=== PATIENT | female | born 1975 | race Caucasian/White ===

== ENCOUNTER 2018-04-14 15:56 | Outpatient (REF) | payer MEDICAID, SELFPAY ==
[2018-04-14 21:44] LABS: Abs Immature Grans 0.04 k/cumm (0.0-0.09); Absolute Basophil Count 0.03 k/cumm (0.0-0.2); Absolute Eosinophil Count 0.13 k/cumm (0.0-0.7); Absolute Lymphocyte Count 3.36 k/cumm (1.2-3.4); Absolute Monocyte Count 0.93 k/cumm (0.11-0.7); Absolute Neutrophil Count 6.03 k/cumm (1.2-6.7); Basophils % 0.3; Eosinophils % 1.2; HCT 43.4 % (36.0-46.0); HGB 14.5 g/dL (12.0-15.5); Immature Grans % 0.4; Lymphocytes % 31.9; Mean Corp. HGB Concentration 33.4 g/dL (32.0-36.0); Mean Corpuscular Hemoglobin 30.9 pg (27.0-33.0); Mean Corpuscular Volume 92.5 fL (80-95); Mean Platelet Volume 10.9 fL (8.0-11.0); Monocytes % 8.8; Neutrophils % 57.4; Platelet Count 290 x1000/uL (130-400); RBC 4.69 m/cumm (4.00-5.20); RBC Distribution Width 13.3 % (11.7-14.6); White Blood Cell Count 10.52 k/cumm (4.4-10.8)
[2018-04-14 22:10] LABS: ALT 51 U/L (12-78); AST 25 U/L (15-37); Albumin 3.5 g/dL (3.4-5.0); Alkaline Phosphatase 73 U/L (46-116); Amylase 52 U/L (25-115); BUN 11 mg/dL (7-18); Bilirubin, Total 0.3 mg/dL (0.2-1.0); CREATININE 1.04 mg/dL (0.55-1.02); Calcium 9.6 mg/dL (8.5-10.1); Chloride 102 mmol/L (98-107); Estimated GFR 57.57 (mL/min/1.73m2); Glucose 108 mg/dL (70-100); Lipase 152 U/L (73-393); Potassium 4.2 mmol/L (3.5-5.1); Sodium 140 mmol/L (136-145); Total Protein 7.2 g/dL (6.4-8.2)
[2018-04-14 22:30] LABS: Anion Gap 7.4 mmol/L (3-11); CO2 30.6 mmol/L (21.0-32.0)
== END 2018-04-14 16:16 ==
LOC: NCHCN 15:56
PROVIDERS: PCP Family Medicine; Visit Provider Family Medicine
DX: R10.9 Unspecified abdominal pain (principal); R14.0 Abdominal distension (gaseous); R11.2 Nausea with vomiting, unspecified
CPT/HCPCS: 80053; 83690; 82150; 84443; 85025

== ENCOUNTER 2020-09-27 11:09 | Outpatient (REF) | payer MEDICAID, SELFPAY ==
[2020-09-27 14:14] LABS: Hemoglobin A1C 5.8 % (<5.7)
[2020-09-27 14:21] LABS: ALT 53 U/L (14-59); AST 28 U/L (15-37); Albumin 3.7 g/dL (3.4-5.0); Alkaline Phosphatase 83 U/L (46-116); Anion Gap 7.6 mmol/L (3-11); BUN 12 mg/dL (7-18); Bilirubin, Total 0.4 mg/dL (0.2-1.0); CO2 28.4 mmol/L (21.0-32.0); Calculated LDL 193 mg/dL (<100); Chloride 103 mmol/L (98-107); Cholesterol 261 mg/dL (<200); Estimated GFR 59.69 (mL/min/1.73m2); Glucose 91 mg/dL (74-106); HDL Cholesterol 32 mg/dL (40-60); Potassium 4.1 mmol/L (3.5-5.1); Sodium 139 mmol/L (136-145); Total Protein 7.3 g/dL (6.4-8.2); Triglyceride 181 mg/dL (<150)
== END 2020-09-27 11:10 | disposition home or self-care (01) ==
LOC: NCHCN 11:09
PROVIDERS: PCP Family Medicine; Visit Provider Family Medicine
DX: I10 Essential (primary) hypertension (principal); K76.0 Fatty (change of) liver, not elsewhere classified; E66.9 Obesity, unspecified; Z13.1 Encounter for screening for diabetes mellitus; Z00.00 Encounter for general adult medical examination without abnormal findings
CPT/HCPCS: 80053; 80061; 83036

== ENCOUNTER 2021-06-19 16:34 | Outpatient (REF) | payer MEDICAID, SELFPAY ==
[2021-06-21 13:56] LABS: COVID-19 RT-PCR UVMMC Result Negative (Negative)
== END 2021-06-19 16:35 | disposition home or self-care (01) ==
LOC: NCHCN 16:34
PROVIDERS: PCP Family Medicine; Visit Provider Family Medicine
DX: Z20.822 Contact with and (suspected) exposure to COVID-19 (principal); J06.9 Acute upper respiratory infection, unspecified
CPT/HCPCS: U0003

== ENCOUNTER 2021-12-16 13:43 | Outpatient (REF) | payer MEDICAID, SELFPAY ==
[2021-12-16 14:36] LABS: HCT 44.4 % (36.0-46.0); HGB 14.2 g/dL (11.2-15.7); MCH 30.7 pg (27.0-33.0); MCV 96 fL (80-95); MPV 10.3 fL (8.0-11.0); Platelet Count 287 10^3/uL (130-400); RBC 4.63 10^6/uL (3.93-5.22); RDW 12.7 % (11.7-14.6); RDW-SD 44.6 fL; WBC 9.02 10^3/uL (4.4-10.8)
[2021-12-16 15:09] LABS: ALT 32 U/L (14-59); AST 15 U/L (15-37); Albumin 3.6 g/dL (3.4-5.0); Alkaline Phosphatase 72 U/L (46-116); Anion Gap 9.8 mmol/L (3-11); BUN 11 mg/dL (7-18); Bilirubin, Total 0.3 mg/dL (0.2-1.0); CO2 25.2 mmol/L (21.0-32.0); CREATININE 1.2 mg/dL (0.55-1.02); Calcium 8.9 mg/dL (8.5-10.1); Chloride 101 mmol/L (98-107); Estimated GFR 48.15 (mL/min/1.73m2); Glucose 80 mg/dL (74-106); Potassium 4.2 mmol/L (3.5-5.1); Sodium 136 mmol/L (136-145); TSH (W/Ref FT4) 5.61 uIU/mL (0.36-3.74); Total Protein 6.9 g/dL (6.4-8.2)
[2021-12-16 15:35] LABS: Hemoglobin A1C 5.6 % (<5.7)
[2021-12-16 15:55] LABS: Vitamin D 25 Total 12.9 ng/mL (30-100)
[2021-12-17] LABS: Calculated LDL 204 mg/dL (<100); Cholesterol 297 mg/dL (<200); HDL Cholesterol 36 mg/dL (40-60); Triglyceride 286 mg/dL (<150); Vitamin B12 133 pg/mL (193-986)
[2021-12-17 10:15] LABS: Hepatitis C Ab w Rflx HCV PCR Negative (Negative)
[2021-12-17 10:33] LABS: HIV-1/2 Ag & Ab Screen Negative (Negative)
[2021-12-17 19:05] LABS: Folate 10.6 ng/mL (See Note)
== END 2021-12-16 13:44 | disposition home or self-care (01) ==
LOC: NCHCN 13:43
PROVIDERS: PCP Family Medicine; Visit Provider Family Medicine
DX: D75.89 Other specified diseases of blood and blood-forming organs (principal); R06.09 Other forms of dyspnea; R73.09 Other abnormal glucose; K76.0 Fatty (change of) liver, not elsewhere classified; Z11.59 Encounter for screening for other viral diseases; E78.6 Lipoprotein deficiency; R53.83 Other fatigue; M79.18 Myalgia, other site; Z11.4 Encounter for screening for human immunodeficiency virus [HIV]; E55.9 Vitamin D deficiency, unspecified; E53.8 Deficiency of other specified B group vitamins
CPT/HCPCS: 80053; 80061; 82306; 85027; 86803; 87389; 82607; 82746; 83036; 84439; 84443

== ENCOUNTER 2022-02-07 09:03 | Outpatient (REF) | payer MEDICAID, SELFPAY ==
[2022-02-07 15:24] LABS: HCT 44.1 % (36.0-46.0); HGB 14.4 g/dL (11.2-15.7); MCH 30.4 pg (27.0-33.0); MCHC 32.7 % (32.0-36.0); MCV 93 fL (80-95); MPV 11.5 fL (8.0-11.0); Platelet Count 275 10^3/uL (130-400); RBC 4.74 10^6/uL (3.93-5.22); RDW 12.8 % (11.7-14.6); WBC 7.43 10^3/uL (4.4-10.8)
[2022-02-07 16:47] LABS: Vitamin B12 508 pg/mL (193-986)
== END 2022-02-07 09:04 | disposition home or self-care (01) ==
LOC: NCHCN 09:03
PROVIDERS: PCP Family Medicine; Visit Provider Family Medicine
DX: E53.8 Deficiency of other specified B group vitamins (principal); R53.83 Other fatigue
CPT/HCPCS: 85027; 82607

== ENCOUNTER 2022-09-05 11:39 | Outpatient (REF) | payer MEDICAID, SELFPAY ==
[2022-09-05 15:35] LABS: Hemoglobin A1C 5.7 % (<5.7)
[2022-09-05 15:37] LABS: Vitamin D 25 Total 13.6 ng/mL (30-100)
[2022-09-05 15:40] LABS: ALT 38 U/L (14-59); AST 31 U/L (15-37); Albumin 3.6 g/dL (3.4-5.0); Alkaline Phosphatase 69 U/L (46-116); Anion Gap 9.5 mmol/L (3-11); BUN 9 mg/dL (7-18); Bilirubin, Total 0.3 mg/dL (0.2-1.0); CO2 25.5 mmol/L (21.0-32.0); CREATININE 0.9 mg/dL (0.55-1.02); Chloride 103 mmol/L (98-107); Estimated GFR 78.86 (mL/min/1.73m2); Glucose 86 mg/dL (74-106); Potassium 4.1 mmol/L (3.5-5.1); Sodium 138 mmol/L (136-145); TSH (W/Ref FT4) 1.36 uIU/mL (0.36-3.74); Total Protein 7.4 g/dL (6.4-8.2)
[2022-09-05 15:44] LABS: Vitamin B12 > 2000 pg/mL (193-986)
== END 2022-09-05 11:40 | disposition home or self-care (01) ==
LOC: NCHCN 11:39
PROVIDERS: PCP Family Medicine; Visit Provider Family Medicine
DX: E53.8 Deficiency of other specified B group vitamins (principal); E55.9 Vitamin D deficiency, unspecified; R73.09 Other abnormal glucose; E66.9 Obesity, unspecified; I10 Essential (primary) hypertension
CPT/HCPCS: 80053; 82306; 82607; 83036; 84443

== ENCOUNTER 2022-12-26 13:57 | Outpatient (REF) | payer MEDICAID, SELFPAY ==
[2022-12-26 15:26] LABS: HCT 43.7 % (36.0-46.0); HGB 14.2 g/dL (11.2-15.7); MCH 30.8 pg (27.0-33.0); MCHC 32.5 % (32.0-36.0); MCV 95 fL (80-95); MPV 10.1 fL (8.0-11.0); Platelet Count 294 10^3/uL (130-400); RBC 4.61 10^6/uL (3.93-5.22); RDW 12.8 % (11.7-14.6); RDW-SD 44.8 fL; WBC 9.16 10^3/uL (4.4-10.8)
[2022-12-26 15:35] LABS: Anion Gap 7.2 mmol/L (3-11); BUN 9 mg/dL (7-18); CO2 23.8 mmol/L (21.0-32.0); CREATININE 0.9 mg/dL (0.55-1.02); Calcium 8.8 mg/dL (8.5-10.1); Chloride 105 mmol/L (98-107); Estimated GFR 78.86 (mL/min/1.73m2); Glucose 103 mg/dL (74-106); Potassium 4.7 mmol/L (3.5-5.1); Sodium 136 mmol/L (136-145)
[2022-12-26 15:38] LABS: INR 0.9 (0.9-1.1); Prothrombin Time 9.6 sec (9.3-11.0)
[2022-12-26 16:03] LABS: Vitamin D 25 Total 25.2 ng/mL (30-100)
== END 2022-12-26 13:58 | disposition home or self-care (01) ==
LOC: NCHCN 13:57
PROVIDERS: PCP Family Medicine; Visit Provider Family Medicine
DX: I10 Essential (primary) hypertension (principal); E55.9 Vitamin D deficiency, unspecified; E53.8 Deficiency of other specified B group vitamins
CPT/HCPCS: 80048; 82306; 85027; 85610

== ENCOUNTER 2024-02-23 17:16 | Outpatient (REF) | payer MEDICAID, SELFPAY ==
[2024-02-23 15:16] LABS: Hemoglobin A1C 5.4 % (<5.7)
[2024-02-23 16:19] LABS: ALT 23 U/L (14-59); AST 10 U/L (15-37); Albumin 3.7 g/dL (3.4-5.0); Alkaline Phosphatase 64 U/L (46-116); Anion Gap 8.7 mmol/L (3-11); BUN 9 mg/dL (7-18); Bilirubin, Total 0.23 mg/dL (0.2-1.0); CO2 27.3 mmol/L (21.0-32.0); Calcium 9.1 mg/dL (8.5-10.1); Calculated LDL 246 mg/dL (<100); Chloride 102 mmol/L (98-107); Cholesterol 330 mg/dL (<200); Estimated GFR 68.63 (mL/min/1.73m2); Folate 11.9 ng/mL (8.6-20.0); Glucose 80 mg/dL (74-106); HDL Cholesterol 37 mg/dL (40-60); Potassium 4.6 mmol/L (3.5-5.1); Sodium 138 mmol/L (136-145); TSH 2.52 uIU/Ml (0.36-3.74); Total Protein 6.6 g/dL (6.4-8.2); Triglyceride 239 mg/dL (<150); Vitamin D 25 Total 18.6 ng/mL (30-100)
[2024-02-23 16:32] LABS: Vitamin B12 > 2000 pg/mL (193-986)
[2024-02-23 16:49] LABS: FREE T4 1.17 ng/dL (0.76-1.46)
--- OUTSIDE RECORDS SUMMARY | 2024-02-23 17:18 | XMS_ITS | Encounter Summary ---
Author Organization [facility] Address [address] [place] [address] Care Team Providers Care Major League Baseball Player Name Role Phone Diya Gifford MD Primary Care Provide r Dariana Juarez MD Unavailable [phone] Encounter Details Date Type Department Care Team (Late st Contact Info) Description 10/30/2022 Orders Only [facility] [address] [place] [address] Gwendolyn Martinez MA Encounter for loop recorder check (Primary Dx) Social History Tobacco Use Types Packs/Day Years Used Date Smoking Tobacco: Never Smokeless Tobacco: Never Alcohol Use Standard Drinks/Week Comments No 0 (1 standard drink = 0.6 oz pur e alcohol) Interpersonal Safety Answer Date Record ed Physically Hurt Never 01/29/2020 Verbally Threaten Not on file 01/29/2020 Sex and Gender Information Value Date Recorded Sex Assigned at Female 09/21/2023 8:38 EDT Gender Identity Female 06/08/2019 10:16 EST Sexual Orientation Not on file documented as of this encounter Functional Status Functional Status Response Date of Assess ment Because of a physical, menta l, or emotional condition, does this person have difficulty doing errands alone such as visiting a doctor's office or shopping? No 10/31/2021 Cognitive Status Response Date of Assessm ent Because of a physical, menta l, or emotional condition, does this person have serious difficulty concentrating, remembering, or making decisions? No 10/31/2021 documented as of this encounter Plan of Treatment Upcoming Encounters Date Type Department Care Team (Late st Contact Info) Description 03/04/2024 11:30 EDT Office Visit [facility] Interventional Pain [address] [place], [place] [phone] Percy Molina MD 62 [facility] [address] [place] [address] 04/26/2024 9:15 EDT Office Visit [facility] Interventional Pain [address] [place] [address] Percy Molina MD 62 [facility] [address] [place] [phone] 01/25/2026 12:00 EDT Office Visit [facility] Hematology & Oncology - [facility] [address] [place], [place] [address] Jorge Lim MD 111 [facility], [address] [place] [phone] documented as of this encounter Procedures Procedure Name Priority Date/Time Associated Diagnosis Comments CARDIAC IMPLANT CHECK - REMOTE MONITOR Routine 10/30/2022 12:24 EDT Encounter for loop recorder check documented in this encounter Results * CARDIAC IMPLANT CHECK - REMOTE - LOOP RECORDER (ILR) (10/30/2022 12:24 EDT) Anatomical Region Laterality Modality Device Narrative 10/30/2022 12:24 EDT I have reviewed the implantable loop recorder interrogation. ??I agree with the findings. See scanned document for details of remote download. Dano Victoria NP Procedure Note Dano Victoria NP - 10/30/2022 I have reviewed the implantable loop recorder interrogation. I agree withthe findings. See scanned document for details of remote download. Dano Victoria NP Dano Victoria INTERNATIONAL LOGISTICS MANAGER CV IMPLANTABLE CARDI AC DEVICE documented in this encounter Visit Diagnoses Diagnosis Encounter for loop recorder check- Primary Fitting and adjustment of other cardiac device documented in this encounter Care Teams Major League Baseball Player Relationship Specialty Start Date End Date Diya Gifford MD [address] [place] [address] [address] [place], [place] [address] PCP - General 07/26/19 Dariana Juraez MD [address] [place] [address]- [address] [place] [phone] Consulting Clinician Cardiovascular Disease 02/06/22 documented as of this encounter
--- OUTSIDE RECORDS SUMMARY | 2024-02-23 17:18 | XMS_ITS | Encounter Summary ---
Author Organization [facility] Address [address] [place] [address] Care Team Providers Care Air Traffic Controller Name Role Phone Diya Gifford MD Primary Care Provide r Dariana Juarez MD Unavailable [phone] Encounter Details Date Type Department Care Team (Late st Contact Info) Description 12/01/2022 Orders Only [facility] Cardiology Clinic [address] [place] [address] Gwendolyn Martinez MA Encounter for loop [...] Info) Description 03/04/2024 11:30 EDT Office Visit [facility] Interventional Pain [address] [place], [place] [phone] Percy Molina MD 62 [facility] [address] [place] [address] 04/26/2024 9:15 EDT Office Visit [facility] Interventional Pain [address] [place] [address] Percy Molina MD 62 [facility] [address] [place] [address] 01/25/2026 12:00 EDT Office Visit [facility] Hematology & Oncology - [facility] [address] [place], [place] [address] Jorge Lim MD 111 [facility], [address] [place] [phone] documented as of this encounter Procedures Procedure Name Priority Date/Time Associated Diagnosis Comments CARDIAC IMPLANT CHECK - REMOTE MONITOR Routine 12/01/2022 8:39 EDT Encounter for loop recorder check documented in this encounter Results * CARDIAC IMPLANT CHECK - REMOTE - LOOP RECORDER (ILR) (12/01/2022 8:39 EDT) Anatomical Region Laterality Modality Device Narrative 12/02/2022 8:39 EDT I have reviewed the implantable loop recorder interrogation. ??I agree with the findings. See scanned document for details of remote download. Dano Victoria NP Procedure Note Dano Victoria NP - 12/02/2022 I have reviewed the implantable loop recorder interrogation. I agree withthe findings. See scanned document for details of remote download. Dano Victoria NP Dano Victoria COMPRESSED GAS TESTER CV IMPLANTABLE CARDI AC DEVICE documented in this encounter Visit Diagnoses Diagnosis Encounter for loop recorder check- Primary Fitting and adjustment of other cardiac device documented in this encounter Care Teams Air Traffic Controller Relationship Specialty Start Date End Date Diya Gifford MD [address] [place] [address] [address] [place], [place] [address] PCP - General 07/26/19 Dariana Juarez MD [address] [place] [address]- [address] [place] [phone] Consulting Clinician Cardiovascular Disease 02/06/22 documented as of this encounter
--- OUTSIDE RECORDS SUMMARY | 2024-02-23 17:18 | XMS_ITS | Encounter Summary ---
Author Organization [facility] Address [address] [place] [address] Care Team Providers Care Scientific Artist Name Role Phone Diya Gifford MD Primary Care Provide r Dariana Juarez MD Unavailable [phone] Encounter Details Date Type Department Care Team (Late st Contact Info) Description 08/10/2023 8:45 EST Phlebotomy Only [facility] 2 Phlebotomy [address] [place], [place] [phone] Religious Activities Director, [facility] Phlebotomy Bleeding disorder ([facility]) Social History Tobacco Use Types Packs/Day Years [...] serious difficulty concentrating, remembering, or making decisions? Yes 03/05/2023 documented as of this encounter Plan of Treatment Upcoming Encounters Date Type Department Care Team (Late st Contact Info) Description 03/04/2024 11:30 EDT Office Visit [facility] Interventional Pain [address] [place], [place] [phone] Percy Molina MD 62 [facility] [address] [place] [address] 04/26/2024 9:15 EDT Office Visit [facility] Interventional Pain [address] [place] [address] Percy Molina MD 62 [facility] [address] [place] [address] 01/25/2026 12:00 EDT Office Visit [facility] Hematology & Oncology - [facility] [address] [place], [place] [phone] Jorge Lim MD 111 [facility], [address] [place] [phone] documented as of this encounter Procedures Procedure Name Priority Date/Time Associated Diagnosis Comments MISCELLANEOUS TEST, AK[place] Routine 08/10/2023 9:14 EST Bleeding disorder (HCC-CMS) MISCELLANEOUS TEST, LEVINE Routine 08/10/2023 9:14 EST Bleeding disorder (HCC-CMS) MISCELLANEOUS TEST, [place] Routine 08/10/2023 9:14 EST Bleeding disorder (HCC-CMS) documented in this encounter Results * MISCELLANEOUS TEST, LEVINE (08/10/2023 9:14 EST) Miscellaneous Test, [place] SEE NOTE 08/20/2023 15:23 EST [facility] Comment: Test ? Result ? Flag ??Unit ??RefValue Platelet TEM, B ??Platelet TEM ? Performed ?Interpretation ? SEE NOTE ?IMPRESSION: ?Platelet transmission electron microscopy (PTEM) studies ?demonstrate essentially normal dense granules, alpha ?granules and other ultra-structures. No abnormal inclusions ?identified. ?ELECTRON MICROSCOPIC DESCRIPTION: ?PTEM studies are performed. The quality of the EM studies ?is adequate. ?Whole mount PTEM study demonstrates essentially normal mean ?dense body count, 2.8 dense granules per platelet (100 ?platelets are counted; normal adult range is greater than ?or equal to 1.2 dense granules per platelet). ??There are no ?abnormal dense granules identified. Note: Dense body count ?could be falsely low due to inadequate sample ?transportation or storage. ?Thin section PTEM study demonstrates normal platelet ?ultra-structure with mild distortion of the platelet ?morphology, likely due to sample transportation or storage. ? There is no evidence of alpha granule deficiency, abnormal ?membranous inclusions or other abnormalities. ?Reviewed by: DALE Nance ? ADDITIONAL INFORMATION ?This test was developed and its performance characteristics ?determined by [facility] in a manner consistent with CLIA ?requirements. This test has not been cleared or approved by ?the U.S. Food and Drug Administration. ?Test Performed by: ?[facility] ?[address] [place] [address] ?Senior Technical Business Analyst: Liban Aly M.D. Ph.D.; CLIA# [id number] Blood VENOUS BLOOD / Unknown Venipuncture / Unknown 08/10/2023 9:14 EST 08/10/2023 9:24 EST Jorge Lim MD CHEMISTRY & BLOOD GAS ORDERABLES Performing Organization Address [facility]/State/[facility] Co de Phone Number [facility] [address] [place] [address] * MISCELLANEOUS TEST, [place] (08/10/2023 9:14 EST) Miscellaneous Test, [place] SEE NOTE 08/26/2023 12:22 EST [facility] Comment: Test ? Result ?? Flag ??Unit ?RefValue Fibrinolysis Profile II ?SEE NOTE ??Not ReportedNot Reported ??Not Reported ?Testing is complete. Final report has been sent to the ?referring laboratory. ?Note: There may be a delay of up to 2 hours before ?report is available to view. ?Test Performed by: ?[facility] ?[address] ?[address] ?[place] [address] Blood VENOUS BLOOD / Unknown Venipuncture / Unknown 08/10/2023 9:14 EST 08/10/2023 9:20 EST Narrative [facility] - 08/26/2023 12:22 EST See scanned/supplementary report. Jorge Lim MD CHEMISTRY & BLOOD GAS ORDERABLES [facility] [address] [place] [address] * MISCELLANEOUS TEST, [place] (08/10/2023 9:14 EST) Pathologist [facility] Miscellaneous Test, [place] SEE NOTE 08/12/2023 11:18 EST [facility] Comment: Test ?Result ?Flag ??Unit ??RefValue Platelet Glycoprotein Flow, B ??GPIIb CD41 ?102 ? % ? >=70% ?GPIIIa CD61 ? 107 ? % ? >=70% ?GPIX CD42a ?129 ? % ? >=70% ?GPIb-alpha CD42b ?109 ? % ? >=70% ?GPIa CD49b ?70 ?% ? >=60% ?GPVI ?99 ?% ? >=70% ?Final Diagnosis ? SEE NOTE ?The platelet surface glycoprotein (GP) profiles are ?completely normal. There are no significant deficiencies of ?CD41 (GPIIb), CD42a (GPIX), CD42b (GPIb-alpha), CD49b ?(GPIa), CD61 (GPIIIa) or GPVI. ?The specimen received is satisfactory for quality analysis. ?Reviewed by: DALE Nance ? ADDITIONAL INFORMATION ?Antibodies to the following antigens were used for cell ?gating and interpretation: CD41, CD61, CD42a, CD42b, CD49b ?and GPVI. ?This test was developed and its performance characteristics ?determined by [facility] in a manner consistent with CLIA ?requirements. This test has not been cleared or approved by ?the U.S. Food and Drug Administration. ?Test Performed by: ?[facility] ?[address] [place] [address] ?Senior Technical Business Analyst: Liban Aly M.D. Ph.D.; IA# [id number] Blood VENOUS BLOOD / Unknown Venipuncture / Unknown 08/10/2023 9:14 EST 08/10/2023 9:24 EST Jorge Lim MD CHEMISTRY & BLOOD GAS ORDERABLES [facility] [address] [place] [address] documented in this encounter Visit Diagnoses Diagnosis Bleeding disorder ([facility]) Unspecified hemorrhagic conditions documented in this encounter Care Teams Scientific Artist Relationship Specialty Start Date End Date Diya Gifford MD [address] [place] [address] PCP - General 07/26/19 Dariana Juarez MD [address] [place] [address] [address] [place] [phone] Consulting Clinician Cardiovascular Disease 02/06/22 documented as of this encounter
--- OUTSIDE RECORDS SUMMARY | 2024-02-23 17:18 | XMS_ITS | Encounter Summary ---
Author Organization [facility] Address [address] [place] [address] Care Team Providers Care Civil Manager Name Role Phone Diya Gifford MD Primary Care Provide r Dariana Juarez MD Unavailable Reason for Visit * Reason Onset Date Comments Appointment Related 10/07/2023 Encounter Details Date Type Department Care Team (Late st Contact Info) Description 10/07/2023 Telephone [facility] Interventional Pain [address] [facility] [place] [address] Hailee Caceres PA-C 62 [facility] [address] [place] [address] Appointment Related Social History Tobacco Use Types Packs/Day Years [...] No 10/31/2021 Cognitive Status Response Date of Assess ent Because of a physical, menta l, or emotional condition, does this person have serious difficulty concentrating, remembering, or making decisions? Yes 03/05/2023 documented as of this encounter Miscellaneous Notes * Telephone Encounter - Fabiana Lockett - 10/07/2023 0822 EDT Left message for patient letting her know that provider is out ill and we tentatively rescheduled her to the same time at 10/14/2023 documented in this encounter Plan of Treatment Upcoming Encounters Date Type Department Care Team (Late st Contact Info) Description 03/04/2024 11:30 EDT Office Visit [facility] Interventional Pain [address] [place] [address] Percy Molina MD 62 [facility] [address] [place] [phone] 04/26/2024 9:15 EDT Office Visit [facility] Interventional Pain [address] [place], [place] [phone] Percy Molina MD [address] [place] [address] [place] [phone] 01/25/2026 12:00 EDT Office Visit [facility] Hematology & Oncology - [facility] [address] [place], [place] [phone] Jorge Lim MD [address] [place] [address], [facility] [address] [place] [address] documented as of this encounter Visit Diagnoses Not on filedocumented in this encounter Care Teams Civil Manager Relationship Specialty Start Date End Date Diya Gifford MD [address] [place] [address] [address] [place] [address] PCP - General 07/26/19 Dariana Juarez MD [address] [place] [address] [address] [place] [phone] Consulting Clinician Cardiovascular Disease 02/06/22 documented as of this encounter
--- OUTSIDE RECORDS SUMMARY | 2024-02-23 17:18 | XMS_ITS | Encounter Summary ---
Author Organization [facility] Address [address] [place] [address] Care Team Providers Care Geriatric Nursing Assistant Name Role Phone Diya Gifford MD Primary Care Provide r Dariana Juarez MD Unavailable [phone] Encounter Details Date Type Department Care Team (Late st Contact Info) Description 02/27/2023 Orders Only [facility] Cardiology Clinic [address] [place] [address] Gwendolyn Martinez MA Encounter for loop [...] Info) Description 03/04/2024 11:[address] [facility] Interventional Pain [address] [place], [place] [phone] Percy Molina MD 62 [facility] [address] [place] [phone] 04/26/2024 9:[address] [facility] Interventional Pain [address] [place] [address] Percy Molina MD [address] [phone] 01/25/2026 12:00 EDT Office Visit [facility] Hematology & Oncology - [address] [address] Jorge Lim MD 111 [facility], [address] [place] [phone] documented as of this encounter Visit Diagnoses Diagnosis Encounter for loop recorder check- Primary Fitting and adjustment of other cardiac device documented in this encounter Orders Imaging Orders Without Results Count Last Order ed Date First Ordered Date CARDIAC IMPLANT CHECK - REMOTE MONITOR 1 documented in this encounter Care Teams Geriatric Nursing Assistant Relationship Specialty Start Date End Date Diya Gifford MD [address] [facility] [address] [place], [place] [address] PCP - General 07/26/19 Dariana Juarez MD [address] [place], [place] [address]A [facility] [address] [place] [phone] Consulting Clinician Cardiovascular Disease 02/06/22 documented as of this encounter
--- OUTSIDE RECORDS SUMMARY | 2024-02-23 17:18 | XMS_ITS | Encounter Summary ---
Author Organization [facility] Address [address] [place] [address] Care Team Providers Care Computer Graphic Designer Name Role Phone Diya Gifford MD Primary Care Provide r Dariana Juarez MD Unavailable [phone] Reason for Visit * Reason Comments Follow-up Implant - medtronic Encounter Details Date Type Department Care Team (Late st Contact Info) Description 01/28/2023 9:00 EDT Office Visit [facility] Cardiology Clinic [address] [place], [place] [id number] Dariana Juarez MD 111 [facility] [address] [place] [address] Syncope, unspecified syncope type (Primary Dx) Social History Tobacco Use Types [...] on file documented as of this encounter Last Filed Vital Signs Vital Sign Reading Time Taken Comments Blood Pressure 146/86 01/28/2023 0830 EDT Pulse 100 01/28/2023 0830 EDT Temperature - - Respiratory Rate - - Oxygen Saturation 99% 01/28/2023829 EDT Inhaled Oxygen Concentration - - Weight 93.5 kg (206 lb 3.2 oz) 01/28/2023829 E DT Height 152.4 cm (5') 01/28/2023829 EDT Body Mass Index 40.27 01/28/2023829 EDT documented in this encounter Functional Status Functional Status Response [...] No 10/31/2021 documented as of this encounter Progress Notes * Dariana Juarez MD - 01/28/2023 09 EDT [facility] Cardiology Office Visit Subjective: Chief Complaint(s): Follow-up (Implant - medtronic) HPI: 48-year-old female with history of hypertension who presents for evaluation of recurrent syncope. She currently has a loop recorder in to evaluate for arrhythmias. Her other cardiac testing has been unrevealing. Since her loop recorder was placed, she had 1 episode of syncope and several episodes of what she calls fits. There were no arrhythmias to correlate with these episodes. Cardiac History She notes these episodes started in July 2021. The original episode occurred at around 2 AM when she got up in the middle of the night-she syncopized at that time without prodrome. Went to the emergency room at [facility] was admitted for monitoring. Echocardiogram at that time was normal.ECG was normal. She was discharged with plan for Holter monitoring. She was unable to tolerate the Holter due to reaction to the adhesives-but no arrhythmias for the short time it was worn. Since that time she has had 3 additional episodes. No prodrome with each of these episodes. One occurred while she was standing up at her kitchen sink cleaning up. The next thing she remembers was being on the ground. The most recent episode was last week at her son's competition. She was getting up from a sitting position and then passed out. She has no previous cardiac history. She is also endorsing worsening weakness over the last couple of months-including dropping objects and weak legs. Endorses shortness of breath and overall fatigue. Also endorsing back and neck pain. Never smoker. Does not drink alcohol. Denies illicit drugs. She notes she has a family history of cardiac disease. Her father had multiple syncopal episodes prior to being found in his driveway at the age of 51. She notes he underwent an autopsy which stated his cause of as heart attack. His 2 brothers also at ages 50 and 55 of heart attacks. Outpatient Medications Marked as Taking for the 01/28/23 encounter (Office Visit) with Dariana Juarez MD Medication Sig ??? amitriptyline (ELAVIL) 100 mg tablet 1 Tablet daily. ??? cetirizine (ZYRTEC) 10 mg tablet Take 1 Tablet by mouth if needed. Reported on 07/08/2016 ??? cyanocobalamin (VITAMIN B-12) 500 mcg tablet Take 1 Tablet by mouth daily. ??? diclofenac sodium gel Apply topically 2 times daily. ??? doxycycline (VIBRAMYCIN) 100 mg capsule Take by mouth daily. ??? fexofenadine (ZACHARY) 60 mg tablet Take 1 Tablet by mouth 2 times daily. ??? gabapentin (NEURONTIN) 400 mg capsule Take 2 Capsules by mouth daily. ??? hydrOXYzine (VISTARIL) 25 mg capsule Take 1 Capsule by mouth 2 times daily. ??? ibuprofen (MOTRIN) 600 mg tablet Take 1 Tablet by mouth every 6 hours as needed for Pain. ??? metoprolol XL (TOPROL-XL) 100 mg tablet Take 1 Tablet by mouth daily. ??? omeprazole (PRILOSEC) 20 mg capsule Take 1 Capsule by mouth daily. ??? oxycodone-acetaminophen (PERCOCET) 5-325 mg per tablet Take 2 Tabs by mouth every 8 hours as needed for Pain. ??? SETLAKIN 0.15 mg-30 mcg (91) per tablet Take 1 Tablet by mouth daily. ??? Sodium Fluoride 1.1 % cream Place onto teeth. ??? traZODone (DESYREL) 50 mg tablet ??? venlafaxine (EFFEXOR-XR) 150 mg XR capsule Take 75 mg by mouth daily. I have reviewed current problem list and current medications. ROS: Review of Systems Constitutional: Positive for malaise/fatigue. Respiratory: Positive for shortness of breath. Cardiovascular: Positive for PND. Musculoskeletal: Positive for joint pain and neck pain. Neurological: Positive for loss of consciousness and weakness. Objective: Examination: Vitals: BP (!) 146/86 (BP Cuff Location: Right arm, BP Patient Position: Sitting, BP Cuff Sizes: Adult, regular) Pulse 100 Ht 152.4 cm (60) Wt 93.5 kg (206 lb 3.2 oz) SpO2 99% BMI 40.27 kg/m?? Body mass index is 40.27 kg/m??. Labs: No results found for: CHOL, HDL, LDL, LDLBASE, TRIG, CHOLHDL No results found for: BUN, CREATININE, K, MG, CA, WBC, HGB, PLT, TSH No results found for: HGBA1C No results found for: NTBNP Assessment & Plan: 48-year-old female with history of hypertension who presents for evaluation of recurrent syncope. Recurrent syncope: It appears she has episodes of true syncope and also episodes where she does notlose consciousness and has a loss of tone in her entire body (which she identifies as fits.) Doesappear to have a family history of cardiac disease, but it sounds more like early coronary disease than unexplained arrhythmogenic . ECG with normal QTc. TTE from [facility] was normal. Stress test was normal. Month-long cardiac specialist did not catch any syncopal episodes, so proceeded with loop recorder. She has had several fits and 1 syncopal episode with monitoring with no arrhythmia correlate. Overall, I see no cardiac etiology for her symptoms. I encouraged her to make follow-up with both her primary care doctor and neurology to explore alternative etiologies. We will continue with loop recording for another couple months, then will contact her to arrange for removal. I spent a total of 30 minutes on the date of this encounter as indicated in the above progress note. Dariana Juarez MD * Chandu Mills - 01/28/2023 0900 EDT 01/28/23 OV note faxed to PCP. documented in this encounter Plan of Treatment Upcoming Encounters Date Type Department Care Team (Late st Contact Info) Description 03/04/2024 11:30 EDT Office Visit [facility] Interventional Pain [address] [place], [place] [phone] Percy Molina MD [address] [place] [address] [place] [phone] 04/26/2024 9:15 EDT Office Visit [facility] Interventional Pain [address] [place], [place] [phone] Percy Molina MD [address] [place] [phone] 01/25/2026 12:00 EDT Office Visit [facility] Hematology & Oncology - [address] [phone] Jorge Lim MD 111 [facility], [facility] 2 [place] [address] documented as of this encounter Visit Diagnoses Diagnosis Syncope, unspecified syncope type- Primary documented in this encounter Care Teams Computer Graphic Designer Relationship Specialty Start Date End Date Diya Gifford MD [address] [place] [address] [address] [place], [place] [address] PCP - General 07/26/19 Dariana Juarez MD [address] [place] [address] [address] [place] [phone] Consulting Clinician Cardiovascular Disease 02/06/22 documented as of this encounter
--- OUTSIDE RECORDS SUMMARY | 2024-02-23 17:18 | XMS_ITS | Encounter Summary ---
Author Organization [facility] Address [address] [place] [address] Care Team Providers Care Production Pattern Maker Name Role Phone Diya Gifford MD Primary Care Provide r Dariana Juarez MD Unavailable [phone] Reason for Visit * Reason Comments Back Pain Encounter Details Date Type Department Care Team (Latest Contact Info) Description 01/15/2024 11:15 EDT Office Visit [facility] Interventional Pain [address] [place] [address] Hailee Caceres PA-C 62 [facility] [address] [place] [address] Cervical radiculopathy (Primary Dx) Social History Tobacco Use Types [...] Sign Reading Time Taken Comments Blood Pressure 128/88 01/15/2024 1122 EDT Pulse 82 01/15/2024 1122 EDT Temperature - - Respiratory Rate - - Oxygen Saturation 100% 01/15/2024 1122 EDT Inhaled Oxygen Concentration - - Weight - - Height - - Body Mass Index - - documented in this encounter Functional Status Functional [...] Yes 03/05/2023 documented as of this encounter Progress Notes * Hailee Caceres PA-C - 01/15/2024 1115 EDT Patient arrived for visit expecting cervical epidural injection. There may have been a miscommunication with scheduling. Will cancel next epidural in Feb and change today's follow up to a injection with Dr. Molina. documented in this encounter Plan of Treatment Upcoming Encounters Date Type Department Care Team (Late st Contact Info) Description 03/04/2024 11:30 EDT Office Visit [facility] Interventional Pain [address] [place], [place] [phone] Peryc Molina MD [address] [place] [phone] 04/26/2024 9:15 EDT Office Visit [facility] Interventional Pain [address] [place] [address] Percy Molina MD [address] [place] [phone] 01/25/2026 12:00 EDT Office Visit [facility] Hematology & Oncology - Main [address] [address] Jorge Lim MD 111 [facility], [facility], Level [address] [place] [phone] documented as of this encounter Visit Diagnoses Diagnosis Cervical radiculopathy- Primary Brachial neuritis or radiculitis nos documented in this encounter Care Teams Production Pattern Maker Relationship Specialty Start Date End Date Diya Gifford MD [address] [place] [address] PCP - General 07/26/19 Dariana Juarez MD [address] [place] [address] [address] [place] [phone] Consulting Clinician Cardiovascular Disease 02/06/22 documented as of this encounter
--- OUTSIDE RECORDS SUMMARY | 2024-02-23 17:18 | XMS_ITS | Encounter Summary ---
Author Organization [facility] Address [address] [place] [address] Care Team Providers Care Earth Science Professor Name Role Phone Diya Gifford MD Primary Care Provide r Dariana Juarez MD Unavailable [phone] Encounter Details Date Type Department Care Team (Late st Contact Info) Description 09/01/[address] [facility] Cardiology Clinic [address] [place] [address] Gwendolyn Martinez MA Encounter for loop [...] Info) Description 03/04/2024 11:30 EDT Office Visit [facility] Interventional Pain [address] [place], [place] [phone] Percy Molina MD 62 [facility] [address] [place] [address] 04/26/2024 9:15 EDT Office Visit [facility] Interventional Pain [address] [place] [address] Percy Molina MD 62 [facility] [address] [place] [address] 01/25/2026 12:00 EDT Office Visit [facility] Hematology & Oncology - [facility] [address] [place], [place] [address] Jorge Lim MD 111 [facility], Level [address] [place] [phone] documented as of this encounter Procedures Procedure Name Priority Date/Time Associated Diagnosis Comments CARDIAC IMPLANT CHECK - REMOTE MONITOR Routine 09/01/2022 7:50 EST Encounter for loop recorder check documented in this encounter Results * CARDIAC IMPLANT CHECK - REMOTE - LOOP RECORDER (ILR) (09/01/2022 7:50 EST) Anatomical Region Laterality Modality Device Narrative 09/08/2022 7:51 EDT I have reviewed the implantable loop recorder interrogation. ??I agree with the findings. See scanned document for details of remote download. Dano Victoria NP Procedure Note Dano Victoria NP - 09/08/2022 I have reviewed the implantable loop recorder interrogation. I agree withthe findings. See scanned document for details of remote download. Dano Victoria NP Dano Victoria CREDIT REVIEW OFFICER CV IMPLANTABLE CARDI AC DEVICE documented in this encounter Visit Diagnoses Diagnosis Encounter for loop recorder check- Primary Fitting and adjustment of other cardiac device documented in this encounter Care Teams Earth Science Professor Relationship Specialty Start Date End Date Diya Gifford MD [address] [place] [address] [address] [place] [address] PCP - General 07/26/19 Dariana Juarez MD [address] [place] [address] [address] [place] [phone] Consulting Clinician Cardiovascular Disease 02/06/22 documented as of this encounter
--- OUTSIDE RECORDS SUMMARY | 2024-02-23 17:18 | XMS_ITS | Encounter Summary ---
Author Organization [facility] Address [address] [place] [address] Care Team Providers Care Knitting Teacher Name Role Phone Diya Gifford MD Primary Care Provide r Dariana Juarez MD Unavailable [phone] Reason for Visit * Reason Onset Date Comments Follow-up 07/01/2023 Encounter Details Date Type Department Care Team (Late st Contact Info) Description 07/01/2023 Telephone [facility] Hematology & Oncology - [facility] [address] [place] [address] Missy Harris RN [address] [place] [address] Follow-up Social History Tobacco Use Types Packs/Day Years [...] Yes 03/05/2023 documented as of this encounter Ordered Prescriptions Prescription Sig Dispensed Refills Start Date End Da te tranexamic acid 650 mg tablet Take 2 tablets three times a day on day of spinal injection; take 1 tablet 3 times a day on day after spinal injection 9 Tablet 1 07/01/2023 01/05/2024 documented in this encounter Miscellaneous Notes * Telephone Encounter - Missy Harris RN - 07/01/2023 1405 EST Spoke to Marilin to let her know that all of the labs that Dr. Lim ordered have been approved by her insurance. The labs have been ordered and she can come have them drawn at her earliest convenience. Marilin asked if she could have the TXA script sent to [facility] instead of [facility] and replied that is possible. A new script has been sent to [facility] in [place]. HAP created for future spi nal injection. Marilin has no further questions and verbalized understanding. documented in this encounter Plan of Treatment Upcoming Encounters Date Type Department Care Team (Late st Contact Info) Description 03/04/2024 11:30 EDT Office Visit [facility] Interventional Pain [address] [place] [address] Percy Molina MD [address] [place] [phone] 04/26/2024 9:15 EDT Office Visit [facility] Interventional Pain [address] [place] [address] Percy Molina MD [address] [place] [phone] 01/25/2026 12:00 EDT Office Visit [facility] Cancer Center Hematology & Oncology - Main [address] [phone] Jorge Lim MD 111 [facility], [facility], Level [address] [place] [phone] documented as of this encounter Visit Diagnoses Not on filedocumented in this encounter Discontinued Medications Medication Sig Discontinue Reason Start Date End Da te tranexamic acid 650 mg tablet Take 2 tablets three times a day on day of spinal injection; take 1 tablet 3 times a day on day after spinal injection Reorder 06/30/2023 07/01/2023 documented as of this encounter Care Teams Knitting Teacher Relationship Specialty Start Date End Date Diya Gifford MD [address] [place] [address] PCP - General 07/26/19 Dariana Juarez MD [address] [place] [address] [address] [place] [phone] Consulting Clinician Cardiovascular Disease 02/06/22 documented as of this encounter
--- OUTSIDE RECORDS SUMMARY | 2024-02-23 17:18 | XMS_ITS | Encounter Summary ---
Author Organization [facility] Address [address] [place] [address] Care Team Providers Care Post Partum Nurse Name Role Phone Diya Gifford MD Primary Care Provide r Dariana Juarez MD Unavailable [phone] Encounter Details Date Type Department Care Team (Late st Contact Info) Description 09/30/2022 Orders Only [facility] Cardiology Clinic [address] [place] [address] Gwendolyn Martinez MA Encounter for loop [...] Info) Description 03/04/2024 11:30 EDT Office Visit [facility] Interventional Pain [address] [place], [place] [phone] Percy Molina MD 62 [facility] [address] [place] [address] 04/26/2024 9:15 EDT Office Visit [facility] Interventional Pain [address] [place] [address] Percy Molina MD 62 [facility] [address] [place] [phone] 01/25/2026 12:00 EDT Office Visit [facility] Hematology & Oncology - [facility] [address] [place], [place] [address] Jorge Lim MD 111 [facility], Level [address] [place] [phone] documented as of this encounter Procedures Procedure Name Priority Date/Time Associated Diagnosis Comments CARDIAC IMPLANT CHECK - REMOTE MONITOR Routine 09/30/2022 9:03 EDT Encounter for loop recorder check documented in this encounter Results * CARDIAC IMPLANT CHECK - REMOTE - LOOP RECORDER (ILR) (09/30/2022 9:03 EDT) Anatomical Region Laterality Modality Device Narrative 09/30/2022 9:03 EDT Remote transmission of ILR reviewed. Good battery status. No arrhythmias, no symptoms. See scanned documents for full details. Procedure Note Sandi Burgess NP - 09/30/2022 Remote transmission of ILR reviewed. Good battery status. No arrhythmias,no symptoms. See scanned documents for full details. Dano Victoria DISPATCH SPECIALIST CV IMPLANTABLE CARDI AC DEVICE documented in this encounter Visit Diagnoses Diagnosis Encounter for loop recorder check- Primary Fitting and adjustment of other cardiac device documented in this encounter Care Teams Post Partum Nurse Relationship Specialty Start Date End Date Diya Gifford MD [address] [place] [address] [address] [place] [address] PCP - General 07/26/19 Dariana Juarez MD [address] [place] [address] [address] [place] [address] Consulting Clinician Cardiovascular Disease 02/06/22 documented as of this encounter
--- OUTSIDE RECORDS SUMMARY | 2024-02-23 17:18 | XMS_ITS | Encounter Summary ---
Author Organization [facility] Address [address] [place] [address] Care Team Providers Care Addressograph Operator Name Role Phone Diya Gifford MD Primary Care Provide r Dariana Juarez MD Unavailable [phone] Encounter Details Date Type Department Care Team (Latest Contact Info) Description 01/15/2024 11:15 EDT - 01/15/2024 23:59 EDT Hospital Encounter [facility] Xray [address] [place] [address] Discharge Disposition: Home or Self Care Social History Tobacco Use Types Packs/Day Years [...] Yes 03/05/2023 documented as of this encounter Medications at Time of Discharge Medication Sig Dispensed Refills Start Date End Date amitriptyline (ELAVIL) 100 mg tablet 1 Tablet daily. 09/19/2021 cetirizine (ZYRTEC) 10 mg tablet Take 1 Tablet by mouth if needed. Reported on 07/08/2016 cyanocobalamin (VITAMIN B-12) 500 mcg tablet Take 1 Tablet by mouth daily. diclofenac sodium gel Apply topically 2 times daily. doxycycline (VIBRAMYCIN) 100 mg capsule Take by mouth daily. 10/09/2021 fexofenadine (ZACHARY) 60 mg tablet Take 1 Tablet by mouth 2 times daily. gabapentin (NEURONTIN) 400 mg capsule Take 2 Capsules by mouth daily. 07/29/2010 hydrOXYzine (VISTARIL) 25 mg capsule Take 1 Capsule by mouth 2 times daily. ibuprofen (MOTRIN) 600 mg tablet Take 1 Tablet by mouth every 6 hours as needed for Pain. Lactobacillus acidophilus (PROBIOTIC) 10 billion cell capsule Take by mouth daily. metoprolol XL (TOPROL-XL) 100 mg tablet Take 1 Tablet by mouth daily. omeprazole (PRILOSEC) 20 mg capsule Take 1 Capsule by mouth daily. oxycodone-acetaminophen (PERCOCET) 5-325 mg per tablet Take 2 Tabs by mouth every 8 hours as needed for Pain. 24 Tab 0 07/29/2010 SETLAKIN 0.15 mg-30 mcg (91) per tablet Take 1 Tablet by mouth daily. 07/30/2021 Sodium Fluoride 1.1 % cream Place onto teeth. tranexamic acid 650 mg tablet Take 2 tablets three times a day on day of spinal injection; take 1 tablet 3 times a day on day after spinal injection 9 Tablet 5 01/05/2024 traZODone (DESYREL) 50 mg tablet 10/04/2021 venlafaxine (EFFEXOR-XR) 150 mg XR capsule Take 75 mg by mouth daily. zolpidem (AMBIEN) 5 mg tablet Take 1 Tablet by mouth at bedtime. 10/10/2023 documented as of this encounter Discharge Disposition Disposition Code Departure Means Destination Home or Self Care documented in this encounter Plan of Treatment Upcoming Encounters Date Type Department Care Team (Late st Contact Info) Description 03/04/2024 11:30 EDT Office Visit [facility] Interventional Pain [address] [place] [address] Percy Molina MD 62 [facility] [address] [place] [address] 04/26/2024 9:15 EDT Office Visit [facility] Interventional Pain [address] [place] [address] Percy Molina MD 62 [facility] [address] [place] [address] 01/25/2026 12:00 EDT Office Visit [email or web address] Cancer Center Hematology & Oncology - [facility] [address] [place], [place] [phone] Jorge Lim MD 111 [facility], [address] [place] [address] documented as of this encounter Procedures Procedure Name Priority Date/Time Associated Diagnosis Comments PAIN CLINIC [place] CERVICAL INJECTION Routine 01/15/2024 15:39 EDT documented in this encounter Results * PAIN CLINIC FL CERVICAL INJECTION (01/15/2024 15:39 EDT) Narrative 01/18/2024 15:40 EDT This is a non-reportable exam. Percy Molina MD IMG OTHER IMAGING OR DERABLES documented in this encounter Visit Diagnoses Not on filedocumented in this encounter Care Teams Addressograph Operator Relationship Specialty Start Date End Date Diya Gifford MD [address] [place] [phone] PCP - General 07/26/19 Dariana Juarez MD [address] [place] [address]A [address] [place] [address] Consulting Clinician Cardiovascular Disease 02/06/22 documented as of this encounter
--- OUTSIDE RECORDS SUMMARY | 2024-02-23 17:18 | XMS_ITS | Encounter Summary ---
Author Organization [facility] Address [address] [place] [address] Care Team Providers Care Solar Energy Installation Manager Name Role Phone Diya Gifford MD Primary Care Provide r Dariana Juarez MD Unavailable [phone] Encounter Details Date Type Department Care Team (Late st Contact Info) Description 02/23/2024 Lab Requisition [facility] Pathology & Laboratory Medicine - [facility] [address] [place] [address] Outr Resulting Lab, Provider Social History Tobacco Use Types Packs/Day Years [...] Info) Description 03/04/2024 11:30 EDT Office Visit [facility] Interventional Pain [address] [place], [place] [phone] Percy Molina MD [address] [place] [phone] 04/26/2024 9:15 EDT Office Visit [facility] Interventional Pain [address] [place] [address] Percy Molina MD [address] [place] [phone] 01/25/2026 12:00 EDT Office Visit [facility] Hematology & Oncology - [address] [phone] Jorge Lim MD 111 [facility], [facility] 2 [place] [phone] Scheduled Orders Name Type Priority Associated Diagnoses Orde r Schedule [facility] Lab Routine Ordered: 02/22 documented as of this encounter Visit Diagnoses Not on filedocumented in this encounter Care Teams Solar Energy Installation Manager Relationship Specialty Start Date End Date Diya Gifford MD [address] [place] [address] [address] [place] [address] PCP - General 07/26/19 Dariana Juarez MD [address] [place] [address] [address] [place] [phone] Consulting Clinician Cardiovascular Disease 02/06/22 documented as of this encounter
--- OUTSIDE RECORDS SUMMARY | 2024-02-23 17:18 | XMS_ITS | Encounter Summary ---
Author Organization [facility] Address [address] [place] [address] Care Team Providers Care Mandrel Press Hand Name Role Phone Diya Gifford MD Primary Care Provide r Dariana Juarez MD Unavailable [phone] Encounter Details Date Type Department Care Team (Late st Contact Info) Description 07/01/2023 Orders Only [facility] Hematology & Oncology - [facility] [address] [place] [address] Missy Harris, RN [address] [place] [address] Bleeding disorder (HCC-CMS) (Primary Dx) Social History Tobacco Use Types [...] Info) Description 03/04/2024 11:30 EDT Office Visit [facility] Interventional Pain [address] [place] [address] Percy Molina MD 62 [facility] [address] [place] [address] 04/26/2024 9:15 EDT Office Visit [facility] Interventional Pain [address] [place] [address] Percy Molina MD 62 [facility] [address] [place] [address] 01/25/2026 12:00 EDT Office Visit [facility] Hematology & Oncology - [facility] [address] [place], [place] [phone] Jorge Lim MD 111 [facility], Level 2 [place] [address] documented as of this encounter Results * MISCELLANEOUS TEST, [place] (08/10/2023 9:14 EST) [facility] Miscellaneous Test, [place] SEE NOTE 08/20/2023 15:23 EST [facility] Comment: Test ? Result ? Flag [...] developed and its performance characteristics ?determined by [facility] in a manner consistent with CLIA ?requirements. This test has not been cleared or approved by ?the U.S. Food and Drug Administration. ?Test Performed by: ?[facility] - [facility] ?[address] [place] [address] ?Psychiatric Assistant: Liban Aly M.D. Ph.D.; CLIA# [id number] Blood VENOUS BLOOD / Unknown Venipuncture / Unknown 08/10/2023 9:14 EST 08/10/2023 9:24 EST Jorge Lim MD CHEMISTRY & BLOOD GAS ORDERABLES [facility] [address] [place] [address] * MISCELLANEOUS TEST, [place] (08/10/2023 9:14 EST) Pathologist [facility] Miscellaneous Test, [place] SEE NOTE 08/26/2023 12:22 EST [facility] Comment: Test ? Result ?? Flag ??Unit ?RefValue Fibrinolysis Profile II ?SEE NOTE ??Not ReportedNot Reported ??Not Reported ?Testing is complete. Final report has been sent to the ?referring laboratory. ?Note: There may be a delay of up to 2 hours before ?report is available to view. ?Test Performed by: ?[facility] ?[address] ?[address] ?[place] [address] Blood VENOUS BLOOD / Unknown Venipuncture / Unknown 08/10/2023 9:14 EST 08/10/2023 9:20 EST Narrative [facility] - 08/26/2023 12:22 EST See scanned/supplementary report. Jorge Lim MD CHEMISTRY & BLOOD GAS ORDERABLES [facility] [address] [place] [address] documented in this encounter Visit Diagnoses Diagnosis Bleeding disorder (HCC-CMS)- Primary Unspecified hemorrhagic conditions documented in this encounter Care Teams Mandrel Press Hand Relationship Specialty Start Date End Date Diya Gifford MD [address] [place] [address] [address] [place] [address] PCP - General 07/26/19 Dariana Juarez MD [address] [place] [address] [address] [place] [phone] Consulting Clinician Cardiovascular Disease 02/06/22 documented as of this encounter
--- OUTSIDE RECORDS SUMMARY | 2024-02-23 17:18 | XMS_ITS | Encounter Summary ---
Author Organization [facility] Address [address] [place] [address] Care Team Providers Care Top Collar Maker Name Role Phone Diya Gifford MD Primary Care Provide r Dariana Juarez MD Unavailable [phone] Reason for Visit * Reason Onset Date Comments Follow-up 07/08/2023 Encounter Details Date Type Department Care Team (Late st Contact Info) Description 07/08/2023 Telephone [facility] Cancer Center Hematology & Oncology - Main [place] [address] [place] [address] Missy Harris RN [address] [place] [address] Follow-up Social History Tobacco Use Types Packs/Day [...] Telephone Encounter - Missy Harris RN - 07/08/2023 1228 EST Spoke to Marilin to let her know that her labs need to be drawn on a Thursday, Thursday or Thursday. She verbalized understanding and plans to get them drawn sometime next week. documented in this encounter Plan of Treatment Upcoming Encounters Date Type Department Care Team (Late st Contact Info) Description 03/04/2024 11:30 EDT Office Visit [facility] Interventional Pain [address] [place], [place] [phone] Percy Molina MD [address] [place] [address] [place] [phone] 04/26/2024 9:15 EDT Office Visit [facility] Interventional Pain [address] [place] [address] Percy Molina MD [address] [place] [address] [address] [place] [address] 01/25/2026 12:00 EDT Office Visit [facility] Hematology & Oncology - [facility] [address] [place], [place] [phone] Jorge Lim MD 111 [facility], Level 2 [place] [address] documented as of this encounter Visit Diagnoses Not on filedocumented in this encounter Care Teams Top Collar Maker Relationship Specialty Start Date End Date Diya Gifford MD 4 [facility] [address] [place], [place] [phone] PCP - General 07/26/19 Dariana Juarez MD [address] [place] [phone] Consulting Clinician Cardiovascular Disease 02/06/22 documented as of this encounter
--- OUTSIDE RECORDS SUMMARY | 2024-02-23 17:18 | XMS_ITS | Encounter Summary ---
Author Organization [facility] Address [address] [place] [address] Care Team Providers Care Welding Machine Operator Electron Beam Name Role Phone Diya Gifford MD Primary Care Provide r Dariana Juarez MD Unavailable [phone] Reason for Visit * Reason Comments Follow-up Encounter Details Date Type Department Care Team (Late st Contact Info) Description 06/30/2023 14:10 EST Telemedicine [facility] Cancer Center Hematology & Oncology - [facility] [address] [place], [place] [phone] Jorge Lim MD [address] [place] [address], [address] [place] [address] Bleeding disorder (HCC-CMS) (Primary Dx) Social History [...] day after spinal injection 9 Tablet 1 06/30/2023 07/01/2023 documented in this encounter Progress Notes * Jorge Lim MD - 06/30/2023 1410 EST 06/30/2023 PATIENT: Marilin Allen Subjective: Patient returns in followup for possible bleeding disorder. Patient reports- Still with neck and shoulder pain Would very much like to get injections From original intake note: Marilin Allen is a 48 y.o. female who presents for further evaluation of a possible bleeding disorder. Her bleeding history is as follows: In the last 1-2 years has required neck injections every 3 months, the last two injections the proceduralist noted an increase in bleeding and has asked the patient to see hematology before further injections are done ( Also in the last about a year, had a loop recorder placed and had excess bleeding and bruising and heard the proceduralist say we have a bleeder She has no history of nosebleeds, excess bruising or hemarthrosis She had significant menorragia throughout her life with periods that lasted an entire month some times, had gushes of blood and went through multiple tampons and pads over a short time period, sometimes requiring additional towels to deal with the flow; this also kept her from going grocerty shopping, etc; she was placed on OCPs as a teenager to help control the bleeding; she had an ablation of the uterus after which she had no menses She has had multiple surgeries including tubal ligation approximately age 39 without bleeding, over39 surgeries for cleft palate (sometimes with blood clots afterwards but no transfusions required);bone graft right hip without excess bleeding; bilateral ear surgery without excess bleeding; carpeltunnel surgery which may have had excess bruising She had significant bleeding after giving to her two sons- no transfusion requirement but excess bleeding noted by MD and patient states it looked like a blood bath Family history of two sisters with mennoragia; sons have no excess bleeding Tattoos placed without excess bleeding Thinks she has A+ blood, does not know heritage SOCIAL HISTORY: nonsmoker, no alcohol use MEDICATIONS Current Outpatient Medications Medication Sig Dispense Refill amitriptyline (ELAVIL) 100 mg tablet 1 Tablet daily. cetirizine (ZYRTEC) 10 mg tablet Take 1 Tablet by mouth if needed. Reported on 07/08/2016 cyanocobalamin (VITAMIN B-12) 500 mcg tablet Take 1 Tablet by mouth daily. diclofenac sodium gel Apply topically 2 times daily. doxycycline (VIBRAMYCIN) 100 mg capsule Take by mouth daily. fexofenadine (ZACHARY) 60 mg tablet Take 1 Tablet by mouth 2 times daily. gabapentin (NEURONTIN) 400 mg capsule Take 2 Capsules by mouth daily. hydrOXYzine (VISTARIL) 25 mg capsule Take 1 Capsule by mouth 2 times daily. ibuprofen (MOTRIN) 600 mg tablet Take 1 Tablet by mouth every 6 hours as needed for Pain. Lactobacillus acidophilus (PROBIOTIC) 10 billion cell capsule Take by mouth daily. (Patient not taking: Reported on 01/28/2023) metoprolol XL (TOPROL-XL) 100 mg tablet Take 1 Tablet by mouth daily. omeprazole (PRILOSEC) 20 mg capsule Take 1 Capsule by mouth daily. oxycodone-acetaminophen (PERCOCET) 5-325 mg per tablet Take 2 Tabs by mouth every 8 hours as neededfor Pain. 24 Tab 0 SETLAKIN 0.15 mg-30 mcg (91) per tablet Take 1 Tablet by mouth daily. Sodium Fluoride 1.1 % cream Place onto teeth. traZODone (DESYREL) 50 mg tablet venlafaxine (EFFEXOR-XR) 150 mg XR capsule Take 75 mg by mouth daily. No current facility-administered medications for this visit. REVIEW OF SYSTEMS A 10 point ROS is negative except as indicated in the subjective portion of the note. PHYSICAL EXAM Zoom visit DATA AND LABORATORY REVIEW Latest Reference Range & Units 03/05/23 10:08 Pro Time 9.7 - 12.8 secs 10.5 I.N.R. 0.9 - 1.1 Ratio 0.9 PTT 26 - 37 secs 26 Thrombin Time 10.3 - 16.9 secs 12.4 Fibrinogen 171 - 384 mg/dL 369 COL/EPI Cartridge 94 - 193 secs 136 Factor 10 Assay 77 - 131 % 183 (H) Factor 11 Assay 65 - 150 % 163 (H) Factor 13 Antigen 57.1 - 168.5 % 129.5 Factor 2 Assay 79 - 131 % 151 (H) Factor 5 Assay 62 - 139 % 142 (H) Factor 7 Assay 50 - 129 % 204 (H) Factor 8 Assay 50 - 150 % 203 (H) Factor 9 Assay 65 - 150 % 205 (H) Von Willebrand Multimers normal VWF Activity 49 - 163 % 184 (H) VWF Antigen 50 - 185 % 228 (H) ASSESSMENT 48 yo woman with a history of significant menorragia and most recently increased bleeding noted with spinal injections with an ISTH BAT score of 5-6. There is some difficulty obtaining a reliable history of excess bleeding after procedures for Marilin and as she would like to have additional back injections we undertook a comprehensive work up whih has returned negative to date. A component of her m ore recent bleeding may certainly relate, in part, to medication use (with mild platelet inhibition) but she is not able to stop the medication due to her concomitant depression. We discussed the useof TXA and the risks vs benefits of same. She would like to proceed and I have indicated a plan below for future spinal injections and will modify same if additional information becomes available with the testing. PLAN Platelet EM, platelet receptor flow cytometry and fibrinolytic panel. If negative, move to genetic panel based on risk of going off antidepressant meds for platelet aggregation and secretion studies. Hemostasis Action Plan for spinal injections Avoid aspirin and NSAIDs for 14 days prior to and post procedure Take 1300 mg TXA morning of the procedure, repeat mid afternoon and prior to bedtime day of procedure; take 650 mg TXA tid post procedure day 1 3. Follow up with me in late spring or early summer 2023 I spent a total of 40 minutes on the date of this encounter meeting with the patient and reviewing documentation/coordinating care as described in the above note. There was no procedure performed at this visit. The concept of ???Telemedicine?? has been described to the patient. Patient has been informed of the anticipated benefits and possible risks. Patient understands the information provided regarding telemedicine, has had the opportunity to ask questions about this information, and all questions havebeen answered to patient???s satisfaction. Patient consents for the use of telemedicine in his/her medical care and authorizes the transmission of any relevant medical information to providers and their staff involved in patient???s medical or mental health care. TELEMEDICINE VIDEO VISIT Today's visit was provided through telemedicine video conferencing: I have reviewed the appropriateness of using video technology with the patient with regards to today's visit. The location of the patient : Home Patient location state: Visit Location State: [place] The location of the provider: Office Provider location state: Visit Location State: [place] The following people and their roles were present for today's visit: Appointment Provider: Jorge Lim MD Chris Elaine Holmes, MD Chris Elaine Holmes, MD Chris Elaine Holmes, MD documented in this encounter Plan of Treatment Upcoming Encounters Date Type Department Care Team (Late st Contact Info) Description 03/04/2024 11:30 EDT Office Visit [facility] Interventional Pain [address] [place], [place] [phone] Percy Molina MD [address] [place] [address] [place] [phone] 04/26/2024 9:15 EDT Office Visit [facility] Interventional Pain [address] [place], [place] [phone] Percy Molina MD [address] [place] [phone] 01/25/2026 12:00 EDT Office Visit [facility] Cancer Center Hematology & Oncology - [facility] [address] [place], [place] [phone] Jorge Lim MD [address] [place] [address], [facility] 2 [place] [address] documented as of this encounter Visit Diagnoses Diagnosis Bleeding disorder (HCC-CMS)- Primary Unspecified hemorrhagic conditions documented in this encounter Care Teams Welding Machine Operator Electron Beam Relationship Specialty Start Date End Date Diya Gifford MD [address] [place] [address] [address] [place], [place] [address] PCP - General 07/26/19 Dariana Juarez MD [address] [place] [address]- [address] [place] [address] Consulting Clinician Cardiovascular Disease 02/06/22 documented as of this encounter
--- OUTSIDE RECORDS SUMMARY | 2024-02-23 17:18 | XMS_ITS | Encounter Summary ---
Author Organization [facility] Address [address] [place] [address] Care Team Providers Care Student Finance Specialist Name Role Phone Diya Gifford MD Primary Care Provide r Dariana Juarez MD Unavailable [phone] Reason for Visit * Reason Onset Date Comments Follow-up 08/04/2023 Encounter Details Date Type Department Care Team (Late st Contact Info) Description 08/04/2023 Telephone [facility] Cancer Center Hematology & Oncology - [facility] [address] [place] [address] Missy Harris RN [address] [place] [address] Follow-up Social History Tobacco Use Types Packs/Day [...] Miscellaneous Notes * Telephone Encounter - Missy Harris, RN - 08/04/2023 1601 EST Spoke to Marilin and reminded her that Dr. Lim would like her to have some labs drawn. She said she will come Thursday 08/10 to get them drawn! documented in this encounter Plan of Treatment Upcoming Encounters Date Type Department Care Team (Late st Contact Info) Description 03/04/2024 11:30 EDT Office Visit [facility] Interventional Pain [address] [place] [address] Percy Molina MD [address] [place] [address] [place] [phone] 04/26/2024 9:15 EDT Office Visit [facility] Interventional Pain [address] [place] [address] Precy Molina MD [address] [place] [address] [place] [phone] 01/25/2026 12:00 EDT Office Visit [facility] Hematology & Oncology - [facility] [address] [place], [place] [phone] Jorge Lim MD 111 [facility], Level 2 [place] [phone] documented as of this encounter Visit Diagnoses Not on filedocumented in this encounter Care Teams Student Finance Specialist Relationship Specialty Start Date End Date Diya Gifford MD [address] [place] [address] [address] [place], [place] [address] PCP - General 07/26/19 Dariana Juarez MD [address] [place] [phone] Consulting Clinician Cardiovascular Disease 02/06/22 documented as of this encounter
--- OUTSIDE RECORDS SUMMARY | 2024-02-23 17:18 | XMS_ITS | Encounter Summary ---
Author Organization [facility] Address [address] [place] [address] Care Team Providers Care Gold Miner Name Role Phone Diya Gifford MD Primary Care Provide r Dariana Juarez MD Unavailable [phone] Encounter Details Date Type Department Care Team (Mary Contact Info) Description 08/01/2022 Orders Only [facility] Cardiology Clinic [address] [place] [address] Gwendolyn Martinez MA Social History Tobacco Use Types Packs/Day Years [...] Upcoming Encounters Date Type Department Care Team (Mary james Contact Info) Description 03/04/2024 11:30 EDT Office Visit [facility] Interventional Pain [address] [place], [place] [phone] Percy Molina MD [address] [phone] 04/26/2024 9:15 EDT Office Visit [facility] Interventional Pain [address] [place], [place] [phone] Percy Molina MD [address] [phone] 01/25/2026 12:00 EDT Office Visit [facility] Hematology & Oncology - [address] [phone] Jorge Lim MD [address] [place] [address] [address] [place] [phone] documented as of this encounter Visit Diagnoses Not on filedocumented in this encounter Care Teams Gold Miner Relationship Specialty Start Date End Date Diya Gifford MD [address] [place] [address] [address] [place], [place] [address] PCP - General 07/26/19 Dariana Juarez MD [address] [place] [address] [address] [place] [phone] Consulting Clinician Cardiovascular Disease 02/06/22 documented as of this encounter
--- OUTSIDE RECORDS SUMMARY | 2024-02-23 17:18 | XMS_ITS | Encounter Summary ---
Author Organization [facility] Address [address] [place] [address] Care Team Providers Care Executive Coach Name Role Phone Diya Gifford MD Primary Care Provide r Dariana Juarez MD Unavailable [phone] Encounter Details Date Type Department Care Team (Late st Contact Info) Description 01/28/2023 Orders Only [facility] Cardiology Clinic [address] [place] [address] RN Encounter for loop recorder check Social History Tobacco Use Types Packs/Day Years [...] Info) Description 03/04/2024 11:30 EDT Office Visit [facility] Interventional Pain [address] [place], [place] [phone] Percy Molina MD [address] [facility] [address] [place] [address] 04/26/2024 9:15 EDT Office Visit [facility] Interventional Pain [address] [place] [address] Percy Molina MD [address] [facility] [address] [place] [address] 01/25/2026 12:00 EDT Office Visit [facility] Hematology & Oncology - [facility] [address] [place], [place] [phone] Jorge Lim MD 111 [facility], Level [address] [place] [phone] documented as of this encounter Procedures Procedure Name Priority Date/Time Associated Diagnosis Comments CARDIAC IMPLANT CHECK - REMOTE MONITOR Routine 02/27/2023 14:34 EDT Encounter for loop recorder check documented in this encounter Results * CARDIAC IMPLANT CHECK - REMOTE - LOOP RECORDER (ILR) (02/27/2023 14:34 EDT) Anatomical Region Laterality Modality Device Narrative 03/10/2023 14:35 EDT I have reviewed the implantable loop recorder interrogation. ??I agree with the findings. No arrhythmia. See scanned document for details of remote download. Dano Victoria NP Procedure Note Dano Victoria NP - 03/10/2023 I have reviewed the implantable loop recorder interrogation. I agree withthe findings. No arrhythmia. See scanned document for details of remotedownload. Dano Victoria NP Dano Victoria DATA ENTRY REPRESENTATIVE CV IMPLANTABLE CARDI AC DEVICE documented in this encounter Visit Diagnoses Diagnosis Encounter for loop recorder check Fitting and adjustment of other cardiac device documented in this encounter Care Teams Executive Coach Relationship Specialty Start Date End Date Diya Gifford MD [address] [place] [address] [address] [place] [address] PCP - General 07/26/19 Dariana Juarez MD [address] [place] [address] [address] [place] [phone] Consulting Clinician Cardiovascular Disease 02/06/22 documented as of this encounter
--- OUTSIDE RECORDS SUMMARY | 2024-02-23 17:18 | XMS_ITS | Encounter Summary ---
Author Organization [facility] Address [address] [place] [address] Care Team Providers Care Lining Cementer Name Role Phone Diya Gifford MD Primary Care Provide r Dariana Juarez MD Unavailable [phone] Encounter Details Date Type Department Care Team (Latest Contact Info) Description 09/23/2023 Travel Social History Tobacco Use Types Packs/Day Years [...] Info) Description 03/04/2024 11:30 EDT Office Visit [facility] [address] [place] [address] Percy Molina MD [address] [facility] [address] [place] [address] 04/26/2024 9:15 EDT Office Visit [facility] [address] [place] [address] Percy Molina MD [address] [facility] [address] [place] [address] 01/25/2026 12:00 EDT Office Visit [facility] Hematology & Oncology - [facility] [address], [place] [id number] Jorge Lim MD [address] [facility], [address] [place] [phone] documented as of this encounter Visit Diagnoses Not on filedocumented in this encounter Care Teams Lining Cementer Relationship Specialty Start Date End Date Diya Gifford MD [address] [place] [id number] PCP - General 07/26/19 Dariana Juarez MD [address] [place] [address] [place] [phone] Consulting Clinician Cardiovascular Disease 02/06/22 documented as of this encounter
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
--- OUTSIDE RECORDS SUMMARY | 2024-02-23 17:18 | XMS_ITS | Encounter Summary ---
Author Organization [facility] Address [address] [place] [address] Care Team Providers Care Filtration Plant Mechanic Name Role Phone Diya Gifford MD Primary Care Provide r Dariana Juarez MD Unavailable [phone] Reason for Visit * Reason Comments New Patient Visit * Referral (Routine) - Receiving Office to Obtain Authorization Specialty Diagnoses / Procedures [facility]erred To Contact Hematology Diagnoses Encounter for screening for diseases of the blood and blood-forming organs and certain disorders involving the immune mechanism Diya Gifford MD [address] [place] [id number] [facility] Ep2 Hem/Onc [address] [place] [id number] Referral ID Status Reason Start Date Expiration Date Visits Requested Visits Authorized [id number] Receiving Office to Obtain Authorization 1 1 Encounter Details Date Type Department Care Team (Late st Contact Info) Description 03/05/2023 8:30 EDT Office Visit [facility] Hematology & Oncology - [address] [phone] Jorge Lim MD [address] [facility], [facility], Level [address] [place] [address] Bleeding disorder ([facility]) (Primary Dx) Social History Tobacco Use Types [...] Sign Reading Time Taken Comments Blood Pressure 135/74 03/05/2023 08 EDT Pulse 89 03/05/2023 08 EDT Temperature 36.6 ??C (97.8 ??F) 03/05/2023 08 EDT Respiratory Rate 16 03/05/2023 08 EDT Oxygen Saturation 98% 03/05/2023 08 EDT Inhaled Oxygen Concentration - - Weight 93.8 kg (206 lb 11.2 oz) 03/05/2023 08 EDT Height 152.5 cm (5' 0.04) 03/05/2023 08 EDT Body Mass Index 40.32 03/05/2023 08 EDT documented in this encounter Functional Status [...] as of this encounter Progress Notes * Jorge Lim MD - 03/05/2023 0830 EDT 03/05/2023 HEMATOLOGY NEW PATIENT VISIT PATIENT: Marilin Allen REFERRING PROVIDER: Diya Gifford* CHIEF COMPLAINT New Patient Visit HISTORY OF PRESENT ILLNESS Marilin Allen is a 48 y.o. female who presents for further evaluation of a possible bleeding disorder. Her bleeding history is as follows: In the last 1-2 years has required neck injections every 3 months, the last two injections the proceduralist noted an increase in bleeding and has asked the patient to see hematology before further injections are done (currently scheduled for March 16) Also in the last about a year, [...] has A+ blood, does not know heritage PAST MEDICAL HISTORY Past Medical History: Diagnosis Date ??? Cleft palate PAST SURGICAL HISTORY Surgical history as above FAMILY HISTORY Family History Problem Relation Age of Onset ??? *Other(comment) Father ??? Cancer Sister SOCIAL HISTORY Social History Socioeconomic History ??? Marital status: Tobacco Use ??? Smoking status: Never ??? Smokeless tobacco: Never Substance and Sexual Activity ??? Alcohol use: No MEDICATIONS Current Outpatient Medications Medication Sig Dispense Refill ??? amitriptyline (ELAVIL) 100 mg tablet 1 [...] 6 hours as needed for Pain. ??? Lactobacillus acidophilus (PROBIOTIC) 10 billion cell capsule Take by mouth daily. (Patient nottaking: Reported on 01/28/2023) ??? metoprolol XL (TOPROL-XL) 100 mg tablet Take 1 Tablet by mouth daily. ??? omeprazole (PRILOSEC) 20 mg capsule Take 1 Capsule by mouth daily. ??? oxycodone-acetaminophen (PERCOCET) 5-325 mg per tablet Take 2 Tabs by mouth every 8 hours as needed for Pain. 24 Tab 0 ??? SETLAKIN 0.15 mg-30 mcg (91) per tablet Take 1 Tablet by mouth daily. ??? Sodium Fluoride 1.1 % cream Place onto teeth. ??? traZODone (DESYREL) 50 mg tablet ??? venlafaxine (EFFEXOR-XR) 150 mg XR capsule Take 75 mg by mouth daily. No current facility-administered medications for this visit. ALLERGIES Allergies Allergen Reactions ??? Claritin [Loratadine] Other (See Comments) Feet and hand blisters ??? Erythromycin GI upset ??? Penicillins Hives Hives as a child, pt states she's had PCN since without problems. ??? Shellfish Containing Products ??? Sulfa (Sulfonamide Antibiotics) Nausea And Vomiting ??? Topamax [Topiramate] Other (See Comments) Visual disturbance ??? Tylenol-Codeine #3 [Acetaminophen-Codeine] Nausea And Vomiting REVIEW OF SYSTEMS A 10 point ROS is negative except as indicated in the subjective portion of the note. PHYSICAL EXAM Vitals: 03/05/23 0802 BP: 135/74 Pulse: 89 Resp: 16 Temp: 36.6 ??C (97.8 ??F) TempSrc: Skin SpO2: 98% Weight: 93.8 kg (206 lb 11.2 oz) Height: 152.5 cm (60.04) HEENT: Surgical scar for cleft palate noted EYES: No conjunctival pallor or scleral icterus. Lungs:no wheeze CV: regular rate and rhythm Abdomen: soft, ND Extremities:No lower extremity edema, bilateral lower extremities are symmetric. Skin: no rashes, bruising or petechiae. Tattoos noted Psych: normal affect Neuro: grossly nonfocal. DATA AND LABORATORY REVIEW Labs available from [facility] 9.6, INR 0.9; creatinine normal ASSESSMENT 48 yo woman with a history of significant menorragia and most recently increased bleeding noted with spinal injections with an ISTH BAT score of 5-6. There is some difficulty obtaining a reliable history of excess bleeding after procedures for Marilin and as she would like to have additional back injections, we will proceed with a comprehensive workup at this time. 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 We discussed the role of the [facility] hemophilia treatment center in her care. We discussed that about 50% of the time, we are able to put a name to the increased bleeding tendency and that we will work to develop a safe plan for future procedures. We briefly discussed the risk vs benefits of TXA use prior to procedures if there is no clear cause of her increased bleeding. I do notethat she has extreme depression off of her antidepressant medications and as they would need to be stopped for platelet aggregation and secretion studies, it would likely be safer for her to proceed t o genetic testing. I do note that the antidepressant medications can have an antiplatelet effect which can be contributing to her increased bleeding tendency however her long history of menorragia suggests there may be a congenital component as well. PLAN 1. Labs today as ordered 2. If labs normal, proceed to platelet EM, platelet receptor flow cytometry and fibrinolytic panel 3. If negative, move to genetic panel based on risk of going off antidepressant meds for platelet aggregation and secretion studies. I spent a total of 68 minutes on the date of this encounter meeting with the patient and reviewing documentation/coordinating care as described in the above note. There was no procedure performed at this visit. MD Jorge Mckeon MD documented in this encounter Plan of Treatment Upcoming Encounters Date Type Department Care Team (Late st Contact Info) Description 03/04/2024 11:30 EDT Office Visit [facility] Interventional Pain [address] [place], [place] [id number] Percy Molina MD [address] [facility] [address] [place] [address] 04/26/2024 9:15 EDT Office Visit [facility] Interventional Pain [address] [place] [address] Percy Molina MD [address] [facility] [address] [place] [address] 01/25/2026 12:00 EDT Office Visit [facility] Hematology & Oncology - [facility] [address], [place] [phone] Jorge Lim MD [address] [facility], [address] [place] [phone] documented as of this encounter Results * PLATELET FUNCTION ASSAY/ANALYSIS (03/05/2023 10:08 EDT) COL/EPI Cartridge 136 94 - 193 secs 03/05/2023 10:55 EDT [facility] Blood VENOUS BLOOD / Unknown Venipuncture / Unknown 03/05/2023 10:08 EDT 03/05/2023 10:13 EDT Narrative [facility] - 03/05/2023 10:55 EDT Platelet function results with closure times within or below ??the reference range are consistent with normal platelet function. Platelet function may be affected by a hematocrit less than 35%. Platelet function may be affected by platelet counts less than 150,000. Platelet function is affected by the presence of platelet clumps. Hemolysis: Free hemoglobin from lysis of red cells may affect platelet function due to reduction of hematocrit and release of ADP. Jorge Lim MD HEMATOLOGY & PF4 ORDERABLES Performing Organization Address City/[facility] Co de Phone Number [facility] [address] [place] [address] * (ABNORMAL) FACTOR 11 ASSAY (03/05/2023 10:08 EDT) Factor 11 Assay 163(H) 65 - 150 % 03/05/2023 12:30 EDT [facility] Blood VENOUS BLOOD / Unknown Venipuncture / Unknown 03/05/2023 10:08 EDT 03/05/2023 10:13 EDT Jorge Lim MD HEMATOLOGY & PF4 ORDERABLES Performing Organization Address [facility] Co de Phone Number [facility] [address] [place] [address] * (ABNORMAL) FACTOR 10 ASSAY (03/05/2023 10:08 EDT) Factor 10 Assay 183(H) 77 - 131 % 03/05/2023 12:30 EDT [facility] Blood VENOUS BLOOD / Unknown Venipuncture / Unknown 03/05/2023 10:08 EDT 03/05/2023 10:13 EDT Jorge Lim MD HEMATOLOGY & PF4 ORDERABLES Performing Organization Address [facility] Co de Phone Number [facility] [address] [place] [address] * (ABNORMAL) FACTOR 9 ASSAY (03/05/2023 10:08 EDT) Factor 9 Assay 205(H) 65 - 150 % 03/05/2023 12:30 EDT [facility] Blood VENOUS BLOOD / Unknown Venipuncture / Unknown 03/05/2023 10:08 EDT 03/05/2023 10:13 EDT Jorge Lim MD HEMATOLOGY & PF4 ORDERABLES Performing Organization Address City/[facility]/ZIP Co de Phone Number [facility] [address] [place] [address] * (ABNORMAL) FACTOR 7 ASSAY (03/05/2023 10:08 EDT) Factor 7 Assay 204(H) 50 - 129 % 03/05/2023 12:30 EDT [facility] Blood VENOUS BLOOD / Unknown Venipuncture / Unknown 03/05/2023 10:08 EDT 03/05/2023 10:13 EDT Jorge Lim MD HEMATOLOGY & PF4 ORDERABLES Performing Organization Address City/[facility]/ZIP Co de Phone Number [facility] [address] [place] [address] * (ABNORMAL) FACTOR 5 ASSAY (03/05/2023 10:08 EDT) Factor 5 Assay 142(H) 62 - 139 % 03/05/2023 12:30 EDT [facility] Blood VENOUS BLOOD / Unknown Venipuncture / Unknown 03/05/2023 10:08 EDT 03/05/2023 10:13 EDT Jorge Lim MD HEMATOLOGY & PF4 ORDERABLES Performing Organization Address City/[facility]/ZIP Co de Phone Number [facility] [address] [place] [address] * (ABNORMAL) FACTOR 2 ASSAY (03/05/2023 10:08 EDT) Factor 2 Assay 151(H) 79 - 131 % 03/05/2023 12:30 EDT [facility] Blood VENOUS BLOOD / Unknown Venipuncture / Unknown 03/05/2023 10:08 EDT 03/05/2023 10:13 EDT Jorge Lim MD HEMATOLOGY & PF4 ORDERABLES Performing Organization Address City/[facility]/ZIP Co de Phone Number [facility] [address] [place] [address] * FACTOR 13 ANTIGEN (03/05/2023 10:08 EDT) [facility] Factor 13 Antigen 129.5 57.1 - 168.5 % 03/05/2023 12:30 EDT [facility] Blood VENOUS BLOOD / Unknown Venipuncture / Unknown 03/05/2023 10:08 EDT 03/05/2023 10:13 EDT Jorge Lim MD HEMATOLOGY & PF4 ORDERABLES Performing Organization Address City/[facility] Co de Phone Number [facility] [address] [place] [address] * FIBRINOGEN (03/05/2023 10:08 EDT) [facility] Fibrinogen 369 171 - 384 mg/dL 03/05/2023 10:39 EDT [facility] Blood VENOUS BLOOD / Unknown Venipuncture / Unknown 03/05/2023 10:08 EDT 03/05/2023 10:13 EDT Jorge Lim MD HEMATOLOGY & PF4 ORDERABLES Performing Organization Address [facility] de Phone Number [facility] [address] [place] [address] * (ABNORMAL) COMPLETE BLOOD COUNT (03/05/2023 10:08 EDT) [facility] WBC 7.81 4.00 - 12.40 K/cmm 03/05/2023 10:30 EDT [facility] RBC 4.96 3.86 - 5.04 M/cmm 03/05/2023 10:30 EDT [facility] Hemoglobin 15.1 11.6 - 15.2 g/dL 03/05/2023 10:30 EDT [facility] HCT 45.1(H) 34.9 - 44.4 % 03/05/2023 10:30 EDT [facility] MCV 91 81 - 98 fL 03/05/2023 10:30 EDT [facility] MCH 30.4 26.7 - 33.3 pg 03/05/2023 10:30 EDT [facility] MCHC 33.5 32.1 - 35.9 g/dL 03/05/2023 10:30 EDT [facility] RDW-CV 13.1 <14.7 % 03/05/2023 10:30 EDT [facility] RDW-SD 43.1 <50.4 fl 03/05/2023 10:30 EDT [facility] PLT 319 141 - 377 K/cmm 03/05/2023 10:30 EDT [facility] MPV 10.2 9.5 - 12.7 fL 03/05/2023 10:30 EDT [facility] Blood VENOUS BLOOD / Unknown Venipuncture / Unknown 03/05/2023 10:08 EDT 03/05/2023 10:21 EDT Jorge Lim MD HEMATOLOGY & PF4 ORDERABLES Performing Organization Address [facility] de Phone Number [facility] [address] [place] [address] * THROMBIN TIME (03/05/2023 10:08 EDT) Thrombin Time 12.4 10.3 - 16.9 secs 03/05/2023 12:30 EDT [facility] Blood VENOUS BLOOD / Unknown Venipuncture / Unknown 03/05/2023 10:08 EDT 03/05/2023 10:13 EDT Narrative [facility] - 03/05/2023 12:30 EDT Results will be prolonged in the presence of Heparin, direct thrombin inhibitors such as Dabigatran (Pradaxa), Hirudin (Refludan) and Argatroban (Novastan). Jorge Lim MD HEMATOLOGY & PF4 ORDERABLES Performing Organization Address City/[facility] Co de Phone Number [facility] [address] [place] [address] * PTT (03/05/2023 10:08 EDT) PTT 26 26 - 37 secs 03/05/2023 10:41 EDT [facility] Blood VENOUS BLOOD / Unknown Venipuncture / Unknown 03/05/2023 10:08 EDT 03/05/2023 10:13 EDT Jorge Lim MD HEMATOLOGY & PF4 ORDERABLES Performing Organization Address [facility] de Phone Number [facility] [address] [place] [address] * PROTIME (03/05/2023 10:08 EDT) I.N.R. 0.9 0.9 - 1.1 Ratio 03/05/2023 10:39 EDT [facility] Pro Time 10.5 9.7 - 12.8 secs 03/05/2023 10:39 EDT [facility] Blood VENOUS BLOOD / Unknown Venipuncture / Unknown 03/05/2023 10:08 EDT 03/05/2023 10:13 EDT Narrative [facility] - 03/05/2023 10:39 EDT Moderate Intensity Coumadin INR = 2.0-3.0 Adjustments in anticoagulant therapy dose should be based on the INR and NOT on the Protime. Jorge Lim MD HEMATOLOGY & PF4 ORDERABLES Performing Organization Address [facility] Co de Phone Number [facility] [address] [place] [phone] documented in this encounter Visit Diagnoses Diagnosis Bleeding disorder ([facility])- Primary Unspecified hemorrhagic conditions documented in this encounter Discontinued Medications Medication Sig Discontinue Reason Start Date End Da te buPROPion (WELLBUTRIN SR) 150 mg SR tablet Take 150 mg by mouth 2 times daily. 07/27/2021 03/05/2023 documented as of this encounter Orders Lab Orders Without Results Count Last Ordered D ate First Ordered Date FACTOR 8 ASSAY 1 03/05/2023 documented in this encounter Care Teams Filtration Plant Mechanic Relationship Specialty Start Date End Date Diya Gifford MD [address] [address] PCP - General 07/26/19 Dariana Juarez MD [address] [place] [phone] Consulting Clinician Cardiovascular Disease 02/06/22 documented as of this encounter
--- OUTSIDE RECORDS SUMMARY | 2024-02-23 17:18 | XMS_ITS | Referral Summary ---
Author Organization [facility] Address [address] [place] [address] Care Team Providers Care Technical Solution Architect Name Role Phone Diya Gifford MD Primary Care Provide r Dariana Juarez MD Unavailable [phone] Encounters Date Type Department Care Team Description 02/23/2024 Lab Requisition [facility] Pathology & Laboratory Medicine - [facility] [address] [place] [address] Outr Resulting Lab, Provider 01/15/2024 11:15 EDT - 01/15/2024 23:59 EDT Hospital Encounter [facility] Xray [address] [place] [address] Discharge Disposition: Home or Self Care 01/15/2024 11:15 EDT Office Visit [facility] Interventional Pain [address] [place] [address] Percy Molina MD Cervical radiculopathy (Primary Dx) 01/15/2024 11:15 EDT Office Visit [facility] Interventional Pain [address] [place] [address] Hailee Caceres PA-C Cervical radiculopathy (Primary Dx) from Last 3 Months Allergies Active Allergy Reactions Criticality Noted Date Comments Loratadine Other (See Comments) 12/06/2020 Feet and hand blisters Erythromycin GI upset 12/06/2020 Penicillins Hives 07/29/2010 Hives as a child, pt states she's had PCN since without problems. Shellfish Containing Products 07/29/2010 Sulfa (Sulfonamide Antibiotics) Nausea And Vomiting 12/06/2020 Topiramate Other (See Comments) 12/06/2020 Visual disturbance Acetaminophen-Codeine Nausea And Vomiting 12/06 Medications Medication Sig Dispensed Refills Start Date End Date Status gabapentin (NEURONTIN) 400 mg capsule Take 2 Capsules by mouth daily. 07/29/2010 Active oxycodone-acetaminoph en (PERCOCET) 5-325 mg per tablet Take 2 Tabs by mouth every 8 hours as needed for Pain. 24 Tab 0 07/29/2010 Active venlafaxine (EFFEXOR-XR) 150 mg XR capsule Take 75 mg by mouth daily. Active cetirizine (ZYRTEC) 10 mg tablet Take 1 Tablet by mouth if needed. Reported on 07/08/2016 Active omeprazole (PRILOSEC) 20 mg capsule Take 1 Capsule by mouth daily. Active metoprolol XL (TOPROL-XL) 100 mg tablet Take 1 Tablet by mouth daily. Active ibuprofen (MOTRIN) 600 mg tablet Take 1 Tablet by mouth every 6 hours as needed for Pain. Active fexofenadine (ZACHARY) 60 mg tablet Take 1 Tablet by mouth 2 times daily. Active hydrOXYzine (VISTARIL) 25 mg capsule Take 1 Capsule by mouth 2 times daily. Active Sodium Fluoride 1.1 % cream Place onto teeth. Active diclofenac sodium gel Apply topically 2 times daily. Active Lactobacillus acidophilus (PROBIOTIC) 10 billion cell capsule Take by mouth daily. Active traZODone (DESYREL) 50 mg tablet 10/04/2021 Active doxycycline (VIBRAMYCIN) 100 mg capsule Take by mouth daily. 10/09/2021 Active SETLAKIN 0.15 mg-30 mcg (91) per tablet Take 1 Tablet by mouth daily. 07/30/2021 Active amitriptyline (ELAVIL) 100 mg tablet 1 Tablet daily. 09/19/2021 Active cyanocobalamin (VITAMIN B-12) 500 mcg tablet Take 1 Tablet by mouth daily. Active zolpidem (AMBIEN) 5 mg tablet Take 1 Tablet by mouth at bedtime. 10/10/2023 Active tranexamic acid 650 mg tablet Take 2 tablets three times a day on day of spinal injection; take 1 tablet 3 times a day on day after spinal injection 9 Tablet 5 01/05/2024 Active Active Problems Patient Care Coordination No te Formatting of this note migh t be different from the original. 12/04/21- [facility]A (PERM TO SPEAK) [facility]TA [facility] SHANA HESTER (SONS) Problem Noted Date Diagnosed Date Obesity 12/06/2020 Hypertension 12/06/2020 History of Lyme disease 12/06/2020 Cystic acne 12/06/2020 Fatty liver disease, nonalcoholic 12/06/2020 Stress 12/06/2020 Pharyngitis, acute 12/06/2020 Persistent insomnia 12/06/2020 Major depression, recurrent (HCC-CMS) 12/06/2020 Anxiety 12/06/2020 Complication of bone graft 12/06/2020 Headache 12/06/2020 Ulnar nerve entrapment at elbow, left 12/06/2020 Chronic left shoulder pain 12/06/2020 Facial pain 12/06/2020 Chronic pain 12/06/2020 PTSD (post-traumatic stress disorder) 12/06/2020 Bilateral lower extremity edema 12/06/2020 Chronic diarrhea 12/06/2020 Seasonal allergic rhinitis 12/06/2020 Skin tag 12/06/2020 Carpal tunnel syndrome of left wrist 12/06/2020 Numbness and tingling in left arm 12/06/2020 Skin lesion of face 12/06/2020 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 Dysfunction of right eustachian tube 04/24/2016 Unilateral complete cleft palate with cleft lip 02/05/2016 Refractory obstruction of nasal airway 6 Syncope Social History Tobacco Use Types Packs/Day Years Used Date Smoking Tobacco: Never Smokeless Tobacco: Never Tobacco Cessation:Counseling Given: Not Answered Alcohol Use Standard Drinks/Week Comments No 0 (1 standard drink = 0.6 oz pur e alcohol) Interpersonal Safety Answer Date Record ed Physically Hurt Never 01/29/2020 Verbally Threaten Not on file 01/29/2020 Sex and Gender Information Value Date Recorded Sex Assigned at Female 09/21/2023 8:38 EDT Gender Identity Female 06/08/2019 10:16 EST Sexual Orientation Not on file Last Filed Vital Signs Vital Sign Reading Time Taken Comments Blood Pressure 169/89 01/15/2024 1208 EDT Pulse 80 01/15/2024 1208 EDT Temperature 36.5 ??C (97.7 ??F) 10/26/2023 0812 EDT Respiratory Rate 18 01/15/2024 1208 EDT Oxygen Saturation 100% 01/15/2024 1122 EDT Inhaled Oxygen Concentration - - Weight 85.1 kg (187 lb 9.6 oz) 09/23/2023 0649 E DT Height 152.4 cm (5') 09/23/2023 0649 EDT Body Mass Index 36.64 09/23/2023 0649 EDT Functional Status Functional Status Response Date of [...] concentrating, remembering, or making decisions? Yes 03/05/2023 Plan of Treatment Upcoming Encounters Date Type Department Care Team (Late st Contact Info) Description 03/04/2024 11:30 EDT Office Visit [facility] Interventional Pain [address] [place] [address] Percy Molina MD [address] [place] [phone] 04/26/2024 9:15 EDT Office Visit [facility] Inter[facility] Pain [address] [place] [address] Percy Molina MD [address] [place] [phone] 01/25/2026 12:00 EDT Office Visit [facility] Hematology & Oncology - [address] [address] Jorge Lim MD [address] [place] [address] [address] [place] [phone] Medical Devices Implanted Type Area Parking Manager Device Identifier Shelf Expiration Date Model / Serial / Lot Bone Bone Right: Hip Dental Dental Bilateral: Mouth Explanted Type Area Parking Manager Device Identifier Shelf Expiration Date Model / Serial / Lot System Reveal Linq Ii - [id number] Implanted:Qty: 1 on 05/08/2022 by Seferino Chambers MD at [facility] Explanted:Qty: 1 on 09/23/2023 by Seferino Chambers MD Pacemaker N/A: Chest [employer] 07/09/2023 [id number] / [id number] / Procedures Procedure Name Priority Date/Time Associated Diagnosis Comments PAIN [facility]IC [place] CERVICAL INJECTION Routine 01/15/2024 15:39 EDT HEPATITIS C AB W REFLEX TO HCV RNA BY PCR Routine 12/16/2021 11:00 EDT from Last 3 Months or Most Recently Relevant to Health Maintenance Results * PAIN CLINIC FL CERVICAL INJECTION (01/15/2024 15:39 EDT) Narrative 01/18/2024 15:40 EDT This is a non-reportable exam. Percy Molina MD IMG OTHER IMAGING OR DERABLES * HEPATITIS C AB W REFLEX TO HCV RNA BY PCR (12/16/2021 11:00 EDT) Hep C Antibody Negative Negative 12/17/2021 10:10 EDT [facility] Blood VENOUS BLOOD / Unknown 12/16/2021 11:00 EDT 12/16/2021 21:15 EDT Provider Outr Resulting Lab CHEMISTRY & BLOOD GAS ORDERABLES [facility] [address] [place] [address] from Last 3 Months or Most Recently Relevant to Health Maintenance Advance Directives For more information, please contact: [phone] * Full Code (Latest Code Status on File) Date Activated Date Inactivated Comments 09/23/2023 6:58 09/23/2023 10:57 Question Answer Comments When the patient has NO PULSE: Full Code / CPR Who Made the Decision? Default/Not Discussed * Full Code Date Activated Date Inactivated Comments 05/08/2022 13:05 05/09/2022 6:05 Question Answer Comments When the patient has NO PULSE: Full Code / CPR Who Made the Decision? Default/Not Discussed Care Teams Technical Solution Architect Relationship Specialty Start Date End Date Diya Gifford MD [address] [facility] [address] [place] [address] PCP - General 07/26/19 Dariana Juarez MD [address] [place] [address] [address] [place] [phone] Consulting Clinician Cardiovascular Disease 02/06/22
--- OUTSIDE RECORDS SUMMARY | 2024-02-23 17:18 | XMS_ITS | Encounter Summary ---
Author Organization [facility] Address [address] [place] [address] Care Team Providers Care Club Manager Name Role Phone Diya Gifford MD Primary Care Provide r Dariana Juarez MD Unavailable [phone] Reason for Visit * Auth/Cert (Routine) Specialty Diagnoses / Procedures Referred By [facility] Referred To Contact Diagnoses Syncope, unspecified syncope type Syncope, unspecified syncope type [R55] Procedures MD REMOVAL SUBCUTANEOUS CARDIAC RHYTHM MONITOR REMOVAL, CARDIAC RHYTHM MONITORING DEVICE, SUBCUTANEOUS Referral ID Status Reason Start Date Expiration Date Visits Re quested Visits Authorized [id number] 1 1 Encounter Details Date Type Department Care Team (Latest Contact Info) Description 09/23/2023 6:02 EDT - 09/23/2023 8:57 EDT Hospital Encounter [facility] Operating Room [address] [place] [id number] Seferino Chambers MD [address] [place] [address] [address] [place] [phone] Syncope, unspecified syncope type (Primary Dx) Discharge Disposition: Home or Self Care Social [...] Sign Reading Time Taken Comments Blood Pressure 157/91 09/23/2023 0855 EDT Pulse - - Temperature 36.9 ??C (98.4 ??F) 09/23/2023 0838 EDT Respiratory Rate 16 09/23/2023 0649 EDT Oxygen Saturation 100% 09/23/2023 0839 EDT Inhaled Oxygen Concentration - - Weight 85.1 kg (187 lb 9.6 oz) 09/23/2023 0649 E DT Height 152.4 cm (5') 09/23/2023 0649 EDT Body Mass Index 36.64 09/23/2023 0649 EDT documented in this encounter Functional Status [...] Yes 03/05/2023 documented as of this encounter Discharge Instructions * Discharge Instructions* Seferino Chambers MD - 09/23/2023 8:37 EDT Images from the original note were not included. Discharge Instructions for Patients with athletic monitor explants Wound Care: If derma-minor was used, do NOT attempt to remove it. It will disappear in 3-4 weeks. You will NOT have a dressing over the derma-minor. Do not apply one. You may shower the next day. Call your physician or nurse if: You develop drainage, redness or swelling at the incision site. You develop increased pain or bruising over the incision site and it doesn't resolve in 2 days. You develop a fever. Activity: You can resume your normal activities as tolerated, unless you have been instructed otherwise. No vigorous activity for 2 weeks. Avoid rough contact with wound. Appointments: You will be called for a wound check in 8-10 days. documented in this encounter Medications at Time of Discharge [...] onto teeth. traZODone (DESYREL) 50 mg tablet 10/04/2021 venlafaxine (EFFEXOR-XR) 150 mg XR capsule Take 75 mg by mouth daily. tranexamic acid 650 mg tablet Take 2 tablets three times a day on day of spinal injection; take 1 tablet 3 times a day on day after spinal injection 9 Tablet 1 07/01/2023 01/05/2024 documented as of this encounter Discharge Disposition Disposition Code Departure Means Destination Comment s Home or Self Care Walk-out Home documented in this encounter OR Notes * OR Surgeon - Seferino Chambers MD - 09/23/2023 0857 EDT REMOVAL, CARDIAC RHYTHM MONITORING DEVICE, SUBCUTANEOUS Operative Note Date: 09/23/2023 [place] [facility] [place] Marilin [place], : 1975, Diagnosis Pre-Op Diagnosis Codes: * Syncope, unspecified syncope type [R55] Post-op Diagnosis * Syncope, unspecified syncope type [R55] Procedures * REMOVAL, CARDIAC RHYTHM MONITORING DEVICE, SUBCUTANEOUS Surgeons * Seferino Chambers MD - Primary Procedure Summary Anesthesia: Local (Nurse-Monitored) ASA: ASA status not filed in the log. Estimated Blood Loss: No Blood Loss Documented Total IV Fluids: 0 mL LDAs: Full Thickness 08/01/16 Surgical Inner Nose (Active) Full Thickness 08/01/16 Surgical Left Ear (Active) Wound 05/08/22 Incision Chest (Active) Wound 09/23/23 Incision Chest (Active) Staff: Payroll Examiner: Poly Khan RN Relief Payroll Examiner: Rinku Yost RN Scrub Person: Sandi Harry Indications: Marilin [place] is an 48 y.o. female who is having surgery for Syncope, unspecified syncope type [R55] Procedure Details: The patient was seen in the preoperative area. The risks, benefits, complications, treatment options, non-operative alternatives, expected recovery and outcomes were discussed with the patient. The possibilities of reaction to medication, pulmonary aspiration, injury to surrounding structures, bleeding, recurrent infection, the need for additional procedures, failure to diagnose a condition, and creating a complication requiring transfusion or operation were discussed with the patient. The patient concurred with the proposed plan, giving informed consent. The site of surgery was properly noted/marked if necessary per policy. The patient has been actively warmed in preoperative area. Preopera tive antibiotics are not indicated. Venous thrombosis prophylaxis are not indicated. Findings: ICM explant without problems. Procedure in detail: The patient was brought to the operating room in a fasting state and informed consent was obtained. A timeout was performed and the patient was prepped and draped in the usual sterile manner. The left parasternal region was locally anesthetized and an incision was made through the previous incision scar. A very dense scar capsule was found. Using blunt and sharp dissection, th e device (Only-apartments Reveal LINQII) was accessed without problems and explanted. Manual pressure washeld for 5 minutes for hemostasis. The incision was then closed with a single horizontal suture using 4-0 Biosyn suture material. The skin was then closed with Dermabond skin glue. Summary: Successful explantation of a [employer] Reveal LINQ implanted cardiac nurse practitioner. CPT 70688. Complications: None; patient tolerated the procedure well. Disposition: PACU - hemodynamically stable. Condition: stable Specimens:None Implants: none Seferino Chambers MD documented in this encounter Miscellaneous Notes * Brief Op Note - Seferino Chambers MD - 09/23/2023 0834 EDT Date: 09/23/2023 [place] [facility] [place]: Marilin [place], : 1975, Diagnosis Pre-Op Diagnosis Codes: * Syncope, unspecified syncope type [R55] Post-op Diagnosis * Syncope, unspecified syncope type [R55] Procedures * REMOVAL, CARDIAC RHYTHM MONITORING DEVICE, SUBCUTANEOUS Surgeons * Seferino Chambers MD - Primary Procedure Summary Anesthesia: Local (Nurse-Monitored) ASA: ASA status not filed in the log. Estimated Blood Loss: No Blood Loss Documented Total IV Fluids: 0 mL LDAs: Full Thickness 08/01/16 Surgical Inner Nose (Active) Full Thickness 08/01/16 Surgical Left Ear (Active) Wound 05/08/22 Incision Chest (Active) Wound 09/23/23 Incision Chest (Active) Staff: Payroll Examiner: Poly Khan RN Scrub Person: Sandi Harry Indications: Marilin [place] is an 48 y.o. female who is having surgery for Syncope, unspecified syncope type [R55] Findings: Complete and intact removal of a Reveal LINQ2 ICM. Complications: None; patient tolerated the procedure well. Disposition: PACU - hemodynamically stable. Condition: stable Specimens Collected: No specimens collected during this procedure. Attending Attestation: I performed the procedure Seferino Chambers MD documented in this encounter Plan of Treatment Upcoming Encounters Date Type Department Care Team (Late st Contact Info) Description 03/04/2024 11:30 EDT Office Visit [facility] Interventional Pain [address] [place], [place] [phone] Percy Molina MD [address] [facility] [address] [place] [phone] 04/26/2024 9:15 EDT Office Visit [facility] Interventional Pain [address] [place] [address] Percy Molina MD [address] [facility] [address] [place] [phone] 01/25/2026 12:00 EDT Office Visit [facility] Hematology & Oncology - [address] [phone] Jorge Lim MD [address] [facility] [address] [place] [phone] documented as of this encounter Procedures Procedure Name Priority Date/Time Associated Diagnosis Comments REMOVAL, CARDIAC RHYTHM MONITORING DEVICE, SUBCUTANEOUS 09/23/2023 7:46 EDT Syncope, unspecified syncope type Special Needs 08/17- contacted Only-apartments documented in this encounter Visit Diagnoses Diagnosis Syncope- Primary Syncope and collapse Syncope, unspecified syncope type documented in this encounter Admitting Diagnoses Diagnosis Syncope Syncope and collapse documented in this encounter Administered Medications Inactive Administered Medications - up to 3 most recent administrations Medication Order MAR Action Action Date Dose Rate Site chlorhexidine gluconate 2 % cloth 1 Each 1 Each, topical, PRE-OP MULTIPLE, Starting on Thu09/23/23 at 0658, Until Thu09/23/23 at 1057, Other, Routine, Preprocedure documented in this encounter Active and Recently Administered Medications Times are shown in EDT. PRN Medication Order 09/21/2023 09/22/2023 09/23/2023 BUPivacaine (PF) (MARCAINE) 0.5% 30 mL, lidocaine (PF) 10 mg/mL (1 %) 30 mL, sodium bicarbonate 8.4 % 3 mL (CANCELED) PRN, Starting on Thu09/23/23 at 0815, Until Thu09/23/23 at 0832, Intraprocedure 0815 (Given - Provid er: Seferino Chambers MD) chlorhexidine gluconate 2 % cloth 1 Each 1 Each, topical, PRE-OP MULTIPLE, Starting on Thu09/23/23 at 0658, Until Thu09/23/23 at 1057, Other, Routine, Preprocedure documented in this encounter Orders Medications Ordered That Dany ht Not Have Been Administered Count Last Ordered Date First Ordered Date BUPivacaine (PF) (MARCAINE) 0.5% 30 mL, lidocaine (PF) 10 mg/mL (1 %) 30 mL, sodium bicarbonate 8.4 % 3 mL 1 09/23/2023 chlorhexidine gluconate 2 % cloth 1 Each 1 09/23/2023 Discharge Count Last Ordered Date First Orde red Date DISCHARGE PATIENT 1 09/23/2023 documented in this encounter Care Teams Club Manager Relationship Specialty Start Date End Date Diya Gifford MD [address] [place] [address] [address] [place] [address] PCP - General 07/26/19 Dariana Juarez MD [address] [place] [address] [address] [place] [phone] Consulting Clinician Cardiovascular Disease 02/06/22 documented as of this encounter
--- OUTSIDE RECORDS SUMMARY | 2024-02-23 17:18 | XMS_ITS | Encounter Summary ---
Author Organization [facility] Address [address] [place] [address] Care Team Providers Care Telephonic Nurse Name Role Phone Diya Gifford MD Primary Care Provide r Dariana Juarez MD Unavailable [phone] Encounter Details Date Type Department Care Team (Late st Contact Info) Description 03/05/2023 9:45 EDT Phlebotomy Only [facility] ED Center 2 Phlebotomy [address], [place] [id number] Extrusion Manager, [facility] Phlebotomy Bleeding disorder ([facility]) Social History Tobacco Use Types Packs/Day Years [...] 03/04/2024 11:30 EDT Office Visit [facility] Interventional Pain [address] [place], [place] [phone] Percy Molina MD [address] [facility] [address] [place] [address] 04/26/2024 9:15 EDT Office Visit [facility] Interventional Pain [address] [place] [address] Percy Molina MD [address] [facility] [address] [place] [address] 01/25/2026 12:00 EDT Office Visit [facility] Hematology & Oncology - [facility] [address], [place] [phone] Jorge Lim MD [address] [facility], [address] [place] [phone] documented as of this encounter Procedures Procedure Name Priority Date/Time Associated Diagnosis Comments VWF MULTIMERS, PLASMA Routine 03/05/2023 10:08 EDT Bleeding disorder ([facility]) COAG SPIN AND FREEZE Routine 03/05/2023 10:08 EDT Bleeding disorder ([facility]) VON WILLEBRAND FACTOR ACTIVITY Routine 03/05/2023 10:08 EDT Bleeding disorder ([facility]) COAG SPIN AND FREEZE Routine 03/05/2023 10:08 EDT Bleeding disorder ([facility]) FACTOR 10 ASSAY Routine 03/05/2023 10:08 EDT Bleeding disorder ([facility]) FACTOR 13 ANTIGEN Routine 03/05/2023 10: 08 EDT Bleeding disorder (HCC-CMS) VON WILLEBRAND FACTOR MULTIMER PANEL Routine 03/05/2023 10:08 EDT Bleeding disorder (HCC-CMS) PTT Routine 03/05/2023 10:08 EDT Bleeding disorder (HCC-CMS) THROMBIN TIME Routine 03/05/2023 10:08 EDT Bleeding disorder (HCC-CMS) PROTIME Routine 03/05/2023 10:08 EDT Bleeding disorder (HCC-CMS) PLATELET FUNCTION ASSAY/ANALYSIS Routine 03/05/2023 10:08 EDT Bleeding disorder (HCC-CMS) FIBRINOGEN Routine 03/05/2023 10:08 EDT Bleeding disorder (HCC-CMS) FACTOR 11 ASSAY Routine 03/05/2023 10:08 EDT Bleeding disorder (HCC-CMS) FACTOR 9 ASSAY Routine 03/05/2023 10:08 EDT Bleeding disorder (HCC-CMS) VWF ANTIGEN Routine 03/05/2023 10:08 EDT Bleeding disorder (HCC-CMS) FACTOR 8 ASSAY Routine 03/05/2023 10:08 EDT Bleeding disorder (HCC-CMS) FACTOR 7 ASSAY Routine 03/05/2023 10:08 EDT Bleeding disorder (HCC-CMS) FACTOR 5 ASSAY Routine 03/05/2023 10:08 EDT Bleeding disorder (HCC-CMS) FACTOR 2 ASSAY Routine 03/05/2023 10:08 EDT Bleeding disorder (HCC-CMS) COMPLETE BLOOD COUNT Routine 03/05/2023 10:08 EDT Bleeding disorder (HCC-CMS) documented in this encounter Results * COAG SPIN AND FREEZE (03/05/2023 10:08 EDT) Hold Hold 03/05/2023 10:22 EDT [facility] Blood VENOUS BLOOD / Unknown Venipuncture / Unknown 03/05/2023 10:08 EDT 03/05/2023 10:13 EDT Jorge Lim MD HEMATOLOGY & PF4 ORDERABLES Performing Organization Address City/[facility] Co de Phone Number [facility] [address] [place] [address] * (ABNORMAL) FACTOR 8 ASSAY (03/05/2023 10:08 EDT) Pathologist [facility] Factor 8 Assay 203(H) 50 - 150 % 03/05/2023 12:30 EDT [facility] Blood VENOUS BLOOD / Unknown Venipuncture / Unknown 03/05/2023 10:08 EDT 03/05/2023 10:13 EDT Jorge Lim MD HEMATOLOGY & PF4 ORDERABLES Performing Organization Address [facility] Co de Phone Number [facility] [address] [place] [address] * (ABNORMAL) VON WILLEBRAND FACTOR ACTIVITY (03/05/2023 10:08 EDT) Pathologist [facility] VWF Activity 184(H) 49 - 163 % 03/05/2023 12:30 EDT [facility] Comment:Rheumatoid factor le vels greater than 200 IU/ml may lead to overestimation of the vWF activity level. TYPE O blood group may have lower ranges. VWF is an acute-phase reactant and stress, and other situations affect its plasma concentration Therefore it might be advisable to repeat the analysis from another blood sample obtained on a different day. Blood VENOUS BLOOD / Unknown Venipuncture / Unknown 03/05/2023 10:08 EDT 03/05/2023 10:13 EDT Jorge Lim MD HEMATOLOGY & PF4 ORDERABLES Performing Organization Address [facility] Co de Phone Number [facility] [address] [place] [address] * (ABNORMAL) VWF ANTIGEN (03/05/2023 10:08 EDT) VWF Antigen 228(H) 50 - 185 % 03/05/2023 12:30 EDT [facility] Comment:The presence of Rheu matoid factor may produce an overestimation of the test result. TYPE O blood group may have lower ranges. VWF is an acute-phase reactant and stress, and other situations affect its plasma concentration. Therefore it might be advisable to repeat the analysis from another blood sample obtained on a different day. Blood VENOUS BLOOD / Unknown Venipuncture / Unknown 03/05/2023 10:08 EDT 03/05/2023 10:13 EDT Jorge Lim MD HEMATOLOGY & PF4 ORDERABLES Performing Organization Address [facility] de Phone Number [facility] [address] [place] [address] * VWF MULTIMERS, PLASMA (03/05/2023 10:08 EDT) Pathologist [facility] von Willibrand Factor Multimer, P See interpretation 03/13/2023 12:06 EDT [facility] VWF Multimer Interpretation SEE NOTE 03/13/2023 12:06 EDT [facility] Comment: The distribution of plasma von Willebrand factor (VWF) multimers is normal. ADDITIONAL INFORMATION This test was developed and its performance characteristics determined by [facility] in a manner consistent with CLIA requirements. This test has not been cleared or approved by the U.S. Food and Drug Administration. Test Performed by: [address] [address] Diffusion Operator: Liban Aly M.D. Ph.D.; CLIA# [id number] Blood VENOUS BLOOD / Unknown Venipuncture / Unknown 03/05/2023 10:08 EDT 03/05/2023 10:13 EDT Jorge Lim MD HEMATOLOGY & PF4 ORDERABLES [facility] [address] [place] [address] * PLATELET FUNCTION ASSAY/ANALYSIS (03/05/2023 10:08 EDT) [facility] COL/EPI Cartridge 136 94 - 193 secs 03/05/2023 10:55 EDT [facility] Blood VENOUS BLOOD / Unknown Venipuncture / Unknown 03/05/2023 10:08 EDT 03/05/2023 10:13 EDT Narrative [facility] - 03/05/2023 10:55 EDT Platelet [...] HEMATOLOGY & PF4 ORDERABLES Performing Organization Address City/[facility]/ZIP Co de Phone Number [facility] [address] [place] [address] * (ABNORMAL) FACTOR 11 ASSAY (03/05/2023 10:08 EDT) [facility] Factor 11 Assay 163(H) 65 - 150 % 03/05/2023 12:30 EDT [facility] Blood VENOUS BLOOD / Unknown Venipuncture / Unknown 03/05/2023 10:08 EDT 03/05/2023 10:13 EDT Jorge Lim MD HEMATOLOGY & PF4 ORDERABLES [facility] [address] [place] [address] * (ABNORMAL) FACTOR 10 ASSAY (03/05/2023 10:08 EDT) Factor 10 Assay 183(H) 77 - 131 % 03/05/2023 12:30 EDT [facility] Blood VENOUS BLOOD / Unknown Venipuncture / Unknown 03/05/2023 10:08 EDT 03/05/2023 10:13 EDT Jorge Lim MD HEMATOLOGY & PF4 ORDERABLES Performing Organization Address City/[facility] Co de Phone Number [facility] [address] [place] [address] * (ABNORMAL) FACTOR 9 ASSAY (03/05/2023 10:08 EDT) Factor 9 Assay 205(H) 65 - 150 % 03/05/2023 12:30 EDT [facility] Blood VENOUS BLOOD / Unknown Venipuncture / Unknown 03/05/2023 10:08 EDT 03/05/2023 10:13 EDT Jorge Lim MD HEMATOLOGY & PF4 ORDERABLES Performing Organization Address [facility] Co de Phone Number [facility] [address] [place] [address] * (ABNORMAL) FACTOR 7 ASSAY (03/05/2023 10:08 EDT) Factor 7 Assay 204(H) 50 - 129 % 03/05/2023 12:30 EDT [facility] Blood VENOUS BLOOD / Unknown Venipuncture / Unknown 03/05/2023 10:08 EDT 03/05/2023 10:13 EDT Jorge Lim MD HEMATOLOGY & PF4 ORDERABLES Performing Organization Address [facility] Co de Phone Number [facility] [address] [place] [address] * (ABNORMAL) FACTOR 5 ASSAY (03/05/2023 10:08 EDT) Factor 5 Assay 142(H) 62 - 139 % 03/05/2023 12:30 EDT [facility] Blood VENOUS BLOOD / Unknown Venipuncture / Unknown 03/05/2023 10:08 EDT 03/05/2023 10:13 EDT Jorge Lim MD HEMATOLOGY & PF4 ORDERABLES Performing Organization Address [facility]/ZIP Co de Phone Number [facility] [address] [place] [address] * (ABNORMAL) FACTOR 2 ASSAY (03/05/2023 10:08 EDT) Pathologist [facility] Factor 2 Assay 151(H) 79 - 131 % 03/05/2023 12:30 EDT [facility] Blood VENOUS BLOOD / Unknown Venipuncture / Unknown 03/05/2023 10:08 EDT 03/05/2023 10:13 EDT Jorge Lim MD HEMATOLOGY & PF4 ORDERABLES Performing Organization Address [facility] Co de Phone Number [facility] [address] [place] [address] * FACTOR 13 ANTIGEN (03/05/2023 10:08 EDT) Pathologist [facility] Factor 13 Antigen 129.5 57.1 - 168.5 % 03/05/2023 12:30 EDT [facility] Blood VENOUS BLOOD / Unknown Venipuncture / Unknown 03/05/2023 10:08 EDT 03/05/2023 10:13 EDT Jorge iLm MD HEMATOLOGY & PF4 ORDERABLES Performing Organization Address City/[facility] Co de Phone Number [facility] [address] [place] [address] * FIBRINOGEN (03/05/2023 10:08 EDT) Pathologist [facility] Fibrinogen 369 171 - 384 mg/dL 03/05/2023 10:39 EDT [facility] Blood VENOUS BLOOD / Unknown Venipuncture / Unknown 03/05/2023 10:08 EDT 03/05/2023 10:13 EDT Jorge Lim MD HEMATOLOGY & PF4 ORDERABLES Performing Organization Address City/[facility]/ZIP Co de Phone Number [facility] [address] [place] [address] * (ABNORMAL) COMPLETE BLOOD COUNT (03/05/2023 10:08 EDT) WBC 7.81 4.00 - 12.40 K/cmm 03/05/2023 10:30 EDT [facility] RBC 4.96 3.86 - 5.04 M/cmm 03/05/2023 10:30 EDT [facility] Hemoglobin 15.1 11.6 - 15.2 g/dL 03/05/2023 10:30 EDT [facility] HCT 45.1(H) 34.9 - 44.4 % 03/05/2023 10:30 EDT [facility] MCV 91 81 - 98 fL 03/05/2023 10:30 EDT [facility] MCH 30.4 26.7 - 33.3 pg 03/05/2023 10:30 EDT [facility] MCHC 33.5 32.1 - 35.9 g/dL 03/05/2023 10:30 EDT [facility] RDW-CV 13.1 <14.7 % 03/05/2023 10:30 EDT [facility] RDW-SD 43.1 <50.4 fl 03/05/2023 10:30 EDT [facility] PLT 319 141 - 377 K/cmm 03/05/2023 10:30 EDT [facility] MPV 10.2 9.5 - 12.7 fL 03/05/2023 10:30 EDT [facility] Blood VENOUS BLOOD / Unknown Venipuncture / Unknown 03/05/2023 10:08 EDT 03/05/2023 10:21 EDT Jorge Lim MD HEMATOLOGY & PF4 ORDERABLES Performing Organization Address City/[facility]/ZIP Co de Phone Number [facility] [address] [place] [address] * THROMBIN TIME (03/05/2023 10:08 EDT) [facility] Thrombin Time 12.4 10.3 - 16.9 secs 03/05/2023 12:30 EDT [facility] Blood VENOUS BLOOD / Unknown Venipuncture / Unknown 03/05/2023 10:08 EDT 03/05/2023 10:13 EDT Narrative [facility] - 03/05/2023 12:30 EDT Results will be prolonged in the presence of Heparin, direct thrombin inhibitors such as Dabigatran (Pradaxa), Hirudin (Refludan) and Argatroban (Novastan). Jorge Lim MD HEMATOLOGY & PF4 ORDERABLES [facility] [address] [place] [address] * PTT (03/05/2023 10:08 EDT) [facility] PTT 26 26 - 37 secs 03/05/2023 10:41 EDT [facility] Blood VENOUS BLOOD / Unknown Venipuncture / Unknown 03/05/2023 10:08 EDT 03/05/2023 10:13 EDT Jorge Lim MD HEMATOLOGY & PF4 ORDERABLES [facility] [address] [place] [address] * PROTIME (03/05/2023 10:08 EDT) [facility] I.N.R. 0.9 0.9 - 1.1 Ratio 03/05/2023 10:39 EDT [facility] Pro Time 10.5 9.7 - 12.8 secs 03/05/2023 10:39 EDT [facility] Blood VENOUS BLOOD / Unknown Venipuncture / Unknown 03/05/2023 10:08 EDT 03/05/2023 10:13 EDT Narrative [facility] - 03/05/2023 10:39 EDT Moderate Intensity Coumadin INR = 2.0-3.0 Adjustments in anticoagulant therapy dose should be based on the INR and NOT on the Protime. Jorge Lim MD HEMATOLOGY & PF4 ORDERABLES [facility] [address] [place] [address] documented in this encounter Visit Diagnoses Diagnosis Bleeding disorder (HCC-CMS) Unspecified hemorrhagic conditions documented in this encounter Care Teams Telephonic Nurse Relationship Specialty Start Date End Date Diya Gifford MD [address] [place] [id number] PCP - General 07/26/19 Dariana Juarez MD [address] [place] [address] [address] [place] [phone] Consulting Clinician Cardiovascular Disease 02/06/22 documented as of this encounter
--- OUTSIDE RECORDS SUMMARY | 2024-02-23 17:18 | XMS_ITS | Encounter Summary ---
Author Organization [facility] Address [address] [place] [address] Care Team Providers Care Publications Writer Name Role Phone Diya Gifford MD Primary Care Provide r Dariana Juarez MD Unavailable [phone] Encounter Details Date Type Department Care Team (Late st Contact Info) Description 01/28/2023 Orders Only [facility] [address] [place] [address] RN Encounter for loop [...] Info) Description 03/04/2024 11:30 EDT Office Visit [facility] Interventional Pain [address] [place], [place] [phone] Percy Molina MD [address] [facility] [address] [place] [address] 04/26/2024 9:15 EDT Office Visit [facility] Interventional Pain [address] [place] [address] Percy Molina MD 62 [facility] [address] [place] [address] 01/25/2026 12:00 EDT Office Visit [facility] Hematology & Oncology - [facility] [address] [place], [place] [phone] Jorge Lim MD 111 [facility], [address] [place] [phone] documented as of this encounter Procedures Procedure Name Priority Date/Time Associated Diagnosis Comments CARDIAC IMPLANT CHECK - REMOTE MONITOR Routine 01/28/2023 8:52 EDT Encounter for loop recorder check documented in this encounter Results * CARDIAC IMPLANT CHECK - REMOTE - LOOP RECORDER (ILR) (01/28/2023 8:52 EDT) Anatomical Region Laterality Modality Device Narrative 01/30/2023 8:53 EDT I have reviewed the implantable loop recorder interrogation. ??I agree with the findings. See scanned document for details of remote download. Dano Victoria NP Procedure Note Dano Victoria NP - 01/30/2023 I have reviewed the implantable loop recorder interrogation. I agree withthe findings. See scanned document for details of remote download. Dano Victoria NP Dano Victoria LABORER [employer]AK[employer] CV IMPLANTABLE CARDI AC DEVICE documented in this encounter Visit Diagnoses Diagnosis Encounter for loop recorder check Fitting and adjustment of other cardiac device documented in this encounter Care Teams Publications Writer Relationship Specialty Start Date End Date Diya Gifford MD [address] [place] [address] [address] [place] [address] PCP - General 07/26/19 Dariana Juarez MD [address] [place] [address] [address] [place] [phone] Consulting Clinician Cardiovascular Disease 02/06/22 documented as of this encounter
--- OUTSIDE RECORDS SUMMARY | 2024-02-23 17:18 | XMS_ITS | Encounter Summary ---
Author Organization [facility] Address [address] [place] [address] Care Team Providers Care Take Away Man Name Role Phone Diya Gifford MD Primary Care Provide r Dariana Juarez MD Unavailable [phone] Reason for Visit * Reason Onset Date Comments Appointment Related 11/03/2023 Encounter Details Date Type Department Care Team (Late st Contact Info) Description 11/03/2023 Telephone [facility] - [facility] Interventional Pain [address] [facility] [place] [address] Rubi Ruffin MD [address] [place] [address] [address] [place] [address] Appointment Related Social History Tobacco [...] encounter Miscellaneous Notes * Telephone Encounter - Conchis Simmons - 11/03/2023 6866 EDT Left message on VM letting patient know due to provider schedule change the appointment on 03/07 has been cancelled. A new appointment has been made for 03/08 @ 10am. Left call back number for patient to confirm appointment documented in this encounter Plan of Treatment Upcoming Encounters Date Type Department Care Team (Late st Contact Info) Description 03/04/2024 11:30 EDT Office Visit [facility] Interventional Pain [address] [place] [address] Percy Molina MD [address] [place] [address] [place] [phone] 04/26/2024 9:15 EDT Office Visit [facility] Interventional Pain [address] [place], [place] [phone] Percy Molina MD [address] [place] [phone] 01/25/2026 12:00 EDT Office Visit [facility] Hematology & Oncology - [address] [phone] Jorge Lim MD [address] [place] [address], [address] [place] [address] documented as of this encounter Visit Diagnoses Not on filedocumented in this encounter Care Teams Take Away Man Relationship Specialty Start Date End Date Diya Gifford MD [address] [place] [address] [address] [place] [address] PCP - General 07/26/19 Dariana Juarez MD [address] [place] [phone] Consulting Clinician Cardiovascular Disease 02/06/22 documented as of this encounter
--- OUTSIDE RECORDS SUMMARY | 2024-02-23 17:18 | XMS_ITS | Clinical Summary ---
Author Organization [facility] Address [address] [place] [address] Care Team Providers Care Radio News Writer Name Role Phone Diya Gifford MD Primary Care Provide r Dariana Juarez MD Unavailable [phone] Allergies Active Allergy Reactions Criticality Noted Date [...] t be different from the original. 12/04/21- [facility] [place] [facility] [place]PERM TO SPEAK[place] MOHAMUD HESTER ([facility]) Problem Noted Date Diagnosed Date Obesity 12/06/2020 [...] Refractory obstruction of nasal airway 6 Syncope Encounters Date Type Department Care Team Description 02/23/2024 Lab Requisition [facility] Pathology & Laboratory Medicine - [address] [address] Outr Resulting Lab, Provider 01/15/2024 11:15 EDT - 01/15/2024 23:59 EDT Hospital Encounter [facility] Xray [address] [place] [address] Discharge Disposition: Home or Self Care 01/15/2024 11:[address] [facility] Interventional Pain [address] [place] [address] Percy Molina MD Cervical radiculopathy (Primary Dx) 01/15/2024 11:[address] [facility] Interventional Pain [address] [place] [address] Hailee Caceres PA-C Cervical radiculopathy (Primary Dx) from Last 3 Months Medical History Medical History Date Comments Cleft palate Family History Medical History Relation Comments *Other(comment) Father Cancer Sister Relation Status Comments Father Sister Social History Tobacco Use Types Packs/Day Years [...] 10:16 EST Sexual Orientation Not on file Obstetrics History Last Filed Vital Signs Vital Sign Reading [...] Body Mass Index 36.64 09/23/2023 0649 EDT Plan of Treatment Upcoming Encounters Date Type Department Care Team (Late st Contact Info) Description 03/04/2024 11:[address] [facility] Interventional Pain [address] [place], [place] [phone] Percy Molina MD [address] [facility] [address] [place] [phone] 04/26/2024 9:[address] [facility] Interventional Pain [address] [place], [place] [phone] Percy Molina MD [address] [place] [phone] 01/25/2026 12:00 EDT Office Visit [facility]emat[facility] Oncology - [facility] [address] [place], [place] [phone] Jorge Lim MD 111 [facility], [address] [place] [address] Health Maintenance Due Date Last Done Comments Hepatitis B Vaccine (1 of 3 - 19+ 3-dose series) 01/26 COVID-19 Vaccine ( season) 2023 Hepatitis C Screen Completed 12/16/2021 Medical Devices Implanted Type Area Command And Control Systems Integrator Device Identifier Shelf Expiration Date Model / Serial / Lot Bone Bone Right: Hip Dental Dental Bilateral: Mouth Explanted Type Area Command And Control Systems Integrator Device Identifier Shelf Expiration Date Model / Serial / Lot System Reveal Linq Ii - [id number] Implanted:Qty: 1 on 05/08/2022 by Seferino Chambers MD at [facility] Explanted:Qty: 1 on 09/23/2023 by Seferino Chambers MD Pacemaker N/A: Chest [employer] 07/09/2023 [id number] / [id number] / Procedures Procedure Name Priority Date/Time Associated [...] C Antibody Negative Negative 12/17/2021 10:10 EDT [facility] Blood VENOUS BLOOD / Unknown 12/16/2021 11:00 EDT 12/16/2021 21:15 EDT Provider Outr Resulting Lab CHEMISTRY & BLOOD GAS ORDERABLES [facility] [address] [place] [address] from Last 3 Months or Most Recently Relevant to Health Maintenance Advance Directives For more information, please contact: [phone] * Full Code (Latest Code Status on [...] Made the Decision? Default/Not Discussed Care Teams Radio News Writer Relationship Specialty Start Date End Date Diya Gifford MD [address] [place] [address] [address] [place] [address] PCP - General 07/26/19 Dariana Juarez MD [address] [place] [address] [address] [place] [phone] Consulting Clinician Cardiovascular Disease 02/06/22
--- OUTSIDE RECORDS SUMMARY | 2024-02-23 17:18 | XMS_ITS | Encounter Summary ---
Author Organization [facility] Address [address] [place] [address] Care Team Providers Care Sand Control Worker Name Role Phone Diya Gifford MD Primary Care Provide r Dariana Juarez MD Unavailable [phone] Encounter Details Date Type Department Care Team (Latest Contact Info) Description 09/21/2023 Travel Social History Tobacco Use Types Packs/Day [...] Info) Description 03/04/2024 11:30 EDT Office Visit [facility] Interventional Pain [address] [place] [address] Percy Molina MD 62 [facility] [address] [place] [address] 04/26/2024 9:15 EDT Office Visit [facility] Interventional Pain [address] [place] [address] Percy Molina MD 62 [facility] [address] [place] [address] 01/25/2026 12:00 EDT Office Visit [facility] Hematology & Oncology - [facility] [address] [place], [place] [phone] Jorge Lim MD 111 [facility], [address] [place] [phone] documented as of this encounter Visit Diagnoses Not on filedocumented in this encounter Care Teams Sand Control Worker Relationship Specialty Start Date End Date Diya Gifford MD [address] [place] [phone] PCP - General 07/26/19 Dariana Juarez MD [address] [place] [address]A [address] [place] [phone] Consulting Clinician Cardiovascular Disease 02/06/22 documented as of this encounter
--- OUTSIDE RECORDS SUMMARY | 2024-02-23 17:18 | XMS_ITS | Encounter Summary ---
Author Organization [facility] Address [address] [place] [address] Care Team Providers Care Fusing Line Inspector Name Role Phone Diya Gifford MD Primary Care Provide r Dariana Juarez MD Unavailable [phone] Encounter Details Date Type Department Care Team (Latest Contact Info) Description 10/26/2023 7:59 EDT - 10/26/2023 23:59 EDT Hospital Encounter [facility] Xray [address] [place], [place] [phone] Discharge Disposition: Home or Self Care Social [...] 1 Tablet by mouth at bedtime. 10/10/2023 tranexamic acid 650 mg tablet Take 2 [...] Info) Description 03/04/2024 11:30 EDT Office Visit [facility] Interventional Pain [address] [place] [address] Percy Molina MD 62 [facility] [address] [place] [phone] 04/26/2024 9:15 EDT Office Visit [facility] Interventional Pain [address] [place], [place] [phone] Percy Molina MD 62 [facility] [address] [place] [address] 01/25/2026 12:00 EDT Office Visit [facility] Hematology & Oncology - [facility] [address] [place], [place] [phone] Jorge Lim MD 111 [facility], [address] [place] [phone] documented as of this encounter Procedures Procedure Name Priority Date/Time Associated Diagnosis Comments PAIN CLINIC [place] CERVICAL INJECTION Routine 10/26/2023 9:21 EDT documented in this encounter Results * PAIN CLINIC [place] CERVICAL INJECTION (10/26/2023 9:21 EDT) Narrative 10/26/2023 9:22 EDT This is a non-reportable exam. Rubi Ruffin MD IMG OTHER IMAGING OR DERABLES documented in this encounter Visit Diagnoses Not on filedocumented in this encounter Care Teams Fusing Line Inspector Relationship Specialty Start Date End Date Diya Gifford MD [address] [place] [address] PCP - General 07/26/19 Dariana Juarez MD [address] [place] [address]A [address] [place] [phone] Consulting Clinician Cardiovascular Disease 02/06/22 documented as of this encounter
--- OUTSIDE RECORDS SUMMARY | 2024-02-23 17:18 | XMS_ITS | Encounter Summary ---
Author Organization [facility] Address [address] [place] [address] Care Team Providers Care Digital Media Sales Consultant Name Role Phone Diya Gifford MD Primary Care Provide r Dariana Juarez MD Unavailable [phone] Reason for Visit * Reason Comments Neck Pain Cervical epidural C7 T1 * Prior Authorization (Routine) - Authorization Not Required Specialty Diagnoses / Procedures [facility] To Contact Pain Medicine Diagnoses Radiculopathy, site unspecified Radiculopathy, cervical region cervical epidural C7-T1 /pa pending Procedures DC NJX DX/THER SBST INTRLMNR CRV/THRC W/IMG GDN PAIN CLINIC PROCEDURE [facility] [address] [facility] [place] [address] Rubi Ruffin MD 62 [facility] [address] [place] [phone] Referral ID Status Reason Start Date Expiration Date Visits Requested Visits Authorized [id number] Authorization Not Required 1 1 Encounter Details Date Type Department Care Team (Latest Contact Info) Description 10/26/2023 8:45 EDT Office Visit [facility] Interventional Pain [address] [facility] [place] [address] Rubi Ruffin MD 62 [facility] [address] [place] [phone] Cervical radiculopathy (Primary Dx) Social History Tobacco [...] Sign Reading Time Taken Comments Blood Pressure 161/98 10/26/2023 0927 EDT Asympt omatic Pulse 107 10/26/2023 0927 EDT Asymptom atic Temperature 36.5 ??C (97.7 ??F) 10/26/2023 0812 EDT Respiratory Rate 17 10/26/2023 0812 EDT Oxygen Saturation 99% 10/26/2023 0812 EDT Inhaled Oxygen Concentration - - Weight [...] Yes 03/05/2023 documented as of this encounter Patient Instructions * Patient Instructions* Chapis Snider RN - 10/26/2023 8:45 EDT [facility] [address] [phone] Patient Instructions You have had your cervical Epidural Steroid Injection. The purpose of this procedure has been to place medication which may help relieve your pain. Steroid may be used to decrease the swelling and nerve irritation which may be causing your pain. The following information should help you over the next few days regarding what you may expect. Please take it easy for the rest of today. DO NOT drive a car for the remainder of the day. If you feel sore where the needle(s) entered for the block or develop a flare-up of pain over the next few days, please use ice on the area. You may leave the ice on for up to 20 minutes at a time. Do not use heat, as this may cause swelling. As long as your primary doctor has indicated no restrictions, you may take a mild pain medicine, such as acetaminophen (Tylenol), ibuprofen (Advil, Nuprin, Motrin IB, etc.) or aspirin, if needed. The steroid injection usually takes a few days to become effective. On average, you may notice somerelief in 3 -5 days. However, it may take up to 10 - 14 days to know whether the injection was helpful. If the block causes numbness/weakness, it should wear off within a few hours. If the area that the needle(s) were inserted becomes hot, red, swollen, or increasingly tender, or if you develop a fever (100.5 or greater) or chills along with these symptoms, please call our office immediately. If you develop increasingly severe neck pain, continued numbness or weakness of the arms, please call our office immediately. Instructions for follow-up If you have any questions about your block, please call Patient Education Topic: Method: Handout and Verbal Taught to: Patient Barriers: None Outcomes: verbalized understanding CHAPIS SNIDER RN documented in this encounter Progress Notes * Kat Perez MA - 10/26/2023 0845 EDT [facility] Rooming Note Does patient have a Veterinarian Poultry? yes Is patient NPO? (Solids since midnight & liquids for 4 hrs) Blood Thinners: Is patient on Blood Thinners? no If yes, taking? If stopped, who authorized stopping? Related comments: Infections: Any recent infections, fever of illnesses? no If on antibiotics, is it 7-10 days past the date of completion of antibiotics? Takes doxycycline daily for acne : (for females of child-bearing age) Is there a chance current ? Do you have any type of implanted device? no Vaccination: Have you had or are you planning to have a vaccination in the 2 weeks? no Other: no * Rubi Ruffin MD - 10/26/2023 0845 EDT Patient Name: Marilin Allen : 1975 Date of Service: 10/26/23 Glue Jointer Operator: Rubi Ruffin MD Interval History: Patient presents today regarding a primary complaint chronic neck pain and arm pain. Please refer to the referring physicians encounters for full details regarding the patient's pain complaint and workup. The patient reports no recent changes in the character, quality, or distribution of the pain. There are no recent onset of new associated symptoms such as changes in strength, sensation, or bladder control. Current medical records including medications, anticoagulation status, any signs of current infection, and new imaging were reviewed. Injection History: 10/26/2023: C7-T1 DARREN Verified today: Per hematology: Hemostasis Action Plan for spinal injections Avoid aspirin and NSAIDs for 14 days prior to and post procedure Take 1300 mg TXA morning of the procedure, repeat mid afternoon and prior to bedtime day of procedure; take 650 mg TXA tid post procedure day Physical Exam: Vitals: BP (!) 152/86 (BP Cuff Location: Right arm, BP Patient Position: Sitting, BP Cuff Sizes: Adult, long) Pulse (!) 119 Temp 36.5 ??C (97.7 ??F) (Tympanic) Resp 17 SpO2 99% General: Patient is alert and appropriate in conversation, no acute distress. Lungs: symmetric chest rise, no evidence of labored breathing Skin: WNL in designated region for procedure. Assessment: Ms. Marilin Allen is a 48 y.o. female that presents to the pain clinic to undergo an epidural steroid injection for associated diagnoses. 1. Cervical radiculopathy Plan: Proceed with a therapeutic C7-T1 Epidural steroid injection. All risks, benefits, and alternatives were thoroughly explained to Ms. Marilin Allen who verbally communicated understanding of the management plan. Follow up: The patient plans to follow-up with RICKY Cutler in 6 weeks and we will be available for further evaluation and/or injections as necessary. RTC as needed 4 months if continued appropriate benefit from injection therapy and return of typical pain symptoms. PROCEDURE: The patient gave informed written consent to proceed with this procedure following a detailed discussion of the risks and benefits associated with an epidural steroid injection. The patient was then placed in the prone position. The skin over the designated areas was prepped and drapped in sterile fashion. A keyes moment was performed with full staff present prior to starting the procedure to identify the patient, verify the procedure being performed, and review allergies. Fluoroscopy was used to identify the aforementioned disc and intervertebral space. The skin and subcutaneous tissues were anesthetized with 1% lidocaine. An 18 guage touhy needle was inserted under fluoroscopic guidance by coaxial technique and advancedtowards the interspace. Three views were used to verify needle tip placement. Loss of resistance with normal saline was used to find the epidural space. One pass was required and there were no paresthesias. Contrast dye was injected under live fluoroscopy demonstrating a typical epidural pattern with no evidence of intravascular or intrathecal injection. After negative aspiration for heme and CSF, 80 mg Depo-Medrol and 1 ml Normal Saline were injected.The needle was then flushed and withdrawn. The patient tolerated the procedure well and there were no apparent complications. The patient was discharged in stable condition with written and verbal discharge instructions. Rubi Ruffin MD 10/26/2023 8:56 * Chapis Snider RN - 10/26/2023 0845 EDT ATTENTION: This Checklist should be reviewed with the patient, provider, nurse/MA, and relay technician in the room prior to local anesthetic administration. Site marking is to be done prior to patient being put in to position, preferably when initial exam is done. Sterile field, meds, abd flouro images should be prepared prior to the FINAL VERIFICATION/TIME-OUT. All activity in the room will cease so all team members participate in the surgical brief and have meaningful communication. The Attending is responsible for leading the final verification/keyes moment process. The Nurse/MA will have in her possession the signed consent and the checklist when the surgical pause is performed so written and verbal verification are concluded to be in agreement. [Verified] Patient identifier #1: Full Name [Verified] Patient Identifier #2: Date of [Verified] Allergy to iodine, steroids, local anesthetics, band-aids? [Verified] Location of pain: Patient response: Left vs Right; cervical, thoracic, lumbar, etc. (verified written on consent) [Verified] Site marked [Verified] Safety devices in place: Grounding pad; X-rays available. [Verified] Consent signed in chart [Verified] Consented procedure matches scheduled procedure. documented in this encounter Plan of Treatment Upcoming Encounters Date Type Department Care Team (Late st Contact Info) Description 03/04/2024 11:30 EDT Office Visit [facility] Interventional Pain [address] [place], [place] [phone] Percy Molina MD [address] [place] [address] [place] [phone] 04/26/2024 9:15 EDT Office Visit [facility] Interventional Pain [address] [place] [address] Percy Molina MD [address] [place] [address] [place] [phone] 01/25/2026 12:00 EDT Office Visit [facility] Hematology & Oncology - [address] [phone] Jorge Lim MD [address] [place] [address], [address] [place] [phone] documented as of this encounter Visit Diagnoses Diagnosis Cervical radiculopathy- Primary Brachial neuritis or radiculitis nos documented in this encounter Administered Medications Inactive Administered Medications - up to 3 most recent administrations Medication Order MAR Action Action Date Dose Rate Site Iohexol (OMNIPAQUE 180) injection 1 mL 1 mL, neural-axial, NOW X1, 1 dose, On 4/29/24 at 0945, Routine Given by Other 10/26/2023 9:26 EDT 2 mL methylPREDNISolone ACETATE (DEPO-MEDROL) injection 80 mg 80 mg, neural-axial, NOW X1, 1 dose, On Thu10/26/23 at 0945, Routine Given by Other 10/26/2023 9:27 EDT 80 mg documented in this encounter Historical Medications * This list may reflect changes made after this encounter. Medication Sig Dispensed Refills Start Date End Date zolpidem (AMBIEN) 5 mg tablet Take 1 Tablet by mouth at bedtime. 10/10/2023 added in this encounter Care Teams Digital Media Sales Consultant Relationship Specialty Start Date End Date Diya Gifford MD [address] [place] [address] PCP - General 07/26/19 Dariana Juarez MD [address] [place] [address] [address] [place] [phone] Consulting Clinician Cardiovascular Disease 02/06/22 documented as of this encounter
--- OUTSIDE RECORDS SUMMARY | 2024-02-23 17:18 | XMS_ITS | Encounter Summary ---
Author Organization [facility] Address [address] [place] [address] Care Team Providers Care Green Building Materials Distributor Name Role Phone Diya Gifford MD Primary Care Provide r Dariana Juarez MD Unavailable [phone] Reason for Visit * Auth/Cert (Routine) Specialty Diagnoses / Procedures Referred By [facility] Referred To Contact Diagnoses Syncope, unspecified syncope type Syncope, unspecified syncope type [R55] Procedures AR REMOVAL SUBCUTANEOUS CARDIAC RHYTHM MONITOR REMOVAL, CARDIAC RHYTHM MONITORING DEVICE, SUBCUTANEOUS Referral ID Status Reason Start Date Expiration Date Visits Re quested Visits Authorized [id number] 1 1 Encounter Details Date Type Department Care Team (Late st Contact Info) Description 09/23/2023 7:30 EDT - 09/23/2023 8:35 EDT Surgery [facility] Operating Room [address] [place] [address] [id number] Seferino Chambers MD [address] [place] [address] MOB-A [address] [place] [address] REMOVAL, CARDIAC RHYTHM MONITORING DEVICE, SUBCUTANEOUS [91535 (CPT??)] Surgery Details Date/Time Status Location OR Service Patient Class Case Cl ass Case Type Trauma Case? 09/23/23 0730 Posted [facility] OR OR 02 Cardiovascular Ho spital Outpatient Surgery H - Elective Panel 1 Procedure LRB Anes Op Region Wound Class Comments REMOVAL, CARDIAC RHYTHM MONITORING DEVICE, SUBCUTANEOUS N/A Local (Nurse-Monitored) Class I/ Clean Surgeon Surgeon Role Service Panel Seferino Chambers MD Primary Cardiovascular 1 Special Needs SF 08/17- contacted [employer] documented in this encounter Social History Tobacco Use Types Packs/Day Years [...] Sign Reading Time Taken Comments Blood Pressure 144/83 09/23/2023 0649 EDT Pulse - - Temperature 36.8 ??C (98.2 ??F) 09/23/2023 0649 EDT Respiratory Rate 16 09/23/2023 0649 EDT Oxygen Saturation 98% 09/23/2023 0649 EDT Inhaled Oxygen Concentration - - Weight [...] not included. Discharge Instructions for Patients with sales engineer engineered products explants Wound Care: If derma-minor was used, [...] DEVICE, SUBCUTANEOUS Operative Note Date: 09/23/2023 Location: [facility] OR Name: Marilin Allen, : [...] (Active) Wound 09/23/23 Incision Chest (Active) Staff: Human Resources Representative: Poly Khan RN Relief Human Resources Representative: Rinku Yost RN Scrub Person: Sandi Harry [...] blunt and sharp dissection, th e device ([employer] Reveal LINQII) was accessed without problems and explanted. Manual pressure washeld for 5 minutes for hemostasis. The incision was then closed with a single horizontal suture using 4-0 Biosyn suture material. The skin was then closed with Dermabond skin glue. Summary: Successful explantation of a [employer] Reveal LINQ implanted dental practitioner. CPT 21002. Complications: None; patient tolerated the procedure well. Disposition: PACU - hemodynamically stable. Condition: stable Specimens:None Implants: none Seferino Chambers MD documented in this encounter Miscellaneous Notes * Brief Op Note - Seferino Chambers MD - 09/23/2023 0834 EDT Date: 09/23/2023 Location: [facility] OR Name: Marilin Allen, : [...] (Active) Wound 09/23/23 Incision Chest (Active) Staff: Human Resources Representative: Poly Khan RN Scrub Person: Sandi Harry [...] Info) Description 03/04/2024 11:30 EDT Office Visit [facility] Interventional Pain [address] [place] [address] Percy Molina MD [address] [place] [address] [place] [phone] 04/26/2024 9:15 EDT Office Visit [facility] Interventional Pain [address] [place] [address] Percy Molina MD [address] [place] [address] [place] [phone] 01/25/2026 12:00 EDT Office Visit [facility] Hematology & Oncology - [address] [phone] Jorge Lim MD [address] [place] [address] 2 [place] [phone] documented as of this encounter Procedures Procedure Name Priority Date/Time Associated Diagnosis Comments REMOVAL, CARDIAC RHYTHM MONITORING DEVICE, SUBCUTANEOUS 09/23/2023 7:46 EDT Syncope, unspecified syncope type Special Needs 08/17- contacted [employer] documented in this encounter Visit Diagnoses Diagnosis Syncope, unspecified syncope type Syncope, unspecified syncope type documented in this encounter Admitting Diagnoses Diagnosis Syncope Syncope and collapse documented in this encounter Administered Medications Inactive Administered Medications - up to 3 most recent administrations Medication Order MAR Action Action Date Dose Rate Site BUPivacaine (PF) (MARCAINE) 0.5% 30 mL, lidocaine (PF) 10 mg/mL (1 %) 30 mL, sodium bicarbonate 8.4 % 3 mL PRN, Starting on Thu09/23/23 at 0815, Until Thu09/23/23 at 0832, Intraprocedure Given 09/23/2023 8:15 EDT 12 mL Chest chlorhexidine gluconate 2 % cloth 1 Each [...] Count Last Ordered Date First Ordered Date chlorhexidine gluconate 2 % cloth 1 Each 1 09/23/2023 Discharge Count Last Ordered Date First Orde red Date DISCHARGE PATIENT 1 09/23/2023 documented in this encounter Care Teams Green Building Materials Distributor Relationship Specialty Start Date End Date Diya Gifford MD [address] [place] [address] [address] [place], [place] [phone] PCP - General 07/26/19 Dariana Juarez MD [address] [place] [address]-A [address] [place] [address] Consulting Clinician Cardiovascular Disease 02/06/22 documented as of this encounter
--- OUTSIDE RECORDS SUMMARY | 2024-02-23 17:18 | XMS_ITS | Encounter Summary ---
Author Organization [facility] Address [address] [place] [address] Care Team Providers Care Civil Cad Tech Name Role Phone Diya Gifford MD Primary Care Provide r Dariana Juarez MD Unavailable [phone] Reason for Referral * Prior Authorization (Routine/Next Available) - Authorization Not Required Specialty Diagnoses / Procedures [facility] Referred To Contact Diagnoses Bleeding disorder ([facility]) Procedures CHG FIBRINOLYSINS/COAGULOPATH Y SCREEN INTERP&REPOR CHG ELECTRON MICROSCOPY DIAGNOSTIC Jorge Lim MD 111 [facility] 2 [place] [address] [facility] Ep2 Hem/Onc [address] [place] [address] Referral ID Status Reason Start Date Expiration Date Visits Requested Visits Authorized [id number] Authorization Not Required Specialty Services Required 06/30/2023 1 1 Question Answer Reason for Request: Platelet Transmission Electron Microscopy Study/Moser/Test ID:PTEM/CPT codes: 83065, 91578 Comments The purpose of this request is to inform precertification staff that the requested service needs to be reviewed for prior-authorization. This is not a genetic test. [email or web address] * Prior Authorization (Routine/Next Available) - Authorization Not Required Specialty Diagnoses / Procedures Referred By Contac t Referred To Contact Diagnoses Bleeding disorder ([facility]) Procedures CHG EUGLOBULIN LYSIS CHG FIBRIN DGRADJ SPLT PRODUXS AGGLUJ SLIDE SEMIQUAN CHG FIBRIN DGRADJ PRODUCTS D-DIMER QUANTITATIVE CHG FBRNLYC FACTORS&INHIBITORS ALPHA-2 ANTIPLASMIN CHG FBRNLYC FACTORS&INHIBITORS PLSMNG ACTIVATOR CHG FBRNLYC FACTORS&INHIBITRS PLSMNG XCPT AGIC Jorge Kinney MD 111 [facility], [facility], [facility] 2 [place] [address] [facility] Ep2 Hem/Onc [address] [place] [address] Referral ID Status Reason Start Date Expiration Date Visits Requested Visits Authorized [id number] Authorization Not Required Specialty Services Required 06/30/2023 1 1 Question Answer Reason for Request: Fibrinolysis Evaluation/Moser/Test ID: [id number]/CPT codes: 99201, 80509, 11533, 43147, 67237 (x2), 88562 Comments The purpose of this request is to inform precertification staff that the requested service needs to be reviewed for prior-authorization. Not a genetic test [email or web address] Encounter Details Date Type Department Care Team (Late st Contact Info) Description 06/30/2023 Orders Only [facility] Hematology & Oncology - [address] [address] Missy Harris, TATUM [address] [place] [address] Bleeding disorder ([facility]) (Primary Dx) Social History Tobacco Use Types [...] as of this encounter Progress Notes * Missy Harris, RN - 06/30/2023 1231 EST PA's placed for Platelet Receptor Flow Cytometry and Fibrinolytic Panel. Order placed for Platelet Electron Microscopic Study. documented in this encounter Plan of Treatment Upcoming Encounters Date Type Department Care Team (Late st Contact Info) Description 03/04/2024 11:30 EDT Office Visit [facility] Interventional Pain [address] [place] [address] Percy Molina MD [address] [place] [phone] 04/26/2024 9:15 EDT Office Visit [facility] Interventional Pain [address] [place] [address] Percy Molina MD [address] [place] [address] [place] [phone] 01/25/2026 12:00 EDT Office Visit [facility] Hematology & Oncology - Main [address] [phone] Jorge Lim MD [facility] 2 [place] [address] Scheduled Referrals Name Type Priority Associated Diagnoses Order Schedule AMB CONS/FOLLOW UP GENETIC TESTING PRIOR AUTHORIZATION REQUEST Outpatient Referral Routine/Next Available Bleeding disorder (HCC-CMS) Expected: 07/07/2023 (Approximate), Expires: 06/30/2024 AMB CONS/FOLLOW UP GENETIC TESTING PRIOR AUTHORIZATION REQUEST Outpatient Referral Routine/Next Available Bleeding disorder (HCC-CMS) Expected: 07/07/2023 (Approximate), Expires: 06/30/2024 documented as of this encounter Results * MISCELLANEOUS TEST, GREGORY (08/10/2023 9:14 EST) [facility] Miscellaneous Test, [place] SEE NOTE 08/12/2023 11:18 EST [facility] Comment: Test ?Result ?Flag ??Unit ??RefValue Platelet [...] developed and its performance characteristics ?determined by [facility] in a manner consistent with CLIA ?requirements. This test has not been cleared or approved by ?the U.S. Food and Drug Administration. ?Test Performed by: ?[facility] ?[address] [place] [address] ?Rotary Pump Operator: Liban Aly M.D. Ph.D.; IA# [id number] Blood VENOUS BLOOD / Unknown Venipuncture / Unknown 08/10/2023 9:14 EST 08/10/2023 9:24 EST Jorge Lim MD CHEMISTRY & BLOOD GAS ORDERABLES [facility] [address] [place] [address] documented in this encounter Visit Diagnoses Diagnosis Bleeding disorder ([facility] Primary Unspecified hemorrhagic conditions documented in this encounter Care Teams Civil Cad Tech Relationship Specialty Start Date End Date Diya Gifford MD [address] [place] [address] PCP - General 07/26/19 Dariana Juarez MD [address] [place] [address]-A [address] [place] [phone] Consulting Clinician Cardiovascular Disease 02/06/22 documented as of this encounter
--- OUTSIDE RECORDS SUMMARY | 2024-02-23 17:18 | XMS_ITS | Encounter Summary ---
Author Organization [facility] Address [address] [place] [address] Care Team Providers Care Pharmacy Intern Name Role Phone Diya Gifford MD Primary Care Provide r Dariana Juarez MD Unavailable [phone] Reason for Visit * Reason Onset Date Comments Follow-up 04/22/2023 Carelink Transmi tter Encounter Details Date Type Department Care Team (Late st Contact Info) Description 04/22/2023 Telephone [facility] Cardiology Clinic [address] [place] [address] RN Follow-up (Carelink Transmitter/) Social History Tobacco Use Types Packs/Day Years [...] encounter Miscellaneous Notes * Telephone Encounter - Carmen Way, RN - 04/22/2023 7948 EDT Carelink remote transmitter is disconnected no information since 03/21. Call to patient, she states she unplugged it, at her last OV with Dano it was decided her symptoms were not her heart and didn't need it any longer. She is looking to have loop recorder removed. documented in this encounter Plan of Treatment Upcoming Encounters Date Type Department Care Team (Late st Contact Info) Description 03/04/2024 11:30 EDT Office Visit [facility] Interventional Pain [address] [place], [place] [phone] Percy Molina MD 62 [facility] [address] [place] [phone] 04/26/2024 9:15 EDT Office Visit [facility] Interventional Pain [address] [place] [address] Percy Molina MD [address] [place] [address] [address] [place] [address] 01/25/2026 12:00 EDT Office Visit [facility] Center Hematology & Oncology - [facility] [address] [place], [place] [phone] Jorge Lim MD 111 [facility], [facility], Level [address] [place] [address] documented as of this encounter Visit Diagnoses Not on filedocumented in this encounter Care Teams Pharmacy Intern Relationship Specialty Start Date End Date Diya Gifford MD 4 [facility] [address] [place] [address] PCP - General 07/26/19 Dariana Juarez MD [address] [place] [address] [phone] Consulting Clinician Cardiovascular Disease 02/06/22 documented as of this encounter
--- OUTSIDE RECORDS SUMMARY | 2024-02-23 17:18 | XMS_ITS | Encounter Summary ---
Author Organization [facility] Address [address] [place] [address] Care Team Providers Care Dry Press Operator Name Role Phone Diya Gifford MD Primary Care Provide r Dariana Juarez MD Unavailable Reason for Visit * Reason Comments Neck Pain * Prior Authorization (Routine) - Authorization Not Required Specialty Diagnoses / Procedures [facility] To Contact [facility] Medicine Diagnoses Radiculopathy, cervical region cervical epidural C7-T1 Procedures [place] NJX DX/THER SBST INTRLMNR CRV/THRC W/IMG GDN PAIN CLINIC PROCEDURE [facility] 62 [facility] [place] [address] Rubi Ruffin MD 62 [facility] [address] [place] [phone] Referral ID Status Reason Start Date Expiration Date Visits Requested Visits Authorized [id number] Authorization Not Required 1 1 Encounter Details Date Type Department Care Team (Latest Contact Info) Description 01/15/2024 11:15 EDT Office Visit [facility] Interventional Pain 62 [facility] [place] [place] [address] Percy Molina MD 62 [facility] [address] [place] [phone] Cervical radiculopathy (Primary Dx) Social History [...] EDT Pulse 80 01/15/2024 1208 EDT Temperature - - Respiratory Rate 18 01/15/2024 1208 EDT Oxygen Saturation - - Inhaled Oxygen Concentration - - Weight - [...] this encounter Patient Instructions * Patient Instructions* Kiah Boyd RN - 01/15/2024 11:15 EDT [facility] [address] [address] Patient Instructions You have had your cervical [...] Verbal Taught to: Patient Barriers: None Outcomes: independent and verbalized understanding KIAH BOYD RN documented in this encounter Progress Notes * Kiah Boyd RN - 01/15/2024 1115 EDT ATTENTION: An active Time-Out initiated by the Provider requires that all members of the proceduralsupport team are present and must stop activity until the Time-Out is completed. The Nurse will have in their possession the signed consent to compare to the verbal verification ofthe items below: [Verified] Patient identifier #1: Full Name [Verified] Patient Identifier #2: Date of [Verified] No allergy to sterile prep products, steroids, local anesthetics, band-aids, or contrastdye [Verified] Full team and patient verification of location of pain and procedure to be performed [Verified] Site marked (Region and/or Laterality) [Verified] Presence of Implantable Devices [Verified] Safety devices are in place (Grounding pad, X-rays available, and/or Magnet) [Verified] Consent signed and matches planned procedure and site marking [Verified] Active verbal communication by the entire procedural team was completed. * Percy Molina MD - 01/15/2024 1115 EDT Patient Name: Marilin Allen : 1975 Date of Service: 01/15/24 Engraver Block: Percy Molina MD Interval History: Patient presents today regarding [...] and new imaging were reviewed. Injection History: 01/15/24: C7-T1 DARREN 10/26/23: C7T1 DARREN Hemostasis Action Plan for spinal injections Avoid aspirin and NSAIDs for 14 days prior to and post procedure Take 1300 mg TXA morning of the procedure, repeat mid afternoon and prior to bedtime day of procedure; take 650 mg TXA tid post procedure day Physical Exam: Vitals: BP (!) 169/89 (BP Cuff Location: Right arm, BP Patient Position: Sitting, BP Cuff Sizes: Adult, long) Pulse 80 Resp 18 General: Patient is alert and appropriate in conversation, no acute distress. Lungs: symmetric chest rise, no evidence of labored breathing Skin: WNL in designated region for procedure. Exam otherwise unchanged from prior Assessment: Ms. Marilin Allen is a 48 y.o. female that presents to the pain clinic to undergo an epidural steroid injection for associated diagnoses. Also discussed risk with performing steroid administration close together. 1. Cervical radiculopathy Plan: Proceed with a therapeutic C7-T1 Epidural steroid injection. All risks, benefits, and alternatives were thoroughly explained to Ms. Marilin Allen who verbally communicated understanding of the management plan. Follow up: we discussed that while it's worth scheduling another procedure because they are consistently helpful, we will also schedule a follow up visit, so she needs to know which visit she is scheduled for before she arrives. PROCEDURE: The patient gave informed written consent [...] tissues were anesthetized with 1% lidocaine. An 20 guage touhy needle was inserted under fluoroscopic [...] After negative aspiration for heme and CSF, 10 mg Dexamethasone and 1 ml Normal Saline were injected. The needle was then flushed and withdrawn. The patient tolerated the procedure well and there were no apparent complications. The patient was discharged in stable condition with written and verbal discharge instructions. Percy Molina MD documented in this encounter Plan of Treatment Upcoming Encounters Date Type Department Care Team (Late st Contact Info) Description 03/04/2024 11:30 EDT Office Visit [facility] Interventional Pain [address] [place] [address] Percy Molina MD [address] [place] [address] [place] [phone] 04/26/2024 9:15 EDT Office Visit [facility] Interventional Pain [address] [place] [address] Percy Molina MD [address] [place] [address] [address] [place] [address] 01/25/2026 12:00 EDT Office Visit [facility] Cancer Center Hematology & Oncology - [address] [phone] Jorge Lim MD 111 [facility], [facility], Level 2 [place] [phone] documented as of this encounter Visit Diagnoses Diagnosis Cervical radiculopathy- Primary Brachial neuritis or radiculitis nos documented in this encounter Administered Medications Inactive Administered Medications - up to 3 most recent administrations Medication Order MAR Action Action Date Dose Rate Site dexAMETHasone (DECADRON) injection 10 mg 10 mg, neural-axial, NOW X1, 1 dose, On Thu01/15/24 at 1215, Routine Given by Other 01/15/2024 11:59 EDT 10 mg Iohexol (OMNIPAQUE 180) injection 2 mL 2 mL, neural-axial, NOW X1, 1 dose, On Thu01/15/24 at 1215, Routine Given by Other 01/15/2024 11:59 EDT 2 mL documented in this encounter Care Teams Dry Press Operator Relationship Specialty Start Date End Date Diya Gifford MD [address] [place] [address] PCP - General 07/26/19 Dariana Juarez MD [address] [place] [address] [address] [place] [phone] Consulting Clinician Cardiovascular Disease 02/06/22 documented as of this encounter
--- OUTSIDE RECORDS SUMMARY | 2024-02-23 17:18 | XMS_ITS | Encounter Summary ---
Author Organization [facility] Address [address] [place] [address] Care Team Providers Care Wholesale Account Manager Name Role Phone Diya Gifford MD Primary Care Provide r Dariana Juarez MD Unavailable [phone] Reason for Visit * Reason Onset Date Comments Follow-up 08/12/2023 Reveal loop deandre rder Encounter Details Date Type Department Care Team (Late st Contact Info) Description 08/12/2023 Telephone [facility] Cardiology Clinic [address] [place] [address] RN Follow-up (Reveal loop recorder) Social History Tobacco Use Types Packs/Day Years [...] Miscellaneous Notes * Telephone Encounter - Carmen Way RN - 09/09/2023 1544 EDT No PA needed from Medicaid for this procedure. ( Only need PA for out of state, psychiatry or detox) * Telephone Encounter - Carmen Way RN - 08/18/2023 1334 EST Letter written with instructions for procedure. Sent to patient. * Telephone Encounter - Carmen Way RN - 08/17/2023 1109 EST Spoke with patient, she is aware of need for loop recorder removal. Aware next available date is September 22Thursday. She is amenable to this date. Discussed initial instructions for explant and is aware that instructions will be mailed as she has no My Chart access. * Telephone Encounter - Carmen Way RN - 08/12/2023 1024 EST Reveal loop recorder implanted 08/18 has reached [employer]ING OFFICER 04/20. No information received since 05/21. ? Is it appropriate to arrange scheduling for explant next available? To [facility]ano Victoria and Dr. Juarez documented in this encounter Plan of Treatment Upcoming Encounters Date Type Department Care Team (Late st Contact Info) Description 03/04/2024 11:30 EDT Office Visit [facility] Interventional Pain [address] [place] [address] Percy Molina MD [address] [place] [address] [address] [place] [address] 04/26/2024 9:15 EDT Office Visit [facility] Interventional Pain 62 [facility] [place], [place] [phone] Percy Molina MD 62 [facility] [address] [place] [address] 01/25/2026 12:00 EDT Office Visit [facility] Cancer Center Hematology & Oncology - [facility] [address] [place] [address] Jorge Lim MD [address] [facility], Level [address] [place] [phone] documented as of this encounter Visit Diagnoses Not on filedocumented in this encounter Care Teams Wholesale Account Manager Relationship Specialty Start Date End Date Diya Gifford MD [address] [place] [phone] PCP - General 07/26/19 Dariana Juarez MD [address] [place] [address]A [address] [place] [address] Consulting Clinician Cardiovascular Disease 02/06/22 documented as of this encounter
--- OUTSIDE RECORDS SUMMARY | 2024-02-23 17:19 | XMS_ITS | Encounter Summary ---
Author Organization [facility] Address [address] [place] [address] Care Team Providers Care Parts Sales Representative Name Role Phone Diya Gifford MD Primary Care Provide r Dariana Juarez MD Unavailable [phone] Encounter Details Date Type Department Care Team (Late st Contact Info) Description 12/16/2021 Lab Requisition [facility] Pathology & Laboratory Medicine - [facility] [address] [place] [address] Outr Resulting Lab, Provider Social History Tobacco [...] [facility] Inter[facility] Pain [address] [place], [place] [phone] Percy Molina MD [address] [place] [address] [address] [place] [address] 04/26/2024 9:15 EDT Office Visit [facility] Interventional Pain [address] [place] [address] Percy Molina MD [address] [place] [address] [address] [place] [address] 01/25/2026 12:00 EDT Office Visit [facility] Hematology & Oncology - [facility] [address], [place] [phone] Jorge Lim MD 111 [facility] 2 [place] [phone] documented as of this encounter Procedures Procedure Name Priority Date/Time Associated Diagnosis Comments HEPATITIS C AB W REFLEX TO HCV RNA BY PCR Routine 12/16/2021 11:00 EDT documented in this encounter Results * HEPATITIS C AB W REFLEX TO HCV RNA BY PCR (12/16/2021 11:00 EDT) Hep C Antibody Negative Negative 12/17/2021 10:10 EDT [facility] Blood VENOUS BLOOD / Unknown 12/16/2021 11:00 EDT 12/16/2021 21:15 EDT Provider Outr Resulting Lab CHEMISTRY & BLOOD GAS ORDERABLES [facility] [address] [place] [address] documented in this encounter Visit Diagnoses Not on filedocumented in this encounter Care Teams Parts Sales Representative Relationship Specialty Start Date End Date Diya Gifford MD [address] [place] [address] [address] [place] [address] PCP - General 07/26/19 Dariana Juarez MD [address] [place] [address] [address] [place] [phone] Consulting Clinician Cardiovascular Disease 02/06/22 documented as of this encounter
--- OUTSIDE RECORDS SUMMARY | 2024-02-23 17:19 | XMS_ITS | Encounter Summary ---
Author Organization [place] [facility] Address [address] [place] [address] Care Team Providers Care Armature Connector Name Role Phone Diya Gifford MD Primary Care Provide r Reason for Referral * Cardiology (Routine/Next Available) - Specialty Report Received Specialty Diagnoses / Procedures Referred By [facility] Referred To Contact Nuclear Medicine Diagnoses Syncope, unspecified syncope type Procedures NM CARD SPECT NUCLEAR STRESS Dariana Juarez MD [address] [place] [phone] [facility] Referral ID Status Reason Start Date Expiration Date V isits Requested Visits Authorized [id number] Specialty Report Received 12/03/2021 1 1 Reason for Visit * Cardiology (Routine/Next Available) - Specialty Report Received Specialty Diagnoses / Procedures Referred By [facility] Referred To Contact Nuclear Medicine Diagnoses Syncope, unspecified syncope type Procedures NM CARD SPECT NUCLEAR STRESS Dariana Juarez MD [address] [place] [phone] [facility] Referral ID Status Reason Start Date Expiration Date V isits Requested Visits Authorized [id number] Specialty Report Received 12/03/2021 1 1 Encounter Details Date Type Department Care Team (Latest Contact Info) Description 12/25/2021 7:12 EDT - 12/25/2021 7:[address] [facility] Nuclear Medicine [address] [place] [address] Syncope, unspecified syncope type Discharge Disposition: Home or Self Care Social [...] No 10/31/2021 documented as of this encounter Medications at Time of Discharge Medication Sig Dispensed Refills Start Date End Date amitriptyline (ELAVIL) 100 mg tablet 1 Tablet daily. 09/19/2021 cetirizine (ZYRTEC) 10 mg tablet Take 1 Tablet by mouth if needed. Reported on 07/08/2016 diclofenac sodium gel Apply topically 2 times [...] capsule Take 75 mg by mouth daily. amitriptyline (ELAVIL) 50 mg tablet Take 50 mg by mouth at bedtime as needed. 07/29/2010 03/19/2022 buPROPion (WELLBUTRIN SR) 150 mg SR tablet Take 150 mg by mouth 2 times daily. 07/27/2021 03/05/2023 cyclobenzaprine (FLEXERIL) 5 mg tablet Take 5 mg by mouth 3 times daily. 03/19/2022 doxycycline (ADOXA) 100 mg tablet Take 100 mg by mouth daily. Reported on 07/08/2016 05/09/2022 hydroCHLOROthiazide (HYDRODIURIL) 12.5 mg tablet Take 12.5 mg by mouth daily. 03/19/2022 nystatin (MYCOSTATIN) 100,000 unit/mL suspension TAKE 5ML BY MOUTH FOUR TIMES A DAY SWISH & SWALLOW UNTIL SYMPTOMS RESOLVE 08/07/2021 03/19/2022 UNABLE TO FIND Control 1 pil /day 03/19/2022 zolpidem (AMBIEN) 5 mg tablet Take 5 mg by mouth at bedtime. 03/19/2022 documented as of this encounter Discharge Disposition Disposition Code Departure Means Destination Home or Self Care documented in this encounter Miscellaneous Notes * Result Encounter Note - Dariana Juarez MD - 12/25/2021 0745 EDT Please let Ms. Allen know her stress test was normal. documented in this encounter Plan of Treatment Upcoming Encounters Date Type Department Care Team (Late st Contact Info) Description 03/04/2024 11:30 EDT Office Visit [facility] Interventional Pain [address] [place] [address] Percy Molina MD 62 [facility] [address] [place] [address] 04/26/2024 9:15 EDT Office Visit [facility] Interventional Pain [address] [place] [address] Percy Molina MD 62 [facility] [address] [place] [address] 01/25/2026 12:00 EDT Office Visit [facility] Cancer Center Hematology & Oncology - [facility] [address] [place], [place] [phone] Jorge Lim MD 111 [facility], [address] 2 [place] [address] documented as of this encounter Procedures Procedure Name Priority Date/Time Associated Diagnosis Comments NM CARD SPECT PHARM MULT STUDIES COMPLETE Routine 12/25/2021 10:35 EDT Syncope, unspecified syncope type documented in this encounter Results * NM CARD SPECT PHARM MULT STUDIES COMPLETE (12/25/2021 10:35 EDT) Baseline HR 79 bpm ISITEMERGECARDIO Baseline Systolic BP 145 mmHg ISITEMERGECARDIO Baseline Diastolic BP 106 mmHg ISITEMERGECARDIO Peak HR 99 bpm ISITEMERGECARDIO Percent HR 57 ISITEMERGECARDIO Systolic BP 179 mmHg ISITEMERGECARDIO Peak Diastolic BP 80 mmHg ISITEMERGECARDIO Recovery HR 82 bpm ISITEMERGECARDIO Recovery BP 140 mmHg ISITEMERGECARDIO Recovery Diastolic BP 89 mmHg ISITEMERGECARDIO Target HR 173 bpm ISITEMERGECARDIO Exercise duration (min) 0 min ISITEMERGECARDIO Exercise duration (sec) 50 sec ISITEMERGECARDIO Measured METS 2.5 ISITEMERGECARDIO Angina Index 0 ISITEMERGECARDIO Nuc Stress EF 54 % ISITEMERGECARDIO Anatomical Region Laterality Modality Chest Nuclear Medicine Narrative 12/25/2021 13:51 EDT ?Perfusion: There was no myocardial perfusion defect at rest and post stress in the visible parts of ther myocardium. ?Function: Global LV function is normal. Post-stress ejection fraction is 54 %. ?Stress ECG: Stress ECG was non-diagnostic due to inadequate heart rate. ?Stress data: Target heart rate not achieved. Maximal heart rate during stress was 99 (57 % of MPHR). The HR response to exercise was blunted. There was a normal BP response to exercise. Switched to Rgadenoson stress. ?Impression: There was normal perfusion and function. Sensitivity for perfusion defects in the inferior wall is limited due to significant bowel tracer uptake. Nuclear Study Quality Overall image quality is fair. Subdiaphragmatic attenuation Stress Function Comments Global LV function was normal. Post-stress ejection fraction was 54 %. There were no regional wall motion abnormalities. Baseline ECG There was normal sinus rhythm. Stress ECG There were no significant ST segment deviations noted during stress. There were no significant arrhythmias noted during stress. Recovery ECG There were no significant arrhythmias noted during recovery. Result ECG Stress ECG was non-diagnostic due to inadequate heart rate. HPI and Indications History: 46 year old female c/o recurrent syncopal episodes since Jul. Does not feel anything prior, states she just wakes up on the floor. Has happened 4 times. Was admitted to [facility] after first episode- work up negative, echo normal, EKG negative. Also reports some increased weakness and SOB over the past couple months. Pt currently wearing Veeker monitor- states she was celled Thursday at 4am by company asking if she was ok- states she had high heart rate then pause. Pt had previously been asleep prior to call waking her up. No previous hx. Patient Status Risk Factors Known family history of coronary artery disease, hypertension and obese. Pt states father and a couple uncles had multiple syncopal episodes prior to sudden cardiac . Stress Data Stress exercise testing was performed using the Donaldo protocol. Regadenoson. There was hypertension at baseline. Target heart rate not achieved. There was a normal BP response to exercise. The HR response to exercise was blunted. Total exercise time was 0 min 50 sec. The patient experienced no angina during the test. Exercise was terminated - pt very emotional, stated I'm done and test was terminated. Changed to Regadenoson study. Maximal heart rate during stress was 99 (57 % of MPHR). Medications Beta blockers and diuretics. Supervising Physician Seferino Chambers MD supervised and was immediately available during the procedure. Perfusion Defect There was no myocardial perfusion defect at rest and post stress. Image Protocol Myocardial perfusion imaging using SPECT/CT was performed. The study was a 1-day rest-stress study. Attenuation correction was used. The patient was imagined in the supine position. Images acquired at rest and post stress were processed and reviewed. Nuc Impression There was normal perfusion and function. Sensitivity for perfusion defects in the inferior wall is limited due to significant bowel tracer uptake. Dariana Juarez MD CARDIAC NM ORDERABLE S documented in this encounter Visit Diagnoses Diagnosis Syncope, unspecified syncope type documented in this encounter Administered Medications Inactive Administered Medications - up to 3 most recent administrations Medication Order MAR Action Action Date Dose Rate Site technetium (Tc-99m) sestamibi injection 10 millicurie 10 millicurie, radiopharm IV, Once in imaging, 1 dose, Starting on Thu12/25/21 at 0741, Until Thu12/25/21 at 0750, Routine, Imaging Protocol Orders Given 12/25/2021 7:50 EDT 10 millicuries technetium (Tc-99m) sestamibi injection 30 millicurie 30 millicurie, radiopharm IV, Once in imaging, 1 dose, Starting on Thu12/25/21 at 0741, Until Thu12/25/21 at 0853, Routine, Imaging Protocol Orders Given 12/25/2021 8:53 EDT 31 millicuries documented in this encounter Care Teams Armature Connector Relationship Specialty Start Date End Date Diya Gifford MD [address] [facility] [address] [place] [address] PCP - General 07/26/19 documented as of this encounter
--- OUTSIDE RECORDS SUMMARY | 2024-02-23 17:19 | XMS_ITS | Encounter Summary ---
Author Organization [facility] Address [address] [place] [address] Care Team Providers Care Commercial Loan Coordinator Name Role Phone Diya Gifford MD Primary Care Provide r Encounter Details Date Type Department Care Team (Latest Contact Info) Description 10/08/2021 Travel Social History Tobacco Use Types Packs/Day [...] 10:16 EST Sexual Orientation Not on file COVID-19 Exposure Response Date Recorded In the last 10 days, have yo u been in contact with someone who was confirmed or suspected to have Coronavirus/COVID-19? No / Unsure 10/08/2021 14:02 EDT documented as of this encounter Plan of Treatment Upcoming Encounters Date Type Department Care Team (Late st Contact Info) Description 03/04/2024 11:30 EDT Office Visit [facility] Interventional Pain [address] [place] [address] Percy Molina MD 62 [facility] [address] [place] [address] 04/26/2024 9:15 EDT Office Visit [facility] Interventional Pain [address] [place] [address] Percy Molina MD 62 [facility] [address] [place] [address] 01/25/2026 12:00 EDT Office Visit [facility] Cancer Center Hematology & Oncology - [facility] [address] [place], [place] [phone] Jorge Lim MD 111 [facility], [address] 2 [place] [phone] documented as of this encounter Visit Diagnoses Not on filedocumented in this encounter Care Teams Commercial Loan Coordinator Relationship Specialty Start Date End Date Diya Gifford MD [address] [place] [address] [address] [place], [place] [phone] PCP - General 07/26/19 documented as of this encounter
--- OUTSIDE RECORDS SUMMARY | 2024-02-23 17:19 | XMS_ITS | Encounter Summary ---
Author Organization [facility] Address [address] [place] [address] Care Team Providers Care Brush Or Broom Cutter Name Role Phone Diya Gifford MD Primary Care Provide r Dariana Juarez MD Unavailable Reason for Visit * Reason Comments Pacemaker/Device Check Medtronic Encounter Details Date Type Department Care Team (Late st Contact Info) Description 07/01/2022 14:00 EST Office Visit [facility] Cardiology Clinic [address] [place] [address] Dano Victoria, POWER SEWING MACHINE OPERATOR 130 [facility] [address] [address] Syncope, unspecified syncope type (Primary Dx) Social [...] Sign Reading Time Taken Comments Blood Pressure 132/82 07/01/2022 1332 EST Pulse 98 07/01/2022 1332 EST Temperature - - Respiratory Rate - - Oxygen Saturation 99% 07/01/2022 1332 EST Inhaled Oxygen Concentration - - Weight 91.6 kg (202 lb) 07/01/2022 1332 EST Height 152.4 cm (5') 07/01/2022 1332 EST Body Mass Index 39.45 07/01/2022 1332 EST documented in this encounter Functional Status Functional [...] as of this encounter Progress Notes * Dano Victoria NP - 07/01/2022 1400 EST Patient follows with Dr. Juarez for her Primary Cardiology care. She is here today for evaluation ofher Medtronic loop recorder inserted for syncope. [facility] Cardiology ILR Visit Glass Bead Maker: Medtronic Device Type: Implantable loop recorder Service: Office Visit Implant Date: 05/08/2022 Indication: Syncope Battery Longevity: good Symptom: 0 Tachycardia: 0 Bradycardia: 0 Pause: several AF: none AF burden: none AT/AF: Patient is taking daily N/A Impression: There is adequate battery longevity. The leads and device are functioning normally. Thepatient will follow up In office in 6 months. Will continue to follow device remotely every month. Dano Victoria NP * Inder Edouard - 07/01/2022 1400 EST 07/03/2022- [facility] to schedule 6 month device check * Inder Edouard - 07/01/2022 1400 EST Scheduled 01/06/2023 @1430 documented in this encounter Plan of Treatment Upcoming Encounters Date Type Department Care Team (Late st Contact Info) Description 03/04/2024 11:30 EDT Office Visit [facility] Interventional Pain [address] [place], [place] [phone] Percy Molina MD [address] [phone] 04/26/2024 9:15 EDT Office Visit [facility] Interventional Pain [address] [place], [place] [phone] Percy Molina MD [address] [phone] 01/25/2026 12:00 EDT Office Visit [facility] Hematology & Oncology - [address] [phone] Jorge Lim MD 111 [facility], Level [address] [place] [phone] documented as of this encounter Visit Diagnoses Diagnosis Syncope, unspecified syncope type- Primary documented in this encounter Care Teams Brush Or Broom Cutter Relationship Specialty Start Date End Date Diya Gifford MD [address] [place] [address] [address] [place], [place] [phone] PCP - General 07/26/19 Dariana Juarez MD [address] [place] [address]A [facility] [address] [place] [address] Consulting Clinician Cardiovascular Disease 02/06/22 documented as of this encounter
--- OUTSIDE RECORDS SUMMARY | 2024-02-23 17:19 | XMS_ITS | Encounter Summary ---
Author Organization [facility] Address [address] [place] [address] Care Team Providers Care Senior Insight Manager Name Role Phone Diya Gifford MD Primary Care Provide r Dariana Juarez MD Unavailable [phone] Encounter Details Date Type Department Care Team (Latest Contact Info) Description 05/06/2022 Travel Social History Tobacco Use Types Packs/Day [...] suspected to have Coronavirus/COVID-19? No / Unsure 05/06/2022 14:09 EST documented as of this encounter Functional Status [...] [facility] Interventional Pain [address] [place], [place] [phone] Percy Molina MD [address] [phone] 04/26/2024 9:15 EDT Office Visit [facility] Interventional Pain [address] [place], [place] [phone] Percy Molina MD [address] [place] [phone] 01/25/2026 12:00 EDT Office Visit [facility] Hematology & Oncology - [facility] [address] [place], [place] [phone] Jorge Lim MD 111 [facility], [address] [place] [phone] documented as of this encounter Visit Diagnoses Not on filedocumented in this encounter Care Teams Senior Insight Manager Relationship Specialty Start Date End Date Diya Gifford MD [address] [place] [address] [address] [place], [place] [phone] PCP - General 07/26/19 Dariana Juarez MD [address] [place] [address] [address] [place] [address] Consulting Clinician Cardiovascular Disease 02/06/22 documented as of this encounter
--- OUTSIDE RECORDS SUMMARY | 2024-02-23 17:19 | XMS_ITS | Encounter Summary ---
Author Organization [facility] Address [address] [place] [address] Care Team Providers Care Software Systems Architect Name Role Phone Diya Gifford MD Primary Care Provide r Dariana Juarez MD Unavailable [phone] Encounter Details Date Type Department Care Team (Latest Contact Info) Description 05/08/2022 Travel Social History Tobacco Use Types Packs/Day [...] suspected to have Coronavirus/COVID-19? No / Unsure 05/08/2022 12:35 EST documented as of this encounter Functional [...] Info) Description 03/04/2024 11:30 EDT Office Visit [facility] Interventional Pain [address] [place], [place] [phone] Percy Molina MD [address] [phone] 04/26/2024 9:15 EDT Office Visit [facility] Interventional Pain [address] [place], [place] [phone] Percy Molina MD [address] [place] [phone] 01/25/2026 12:00 EDT Office Visit [facility] Hematology & Oncology - [facility] [address] [place], [place] [phone] Jorge Lim MD 111 [facility], [address] [place] [phone] documented as of this encounter Visit Diagnoses Not on filedocumented in this encounter Care Teams Software Systems Architect Relationship Specialty Start Date End Date Diya Gifford MD [address] [place] [address] [address] [place], [place] [phone] PCP - General 07/26/19 Dariana Juarez MD [address] [place] [address] [address] [place] [address] Consulting Clinician Cardiovascular Disease 02/06/22 documented as of this encounter
--- OUTSIDE RECORDS SUMMARY | 2024-02-23 17:19 | XMS_ITS | Encounter Summary ---
Author Organization [facility] Address [address] [place] [address] Care Team Providers Care Mobile Marketing Manager Name Role Phone Diya Gifford MD Primary Care Provide r Dariana Juarez MD Unavailable [phone] Encounter Details Date Type Department Care Team (Late st Contact Info) Description 12/16/2021 Lab Requisition [facility] Pathology & Laboratory Medicine - [facility] [address] [place] [address] Outr Resulting Lab, Provider Social History Tobacco [...] Info) Description 03/04/2024 11:30 EDT Office Visit [facility] Interventional Pain [address] [place], [place] [phone] Percy Molina MD 62 [facility] [address] [place] [address] 04/26/2024 9:15 EDT Office Visit [facility] Interventional Pain [address] [place] [address] Percy Molina MD [address] [place] [address] [address] [place] [phone] 01/25/2026 12:00 EDT Office Visit [facility] Hematology & Oncology - [facility] [address] [place], [place] [phone] Jorge Lim MD 111 [facility], [facility], Level 2 [place] [phone] documented as of this encounter Procedures Procedure Name Priority Date/Time Associated Diagnosis Comments HIV 1/2 ANTIGEN AND ANTIBODY, 4TH GENERATION Routine 12/16/2021 11:00 EDT documented in this encounter Results * HIV 1/2 ANTIGEN AND ANTIBODY, 4TH GENERATION (12/16/2021 11:00 EDT) HIV 1 and 2 Antibody/p24 Antigen, 4th Generation Negative Negative 12/17/2021 10:27 EDT [facility] Comment:If acute HIV-1 infec tion is suspected in a high risk patient, submit plasma specimen for HIV-1 RNA quantitation test. Blood VENOUS BLOOD / Unknown 12/16/2021 11:00 EDT 12/16/2021 21:15 EDT Narrative [facility] - 12/17/2021 10:27 EDT Fourth Generation assay performed on the Siemens Centaur XPT. Provider Outr Resulting Lab IMMUNOLOGY A ND SEROLOGY ORDERABLES [facility] [address] [place] [address] documented in this encounter Visit Diagnoses Not on filedocumented in this encounter Care Teams Mobile Marketing Manager Relationship Specialty Start Date End Date Diya Gifford MD [address] [place] [address] PCP - General 07/26/19 Dariana Juarez MD [address] [place] [address] [address] [place] [phone] Consulting Clinician Cardiovascular Disease 02/06/22 documented as of this encounter
--- OUTSIDE RECORDS SUMMARY | 2024-02-23 17:19 | XMS_ITS | Encounter Summary ---
Author Organization [facility] Address [address] [place] [address] Care Team Providers Care Field Reporter Name Role Phone Diya Gifford MD Primary Care Provide r Dariana Juarez MD Unavailable [phone] Reason for Referral * (Routine/Next Available) - Authorization Not Required Specialty Diagnoses / Procedures Referred By Contac t Referred To Contact Diagnoses Encounter for loop recorder check Procedures CARDIAC IMPLANT CHECK - REMOTE MONITOR Dano Victoria NP [address] [facility] [address] [place] [address] [facility] Referral ID Status Reason Start Date Expiration Date Visits Requested Visits Authorized [id number] Authorization Not Required 2 18 18 * (Routine/Next Available) - Authorization Not Required Specialty Diagnoses / Procedures Referred By Contac t Referred To Contact Diagnoses Encounter for loop recorder check Procedures CARDIAC IMPLANT CHECK - IN CLINIC Dano Victoria NP [address] [facility] [address] [place] [address] [facility] Referral ID Status Reason Start Date Expiration Date Visits Requested Visits Authorized [id number] Authorization Not Required 2 18 18 Encounter Details Date Type Department Care Team (Late st Contact Info) Description 05/19/[address] [facility] [address] [place] [address] Jeet Rdoriguez RN Encounter for loop recorder check (Primary Dx) [...] Info) Description 03/04/2024 11:30 EDT Office Visit [facility] Interventional Pain [address] [place] [address] Percy Molina MD [address] [place], [place] [address] [place] [address] 04/26/2024 9:15 EDT Office Visit [facility] Interventional Pain [address] [place] [address] Percy Molina MD [address] [place], [place] [address]ey [facility] [address] [place] [address] 01/25/2026 12:[address] [facility] Cancer Center Hematology & Oncology - [facility] [address] [place], [place] [phone] Jorge Lim MD 111 [facility], Level [address] [place] [phone] Scheduled Orders Name Type Priority Associated Diagnoses Order Schedule CARDIAC IMPLANT CHECK - IN CLINIC Implantable Cardiac Device Routine Encounter for loop recorder check 18 Occurrences starting 05/19/2022 until 05/19/2025 CARDIAC IMPLANT CHECK - REMOTE MONITOR Implantable Cardiac Device Routine Encounter for loop recorder check 18 Occurrences starting 05/19/2022 until 05/19/2025, 7 completed documented as of this encounter Results * CARDIAC IMPLANT CHECK [...] of remotedownload. Dano Victoria NP Dano Victoria NP CV IMPLANTABLE CARDI AC DEVICE * CARDIAC IMPLANT CHECK - REMOTE - [...] remote download. Dano Victoria NP Dano Victoria NP CV IMPLANTABLE CARDI AC DEVICE * CARDIAC IMPLANT CHECK - REMOTE - [...] remote download. Dano Victoria NP Dano Victoria NP CV IMPLANTABLE CARDI AC DEVICE * CARDIAC IMPLANT CHECK - REMOTE - [...] remote download. Dano Victoria NP Dano Victoria NP CV IMPLANTABLE CARDI AC DEVICE * CARDIAC IMPLANT CHECK - REMOTE - [...] scanned documents for full details. Dano Victoria NP CV IMPLANTABLE CARDI AC DEVICE * CARDIAC IMPLANT CHECK - REMOTE - [...] remote download. Dano Victoria NP Dano Victoria NP CV IMPLANTABLE CARDI AC DEVICE * CARDIAC IMPLANT CHECK - REMOTE - LOOP RECORDER (ILR) (08/01/2022 16:49 EST) Anatomical Region Laterality Modality Device Narrative 08/01/2022 16:49 EST Remote transmission of ILR reviewed. Good battery status. No arrhythmias, no symptoms. See scanned documents for full details. Procedure Note Sandi Burgess NP - 08/01/2022 Remote transmission of ILR reviewed. Good battery status. No arrhythmias,no symptoms. See scanned documents for full details. Dano Victoria NP CV IMPLANTABLE CARDI AC DEVICE documented in this encounter Visit Diagnoses Diagnosis Encounter for loop recorder check- Primary Fitting and adjustment of other cardiac device documented in this encounter Care Teams Field Reporter Relationship Specialty Start Date End Date Diya Gifford MD 4 [facility] [address] [place], [place] [address] PCP - General 07/26/19 Dariana Juarez MD [address] [place] [phone] Consulting Clinician Cardiovascular Disease 02/06/22 documented as of this encounter
--- OUTSIDE RECORDS SUMMARY | 2024-02-23 17:19 | XMS_ITS | Encounter Summary ---
Author Organization [facility] Address [address] [place] [address] Care Team Providers Care Refinery Operator Gas Plant Name Role Phone Diya Gifford MD Primary Care Provide r Reason for Referral * Cardiology (Routine/Next Available) - Receiving Office to Obtain Authorization Specialty Diagnoses / Procedures Referred By Ar salinas Referred To Contact Diagnoses Arrhythmia Procedures EKG 12-LEAD Dariana Juarez MD [address] [place] [phone] Referral ID Status Reason Start Date Expiration Date Visits Requested Visits Authorized [id number] Receiving Office to Obtain Authorization 09/23/2021 1 1 Encounter Details Date Type Department Care Team (Late st Contact Info) Description 09/23/2021 Transcribe Orders [facility] Non-Invasive Cardiology - [address] [phone] Dariana Juarez MD [address] [place] [phone] Arrhythmia (Primary Dx) Social History Tobacco Use Types [...] on file documented as of this encounter Plan of Treatment Upcoming Encounters Date Type Department Care Team (Late st Contact Info) Description 03/04/2024 11:30 EDT Office Visit [facility] Interventional Pain [address] [place] [address] Percy Molina MD [address] [facility] [address] [place] [address] 04/26/2024 9:15 EDT Office Visit [facility] Interventional Pain [address] [place] [address] Percy Molina MD [address] [facility] [address] [place] [address] 01/25/2026 12:00 EDT Office Visit [facility] Hematology & Oncology - [address] [phone] Jorge Lim MD 111 [facility] 2 [place] [phone] documented as of this encounter Results * EKG 12-LEAD (09/23/2021 10:39 EDT) 09/23/2021 10:3 9 EDT Narrative [facility] EKG - 09/25/2021 11:15 EDT ? [facility] ? Test Date: ?2021-09-23 Pat Name: ? THONG HESTER ? Department: ?? [id number] ? Room: ? Gender: ? Female ? Electric Blanket Wirer: ?? : ?1975 ? Requested By: ZITA DEWITT D Order Number: [id number] ? Reading MD: ?? JONAH THORNTON DE SA MD ? Measurements Intervals ?[place] ? Rate: ? 93 ? P: ?65 NE: ? 141 ?QRS: ?55 QRSD: ? 86 ? T: ?49 QT: ? 350 ? QTc: ?437 ? Interpretive Statements SINUS RHYTHM Automated Interpretation. ??Provider Interpretation to follow. No previous ECG available for comparison I reviewed the tracing and have either agreed or edited the findings in this report. Electronically Signed On 09-25-2021 11:15:54 EDT by JONAH ANDERSEN SA, MD. Procedure Note Jonah Muñoz Sa, MD - 09/25/2021 [facility] Test Date: 2021-09-23 Pat Name: THONG HESTER Department: [id number] Room: Gender: Female Electric Blanket Wirer: : 1975 Requested By: ZITA West Order Number: [id number] Reading MD: JONAH HUSAIN Measurements Intervals [place] Rate: 93 P: 65 NE: 141 QRS: 55 QRSD: 86 T: 49 QT: 350 QTc: 437 Interpretive Statements SINUS RHYTHM Automated Interpretation. Provider Interpretation to follow. No previous ECG available for comparison I reviewed the tracing and have either agreed or edited the findings inthis report. Electronically Signed On 09-25-2021 11:15:54 EDT by JONAH CANSECO SA, MD. Dariana Juarez MD CARDIAC ECG ORDERABL ES [facility] EKG documented in this encounter Visit Diagnoses Diagnosis Arrhythmia Cardiac dysrhythmia, unspecified Arrhythmia- Primary Cardiac dysrhythmia, unspecified documented in this encounter Care Teams Refinery Operator Gas Plant Relationship Specialty Start Date End Date Diya Gifford MD [address] [place] [address] PCP - General 07/26/19 documented as of this encounter
--- OUTSIDE RECORDS SUMMARY | 2024-02-23 17:19 | XMS_ITS | Encounter Summary ---
Author Organization [facility] Address [address] [place] [address] Care Team Providers Care Counter Tender Name Role Phone Diya Gifford MD Primary Care Provide r Dariana Juarez MD Unavailable [phone] Reason for Visit * Reason Comments Other Wound check Encounter Details Date Type Department Care Team (Late st Contact Info) Description 06/16/2022 11:15 EST Nurse Only [facility] [address] [place] [address] Nurse, [facility] Syncope, unspecified syncope type (Primary Dx) Social [...] Sign Reading Time Taken Comments Blood Pressure 138/84 06/16/2022 1116 EST Pulse 76 06/16/2022 1116 EST Temperature 36.8 ??C (98.3 ??F) 06/16/2022 1116 EST Respiratory Rate - - Oxygen Saturation 99% 06/16/2022 1116 EST Inhaled Oxygen Concentration - - Weight - [...] as of this encounter Progress Notes * Dinora Way RN - 06/16/2022 1115 EST S/P Reveal implant with trace induration at site and slight erythema around site and induration noted. Small keloid to distal end. 2 scabbed areas on each breast non itching. No drainage noted is Afebrile. Dr. Chambers in to observe recommends keeping clean and dry and covered with bandaid for protection.Recheck in office in 10 days. Skin cleansed and bandaid applied. Review of skin care and to avoid touching area frequently. She is instructed to call if drainage noted, fever or increase erythema. She verbalizes understanding. documented in this encounter Miscellaneous Notes * Addendum Note - Dinora Way RN - 06/16/2022 1112 ESTAddended by: DINORA WAY on: 06/16/2022 11:42 Modules accepted: Level of Service documented in this encounter Plan of Treatment Upcoming Encounters Date Type Department Care Team (Late st Contact Info) Description 03/04/2024 11:30 EDT Office Visit [facility] Interventional Pain [address] [place] [address] Percy Molina MD [address] [place] [address] [address] [place] [address] 04/26/2024 9:15 EDT Office Visit [facility] Interventional Pain [address] [place] [address] Percy Molina MD 62 [facility] [address] [place] [address] 01/25/2026 12:00 EDT Office Visit [facility] Cancer Center Hematology & Oncology - [facility] [address] [place], [place] [phone] Jorge Lim MD 111 [facility], [address] [place] [phone] documented as of this encounter Visit Diagnoses Diagnosis Syncope, unspecified syncope type- Primary documented in this encounter Care Teams Counter Tender Relationship Specialty Start Date End Date Diya Gifford MD [address] [place] [phone] PCP - General 07/26/19 Dariana Juarez MD [address] [place] [address] [address] [place] [address] Consulting Clinician Cardiovascular Disease 02/06/22 documented as of this encounter
--- OUTSIDE RECORDS SUMMARY | 2024-02-23 17:19 | XMS_ITS | Encounter Summary ---
Author Organization [facility] Address [address] [place] [address] Care Team Providers Care Restaurant Hourly Team Member Name Role Phone Diya Gifford MD Primary Care Provide r Dariana Juarez MD Unavailable [phone] Reason for Visit * Reason Onset Date Comments Appointment Related 05/16/2022 Encounter Details Date Type Department Care Team (Late st Contact Info) Description 05/16/2022 Telephone [facility] [address] [place] [address] Dariana Juarez MD 111 [facility] 1 [place] [address] Appointment Related Social History Tobacco Use Types [...] No 10/31/2021 documented as of this encounter Miscellaneous Notes * Telephone Encounter - Inder Edouard - 05/16/2022 1620 EST Scheduled 11/17/2022 @1600 * Telephone Encounter - Inder Edouard - 05/16/2022 1358 EST Pt was in today for a nurses visit wound check s/p reveal implant. She has been scheduled with Dano in June for Dano to look at her device. Is there a time that you would like to f/u with her or should she just continue with Dano only moving forward? documented in this encounter Plan of Treatment Upcoming Encounters Date Type Department Care Team (Late st Contact Info) Description 03/04/2024 11:30 EDT Office Visit [facility] Interventional Pain [address] [place] [address] Percy Molina MD [address] [place] [address] [address] [place] [address] 04/26/2024 9:15 EDT Office Visit [facility] Interventional Pain [address] [place] [address] Percy Molina MD [address] [place] [address] [address] [place] [address] 01/25/2026 12:00 EDT Office Visit [facility] Hematology & Oncology - [facility] [address] [place], [place] [address] Jorge Lim MD 111 [facility], [address] [place] [phone] documented as of this encounter Visit Diagnoses Not on filedocumented in this encounter Care Teams Restaurant Hourly Team Member Relationship Specialty Start Date End Date Diya Gifford MD [address] [place] [address] PCP - General 07/26/19 Dariana Juarez MD [address] [place] [address] [phone] Consulting Clinician Cardiovascular Disease 02/06/22 documented as of this encounter
--- OUTSIDE RECORDS SUMMARY | 2024-02-23 17:19 | XMS_ITS | Encounter Summary ---
Author Organization [facility] Address [address] [place] [address] Care Team Providers Care Mechanic Sound Technician Name Role Phone Diya Gifford MD Primary Care Provide r Dariana Juarez MD Unavailable [phone] Reason for Referral * Office Procedure (Routine/Next Available) - Authorization Not Required Specialty Diagnoses / Procedures Referred By Contac t Referred To Contact Neurology Diagnoses Syncope, unspecified syncope type Procedures EEG Lobito Hogue MD [address] [facility] [place] [address] [facility] Eeg [address] [place] [address] Referral ID Status Reason Start Date Expiration Date Visits Requested Visits Authorized [id number] Authorization Not Required 02/13/2022 1 1 Reason for Visit * Office Procedure (Routine/Next Available) - Authorization Not Required Specialty Diagnoses / Procedures Referred By Contac t Referred To Contact Neurology Diagnoses Syncope, unspecified syncope type Procedures EEG Lobito Hogue MD [address] [facility] [place] [address] [facility] Eeg [address] [place] [address] Referral ID Status Reason Start Date Expiration Date Visits Requested Visits Authorized [id number] Authorization Not Required 02/13/2022 1 1 Encounter Details Date Type Department Care Team (Latest Contact Info) Description 03/07/2022 6:33 EDT - 03/07/2022 23:59 EDT Hospital Encounter [facility] EEG [address] [place] [address] Syncope, unspecified syncope type Discharge Disposition: Home [...] or Self Care documented in this encounter Procedure Notes * Mark Donaldson MD - 03/07/2022 0700 EDTAssociated Order(s): EEG [facility] Neurophysiology lab Electroencephalogram report Patient: Marilin Allen : 1975 Date of service: 03/07/22 Referring Physician: Lobito Hogue MD Study Number: 89 Clinical Indication: A 47-year-old woman with episodes of loss of consciousness potentially concerning for seizures. Medications: Current Outpatient Medications Medication ??? amitriptyline (ELAVIL) 100 mg tablet ??? amitriptyline (ELAVIL) 50 mg tablet ??? buPROPion (WELLBUTRIN SR) 150 mg SR tablet ??? cetirizine (ZYRTEC) 10 mg tablet ??? cyanocobalamin (VITAMIN B-12) 500 mcg tablet ??? cyclobenzaprine (FLEXERIL) 5 mg tablet ??? diclofenac sodium (VOLTAREN) 1 % gel ??? doxycycline (ADOXA) 100 mg tablet ??? doxycycline (VIBRAMYCIN) 100 mg capsule ??? fexofenadine (ZACHARY) 60 mg tablet ??? gabapentin (NEURONTIN) 400 mg capsule ??? hydroCHLOROthiazide (HYDRODIURIL) 12.5 mg tablet ??? hydrOXYzine (VISTARIL) 25 mg capsule ??? ibuprofen (MOTRIN) 600 mg tablet ??? Lactobacillus acidophilus (PROBIOTIC) 10 billion cell capsule ??? metoprolol XL (TOPROL-XL) 100 mg tablet ??? nystatin (MYCOSTATIN) 100,000 unit/mL suspension ??? omeprazole (PRILOSEC) 20 mg capsule ??? oxycodone-acetaminophen (PERCOCET) 5-325 mg per tablet ??? SETLAKIN 0.15 mg-30 mcg (91) per tablet ??? Sodium Fluoride (SF 5000 PLUS) 1.1 % cream ??? traZODone (DESYREL) 50 mg tablet ??? UNABLE TO FIND ??? venlafaxine (EFFEXOR-XR) 150 mg XR capsule ??? zolpidem (AMBIEN) 5 mg tablet No current facility-administered medications for this encounter. Technical Description: Standard EEG: An in-laboratory digital EEG is performed utilizing silver-silver chloride electrodesplaced according to the International 10-20 system of electrode placement. CPZ serves as the recording reference electrode. The following additional electrodes are also placed: ECG electrodes , anterior temporal electrodes The study begins at 0732 until 0759 with a total study duration of 27 minutes. During this study the following states were recorded: Wake, Drowsy, Hyperventilation, Photic stimulation Subject factors: Cooperative The patient and/or caregivers report:4.5 hours of sleep night before study; Estimated average 5.5 hours of sleep Previous EEG Study? No Findings: The background waking cerebral activity is symmetric, continuous and reactive, characterized by a posterior dominant rhythm of 11 Hz that is reactive to eye opening. The normal anterior posterior gradient is present. Diffuse low amplitude faster frequencies are symmetrically present. Hyperventilation is performed for just over 3 minutes and no abnormal responses are recorded. Photic stimulation with 10 second trains of stimulation by 10 second intervals without stimulation is performed at flash frequencies at intervals between 1 to 21 Hz. No abnormal responses are recorded. Drowsiness is recorded but no stage N2 sleep is attained. Single lead EKG reveals a regular rhythm. Impression: Normal EEG Clinical Correlation: No seizures or interictal epileptiform discharges are present to support the diagnosis of epilepsy. Absence of such discharges does not exclude the diagnosis of epilepsy. Mark Donaldson MD documented in this encounter Plan of Treatment Upcoming Encounters Date Type Department Care Team (Late st Contact Info) Description 03/04/2024 11:30 EDT Office Visit [facility] Interventional Pain [address] [place] [address] Percy Molina MD [address] [place] [phone] 04/26/2024 9:15 EDT Office Visit [facility] Interventional Pain [address] [place] [address] Percy Molina MD [address] [place] [address] 01/25/2026 12:00 EDT Office Visit [facility] Cancer Center Hematology & Oncology - [address] [phone] Jorge Lim MD [address] [place] [address], [facility] 2 [place] [address] documented as of this encounter Procedures Procedure Name Priority Date/Time Associated Diagnosis Comments EEG Routine 03/07/2022 7:00 EDT Syncope, unspecified syncope type documented in this encounter Results * EEG (03/07/2022 7:00 EDT) Narrative [facility] NEUROLOGY - 03/07/2022 7:00 EDT Mark Donaldson MD ? 03/11/2022 13:48 [facility] Neurophysiology lab Electroencephalogram report Patient: Marilin Allen : 1975 ?? Date of service: 03/07/22 Referring Physician: Lobito Hogue MD ? Study Number: 89 Clinical Indication: A 47-year-old woman with episodes of loss of consciousness potentially concerning for seizures. Medications: Current Outpatient Medications Medication ? ? amitriptyline (ELAVIL) 100 mg tablet ? ? amitriptyline (ELAVIL) 50 mg tablet ? ? buPROPion (WELLBUTRIN SR) 150 mg SR tablet ? ? cetirizine (ZYRTEC) 10 mg tablet ? ? cyanocobalamin (VITAMIN B-12) 500 mcg tablet ? ? cyclobenzaprine (FLEXERIL) 5 mg tablet ? ? diclofenac sodium (VOLTAREN) 1 % gel ? ? doxycycline (ADOXA) 100 mg tablet ? ? doxycycline (VIBRAMYCIN) 100 mg capsule ? ? fexofenadine (ZACHARY) 60 mg tablet ? ? gabapentin (NEURONTIN) 400 mg capsule ? ? hydroCHLOROthiazide (HYDRODIURIL) 12.5 mg tablet ? ? hydrOXYzine (VISTARIL) 25 mg capsule ? ? ibuprofen (MOTRIN) 600 mg tablet ? ? Lactobacillus acidophilus (PROBIOTIC) 10 billion cell capsule ? ? metoprolol XL (TOPROL-XL) 100 mg tablet ? ? nystatin (MYCOSTATIN) 100,000 unit/mL suspension ? ? omeprazole (PRILOSEC) 20 mg capsule ? ? oxycodone-acetaminophen (PERCOCET) 5-325 mg per tablet ? ? SETLAKIN 0.15 mg-30 mcg (91) per tablet ? ? Sodium Fluoride (SF 5000 PLUS) 1.1 % cream ? ? traZODone (DESYREL) 50 mg tablet ? ? UNABLE TO FIND ? ? venlafaxine (EFFEXOR-XR) 150 mg XR capsule ? ? zolpidem (AMBIEN) 5 mg tablet No current facility-administered medications for this encounter. Technical Description: Standard EEG: An in-laboratory digital EEG is performed utilizing silver-silver chloride electrodes placed according to the International 10-20 system of electrode placement. ??CPZ serves as the recording reference electrode. The following additional electrodes are also placed: ECG electrodes , anterior temporal electrodes ?? The study begins at 0732 until 0759 with a total study duration of 27 minutes. During this study the following states were recorded: Wake, Drowsy, Hyperventilation, Photic stimulation Subject factors: Cooperative The patient and/or caregivers report:4.5 hours of sleep night before study; Estimated average 5.5 hours of sleep Previous EEG Study? No Findings: The background waking cerebral activity is symmetric, continuous and reactive, characterized by a posterior dominant rhythm of 11 Hz that is reactive to eye opening. ??The normal anterior posterior gradient is present. ??Diffuse low amplitude faster frequencies are symmetrically present. Hyperventilation is performed for just over 3 minutes and no abnormal responses are recorded. Photic stimulation with 10 second trains of stimulation by 10 second intervals without stimulation is performed at flash frequencies at intervals between 1 to 21 Hz. No abnormal responses are recorded. Drowsiness is recorded but no stage N2 sleep is attained. Single lead EKG reveals a regular rhythm. Impression: Normal EEG Clinical Correlation: No seizures or interictal epileptiform discharges are present to support the diagnosis of epilepsy. Absence of such discharges does not exclude the diagnosis of epilepsy. Mark Donaldson MD Lobito Hogue MD NEUROLOGY ORDERABLES [facility] NEUROLOGY documented in this encounter Visit Diagnoses Diagnosis Syncope, unspecified syncope type documented in this encounter Care Teams Mechanic Sound Technician Relationship Specialty Start Date End Date Diya Gifford MD [address] [facility] [address] [place] [address] PCP - General 07/26/19 Dariana Juarez MD [address] [place] [address] [address] [place] [phone] Consulting Clinician Cardiovascular Disease 02/06/22 documented as of this encounter
--- OUTSIDE RECORDS SUMMARY | 2024-02-23 17:19 | XMS_ITS | Encounter Summary ---
Author Organization [facility] Address [address] [place] [address] Care Team Providers Care Stone Unloader Name Role Phone Diya Gifford MD Primary Care Provide r Reason for Visit * Cardiology (Routine/Next Available) - Authorization Not Required Specialty Diagnoses / Procedures Referred By Contshala salinas Referred To Contact Diagnoses Syncope, unspecified syncope type Palpitations Procedures HOLTER MONITOR SCAN - 48 Diya Gifford MD 4 [facility] [address] [place] [address] Referral ID Status Reason Start Date Expiration Date Visits Requested Visits Authorized [id number] Authorization Not Required 11/18/2021 1 1 Encounter Details Date Type Department Care Team (Latest Contact Info) Description 11/18/2021 10:23 EDT - 11/18/2021 23:59 EDT Hospital Encounter [facility] Non-Invasive Cardiology [address] [place] [address] Syncope, unspecified syncope type; Palpitations Discharge Disposition: Home or Self Care Social [...] suspected to have Coronavirus/COVID-19? No / Unsure 10/31/2021 9:39 EDT documented as of this encounter Functional Status [...] mouth at bedtime as needed. 07/29/2010 03/19/2022 azithromycin (ZITHROMAX) 250 mg tablet Take 2 tablets (500mg) by mouth on day 1, followed by 1 tablet (250mg) by mouth once daily on days 2 through 5. 6 Tab 08/01/2016 12/03/2021 Bacitracin 500 unit/gram ointment Apply pea-sized amount to inside of both nostrils twice daily for 2 weeks. 14 g 1 08/01/2016 12/03/2021 buPROPion (WELLBUTRIN SR) 150 mg SR tablet Take 150 mg by mouth 2 times daily. 07/27/2021 03/05/2023 cyclobenzaprine (FLEXERIL) 5 mg tablet Take 5 mg by mouth 3 times daily. 03/19/2022 doxycycline (ADOXA) 100 mg tablet Take 100 mg by mouth daily. Reported on 07/08/2016 05/09/2022 hydroCHLOROthiazide (HYDRODIURIL) 12.5 mg tablet Take 12.5 mg by mouth daily. 03/19/2022 HYDROmorphone (DILAUDID) 2 mg tablet Take 1 Tab by mouth every 4 hours. Daily Max: 12 mg 20 Tab 08/01/2016 12/03/2021 methylPREDNISolone (MEDROL, CEDRIC,) 4 mg tablet follow package directions 1 Pack 08/01/2016 12/03/2021 nystatin (MYCOSTATIN) 100,000 unit/mL suspension TAKE 5ML BY MOUTH FOUR TIMES A DAY SWISH & SWALLOW UNTIL SYMPTOMS RESOLVE 08/07/2021 03/19/2022 ondansetron (ZOFRAN-ODT) 8 mg disintegrating tablet Take 1 Tab by mouth every 8 hours as needed for Nausea. 10 Tab 08/01/2016 12/03/2021 UNABLE TO FIND Control 1 pil /day 03/19/2022 zolpidem (AMBIEN) 5 mg tablet Take 5 mg by mouth at bedtime. 03/19/2022 documented as of this encounter Discharge Disposition Disposition Code Departure Means Destination Home or Self Alf documented in this encounter Plan of Treatment Upcoming Encounters Date Type Department Care Team (Late st Contact Info) Description 03/04/2024 11:30 EDT Office Visit [facility] Interventional Pain [address] [place], [place] [phone] Percy Molina MD 62 [facility] [address] [place] [phone] 04/26/2024 9:15 EDT Office Visit [facility] Interventional Pain [address] [place] [address] Percy Molina MD 62 [facility] [address] [place] [phone] 01/25/2026 12:00 EDT Office Visit [facility] Hematology & Oncology - [address] [phone] Jorge Lim MD 111 [facility] [address] 2 [place] [phone] documented as of this encounter Procedures Procedure Name Priority Date/Time Associated Diagnosis Comments HOLTER MONITOR SCAN - 48 Routine 11/18/2021 10:23 EDT Syncope, unspecified syncope type Palpitations documented in this encounter Results * HOLTER MONITOR SCAN - 48 (11/18/2021 10:23 EDT) Diya Gifford MD CARDIAC SERVI STEPHANIE ORDERABLES DEVICECHECK documented in this encounter Visit Diagnoses Diagnosis Syncope, unspecified syncope type Palpitations documented in this encounter Care Teams Stone Unloader Relationship Specialty Start Date End Date Diya Gifford MD [address] [place] [address] PCP - General 07/26/19 documented as of this encounter
--- OUTSIDE RECORDS SUMMARY | 2024-02-23 17:19 | XMS_ITS | Encounter Summary ---
Author Organization [facility] Address [address] [place] [address] Care Team Providers Care Police Or Patrol Park Officer Name Role Phone Diya Gifford MD Primary Care Provide r Dariana Juarez MD Unavailable [phone] Reason for Visit * Reason Comments Hypertension Encounter Details Date Type Department Care Team (Late st Contact Info) Description 02/07/2022 10:00 EDT Office Visit [facility] [address] [place] [address] Dariana Juarez MD 111 [facility] 1 [place] [address] Syncope and collapse (Primary Dx) Social History Tobacco Use Types [...] Sign Reading Time Taken Comments Blood Pressure 108/70 02/07/2022 0938 EDT Pulse 81 02/07/2022 0938 EDT Temperature - - Respiratory Rate - - Oxygen Saturation 100% 02/07/2022937 EDT Inhaled Oxygen Concentration - - Weight 90.9 kg (200 lb 8 oz) 02/07/2022 09 EDT Height 149.9 cm (4' 11) 02/07/2022 0938 EDT Body Mass Index 40.5 02/07/2022937 EDT documented in this encounter Functional Status [...] Progress Notes * Dariana Juarez MD - 02/07/2022 1000 EDT [facility] Cardiology Office Visit Subjective: Chief Complaint(s): Hypertension HPI: 47-year-old female with history of hypertension who presents for evaluation of recurrent syncope. Since our last visit, she underwent Preventice 30 day monitoring. She wore it for approximately 18 days. She had no syncopal episodes during that time. She did, however, have palpitations that she noted and did not correlate with any arrhythmias. She notes 2 episodes of whole body weakness since we last saw each other. No clear loss of consciousness. 1 occurred when she grabbed the top of a golf cart to get into it and noted her entire body slumped over and she lost muscle tone. The second episode happened last week where she was vacuuming out her car and she lost strength in her entire body. [facility] is set to have a neurology appointment on . Cardiac History She notes these episodes started in July 2021 she has had 4 total. The original episode occurred at around 2 AM when she got up in the middle of the night-she syncopized at that time without prodrome. Went to the emergency room at [facility] was admitted for monitoring. Echocardiogram at that time was normal. ECG was normal. She was discharged with plan for Holter monitoring. She was unable to tolerate the Holter due to reaction to the adhesives-but no arrhythmias for the short time itwas worn. Since that time she has had [...] Outpatient Medications Marked as Taking for the 02/07/22 encounter (Office Visit) with Dejan Juarez MD Medication Sig ??? amitriptyline (ELAVIL) 100 mg tablet 100 mg daily. ??? buPROPion (WELLBUTRIN SR) 150 mg SR tablet Take 150 mg by mouth 2 times daily. ??? cetirizine (ZYRTEC) 10 mg tablet Take 10 mg by mouth if needed. Reported on 07/08/2016 ??? cyanocobalamin (VITAMIN B-12) 500 mcg tablet Take 500 mcg by mouth daily. ??? cyclobenzaprine (FLEXERIL) 5 mg tablet Take 5 mg by mouth 3 times daily. ??? diclofenac sodium (VOLTAREN) 1 % gel Apply topically 2 times daily. ??? doxycycline (VIBRAMYCIN) 100 mg capsule Take by mouth daily. ??? fexofenadine (ZACHARY) 60 mg tablet Take 60 mg by mouth 2 times daily. ??? gabapentin (NEURONTIN) 400 mg capsule Take 800 mg by mouth daily. ??? hydrOXYzine (VISTARIL) 25 mg capsule Take 25 mg by mouth 2 times daily. ??? ibuprofen (MOTRIN) 600 mg tablet Take 600 mg by mouth every 6 hours as needed for Pain. ??? Lactobacillus acidophilus (PROBIOTIC) 10 billion cell capsule Take by mouth daily. ??? metoprolol XL (TOPROL-XL) 100 mg tablet Take 100 mg by mouth daily. ??? omeprazole (PRILOSEC) 20 mg capsule Take 20 mg by mouth daily. ??? oxycodone-acetaminophen (PERCOCET) 5-325 mg per tablet Take 2 Tabs by mouth every 8 hours as needed for Pain. ??? SETLAKIN 0.15 mg-30 mcg (91) per tablet Take 1 Tablet by mouth daily. ??? traZODone (DESYREL) 50 mg tablet ??? UNABLE TO FIND Control 1 pil /day ??? venlafaxine (EFFEXOR-XR) 150 mg XR capsule Take 75 mg by mouth daily. I have reviewed current problem list and current medications. ROS: Review of Systems Constitutional: Positive for malaise/fatigue. Respiratory: Positive for shortness of breath. Cardiovascular: Positive for PND. Musculoskeletal: Positive for joint pain and neck pain. Neurological: Positive for loss of consciousness and weakness. Objective: Examination: Vitals: BP 108/70 (BP Cuff Location: Right arm, BP Patient Position: Sitting, BP Cuff Sizes: Adult, large) Pulse 81 Ht (!) 149.9 cm (59) Wt 90.9 kg (200 lb 8 oz) SpO2 100% BMI 40.50 kg/m?? Body mass index is 40.5 kg/m??. Physical Exam Constitutional: Appearance: Normal appearance. Cardiovascular: Rate and Rhythm: Normal rate and regular rhythm. Heart sounds: No murmur heard. No gallop. Pulmonary: Effort: Pulmonary effort is normal. No respiratory distress. Breath sounds: Normal breath sounds. No wheezing. Musculoskeletal: Right lower leg: No edema. Left lower leg: No edema. Neurological: Mental Status: She is alert. Labs: No results found for: CHOL, HDL, LDL, LDLBASE, TRIG, CHOLHDL No results found for: BUN, CREATININE, K, MG, CA, WBC, HGB, PLT, TSH No results found for: HGBA1C No results found for: NTBNP Assessment & Plan: 47-year-old female with history of hypertension who presents for evaluation of recurrent syncope. Recurrent syncope: Potential for arrhythmogenic syncope given lack of prodrome. May be an orthostatic component, however 1 episode occurred while already standing. It appears she has episodes of truesyncope and also episodes where she does not lose consciousness and has a loss of tone in her entire body. These are very worrisome to her as well. Does appear to have a family history of cardiac disease, but it sounds more like early coronary disease than unexplained arrhythmia genic . ECG with normal QTc. Have advised her to abstain from driving. TTE from [place] was normal. She had no syncopal episodes while wearing the preventice monitor. I advised her that if neurology does not wish for further work-up, that we can discuss loop recorder. However would like neurology input as certainly has some atypical features to her story (whole body tone changes, dropping objects, etc). Return to clinic in 1 month I spent a total of 30 minutes on the date of this encounter as indicated in the above progress note. Dariana Juarez MD documented in this encounter Plan of Treatment Upcoming Encounters Date Type Department Care Team (Late st Contact Info) Description 03/04/2024 11:30 EDT Office Visit [facility] Interventional Pain [address] [place] [address] Percy Molina MD 62 [facility] [address] [place] [phone] 04/26/2024 9:15 EDT Office Visit [facility] Interventional Pain [address] [place] [address] Percy Molina MD 62 [facility] [address] [place] [phone] 01/25/2026 12:00 EDT Office Visit [facility] Hematology & Oncology - [facility] [address] [place], [place] [phone] Jorge Lim MD 111 [facility], [facility], [address] [place] [phone] documented as of this encounter Visit Diagnoses Diagnosis Syncope and collapse- Primary documented in this encounter Historical Medications * This list may reflect changes made after this encounter. Medication Sig Dispensed Refills Start Date End Date cyanocobalamin (VITAMIN B-12) 500 mcg tablet Take 1 Tablet by mouth daily. added in this encounter Care Teams Police Or Patrol Park Officer Relationship Specialty Start Date End Date Diya Gifford MD [address] [place] [address] [address] [place] [address] PCP - General 07/26/19 Dariana Juarez MD [address] [place] [address] [address] [place] [phone] Consulting Clinician Cardiovascular Disease 02/06/22 documented as of this encounter
--- OUTSIDE RECORDS SUMMARY | 2024-02-23 17:19 | XMS_ITS | Encounter Summary ---
Author Organization [facility] Address [address] [place] [address] Care Team Providers Care Iron Carrier Name Role Phone Diya Gifford MD Primary Care Provide r Reason for Visit * Cardiology (Routine/Next Available) - Authorization Not Required Specialty Diagnoses / Procedures [facility] Referred To Contact Diagnoses Syncope, unspecified syncope type Procedures CARDIAC EVENT MONITOR Dariana Juarez MD 111 [facility] 1 [place] [address] [facility] Referral ID Status Reason Start Date Expiration Date Visits Requested Visits Authorized [id number] Authorization Not Required 12/03/2021 1 1 Encounter Details Date Type Department Care Team (Latest Contact Info) Description 12/03/2021 9:[address] [facility] Card[facility] Clinic [address] [place] [id number] Syncope, unspecified syncope type Social History Tobacco Use Types Packs/Day Years [...] as of this encounter Miscellaneous Notes * Result Encounter Note - Dariana Juarez MD - 12/03/2021 0900 EDT Please let Ms. Allen know her heart rhythm was normal on her cardiac monitoring. No evidence an abnormal heart rhythm is playing a role in her syncopal episodes. We can discuss further/next steps atour upcoming appointment. documented in this encounter Plan of Treatment Upcoming Encounters Date Type Department Care Team (Late st Contact Info) Description 03/04/2024 11:30 EDT Office Visit [facility] Interventional Pain [address] [place] [address] Percy Molina MD [address] [place] [phone] 04/26/2024 9:15 EDT Office Visit [facility] Interventional Pain [address] [place] [address] Percy Molina MD [address] [place] [phone] 01/25/2026 12:00 EDT Office Visit [facility] Center Hematology & Oncology - [address] [phone] Jorge Lim MD [address] [place] [address], [facility] [place], [address] [place] [phone] documented as of this encounter Procedures Procedure Name Priority Date/Time Associated Diagnosis Comments 30 DAY SEA AIR LAND OFFICER Routine 12/03/2021 9:41 EDT Syncope, unspecified syncope type documented in this encounter Results * CARDIAC EVENT MONITOR (12/03/2021 9:41 EDT) Anatomical Region Laterality Modality Holter Narrative 01/07/2022 8:55 EDT ?? No tachy- or bradyarrhythmias 1. Analysis time 18 d 13 h 2. Baseline sinus rhythm with normal intervals 3. Average heart rate 84 bpm, range 66 - 122 bpm 4. Rare PVC's. No [place] 5. Rare PAC's. No SVT or atrial fibrillation 6. No critical pauses or higher degree heart block 7. 28 patient events which did not correlated with arrhythmias Dariana Juarez MD CARDIAC SERVICES ORD ERABLES documented in this encounter Visit Diagnoses Diagnosis Syncope, unspecified syncope type documented in this encounter Care Teams Iron Carrier Relationship Specialty Start Date End Date Diya Gifford MD 4 [facility] [address] [place] [address] PCP - General 07/26/19 documented as of this encounter
--- OUTSIDE RECORDS SUMMARY | 2024-02-23 17:19 | XMS_ITS | Encounter Summary ---
Author Organization [facility] Address [address] [place] [address] Care Team Providers Care Electron Gun Assembler Name Role Phone Diya Gifford MD Primary Care Provide r Encounter Details Date Type Department Care Team (Latest Contact Info) Description 10/31/2021 Travel Social History Tobacco Use Types Packs/Day [...] Info) Description 03/04/2024 11:30 EDT Office Visit [facility] Interventional Pain [address] [place] [address] Percy Molina MD [address] [facility] [address] [place] [phone] 04/26/2024 9:15 EDT Office Visit [facility] Interventional Pain [address] [place] [address] Percy Molina MD [address] [facility] [address] [place] [address] 01/25/2026 12:00 EDT Office Visit [facility] Hematology & Oncology - [address] [phone] Jorge Lim MD 111 [facility] [address] [place] [phone] documented as of this encounter Visit Diagnoses Not on filedocumented in this encounter Care Teams Electron Gun Assembler Relationship Specialty Start Date End Date Diya Gifford MD [address] [place] [address] [address] [place], [place] [phone] PCP - General 07/26/19 documented as of this encounter
--- OUTSIDE RECORDS SUMMARY | 2024-02-23 17:19 | XMS_ITS | Encounter Summary ---
Author Organization [facility] Address [address] [place] [address] Care Team Providers Care Siding Stapler Name Role Phone Diya Gifford MD Primary Care Provide r Reason for Visit * Cardiology (Routine/Next Available) - Specialty Report Received Specialty Diagnoses / Procedures Referred By Ar salinas Referred To Contact Nuclear Medicine Diagnoses Syncope, unspecified syncope type Procedures NM CARD SPECT NUCLEAR STRESS Dariana Juarez MD 111 [facility] 1 [place] [address] [facility] Referral ID Status Reason Start Date Expiration Date V isits Requested Visits Authorized [id number] Specialty Report Received 12/03/2021 1 1 Encounter Details Date Type Department Care Team (Latest Contact Info) Description 12/25/2021 7:14 EDT - 12/25/2021 23:[address] [facility] Non-Invasive Cardiology [address] [place] [address] Discharge Disposition: Home or Self Care Social [...] Code Departure Means Destination Home or Self Senior Living documented in this encounter Plan of Treatment Upcoming Encounters Date Type Department Care Team (Late st Contact Info) Description 03/04/2024 11:30 EDT Office Visit [facility] Interventional Pain [address] [place] [address] Percy Molina MD [address] [place] [phone] 04/26/2024 9:15 EDT Office Visit [facility] Interventional Pain [address] [place], [place] [phone] Percy Molina MD [address] [place] [phone] 01/25/2026 12:00 EDT Office Visit [facility] Hematology & Oncology - [address] [phone] Jorge Lim MD [address] [place] [address], [facility], [address] [place] [phone] documented as of this encounter Procedures Procedure Name Priority Date/Time Associated Diagnosis Comments NM CARD SPECT PHARM MULT STUDIES COMPLETE Routine 12/25/2021 10:35 EDT Syncope, unspecified syncope type documented in this encounter Visit Diagnoses Not on filedocumented in this encounter Administered Medications Inactive Administered Medications - up to 3 most recent administrations Medication Order MAR Action Action Date Dose Rate Site regadenoson (LEXISCAN) injection syringe 0.4 mg 0.4 mg, intravenous, NOW X1, 1 dose, On Thu12/25/21 at 1015, Routine Given 12/25/2021 8:53 EDT 0.4 mg documented in this encounter Care Teams Siding Stapler Relationship Specialty Start Date End Date Diya Gifford MD [address] [place] [address] PCP - General 07/26/19 documented as of this encounter
--- OUTSIDE RECORDS SUMMARY | 2024-02-23 17:19 | XMS_ITS | Encounter Summary ---
Author Organization [facility] Address [address] [place] [address] Care Team Providers Care Teacher Advisor Name Role Phone Diya Gifford MD Primary Care Provide r Dariana Juarez MD Unavailable [phone] Reason for Visit * (Routine/Next Available) - Authorization Not Required Specialty Diagnoses / Procedures Referred By Ar salinas Referred To Contact Diagnoses Encounter for loop recorder check Procedures CARDIAC IMPLANT CHECK - IN CLINIC [place], JUAN [address] [facility] [address] [place] [address] [facility] Referral ID Status Reason Start Date Expiration Date Visits Requested Visits Authorized [id number] Authorization Not Required 2 18 18 Encounter Details Date Type Department Care Team (Latest Contact Info) Description 07/01/2022 14:00 EST Ancillary Procedure [facility] Cardiology Clinic [address] [place] [address] Encounter for loop recorder check Social History [...] Description 03/04/2024 11:30 EDT Office Visit [facility] Interventional Pain [address] [place] [address] Percy Molina MD [address] [place] [address] [place] [phone] 04/26/2024 9:15 EDT Office Visit [facility] Interventional Pain [address] [place], [place] [phone] Percy Molina MD [address] [phone] 01/25/2026 12:00 EDT Office Visit [facility] Hematology & Oncology - [facility] [address] [place], [place] [phone] Jorge Lim MD [address] [place] [address], [address] [place] [address] documented as of this encounter Visit Diagnoses Diagnosis Encounter for loop recorder check Fitting and adjustment of other cardiac device documented in this encounter Orders Imaging Orders Without Results Count Last Order ed Date First Ordered Date CARDIAC IMPLANT CHECK - IN CLINIC 1 023 documented in this encounter Care Teams Teacher Advisor Relationship Specialty Start Date End Date Diya Gifford MD [address] [place] [address] PCP - General 07/26/19 Dariana Juarez MD [address] [place] [address] [phone] Consulting Clinician Cardiovascular Disease 02/06/22 documented as of this encounter
--- OUTSIDE RECORDS SUMMARY | 2024-02-23 17:19 | XMS_ITS | Encounter Summary ---
Author Organization [facility] Address [address] [place] [address] Care Team Providers Care Bar Turner Name Role Phone Diya Gifford MD Primary Care Provide r Reason for Referral * Cardiology (Routine/Next Available) - Authorization Not Required Specialty Diagnoses / Procedures Referred By Contac brad Referred To Contact Diagnoses Syncope and collapse Palpitations Procedures HOLTER MONITOR - 48 Diya Gifford MD 4 [address] [place] [address] [facility] [place]erral ID Status Reason Start Date Expiration Date Visits Requested Visits Authorized [id number] Authorization Not Required 11/04/2021 1 1 Encounter Details Date Type Department Care Team (Latest Contact Info) Description 11/04/2021 Transcribe Orders [facility] Admitting [address] [place] [address] Diya Gifford MD 4 [address] [place] [address] Syncope and collapse (Primary Dx); Palpitations Social History Tobacco Use Types Packs/Day Years [...] [facility] Interventional Pain [address] [place] [address] Percy Molina MD 62 [facility] [address] [place] [address] 04/26/2024 9:15 EDT Office Visit [facility] Interventional Pain [address] [place], [place] [id number] Percy Molina MD 62 [facility] [address] [place] [address] 01/25/2026 12:00 EDT Office Visit [facility] Hematology & Oncology - [address] [id number] Jorge Lim MD [address] [place] [address], [facility], [address] [place] [address] documented as of this encounter Results * HOLTER MONITOR - 48 (11/14/2021 9:50 EDT) Anatomical Region Laterality Modality Holter Narrative 11/18/2021 13:02 EDT Indication: Palpitations, Syncope Min: 65 bpm Av bpm Max: 119 bpm 1. Baseline normal sinus rhythm 2. Rare supraventricular ectopy (0.0%): Rare PACs. No atrial fibrillation. No SVT. 3. Rare ventricular ectopy (0.0%): Single PVC. No ventricular tachycardia. 4. No pauses > 3.0 seconds 5. No symptoms Diya Gifford MD CARDIAC SERVI STEPHANIE ORDERABLES documented in this encounter Visit Diagnoses Diagnosis Syncope and collapse- Primary Palpitations Syncope and collapse Palpitations documented in this encounter Care Teams Bar Turner Relationship Specialty Start Date End Date Diya Gifford MD 4 [facility] [address] [place] [address] PCP - General 07/26/19 documented as of this encounter
--- OUTSIDE RECORDS SUMMARY | 2024-02-23 17:19 | XMS_ITS | Encounter Summary ---
Author Organization [facility] Address [address] [place] [address] Care Team Providers Care Paper Machine Back Tender Name Role Phone Diya Gifford MD Primary Care Provide r Dariana Juarez MD Unavailable [phone] Reason for Visit * Reason Comments Follow-up Syncope and collapse Encounter Details Date Type Department Care Team (Late st Contact Info) Description 03/19/2022 14:00 EDT Office Visit [facility] - [facility] [address] [place], [place] [id number] Dariana Juarez MD 111 [facility] 1 [place] [address] Syncope and collapse (Primary Dx) [...] Sign Reading Time Taken Comments Blood Pressure 118/74 03/19/2022 1402 EDT Pulse 110 03/19/2022 1402 EDT Temperature - - Respiratory Rate 12 03/19/2022 1402 EDT Oxygen Saturation 96% 03/19/2022 1402 EDT Inhaled Oxygen Concentration - - Weight [...] Progress Notes * Dariana Juarez MD - 03/19/2022 1400 EDT [facility] Cardiology Office Visit Subjective: Chief Complaint(s): Follow-up (Syncope and collapse) HPI: 47-year-old female with history of hypertension who presents for evaluation of recurrent syncope. Since our last visit, she had another episode of syncope- she was in a room in her house hanging out with her grandchildren. She is not able to provide many details of prior to her episode. However, she notes her grandchild found her on the floor. No prodromal symptoms she can identify. She continuesto note fits where she has whole body shaking and weakness in her muscle. She saw neurology, EEG was negative. Cardiac History She notes these episodes started in July 2021 she has had 4 total. The original episode occurred at around 2 AM when she got up in the middle of the night-she syncopized at that time without prodrome. Went to the emergency room at [facility] was admitted for monitoring. Echocardiogram at that [...] Outpatient Medications Marked as Taking for the 03/19/22 encounter (Office Visit) with Dejan Juarez MD [...] Take 500 mcg by mouth daily. ??? [DISCONTINUED] cyclobenzaprine (FLEXERIL) 5 mg tablet Take 5 [...] Tablet by mouth daily. ??? Sodium Fluoride (SF 5000 PLUS) 1.1 % cream Place onto teeth. ??? [...] consciousness and weakness. Objective: Examination: Vitals: BP 118/74 (BP Cuff Location: Left arm, BP Patient Position: Sitting, BP Cuff Sizes: Adult, regular) Pulse (!) 110 Resp 12 SpO2 96% There is no height or weight on file to calculate BMI. Labs: No results found for: CHOL, HDL, LDL, LDLBASE, TRIG, CHOLHDL No results found for: BUN, CREATININE, K, MG, CA, WBC, HGB, PLT, TSH No results found for: HGBA1C No results found for: NTBNP Assessment & Plan: 47-year-old female with history of hypertension who presents for evaluation of recurrent syncope. Recurrent syncope: Potential for arrhythmogenic syncope given lack of prodrome. It appears she has episodes of true syncope and also episodes where she does not lose consciousness and has a loss of tone in her entire body (which she identifies as fits.) Does appear to have a family history of cardiac disease, but it sounds more like early coronary disease than unexplained arrhythmogenic . ECG with normal QTc. Have advised her to abstain from driving. TTE from [facility] was normal. She had no syncopal episodes while wearing the preventice monitor. I do feel longer term monitoringto evaluate for arrhythmogenic causes would be helpful. We discussed the insertion of a loop monitor and she was amenable. She should continue her evaluation with neurology as well. Return to clinic based on Reveal results I spent a total of 30 minutes on the date of this encounter as indicated in the above progress note. Dariana Juarez MD documented in this encounter Plan of Treatment Upcoming Encounters Date Type Department Care Team (Late st Contact Info) Description 03/04/2024 11:30 EDT Office Visit [facility] Interventional Pain [address] [place] [address] Percy Molina MD [address] [facility] [address] [place] [address] 04/26/2024 9:15 EDT Office Visit [facility] Interventional Pain [address] [place] [address] Percy Molina MD [address] [place] [address] [address] [place] [address] 01/25/2026 12:00 EDT Office Visit [facility] Hematology & Oncology - [address] [id number] Jorge Lim MD [address] [place] [address] [address] [place] [phone] documented as of this encounter Visit Diagnoses Diagnosis Syncope and collapse- Primary documented in this encounter Discontinued Medications Medication Sig Discontinue Reason Start Date End Da te amitriptyline (ELAVIL) 50 mg tablet Take 50 mg by mouth at bedtime as needed. Dose adjustment 07/29/2010 03/19/2022 cyclobenzaprine (FLEXERIL) 5 mg tablet Take 5 mg by mouth 3 times daily. Therapy completed 03/19/2022 hydroCHLOROthiazide (HYDRODIURIL) 12.5 mg tablet Take 12.5 mg by mouth daily. Therapy completed 03/19/2022 nystatin (MYCOSTATIN) 100,000 unit/mL suspension TAKE 5ML BY MOUTH FOUR TIMES A DAY SWISH & SWALLOW UNTIL SYMPTOMS RESOLVE Therapy completed 08/07/2021 03/19/2022 UNABLE TO FIND Control 1 pil /day Alternate therapy 03/19/2022 zolpidem (AMBIEN) 5 mg tablet Take 5 mg by mouth at bedtime. Alternate therapy 03/19/2022 documented as of this encounter Care Teams Paper Machine Back Tender Relationship Specialty Start Date End Date Diya Gifford MD [address] [place] [address] [address] [place], [place] [address] PCP - General 07/26/19 Dariana Juarez MD [address] [place] [address] [address] [place] [address] Consulting Clinician Cardiovascular Disease 02/06/22 documented as of this encounter
--- OUTSIDE RECORDS SUMMARY | 2024-02-23 17:19 | XMS_ITS | Encounter Summary ---
Author Organization [facility] Address [address] [place] [address] Care Team Providers Care Elevator Service Mechanic Name Role Phone Diya Gifford MD Primary Care Provide r Reason for Visit * Reason Comments Pain Pain Pain Encounter Details Date Type Department Care Team (Late st Contact Info) Description 10/31/2021 9:30 EDT Office Visit [facility] Orthopedics & Spine Medicine [address] [place] [address] Zina Thompson PA-C [address] [facility] [address] [place], [place] [id number] Left cervical radiculopathy (Primary Dx); Cervical pain Social History Tobacco Use Types Packs/Day Years [...] No 10/31/2021 documented as of this encounter Patient Instructions * Patient Instructions* Zina Thompson PA-C - 10/31/2021 9:30 EDT Left sided disc/osteophyte complex causing narrowing at C6-7 on the left. Recommend an epidural steroid injection. Referral placed to [facility] Would like to do a follow up (telemed is fine) 3-4 weeks after injection. documented in this encounter Progress Notes * Zina Thompson PA-C - 10/31/2021 0930 EDT History of Present Illness: This is a 46-year-old female with history of HTN, history of cleft palate, TMJ, seasonal allergies, history of Lyme disease, obesity, depression, anxiety, PTSD, chronic pain, and persistent insomnia presenting for reevaluation of left-sided neck pain. At her last office visit with me on 10/08/2021, Marilin complained of pain in the left side of her neck, intrascapular area with some radiation into the left arm and numbness and paresthesias involving her hand globally. She did report a sense of subjective weakness in the arm, some vague balance issues stating that she has fallen down in the driveway several times over the past year. Pain aggravated by almost all activities, and the only comfortable position feet she finds is to walk with her left arm draped over her head. Patient reportedly had been following with Ortho most recently with suspicion that it was coming from her shoulder. Further review of her history, patient had actually seen Dr. Mike Coker in the past on 01/31/2020. At that time, he had reviewed plain films and a nerve conduction study that had no evidence of radiculopathy, and he had suggested a work hardening program. At our last office visit, I recommended that we check a cervical spine MRI and have her follow-up to review, and consider possible epidural if it makes sense. Today, Marilin presents reporting no change in her symptoms of left-sided neck pain into the intrascapular area and down her left arm with global symptoms of the hand. She is here to review her cervical spine MRI. Conservative Treatment: Amitriptyline, oxycodone in the past, ibuprofen, Tylenol No formal physical therapy Acupuncture and chiropractic manipulation Review of Systems: As per HPI. I reviewed medications, allergies, medical, surgical and social history with the patient. Physical Examination: There were no vitals taken for this visit. Well developed, overweight 46-year-old female, in no acute distress, appearing frustrated Breathing non-labored Skin is warm and dry Patient stands with normal upright posture Ambulates with a normal gait Image Review: Cervical spine MRI dated 10/22/2021 shows some straightening of normal cervical lordosis and multilevel degenerative disc changes, most advanced at C6-7 where she has at least moderate spinal stenosis, and considerable left-sided foraminal stenosis. At C5-6, the patient has a central to the right disc bulge that abuts the anterior thecal sac, and does appear to cause some mild foraminal stenosis is present can tell. Cervical spine plain films from 10/08/21 show some mild facet arthropathy more advanced on the left at C3-4. Straightening normal cervical lordosis. Degenerative disc changes most notable at C6-7 patient maintains fairly good alignment with forward flexion and extension. Assessment: 1. Neck pain with left cervical radiculopathy 2. C6-7 left-sided disc with foraminal stenosis Marilin Allen is a pleasant relatively straightforward 46-year-old female presenting for reevaluation of her left-sided neck and arm symptoms that are clinically consistent with a cervical radiculopathy, though of unclear distribution. We reviewed her cervical spine MRI that does show a [id number] disc osteophyte complex that results in severe foraminal stenosis, and certainly could explainher symptoms. At this point, patient has gone through physical therapy, acupuncture, chiropractics,has had Ortho sports evaluations, shoulder injections, etc. and has had no significant relief over the years. I think would be reasonable to try C6-7 epidural steroid injection and see how her symptoms respond, and discussed with the patient that we will go from there. At length discussed what an epidural entails, and that I would like to follow-up with her approximately 3 to 6 weeks after the injection is done to see how she responds. Patient is amenable to this plan. We did discuss other types of pain management, including a home exercise program from physical therapy, massage, hypnosis, psy chotherapy. For now we will start with the epidural and go from there. Patient encouraged to call with any questions, concerns, or worsening of condition. I spent a total of 30 minutes on the date of this encounter meeting with the patient and reviewing documentation/coordinating care as described in the above note. Plan: 1. C6-7 DARREN at [facility] [place] 2. Follow-up 3 to 6 weeks after injection This document was produced using Browsy dictation. Please excuse any grammatical or verbal errors. documented in this encounter Plan of Treatment Upcoming Encounters Date Type Department Care Team (Late st Contact Info) Description 03/04/2024 11:30 EDT Office Visit [facility] Interventional Pain [address] [place] [address] Percy Molina MD [address] [place] [address] 04/26/2024 9:15 EDT Office Visit [facility] Interventional Pain [address] [place] [address] Percy Molina MD [address] [place] [address] [address] [place] [address] 01/25/2026 12:00 EDT Office Visit [facility] Hematology & Oncology - [address] [address] Jorge Lim MD [address] [place] [address] 2 [place] [address] documented as of this encounter Visit Diagnoses Diagnosis Left cervical radiculopathy- Primary Brachial neuritis or radiculitis nos Cervical pain Cervicalgia documented in this encounter Historical Medications * This list may reflect changes made after this encounter. Medication Sig Dispensed Refills Start Date End Date amitriptyline (ELAVIL) 100 mg tablet 1 Tablet daily. 09/19/2021 SETLAKIN 0.15 mg-30 mcg (91) per tablet Take 1 Tablet by mouth daily. 07/30/2021 doxycycline (VIBRAMYCIN) 100 mg capsule Take by mouth daily. 10/09/2021 nystatin (MYCOSTATIN) 100,000 unit/mL suspension TAKE 5ML BY MOUTH FOUR TIMES A DAY SWISH & SWALLOW UNTIL SYMPTOMS RESOLVE 08/07/2021 03/19/2022 buPROPion (WELLBUTRIN SR) 150 mg SR tablet Take 150 mg by mouth 2 times daily. 07/27/2021 03/05/2023 added in this encounter Care Teams Elevator Service Mechanic Relationship Specialty Start Date End Date Diya Gifford MD 4 [facility] [address] [place] [address] PCP - General 07/26/19 documented as of this encounter
--- OUTSIDE RECORDS SUMMARY | 2024-02-23 17:19 | XMS_ITS | Encounter Summary ---
Author Organization [facility] Address [address] [place] [address] Care Team Providers Care Pulp House Supervisor Name Role Phone Diya Gifford MD Primary Care Provide r Dariana Juarez MD Unavailable [phone] Encounter Details Date Type Department Care Team (Late st Contact Info) Description 12/17/2021 Lab Requisition [facility] Pathology & Laboratory Medicine - [facility] [address] [place] [address] Outr Resulting Lab, Provider Social History Tobacco [...] [facility] Interventional Pain [address] [place], [place] [phone] Percy Molina MD [address] [place] [address] [address] [place] [address] 04/26/2024 9:15 EDT Office Visit [facility] Interventional Pain [address] [place] [address] Percy Molina MD [address] [place] [address] [address] [place] [address] 01/25/2026 12:00 EDT Office Visit [facility] Hematology & Oncology - [facility] [address] [place], [place] [phone] Jorge Lim MD 111 [facility], [facility] 2 [place] [phone] documented as of this encounter Procedures Procedure Name Priority Date/Time Associated Diagnosis Comments FOLATE Routine 12/16/2021 11:00 EDT documented in this encounter Results * FOLATE (12/16/2021 11:00 EDT) Folate 10.6 See Note ng/mL 12/17/2021 19:01 EDT [facility] Comment: Reference Ranges for Folate: Deficient: ?< 3.4 ng/mL Indeterminate: ??3.4 - 5.4 ng/mL Normal: ? > 5.4 ng/mL The results of this assay can be falsely elevated due to the consumption of Biotin. Blood VENOUS BLOOD / Unknown 12/16/2021 11:00 EDT 12/17/2021 17:23 EDT Provider Outr Resulting Lab CHEMISTRY & BLOOD GAS ORDERABLES [facility] [address] [place] [address] documented in this encounter Visit Diagnoses Not on filedocumented in this encounter Care Teams Pulp House Supervisor Relationship Specialty Start Date End Date Diya Gifford MD [address] [place] [address] [address] [place] [address] PCP - General 07/26/19 Dariana Juarez MD [address] [place] [address] [address] [place] [phone] Consulting Clinician Cardiovascular Disease 02/06/22 documented as of this encounter
--- OUTSIDE RECORDS SUMMARY | 2024-02-23 17:19 | XMS_ITS | Encounter Summary ---
Author Organization [facility] Address [address] [place] [address] Care Team Providers Care Scan Coordinator Name Role Phone Diya Gifford MD Primary Care Provide r Dariana Juarez MD Unavailable [phone] Reason for Referral * Office Procedure (Routine/Next Available) - Authorization Not Required Specialty Diagnoses / Procedures Referred By Ar salinas Referred To Contact Neurology Diagnoses Syncope, unspecified syncope type Procedures EEG Lobito Hogue MD [address] [phone] [facility] Eeg [address] [place] [address] Referral ID Status Reason Start Date Expiration Date Visits Requested Visits Authorized [id number] Authorization Not Required 02/13/2022 1 1 Reason for Visit * Reason Comments New Patient Visit * Consult, Test and Treat (Routine) - Receiving Office to Obtain Authorization Specialty Diagnoses / Procedures Referred By Ar salinas Referred To Contact Neurology Diagnoses Other abnormal findings on diagnostic imaging of central nervous system Syncope and collapse Procedures CONSULT NEUROLOGY Diya Gifford MD [address] [place] [address] [address] [place] [address] [facility] Neu[facility] [address] [place] [address] Referral ID Status Reason Start Date Expiration Date Visits Requested Visits Authorized [id number] Receiving Office to Obtain Authorization 1 1 Encounter Details Date Type Department Care Team (Late st Contact Info) Description 02/13/2022 16:00 EDT Office Visit [facility] [address] [place] [address] Lobito Hogue MD [address] [facility] [address] [phone] Syncope, unspecified syncope type (Primary Dx) Social [...] Sign Reading Time Taken Comments Blood Pressure 130/72 02/13/2022 1548 EDT Pulse 98 02/13/2022 1548 EDT Temperature - - Respiratory Rate 16 02/13/2022 1548 EDT Oxygen Saturation 100% 02/13/2022 1548 EDT Inhaled Oxygen Concentration - - Weight [...] this encounter Patient Instructions * Patient Instructions* Lobito Hogue MD - 02/13/2022 16:00 EDT 1) Routine EEG. 2) Please follow up with Dr. Hogue in six months. documented in this encounter Progress Notes * Lobito Hogue MD - 02/13/2022 1600 EDT [facility] PATIENT NAME: Marilin Aleln PATIENT : 1975 PCP: Diya Gifford DATE OF SERVICE: 02/13/2022 CHIEF COMPLAINT: Abnormal MRI; syncope and collapse HISTORY The patient is a 47 year-old woman who presents to neurology clinic. The first episode of syncope occurred at the end of June,. It was 2:00 a.m. and the patient was in bed. The patient's intent was to get out of bed and the moment the patient's feet hit the floor, there was loss of muscle tone and loss of consciousness. The duration that the patient had loss of consciousness was ne patricia made clear. When the patient awakened, a lamp was on the floor. There was mild to moderate post-event confusion. There was no bowel or bladder incontinence. There was no blood in the patient's mouth or pain on the inside of the patient's mouth. The patient could not use her legs because of bilateral lower extremity weakness and the patient pulled herself up into her bed using the strength of her arms. The patient called to her son, the son called 911, EMT's transported the patient to [facility]. The patient got an MRI brain revealing small vessel disease. I explained to the patient the benign nature of the small vessel disease. The patient has had at least three more episodes of syncope. The latest episode was last week. The patient related that she was leaning forward, vacuumingout her care, when, without aura, the patient fell forward with her head striking the gear shifter,and this happened not because of loss of consciousness but because of bilateral lower extremity weakness. However, some of her episodes have been characterized by overt syncope. Cardiology workup hasincluded echo, stress test, thirty-day monitor, all unrevealing. Patient Active Problem List Diagnosis ??? Unilateral complete cleft palate with cleft lip ??? Refractory obstruction of nasal airway ??? TMJ syndrome ??? Dysfunction of right eustachian tube ??? Obesity ??? Hypertension ??? History of Lyme disease ??? Cystic acne ??? Fatty liver disease, nonalcoholic ??? Stress ??? Pharyngitis, acute ??? Persistent insomnia ??? Major depression, recurrent (HCC) ??? Anxiety ??? Complication of bone graft ??? Headache ??? Ulnar nerve entrapment at elbow, left ??? Chronic left shoulder pain ??? Facial pain ??? Chronic pain ??? PTSD (post-traumatic stress disorder) ??? Bilateral lower extremity edema ??? Chronic diarrhea ??? Seasonal allergic rhinitis ??? Skin tag ??? Carpal tunnel syndrome of left wrist ??? Numbness and tingling in left arm ??? Skin lesion of face Past Medical History: Diagnosis Date ??? Cleft palate No past surgical history on file. FAMILY HISTORY family history is not on file. SOCIAL HISTORY reports that she has never smoked. She has never used smokeless tobacco. She reports that she does not drink alcohol. ALLERGIES Allergies Allergen Reactions ??? Claritin [Loratadine] Other (See Comments) Feet and hand blisters ??? Erythromycin GI upset ??? Penicillins Hives Hives as a child, pt states she's had PCN since without problems. ??? Shellfish Containing Products ??? Sulfa (Sulfonamide Antibiotics) Nausea And Vomiting ??? Topamax [Topiramate] Other (See Comments) Visual disturbance ??? Tylenol-Codeine #3 [Acetaminophen-Codeine] Nausea And Vomiting CURRENT MEDICATIONS Outpatient Medications Marked as Taking for the 02/13/22 encounter (Office Visit) with Lobito Hogue MD Medication Sig ??? amitriptyline (ELAVIL) 100 mg tablet 100 mg daily. ??? amitriptyline (ELAVIL) 50 mg tablet Take 50 mg by mouth at bedtime as needed. ??? buPROPion (WELLBUTRIN SR) 150 mg SR [...] capsule Take 75 mg by mouth daily. PHYSICAL EXAMINATION BP 130/72 Pulse 98 Resp 16 SpO2 100% The patient's head was normocephalic and atraumatic. The patient's eyes were conjugate. The patient's oropharynx was clear without edema, erythema or exudates. The patient's skin was without rashes. NEUROLOGIC EXAM The patient was oriented to person, place and time and the patient was pleasant. Cranial nerves II through XII were intact. Motor strength testing revealed 5/5 strength in all extremities. Sensation was intact grossly to light touch. Cerebellar testing revealed no dysmetria on [id number]. Tremor was absent. ASSESSMENT: Syncope PLAN: 1) I believe the patient may benefit from longer cardiac monitoring, but I will leave the decision to the business continuity global director who has more knowledge to make that decision, because I am not a business continuity global director. 2) Routine EEG. If the routine EEG is negative and cardiac testing is unrevealing to that point, then I will consider an ambulatory EEG. 3) We will get a follow up MRI brain in six months to surveille for interval progression of small vessel disease. 4) RTC six months. Lobito Hogue MD I spent a total of fifty minutes on the date of this encounter meeting with the patient and reviewing documentation/coordinating care as described in the above note. documented in this encounter Plan of Treatment Upcoming Encounters Date Type Department Care Team (Late st Contact Info) Description 03/04/2024 11:30 EDT Office Visit [facility] Interventional Pain [address] [place] [address] Percy Molina MD [address] [place] [address] [place] [phone] 04/26/2024 9:15 EDT Office Visit [facility] Interventional Pain [address] [place] [address] Percy Molina MD [address] [place] [address] [place] [phone] 01/25/2026 12:00 EDT Office Visit [facility] Hematology & Oncology - [address] [phone] Jorge Lim MD [address] [place] [address], [facility] [address] [place] [phone] documented as of this encounter Results * EEG (03/07/2022 7:00 EDT) Narrative [facility] - 03/07/2022 7:00 EDT Mark Donaldson [...] Donaldson MD Lobito Hogue MD NEUROLOGY ORDERABLES Performing Organization Address City/State/[facility] Co de Phone Number [facility] documented in this encounter Visit Diagnoses Diagnosis Syncope, unspecified syncope type- Primary Syncope, unspecified syncope type documented in this encounter Care Teams Scan Coordinator Relationship Specialty Start Date End Date Diya Gifford MD [address] [place] [address] PCP - General 07/26/19 Dariana Juarez MD [address] [place] [address]- [address] [place] [phone] Consulting Clinician Cardiovascular Disease 02/06/22 documented as of this encounter
--- OUTSIDE RECORDS SUMMARY | 2024-02-23 17:19 | XMS_ITS | Encounter Summary ---
Author Organization [facility] Address [address] [place] [address] Care Team Providers Care Panel Cutter Name Role Phone Diya Gifford MD Primary Care Provide r Encounter Details Date Type Department Care Team (Late st Contact Info) Description 12/03/2021 Orders Only [facility] - [facility] Nuclear Medicine [address] [place] [id number] Campbell Mccallum Social History Tobacco Use Types Packs/Day Years [...] Info) Description 03/04/2024 11:30 EDT Office Visit [facility] Interventional Pain [address] [place] [address] Percy Molina MD [address] [facility] [address] [place] [phone] 04/26/2024 9:15 EDT Office Visit [facility] Interventional Pain [address] [place], [place] [phone] Percy Molina MD [address] [facility] [address] [place] [address] 01/25/2026 12:00 EDT Office Visit [facility] Hematology & Oncology - [address] [phone] Jorge Lim MD [address] [place] [address] [address] [place] [phone] documented as of this encounter Visit Diagnoses Not on filedocumented in this encounter Care Teams Panel Cutter Relationship Specialty Start Date End Date Diya Gifford MD [address] [place] [address] [address] [place], [place] [phone] PCP - General 07/26/19 documented as of this encounter
--- OUTSIDE RECORDS SUMMARY | 2024-02-23 17:19 | XMS_ITS | Encounter Summary ---
Author Organization [facility] Address [address] [place] [address] Care Team Providers Care Multicultural Services Librarian Name Role Phone Diya Gifford MD Primary Care Provide r Dariana Juarez MD Unavailable [phone] Reason for Visit * Reason Onset Date Comments Other 06/25/2022 Wound re check Encounter Details Date Type Department Care Team (Late st Contact Info) Description 06/25/2022 Telephone [facility] [address] [place] [address] Dano Victoria, CONTINUOUS MINER OPERATOR [address] [facility] [address] [phone] Other (Wound re check) Social History Tobacco Use Types Packs/Day Years [...] * Telephone Encounter - Inder Edouard - 07/02/2022 1021 EST Scheduled 09/10/2022 @1400 * Telephone Encounter - Inder Edouard - 07/01/2022 1448 EST Pt was in today (07/01/2022) for s/p implant device check and wound check. Upon check out Dano martines aware Pt has already scheduled appt with you on 11/17/2022 and wanted me to check with you to seeif you wanted to see Pt sooner than that due to recent implant * Telephone Encounter - Kathy Mcgee, TATUM - 06/25/2022 1631 EST Spoke with patient, she feels the incision looks good. She developed sore throat and cough/congestion and felt she should come in today. She will come in on 07/01 as scheduled. Instructed patient to continue to monitor the incision and report changes or concerns to the office. She agrees. * Telephone Encounter - Chandu Mills - 06/25/2022 0916 EST Pt called, states not feeling well and cancelled wound recheck with RN for 06/26/22. Pt has OV withAndrea 07/01/22 and would like to wait to have wound rechecked. Pt states that the wound looks prettygood to her, but she still has the retained stitch. I let her know that I would send a message to the nurses to make sure that there are no concerns with waiting until 07/01/22 for recheck. documented in this encounter Plan of Treatment Upcoming Encounters Date Type Department Care Team (Late st Contact Info) Description 03/04/2024 11:30 EDT Office Visit [facility] Interventional Pain [address] [place], [place] [phone] Percy Molina MD [address] [phone] 04/26/2024 9:15 EDT Office Visit [facility] Interventional Pain [address] [place] [address] Percy Molina MD [address] [place] [phone] 01/25/2026 12:00 EDT Office Visit [facility] Hematology & Oncology - [facility] [address] [place], [place] [phone] Jorge Lim MD [address] [facility], [address] [place] [phone] documented as of this encounter Visit Diagnoses Not on filedocumented in this encounter Care Teams Multicultural Services Librarian Relationship Specialty Start Date End Date Diya Gifford MD [address] [place] [address] [address] [place], [place] [phone] PCP - General 07/26/19 Dariana Juarez MD [address] [place] [address] [address] [place] [phone] Consulting Clinician Cardiovascular Disease 02/06/22 documented as of this encounter
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
--- OUTSIDE RECORDS SUMMARY | 2024-02-23 17:19 | XMS_ITS | Encounter Summary ---
Author Organization [facility] Address [address] [place] [address] Care Team Providers Care Roof Truss Builder Name Role Phone Diya Gifford MD Primary Care Provide r Dariana Juarez MD Unavailable [phone] Reason for Visit * Reason Comments Follow-up Wound check SP Valente perkins implant Encounter Details Date Type Department Care Team (Late st Contact Info) Description 05/16/2022 13:30 EST Nurse Only [facility] Card[facility] Clinic [address] [place] [address] Nurse, [facility] Syncope and collapse (Primary Dx) Social History [...] 12:35 EST documented as of this encounter Last Filed Vital Signs Vital Sign Reading Time Taken Comments Blood Pressure 126/78 05/16/2022 1333 EST Pulse 88 05/16/2022 1333 EST Temperature 36.8 ??C (98.3 ??F) 05/16/2022 1333 EST Respiratory Rate - - Oxygen Saturation 98% 05/16/2022 1333 EST Inhaled Oxygen Concentration - - Weight [...] as of this encounter Progress Notes * Carmen Way RN - 05/16/2022 1330 EST Here for sound check s/p Reveal implant. Denies any fevers, no erythema no edema Is Afebrile. Has small 3 mm clear suture material from incision site. Dr. Chambers in to see. Suture area cleansed with alcohol clipped at skin level with sterile scissors and bandaid in place.Provided with additional bandaid to keep covered until healed. She is instructed to call with any questions or concerns. Reviewed use of remote transmitter and she verbalizes understanding. documented in this encounter Plan of Treatment Upcoming Encounters Date Type Department Care Team (Late st Contact Info) Description 03/04/2024 11:[address] [facility] Interventional [place] [address] Percy Molina MD [address] [place] [address] [address] [place] [phone] 04/26/2024 9:[address] [facility] Interventional [place] [address] Percy Molina MD [address] [place] [address] [address] [place] [address] 01/25/2026 12:00 EDT Office Visit [facility] Hematology & Oncology - [facility] [address] [place], [place] [phone] Jorge Lim MD [address] [facility], [address] [place] [phone] documented as of this encounter Visit Diagnoses Diagnosis Syncope and collapse- Primary documented in this encounter Care Teams Roof Truss Builder Relationship Specialty Start Date End Date Diya Gifford MD [address] [place] [address] [address] [place], [place] [address] PCP - General 07/26/19 Dariana Juarez MD [address] [place] [address] [address] [place] [phone] Consulting Clinician Cardiovascular Disease 02/06/22 documented as of this encounter
--- OUTSIDE RECORDS SUMMARY | 2024-02-23 17:19 | XMS_ITS | Encounter Summary ---
Author Organization [facility] Address [address] [place] [address] Care Team Providers Care Flavor Extractor Name Role Phone Diya Gifford MD Primary Care Provide r Reason for Referral * Radiology Services (Routine/Next Available) - Closed Specialty Diagnoses / Procedures Referred By Contac t Referred To Contact Radiology Diagnoses Cervical pain Left arm pain Procedures MR CERVICAL SPINE WO CONTRAST Zina Thompson PA-C [address] [address] [facility] Referral ID Status Reason Start Date Expiration Date Visits Re quested Visits Authorized [id number] Closed 10/08/2021 1 1 Reason for Visit * Radiology Services (Routine/Next Available) - Closed Specialty Diagnoses / Procedures Referred By Ar salinas Referred To Contact Radiology Diagnoses Cervical pain Left arm pain Procedures MR CERVICAL SPINE WO CONTRAST Zina Thompson PA-C [address] [address] [facility] Referral ID Status Reason Start Date Expiration Date Visits Re quested Visits Authorized [id number] Closed 10/08/2021 1 1 Encounter Details Date Type Department Care Team (Latest Contact Info) Description 10/22/2021 5:59 EDT - 10/22/2021 23:59 EDT Hospital Encounter [facility] MRI [address] [place] [address] Cervical pain; Left arm pain Discharge Disposition: Home or Self Care Social [...] 14:02 EDT documented as of this encounter Medications at [...] Info) Description 03/04/2024 11:30 EDT Office Visit [facility] Interventional Pain [address] [place], [place] [phone] Percy Molina MD [address] [place] [address] [address] [place] [phone] 04/26/2024 9:15 EDT Office Visit [facility] Interventional Pain [address] [place] [address] Percy Molina MD [address] [place] [address] [place] [phone] 01/25/2026 12:00 EDT Office Visit [facility] Hematology & Oncology - [facility] [address] [place], [place] [phone] Jorge Lim MD [address] [facility], [facility], [address] [place] [phone] documented as of this encounter Procedures Procedure Name Priority Date/Time Associated Diagnosis Comments MR CERVICAL SPINE WO CONTAST Routine 10/22/2021 6:50 EDT Cervical pain Left arm pain documented in this encounter Results * MR CERVICAL SPINE [...] severe left foraminal stenosis. Zina Thompson PA-C IMG MRI ORDERABLE S documented in this encounter Visit Diagnoses Diagnosis Cervical pain Cervicalgia Left arm pain Pain in limb documented in this encounter Care Teams Flavor Extractor Relationship Specialty Start Date End Date Diya Gifford MD [address] [address] PCP - General 07/26/19 documented as of this encounter
--- OUTSIDE RECORDS SUMMARY | 2024-02-23 17:19 | XMS_ITS | Encounter Summary ---
Author Organization [facility] Address [address] [place] [address] Care Team Providers Care Photographic Equipment Inspector Name Role Phone Diya Gifford MD Primary Care Provide r Dariana Juarez MD Unavailable [phone] Reason for Visit * Auth/Cert Specialty Diagnoses / Procedures Referred By Ar salinas Referred To Contact Diagnoses Syncope and collapse Syncope and collapse [R55] Procedures IA INSERTION SUBQ CARDIAC RHYTHM MONITOR W/PRGRMG INSERTION, IVORY POLISHER, SUBCUTANEOUS, WITH PROGRAMMING Referral ID Status Reason Start Date Expiration Date Visits Re quested Visits Authorized [id number] 1 1 Encounter Details Date Type Department Care Team (Late st Contact Info) Description 05/08/2022 13:45 EST - 05/08/2022 14:45 EST Surgery [facility] [place] Room [address] [place] [address] Seferino Chambers MD [address] [place] [address] [place] [phone] INSERTION, IVORY POLISHER, SUBCUTANEOUS, WITH PROGRAMMING [19928 (CPT??)] Surgery Details Date/Time Status Location OR Service Patient Class Case Cl ass Case Type Trauma Case? 05/08/22 1345 Posted [facility] [place] [address] [place] [address] Outpatient Surgery H - Elective Panel 1 Procedure LRB Anes Op Region Wound Class Comments INSERTION, IVORY POLISHER, SUBCUTANEOUS, WITH PROGRAMMING N/A Local (Nurse-Monitored) Class I/ Clean Surgeon Surgeon Role Service Panel Seferino Chambers MD Primary Cardiovascular 1 Special Needs SF documented in this encounter Social History Tobacco [...] Reading Time Taken Comments Blood Pressure 108/70 05/08/2022 1445 EST Pulse 91 05/08/2022 1445 EST Temperature 37 ??C (98.6 ??F) 05/08/2022 1235 EST Respiratory Rate 13 05/08/2022 1445 EST Oxygen Saturation 100% 05/08/2022 1445 EST Inhaled Oxygen Concentration - - Weight 91.7 kg (202 lb 3.2 oz) 05/08/[address] Height 152.4 cm (5') 05/08/2022 1235 EST Body Mass Index 39.49 05/08/2022 1235 EST documented in this encounter Functional Status [...] No 10/31/2021 documented as of this encounter Discharge Instructions * Discharge Instructions* Seferino Chambers MD - 05/08/2022 14:56 EST See separate instruction sheet. * Attachments The following attachments cannot be sent through Care Everywhere. * Implantable Sticker Operator: Post-op (Macedonian) documented in this encounter Medications at Time [...] capsule Take 75 mg by mouth daily. buPROPion (WELLBUTRIN SR) 150 mg SR tablet Take 150 mg by mouth 2 times daily. 07/27/2021 03/05/2023 doxycycline (ADOXA) 100 mg tablet Take 100 mg by mouth daily. Reported on 07/08/2016 05/09/2022 documented as of this encounter Discharge Disposition Disposition Code Departure Means Destination Home or Self Half-Way documented in this encounter Nursing Notes * Luis Boyce RN - 05/08/2022 1546 EST Pt very overwhelmed with procedure and the continued work-up. Family Partner from [employer] explained how to set up device at home. I re enforced his teaching. Pt. Stated: I don't like bothering people. refer to calling MD with each episode. I emphasized that the loop implant is far this very purpose and she needed to call with each episode. documented in this encounter OR Notes * OR Surgeon - Seferino Chambers MD - 05/08/2022 1400 EST INSERTION, IVORY POLISHER, SUBCUTANEOUS, WITH PROGRAMMING Operative Note Date: 05/08/2022 Location: [facility] [place] Name: Marilin Allen, : 1975, Diagnosis Pre-Op Diagnosis Codes: * Syncope and collapse [R55] Post-op Diagnosis * Syncope and collapse [R55] Procedures * INSERTION, IVORY POLISHER, SUBCUTANEOUS, WITH PROGRAMMING Surgeons * Seferino Chambers MD - Primary Procedure Summary Anesthesia: Local (Nurse-Monitored) ASA: ASA status not filed in the log. Estimated Blood Loss: <10ml Total IV Fluids: 0 mL LDAs: Full Thickness 08/01/16 Surgical Inner Nose (Active) Full Thickness 08/01/16 Surgical Left Ear (Active) Wound 05/08/22 Incision Chest (Active) Implants Type Name Action Serial No. ICM SYSTEM REVEAL LINQ II - [id number] Implanted [id number] Staff: Systems Test Analyst: Corinne Conrad RN Scrub Person: Keshawn Felix Indications: Marilin Allen is an 47 y.o. female who is having surgery for Syncope and collapse [R55] Procedure Details: The patient was seen [...] concurred with the proposed plan, giving informed consent.?? The site of surgery was properly noted/marked if necessary per policy. The patient has been actively warmed in preoperative area. Preope rative antibiotics are not indicated. Venous thrombosis prophylaxis are not indicated. Findings: ICM implant without problems. Good EKG signal. Procedure in detail: After informed consent was obtained in the preprocedure area, the patient was brought to the procedure room in the fasting state. A timeout was performed. The patient was preppedand draped in the usual sterile fashion. The left parasternal area around the lead V2 area was locally anesthetized. An 8 mm incision was made with the incision tool and a 3 mm diameter device tunnelwas preshaped. The injection device preloaded with the Reveal LINQ2 monitor was inserted into the previously formed tunnel, turned over 180 degrees and the monitoring device was injected without problems. Hemostasis was achieved with digital compression. The EKG signal was very good and the incision was closed with a single horizontal 4-0 Biosyn suture. The wound was covered with Dermabond skin glue. Implanted hardware: [employer] Reveal LINQ2 ICM, model number [id number] Sensing sensitivity: 0.035 mV VT zone: Above 182 bpm, 16 beats. Bradycardia zone: Below 30 bpm, 4 beats. Asystole pauses: 3 seconds. Symptom episodes: 3 x 10 minutes. Summary: Successful implantation of a subcutaneously injected Reveal LINQ2 threat monitoring analyst device. CPT 72203 Complications: None; patient tolerated the procedure well. Disposition: PACU - hemodynamically stable. Condition: stable Specimens:None Implants: ICM Seferino Chambers MD * Preprocedure Instructions - Katerina Toth RN - 05/06/2022 1416 EST Local procedure 05/08/22 May eat, drink and take medications per usual routine. Friend will provide support and transportation. documented in this encounter Miscellaneous Notes * Brief Op Note - Seferino Chambers MD - 05/08/2022 0569 EST Date: 05/08/2022 Location: [facility] [place] Name: Marilin Allen, : 1975, Diagnosis Pre-Op Diagnosis Codes: * Syncope and collapse [R55] Post-op Diagnosis * Syncope and collapse [R55] Procedures * INSERTION, IVORY POLISHER, SUBCUTANEOUS, WITH PROGRAMMING Surgeons * Seferino Chambers MD - Primary Procedure Summary Anesthesia: Local (Nurse-Monitored) ASA: ASA status not filed in the log. Estimated Blood Loss: No Blood Loss Documented Total IV Fluids: <10 mL LDAs: Full Thickness 08/01/16 Surgical Inner Nose (Active) Full Thickness 08/01/16 Surgical Left Ear (Active) Wound 05/08/22 Incision Chest (Active) Implants Type Name Action Serial No. ICM SYSTEM REVEAL LINQ II - [id number] Implanted [id number] Staff: Systems Test Analyst: Corinne Conrad RN Scrub Person: Keshawn Felix Indications: Marilin Allen is an 47 y.o. female who is having surgery for Syncope and collapse [R55] Findings: ICM implant without problems, acceptable EKG signal. Complications: None; patient tolerated the procedure well. Disposition: PACU - hemodynamically stable. Condition: stable Specimens Collected: No specimens collected during this procedure. Attending Attestation: I performed the procedure Seferino Chambers MD documented in this encounter Plan of Treatment Upcoming Encounters Date Type Department Care Team (Late st Contact Info) Description 03/04/2024 11:30 EDT Office Visit [facility] Interventional Pain [address] [place] [address] Percy Molina MD [address] [place] [address] [address] [place] [address] 04/26/2024 9:15 EDT Office Visit [facility] Interventional Pain [address] [place] [address] Percy Molina MD [address] [place] [address] [address] [place] [phone] 01/25/2026 12:00 EDT Office Visit [facility] Hematology & Oncology - [facility] [address] [facility], [place] [address] Jorge Lim MD 111 [facility], [address] [place] [phone] documented as of this encounter Procedures Procedure Name Priority Date/Time Associated Diagnosis Comments ECG REPORT - SCANNED 05/12/2022 13:18 EST INSERTION, IVORY POLISHER, SUBCUTANEOUS, WITH PROGRAMMING 05/08/2022 13:50 EST Syncope and collapse Special Needs SF documented in this encounter Results * ECG REPORT - SCANNED (05/12/2022 13:18 EST) 05/12/2022 13:1 8 EST Scan 2 Bag End Sewer PROCEDURE/MINOR ROGELIO GICAL ORDERABLES documented in this encounter Visit Diagnoses Diagnosis Syncope, unspecified syncope type Syncope and collapse documented in this encounter Administered Medications Inactive Administered Medications - up to 3 most recent administrations Medication Order MAR Action Action Date Dose Rate Site chlorhexidine gluconate 2 % cloth 1 Each 1 Each, topical, PRE-OP MULTIPLE, Starting on Tiana 05/08/22 at 1304, Until 05/09/22 at 0605, Other, Routine, Preprocedure Given 05/08/2022 13:08 EST 1 Each lidocaine 1 % injection PRN, Starting on Tiana 05/08/22 at 1421, Until Tiana 05/08/22 at 1438, Routine, Intraprocedure Given 05/08/2022 14:21 EST 30 mL Chest documented in this encounter Discontinued Medications Medication Sig Discontinue Reason Start Date End Da te doxycycline (ADOXA) 100 mg tablet Take 100 mg by mouth daily. Reported on 07/08/2016 05/09/2022 documented as of this encounter Active and Recently Administered Medications Times are shown in EST. PRN Medication Order 05/06/2022 05/07/2022 05/08/2022 chlorhexidine gluconate 2 % cloth 1 Each 1 Each, topical, PRE-OP MULTIPLE, Starting on Tiana 05/08/22 at 1304, Until 05/09/22 at 0605, Other, Routine, Preprocedure 1308 (Given - Provid er: Luis Boyce RN) lidocaine 1 % injection (CANCELED) PRN, Starting on Tiana 05/08/22 at 1421, Until Tiana 05/08/22 at 1438, Routine, Intraprocedure 1421 (Given - Provid er: Seferino Chambers MD) documented in this encounter Orders Discharge Count Last Ordered Date First Orde red Date DISCHARGE PATIENT 1 05/08/2022 documented in this encounter Care Teams Photographic Equipment Inspector Relationship Specialty Start Date End Date Diya Gifford MD [address] [place] [id number] PCP - General 07/26/19 Dariana Juarez MD [address] [place] [address] [address] [place] [phone] Consulting Clinician Cardiovascular Disease 02/06/22 documented as of this encounter
--- OUTSIDE RECORDS SUMMARY | 2024-02-23 17:19 | XMS_ITS | Encounter Summary ---
Author Organization [facility] Address [address] [place] [address] Care Team Providers Care Tool Maintenance Worker Name Role Phone Diya Gifford MD Primary Care Provide r Dariana Juarez MD Unavailable Reason for Visit * Reason Onset Date Comments Follow-up 03/19/2022 Reveal Implant Encounter Details Date Type Department Care Team (Late st Contact Info) Description 03/19/[address] [facility] Cardiology Clinic [address] [place] [address] Kathy Mcgee, TATUM [address] [place] [address] [address] [place] [address] Follow-up (Reveal Implant) Social History Tobacco Use Types Packs/Day Years [...] encounter Miscellaneous Notes * Telephone Encounter - Kathy Mcgee RN - 05/06/2022 1407 EST Spoke with patient, reviewed instructions for pre-procedure. No further questions at this time. Sheis instructed to call the office back with any questions or concerns. * Telephone Encounter - Kathy Mcgee RN - 05/02/2022 1043 EDT Letter printed and mailed to patient. * Telephone Encounter - Kathy Mcgee RN - 05/01/2022 1000 EDT Spoke with patient, she agrees to Reveal implant on 05/08 22 @ 1:30PM * Telephone Encounter - Kathy Mcgee RN - 04/18/2022 1059 EDT Spoke with patient and offered Reveal implant 04/23, patient states she is not available this day. Will try to schedule another day. * Telephone Encounter - Kathy Mcgee RN - 03/19/2022 1502 EDT Per patient will need Reveal pfugzum-FA-Afllngw/collapse. documented in this encounter Plan of Treatment Upcoming Encounters Date Type Department Care Team (Late st Contact Info) Description 03/04/2024 11:30 EDT Office Visit [facility] Interventional Pain [address] [place] [address] Percy Molina MD 62 [facility] [address] [place] [address] 04/26/2024 9:[address] [facility] Interventional Pain [address] [place] [address] Percy Molina MD 62 [facility] [address] [place] [phone] 01/25/2026 12:00 EDT Office Visit [facility] Center Hematology & Oncology - [address] [phone] Jorge Lim MD 111 [facility], [address] [place] [phone] documented as of this encounter Visit Diagnoses Not on filedocumented in this encounter Care Teams Tool Maintenance Worker Relationship Specialty Start Date End Date Diya Gifford MD [address] [place] [address] PCP - General 07/26/19 Dariana Juarez MD [address] [place] [address] [address] [place] [phone] Consulting Clinician Cardiovascular Disease 02/06/22 documented as of this encounter
--- OUTSIDE RECORDS SUMMARY | 2024-02-23 17:19 | XMS_ITS | Encounter Summary ---
Author Organization [facility] Address [address] [place] [address] Care Team Providers Care Outpatient Therapist Name Role Phone Diya Gifford MD Primary Care Provide r Reason for Referral * Cardiology (Routine/Next Available) - Authorization Not Required Specialty Diagnoses / Procedures [facility] Referred To Contact Diagnoses Syncope, unspecified syncope type Procedures CARDIAC EVENT MONITOR Dariana Juarez MD [address] [place] [phone] [facility] Referral ID Status Reason Start Date Expiration Date Visits Requested Visits Authorized [id number] Authorization Not Required 12/03/2021 1 1 * Cardiology (Routine/Next Available) - Specialty Report Received Specialty Diagnoses / Procedures [facility] Referred To Contact Nuclear Medicine Diagnoses Syncope, unspecified syncope type Procedures NM CARD SPECT NUCLEAR STRESS Dariana Juarez MD [address] [place] [phone] [facility] Referral ID Status Reason Start Date Expiration Date V isits Requested Visits Authorized [id number] Specialty Report Received 12/03/2021 1 1 Reason for Visit * Reason Comments Follow-up * Cardiology (Routine) - Authorization Not Required Specialty Diagnoses / Procedures Referred By Contac t Referred To Contact Cardiology Diagnoses Syncope Family history of coronary artery disease Diya Gifford MD [address] [place] [address] [address] [place] [address] [facility] [address] [place] [address] Referral ID Status Reason Start Date Expiration Date Visits Requested Visits Authorized [id number] Authorization Not Required 1 1 Encounter Details Date Type Department Care Team (Late st Contact Info) Description 12/03/2021 8:30 EDT Office Visit [facility] [address] [place] [phone] Dariana Juarez MD [address] [place] [address] [address] [place] [phone] Syncope, unspecified syncope type (Primary [...] Sign Reading Time Taken Comments Blood Pressure 128/76 12/03/2021 0828 EDT Pulse 69 12/03/2021 0828 EDT Temperature - - Respiratory Rate - - Oxygen Saturation 97% 12/03/2021 0828 EDT Inhaled Oxygen Concentration - - Weight 90 kg (198 lb 6.4 oz) 12/03/2021 0828 EDT Height 149.9 cm (4' 11) 12/03/2021 0828 EDT Body Mass Index 40.07 12/03/2021 0828 EDT documented in this encounter Functional Status [...] Progress Notes * Dariana Juarez MD - 12/03/2021 0830 EDT [facility] Cardiology Office Visit Subjective: Chief Complaint(s): Follow-up HPI: 46-year-old female with history of hypertension who presents for evaluation of recurrent syncope. She notes these episodes started in July 2021 she has had 4 total. The original episode occurred at around 2 AM when she got up in the middle of the night-she syncopized at that time without prodrome. Went to the emergency room at [facility] was admitted for monitoring. Echocardiogram [...] episode was last week at her son's [employer] competition. She was getting up from a [...] Outpatient Medications Marked as Taking for the 12/03/21 encounter (Office Visit) with Dariana Juarez MD Medication Sig ??? amitriptyline (ELAVIL) 100 mg tablet 100 mg daily. ??? buPROPion (WELLBUTRIN SR) 150 mg SR tablet Take 150 mg by mouth 2 times daily. ??? cetirizine (ZYRTEC) 10 mg tablet Take 10 mg by mouth if needed. Reported on 07/08/2016 ??? cyclobenzaprine (FLEXERIL) 5 mg tablet Take [...] consciousness and weakness. Objective: Examination: Vitals: BP 128/76 (BP Cuff Location: Right arm, BP Patient Position: Sitting, BP Cuff Sizes: Adult, regular) Pulse 69 Ht (!) 149.9 cm (59) Wt 90 kg (198 lb 6.4 oz) SpO2 97% BMI 40.07 kg/m?? Body mass index is 40.07 kg/m??. Physical Exam Constitutional: Appearance: Normal appearance. [...] results found for: NTBNP Assessment & Plan: 46-year-old female with history of hypertension who presents for evaluation of recurrent syncope. Recurrent syncope: Certainly concerning for arrhythmogenic syncope given lack of prodrome. May be an orthostatic component, however 1 episode occurred while already standing. Does appear to have a family history of cardiac disease, but it sounds more like early coronary disease than unexplained arrhythmia genic . ECG from today is normal with normal QTc. We will proceed with longer- term monitoring. Have advised her to abstain from driving. TTE from [facility] was normal. - [employer] cardiac monitoring - Abstain from driving - Already has appointment with neurology- does have components to her story that do not fit with cardiac etiology (weakness, dropping objects, etc). Exercise stress ordered for worsening shortness of breath on exertion. Return to clinic in 2 months I spent a total of 50 minutes on the date of this encounter as indicated in the above progress note. Dariana Juarez MD * Carmen Way RN - 12/03/2021 0830 EDT Pt to office for placement of 30 day [employer] monitor. Pt aox3 and w/o complaints. Reviewed patient information and instructions with patient who verbalizes understanding.Monitor applied to chest in vertical position after appropriate skin prep per guidelines from carding supervisor. Pt demonstrated pushing event button to activate after application. Pt verbalizes understanding of documenting events after pushing the event button. Reviewed troubleshooting the device as well as how to contact the carding supervisor help line with questions/concerns. Reviewed charging and use of phone/device as well as how to change out the monitor on the monitor strips. Recommended reading through the accompanying manual as well. Pt verbalizes understanding of these items as well as removal and how to mail it back to the carding supervisor. documented in this encounter Plan of Treatment Upcoming Encounters Date Type Department Care Team (Late st Contact Info) Description 03/04/2024 11:30 EDT Office Visit [facility] Interventional Pain [address] [place] [address] Percy Molina MD [address] [place] [phone] 04/26/2024 9:15 EDT Office Visit [facility] Interventional Pain [address] [place] [address] Percy Molina MD [address] [place] [phone] 01/25/2026 12:00 EDT Office Visit [facility] Hematology & Oncology - [address] [phone] Jorge Lim MD [address] [place] [address], [address] [place] [phone] documented as of this encounter Procedures Procedure Name Priority Date/Time Associated Diagnosis Comments ECG REPORT - SCANNED 12/03/2021 23:51 EDT EKG 12-LEAD Routine 12/03/2021 8:34 EDT Syncope, unspecified syncope type documented in [...] Has happened 4 times. Was admitted to [facility] after first episode- work up negative, echo normal, EKG negative. Also reports some increased weakness and SOB over the past couple months. Pt currently wearing [employer] monitor- states she was celled Thursday at [...] Medications Beta blockers and diuretics. Supervising Physician Jhoan Franklin MD supervised and was immediately available during [...] Dariana Juarez MD CARDIAC NM ORDERABLE S * ECG REPORT - SCANNED (12/03/2021 23:51 EDT) 12/03/2021 23:5 1 EDT Scan 2 Cycle Consultant PROCEDURE/MINOR ROGELIO GICAL ORDERABLES * CARDIAC EVENT MONITOR (12/03/2021 9:41 EDT) [...] Dariana Juarez MD CARDIAC SERVICES ORD ERABLES * EKG 12-LEAD (12/03/2021 8:34 EDT) 12/03/2021 8:34 EDT [facility] 12/03/2021 23:45 EDT ? CVC ? Test Date: ?2021-12-03 Pat Name: ? THONG HESTER ? Department: ? Room: ? Gender: ? Female ? Paper Goods Machine Set Up Operator: ?? [place] : ?1975 ? Requested By: ZITA West Order Number: [id number] ? Reading : ?? JHOAN FRANKLIN MD ? Measurements Intervals ?[place] ? Rate: ? 80 ? P: ?44 WV: ? 148 ?QRS: ?28 QRSD: ? 76 ? T: ?33 QT: ? 394 ? QTc: ?454 ? Interpretive Statements Normal sinus rhythm Compared to ECG 09/23/2021 10:39:28 No significant changes I reviewed the tracing and have either agreed or edited the findings in this report. Electronically Signed On 12-03-2021 23:45:42 EDT by JHOAN FRANKLIN MD. Procedure Note Jhoan Franklin MD - 12/03/2021 CVC Test Date: 2021-12-03 Pat Name: THONG HESTER Department: Room: Gender: Female Paper Goods Machine Set Up Operator: [place] : 1975 Requested By: ZITA West Order Number: [id number] Reading MD: JHOAN FRANKLIN MD Measurements Intervals [place] Rate: 80 P: 44 WV: 148 QRS: 28 QRSD: 76 T: 33 QT: 394 QTc: 454 Interpretive Statements Normal sinus rhythm Compared to ECG 09/23/2021 10:39:28 No significant changes I reviewed the tracing and have either agreed or edited the findings inthis report. Electronically Signed On 12-03-2021 23:45:42 EDT by JHOAN ANAYA. Dariana Juarez MD CARDIAC ECG ORDERABL ES [facility] documented in this encounter Visit Diagnoses Diagnosis Syncope, unspecified syncope type- Primary Syncope, unspecified syncope type Syncope, unspecified syncope type documented in this encounter Discontinued Medications Medication Sig Discontinue Reason Start Date End Da te ondansetron (ZOFRAN-ODT) 8 mg disintegrating tablet Take 1 Tab by mouth every 8 hours as needed for Nausea. 08/01/2016 12/03/2021 methylPREDNISolone (MEDROL, CEDRIC,) 4 mg tablet follow package directions 08/01/2016 12/03/2021 HYDROmorphone (DILAUDID) 2 mg tablet Take 1 Tab by mouth every 4 hours. Daily Max: 12 mg Therapy completed 08/01/2016 12/03/2021 azithromycin (ZITHROMAX) 250 mg tablet Take 2 tablets (500mg) by mouth on day 1, followed by 1 tablet (250mg) by mouth once daily on days 2 through 5. Therapy completed 08/01/2016 12/03/2021 Bacitracin 500 unit/gram ointment Apply pea-sized amount to inside of both nostrils twice daily for 2 weeks. Therapy completed 08/01/2016 12/03/2021 documented as of this encounter Care Teams Outpatient Therapist Relationship Specialty Start Date End Date Diya Gifford MD [address] [place] [address] [address] [place] [address] PCP - General 07/26/19 documented as of this encounter
--- OUTSIDE RECORDS SUMMARY | 2024-02-23 17:19 | XMS_ITS | Encounter Summary ---
Author Organization [facility] Address [address] [place] [address] Care Team Providers Care Sales Executive Name Role Phone Diya Gifford MD Primary Care Provide r Encounter Details Date Type Department Care Team (Late st Contact Info) Description 09/23/2021 Transcribe Orders [facility] Non-Invasive Cardiology - [address] [id number] Dariana Juarez MD [address] [place] [address] 1 [place] [address] Social History Tobacco Use Types Packs/Day Years [...] Visit [facility] Interventional Pain [address] [place], [place] [phone] Percy Molina MD 62 [facility] [address] [place] [address] 04/26/2024 9:15 EDT Office Visit [facility] Interventional Pain [address] [place] [address] Percy Molina MD 62 [facility] [address] [place] [address] 01/25/2026 12:00 EDT Office Visit [facility] Hematology & Oncology - [facility] [address] [place] [address] Jorge Lim MD 111 [facility], Level 2 [place] [phone] documented as of this encounter Visit Diagnoses Not on filedocumented in this encounter Care Teams Sales Executive Relationship Specialty Start Date End Date Diya Gifford MD 4 [facility] [address] [place], [place] [phone] PCP - General 07/26/19 documented as of this encounter
--- OUTSIDE RECORDS SUMMARY | 2024-02-23 17:19 | XMS_ITS | Encounter Summary ---
Author Organization [facility] Address [address] [place] [address] Care Team Providers Care Post Tensioning Ironworker Name Role Phone Diya Gifford MD Primary Care Provide r Reason for Referral * Cardiology (Routine/Next Available) - Authorization Not Required Specialty Diagnoses / Procedures Referred By Ar salinas Referred To Contact Diagnoses Syncope and collapse Palpitations Procedures HOLTER MONITOR - 48 Diya Gifford MD 4 [facility] [address] [place] [address] [facility] Referral ID Status Reason Start Date Expiration Date Visits Requested Visits Authorized [id number] Authorization Not Required 11/04/2021 1 1 Reason for Visit * Cardiology (Routine/Next Available) - Authorization Not Required Specialty Diagnoses / Procedures Referred By Ar salinas Referred To Contact Diagnoses Syncope and collapse Palpitations Procedures HOLTER MONITOR - 48 Diya Gifford MD 4 [facility] [address] [place] [address] [facility] Referral ID Status Reason Start Date Expiration Date Visits Requested Visits Authorized [id number] Authorization Not Required 11/04/2021 1 1 Encounter Details Date Type Department Care Team (Latest Contact Info) Description 11/14/2021 8:52 EDT - 11/14/2021 23:59 EDT Hospital Encounter [facility] Non-Invasive Cardiology [address] [place] [address] Syncope and collapse; Palpitations Discharge Disposition: Home or Self Care [...] Info) Description 03/04/2024 11:30 EDT Office Visit [facility] Interventional Pain [address] [place], [place] [phone] Percy Molina MD 62 [facility] [address] [place] [address] 04/26/2024 9:15 EDT Office Visit [facility] Interventional Pain [address] [place] [address] Percy Molina MD [address] [place] [address] [place] [address] 01/25/2026 12:00 EDT Office Visit [facility] Hematology & Oncology - [address] [phone] Jorge Lim MD 111 [facility], Level 2 [place] [phone] documented as of this encounter Procedures Procedure Name Priority Date/Time Associated Diagnosis Comments HOLTER MONITOR - 48 Routine 11/14/2021 9:50 EDT Syncope and collapse Palpitations documented in this encounter Results * HOLTER MONITOR - [...] this encounter Visit Diagnoses Diagnosis Syncope and collapse Palpitations documented in this encounter Care Teams Post Tensioning Ironworker Relationship Specialty Start Date End Date Diya Gifford MD 4 [facility] [address] [place] [address] PCP - General 07/26/19 documented as of this encounter
--- OUTSIDE RECORDS SUMMARY | 2024-02-23 17:19 | XMS_ITS | Encounter Summary ---
Author Organization [facility] Address [address] [place] [address] Care Team Providers Care Cobbler Sole Name Role Phone Diya Gifford MD Primary Care Provide r Dariana Juarez MD Unavailable [phone] Reason for Visit * Auth/Cert Specialty Diagnoses / Procedures Referred By Ar salinas Referred To Contact Diagnoses Syncope and collapse Syncope and collapse [R55] Procedures NC INSERTION SUBQ CARDIAC RHYTHM MONITOR W/PRGRMG INSERTION, PRINTED CIRCUIT BOARDS CONTACT PRINTER, SUBCUTANEOUS, WITH PROGRAMMING Referral ID Status Reason Start Date Expiration Date Visits Re quested Visits Authorized [id number] 1 1 Encounter Details Date Type Department Care Team (Latest Contact Info) Description 05/08/2022 12:01 EST - 05/08/2022 23:59 [facility] Hospital Encounter [facility] Operating Room [address] [place] [address] Seferino Chambers MD [address] [place] [address] [address] [place] [address] Syncope, unspecified syncope type (Primary Dx) Discharge [...] be sent through Care Everywhere. * Implantable Water And Fire Technician: Post-op (Faroese) documented in this encounter Medications at Time [...] Code Departure Means Destination Home or Self Penitentiary documented in this encounter Nursing Notes * Luis Boyce, RN - 05/08/2022 3681 EST Pt very overwhelmed with procedure and the continued work-up. Guide Rail Cleaner from [facility] explained how to set up device at [...] Chambers MD - 05/08/2022 1400 EST INSERTION, PRINTED CIRCUIT BOARDS CONTACT PRINTER, SUBCUTANEOUS, WITH PROGRAMMING Operative Note Date: 05/08/2022 [place] [facility] [place] Marilin Allen, : 1975, Diagnosis Pre-Op Diagnosis Codes: * Syncope and collapse [R55] Post-op Diagnosis * Syncope and collapse [R55] Procedures * INSERTION, PRINTED CIRCUIT BOARDS CONTACT PRINTER, SUBCUTANEOUS, WITH PROGRAMMING Surgeons * Seferino Chambers [...] No. ICM SYSTEM REVEAL LINQ II - [id number] Implanted [id number] Staff: Gasateria Attendant: Corinne Conrad RN Scrub Person: Keshawn Felix [...] covered with Dermabond skin glue. Implanted hardware: Downstreamtronic Reveal LINQ2 ICM, model number [id number] Sensing sensitivity: 0.035 mV [place] zone: Above 182 bpm, 16 beats. Bradycardia zone: Below 30 bpm, 4 beats. Asystole pauses: 3 seconds. Symptom episodes: 3 x 10 minutes. Summary: Successful implantation of a subcutaneously injected Reveal LINQ2 cardiac rehab nurse device. CPT 50396 Complications: None; patient tolerated the procedure well. [...] Note - Seferino Chambers MD - 05/08/2022 1449 EST Date: 05/08/2022 [place] [facility] [place] Name: Marilin Allen, : 1975, Diagnosis Pre-Op Diagnosis Codes: * Syncope and collapse [R55] Post-op Diagnosis * Syncope and collapse [R55] Procedures * INSERTION, PRINTED CIRCUIT BOARDS CONTACT PRINTER, SUBCUTANEOUS, WITH PROGRAMMING Surgeons * Seferino Chambers [...] No. ICM SYSTEM REVEAL LINQ II - [id number] Implanted [id number] Staff: Gasateria Attendant: Corinne Conrad RN Scrub Person: Keshawn Felix [...] Info) Description 03/04/2024 11:30 EDT Office Visit [facility] Interventional Pain [address] [place] [address] Percy Molina MD 62 [facility] [address] [place] [address] 04/26/2024 9:15 EDT Office Visit [facility] Interventional Pain [address] [place], [place] [phone] Percy Molina MD [address] [place] [address] [address] [place] [address] 01/25/2026 12:00 EDT Office Visit [facility] Hematology & Oncology - [address] [phone] Jorge Lim MD [address] [place] [address] 2 [place] [address] documented as of this encounter Procedures Procedure Name Priority Date/Time Associated Diagnosis Comments ECG REPORT - SCANNED 05/12/2022 13:18 EST INSERTION, PRINTED CIRCUIT BOARDS CONTACT PRINTER, SUBCUTANEOUS, WITH PROGRAMMING 05/08/2022 13:50 EST Syncope and collapse Special Needs SF documented in this encounter Results * ECG REPORT - SCANNED (05/12/2022 13:18 EST) 05/12/2022 13:1 8 EST Scan 2 Topstitcher Zigzag PROCEDURE/MINOR ROGELIO GICAL ORDERABLES documented in this [...] Starting on Tiana 05/08/22 at 1304, Until Thu05/09/22 at 0605, Other, Routine, Preprocedure Given 05/08/2022 13:08 EST 1 Each documented in this encounter Discontinued Medications Medication [...] Starting on Tiana 05/08/22 at 1304, Until Thu05/09/22 at 0605, Other, Routine, Preprocedure 1308 (Given - Provid er: Luis Boyce RN) lidocaine 1 % injection (CANCELED) PRN, Starting on Tiana 05/08/22 at 1421, Until Tiana 05/08/22 at 1438, Routine, Intraprocedure 1421 (Given - Provid er: Seferino Chambers MD) documented in this encounter Orders Medications Ordered That Dany ht Not Have Been Administered Count Last Ordered Date First Ordered Date lidocaine 1 % injection 1 05/08/2022 Discharge Count Last Ordered Date First Orde red Date DISCHARGE PATIENT 1 05/08/2022 documented in this encounter Care Teams Cobbler Sole Relationship Specialty Start Date End Date Diya Gifford MD [address] [place] [address] [address] [place] [address] PCP - General 07/26/19 Dariana Juarez MD [address] [place] [address] [address] [place] [phone] Consulting Clinician Cardiovascular Disease 02/06/22 documented as of this encounter
--- OUTSIDE RECORDS SUMMARY | 2024-02-23 17:20 | XMS_ITS | Encounter Summary ---
Author Organization [facility] Address [address] [place] [address] Care Team Providers Care Family Reunification Specialist Name Role Phone Diya Gifford MD Primary Care Provide r Dariana Juarez MD Unavailable [phone] Encounter Details Date Type Department Care Team (Late st Contact Info) Description 06/20/2021 Lab Requisition [facility] Pathology & Laboratory Medicine - [facility] [address] [place], [place] [address] Outr Resulting Lab, Provider Social History Tobacco [...] Info) Description 03/04/2024 11:30 EDT Office Visit [facility] Interventional Pain [address] [place] [address] Percy Molina MD 62 [facility] [address] [place] [address] 04/26/2024 9:15 EDT Office Visit [facility] Interventional Pain [address] [place] [address] Percy Molina MD [address] [facility] [address] [place] [address] 01/25/2026 12:00 EDT Office Visit [facility] Hematology & Oncology - [facility] [address] [place], [place] [phone] Jorge Lim MD 111 [facility], Level [address] [place] [phone] documented as of this encounter Procedures Procedure Name Priority Date/Time Associated Diagnosis Comments ZZCOVID-19 TEST [facility] PCR Today 06/19/2021 17:20 EST COVID-19 TESTING Routine 06/19/2021 17:2 0 EST documented in this encounter Results * COVID-19 TEST [facility] PCR (06/19/2021 17:20 EST) Swab 06/19/2021 17:2 0 EST 06/20/2021 18:58 EST Provider Outr Resulting Lab MICROBIOLOGY - GENERAL ORDERABLES [facility] [address] [place] [address] * COVID-19 TESTING (06/19/2021 17:20 EST) COVID-19 rt-PCR Result Negative Negative 06/21/2021 13:51 EST [facility] Comment: This test has not been FDA cleared or approved. This test has been authorized by FDA under an EUA for use by authorized laboratories. This test has been authorized only for detection of nucleic acid from 2018-nCo, not for any other viruses or pathogens. This test is only authorized for the duration of the declaration that circumstances exist justifying the authorization of emergency use of in vitro diagnostic tests for detection and/or diagnosis of 2019-nCoV under section 564(b)(1) of Act, 21 U.S.C ?? 360bbb-3(b) (1), unless the authorization is terminated or revoked sooner. Negative results do not preclude 2019-nCoV infection and should not be used as the sole basis for treatment or other patient management decisions. Negative results must be combined with clinical observations, patient history, and epidemiological information. Testing was performed using the letitia SARS-CoV-2 assay ([employer] on the Letitia 6800 System Performing Lab Letitia 6800 [facility] 06/21/2021 13:51 EST [facility] Swab 06/19/2021 17:2 0 EST 06/20/2021 18:58 EST Provider Outr Resulting Lab MICROBIOLOGY - GENERAL ORDERABLES Performing Organization Address City/State/[facility] Co de Phone Number [facility] [address] [place] [address] documented in this encounter Visit Diagnoses Not on filedocumented in this encounter Care Teams Family Reunification Specialist Relationship Specialty Start Date End Date Diya Gifford MD [address] [place] [address] PCP - General 07/26/19 Dariana Juarez MD [address] [place] [address]A [address] [place] [phone] Consulting Clinician Cardiovascular Disease 02/06/22 documented as of this encounter
--- OUTSIDE RECORDS SUMMARY | 2024-02-23 17:20 | XMS_ITS | Encounter Summary ---
Author Organization [facility] Address [address] [place] [address] Care Team Providers Care Lye Boiler Name Role Phone Diya Gifford MD Primary Care Provide r Reason for Referral * Radiology Services (Routine) - Specialty Report Received Specialty Diagnoses / Procedures Referred By Abeac t Referred To Contact Diagnoses Neck pain Procedures XR CERVICAL SPINE 4-5 VIEWS Mike Coker MD [address] [place] [address] Referral ID Status Reason Start Date Expiration Date V isits Requested Visits Authorized [id number] Specialty Report Received 01/27/2020 1 1 Reason for Visit * Radiology Services (Routine) - Specialty Report Received Specialty Diagnoses / Procedures Referred By Ar salinas Referred To Contact Diagnoses Neck pain Procedures XR CERVICAL SPINE 4-5 VIEWS Mike Coker MD [address] [place] [address] Referral ID Status Reason Start Date Expiration Date V isits Requested Visits Authorized [id number] Specialty Report Received 01/27/2020 1 1 Encounter Details Date Type Department Care Team (Latest Contact Info) Description 01/31/2020 12:04 EDT - 01/31/2020 23:59 EDT Hospital Encounter [facility] Xray [address] [place] [address] Neck pain Discharge Disposition: Home or Self Care [...] Exposure Response Date Recorded In the last month, have you been in contact with someone who was confirmed or suspected to have Coronavirus / COVID-19? No / Unsure 01/31/2020 11:28 EDT documented as of this encounter Medications at Time of Discharge Medication Sig Dispensed Refills Start Date End Date cetirizine (ZYRTEC) 10 mg tablet Take 1 Tablet by mouth if needed. Reported on 07/08/2016 gabapentin (NEURONTIN) 400 mg capsule Take 2 Capsules by mouth daily. 07/29/2010 ibuprofen (MOTRIN) 600 mg tablet Take 1 Tablet by mouth every 6 hours as needed for Pain. metoprolol XL (TOPROL-XL) 100 mg tablet Take 1 Tablet by mouth daily. omeprazole (PRILOSEC) 20 mg capsule Take 1 Capsule by mouth daily. oxycodone-acetaminophen (PERCOCET) 5-325 mg per tablet Take 2 Tabs by mouth every 8 hours as needed for Pain. 24 Tab 0 07/29/2010 venlafaxine (EFFEXOR-XR) 150 mg XR capsule Take [...] 2 weeks. 14 g 1 08/01/2016 12/03/2021 doxycycline (ADOXA) 100 mg tablet Take 100 mg by mouth daily. Reported on 07/08/2016 05/09/2022 HYDROmorphone (DILAUDID) 2 mg tablet Take 1 Tab by mouth every 4 hours. Daily Max: 12 mg 20 Tab 08/01/2016 12/03/2021 methylPREDNISolone (MEDROL, CEDRIC,) 4 mg tablet follow package directions 1 Pack 08/01/2016 12/03/2021 ondansetron (ZOFRAN-ODT) 8 mg disintegrating tablet Take [...] Info) Description 03/04/2024 11:30 EDT Office Visit [facility] Interventional Pain [address] [place], [place] [phone] Percy Molina MD [address] [place] [address] 04/26/2024 9:15 EDT Office Visit [facility] Interventional Pain [address] [place], [place] [phone] Percy Molina MD [address] [place] [address] 01/25/2026 12:00 EDT Office Visit [facility] Hematology & Oncology - [address] [phone] Jorge Lim MD [address] [place] [address], [address] [place] [phone] documented as of this encounter Procedures Procedure Name Priority Date/Time Associated Diagnosis Comments XR CERVICAL SPINE 4-5 VIEWS Routine 01/31/2020 12:21 EDT Neck pain documented in this encounter Results * XR CERVICAL SPINE 4-5 VIEWS (01/31/2020 12:21 EDT) Anatomical Region Laterality Modality Left Computed Radiogr aphy 02/02/2020 10:1 9 EDT Impressions 02/02/2020 10:19 EDT Mild degenerative vertebral body endplate changes of the lower cervical spine. Narrative 02/02/2020 10:19 EDT XR CERVICAL SPINE 4-5 VIEWS ??01/31/2020 12:15 PM CLINICAL HISTORY: neck pain TECHNIQUE: AP, lateral, flexion, extension, and swimmer's views of the cervical spine views of the cervical spine were obtained. COMPARISON: None FINDINGS: There are 7 nonrib-bearing cervical type vertebrae. No fractures or concerning osseous lesions are identified. The alignment, discs, and discovertebral relationships are normal. Mild anterior osteophytes are noted at C5-C6. The visible soft tissues are unremarkable. Procedure Note Kevin Romero MD - 02/02/2020 XR CERVICAL SPINE 4-5 VIEWS 01/31/2020 12:15 PM CLINICAL HISTORY: neck pain TECHNIQUE: AP, lateral, flexion, extension, and swimmer's views of thecervical spine views of the cervical spine were obtained. COMPARISON: None FINDINGS: There are 7 nonrib-bearing cervical type vertebrae. No fractures orconcerning osseous lesions are identified. The alignment, discs, anddiscovertebral relationships are normal. Mild anterior osteophytes arenoted at C5-C6. The visible soft tissues are unremarkable. IMPRESSION Mild degenerative vertebral body endplate changes of the lower cervicalspine. Mike Coker MD IMG DIAGNOSTIC I MAGING ORDERABLES documented in this encounter Visit Diagnoses Diagnosis Neck pain Cervicalgia documented in this encounter Care Teams Lye Boiler Relationship Specialty Start Date End Date Diya Gifford MD [address] [place] [address] PCP - General 07/26/19 documented as of this encounter
--- OUTSIDE RECORDS SUMMARY | 2024-02-23 17:20 | XMS_ITS | Encounter Summary ---
Author Organization [facility] Address [address] [place] [address] Care Team Providers Care Payable Processor Name Role Phone Dangelo Reynolds MD Primary Care Provider Un available Encounter Details Date Type Department Care Team (Late st Contact Info) Description 02/05/2015 Results Only [facility] [phone] Liban Lewis MD [address] [place] [address] Social History Tobacco Use Types Packs/Day Years Used Date Smoking Tobacco: Never Assessed Sex and Gender Information Value Date Recorded Sex Assigned at Female 09/21/2023 8:38 EDT Gender Identity Female 06/08/2019 10:16 EST Sexual Orientation Not on file documented as of this encounter Plan of Treatment Upcoming Encounters Date Type Department Care Team (Late st Contact Info) Description 03/04/2024 11:30 EDT Office Visit [facility] Interventional Pain [address] [place] [address] Percy Molina MD 62 [facility] [address] [place] [address] 04/26/2024 9:15 EDT Office Visit [facility] Interventional Pain [address] [place] [address] Percy Molina MD [address] [place] [address] [address] [place] [address] 01/25/2026 12:00 EDT Office Visit [facility] Hematology & Oncology - [facility] [address] [place], [place] [phone] Jorge Lim MD 111 [facility], Level [address] [place] [phone] documented as of this encounter Procedures Procedure Name Priority Date/Time Associated Diagnosis Comments PAP TEST- RESULT ONLY Routine 02/05/2015 0:00 EDT documented in this encounter Results * PAP TEST- RESULT ONLY (02/05/2015 0:00 EDT) Pathology Report: CYTOPATHOLOGY REPORT Reports generated via electronic interface contain original data; however they are lacking the format of the original report. Caution should be taken when reading/interpret ing unformatted reports. Name: ? THONG HESTER ? Accession #: ? [id number] ? : ? 1975 (Age: 40) ??F ?Collect Date: ? 02/05/2015 ? Location: ? [facility] ? Receive Date: ? 02/07/2015 ? Provider: LIBAN LEWIS MD Copy to: ? Final Report SPECIMEN ADEQUACY ? Satisfactory for Evaluation - transformation zone component present GENERAL CATEGORIZATION ? Epithelial Cell Abnormality INTERPRETATION ? Squamous Cell Abnormality - Atypical squamous cells, undetermined significance (ASC-US). EDUCATIONAL NOTES/RECOMMENDAT IONS ? [facility] recommends following ASCCP's 2012 Updated Consensus Guidelines for the Management of Abnormal Cervical Cancer Screening Tests and Cancer Precursors (JLGTD, 2013; 17(5):S1-S27). ??Consensus guidelines are available online at www.asccp.org. Last Menstrual Period: 2009 Hormonal/Contrace ptive status: Tubal ligation: Bilateral Treatment History: Colposcopy: 12/2012 Specimen/Source: ??Pap Test, Cervix/Endocervix , ThinPrep Imaging System with manual evaluation Document reviewed and electronically signed by: ? STACIA WETZEL MD ? Report ??Date: 02/13/2015 15:29 HPV with Pap Test ? Date Ordered: ? 02/13/2015 ? Status: ?? Signed Out ?Date Complete: ? 02/15/2015 ? By: ??System Interface ? Date Reported: ? 02/15/2015 ? Interpretation RESULT: Negative for HPV. No E6 or E7 mRNA is detected from HPV types 16,18,31,33,35, 39,45,51,52,56,58 ,59,66, and 68 by environmental compliance inspector mediated amplification. Comments Document reviewed and electronically signed by: ? System Interface ? Report date: 02/15/2015 By the signature above, the attending physician certifies that he/she has personally conducted a gross and/or microscopic examination of the described specimens and rendered or confirmed the above diagnosis. End of Report [facility] 02/05/2015 02/07/2015 Liban Lewis MD PATHOLOGY ORDERABLES [facility] [address] [place] [address] documented in this encounter Visit Diagnoses Not on filedocumented in this encounter Care Teams Payable Processor Relationship Specialty Start Date End Date Dangelo Reynolds MD PCP - General 07/29/10 02/03/16 documented as of this encounter
--- OUTSIDE RECORDS SUMMARY | 2024-02-23 17:20 | XMS_ITS | Encounter Summary ---
Author Organization [facility] Address [address] [place] [address] Care Team Providers Care Services Coordinator Name Role Phone Juan Luis Moore MD Primary Care Provider [phone] Reason for Visit * (Routine) - Receiving Office to Obtain Authorization Specialty Diagnoses / Procedures Referred By Ar salinas Referred To Contact Procedures XR OUTSIDE IMAGES SANDI Unknown, ProviderMD Referral ID Status Reason Start Date Expiration Date Visits Requested Visits Authorized [id number] Receiving Office to Obtain Authorization 11/16/2019 1 1 Encounter Details Date Type Department Care Team (Late st Contact Info) Description 05/05/2019 Hospital Encounter [facility] Radiology - Main [place] [address] [place] [address] Social History Tobacco Use Types Packs/Day Years [...] 12:35 EST documented as of this encounter Plan of Treatment Upcoming Encounters Date Type Department Care Team (Late st Contact Info) Description 03/04/2024 11:30 EDT Office Visit [facility] Interventional Pain [address] [place], [place] [phone] Percy Molina MD 62 [facility] [address] [place] [phone] 04/26/2024 9:15 EDT Office Visit [facility] Interventional Pain [address] [place] [address] Percy Molina MD 62 [facility] [address] [place] [address] 01/25/2026 12:00 EDT Office Visit [facility] Hematology & Oncology - [address] [phone] Jorge Lim MD 111 [facility], [address] 2 [place] [phone] documented as of this encounter Procedures Procedure Name Priority Date/Time Associated Diagnosis Comments XR OUTSIDE IMAGES MSK Routine 11/16/2019 11:58 EDT documented in this encounter Results * XR OUTSIDE IMAGES MSK (11/16/2019 11:58 EDT) Narrative CHARISSA - 11/16/2019 11:58 EDT This is a non-reportable exam. Physician Fa_General IMG OTHER IMAGIN G ORDERABLES CHARISSA documented in this encounter Visit Diagnoses Not on filedocumented in this encounter Care Teams Services Coordinator Relationship Specialty Start Date End Date Juan Luis Moore MD PCP - General 02/04/16 07/25/19 documented as of this encounter
--- OUTSIDE RECORDS SUMMARY | 2024-02-23 17:20 | XMS_ITS | Encounter Summary ---
Author Organization [facility] Address [address] [place] [address] Care Team Providers Care Hand Nailer Name Role Phone Unavailable Primary Care Provider Unavailabl e Encounter Details Date Type Department Care Team (Late st Contact Info) Description 10/13/2007 9:40 EDT Hospital Encounter [address] [address] Ruby Hall, PAAbbyC [address] [place] [address], [address] [place] [phone] Social History Tobacco Use Types Packs/Day Years [...] Description 03/04/2024 11:[address] [facility] Interventional Pain [address] [place], [place] [phone] Percy Molina MD 62 [facility] [address] [place] [address] 04/26/2024 9:[address] [facility] Interventional Pain [address] [place] [address] Percy Molina MD 62 [facility] [address] [place] [address] 01/25/2026 12:00 EDT Office Visit [email or web address] Hematology & Oncology - [address] [phone] Jorge Lim MD 111 [facility], [address] [place] [phone] Pending Results Name Type Priority Associated Diagnoses Date /Time CYTOPATHOLOGY Pathology Routine 07/04/2009 0:00 EST CYTOPATHOLOGY Pathology Routine 07/04/2009 0:00 EST Scheduled Orders Name Type Priority Associated Diagnoses Orde r Schedule CYTOPATHOLOGY Pathology Routine For medicat ions that can be administered at any time during the hospitalization for visit such as immunizations. for 1 Occurrences starting 07/06/2009 CYTOPATHOLOGY Pathology Routine For medicat ions that can be administered at any time during the hospitalization for visit such as immunizations. for 1 Occurrences starting 07/06/2009 documented as of this encounter Procedures Procedure Name Priority Date/Time Associated Diagnosis Comments HPV DETECTION, HIGH RISK TYPES Routine 07/04/2009 18:46 EST CYTOPATHOLOGY Routine 07/04/2009 0:00 EST documented in this encounter Results * HUMAN PAPILLOMA VIRUS DNA TEST (07/04/2009 18:46 EST) Specimen Description Cervix, ThinPrep vial [facility] Result Negative for HPV types 16, 18, 31, 33, 35, 39, 45, 51, 52, 56, 58, 59, and 68. [facility] Report Status Final 07/17/2009 [facility] 07/04/2009 18:4 6 EST 07/10/2009 14:36 EST Jl Patch CNM MICROBIOLOGY - GENER AL ORDERABLES [facility] [address] [place] [address] * CYTOPATHOLOGY (07/04/2009 0:00 EST) Pathology Report: CYTOPATHOLOGY REPORT ? Reports generated via electronic interface contain original data; ? however they are lacking the format of the original report. ? Caution should be taken when reading/interpreti ng unformatted reports. ? Name: ? THONG HESTER ? Accession #: ? [id number] ? : ? 1975 (Age: 34) ??F ?Collect Date: ? 07/04/2009 ? Location: ? [facility] ? Receive Date: ? 07/06/2009 ? Provider: ?JL PATCH CNM ? Copy to: ? Specimen/Source: ?Pap Test, Cervix/Endocervix, ThinPrep Imaging System ? with manual evaluation ? Last Menstrual Period: ? 2 Weeks ago ? Other: ? HPVDX - HPV testing requested regardless of diagnosis on current ThinPrep Pap ?? test. ? SPECIMEN ADEQUACY ? Satisfactory for Evaluation ? - transformation zone component present ? GENERAL CATEGORIZATION ? Negative for Intraepithelial Lesion or Malignancy ? INTERPRETATION ? Reactive cellular changes associated with inflammation present (includes ?? repair). ? Document reviewed and electronically signed by: ? Keshawn Foreman, MD ? Report Date: ??07/10/2009 10:31 ? End of Report ? [facility] 07/04/2009 07/06/2009 Lamar Patch CNM PATHOLOGY ORDERABLES [facility] [address] [place] [address] documented in this encounter Visit Diagnoses Not on filedocumented in this encounter
--- OUTSIDE RECORDS SUMMARY | 2024-02-23 17:20 | XMS_ITS | Encounter Summary ---
Author Organization [facility] Address [address] [place] [address] Care Team Providers Care School Office Manager Name Role Phone Diya Gifford MD Primary Care Provide r Reason for Visit * (Routine/Next Available) - Receiving Office to Obtain Authorization Specialty Diagnoses / Procedures Referred By Ar salinas Referred To Contact Procedures MR OUTSIDE IMAGES NEURO Imaging, External Referral ID Status Reason Start Date Expiration Date Visits Requested Visits Authorized [id number] Receiving Office to Obtain Authorization 08/02/2021 1 1 Encounter Details Date Type Department Care Team (Latest Contact Info) Description 07/19/2021 - 07/19/2021 23:59 EST Hospital Encounter [facility] Secondary Reads [place] Discharge Disposition: Home or Self Care Social [...] on file documented as of this encounter Medications at Time of Discharge Medication Sig Dispensed Refills Start Date End Date cetirizine (ZYRTEC) 10 mg tablet Take 1 Tablet by mouth if needed. Reported on 07/08/2016 diclofenac sodium gel Apply topically 2 times daily. fexofenadine (ZACHARY) 60 mg tablet Take [...] needed for Pain. 24 Tab 0 07/29/2010 Sodium Fluoride 1.1 % cream Place onto teeth. venlafaxine (EFFEXOR-XR) 150 mg XR capsule Take [...] 2 weeks. 14 g 1 08/01/2016 12/03/2021 cyclobenzaprine (FLEXERIL) 5 mg tablet Take 5 [...] Visit [facility] Interventional Pain [address] [place] [address] Percy Molina MD [address] [place] [address] [place] [phone] 04/26/2024 9:15 EDT Office Visit [facility] Interventional Pain [address] [place] [address] Percy Molina MD [address] [place] [address] [place] [phone] 01/25/2026 12:00 EDT Office Visit [facility] Hematology & Oncology - [address] [phone] Jorge Lim MD 111 [facility], [address] [place] [phone] documented as of this encounter Procedures Procedure Name Priority Date/Time Associated Diagnosis Comments MR OUTSIDE IMAGES NEURO Routine 08/02/2021 6:39 EST documented in this encounter Results * MR OUTSIDE IMAGES NEURO (08/02/2021 6:39 EST) Narrative 08/02/2021 6:39 EST This is a non-reportable exam. External Imaging IMG OTHER IMAGING OR DERABLES documented in this encounter Visit Diagnoses Not on filedocumented in this encounter Care Teams School Office Manager Relationship Specialty Start Date End Date Diya Gifford MD [address] [address] PCP - General 07/26/19 documented as of this encounter
--- OUTSIDE RECORDS SUMMARY | 2024-02-23 17:20 | XMS_ITS | Encounter Summary ---
Author Organization [facility] Address [address] [place] [address] Care Team Providers Care Ophthalmic Photographer Name Role Phone Dangelo Reynolds MD Primary Care Provider Un available Encounter Details Date Type Department Care Team (Late st Contact Info) Description 07/19/2013 Results Only [facility] Laboratory Services - [facility] ([facility] [address] [place], [place] [id number] Marleen Head, [address] [place], [place] [address] Social History Tobacco Use Types Packs/Day Years Used Date Smoking Tobacco: Never Assessed Sex and Gender Information Value Date Recorded Sex Assigned at Female 09/21/2023 8:38 EDT Gender Identity Female 06/08/2019 10:16 EST Sexual Orientation Not on file documented as of this encounter Plan of Treatment Upcoming Encounters Date Type Department Care Team (Late st Contact Info) Description 03/04/2024 11:30 EDT Office Visit [facility] Interventional Pain [address] [place] [address] Percy Molina MD [address] [place] [address] [address] [place] [address] 04/26/2024 9:15 EDT Office Visit [facility] Interventional Pain [address] [place] [address] Percy Molina MD [address] [facility] [address] [place] [address] 01/25/2026 12:00 EDT Office Visit [facility] Hematology & Oncology - [facility] [address] [place], [place] [phone] Jorge Lim MD 111 [facility], [address] [place] [phone] documented as of this encounter Procedures Procedure Name Priority Date/Time Associated Diagnosis Comments PAP TEST- RESULT ONLY Routine 07/19/2013 0:00 EST documented in this encounter Results * PAP TEST- RESULT ONLY (07/19/2013 0:00 EST) Pathology Report: CYTOPATHOLOGY REPORT Reports generated via electronic interface contain original data; however they are lacking the format of the original report. Caution should be taken when reading/interpreti ng unformatted reports. Name: ? THONG HESTER ? Accession #: ? [id number] ? : ? 1975 (Age: 38) ??F ?Collect Date: ? 07/19/2013 ? Location: ? [facility] ? Receive Date: ? 07/21/2013 ? Provider: MARLEEN HEAD [facility] Copy to: ? Final Report SPECIMEN ADEQUACY ? Satisfactory for Evaluation - transformation zone component present GENERAL CATEGORIZATION ? Negative for Intraepithelial Lesion or Malignancy INTERPRETATION ? Reactive cellular changes associated with inflammation present (includes repair). Hormonal/Contracep tive status: Depo-Provera Previous Gynecologic Pathology: LSIL: 12/2012 Treatment History: Colposcopy: interterminate reactive changes Specimen/Source: ??Pap Test, Cervix/Endocervix, ThinPrep Imaging System with manual evaluation Document reviewed and electronically signed by: ? EZRA GOINS MD ? Report ??Date: 07/26/2013 13:38 HPV with Pap Test ? Date Ordered: ? 07/26/2013 ? Status: ?? Signed Out ?Date Complete: ? 07/28/2013 ? By: ??System Interface ? Date Reported: ? 07/28/2013 ? Interpretation RESULT: Positive for high or intermediate risk HPV. E6 OR E7 mRNA from one or more types of HPV types 16,18,31, 33,35,39,45,51,52, 56,58,59,66, and 68 is detected by vacuum tester cans mediated amplification. High and intermediate risk HPV types are associated with most squamous intraepithelial lesions and cervical cancers. Comments Document reviewed and electronically signed by: ? System Interface ? Report date: 07/28/2013 By the signature above, the attending physician certifies that he/she has personally conducted a gross and/or microscopic examination of the described specimens and rendered or confirmed the above diagnosis. End of Report [facility] 07/19/2013 07/21/2013 Marleen Head CNM PATHOLOGY ORDERABLES [facility] [address] [place] [address] documented in this encounter Visit Diagnoses Not on filedocumented in this encounter Care Teams Ophthalmic Photographer Relationship Specialty Start Date End Date Dangelo Reynolds MD PCP - General 07/29/10 02/03/16 documented as of this encounter
--- OUTSIDE RECORDS SUMMARY | 2024-02-23 17:20 | XMS_ITS | Encounter Summary ---
Author Organization [facility] Address [address] [place] [address] Care Team Providers Care Carpet Layer Name Role Phone Juan Luis Moore MD Primary Care Provider [phone] Reason for Visit * Reason Comments Pre-op Exam Encounter Details Date Type Department Care Team (Late st Contact Info) Description 07/08/2016 13:00 EST Office Visit [facility] Plastic, Reconstructive & Cosmetic Surgery - [address], [address] [place], [place] [phone] Juliano Penny MD [address] [place] [address] [place] [phone] 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 female Chief Complaints: Chief Complaint Patient presents with ??? 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 She has had numerous surgeries, both by Dr Juan Luis Celeste and Dr Jeet Guan as well as Dr Curtis Dillard. Her most recent surgery by Dr Guan was an open septorhinoplasty performed by him in 2000. This was simultaneous with a closure of an oronasal fistula and an iliac crest bone graft by Dr Brice. Initially, she had good results from the surgery however, in one or two years after the surgery, she noticed a slumping of her nose and recurrence of her right airway obstruction. She reports that she hasto use quite a bit of decongestants and antihistamines in an attempt to open her nose. She reports t hat she has difficulty exercising because of the degree of nasal obstruction. She also reports thatshe has had numerous surgeries on her ears and most recently her primary care physician has looked in her right ear and says that the eardrum is scarred. Patient Active Problems: Patient Active Problem List Diagnosis ??? Unilateral complete cleft palate with cleft lip ??? Refractory obstruction of nasal airway ??? TMJ syndrome ??? Dysfunction of right eustachian tube Past Medical History: Past Medical History Diagnosis Date ??? Cleft palate Past Surgical History: History reviewed. No pertinent past surgical history. Family History: History reviewed. No pertinent family history. Health Habits: Social History Substance Use Topics ??? Smoking status: Never Smoker ??? Smokeless tobacco: None ??? Alcohol use No Medications: Outpatient Encounter Prescriptions as of 07/08/2016 Medication Sig Dispense Refill ??? amitriptyline (ELAVIL) 50 mg tablet Take 50 mg by mouth at bedtime as needed. ??? cetirizine (ZYRTEC) 10 mg tablet Take 10 mg by mouth daily. Reported on 07/08/2016 ??? doxycycline (ADOXA) 100 mg tablet Take 100 mg by mouth daily. Reported on 07/08/2016 ??? gabapentin (NEURONTIN) 400 mg capsule Take 400 mg by mouth 4 times daily. ??? metoprolol XL (TOPROL-XL) 100 mg tablet Take 100 mg by mouth daily. ??? omeprazole (PRILOSEC) 20 mg capsule Take 20 mg by mouth daily. ??? oxycodone-acetaminophen (PERCOCET) 5-325 mg per tablet Take 2 Tabs by mouth every 8 hours as needed for Pain. 24 Tab 0 ??? UNABLE TO FIND Control 1 pil /day ??? venlafaxine (EFFEXOR-XR) 150 mg XR capsule Take 75 mg by mouth daily. ??? zolpidem (AMBIEN) 5 mg tablet Take 5 mg by mouth at bedtime. No facility-administered encounter medications on file as of 07/08/2016. Allergies: Allergies Allergen Reactions ??? Penicillins ??? Shellfish Containing Products ROS: Review of Systems - History obtained from chart review and the patient. Vitals: Visit Vitals ??? Ht (!) 149.9 cm (59) ??? Wt 68 kg (150 lb) ??? BMI 30.3 kg/m2 Physical examination: On examination, she is a pleasant, cooperative, 41-year-old woman in no acute distress. On examining her nose externally, her bony pyramid is symmetric. The lower two-thirds of her nose are asymmetric; however, and especially there is collapse in the right upper lateral cartilage region. Her alar wings are asymmetric. On examining the internal nose there is obstruction of the internal nasal valveon the right. With placement of the nasal speculum, the airway will open and she is able to breatheout of this. Intraorally, her palate is intact without evidence of fistula. I reviewed her facial bone CT scan, which showed marked residual septal deviation to the right and left turbinate hypertrophy Assessment: 41 y.o. female with The primary encounter diagnosis was Unilateral complete cleft palate with cleftlip. Diagnoses of Refractory obstruction of nasal airway and Nasal septal deviation were also pertinent to this visit.. Plan: I think that she would benefit from an open septorhinoplasty. I think that she would require some cartilage grafting and possibly skin grafting to open her right naris.She will also require a turbinoplasty and revision septoplasty at the same setting. We discussed the incisions that would be necessary to accomplish her proposed surgery. We talked about the risks of the operation, including, but not limited to: hematoma, seroma, infection, long-term pain, anesthetic complications, and recurrenceof condition. Scar from the procedure would be permanent, but will fade to some extent with time. The patient stated she accepts those risks. [facility] consent forms were reviewed and I believe that informed consent was given; we will go ahead with the surgery as planned. Orders: Marilin was seen today for pre-op exam. 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 Juliano Penny Jr., MD FACS thoracic medicine physician and Pediatrics Division of Plastic Surgery [facility] documented in this encounter Plan of Treatment Upcoming Encounters Date Type Department Care Team (Late st Contact Info) Description 03/04/2024 11:30 EDT Office Visit [facility] Interventional Pain [address] [place], [place] [phone] Percy Molina MD [address] [place] [address] [place] [phone] 04/26/2024 9:15 EDT Office Visit [facility] Interventional Pain [address] [place] [address] Percy Molina MD [address] [place] [address] [address] [place] [address] 01/25/2026 12:00 EDT Office Visit [facility] Hematology & Oncology - [facility] [address] [place], [place] [phone] Jorge Lim MD 111 [facility] [address] [place] [phone] documented as of this encounter Visit Diagnoses Diagnosis Unilateral complete cleft palate with cleft lip- Primary Unilateral cleft palate with cleft lip, complete Refractory obstruction of nasal airway Nasal septal deviation Deviated nasal septum documented in this encounter Care Teams Carpet Layer Relationship Specialty Start Date End Date Juan Luis Moore MD PCP - General 02/04/16 07/25/19 documented as of this encounter
--- OUTSIDE RECORDS SUMMARY | 2024-02-23 17:20 | XMS_ITS | Encounter Summary ---
Author Organization [facility] Address [address] [place] [address] Care Team Providers Care Drug Discovery Informatics Specialist Name Role Phone Unavailable Primary Care Provider Unavailabl e Encounter Details Date Type Department Care Team (Late st Contact Info) Description 04/08/2006 Before PRISM Converted Visit (Maple) [facility] - Maple conversion [address] [place] [address] Jeet Guan MD Social History Tobacco Use Types Packs/Day Years Used Date Smoking Tobacco: Never Assessed Sex and Gender Information Value Date Recorded Sex Assigned at Female 09/21/2023 8:38 EDT Gender Identity Female 06/08/2019 10:16 EST Sexual Orientation Not on file documented as of this encounter Progress Notes * Jeet Guan MD - 07/03/2009 0604 EST DIVISION OF PLASTIC RECONSTRUCTIVE SURGERY PROGRESS/FOLLOWUP NOTE - 04/08/2006 PROBLEM: open septorhinoplasty/inferior turbinectomies and closure of anterior oral nasal palatofistula (left hip bone graft donor site), status-post history of right complete cleft and palate. DOS: 08/17/00. PROVIDER REQUESTING CONSULTATION: None. HISTORY: The patient returned to the clinic with a complaint of, ???drainage from my nose on the right side. It is clear drainage but it seems to be going on all the time. Marichuy had it for quite a while now. Also, over the last couple of months, when I eat spicy foods, I get a feeling like something is coming up in the back of my nose. I think everythingis well healed where they did the bone graft and my teeth are great. Otherwise, I am very pleased with things.?? The patient denies any chills or fever. She denies any evidence of soda, milk, food, or other things what she puts in her mouth coming up out of her nose. EXAMINATION: A nasal exam was done with the nasal speculum and light. The patients airways are patent bilaterally. My impression from the somewhat limited exam was that the patient had an opening in the palatomucoperichondral area which was longitudinal. I could not see any opening in the mucoperichondrium on the left side. There was no evidence of any redness in the area of the rent in the mucoperichondrium. MEDICAL DECISION MAKING: The patient, on the somewhat limited exam that I did, appears to have an opening in the right mucoperichondrium but not on the left side. However, she may have a perforation of her septal mucosa. I attempted to probe the area with a Q-tip, but this was uncomfortable for thepatient. I told her that I would need to get the necessary equipment in the office for a more through examination in the relatively near future. She indicated that she wanted to proceed in this manner. PLAN: 1. patient will return to the clinic in several weeks and I will do a more through examination. Addendum: The patient denies any history of trauma, instrumentation, etc. to the mucoperichondrium.I also reviewed my postoperative records from the surgery in 2000 and on several occasion I mentioned that there was no evidence of a septal perforation. Signed by Jeet Guan MD 04/13/2006 11:09 Lefty Sánchez MD Jeet Guan MD - Jeet Guan MD A - chr Job ID: [id number] Document ID: [id number] cc: Dangelo Reynolds MD documented in this encounter Plan of Treatment Upcoming Encounters Date Type Department Care Team (Late st Contact Info) Description 03/04/2024 11:30 EDT Office Visit [facility] Interventional Pain [address] [place] [address] Percy Molina MD [address] [facility] [address] [place] [address] 04/26/2024 9:15 EDT Office Visit [facility] Interventional Pain [address] [place] [address] Percy Molina MD [address] [place] [address] [address] [place] [address] 01/25/2026 12:00 EDT Office Visit [facility] Hematology & Oncology - [address] [address] Jorge Lim MD [address] [place] [address], Level 2 [place] [phone] documented as of this encounter Visit Diagnoses Not on filedocumented in this encounter
--- OUTSIDE RECORDS SUMMARY | 2024-02-23 17:20 | XMS_ITS | Encounter Summary ---
Author Organization [facility] Address [address] [place] [address] Care Team Providers Care Mortgage Branch Manager Name Role Phone Diya Gifford MD Primary Care Provide r Reason for Visit * Reason Comments Pain * Consult (Routine) - Closed Specialty Diagnoses / Procedures Referred By Ar salinas Referred To Contact Orthopedic Surgery Diagnoses Left shoulder pain Diya Gifford MD [address] [place] [address] [facility] [place] [address] Referral ID Status Reason Start Date Expiration Date Visits Re quested Visits Authorized [id number] Closed 1 1 Encounter Details Date Type Department Care Team (Late st Contact Info) Description 01/31/2020 11:30 EDT Office Visit [facility] [place] [address] Mike Coker MD [address] [facility] [place] [address] Neck pain of over 3 months duration (Primary Dx) Social History Tobacco Use Types [...] 11:28 EDT documented as of this encounter Progress Notes * Mike Coker MD - 01/31/2020 1130 EDT This office note has been dictated. Mike Coker MD documented in this encounter Consult Notes * Mike Coker MD - 01/31/2020 1130 EDT [facility] CONSULTATION - 01/31/2020 PROBLEM LIST : 1. 50% neck, 50% left arm pain. a. Status post left carpal tunnel release. b. Status post left cubital tunnel release. 2. Chronic pain syndrome. a. 15 mg of oxycodone daily x10 years. 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 4. TMJ syndrome. 5. Hypertension. 6. Posttraumatic stress disorder. 7. Fibromyalgia syndrome. 8. History of Lyme disease. SUBJECTIVE: The patient is a 45-year-old woman with the above medical problems who continues to have cleft palate issues, is considering surgery to be done at [facility] over the next several months, but notes she had no trouble with her neck or arm until July 2017 when she slipped and fell on some outdoor stairs in her apartment building, landing on her left side. Since then has had persisting discomfort in her neck and left arm. She describes 50% left sided neck pain, 50% arm symptoms withradiation to the medial border of the scapula, top of her shoulder and circumferentially around herentire arm. She notes the symptoms are worsened by lifting and nothing makes them better. She has un dergone treatment with chiropractic, which was helpful, acupuncture which gave no relief. She has had a cervical collar with no relief and did physical therapy, which was not clear that it made a significant difference. She underwent carpal tunnel release and then cubital tunnel release, which did not change the symptoms in her arm or neck. She underwent a subacromial injection in the left shoulder by Dr Rocha which did not change her symptoms at all. She notes that she does get clicking and snapping in her shoulder, which makes her whole neck and arm hurt. She has been evaluated by Dr Andre Rocha, Dr Martin Toledo, and Dr Kentrell Gifford who have felt she does not have a surgically co rrectable lesion, is here today for another evaluation and opinion. PAST MEDICAL HISTORY: ALLERGIES: PENICILLIN causing hives. MEDICATIONS: Amitriptyline 50 mg at bedtime. Zithromax. Neurontin Oxycodone 50 mg daily. Metoprolol 100 mg daily. Ambien 5 mg p.r.n. Effexor XR 150 mg at bedtime. SOCIAL HISTORY: The patient is , nonsmoker, lives with her 16-year-old son. She has a 30-year-old son as well. She is on SSDI for chronic pain. OBJECTIVE: Cooperative and appropriate. Tender to light palpation along her entire midline, paraspinally along the clavicle itself, laterally along the acromion, posterior brachium. Sensation is diminished circumferentially around the entire left arm. Breakaway strength of all muscle groups in her left arm. Zero triceps, brachioradialis. Negative Chris's. Motion at the glenohumeral joint causes severe shoulder, scapular and neck pain with 40 degrees of passive flexion, 40 degrees of passive abduction. DIAGNOSTIC DATA: X-rays AP, lateral, flex ex lateral show a very minor osteophytic changes anteriorly on the body of C6, well preserved disk space heights, no evidence of any significant facet arthropathy. Alignment is well maintained. There is no evidence of any abnormal angulation or translation on flexion, extension views. EMG performed by Dr Schmidt was not available for review, by report showed no evidence of radiculopathy. ASSESSMENT: A woman with the above medical problems who has 50% neck and arm pain, no signs of myelopathy or radiculopathy. Given her overall constellation of symptoms, I do not see any surgically correctable lesions. I would not pursue any further imaging studies. I discussed with her that she mayhurt, but she cannot hurt herself or cause damage. We discussed she may benefit from a work hardening type program to help optimize her function. She wished to pursue that course. In the meantime, she is continuing to do workup of her facial problems and looking towards doing a surgery on her palate. PLAN: 1. Work hardening program. 2. Follow up with a nonoperative provider stephanie Coker MD / Dictation ID: [id number] cc: Diya Gifford MD, [facility], [address] [place] [id number] Mau Rocha MD, [facility], [address] [place] [id number] Martin Toledo MD, [facility], [address] [place] [phone] documented in this encounter Plan of Treatment Upcoming Encounters Date Type Department Care Team (Late st Contact Info) Description 03/04/2024 11:30 EDT Office Visit [facility] Interventional Pain [address] [place] [address] Percy Molina MD [address] [place] [address] [place] [phone] 04/26/2024 9:15 EDT Office Visit [facility] Interventional [place] [address] Percy Molina MD [address] [place] [address] [address] [place] [address] 01/25/2026 12:00 EDT Office Visit [facility] Hematology & Oncology - Main [address] [phone] Jorge Lim MD [address] [place] [address], [address] [place] [address] documented as of this encounter Visit Diagnoses Diagnosis Neck pain of over 3 months duration- Primary documented in this encounter Care Teams Mortgage Branch Manager Relationship Specialty Start Date End Date Diya Gifford MD [address] [place] [phone] PCP - General 07/26/19 documented as of this encounter
--- OUTSIDE RECORDS SUMMARY | 2024-02-23 17:20 | XMS_ITS | Encounter Summary ---
Author Organization [facility] Address [address] [place] [address] Care Team Providers Care Burning Machine Operator Name Role Phone Diya Gifford MD Primary Care Provide r Encounter Details Date Type Department Care Team (Latest Contact Info) Description 09/23/2021 9:57 EDT - 09/23/2021 10:27 EDT Hospital Encounter [facility] Non-Invasive Cardiology - [facility] [address] [place] [address] Discharge Disposition: Home or Self Care Social [...] Info) Description 03/04/2024 11:30 EDT Office Visit [facility] Interventional Pain [address] [place], [place] [phone] Percy Molina MD [address] [place] [phone] 04/26/2024 9:15 EDT Office Visit [facility] Interventional Pain [address] [place], [place] [phone] Percy Molina MD [address] [place] [phone] 01/25/2026 12:00 EDT Office Visit [facility] Hematology & Oncology - [address] [phone] Jorge Lim MD [address] [place] [address], [facility] [address] [place] [address] documented as of this encounter Visit Diagnoses Not on filedocumented in this encounter Care Teams Burning Machine Operator Relationship Specialty Start Date End Date Diya Gifford MD [address] [facility] [address] [place] [address] PCP - General 07/26/19 documented as of this encounter
--- OUTSIDE RECORDS SUMMARY | 2024-02-23 17:20 | XMS_ITS | Encounter Summary ---
Author Organization [facility] Address [address] [place] [address] Care Team Providers Care Retail Leader Name Role Phone Diya Gifford MD Primary Care Provide r Encounter Details Date Type Department Care Team (Late st Contact Info) Description 01/31/2020 Orders Only [facility] Spine Program - [address] [place] [address] Mike Coker MD [address] [facility] [place] [address] Neck pain (Primary Dx) Social History Tobacco Use Types [...] 11:28 EDT documented as of this encounter Plan of Treatment Upcoming Encounters Date Type Department Care Team (Late st Contact Info) Description 03/04/2024 11:30 EDT Office Visit [facility] Interventional Pain [address] [place] [address] Percy Molina MD 62 [facility] [address] [place] [phone] 04/26/2024 9:15 EDT Office Visit [facility] Interventional Pain [address] [place], [place] [phone] Percy Molina MD 62 [facility] [address] [place] [address] 01/25/2026 12:00 EDT Office Visit [facility] Hematology & Oncology - [address] [phone] Jorge Lim MD [address] [place] [address] [address] [place] [phone] documented as of this encounter Visit Diagnoses Diagnosis Neck pain- Primary Cervicalgia documented in this encounter Care Teams Retail Leader Relationship Specialty Start Date End Date Diya Gifford MD [address] [place] [address] [address] [place], [place] [address] PCP - General 07/26/19 documented as of this encounter
--- OUTSIDE RECORDS SUMMARY | 2024-02-23 17:20 | XMS_ITS | Encounter Summary ---
Author Organization [facility] Address [address] [place] [address] Care Team Providers Care Personal Secretary Name Role Phone Juan Luis Moore MD Primary Care Provider [phone] Encounter Details Date Type Department Care Team (Late st Contact Info) Description 02/14/2016 Results Only [facility]- PRISM [phone] Liban Lewis MD [address] [place] [address] Social History Tobacco Use Types Packs/Day Years [...] [facility] Interventional Pain [address] [place] [address] Percy Molina MD 62 [facility] [address] [place] [address] 04/26/2024 9:15 EDT Office Visit [facility] Interventional Pain [address] [place] [address] Percy Molina MD [address] [place] [address] 01/25/2026 12:00 EDT Office Visit [facility] Hematology & Oncology - [facility] [address] [place], [place] [phone] Jorge Lim MD [address] [facility], [address] [place] [address] documented as of this encounter Procedures Procedure Name Priority Date/Time Associated Diagnosis Comments PAP TEST- RESULT ONLY Routine 02/14/2016 0:00 EDT documented in this encounter Results * PAP TEST- RESULT ONLY (02/14/2016 0:00 EDT) Pathology Report: CYTOPATHOLOGY REPORT Reports generated via electronic interface contain original data; however they are lacking the format of the original report. Caution should be taken when reading/interpret ing unformatted reports. Name: ? THONG HESTER ? Accession #: ? [id number] ? : ? 1975 (Age: 41) ??F ?Collect Date: ? 02/14/2016 ? Location: ? [facility] ? Receive Date: ? 02/18/2016 ? Provider: LIBAN LEWIS MD Copy to: ? Final Report SPECIMEN ADEQUACY ? Satisfactory for Evaluation - transformation zone component present GENERAL CATEGORIZATION ? Epithelial Cell Abnormality INTERPRETATION ? Squamous Cell Abnormality - Atypical squamous cells, undetermined significance (ASC-US). EDUCATIONAL NOTES/RECOMMENDAT IONS ? [facility] recommends following ASCCP's 2012 Updated Consensus Guidelines for the Management of Abnormal Cervical Cancer Screening Tests and Cancer Precursors (JLGTD, 2013; 17(5):S1-S27). ??Consensus guidelines are available online at www.asccp.org. Hormonal/Contrace ptive status: Tubal ligation: Bi-lateral Previous Gynecologic Pathology: LSIL: HX of LGSIL 2013, 2014 Specimen/Source: ??Pap Test, Cervix/Endocervix , ThinPrep Imaging System with manual evaluation Document reviewed and electronically signed by: ? PHUONG KING MD ? Report ??Date: 02/22/2016 17:28 HPV with Pap Test ? Date Ordered: ? 02/22/2016 ? Status: ?? Signed Out ?Date Complete: ? 02/27/2016 ? By: ??System Interface ? Date Reported: ? 02/27/2016 ? Interpretation RESULT: Negative for HPV. No E6 or E7 mRNA is detected from HPV types 16,18,31,33,35, 39,45,51,52,56,58 ,59,66, and 68 by cotton sampler mediated amplification. Comments Document reviewed and electronically signed by: ? System Interface ? Report date: 02/27/2016 By the signature above, the attending physician certifies that he/she has personally conducted a gross and/or microscopic examination of the described specimens and rendered or confirmed the above diagnosis. End of Report [facility] 02/14/2016 02/18/2016 Liban Lewis MD PATHOLOGY ORDERABLES [facility] [address] [place] [address] documented in this encounter Visit Diagnoses Not on filedocumented in this encounter Care Teams Personal Secretary Relationship Specialty Start Date End Date Juan Luis Moore MD PCP - General 02/04/16 07/25/19 documented as of this encounter
--- OUTSIDE RECORDS SUMMARY | 2024-02-23 17:20 | XMS_ITS | Encounter Summary ---
Author Organization [facility] Address [address] [place] [address] Care Team Providers Care Personnel Generalist Manager Name Role Phone Diya Gifford MD Primary Care Provide r Dariana Juarez MD Unavailable Encounter Details Date Type Department Care Team (Late st Contact Info) Description 02/02/2020 Lab Requisition [facility] Pathology & Laboratory Medicine - [facility] [address] [place] [address] Liban Lewis MD [address] [place] [phone] Encounter for screening for malignant neoplasm of cervix; Encounter for screening for human papillomavirus (HPV) Social History Tobacco Use Types Packs/Day Years [...] Description 03/04/2024 11:[address] [facility] Interventional Pain [address] [place], [place] [phone] Percy Molina MD 62 [facility] [address] [place] [address] 04/26/2024 9:[address] [facility] Interventional Pain [address] [place] [address] Percy Molina MD 62 [facility] [address] [place] [address] 01/25/2026 12:00 EDT Office Visit [facility] Hematology & Oncology - [address] [phone] Jorge Lim MD 111 [facility], [address] [place] [phone] documented as of this encounter Procedures Procedure Name Priority Date/Time Associated Diagnosis Comments PAP TEST Today 02/02/2020 17:22 EDT HPV DNA DETECTION WITH GENOTYPING, PCR Today 02/02/2020 17:22 EDT documented in this encounter Results * HUMAN PAPILLOMAVIRUS (HPV) DETECTION-HIGH RISK TYPES (02/02/2020 17:22 EDT) HPV other High Risk types, PCR Negative Negative 02/16/2020 8:[address] [facility] Comment:No E6 or E7 mRNA is detected from HPV types 16,18,31,33,35,39,45,51,52,56,58,59,66, and 68 by core checker mediated amplification. Papanicolaou smear specimen (specimen) CERVIX UTERI STRUCTURE / Unknown 02/02/2020 17:22 EDT 02/14/2020 13:02 EDT Liban Lewis MD MICROBIOLOGY - GENER AL ORDERABLES Performing Organization Address City/[facility]/ZIP Co de Phone Number [facility] [address] [place] [address] * PAP TEST (02/02/2020 17:22 EDT) Specimens A. Cervix and/or Endocervix , ThinPrep Imaging System with Manual Evaluation 02/16/2020 8:[address] [facility] Specimen Adequacy Satisfactory for Evaluation - transformation zone component present 02/16/2020 8:[address] [facility] General Categorization Negative for intraepithelial lesion or malignancy 02/16/2020 8:[address] [facility] Attestation . 02/16/2020 8:[address] [facility] at 0830 Clinical History NONE 02/16/20 8:[address] [facility] HPV The result for the Human Papillomavirus (HPV) Detection-High Risk Types is Negative. No E6 or E7 mRNA is detected from HPV types 16,18,31,33,35,39 ,45,51,52,56,58,5 9,66, and 68 by core checker mediated amplification.Estrellita ting was performed on specimen [id number] and was resulted on 02/16/2020 0829 EDT by CHELLY, LAB INSTRUMENT RESULTS IN 02/16/2020 8:[address] [facility] Scanned Images 02/16/2020 8:[address] [facility] Papanicolaou smear specimen (specimen) CERVIX UTERI STRUCTURE / Unknown 02/02/2020 17:22 EDT 02/03/2020 9:45 EDT Liban Lewis MD PATHOLOGY ORDERABLES Performing Organization Address City/[facility]/ZIP Co de Phone Number [facility] [address] [place] [address] documented in this encounter Visit Diagnoses Diagnosis Encounter for screening for malignant neoplasm of cervix Screening for malignant neoplasm of the cervix Encounter for screening for human papillomavirus (HPV) Special screening examination for human papillomavirus (HPV) documented in this encounter Care Teams Personnel Generalist Manager Relationship Specialty Start Date End Date Diya Gifford MD [address] [place] [address] [address] [place] [address] PCP - General 07/26/19 Dariana Juarez MD [address] [place] [address] [address] [place] [phone] Consulting Clinician Cardiovascular Disease 02/06/22 documented as of this encounter
--- OUTSIDE RECORDS SUMMARY | 2024-02-23 17:20 | XMS_ITS | Encounter Summary ---
Author Organization [facility] Address [address] [place] [address] Care Team Providers Care Director Of Restaurants Name Role Phone Unavailable Primary Care Provider Unavailabl e Encounter Details Date Type Department Care Team (Latest Contact Info) Description 04/17/2006 10:56 EDT - 04/17/2006 11:59 EDT Hospital [facility] [address] [place] [address] Jeet Guan MD Discharge Disposition: Auto Discharge Social History Tobacco Use Types Packs/Day Years Used Date Smoking Tobacco: Never Assessed Sex and Gender Information Value Date Recorded Sex Assigned at Female 09/21/2023 8:38 EDT Gender Identity Female 06/08/2019 10:16 EST Sexual Orientation Not on file documented as of this encounter Discharge Disposition Disposition Code Departure Means Destination Auto Discharge documented in this encounter Plan of Treatment Upcoming Encounters Date Type Department Care Team (Late st Contact Info) Description 03/04/2024 11:30 EDT Office Visit [facility] Interventional Pain [address] [place], [place] [phone] Percy Molina MD 62 [facility] [address] [place] [address] 04/26/2024 9:15 EDT Office Visit [facility] Interventional Pain [address] [place] [address] Percy Molina MD [address] [place] [address] 01/25/2026 12:00 EDT Office Visit [facility] Hematology & Oncology - [address] [phone] Jorge Lim MD [address] [facility], [address] [place] [phone] documented as of this encounter Visit Diagnoses Not on filedocumented in this encounter
--- OUTSIDE RECORDS SUMMARY | 2024-02-23 17:20 | XMS_ITS | Encounter Summary ---
Author Organization Health system Address [address] [place] [address] Care Team Providers Care Long Filler Cigar Roller Machine Name Role Phone Juan Luis Moore MD Primary Care Provider [phone] Reason for Visit * Reason Comments Follow-up Encounter Details Date Type Department Care Team (Late st Contact Info) Description 08/26/2016 15:15 EST Office Visit [facility] Plastic, Reconstructive & Cosmetic Surgery - [address], [address] [place], [place] [phone] Juliano Penny MD [address] [place] [phone] Status post nasal surgery (Primary Dx) Social History Tobacco Use Types Packs/Day Years Used Date Smoking Tobacco: Never Alcohol Use Standard Drinks/Week Comments No 0 (1 standard drink = 0.6 oz pur e alcohol) Sex and Gender Information Value Date Recorded Sex Assigned at Female 09/21/2023 8:38 EDT Gender Identity Female 06/08/2019 10:16 EST Sexual Orientation Not on file documented as of this encounter Progress Notes * Juliano Penny MD - 08/26/2016 151 EST SUBJECTIVE: Marilin Allen returns in followup from secondary septorhinoplasty with composite tissue graft on 08/01/2016. Her pain and redness in her left ear has resolved. OBJECTIVE: On examination, she is in no distress. Her nose is healing well, without sign of infection or dehiscence. Graft is in place and shows early vascularization. Her left ear is healed without redness IMPRESSION: POD #25. Resolvedsurgical wound infection left ear PLAN: Resume normal activity. Follow up PRN documented in this encounter Plan of Treatment Upcoming Encounters Date Type Department Care Team (Late st Contact Info) Description 03/04/2024 11:[address] [facility] Interventional Pain [address] [place], [place] [phone] Percy Molina MD [address] [place] [address] [place] [phone] 04/26/2024 9:[address] [facility] Interventional Pain [address] [facility] [place], [place] [phone] Percy Molina MD [address] [place] [address] [place] [phone] 01/25/2026 12:00 EDT Office Visit [facility] Center Hematology & Oncology - [address] [phone] Jorge Lim MD [address] [place] [address], [facility] [address] [place] [phone] documented as of this encounter Visit Diagnoses Diagnosis Status post nasal surgery- Primary documented in this encounter Care Teams Long Filler Cigar Roller Machine Relationship Specialty Start Date End Date Juan Luis Moore MD PCP - General 02/04/16 07/25/19 documented as of this encounter
--- OUTSIDE RECORDS SUMMARY | 2024-02-23 17:20 | XMS_ITS | Encounter Summary ---
Author Organization [facility] Address [address] [place] [address] Care Team Providers Care Dormitory Supervisor Name Role Phone Dangelo Reynolds MD Primary Care Provider Un available Juan Luis Moore MD Primary Care Provider [phone] Diya Gifford MD Primary Care Provide r Dariana Juarez MD Unavailable [phone] Encounter Details Date Type Department Care Team (Late st Contact Info) Description 05/08/2003 Before PRISM Converted Visit (Maple) [facility] - Maple conversion [address] [place], [place] [phone] Luis Knight MD [address] [place] [address] Social History Tobacco Use Types Packs/Day Years Used Date Smoking Tobacco: Never Assessed Sex and Gender Information Value Date Recorded Sex Assigned at Female 09/21/2023 8:38 EDT Gender Identity Female 06/08/2019 10:16 EST Sexual Orientation Not on file documented as of this encounter Plan of Treatment Upcoming Encounters Date Type Department Care Team (Late st Contact Info) Description 03/04/2024 11:30 EDT Office Visit [facility] Interventional Pain [address] [place] [address] Percy Molina MD [address] [facility] [address] [place] [address] 04/26/2024 9:15 EDT Office Visit [facility] Interventional Pain [address] [place], [place] [phone] Percy Molina MD [address] [facility] [address] [place] [address] 01/25/2026 12:00 EDT Office Visit [facility] Cancer Center Hematology & Oncology - [facility] [address] [place], [place] [phone] Jorge Lim MD [address] [facility], [facility], Level 2 [place] [address] documented as of this encounter Procedures Procedure Name Priority Date/Time Associated Diagnosis Comments RAD ULTRASOUND Routine 05/08/2003 14:30 EST documented in this encounter Results * RAD ULTRASOUND (05/08/2003 14:30 EST) Anatomical Region Laterality Modality Other 05/08/2003 14:3 0 EST Narrative 02/26/2009 2:27 EDT 23928,CLEFT LIP/PALATE Please refer to the separate [facility] report. Procedure Note Kendrick Guan MD - 02/26/2009 [id number],CLEFT LIP/PALATE Please refer to the separate [facility] report. Luis Knight MD IMG US ORDERABLE S documented in this encounter Visit Diagnoses Not on filedocumented in this encounter Care Teams Dormitory Supervisor Relationship Specialty Start Date End Date Dangelo Reynolds MD PCP - General 07/29/10 02/03/16 Juan Luis Moore MD PCP - General 02/04/16 07/25/19 Diya Gifford MD [facility] [address] [place] [address] PCP - General 07/26/19 Dariana Juarez MD [address] [place] [address] [phone] Consulting Clinician Cardiovascular Disease 02/06/22 documented as of this encounter
--- OUTSIDE RECORDS SUMMARY | 2024-02-23 17:20 | XMS_ITS | Encounter Summary ---
Author Organization [facility] Address [address] [place] [address] Care Team Providers Care Charter Boat Operator Name Role Phone Juan Luis Moore MD Primary Care Provider [phone] Reason for Visit * Reason Comments Post-OP Follow Up Encounter Details Date Type Department Care Team (Late st Contact Info) Description 08/07/2016 11:00 EST Office Visit [facility] Plastic, Reconstructive & Cosmetic Surgery - [address], [address] [place] [address] Cindy Hudson PA-C [address] [place] [phone] Status post nasal surgery (Primary Dx) [...] Progress Notes * Juliano Penny MD - 08/07/2016 1100 EST SUBJECTIVE: Marilin Allen returns in followup from secondary septorhinoplasty with composite tissue graft on 08/01/2016. She is doing well. Pain control is adequate without pain medication. OBJECTIVE: On examination, she is in no distress. Her incision is healing well, without sign of infection or dehiscence. Graft is in place and shows early vascularization IMPRESSION: Doing well; POD #6. PLAN: Sutures were removed. We discussed dressing care, and the importance of avoiding blowing her nose. Follow up 1-2 weeks. documented in this encounter Plan of Treatment Upcoming Encounters Date Type Department Care Team (Late st Contact Info) Description 03/04/2024 11:30 EDT Office Visit [facility] Interventional Pain [address] [place] [address] Percy Molina MD [address] [place] [address] [place] [phone] 04/26/2024 9:15 EDT Office Visit [facility] Interventional Pain [address] [place] [address] Percy Molina MD [address] [place] [address] [place] [phone] 01/25/2026 12:00 EDT Office Visit [facility] Cancer Center Hematology & Oncology - [address] [phone] Jorge Lim MD [address] [place] [address], [address] [place] [phone] documented as of this encounter Visit Diagnoses Diagnosis Status post nasal surgery- Primary documented in this encounter Care Teams Charter Boat Operator Relationship Specialty Start Date End Date Juan Luis Moore MD PCP - General 02/04/16 07/25/19 documented as of this encounter
--- OUTSIDE RECORDS SUMMARY | 2024-02-23 17:20 | XMS_ITS | Encounter Summary ---
Author Organization [facility] Address [address] [place] [address] Care Team Providers Care Senior Service Technician Name Role Phone Unavailable Primary Care Provider Unavailabl e Encounter Details Date Type Department Care Team (Late st Contact Info) Description 04/17/2006 Before PRISM Converted Visit (Maple) [facility] - Maple conversion [address] [place] [address] Jeet Guan MD Social History Tobacco Use Types Packs/Day Years Used Date Smoking Tobacco: Never Assessed Sex and Gender Information Value Date Recorded Sex Assigned at Female 09/21/2023 8:38 EDT Gender Identity Female 06/08/2019 10:16 EST Sexual Orientation Not on file documented as of this encounter Progress Notes * Jeet Guan MD - 06/09/2009 1713 EST DIVISION OF PLASTIC RECONSTRUCTIVE SURGERY PROGRESS/FOLLOWUP NOTE - 04/17/2006 PROBLEM: from right nostril, status-post bone grafting of palate/septorhinoplasty, 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 PROVIDER REQUESTING CONSULTATION: None. HISTORY: The patient returned to the clinic for an exam today with the aide of topical anesthesia in her nose. She has been in good health since I saw her approximately ten days ago. EXAMINATION: The patient was seen in conjunction with Angela Swanson RN. I explained to the patienthow her inner nose would be anesthetizedwith cocaine solution and thereafter proceeded to anesthetize the nasal mucosa. Thereafter with a headlight and a speculum, I examined the patients nose. In the mid portion of the septum, approximately half way between the dorsum and the floor of the nose, she had an approximately 0.5 cm through and through septal perforation. There was no surrounding erythema nor ???crusting?? of mucus at the site. In addition, the patient had a variegatednasal floor which was yellowish in color and slightly friable. Despite the cocaine, yuni patient indicated that this area hurt her to some extent when palpated with a Q-tip. On the left side of the nose, the floor of the nose was pink and smooth. The patient continues to have some deviation of the septum posteriorly on the left and her airflow is better throughoutthe right side of her nose as opposed to the left side, although the left side has very adequate flow. The patient had no ???whistling?? when moving air back and forth through her nose with her mouth closed. Intraoral examination revealed no evidence of any oronasal fistula. MEDICAL DECISION MAKING: At this point in time, I can definitively say that the patient has a septal perforation and there is also some type of abnormality in the right nasal floor region as noted above. I told her that I would discuss the case at the [facility] this coming Thursday with Dr. Brice. Addendum: Following the patients departure from the office, I reviewed her chart once again. In particular, I reread her series of operations on her nose over the past number of years. 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 Celeste at the [facility]. In that note, Dr. Celeste described removing a portion of her septum through the open rhinoplasty approach. Heindicated that, ???this was accomplished without any perforation of the mucosaon the left side, although the mucosa on the right side was torn somewhat in the process.?? On 08/17/00 I did ???redo open septorhinoplasty?? and in that operative dictation that following the topical anesthetization of the nose, I removed the pledges and, ???on examination, the patient hada septal perforation at the midportion of the septum which measured approximately 7-8 mm in diameter. This was posterior to the most posterior portion of existing septal cartilage.?? I had forgottenthat a previous septal perforation had been identified. I will discuss the above noted situation with Dr. Brice this coming Thursday at [facility]. It is now my impression that the patientrhinorrhea very likely is not from the septal perforation which she has at the present time, although this could be possible. However, she indicated that she noted that the rhinorrhea has been relatively recent. PLAN: 1. As above. Signed by Jeet Guan MD 04/27/2006 16:16 Lefty Sánchez MD Jeet Guan MD - Jeet Guan MD A - [facility] Job ID: [id number] Document ID: [id number] cc: Ray Brice, [facility] Dangelo Reynolds MD documented in this encounter Plan of Treatment Upcoming Encounters Date Type Department Care Team (Late st Contact Info) Description 03/04/2024 11:30 EDT Office Visit [facility] Interventional Pain [address] [place] [address] Percy Molina MD [address] [place] [address] [place] [phone] 04/26/2024 9:15 EDT Office Visit [facility] Interventional [place] [address] Percy Molina MD [address] [place] [address] [address] [place] [phone] 01/25/2026 12:00 EDT Office Visit [facility] Hematology & Oncology - [address] [address] Jorge Lim MD [address] [place] [address] [address] [place] [phone] documented as of this encounter Visit Diagnoses Not on filedocumented in this encounter
--- OUTSIDE RECORDS SUMMARY | 2024-02-23 17:20 | XMS_ITS | Encounter Summary ---
Author Organization [facility] Address [address] [place] [address] Care Team Providers Care Medical Staff Manager Name Role Phone Dangelo Reynolds MD Primary Care Provider Un available Encounter Details Date Type Department Care Team (Late st Contact Info) Description 08/14/2014 Results Only [facility] Laboratory Services - [facility] ([facility]) [address] [place], [place] [address] Marleen Head, [address] [place], [place] [address] Social History Tobacco Use Types Packs/Day Years [...] Description 03/04/2024 11:[address] [facility] Interventional Pain [address] [place] [address] Percy Molina MD [address] [place] [address] [address] [place] [phone] 04/26/2024 9:[address] [facility] Interventional Pain [address] [place] [address] Percy Molina MD [address] [facility] [address] [place] [address] 01/25/2026 12:00 EDT Office Visit [facility] Cancer Center Hematology & Oncology - [facility] [address] [place], [place] [phone] Jorge Lim MD [address] [facility], [address] [place] [phone] documented as of this encounter Procedures Procedure Name Priority Date/Time Associated Diagnosis Comments PAP TEST- RESULT ONLY Routine 08/14/2014 0:00 EST documented in this encounter Results * PAP TEST- RESULT ONLY (08/14/2014 0:00 EST) Pathology Report: CYTOPATHOLOGY REPORT Reports generated via electronic interface contain original data; however they are lacking the format of the original report. Caution should be taken when reading/interpreti ng unformatted reports. Name: ? THONG HESTER ? Accession #: ? [id number] ? : ? 1975 (Age: 39) ??F ?Collect Date: ? 08/14/2014 ? Location: ? [facility] ? Receive Date: ? 08/16/2014 ? Provider: MARLEEN HEAD [facility] Copy to: ? Final Report SPECIMEN ADEQUACY ? Satisfactory for Evaluation - transformation zone component present GENERAL CATEGORIZATION ? Epithelial Cell Abnormality INTERPRETATION ? 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 EDUCATIONAL NOTES/RECOMMENDATI ONS ? [facility] recommends following ASCCP's 2012 Updated Consensus Guidelines for the Management of Abnormal Cervical Cancer Screening Tests and Cancer Precursors (JLGTD, 2013; 17(5):S1-S27). ??Consensus guidelines are available online at www.asccp.org. Last Menstrual Period: 10/2009 Previous Gynecologic Pathology: LSIL: LGSIL 12/2012 HPV: + 12/2012, 06/2013 KASSY: Indeterminate Treatment History: Miscellaneous treatment: Endometrial ablation Other: Additional clinical information: WNL 06/2013 Specimen/Source: ??Pap Test, Cervix/Endocervix, ThinPrep Imaging System with manual evaluation Document reviewed and electronically signed by: ? ENRIQUE TAFOYA MD ? Report ??Date: 08/23/2014 15:42 HPV with Pap Test ? Date Ordered: ? 08/23/2014 ? Status: ?? Signed Out ?Date Complete: ? 08/25/2014 ? By: ??System Interface ? Date Reported: ? 08/25/2014 ? Interpretation RESULT: Positive for high or intermediate risk HPV. E6 OR E7 mRNA from one or more types of HPV types 16,18,31, 33,35,39,45,51,52, 56,58,59,66, and 68 is detected by dryer feeder mediated amplification. High and intermediate risk HPV types are associated with most squamous intraepithelial lesions and cervical cancers. Comments Document reviewed and electronically signed by: ? System Interface ? Report date: 08/25/2014 By the signature above, the attending physician certifies that he/she has personally conducted a gross and/or microscopic examination of the described specimens and rendered or confirmed the above diagnosis. End of Report [facility] LABORATORY SERVICES 08/14/2014 08/16/2014 Marleen Head [facility] PATHOLOGY ORDERABLES [facility] LABORATORY SERVICES [address] [place] [address] documented in this encounter Visit Diagnoses Not on filedocumented in this encounter Care Teams Medical Staff Manager Relationship Specialty Start Date End Date Dangelo Reynolds MD PCP - General 07/29/10 02/03/16 documented as of this encounter
--- OUTSIDE RECORDS SUMMARY | 2024-02-23 17:20 | XMS_ITS | Encounter Summary ---
Author Organization [facility] Address [address] [place] [address] Care Team Providers Care Embedded Software Design Engineer Name Role Phone Dangelo Reynolds MD Primary Care Provider Un available Encounter Details Date Type Department Care Team (Late st Contact Info) Description 01/03/2013 Results Only [facility] Laboratory Services - [facility] ([facility]) [address] [place], [place] [phone] Marleen Head, [address] [place], [place] [address] Social History Tobacco Use Types Packs/Day Years Used Date Smoking Tobacco: Never Assessed Sex and Gender Information Value Date Recorded Sex Assigned at Female 09/21/2023 8:38 EDT Gender Identity Female 06/08/2019 10:16 EST Sexual Orientation Not on file documented as of this encounter Plan of Treatment Upcoming Encounters Date Type Department Care Team (Late st Contact Info) Description 03/04/2024 11:30 EDT Office Visit [facility] Interventional Pain [address] [place] [address] Percy Molina MD [address] [place] [address] [address] [place] [address] 04/26/2024 9:15 EDT Office Visit [facility] Interventional Pain [address] [place] [address] Pecry Molina MD [address] [place] [address] 01/25/2026 12:00 EDT Office Visit [facility] Cancer Center Hematology & Oncology - [facility] [address] [place], [place] [phone] Jorge Lim MD [address] [facility], [address] [place] [phone] documented as of this encounter Procedures Procedure Name Priority Date/Time Associated Diagnosis Comments PAP TEST- RESULT ONLY Routine 01/03/2013 0:00 EDT documented in this encounter Results * PAP TEST- RESULT ONLY (01/03/2013 0:00 EDT) Pathology Report: CYTOPATHOLOGY REPORT Reports generated via electronic interface contain original data; however they are lacking the format of the original report. Caution should be taken when reading/interpreti ng unformatted reports. Name: ? THONG HESTER ? Accession #: ? [id number] ? : ? 1975 (Age: 37) ??F ?Collect Date: ? 01/03/2013 ? Location: ? [facility] ? Receive Date: ? 01/05/2013 ? Provider: MARLEEN HEAD [facility] Copy to: ? Final Report SPECIMEN ADEQUACY ? Satisfactory for Evaluation - transformation zone component present GENERAL CATEGORIZATION ? Epithelial Cell Abnormality INTERPRETATION ? 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 EDUCATIONAL NOTES/RECOMMENDATI ONS ? [facility] recommends following ASCCP's 2012 Updated Consensus Guidelines for the Management of Abnormal Cervical Cancer Screening Tests and Cancer Precursors (JLGTD, 2013; 17(5):S1-S27). ??Consensus guidelines are available online at www.asccp.org. Last Menstrual Period: 10/2009 Specimen/Source: ??Pap Test, Cervix/Endocervix, ThinPrep Imaging System with manual evaluation Document reviewed and electronically signed by: ? ENRIQUE TAFOYA MD ? Report ??Date: 01/12/2013 09:22 HPV with Pap Test ? Date Ordered: ? 01/11/2013 ? Status: ?? Signed Out ?Date Complete: ? 01/14/2013 ? By: ??System Interface ? Date Reported: ? 01/14/2013 ? Interpretation RESULT: Positive for high or intermediate risk HPV. E6 OR E7 mRNA from one or more types of HPV types 16,18,31, 33,35,39,45,51,52, 56,58,59,66, and 68 is detected by medicare sales representative mediated amplification. High and intermediate risk HPV types are associated with most squamous intraepithelial lesions and cervical cancers. Comments Document reviewed and electronically signed by: ? System Interface ? Report date: 01/14/2013 By the signature above, the attending physician certifies that he/she has personally conducted a gross and/or microscopic examination of the described specimens and rendered or confirmed the above diagnosis. End of Report [facility]MAN 01/03/2013 01/05/2013 Marleen Head CN[facility] PATHOLOGY ORDERABLES [facility] ALE[facility] [address] [place] [address] documented in this encounter Visit Diagnoses Not on filedocumented in this encounter Care Teams Embedded Software Design Engineer Relationship Specialty Start Date End Date Dangelo Reynolds MD PCP - General 07/29/10 02/03/16 documented as of this encounter
--- OUTSIDE RECORDS SUMMARY | 2024-02-23 17:20 | XMS_ITS | Encounter Summary ---
Author Organization [facility] Address [address] [place] [address] Care Team Providers Care Landmen Name Role Phone Diya Gifford MD Primary Care Provide r Reason for Referral * Cardiology (Routine/Next Available) - Receiving Office to Obtain Authorization Specialty Diagnoses / Procedures Referred By Ar salinas Referred To Contact Diagnoses Arrhythmia Procedures EKG 12-LEAD Dariana Juarez MD [address] [place] [phone] Referral ID Status Reason Start Date Expiration Date Visits Requested Visits Authorized [id number] Receiving Office to Obtain Authorization 09/23/2021 1 1 Reason for Visit * Cardiology (Routine/Next Available) - Receiving Office to Obtain Authorization Specialty Diagnoses / Procedures Referred By Ar salinas Referred To Contact Diagnoses Arrhythmia Procedures EKG 12-LEAD Dariana Juarez MD [address] [place] [phone] Referral ID Status Reason Start Date Expiration Date Visits Requested Visits Authorized [id number] Receiving Office to Obtain Authorization 09/23/2021 1 1 Encounter Details Date Type Department Care Team (Latest Contact Info) Description 09/23/2021 10:28 EDT - 09/23/2021 23:59 EDT Hospital Encounter [facility] Non-Invasive Cardiology - [address] [address] Arrhythmia Discharge Disposition: Home or Self Care Social [...] Info) Description 03/04/2024 11:30 EDT Office Visit [facility] Interventional Pain [address] [facility] [place] [address] Percy Molina MD [address] [place] [address] [address] [place] [address] 04/26/2024 9:15 EDT Office Visit [facility] Interventional Pain [address] [facility] [place] [address] Percy Molina MD 62 [facility] [address] [place] [address] 01/25/2026 12:00 EDT Office Visit [facility] [place] Hematology & Oncology - [facility] [address] [place] [address] Jorge Lim MD 111 [facility], Level 2 [place] [address] documented as of this encounter Procedures Procedure Name Priority Date/Time Associated Diagnosis Comments ECG REPORT - SCANNED 09/25/2021 11:20 EDT EKG 12-LEAD Routine 09/23/2021 10:39 EDT Arrhythmia documented in this encounter Results * ECG REPORT - SCANNED (09/25/2021 11:20 EDT) 09/25/2021 11:2 0 EDT Scan 2 Sales And Service Technician PROCEDURE/MINOR ROGELIO GICAL ORDERABLES * EKG 12-LEAD (09/23/2021 10:39 EDT) 09/23/2021 10:3 9 EDT Narrative [facility] EKG - 09/25/2021 11:15 EDT ? [facility] ? Test Date: ?2021-09-23 Pat Name: ? THONG HESTER ? Department: ?? [id number] ? Room: ? Gender: ? Female ? Director [facility]: ?? : ?1975 ? Requested By: ZITA West Order Number: [id number] ? Reading MD: ?? JONAH THORNTON DE SA MD ? Measurements Intervals ?Bear ? Rate: ? 93 ? P: ?65 OH: ? 141 ?QRS: ?55 QRSD: ? 86 [...] Jonah Muñoz Sa, MD - 09/25/2021 [facility] Test Date: 2021-09-23 Pat Name: THONG HESTER Department: [id number] Room: Gender: Female Director [facility]: : 1975 Requested By: ZITA West Order Number: [id number] Reading MD: JONAH HUSAIN Measurements Intervals Bear Rate: 93 P: 65 [place]: 141 QRS: 55 QRSD: 86 T: 49 QT: 350 QTc: 437 Interpretive Statements SINUS RHYTHM Automated Interpretation. Provider Interpretation to follow. No previous ECG available for comparison I reviewed the tracing and have either agreed or edited the findings inthis report. Electronically Signed On 09-25-2021 11:15:54 EDT by JONAH CANSECO SA, MD. Dariana Juarez MD CARDIAC ECG ORDERABL ES [facility] EKG documented in this encounter Visit Diagnoses Diagnosis Arrhythmia Cardiac dysrhythmia, unspecified documented in this encounter Care Teams Landmen Relationship Specialty Start Date End Date Diya Gifford MD 4 [facility] [address] [place] [address] PCP - General 07/26/19 documented as of this encounter
--- OUTSIDE RECORDS SUMMARY | 2024-02-23 17:20 | XMS_ITS | Encounter Summary ---
Author Organization [facility] Address [address] [place] [address] Care Team Providers Care Glass Inspector Name Role Phone Diya Gifford MD Primary Care Provide r Encounter Details Date Type Department Care Team (Late st Contact Info) Description 01/11/2020 Orders Only [facility] Hand & Upper Extremity Program - [address] [phone] Susan Mistry PA-C [address] [place] [address] Left shoulder pain, unspecified chronicity (Primary Dx) Social History Tobacco Use Types Packs/Day Years Used Date Smoking Tobacco: Never Alcohol Use Standard Drinks/Week Comments No 0 (1 standard drink = 0.6 oz pur e alcohol) Sex and Gender Information Value Date Recorded Sex Assigned at Female 09/21/2023 8:38 EDT Gender Identity Female 06/08/2019 10:16 EST Sexual Orientation Not on file documented as of this encounter Progress Notes * Susan Mistry PA-C - 01/11/2020 1140 EDT Opened in error. documented in this encounter Plan of Treatment Upcoming Encounters Date Type Department Care Team (Late st Contact Info) Description 03/04/2024 11:30 EDT Office Visit [facility] Interventional Pain [address] [place] [address] Percy Molina MD 62 [facility] [address] [place] [phone] 04/26/2024 9:15 EDT Office Visit [facility] Interventional Pain [address] [place], [place] [phone] Percy Molina MD 62 [facility] [address] [place] [address] 01/25/2026 12:00 EDT Office Visit [facility] Hematology & Oncology - [address] [phone] Jorge Lim MD [address] [place] [address] [address] 2 [place] [phone] documented as of this encounter Visit Diagnoses Diagnosis Left shoulder pain, unspecified chronicity- Primary documented in this encounter Care Teams Glass Inspector Relationship Specialty Start Date End Date Diya Gifford MD [address] [place] [phone] PCP - General 07/26/19 documented as of this encounter
--- OUTSIDE RECORDS SUMMARY | 2024-02-23 17:20 | XMS_ITS | Encounter Summary ---
Author Organization [facility] Address [address] [place] [address] Care Team Providers Care Heel Nail Rasper Name Role Phone Unavailable Primary Care Provider Unavailabl e Encounter Details Date Type Department Care Team (Latest Contact Info) Description 04/08/2006 9:13 EDT - 04/08/2006 11:59 EDT Hospital Encounter [facility] - Other [address] [place] [address] Jeet Guan MD Discharge Disposition: Auto Discharge [...] Description 03/04/2024 11:30 EDT Office Visit [facility] Interventional Pain [address] [place], [place] [phone] Percy Molina MD 62 [facility] [address] [place] [address] 04/26/2024 9:15 EDT Office Visit [facility] Interventional Pain [address] [place] [address] Percy Molina MD [address] [place] [address] 01/25/2026 12:00 EDT Office Visit [facility] Hematology & Oncology - [address] [phone] Jorge Lim MD 111 [facility], [address] 2 [place] [phone] documented as of this encounter Visit Diagnoses Not on filedocumented in this encounter
--- OUTSIDE RECORDS SUMMARY | 2024-02-23 17:20 | XMS_ITS | Encounter Summary ---
Author Organization [facility] Address [address] [place] [address] Care Team Providers Care Electro Winning Operator Name Role Phone Juan Luis Moore MD Primary Care Provider [phone] Reason for Visit * Reason Comments Follow-up sx 08/01/16 Encounter Details Date Type Department Care Team (Late st Contact Info) Description 08/18/2016 11:15 EST Office Visit [facility] Plastic, Reconstructive & Cosmetic Surgery - [address], [address] [place] [address] Juliano Penny MD [address] [place] [phone] Surgical wound infection, initial encounter (Primary Dx) Social History Tobacco Use Types Packs/Day Years Used Date Smoking Tobacco: Never Alcohol Use Standard Drinks/Week Comments No 0 (1 standard drink = 0.6 oz pur e alcohol) Sex and Gender Information Value Date Recorded Sex Assigned at Female 09/21/2023 8:38 EDT Gender Identity Female 06/08/2019 10:16 EST Sexual Orientation Not on file documented as of this encounter Ordered Prescriptions Prescription Sig Dispensed Refills Start Date End Da te cephALEXin (KEFLEX) 500 mg capsule Take 1 Cap by mouth 4 times daily for 7 days. 28 Cap 08/18/2016 08/25/2016 documented in this encounter Progress Notes * Juliano Penny MD - 08/18/2016 1117 EST SUBJECTIVE: Marilin Allen returns in followup from secondary septorhinoplasty with composite tissue graft on 08/01/2016. She is having some pain and redness in her left ear donor site. OBJECTIVE: On examination, she is in no distress. Her nose is healing well, without sign of infection or dehiscence. Graft is in place and shows early vascularization. Her left ear has erythema and swelling and is tender IMPRESSION: POD #17. Possible surgical wound infection left ear PLAN: Keflex 500 mg QID x 7 days. We discussed Ok to blow nose gently blowing her nose. Follow up 1week. documented in this encounter Plan of Treatment Upcoming Encounters Date Type Department Care Team (Late st Contact Info) Description 03/04/2024 11:30 EDT Office Visit [facility] Interventional Pain [address] [place] [address] Percy Molina MD [address] [place] [address] [place] [phone] 04/26/2024 9:15 EDT Office Visit [facility] Interventional Pain [address] [place], [place] [phone] Percy Molina MD [address] [place] [address] [place] [phone] 01/25/2026 12:00 EDT Office Visit [facility] Hematology & Oncology - [facility] [address] [place], [place] [phone] Jorge Lim MD [address] [place] [address], [address] [place] [address] documented as of this encounter Visit Diagnoses Diagnosis Surgical wound infection, initial encounter- Primary documented in this encounter Care Teams Electro Winning Operator Relationship Specialty Start Date End Date Juan Luis Moore MD PCP - General 02/04/16 07/25/19 documented as of this encounter
--- OUTSIDE RECORDS SUMMARY | 2024-02-23 17:20 | XMS_ITS | Encounter Summary ---
Author Organization [facility] Address [address] [place] [address] Care Team Providers Care Emergency Vehicle Operations Instructor Name Role Phone Unavailable Primary Care Provider Unavailabl e Encounter Details Date Type Department Care Team (Latest Contact Info) Description 08/17/2000 6:10 EST - 08/18/2000 11:59 EST Hospital Encounter [facility] General Surgery Unit [address] [place], [place] [phone] Evelin Roa MD Laub, Juliano Rush MD [address] [facility] [address] [place] [address] Discharge Disposition: Home or Self Care Social [...] Info) Description 03/04/2024 11:30 EDT Office Visit [facility] Interventional Pain [address] [place] [address] Percy Molina MD 62 [facility] [address] [place] [address] 04/26/2024 9:15 EDT Office Visit [facility] Interventional Pain [address] [place] [address] Percy Molina MD 62 [facility] [address] [place] [address] 01/25/2026 12:00 EDT Office Visit [facility] Hematology & Oncology - [facility] [address] [place] [address] Jorge Lim MD 111 [facility], Level 2 [place] [address] documented as of this encounter Procedures Procedure Name Priority Date/Time Associated Diagnosis Comments SURGICAL PATHOLOGY Routine 08/17/2000 0:00 EST documented in this encounter Results * SURGICAL PATHOLOGY (08/17/2000 0:00 EST) Pathology Report: SURGICAL PATHOLOGY REPORT Reports generated via electronic interface contain original data; however they are lacking the format of the original report. Caution should be taken when reading/interpreti ng unformatted reports. Name: ? THONG HESTER ? Accession #: ? [id number] ? : ? 1975 (Age: 25) ??F ? Collect Date: ? 08/17/2000 ? Location: ? B006 ? Receive Date: ? 08/17/2000 ? Provider: EVELIN ROA MD Copy to: ? Final Pathologic Diagnosis: A. ?Nasal mucosa, biopsy: 1. ?Benign nasal sinus mucosa with chronic inflammation and thick wall vessels, consistent with nasal turbinate. B. ?Skin of abdomen, punch biopsy: 1. ?Dermatofibroma. ??See comment. Comment: ? This case has been reviewed in consultation with Dr. Swetha Garay. ??(Dr. New)/marito Document reviewed and electronically signed by: RODOLFO CALDERON MD Report ??Date: 08/19/2000 17:29 By the signature above, the attending physician certifies that he/she has personally conducted a gross and/or microscopic examination of the described specimens and rendered or confirmed the above diagnosis. Specimen(s) Received: A. ?Middle turbinate ? (#1) B. ?Pigmented lesion on abd wall (#2) Clinical History: ? Oral-nasal defect Gross Description: ? Received in normal saline labelled Hester and middle turbinate ? is a 1.2 x 0.5 x 0.2 cm pink-red piece of soft tissue. ??The specimen is submitted intact in its entirety as (A). Received in normal saline labelled Hester and pigmented lesion on abd wall is a punch biopsy of skin which measures 0.2 cm in diameter by 0.3 cm in thickness. ??The cutaneous surface has a red mottled papule. ??The specimen is submitted intact in its entirety as (B). ??(Dr. New)/heather End of Report DOUGLAS ALEMAN 08/17/2000 08/17/2000 15: 37 EST Evelin Roa MD PATHOLOGY ORDERABLES DOUGLAS ALEMAN [address] [place] [address] documented in this encounter Visit Diagnoses Not on filedocumented in this encounter
--- OUTSIDE RECORDS SUMMARY | 2024-02-23 17:20 | XMS_ITS | Encounter Summary ---
Author Organization [facility] Address [address] [place] [address] Care Team Providers Care Automatic Beading Lathe Operator Name Role Phone Dangelo Reynolds MD Primary Care Provider Un available Encounter Details Date Type Department Care Team (Latest Contact Info) Description 02/05/2015 8:50 EDT - 02/05/2015 23:59 EDT Hospital Encounter [address] [address] Unknown, Provider, Discharge Disposition: Home or Self Care Social History Tobacco Use Types Packs/Day Years Used Date Smoking Tobacco: Never Assessed Sex and Gender Information Value Date Recorded Sex Assigned at Female 09/21/2023 8:38 EDT Gender Identity Female 06/08/2019 10:16 EST Sexual Orientation Not on file documented as of this encounter Medications at Time of Discharge Medication Sig Dispensed Refills Start Date End Date gabapentin (NEURONTIN) 400 mg capsule Take 2 Capsules by mouth daily. 07/29/2010 oxycodone-acetaminophen (PERCOCET) 5-325 mg per tablet Take 2 Tabs by mouth every 8 hours as needed for Pain. 24 Tab 0 07/29/2010 amitriptyline (ELAVIL) 50 mg tablet Take 50 mg by mouth at bedtime as needed. 07/29/2010 03/19/2022 documented as of this encounter Discharge Disposition Disposition Code Departure Means Destination Home or Self Detention documented in this encounter Plan of Treatment Upcoming Encounters Date Type Department Care Team (Late st Contact Info) Description 03/04/2024 11:30 EDT Office Visit [facility] Interventional Pain [address] [place] [address] Percy Molina MD 62 [facility] [address] [place] [address] 04/26/2024 9:15 EDT Office Visit [facility] Interventional Pain [address] [place] [address] Percy Molina MD 62 [facility] [address] [place] [address] 01/25/2026 12:00 EDT Office Visit [facility] Hematology & Oncology - [address] [phone] Jorge Lim MD [address] [place] [address] [address] 2 [place] [phone] documented as of this encounter Visit Diagnoses Not on filedocumented in this encounter Care Teams Automatic Beading Lathe Operator Relationship Specialty Start Date End Date Dangelo Reynolds MD PCP - General 07/29/10 02/03/16 documented as of this encounter
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
--- OUTSIDE RECORDS SUMMARY | 2024-02-23 17:20 | XMS_ITS | Encounter Summary ---
Author Organization [facility] Address [address] [place] [address] Care Team Providers Care Water Softener Service Supervisor Name Role Phone Juan Luis Moore MD Primary Care Provider [phone] Encounter Details Date Type Department Care Team (Late st Contact Info) Description 06/09/2017 Results Only [facility] [phone] Liban Lewis MD [address] [place] [phone] Social History Tobacco Use Types Packs/Day Years [...] [facility] [address] [place] [address] Percy Molina MD [address] [facility] [address] [place] [address] 04/26/2024 9:15 EDT Office Visit [facility] [address] [place] [address] Percy Molina MD [address] [facility] [address] [place] [address] 01/25/2026 12:00 EDT Office [facility] & On[facility] - [facility] [address] [place], [place] [phone] Jorge Lim MD [address] [facility] [address] [place] [phone] documented as of this encounter Procedures Procedure Name Priority Date/Time Associated Diagnosis Comments PAP TEST- RESULT ONLY Routine 06/09/2017 0:00 EST documented in this encounter Results * PAP TEST- RESULT ONLY (06/09/2017 0:00 EST) Pathology Report: CYTOPATHOLOGY REPORT Reports generated via electronic interface contain original data; however they are lacking the format of the original report. Caution should be taken when reading/interpreti ng unformatted reports. Name: ? THONG HESTER ? Accession #: ? [id number] ? : ? 1975 (Age: 42) ??F ?Collect Date: ? 06/09/2017 ? Location: ? [facility] ? Receive Date: ? 06/10/2017 ? Provider: LIBAN LEWIS MD Copy to: ? Final Report SPECIMEN ADEQUACY ? Satisfactory for Evaluation - transformation zone component present GENERAL CATEGORIZATION ? Negative for Intraepithelial Lesion or Malignancy ?? Hormonal/Contracep tive status: Bilateral Tubal Ligation Previous Gynecologic Pathology: ASC-US: 01/2016 LSIL: LGSIL 2013 Infection History: Neg for HPV: 01/2016 Pos for HPV: 2013 Specimen/Source: ??Pap Test, Cervix/Endocervix, ThinPrep Imaging System with manual evaluation Document reviewed and electronically signed by: ? Cindy Alicea, [facility](ASCP) ? Report ??Date: 06/19/2017 13:57 HPV with Pap Test ? Date Ordered: ? 06/19/2017 ? Status: ?? Signed Out ?Date Complete: ? 06/24/2017 ? By: ??System Interface ? Date Reported: ? 06/24/2017 ? Interpretation RESULT: Negative for HPV. No E6 or E7 mRNA is detected from HPV types 16,18,31,33,35, 39,45,51,52,56,58, 59,66, and 68 by dough maker mediated amplification. Comments Document reviewed and electronically signed by: ? System Interface ? Report date: 06/24/2017 By the signature above, the attending physician certifies that he/she has personally conducted a gross and/or microscopic examination of the described specimens and rendered or confirmed the above diagnosis. End of Report [facility] 06/09/2017 06/10/2017 Liban Lewis MD PATHOLOGY ORDERABLES [facility] [address] [place] [address] documented in this encounter Visit Diagnoses Not on filedocumented in this encounter Care Teams Water Softener Service Supervisor Relationship Specialty Start Date End Date Juan Luis Moore MD PCP - General 02/04/16 07/25/19 documented as of this encounter
--- OUTSIDE RECORDS SUMMARY | 2024-02-23 17:20 | XMS_ITS | Encounter Summary ---
Author Organization [facility] Address [address] [place] [address] Care Team Providers Care Cruller Maker Machine Name Role Phone Unavailable Primary Care Provider Unavailabl e Encounter Details Date Type Department Care Team (Late st Contact Info) Description 10/31/2003 9:58 EDT Hospital Encounter [facility] - Other [address] [place] [address] Tisha Sosa MD [address] [place] [address] Social History Tobacco Use Types Packs/Day Years [...] Info) Description 03/04/2024 11:30 EDT Office Visit [facility] Inter[facility] Pain [address] [place] [address] Percy Molina MD [address] [facility] [address] [place] [address] 04/26/2024 9:15 EDT Office Visit [facility] Interventional Pain [address] [place] [address] Percy Molina MD [address] [place] [address] 01/25/2026 12:00 EDT Office Visit [facility] Hematology & Oncology - [facility] [address] [place] [address] Jorge Lim MD [address] [facility], [address] [place] [address] documented as of this encounter Procedures Procedure Name Priority Date/Time Associated Diagnosis Comments CYTOPATHOLOGY Routine 10/31/2003 0:00 EDT documented in this encounter Results * CYTOPATHOLOGY (10/31/2003 0:00 EDT) Pathology Report: CYTOPATHOLOGY REPORT Reports generated via electronic interface contain original data; however they are lacking the format of the original report. Caution should be taken when reading/interpreti ng unformatted reports. Name: ? THONG HESTER ? Accession #: ? [id number] : ? 1975 (Age: 28) ??F ?Collect Date: ? 10/31/2003 Location: ? [facility] ? Receive Date: ? 11/01/2003 Provider: ?TISHA SOSA MD Copy to: ? Specimen/Source: ?ThinPrep Pap Test, Cervix/Endocervix Last Menstrual Period: ? 10/19/03 Menstrual/Pregnanc y Status: ? Post Hormonal/Contracep tive Status: ? Oral contraceptives: Alesse Other: ? HPVA - HPV testing requested if ASC-US on the current ThinPrep Pap test. ? SPECIMEN ADEQUACY ? Satisfactory for Evaluation - transformation zone component present GENERAL CATEGORIZATION ? Negative for Intraepithelial Lesion or Malignancy ? Document reviewed and electronically signed by: ? BLANCA Kim(ASCP) ? Report Date: ??11/06/2003 12:13 End of Report [facility] 10/31/2003 11/01/2003 Tisha Sosa MD PATHOLOGY [facility]AMI MORALES DOUGL[facility] ALEMAN [address] [place] [address] documented in this encounter Visit Diagnoses Not on filedocumented in this encounter
--- OUTSIDE RECORDS SUMMARY | 2024-02-23 17:20 | XMS_ITS | Encounter Summary ---
Author Organization [facility] Address [address] [place] [address] Care Team Providers Care Commodity Broker Name Role Phone Diya Gifford MD Primary Care Provide r Reason for Referral * Radiology Services (Routine) - Closed Specialty Diagnoses / Procedures Referred By Ar salinas Referred To Contact Radiology Diagnoses Left shoulder pain Procedures MR SHOULDER WO CONTRAST LEFT Mau Rocha MD [address] [place] [address] Referral ID Status Reason Start Date Expiration Date Visits Re quested Visits Authorized [id number] Closed 05/05/2019 08/03/2019 1 1 Reason for Visit * Radiology Services (Routine) - Closed Specialty Diagnoses / Procedures Referred By Ar salinas Referred To Contact Radiology Diagnoses Left shoulder pain Procedures MR SHOULDER WO CONTRAST LEFT Mau Rocha MD [address] [place] [address] Referral ID Status Reason Start Date Expiration Date Visits Re quested Visits Authorized [id number] Closed 05/05/2019 08/03/2019 1 1 Encounter Details Date Type Department Care Team (Latest Contact Info) Description 07/29/2019 11:57 EST - 07/29/2019 23:59 EST Hospital Encounter [facility] [address] [place] [address] Left shoulder pain Discharge Disposition: Home or Self Care [...] 03/04/2024 11:[address] [facility] Interventional Pain [address] [place] [address] Percy Molina MD [address] [place] [address] [place] [phone] 04/26/2024 9:[address] [facility] Interventional Pain [address] [place] [address] Percy Molina MD [address] [place] [address] [place] [phone] 01/25/2026 12:00 EDT Office Visit [facility] Hematology & Oncology - [address] [phone] Jorge Lim MD [address] [place] [address], [address] [place] [phone] documented as of this encounter Procedures Procedure Name Priority Date/Time Associated Diagnosis Comments MR SHOULDER WO CONTRAST LEFT Routine 07/29/2019 14:05 EST Left shoulder pain documented in this encounter Results * MR SHOULDER WO CONTRAST LEFT (07/29/2019 14:05 EST) Anatomical Region Laterality Modality Upper Extremities Left Magnetic Reson ance 08/02/2019 13:0 2 EST Narrative 08/02/2019 13:02 EST STUDY: MR SHOULDER WO CONTRAST LEFT ??07/29/2019 1:32 PM TECHNIQUE: Routine multiplanar and multisequence MR images of the left shoulder were obtained without contrast administration. HISTORY: Left shoulder pain COMPARISON: None. FINDINGS Rotator Cuff: Supraspinatus: Tendinosis is seen at the distal aspect of the supraspinatus tendon with no retracted or torn fibers or fluid-filled gaps. There is no muscle atrophy or fatty infiltration. Infraspinatus: There is a small low-grade partial intrasubstance tear in the proximal aspect of the infraspinatus tendon at the myotendinous junction (sagittal T2 #10-12). No muscle atrophy or fatty infiltration is seen. Teres Minor: No discrete tear of the teres minor tendon. No fatty infiltration or muscle atrophy. Subscapularis: The subscapularis tendon is mildly tendinotic without discrete tear. No fatty infiltration or muscle atrophy. Long head biceps tendon: ??There is a mild amount of tenosynovitis along the extra-articular portion of the long head of the biceps tendon at the level of the proximal bicipital groove. There is mild tendinosis at the intra-articular portion without discrete tear. Labrum: ??Degenerative changes of the labrum are present at the posterior superior aspect. Note is made of a thin smoothly marginated separation focally in the anterior superior labrum which may correlate to a sublabral foramen. ?? Cartilage: ??Minimal degenerative changes are present in the cartilage of the glenohumeral joint. Joint Space: ??No joint effusion or definite intra-articular body. There is thickening of the capsule at the level of the axillary recess and rotator interval, the latter as demonstrated by indistinctness of the coracohumeral ligament. Bone Marrow: ??Grossly unremarkable. Acromioclavicular Joint: ??Mild to moderate degenerative changes are present at the AC joint. Subacromial-Subdeltoid Bursa: ??There is a trace amount of bursal fluid. IMPRESSION MRI LEFT SHOULDER: 1. Small low-grade partial intrasubstance tear in the proximal aspect of the infraspinatus tendon at the myotendinous junction. No atrophy of infiltration of the infraspinatus muscle. 2. Tendinosis of the distal supraspinatus and subscapularis tendons without discrete tear. No atrophy or fatty infiltration or the respective muscles. 3. Thickening of the joint capsule at the level of the axillary recess and rotator interval may be seen in the clinical entity of adhesive capsulitis. Please correlate accordingly. 4. Mild tenosynovitis along the extra-articular portion of the long head of the biceps tendon at the level of the proximal bicipital groove. Mild tendinosis of the intra-articular portion without discrete tear. 5. Mild to moderate degenerative changes are present at the AC joint. I have personally reviewed the images and the above interpretation and agree with the findings. Procedure Note Sukumar Arreguin MD - 08/02/2019 STUDY: MR SHOULDER WO CONTRAST LEFT 07/29/2019 1:32 PM TECHNIQUE: Routine multiplanar and multisequence MR images of the leftshoulder were obtained without contrast administration. HISTORY: Left shoulder pain COMPARISON: None. FINDINGS Rotator Cuff: Supraspinatus: Tendinosis is seen at the distal aspect of thesupraspinatus tendon with no retracted or torn fibers or fluid-filledgaps. There is no muscle atrophy or fatty infiltration. Infraspinatus: There is a small low-grade partial intrasubstance tear inthe proximal aspect of the infraspinatus tendon at the myotendinousjunction (sagittal T2 #10- 12). No muscle atrophy or fatty infiltration isseen. Teres Minor: No discrete tear of the teres minor tendon. No fattyinfiltration or muscle atrophy. Subscapularis: The subscapularis tendon is mildly tendinotic withoutdiscrete tear. No fatty infiltration or muscle atrophy. Long head biceps tendon: There is a mild amount of tenosynovitis alongthe extra-articular portion of the long head of the biceps tendon at thelevel of the proximal bicipital groove. There is mild tendinosis at theintra-articular portion without discrete tear. Labrum: Degenerative changes of the labrum are present at the posteriorsuperior aspect. Note is made of a thin smoothly marginated separationfocally in the anterior superior labrum which may correlate to a sublabralforamen. Cartilage: Minimal degenerative changes are present in the cartilage ofthe glenohumeral joint. Joint Space: No joint effusion or definite intra-articular body. There isthickening of the capsule at the level of the axillary recess and rotatorinterval, the latter as demonstrated by indistinctness of thecoracohumeral ligament. Bone Marrow: Grossly unremarkable. Acromioclavicular Joint: Mild to moderate degenerative changes arepresent at the AC joint. Subacromial-Subdeltoid Bursa: There is a trace amount of bursal fluid. IMPRESSION MRI LEFT SHOULDER: 1. Small low-grade partial intrasubstance tear in the proximal aspect ofthe infraspinatus tendon at the myotendinous junction. No atrophy ofinfiltration of the infraspinatus muscle. 2. Tendinosis of the distal supraspinatus and subscapularis tendonswithout discrete tear. No atrophy or fatty infiltration or the respectivemuscles. 3. Thickening of the joint capsule at the level of the axillary recess androtator interval may be seen in the clinical entity of adhesivecapsulitis. Please correlate accordingly. 4. Mild tenosynovitis along the extra-articular portion of the long headof the biceps tendon at the level of the proximal bicipital groove. Mildtendinosis of the intra-articular portion without discrete tear. 5. Mild to moderate degenerative changes are present at the AC joint. I have personally reviewed the images and the above interpretation andagree with the findings. Mau Rocha MD IMG MRI ORDERABLE S documented in this encounter Visit Diagnoses Diagnosis Left shoulder pain Pain in joint, shoulder region documented in this encounter Care Teams Commodity Broker Relationship Specialty Start Date End Date Diya Gifford MD [address] [facility] [address] [place] [address] PCP - General 07/26/19 documented as of this encounter
--- OUTSIDE RECORDS SUMMARY | 2024-02-23 17:20 | XMS_ITS | Encounter Summary ---
Author Organization [facility] Address [address] [place] [address] Care Team Providers Care Landscaping Specialist Name Role Phone Diya Gifford MD Primary Care Provide r Encounter Details Date Type Department Care Team (Latest Contact Info) Description 01/31/2020 Travel Social History Tobacco Use Types Packs/Day [...] Description 03/04/2024 11:[address] [facility] Interventional Pain [address] [place] [address] Percy Molina MD [address] [place] [address] [address] [place] [address] 04/26/2024 9:15 EDT Office Visit [facility] Interventional Pain [address] [place], [place] [phone] Percy Molina MD [address] [facility] [address] [place] [address] 01/25/2026 12:00 EDT Office Visit [facility] Cancer Center Hematology & Oncology - [facility] [address] [place], [place] [phone] Jorge Lim MD [address] [facility], [address] [place] [phone] documented as of this encounter Visit Diagnoses Not on filedocumented in this encounter Care Teams Landscaping Specialist Relationship Specialty Start Date End Date Diya Gifford MD [address] [place] [address] [address] [place], [place] [phone] PCP - General 07/26/19 documented as of this encounter
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
--- OUTSIDE RECORDS SUMMARY | 2024-02-23 17:20 | XMS_ITS | Encounter Summary ---
Author Organization [facility] Address [address] [place] [address] Care Team Providers Care Cnc Programmer Name Role Phone Dangelo Reynolds MD Primary Care Provider Un available Encounter Details Date Type Department Care Team (Latest Contact Info) Description 08/14/2014 15:05 EST - 08/14/2014 23:59 EST Hospital Encounter [address] [address] Unknown, Provider, Discharge Disposition: Home or Self [...] Code Departure Means Destination Home or Self Nursing Home documented in this encounter Plan of Treatment Upcoming Encounters Date Type Department Care Team (Late st Contact Info) Description 03/04/2024 11:30 EDT Office Visit [facility] Interventional Pain [address] [place] [address] Percy Molina MD [address] [facility] [address] [place] [address] 04/26/2024 9:15 EDT Office Visit [facility] Interventional Pain [address] [place] [address] Percy Molina MD [address] [facility] [address] [place] [address] 01/25/2026 12:00 EDT Office Visit [facility] Hematology & Oncology - [address] [phone] Jorge Lim MD [address] [place] [address] [address] [place] [phone] documented as of this encounter Visit Diagnoses Not on filedocumented in this encounter Care Teams Cnc Programmer Relationship Specialty Start Date End Date Dangelo Reynolds MD PCP - General 07/29/10 02/03/16 documented as of this encounter
--- OUTSIDE RECORDS SUMMARY | 2024-02-23 17:20 | XMS_ITS | Encounter Summary ---
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 Juliano Penny MD [address] [place] [address] [address] [place] [address] [place] [address] [address] [place] [address] Referral ID Status Reason Start Date Expiration Date V isits Requested Visits Authorized [id number] Closed Specialty Services Required 02/05/2016 1 1 Encounter Details Date Type Department Care Team (Late st Contact Info) Description 04/24/2016 11:00 EDT Office Visit [facility] ENT- [address] [place], [place] [id number] Juliano Gomez MD TMJ syndrome (Primary Dx); 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 female in consultation for symptoms of Intermittent pain in her right ear. 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 She has had a number of surgeries for this and is scheduled for another septorhinoplasty surgery by Dr Penny on 05/16/2016. Part of the planning for this surgery is that a cartilage graft from the left auricle may be required. Ms Allen has a history of having had myringotomy tubes when she was a child. She describes that atage 12 one of these myringotomy tubes apparently became either intratympanic or in her middle ear and a postauricular incision with some type of ear or mastoid surgery was required at that time. Since that postauricular incision, she has had sensitivity or tenderness around her ear. For the past few months she has noticed intermittent pain in this right ear that feels deep and makes her want to put a put a brush inside. She indicates that her hearing does not change when this discomfort happens nor does she experience dizziness or lightheadedness. She also denies drainage from her ear. She has had examinations in the past, which I have not seen signs of otitis media but ant ibiotics have been prescribed just in case. Ms Allen has not had any major dental procedure recently. She does get her teeth cleaned every 6 months. She did not feel like she was clenching or grinding her teeth but obviously is unsure about what happens when she sleeps. Curiously, the pains that she gets can last as short as a few minutes and as long as several hours.They never last all day and can have a sharp beginning and end. Ms Allen says that she intermittently chews gum, but has not participated in any unusual jaw motion or eating in the past few months. Ms Allen had a facial bone CT scan performed on 02/28/2016. This was done at [facility], but a copy was in our PACS system. She and I reviewed this scan on our office computer. It did show air-containing middle ears bilaterally with generally inappropriately positioned ossicles. History was obtained from the patient and friend and the patient's medical care was discussed with the patient and friend. Allergies include: Penicillins and Shellfish containing products Patient Active Problem List Diagnosis ??? Unilateral complete cleft palate with cleft lip ??? Refractory obstruction of nasal airway ??? TMJ syndrome Outpatient Encounter Prescriptions as of 04/24/2016 Medication Sig Dispense Refill ??? albuterol (ACCUNEB) 0.63 mg/3 mL nebulizer solution Take 0.63 mg by nebulization every 4 hours as needed for Wheezing. ??? amitriptyline (ELAVIL) 50 mg tablet Take 50 mg by mouth at bedtime as needed. ??? cetirizine (ZYRTEC) 10 mg tablet Take 10 mg by mouth daily. ??? [DISCONTINUED] diclofenac (VOLTAREN) 50 mg EC tablet Take 50 mg by mouth 2 times daily. ??? doxycycline (ADOXA) 100 mg tablet Take 100 mg by mouth 2 times daily. ??? [DISCONTINUED] famotidine (PEPCID) 20 mg tablet Take 20 mg by mouth 2 times daily. ??? gabapentin (NEURONTIN) 400 mg capsule Take 400 mg by mouth 4 times daily. ??? [DISCONTINUED] hydrOXYzine (ATARAX) 25 mg tablet Take 25 mg by mouth 3 times daily. ??? [DISCONTINUED] metoprolol XL (TOPROL-XL) 100 mg tablet Take 100 mg by mouth daily. ??? omeprazole (PRILOSEC) 20 mg capsule Take 20 mg by mouth daily. ??? oxycodone-acetaminophen (PERCOCET) 5-325 mg per tablet Take 2 Tabs by mouth every 8 hours as needed for Pain. 24 Tab 0 ??? venlafaxine (EFFEXOR-XR) 150 mg XR capsule Take 150 mg by mouth daily. ??? zolpidem (AMBIEN) 5 mg tablet Take 5 mg by mouth daily. No facility-administered encounter medications on file as of 04/24/2016. Past Medical History Diagnosis Date ??? Cleft palate History reviewed. No pertinent past surgical history. History reviewed. No pertinent family history. Patient reports that she has never smoked. She does not have any smokeless tobacco history on file.She reports that she does not drink alcohol. REVIEW OF SYSTEMS: Present and on the chart. Greater than 10 areas reviewed. Pertinent positives include ear pain, nasal congestion, SOB, all other systems are negative. PHYSICAL EXAMINATION CONSTITUTIONAL: APPEARANCE: The patient appears alert, cooperative, and comfortable and nasal breathing status slightly impaired. ABILITY TO COMMUNICATE / VOICE: Normal, Hearing conversational PSYCHIATRIC: The patient was alert & oriented x 3. HEAD AND FACE: INSPECTION: Normal without apparent scars, lesions, or masses. PALPATION: There are no masses or sinus tenderness. Right TMJ tenderness. SALIVARY GLANDS: Submandibular and Parotid glands are normal bilaterally NEUROLOGIC: Facial strength is intact and symmetrical bilaterally. Cranial nerves were generally intact bilaterally. EYE: Conjunctival color is white; Extra ocular muscles intact bilaterally: Yes EXTERNAL EAR & NOSE: No external ear or nose deformity noted. She did have nasal and lip asymmetry consistent with a cleft lip & palate history. Patient did move air easily in and out of nosewhile seated in exam chair. EARS, NOSE, MOUTH AND THROAT: OTOSCOPY: Right external auditory canal: patent and non-inflamed Left external auditory canal: patent and non-inflamed Right tympanic membrane: intact without retraction, perforation or effusion. Some TM whiteness consistent with childhood ME infections. Left tympanic membrane: intact without retraction, perforation or effusion NOSE: airways patent, mucosa pink ORAL CAVITY & OROPHARYNX: pink mucosa, mobile tongue, palate normally mobile. Scar in right gingivo-buccal area NECK: GENERAL: Supple, no asymmetry or crepitus, trachea midline THYROID: No obvious swelling CARDIOVASCULAR: Patient did not have cervical vein distention. RESPIRATORY: Moves air in and out of lungs without difficulty. SKIN: warm and dry LYMPHATIC: CERVICAL LYMPH NODES: No pathologic cervical lymphadenopathy noted DIAGNOSIS AND TREATMENT PLAN has symptoms of TMJ syndrome and Eustachian Tube dysfunction. Currently she has healthy middle ears, and sensitive right TM joint. I recommended she try to rest her jaw joints, and request a nite guard next dental appointment. I will see her back as needed. Juliano Gomez MD 04/24/2016 documented in this encounter Plan of Treatment Upcoming Encounters Date Type Department Care Team (Late st Contact Info) Description 03/04/2024 11:30 EDT Office Visit [facility] Interventional Pain [address] [place] [address] Percy Molina MD [address] [facility] [address] [place] [address] 04/26/2024 9:15 EDT Office Visit [facility] Interventional Pain [address] [place] [address] Percy Molina MD [address] [facility] [address] [place] [address] 01/25/2026 12:00 EDT Office Visit [facility] Hematology & Oncology - [address] [phone] Jorge Lim MD [address] [place] [address] [address] [place] [phone] documented as of this encounter Visit Diagnoses Diagnosis TMJ syndrome- Primary 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 04/24/2016 famotidine (PEPCID) 20 mg tablet Take 20 mg by mouth 2 times daily. 04/24/2016 hydrOXYzine (ATARAX) 25 mg tablet Take 25 mg by mouth 3 times daily. 04/24/2016 metoprolol XL (TOPROL-XL) 100 mg tablet Take 100 mg by mouth daily. 04/24/2016 documented as of this encounter Historical Medications * This list may reflect changes made after this encounter. Medication Sig Dispensed Refills Start Date End Date omeprazole (PRILOSEC) 20 mg capsule Take 1 Capsule by mouth daily. cetirizine (ZYRTEC) 10 mg tablet Take 1 Tablet by mouth if needed. Reported on 07/08/2016 doxycycline (ADOXA) 100 mg tablet Take 100 mg by mouth daily. Reported on 07/08/2016 05/09/2022 added in this encounter Care Teams Systems Analyst Developer Relationship Specialty Start Date End Date Juan Luis Moore MD PCP - General 02/04/16 07/25/19 documented as of this encounter
--- OUTSIDE RECORDS SUMMARY | 2024-02-23 17:20 | XMS_ITS | Encounter Summary ---
Author Organization [facility] Address [address] [place] [address] Care Team Providers Care Telecine Operator Name Role Phone Juan Luis Moore MD Primary Care Provider [phone] Encounter Details Date Type Department Care Team (Latest Contact Info) Description 08/01/2016 11:18 EST - 08/01/2016 20:25 EST Hospital Encounter [facility] Perioperative Services- [facility] [address] [place] [address] Juliano Penny MD [address] [place] [address] [address] [place] [address] Refractory obstruction of nasal airway (Primary Dx) Discharge Disposition: Home or Self [...] Sign Reading Time Taken Comments Blood Pressure 130/86 08/01/2016 1930 EST Pulse - - Temperature 37.2 ??C (99 ??F) 08/01/20162007 EST Respiratory Rate 16 08/01/20162007 EST Oxygen Saturation 97% 08/01/20161999 EST Inhaled Oxygen Concentration - - Weight 72.6 kg (160 lb) 07/11/2016 0958 EST Height 149.9 cm (4' 11) 07/11/2016 0958 EST Body Mass Index 32.32 07/11/2016 0958 EST documented in this encounter Discharge Diagnoses Diagnosis J34.89 Other specified disorders of nose and nasal sinuses-J34.89[ICD-10-CM] J34.2 Deviated nasal septum-J34.2[ICD-10-CM] Q37.9 Unspecified cleft palate with unilateral cleft lip-Q37.9[ICD-10-CM] I10 Essential (primary) hypertension-I10[ICD-10-CM] K21.9 Gastro-esophageal reflux disease without esophagitis-K21.9[ICD-10-CM] F41.9 Anxiety disorder, unspecified-F41.9[ICD-10-CM] F32.9 Major depressive disorder, single episode, unspecified-F32.9[ICD-10-CM] Z79.899 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 03/19/2022 documented as of this encounter Ordered Prescriptions Prescription Sig Dispensed Refills Start Date End Da te Bacitracin 500 unit/gram ointment Apply pea-sized amount to inside of both nostrils twice daily for 2 weeks. 14 g 1 08/01/2016 12/03/2021 HYDROmorphone (DILAUDID) 2 mg tablet Take 1 Tab by mouth every 4 hours. Daily Max: 12 mg 20 Tab 08/01/2016 12/03/2021 methylPREDNISolone (MEDROL, CEDRIC,) 4 mg tablet follow package directions 1 Pack 08/01/2016 12/03/2021 azithromycin (ZITHROMAX) 250 mg tablet Take 2 tablets (500mg) by mouth on day 1, followed by 1 tablet (250mg) by mouth once daily on days 2 through 5. 6 Tab 08/01/2016 12/03/2021 ondansetron (ZOFRAN-ODT) 8 mg disintegrating tablet Take 1 Tab by mouth every 8 hours as needed for Nausea. 10 Tab 08/01/2016 12/03/2021 documented in this encounter Discharge Disposition Disposition Code Departure Means Destination Home or Self Care documented in this encounter Progress Notes * Mercy Colindres, RN - 08/01/20161951 EST Patient getting dressed, Dr. Schaefer at bedside to evaluate for discharge, patient reports new onset nausea. New orders received. PPatient back to bed, cool washcloth to forehead * Ashia Ng RN - 07/11/2016 1010 EST Marilin Allen has been instructed as follows regarding medication administration for the day of the scheduled procedure. Date of Surgery: 08/01/2016 Instructions for Taking Medications Day of Surgery Medication Sig Last Dose Hold DOS Take DOS amitriptyline (ELAVIL) 50 mg tablet Take 50 mg by mouth at bedtime as needed. hs cetirizine (ZYRTEC) 10 mg tablet Take 10 mg by mouth daily. Reported on 07/08/2016 Yes doxycycline (ADOXA) 100 mg tablet Take 100 mg by mouth daily. Reported on 07/08/2016 Yes gabapentin (NEURONTIN) 400 mg capsule Take 400 mg by mouth 4 times daily. Yes ibuprofen (MOTRIN) 600 mg tablet Take 600 mg by mouth every 6 hours as needed for Pain. Yes prn metoprolol XL (TOPROL-XL) 100 mg tablet Take 100 mg by mouth daily. Yes omeprazole (PRILOSEC) 20 mg capsule Take 20 mg by mouth daily. Yes oxycodone-acetaminophen (PERCOCET) 5-325 mg per tablet Take 2 Tabs by mouth every 8 hours as neededfor Pain. Yes prn UNABLE TO FIND Control 1 pil /day Yes venlafaxine (EFFEXOR-XR) 150 mg XR capsule Take 75 mg by mouth daily. hs zolpidem (AMBIEN) 5 mg tablet Take 5 mg by mouth at bedtime. hs Patient understands not to take any vitamins or supplements 7 days prior to surgery. Dr. Penny is okwith NSAIDS prior to surgery. * Mecca Santana RN - 05/02/2016 0942 EDT Marilin Allen has been instructed as follows regarding medication administration for the day of the scheduled procedure. Date of Surgery: 05/16/16 Instructions for Taking Medications Day of Surgery Medication Sig Last Dose Hold DOS Take DOS amitriptyline (ELAVIL) 50 mg tablet Take 50 mg by mouth at bedtime as needed. 05/15/16-prn cetirizine (ZYRTEC) 10 mg tablet Take 10 mg by mouth daily. Yes doxycycline (ADOXA) 100 mg tablet Take 100 mg by mouth daily. Yes gabapentin (NEURONTIN) 400 mg capsule Take 400 mg by mouth 4 times daily. Yes metoprolol XL (TOPROL-XL) 100 mg tablet Take 100 mg by mouth daily. Yes omeprazole (PRILOSEC) 20 mg capsule Take 20 mg by mouth daily. Yes oxycodone-acetaminophen (PERCOCET) 5-325 mg per tablet Take 2 Tabs by mouth every 8 hours as neededfor Pain. Yes-prn UNABLE TO FIND Control 1 pil /day Yes venlafaxine (EFFEXOR-XR) 150 mg XR capsule Take 75 mg by mouth daily. Yes zolpidem (AMBIEN) 5 mg tablet Take 5 mg by mouth at bedtime. 05/15/16 Pt verbalized understanding of medication instructions at this time. documented in this encounter H&P Notes * Juliano Penny MD - 08/01/2016 1959 EST The preoperative history and physical which was performed within 30 days of this procedure has beenreviewed and the clinically appropriate elements of the physical examination have been repeated. There are no changes to the documented history and physical or if so such changes are documented below. Visit Vitals ??? BP 112/83 (BP Cuff Location: Right arm, Patient Position: Semi fowlers) ??? Temp 37.2 ??C (99 ??F) (Oral) ??? Resp 16 ??? Ht (!) 149.9 cm (59) ??? Wt 72.6 kg (160 lb) ??? SpO2 100% ??? BMI 32.32 kg/m2 We discussed the incisions that would be necessary to accomplish her proposed surgery. We talked about the risks of the operation, including, but not limited to: hematoma, asymmetry, infection, long-term pain, anesthetic complications, and recurrence of condition. Scar from the procedure would be permanent, but will fade to some extent with time. The patient stated she accepts those risks. The [facility] consent forms were reviewed and I believe that informed consent was given; we will go ahead with the surgery as planned. 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 PROCEDURE: 1. Secondary septorhinoplasty through an open approach, CPT = 76825. 2. Composite graft from left ear to nose of conchal skin and cartilage, CPT = 99424. 3. Repair nasal vestibular stenosis (CPT = 72465) 4. In-fracture of the left inferior turbinate. (CPT = 81003) ANESTHESIA: General endotracheal. 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 This has left her with residual right naris obstruction however, residual septal deviation, and residual nasal deformity. She desires to have secondary surgery to improve the situation. FINDINGS: At the time of surgery, she had a large anterior septal perforation; posterior to this, she had a bony septal deviation to the right, obstructing her nasal airway. Her lower lateral cartilages were found to be previously transected. She had cephalic rotation of her nasal tip, lacking dorsal support. She had shortage of vestibular lining in her right nares, with collapse of her internal nasal valve. NARRATIVE: After preoperative discussion, patient gave informed consent, was properly identified, brought to the operating room. General endotracheal anesthesia was obtained. Her face was prepped anddraped in the usual sterile fashion and a time-out was called. The patient's identity, laterality, and procedure were verified. Her nose was infiltrated with 0.5% bupivacaine with 1:200,000 epinephrine and packed with 4% cocaine. Surgery was begun by incising her preexisting scar on her columella. The columellar flap was elevated from inferior to superior. The lower lateral cartilages were identified and carefully preserved. These were found to be transected. Once these were identified and the nasal dorsal flap elevated, the decision was made to go intranasally to perform the septoplasty. Septum was infiltrated with 0.5% bupivacaine. A right septal incision was made posterior to the anterior perforation. The bony septalspur was identified and removed with a Tobias rongeur. Her left inferior turbinate was in-fractured with a [place] elevator. Hemostasis was established with electrocautery. A decision was made to perform a composite skin, subcutaneous tissue, and cartilage graft from the left amy to her naris. This was designed in an X- shaped fashion with the skin incised. Flaps wereelevated superiorly and inferiorly, and a cartilage graft perpendicular to the skin paddle was elevated. This was removed from the ear. Hemostasis was established with electrocautery. Additional cartilage was removed and this was closed using 5-0 Monocryl and 5-0 Rapide. The right nasal lining was then incised, and the composite graft was inset using 5-0 Rapide sutures. The medial cartilage portion of the graft was then secured to her right lower lateral cartilage with 5-0 nylon sutures. A transfixion suture of 3-0 PDS was placed to secure the lateral portion of this graft. Interdomal and intercrural sutures of 5-0 nylon were placed in her lower lateral cartilages in order to improve her dorsal support. Her incisions were then closed using 5-0 Rapide intranasally and 5-0 Monocryl and 6-0 Prolene in her columella. Her columellar incision on the right was advanced and closed in a V to Y local tissue rearrangement also with 5-0 Monocryl and 6-0 Prolene. A nasal dorsal splint was applied. The patient was extubated and brought to the postanesthetic care unit in stable condition. I was present for theentire case and participated in all bull and critical events of this case. ESTIMATED BLOOD LOSS: Minimal. FLUID GIVEN: 1 L of lactated Ringer's. SPECIMENS: None sent. PACKS AND DRAINS: None retained. COMPLICATIONS: None apparent. URINE OUTPUT: None recorded. Unless otherwise noted, there were no complications, no blood loss, no cultures obtained, no specimens removed, and no drains retained. Juliano Penny MD, FACS 05 51 PM / Juliano Penny MD, FACS cn Confirmation: [id number] Dictation ID: [id number] cc: Portillo Moore MD documented in this encounter Miscellaneous Notes * Anesthesia Post-Eval - Dangelo Schaefer MD - 08/01/20162023 EST Post Anesthesia Evaluation Note Date of Service: 08/01/2016 Marilin Allen, a 41 y.o. year old female has received General Anesthesia today. She has been evaluated, assessed and discharged from anesthesia care with stable cardiorespiratory function and alert mental status. The last set of recorded vital signs and pain rating were reviewed: Temp: 37.2 ??C (99 ??F), Heart Rate: 112 BPM, BP: 130/86, Resp: 16, SpO2: 97 %,Numeric Pain Level (Scale 1-10): 10 (patient reports tolerable) Collins-Monroe Pain Rating (Scale 0-10): Hurts a little bit Marilin Allen participated in this evaluation unless otherwise noted. Her pain, nausea and vomiting have been managed and her body temperature and fluid balance have been restored. Additional monitoring and assessment needs have been addressed. If present, any postoperative events are documented below. Dangelo Schaefer MD 08/01/2016 20:24 * Brief Op Note - Portillo Lester MD - 08/01/20166 EST Plastic Surgery BRIEF OPERATIVE NOTE Surgeon: Calos Penny MD Rn Security: Portillo Lester MD Pre-Op Diagnosis: Nasal obstruction, cleft lip, deviated nasal septum Post-Op Diagnosis: Same Procedure: 1. External rhinoplasty 2. Left ear conchal cartilage and skin composite graft 3. Septroplasty Findings: 1. Nasal obstruction with narrowed right internal nasal valve 2. Nasal deformity with bulbous, amorphous tip among other deformities 3. DNS to the right Anesth: GETA EBL: 50 cc IVF: 1500 UOP: NA Specimen: None Cultures: None Foreign Material Retained: None Complications: None Dispo: To PACU extubated in good condition Portillo Lester MD 08/01/2016, 17:36 8722 documented in this encounter Plan of Treatment Upcoming Encounters Date Type Department Care Team (Late st Contact Info) Description 03/04/2024 11:30 EDT Office Visit [facility] Interventional Pain [address] [place], [place] [phone] Percy Molina MD [address] [facility] [address] [place] [phone] 04/26/2024 9:15 EDT Office Visit [facility] Interventional Pain [address] [place], [place] [phone] Percy Molina MD [address] [facility] [address] [place] [phone] 01/25/2026 12:00 EDT Office Visit [facility] Hematology & Oncology - [facility] [address], [place] [phone] Jorge Lim MD [address] [facility] [place] [address] documented as of this encounter Procedures Procedure Name Priority Date/Time Associated Diagnosis Comments TEST, URINE STAT 08/01/2016 11:45 EST documented in this encounter Results * TEST, URINE (08/01/2016 11:45 EST) Result- Test, Ur Neg Neg 08/01/2016 12:11 EST [facility] Comment: NOTE: False negative results may occur in women who are beyond 5-8 weeks gestation. Diagnosis of should be based on a correlation of test results with typical clinical signs and symptoms. Urine specimen (specimen) URINE / Unknown 08/01/2016 11:45 EST 08/01/2016 12:05 EST Juliano Penny MD URINALYSIS ORDERABLE S [facility] [address] [place] [address] documented in this encounter Visit Diagnoses Diagnosis Refractory obstruction of nasal airway- Primary Refractory obstruction of nasal airway Unilateral complete cleft palate with cleft lip Unilateral cleft palate with cleft lip, complete documented in this encounter Administered Medications Inactive Administered Medications - up to 3 most recent administrations Medication Order MAR Action Action Date Dose Rate Site acetaminophen (TYLENOL) tablet 1,000 mg 1,000 mg, oral, EVERY 6 HOURS PRN, Starting on Thu08/01/16 at 1724, Until Thu08/01/16 at 2228, Pain, Fever, Fever especially in neuro patients, Routine, Recovery (only) atropine 0.1 mg/mL syringe 0.5 mg 0.5 mg, intravenous, PRN, Starting on Thu08/01/16 at 1724, Until Thu08/01/16 at 2228, Symptomatic HR < 50, Routine, Recovery (only) ceFAZolin (ANCEF) syringe 2 g 2 g, intravenous, Administer over 10 Minutes, PRE-OP ONCE, 1 dose, On Thu08/01/16 at 1245, Routine, Pre-Op DOS Rx Approved Given by Other 08/01/2016 14:43 EST 2 g diphenhydrAMINE (BENADRYL) injection 6.25 mg 6.25 mg, intravenous, PRN, 2 doses, Starting on Thu08/01/16 at 1724, Until Thu08/01/16 at 2228, nausea, Routine, Recovery (only) Given 08/01/2016 18:21 EST 6.25 mg fentaNYL citrate (PF) 50 mcg/mL injection 25-100 mcg 25-100 mcg, intravenous, EVERY 5 MIN PRN, Starting on Thu08/01/16 at 1724, Until Thu08/01/16 at 2228, Pain, Routine, Recovery (only) Given 08/01/2016 18:57 EST 50 mcg Given 08/01/2016 18:21 EST 50 mcg Given 08/01/2016 18:07 EST 50 mcg haloperidol lactate (HALDOL) 5 mg/mL injection 1 dose, Starting on Thu08/01/16 at 1954, Until Thu08/01/16 at 2228 haloperidol lactate (HALDOL) injection 1 mg 1 mg, intravenous, EVERY 6 HOURS PRN, Starting on Thu08/01/16 at 1951, Until Thu08/01/16 at 2228, nausea Given 08/01/2016 19:55 EST 1 mg ibuprofen (MOTRIN) tablet 800 mg 800 mg, oral, EVERY 8 HOURS PRN, Starting on Thu08/01/16 at 1724, Until Thu08/01/16 at 2228, Pain, Routine, Recovery (only) Given 08/01/2016 18:06 EST 800 mg lactated ringers (LR) infusion at 75 mL/hr, intravenous, CONTINUOUS, Starting on Thu08/01/16 at 1745, Until Thu08/01/16 at 2228, Routine, Recovery (only) lactated ringers (LR) infusion at 25 mL/hr, intravenous, CONTINUOUS, Starting on Thu08/01/16 at 1345, Until Thu08/01/16 at 2228, Routine, Pre Op Day of Surgery New Bag 08/01/2016 13:20 EST 25 mL/hr naloxone (NARCAN) injection 0.2 mg 0.2 mg, intravenous, PRN, Starting on Thu08/01/16 at 1724, Until Thu08/01/16 at 2228, Opioid Reversal, Routine, Recovery (only) ondansetron (PF) (ZOFRAN) 4 mg/2 mL injection 1 dose, Starting on Thu08/01/16 at 1954, Until Thu08/01/16 at 2228 ondansetron (PF) (ZOFRAN) injection 4 mg 4 mg, intravenous, EVERY 4 HOURS PRN, Starting on Thu08/01/16 at 1951, Until Thu08/01/16 at 2228, Nausea, Routine Given 08/01/2016 19:56 EST 4 mg oxyCODONE (ROXICODONE) immediate release tablet 5-10 mg 5-10 mg, oral, PRN, 2 doses, Starting on Thu08/01/16 at 1724, Until Thu08/01/16 at 2228, Pain, Routine, Recovery (only) Given 08/01/2016 18:06 EST 10 mg documented in this encounter Discontinued Medications Medication Sig Discontinue Reason Start Date End Da te albuterol (ACCUNEB) 0.63 mg/3 mL nebulizer solution Take 0.63 mg by nebulization every 4 hours as needed for Wheezing. Patient Stopped Taking 05/02/2016 documented as of this encounter Historical Medications * This list may reflect changes made after this encounter. Medication Sig Dispensed Refills Start Date End Date ibuprofen (MOTRIN) 600 mg tablet Take 1 Tablet by mouth every 6 hours as needed for Pain. metoprolol XL (TOPROL-XL) 100 mg tablet Take 1 Tablet by mouth daily. UNABLE TO FIND Control 1 pil /day 03/19/2022 added in this encounter Active and Recently Administered Medications Times are shown in EST. Scheduled Medication Order 07/30/2016 07/31/2016 08/01/2016 ceFAZolin (ANCEF) syringe 2 g (COMPLETED) 2 g, intravenous, Administer over 10 Minutes, PRE-OP ONCE, 1 dose, On Thu08/01/16 at 1245, Routine, Pre-Op DOS Rx Approved 1443 (Given by Other - Provider: Kelly Ramon - Comment: Given by Rhoda Anderson MD) Continuous Medication Order 07/30/2016 07/31/2016 08/01/2016 lactated ringers (LR) infusion at 75 mL/hr, intravenous, CONTINUOUS, Starting on Thu08/01/16 at 1745, Until Thu08/01/16 at 2228, Routine, Recovery (only) 1745 (Canceled Entry - Provider: Batch Job User Admin - Comment: Automatically canceled at discontinue of medication order) lactated ringers (LR) infusion at 25 mL/hr, intravenous, CONTINUOUS, Starting on Thu08/01/16 at 1345, Until Thu08/01/16 at 2228, Routine, Pre Op Day of Surgery 1320 (New Bag - Prov ider: Meg Nicholas RN) PRN Medication Order 07/30/2016 07/31/2016 08/01/2016 acetaminophen (TYLENOL) tablet 1,000 mg 1,000 mg, oral, EVERY 6 HOURS PRN, Starting on Thu08/01/16 at 1724, Until Thu08/01/16 at 2228, Pain, Fever, Fever especially in neuro patients, Routine, Recovery (only) atropine 0.1 mg/mL syringe 0.5 mg 0.5 mg, intravenous, PRN, Starting on Thu08/01/16 at 1724, Until Thu08/01/16 at 2228, Symptomatic HR < 50, Routine, Recovery (only) diphenhydrAMINE (BENADRYL) injection 6.25 mg 6.25 mg, intravenous, PRN, 2 doses, Starting on Thu08/01/16 at 1724, Until Thu08/01/16 at 2228, nausea, Routine, Recovery (only) 182 (Given - Provid er: Mercy Colindres RN) fentaNYL citrate (PF) 50 mcg/mL injection 25-100 mcg 25-100 mcg, intravenous, EVERY 5 MIN PRN, Starting on Thu08/01/16 at 1724, Until Thu08/01/16 at 2228, Pain, Routine, Recovery (only) 180 (Given - Provid er: Mercy Colindres RN)182 (Given - Provider: Mercy Colindres RN)185 (Given - Provider: Mercy Colindres RN) haloperidol lactate (HALDOL) injection 1 mg 1 mg, intravenous, EVERY 6 HOURS PRN, Starting on Thu08/01/16 at 1951, Until Thu08/01/16 at 2228, nausea 195 (Given - Provid er: Mercy Colindres RN) ibuprofen (MOTRIN) tablet 800 mg 800 mg, oral, EVERY 8 HOURS PRN, Starting on Thu08/01/16 at 1724, Until Thu08/01/16 at 2228, Pain, Routine, Recovery (only) 180 (Given - Provid er: Mercy Colindres RN) naloxone (NARCAN) injection 0.2 mg 0.2 mg, intravenous, PRN, Starting on Thu08/01/16 at 1724, Until Thu08/01/16 at 2228, Opioid Reversal, Routine, Recovery (only) ondansetron (PF) (ZOFRAN) injection 4 mg 4 mg, intravenous, EVERY 4 HOURS PRN, Starting on Thu08/01/16 at 1951, Until Thu08/01/16 at 2228, Nausea, Routine 1956 (Given - Provid er: Mercy Colindres RN) oxyCODONE (ROXICODONE) immediate release tablet 5-10 mg 5-10 mg, oral, PRN, 2 doses, Starting on Thu08/01/16 at 1724, Until Thu08/01/16 at 2228, Pain, Routine, Recovery (only) 1806 (Given - Provid er: Mercy Colindres RN) No Frequency Medication Order 07/30/2016 07/31/2016 08/01/2016 haloperidol lactate (HALDOL) 5 mg/mL injection 1 dose, Starting on Thu08/01/16 at 1954, Until Thu08/01/16 at 2228 ondansetron (PF) (ZOFRAN) 4 mg/2 mL injection 1 dose, Starting on Thu08/01/16 at 1954, Until Thu08/01/16 at 2228 documented in this encounter Orders Medications Ordered That Dany ht Not Have Been Administered Count Last Ordered Date First Ordered Date acetaminophen (TYLENOL) tablet 1,000 mg 1 0 08/01/2016 atropine 0.1 mg/mL syringe 0.5 mg 1 017 haloperidol lactate (HALDOL) 5 mg/mL injection 1 08/01/2016 lactated ringers (LR) infusion 1 08/01/2016 naloxone (NARCAN) injection 0.2 mg 1 2016 ondansetron (PF) (ZOFRAN) 4 mg/2 mL injection 1 08/01/2016 Diet Count Last Ordered Date First Orde red Date DISCHARGE DIET 1 08/01/2016 Nursing Count Last Ordered Date First Orde red Date ACTIVITY INSTRUCTIONS 1 08/01/2016 APPLY WARMING BLANKET 1 08/01/2016 INSERT PERIPHERAL IV 1 08/01/[address] SEQUENTIAL COMPRESSION DEVICE 1 08/01 Discharge Count Last Ordered Date First Orde red Date DISCHARGE PATIENT 1 08/01/2016 Legal Count Last Ordered Date First Orde red Date MISCELLANEOUS DISCHARGE INSTRUCTIONS 3 08/2016 documented in this encounter Care Teams Telecine Operator Relationship Specialty Start Date End Date Juan Luis Moore MD PCP - General 02/04/16 07/25/19 documented as of this encounter
--- OUTSIDE RECORDS SUMMARY | 2024-02-23 17:20 | XMS_ITS | Encounter Summary ---
Author Organization [facility] Address [address] [place] [address] Care Team Providers Care Tree Specialist Name Role Phone Diya Gifford MD Primary Care Provide r Reason for Referral * Radiology Services (Routine) - Specialty Report Received Specialty Diagnoses / Procedures Referred By Ar salinas Referred To Contact Diagnoses Neck pain Procedures XR CERVICAL SPINE 4-5 VIEWS Mike Coker MD [address] [place] [address] [place] [address] Referral ID Status Reason Start Date Expiration Date V isits Requested Visits Authorized [id number] Specialty Report Received 01/27/2020 1 1 Encounter Details Date Type Department Care Team (Late st Contact Info) Description 01/27/2020 Orders Only [facility] Spine Program - [facility] [place] [address] Mike Coker MD [address] [place] [phone] Neck pain (Primary Dx) Social History [facility] [address] [place] [address] Percy Molina MD [address] [place] [address] [address] [place] [phone] 04/26/2024 9:15 EDT Office Visit [facility] Inter[facility] Pain [address] [place] [address] Percy Molina MD 62 [facility] [address] [place] [phone] 01/25/2026 12:00 EDT Office Visit [facility] Hematology & Oncology - [address] [phone] Jorge Lim MD [address] [facility], [facility], [facility] 2 [place] [phone] documented as of this encounter Results * XR CERVICAL SPINE [...] in this encounter Visit Diagnoses Diagnosis Neck pain- Primary Cervicalgia Neck pain Cervicalgia documented in this encounter Care Teams Tree Specialist Relationship Specialty Start Date End Date Diya Gifford MD [address] [place] [id number] PCP - General 07/26/19 documented as of this encounter
--- OUTSIDE RECORDS SUMMARY | 2024-02-23 17:20 | XMS_ITS | Encounter Summary ---
Author Organization [facility] Address [address] [place] [address] Care Team Providers Care Coater Brake Linings Name Role Phone Juan Luis Moore MD Primary Care Provider [phone] Reason for Referral * Consult (Routine) - Closed Specialty Diagnoses / Procedures Referred By Ar salinas Referred To Contact Otolaryngology Diagnoses Right chronic serous otitis media Unilateral complete cleft palate with cleft lip Juliano Penny MD [address] [place] [phone] [facility] [address] [place] [address] Referral ID Status Reason Start Date Expiration Date V isits Requested Visits Authorized [id number] Closed Specialty Services Required 02/05/2016 1 1 Question Answer Reason for Request: chronic otitis * Surgery (Routine/Next Available) - Closed Specialty Diagnoses / Procedures Referred By Ar salinas Referred To Contact Plastic Surgery Diagnoses 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 Procedures ID EAR CARTILAGE GRAFT TO FACE ID [id number] NOSE/CLEFT LIP/TIP,SEPTUM Juliano Penny MD [address] [place] [address] [place] [phone] Juliano Penny MD [address] [place] [address] [place] [phone] Referral ID Status Reason Start Date Expiration Date V isits Requested Visits Authorized Closed Specialty Services Required 02/05/2016 1 1 Question Answer Reason for Request: OR Comments OR Scheduling: Procedure: Ear Cartilage Graft 92538 and Septo-rhinoplasty [address], Anesthesia = General duration = 3 hr, Location = [facility] OR / Outpatient f/u = 6 days preop needed = Yes Schedule = March, REQUESTS = Oral SUSAN tube, Co-Surgeon = ??ENT surgeon??? * Radiology Services (3 - 10 Business Days) - Closed Specialty Diagnoses / Procedures Referred By Ar salinas Referred To Contact Diagnoses 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 Procedures CT FACIAL BONES WO CONTRAST CHG CT SCAN,MAXILLOFACIAL AREA,W/O CONTRAST CHG 3D RENDERING W/INTERP&POSTPROC DIFF WORK STATION Juliano Penny MD [address] [place] [address] [place] [phone] Referral ID Status Reason Start Date Expiration Date Visits Re quested Visits Authorized [id number] Closed 02/05/2016 1 1 Reason for Visit * Reason Comments Cleft Lip and/or Palate * Consult (Routine) - Closed Specialty Diagnoses / Procedures Referred By Ar salinas Referred To Contact Plastic Surgery Diagnoses Cleft palate, unspecified Juan Luis Moore MD [address] [address] Juliano Penny MD [address] [place] [address] [place] [phone] Referral ID Status Reason Start Date Expiration Date Visits Re quested Visits Authorized [id number] Closed 12/18/2015 1 1 Encounter Details Date Type Department Care Team ([facility] Contact Info) Description 02/05/2016 9:00 EDT Office Visit [facility] Plastic, Reconstructive & Cosmetic Surgery - [address], [address] [place] [address] Juliano Penny MD 354 [facility] [address] [place] [phone] Unilateral complete cleft palate with cleft lip (Primary Dx); Refractory obstruction of nasal airway; Right chronic serous otitis media Social History Tobacco Use Types Packs/Day Years Used Date Smoking Tobacco: Never Assessed Sex and Gender Information Value Date Recorded Sex Assigned at Female 09/21/2023 8:38 EDT Gender Identity Female 06/08/2019 10:16 EST Sexual Orientation Not on file documented as of this encounter Progress Notes * Stacy Fuentes - 02/05/2016 1511 EDT Date Photos Taken: 02/05/16 Photo location(s): face and nose * Juliano Penny MD - 02/05/2016 0907 EDT Marilin Allen is a 41 y.o. female Chief Complaints: Chief Complaint Patient presents with ??? Cleft Lip and/or Palate Subjective: Marilin is a 41-year-old woman who [...] degree of nasal obstruction. She also reports thatjose m has had numerous surgeries on her ears and most recently her primary care physician has looked in her right ear and says that the eardrum is scarred. Patient Active Problems: Patient Active Problem List Diagnosis ??? Unilateral complete cleft palate with cleft lip ??? Refractory obstruction of nasal airway Past Medical History: Past Medical History Diagnosis Date ??? Cleft palate Past Surgical History: No past surgical history on file. Family History: No family history on file. Health Habits: Social History Substance Use Topics ??? Smoking status: Not on file ??? Smokeless tobacco: Not on file ??? Alcohol use Not on file Medications: Outpatient Encounter Prescriptions as of 02/05/2016 Medication Sig Dispense Refill ??? albuterol (ACCUNEB) 0.63 mg/3 mL nebulizer solution Take 0.63 mg by nebulization every 4 hours as needed for Wheezing. ??? amitriptyline (ELAVIL) 50 mg tablet Take 50 mg by mouth at bedtime as needed. ??? diclofenac (VOLTAREN) 50 mg EC tablet Take 50 mg by mouth 2 times daily. ??? famotidine (PEPCID) 20 mg tablet Take 20 mg by mouth 2 times daily. ??? gabapentin (NEURONTIN) 400 mg capsule Take 400 mg by mouth 4 times daily. ??? hydrOXYzine (ATARAX) 25 mg tablet Take 25 mg by mouth 3 times daily. ??? metoprolol XL (TOPROL-XL) 100 mg tablet Take 100 mg by mouth daily. ??? oxycodone-acetaminophen (PERCOCET) 5-325 mg per tablet Take 2 Tabs by mouth every 8 hours as needed for Pain. 24 Tab 0 ??? venlafaxine (EFFEXOR-XR) 150 mg XR capsule Take 150 mg by mouth daily. ??? zolpidem (AMBIEN) 5 mg tablet Take 5 mg by mouth daily. No facility-administered encounter medications on file as of 02/05/2016. Allergies: Allergies Allergen Reactions ??? Penicillins ??? Shellfish Containing Products ROS: Review of Systems - History obtained from chart review and the patient. Vitals: There were no vitals taken for this visit. Physical examination: On examination, she is a [...] palate is intact without evidence of fistula. Assessment: 41 y.o. female with The primary encounter diagnosis was Unilateral complete cleft palate with cleftlip. Diagnoses of Refractory obstruction of nasal airway and Right chronic serous otitis media werealso pertinent to this visit.. Plan: I think that she would benefit from an open septorhinoplasty. I think that she would require some cartilage grafting and possibly skin grafting to open her right naris. I am unclear as to whether shewould also require a turbinoplasty and revision septoplasty at the same setting. I will obtain a facial bone CT scan to assess these structures better, as they could not be adequately visualized on physical examination. I would also like her to consult with otolaryngology for her right middle ear. Follow up here in several weeks after these studies have been obtained. Orders: Marilin was seen today for cleft lip and/or palate. Diagnoses and all orders for this visit: Unilateral complete cleft palate with cleft lip Orders: - CT FACIAL BONES WO CONTRAST - Amb Consult/Follow Up Procedure to be Scheduled - Amb Consult/Follow Up ENT Refractory obstruction of nasal airway Orders: - CT FACIAL BONES WO CONTRAST - Amb Consult/Follow Up Procedure to be Scheduled Right chronic serous otitis media Orders: - Amb Consult/Follow Up ENT Other orders - zolpidem (AMBIEN) 5 mg tablet; Take 5 mg by mouth daily. - albuterol (ACCUNEB) 0.63 mg/3 mL nebulizer solution; Take 0.63 mg by nebulization every 4 hours as needed for Wheezing. - diclofenac (VOLTAREN) 50 mg EC tablet; Take 50 mg by mouth 2 times daily. - famotidine (PEPCID) 20 mg tablet; Take 20 mg by mouth 2 times daily. - metoprolol XL (TOPROL-XL) 100 mg tablet; Take 100 mg by mouth daily. - hydrOXYzine (ATARAX) 25 mg tablet; Take 25 mg by mouth 3 times daily. - venlafaxine (EFFEXOR-XR) 150 mg XR capsule; Take 150 mg by mouth daily. I spent 30 minutes with this patient; 25 minutes was spent in [id number] counseling and coordination of care. Juliano Penny Jr., MD FACS executive vice president of sales and Pediatrics Division of Plastic Surgery [facility] documented in this encounter Plan of Treatment Upcoming Encounters Date Type Department Care Team (Late st Contact Info) Description 03/04/2024 11:30 EDT Office Visit [facility] Interventional Pain [address] [place], [place] [phone] Percy Molina MD [address] [place] [address] [address] [place] [address] 04/26/2024 9:15 EDT Office Visit [facility] Interventional Pain [address] [place] [address] Percy Molina MD [address] [place] [address] [address] [place] [address] 01/25/2026 12:00 EDT Office Visit [facility] Hematology & Oncology - [facility] [address] [place], [place] [phone] Jorge Lim MD 111 [facility], [address] [place] [phone] Scheduled Orders Name Type Priority Associated Diagnoses Orde r Schedule CT FACIAL BONES WO CONTRAST Imaging Routine Unilateral complete cleft palate with cleft lip Refractory Obstruction Of Nasal Airway Ordered: 02/05/2016 Scheduled Referrals Name Type Priority Associated Diagnoses Orde r Schedule AMB CONS/FOLLOW UP PROCEDURE TO BE SCHEDULED Outpatient Referral Routine Unilateral complete cleft palate with cleft lip Refractory Obstruction Of Nasal Airway Ordered: 02/05/2016 AMB CONS/FOLLOW UP ENT Outpatient Referral Routine Right chronic serous otitis media Unilateral complete cleft palate with cleft lip Ordered: 02/05/2016 documented as of this encounter Visit Diagnoses Diagnosis Unilateral complete cleft palate with cleft lip- Primary Unilateral cleft palate with cleft lip, complete Refractory obstruction of nasal airway Right chronic serous otitis media Simple or unspecified chronic serous otitis media documented in this encounter Historical Medications * This list may reflect changes made after this encounter. Medication Sig Dispensed Refills Start Date End Date venlafaxine (EFFEXOR-XR) 150 mg XR capsule Take 75 mg by mouth daily. hydrOXYzine (ATARAX) 25 mg tablet Take 25 mg by mouth 3 times daily. 04/24/2016 metoprolol XL (TOPROL-XL) 100 mg tablet Take 100 mg by mouth daily. 04/24/2016 famotidine (PEPCID) 20 mg tablet Take 20 mg by mouth 2 times daily. 04/24/2016 diclofenac (VOLTAREN) 50 mg EC tablet Take 50 mg by mouth 2 times daily. 04/24/2016 albuterol (ACCUNEB) 0.63 mg/3 mL nebulizer solution Take 0.63 mg by nebulization every 4 hours as needed for Wheezing. 05/02/2016 zolpidem (AMBIEN) 5 mg tablet Take 5 mg by mouth at bedtime. 03/19/2022 added in this encounter Care Teams Coater Brake Linings Relationship Specialty Start Date End Date Juan Luis Moore MD PCP - General 02/04/16 07/25/19 documented as of this encounter
--- OUTSIDE RECORDS SUMMARY | 2024-02-23 17:20 | XMS_ITS | Encounter Summary ---
Author Organization [facility] Address [address] [place] [address] Care Team Providers Care Etl Consultant Name Role Phone Diya Gifford MD Primary Care Provide r Encounter Details Date Type Department Care Team (Late st Contact Info) Description 12/06/2020 Abstract [facility] Dermatology [address] [place] [address], [place] [address] Molly Singer MD 111 [facility], [facility] [address] [place] [address] Social History Tobacco Use Types [...] as of this encounter Progress Notes * Theodora Dahl MA - 12/06/2020 1621 EDT Chart abstractions taken from referral to dermatology. Referral was sent from [facility] for skin lesion of the face. documented in this encounter Plan of Treatment Upcoming Encounters Date Type Department Care Team (Late st Contact Info) Description 03/04/2024 11:30 EDT Office Visit [facility] Interventional Pain [address] [place], [place] [phone] Percy Molina MD [address] [place] [address] [address] [place] [address] 04/26/2024 9:15 EDT Office Visit [facility] Interventional Pain [address] [place] [address] Percy Molina MD [address] [place] [phone] 01/25/2026 12:00 EDT Office Visit [facility] Hematology & Oncology - [facility] [address] [place], [place] [phone] Jorge Lim MD 111 [facility], [facility], [address] [place] [phone] documented as of this encounter Visit Diagnoses Not on filedocumented in this encounter Historical Medications * This list may reflect changes made after this encounter. Medication Sig Dispensed Refills Start Date End Date Lactobacillus acidophilus (PROBIOTIC) 10 billion cell capsule Take by mouth daily. diclofenac sodium gel Apply topically 2 times daily. Sodium Fluoride 1.1 % cream Place onto teeth. hydrOXYzine (VISTARIL) 25 mg capsule Take 1 Capsule by mouth 2 times daily. fexofenadine (ZACHARY) 60 mg tablet Take 1 Tablet by mouth 2 times daily. hydroCHLOROthiazide (HYDRODIURIL) 12.5 mg tablet Take 12.5 mg by mouth daily. 03/19/2022 cyclobenzaprine (FLEXERIL) 5 mg tablet Take 5 mg by mouth 3 times daily. 03/19/2022 added in this encounter Care Teams Etl Consultant Relationship Specialty Start Date End Date Diya Gifford MD 4 [facility] [address] [place] [address] PCP - General 07/26/19 documented as of this encounter
--- OUTSIDE RECORDS SUMMARY | 2024-02-23 17:20 | XMS_ITS | Encounter Summary ---
Author Organization [facility] Address [address] [place] [address] Care Team Providers Care Oracle Application Consultant Name Role Phone Juan Luis Moore MD Primary Care Provider [phone] Encounter Details Date Type Department Care Team (Late st Contact Info) Description 02/29/2016 Results Only Imaging [facility] Plastic, Reconstructive & Cosmetic Surgery - [address], [address] [place] [phone] Juliano Penny MD [address] [phone] Social History Tobacco Use Types Packs/Day Years Used Date Smoking Tobacco: Never Assessed Sex and Gender Information Value Date Recorded Sex Assigned at Female 09/21/2023 8:38 EDT Gender Identity Female 06/08/2019 10:16 EST Sexual Orientation Not on file documented as of this encounter Plan of Treatment Upcoming Encounters Date Type Department Care Team (Late st Contact Info) Description 03/04/2024 11:30 EDT Office Visit [facility] Interventional Pain [address] [place] [address] Percy Molina MD [address] [place] [address] [address] [place] [address] 04/26/2024 9:15 EDT Office Visit [facility] Interventional Pain [address] [place], [place] [phone] Percy Molina MD 62 [facility] [address] [place] [address] 01/25/2026 12:00 EDT Office Visit [facility] Hematology & Oncology - [address] [phone] Jorge Lim MD 111 [facility], Level [address] [place] [phone] Pending Results Name Type Priority Associated Diagnoses Date /Time OUTSIDE IMAGES - CT NEURO Imaging 02/29/2016 10:28 EDT documented as of this encounter Visit Diagnoses Not on filedocumented in this encounter Care Teams Oracle Application Consultant Relationship Specialty Start Date End Date Juan Luis Moore MD PCP - General 02/04/16 07/25/19 documented as of this encounter
--- OUTSIDE RECORDS SUMMARY | 2024-02-23 17:20 | XMS_ITS | Encounter Summary ---
Author Organization [facility] Address [address] [place] [address] Care Team Providers Care Cricket Coach Name Role Phone Unavailable Primary Care Provider Unavailabl e Encounter Details Date Type Department Care Team (Late st Contact Info) Description 10/13/2007 Before PRISM Converted Visit (Maple) [facility] - Maple conversion [address] [place] [address] Ruby Hall, PA-C 111 [facility], Level [address] [place] [phone] Social History Tobacco Use Types Packs/Day Years Used Date Smoking Tobacco: Never Assessed Sex and Gender Information Value Date Recorded Sex Assigned at Female 09/21/2023 8:38 EDT Gender Identity Female 06/08/2019 10:16 EST Sexual Orientation Not on file documented as of this encounter Consult Notes * Ruby Hall PA - 03/30/2009 0121 EDT DIVISION OF DERMATOLOGY CONSULTATION - 10/13/2007 JOCELINE Gaston is a 32-year-old woman who presents today for consultation at the request of Yoly Houstonfor discussion of acne and excessive hair growth. She gets dark hair growth on her upper lip and chin. 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 This has an excellent cosmetic result but she still feels that this is quite visible. She finds that the combination of this withthe darker hair is very upsetting and she is wondering what can be done for the hair. She has been waxing twice a week and as a result of this is getting irritation and bumps in the areas of waxing. She has questions about different hair removal techniques as well as bleaching. She has tried a topical erythromycin which has not really helped with the acne-type breakouts. She admits to be being extremely compulsive about the hair - she knows that a lot of this is probably not visible from regular conversational distance, but she gets very close in the mirror with verybright lights and then feels the need to pluck the hairs. She also sometimes just feels them on thesurface and immediately needs to pluck them. She has also noticed some soft, tool and fixture repairer hair on the cheeks and is concerned that this might turn into darker brown hair as well. This has become more prominent in the past couple of years. She gets regular menstrual periods and is otherwise healthy. CURRENT MEDICATIONS Her only medications are Tylenol, Excedrin as needed and Imitrex as needed for migraines. MEDICATION ALLERGIES PENICILLIN AND SULFA. Please see the new patient intake form for past medical history, and review of systems. SOCIAL HISTORY She is , nonsmoker, drinks alcohol occasionally. OBJECTIVE No apparent distress. Very pleasant, healthy-appearing woman sitting comfortably. She has an excellent cosmetic result from cleft palate repair. In the perioral distribution there are multiple folliculocentric inflammatory papules. There is no visible dark hair today on the upper lip, chin, jawlineor neck. On the cheeks bilaterally there is soft, downy, blond hair. ASSESSMENT 1. ? Perioral dermatitis. 2. Hypertrichosis. 3. Traumatic folliculitis (from waxy and plucking). PLAN 1. We had an extensive discussion about different hair removal options - on todays exam I could notsee any hair at all and I could not give her my opinion as to whether or not this was even visible.She does admit that a lot of this is her perception and the hair may not be as bad as she thinks itis. We talked about electrolysis (which would require her letting the hair grow long enough to grabit with a forceps), laser hair removal,waxy and plucking (which she already does), and bleaching. If there are a few dark hairs, she could get an excellent hair removal with electrolysis but again I do not think she would be willing to let this grow long enough. We talked about laser hair removal which can take multiple treatments, is quite expensive and may not be ???permanent.?? This usually takes multiple treatments six to eight weeks apart. She would need to leave some of the hair in the follicle (this could be done with shaving, but plucking would remove the entire hair and would negatethe effect of the laser.) 2. Since she has a lot of inflammatory papules in the perioral distribution, she may have a component of perioral dermatitis, as well as traumatic folliculitis. We will try doxycycline 100 mg number 60 Sig. 1 p.o. b.i.d. with 3 refills. effects of photosensitivity and GI upset discussed.Sun protection/sun avoidance emphasized. Patient was instructed to call the office with questions, concerns or possible symptoms of side effects. 3. She can certainly try bleaching the hair if she feels that this gives her a good enough cosmeticresult. 4. Follow up with me in eight to ten weeks. We also set up a laser hair removal appointment for three months in the future and a handout was given for her to read. If she wants to keep this appointment, she will already have it, otherwise we can cancel this. The cost would probably be about $250.00to $300.00 per treatment for upper lip and chin. We can discuss this further at her follow-up visit. 5. She should stay out of the sun between now and then as well (because of the doxycycline and if she does decide to have laser hair removal). Supervising Physician Signed by Robert Harding MD 11/16/2007 15:24 Reviewed by Ruby Hall PA-C 10/18/2007 12:36 Ruby Hall PA-C Robert Harding MD - Erin Hall PA-C - DD Job ID: [id number] Doc ID: [id number] cc: SYL Saucedo - Ruby Hall PA-C - dd Job ID: [id number] Doc ID: [id number] cc: SYL Saucedo documented in this encounter Plan of Treatment Upcoming Encounters Date Type Department Care Team (Late st Contact Info) Description 03/04/2024 11:30 EDT Office Visit [facility] Interventional Pain [address] [place] [address] Percy Molina MD [address] [place] [address] [place] [phone] 04/26/2024 9:15 EDT Office Visit [facility] Interventional Pain [address] [place] [address] Percy Molina MD [address] [place] [phone] 01/25/2026 12:00 EDT Office Visit [facility] Hematology & Oncology - [address] [phone] Jorge Lim MD 111 [facility] 2 [place] [phone] documented as of this encounter Visit Diagnoses Not on filedocumented in this encounter
--- OUTSIDE RECORDS SUMMARY | 2024-02-23 17:21 | XMS_ITS | Encounter Summary ---
Author Organization [place] [address] Care Team Providers Care Inspector Set Up And Lay Out Name Role Phone Diya Gifford MD Primary Care Provider [phone] Reason for Referral * Diagnostic Test (Routine) - Closed Specialty Diagnoses / Procedures Referred By Ar salinas Referred To Contact Radiology Diagnoses Hx of cleft palate Oronasal fistula Procedures CT Face wo Contrast Mau Ochoa MD [facility] [place] [address] [facility] [place] [address] Referral ID Status Reason Start Date Expiration Date V isits Requested Visits Authorized [id number] Closed Specialty Service Requested 12/29/2019 06/26/2020 1 1 Reason for Visit * Diagnostic Test (Routine) - Closed Specialty Diagnoses / Procedures Referred By Ar salinas Referred To Contact Radiology Diagnoses Hx of cleft palate Oronasal fistula Procedures CT Face wo Contrast Mau Ochoa MD [facility] [place] [address] [facility] [place] [address] Referral ID Status Reason Start Date Expiration Date V isits Requested Visits Authorized [id number] Closed Specialty Service Requested 12/29/2019 06/26/2020 1 1 Encounter Details Date Type Department Care Team (Latest Contact Info) Description 01/10/2020 8:51 AM EDT - 01/10/2020 11:59 PM EDT Hospital [place] [address] Mau Ochoa MD [facility] [place] [address] Hx of cleft palate; Oronasal fistula Discharge Disposition: Home Social History Tobacco Use Types Packs/Day Years Used Date Smoking Tobacco: Never Smokeless Tobacco: Never Sex and Gender Information Value Date Recorded Sex Assigned at Not on file Gender Identity Not on file Sexual Orientation Not on file documented as of this encounter Medications at Time of Discharge Medication Sig Dispensed Refills Start Date End Date cetirizine (ZyrTEC) 10 mg Tablet Take 10 mg by mouth Daily. doxycycline (VIBRAMYCIN) 100 mg Capsule TAKE 1 CAPSULE BY MOUTH ONCE DAILY 09/07/2019 gabapentin (NEURONTIN) 800 mg Tablet TAKE ONE TABLET BY MOUTH FOUR TIMES DAILY 05/02/2019 hydroCHLOROthiazide (HYDRODIURIL) 12.5 mg Tablet 06/27/2019 hydrOXYzine (VISTARIL) 25 mg Capsule TAKE 1 CAPSULE BY MOUTH TWICE A DAY 08/17/2019 Acidophilus-Pectin, Drasco 25 million cell -100 mg Tablet TAKE 1 TABLET BY MOUTH DAILY 08/11/2019 Introvale 0.15 mg-30 mcg (91) , 91 tablet dose pack, 3 months TAKE 1 TABLET BY MOUTH ONCE DAILY 08/11/2019 metoprolol succinate XL (Toprol-XL) 100 mg Tablet Sustained Release 24 hr Take 100 mg by mouth Daily. omeprazole (PriLOSEC) 20 mg Capsule, Delayed Release(E.C.) Take 20 mg by mouth Daily. ondansetron ODT (Zofran-ODT) 8 mg Tablet, Rapid Dissolve Take 8 mg by mouth Every 8 hours as needed. 08/01/2016 oxyCODONE-acetaminophen (Percocet) 5-325 mg Tablet Take 2 tablets by mouth Every 8 hours as needed. 07/29/2010 venlafaxine (EFFEXOR-XR) 150 mg Capsule, Sust. Release 24 hr Take 75 mg by mouth Daily. zolpidem (AMBIEN CR) 12.5 mg Tablet, Multiphasic Release TK 1 T PO QD HS 08/25/2019 diclofenac (VOLTAREN) 1 % Gel Apply topically as needed. documented as of this encounter Plan of Treatment Not on file documented as of this encounter Procedures Procedure Name Priority Date/Time Associated Diagnosis Comments CT FACE WO CONTRAST Routine 01/10/2020 9 :32 AM EDT Hx of cleft palate Oronasal fistula documented in this encounter Results * CT Face wo Contrast (01/10/2020 9:32 AM EDT) Anatomical Region Laterality Modality Head Computed Tomogra phy Impressions 01/10/2020 4:38 PM EDT Stable right-sided cleft palate which does show a small area of osseous fusion in the midportion of the palate. Thank you for letting us participate in the care of this patient. For questions regarding this report, please contact the number below. ? Narrative 01/10/2020 4:38 PM EDT EXAMINATION: CT FACE WO CONTRAST CLINICAL HISTORY: Histroy of cleft lip and palate, evaluate for facial reconstruction and oronasal fistual repair TECHNIQUE: CT face performed without intravenous contrast administration. COMPARISON: CT head 02/28/2016 FINDINGS: Stable right-sided cleft palate deformity which extends to the right side of the maxilla where there is a prosthetic tooth. The alveolar ridge at this location is fused. There is only partial osseous fusion hardware palate in its midportion. The left side of the hard palate appears to be normal. Small amount of mucosal thickening in the inferior aspect of the left maxillary sinus. The remainder of the paranasal sinuses are clear. No abnormality of the orbits identified. Procedure Note Maria G Farooq MD - 01/10/2020 EXAMINATION: CT FACE WO CONTRAST CLINICAL HISTORY: Histroy of cleft lip and palate, evaluate for facial reconstruction and oronasal fistual repair TECHNIQUE: CT face performed without intravenous contrast administration. COMPARISON: CT head 02/28/2016 FINDINGS: Stable right-sided cleft palate deformity which extends to the right sideof the maxilla where there is a prosthetic tooth. The alveolar ridge at thislocation is fused. There is only partial osseous fusion hardware palate in its midportion. The left side of the hard palate appears to be normal. Small amount of mucosal thickening in the inferior aspect of the leftmaxillary sinus. The remainder of the paranasal sinuses are clear. No abnormality ofthe orbits identified. IMPRESSION Stable right-sided cleft palate which does show a small area of osseousfusion in the midportion of the palate. Thank you for letting us participate in the care of this patient. Forquestions regarding this report, please contact the number below. Electronically signed by: Maria G Farooq [facility] ([phone]),at 01/10/2020 4:38 PM Mau Ochoa MD IMG CT ORDERABLES documented in this encounter Visit Diagnoses Diagnosis Hx of cleft palate Personal history of (corrected) congenital malformations of eye, ear, face and neck Oronasal fistula Cleft palate, unspecified documented in this encounter Care Teams Inspector Set Up And Lay Out Relationship Specialty Start Date End Date Diya Gifford MD [address] [place] [address] PCP - General Family Medicine 08/18/19 documented as of this encounter
--- OUTSIDE RECORDS SUMMARY | 2024-02-23 17:21 | XMS_ITS | Encounter Summary ---
Author Organization [facility] Address [facility] [place] [address] Care Team Providers Care Epic Beacon Specialists Name Role Phone Diya Gifford MD Primary Care Provider [phone] Reason for Visit * Reason Comments Follow Up Surgery s/p cleft rhinoplast y Encounter Details Date Type Department Care Team (Late st Contact Info) Description 04/16/2020 9:30 AM EDT Office Visit Plastic Surgery at [facility] [place] [address] Sandi Wong APRN [facility] [place] [address] Surgery follow-up Social History Tobacco Use Types Packs/Day Years Used Date Smoking Tobacco: Never Smokeless Tobacco: Never Alcohol Use Standard Drinks/Week Comments Yes 0 (1 standard drink = 0.6 oz pur e alcohol) Rare Sex and Gender Information Value Date Recorded Sex Assigned at Not on file Gender Identity Not on file Sexual Orientation Not on file documented as of this encounter Progress Notes * Sandi Wong APRN - 04/16/2020 9:30 AM EDT Plastic Surgery Post Op Note Sandi Wong APRN Reason for visit: F/U status post procedure Date of surgery: 04/09/2020 Procedure(s): rhinoplasty for congenital nasal deformity (Ochoa) Complications: None reported HPI: Patient presents in Follow-Up today, 1 wk post-operative. She reports to clinic with her Friend for todays appointment. She has concerns about her right suture line inside of her right nares. She feels that this looks like a booger and is worried that this will stay and be noticeable. She isable to breath well through her nose. Examination: There were no vitals taken for this visit. Patient is alert, conversant, comfortable, ambulating Incision: CDI, healing well. Sutures removed on exam Nares patent bilateral, right nares with hypergranulation tissue to suture line Nose appears symmetric and without deformity No collection, no erythema, no evidence of cellulitis. Impression: Marilin Allen is a 45 y.o. female who was seen today for follow-up after the above procedure. Please see the operative note for details. She is doing well without complaints. She is healing well overall, nose is still swollen. Patient aware that she will continue to heal and the area in the right nares she is worried about may improve with out intervention. We will continue to monitor area. Plan: Follow up: 2 weeks follow up when Dr Ochoa is in clinic Continue to use tape to splint nose May use ice to help with swelling and edema Sleep with HOB elevated documented in this encounter Plan of Treatment Not on file documented as of this encounter Visit Diagnoses Diagnosis Surgery follow-up Follow-up examination, following unspecified surgery documented in this encounter Care Teams Epic [facility] Relationship Specialty Start Date End Date Diya Gifford MD [address] [place] [address] PCP - General Family Medicine 08/18/19 documented as of this encounter
--- OUTSIDE RECORDS SUMMARY | 2024-02-23 17:21 | XMS_ITS | Encounter Summary ---
Author Organization [facility] [address] Care Team Providers Care Environmental Consultant Name Role Phone Diya Gifford MD Primary Care Provider [phone] Encounter Details Date Type Department Care Team (Late st Contact Info) Description 04/09/2021 [place] [phone] Theodora Kelly Social History Tobacco Use Types Packs/Day Years Used Date Smoking Tobacco: Never Smokeless Tobacco: Never Alcohol Use Standard Drinks/Week Comments Yes 0 (1 standard drink = 0.6 oz pur e alcohol) Rare Sex and Gender Information Value Date Recorded Sex Assigned at Not on file Gender Identity Not on file Sexual Orientation Not on file documented as of this encounter Miscellaneous Notes * Telephone Encounter - Theodora Kelly - 04/09/2021 10:20 AM EDT Called patient to schedule follow up visit with Dr. Lion. Per [employer] patients surgery order will be over one year old on reschedule date therefore she needs a re eval with Dr. Lion and a new surgical order will be placed after that. Lft VM with clinic number to call for scheduling documented in this encounter Plan of Treatment Not on file documented as of this encounter Visit Diagnoses Not on filedocumented in this encounter Care Teams Environmental Consultant Relationship Specialty Start Date End Date Diya Gifford MD [address] [place] [address] PCP - General Family Medicine 08/18/19 documented as of this encounter
--- OUTSIDE RECORDS SUMMARY | 2024-02-23 17:21 | XMS_ITS | Encounter Summary ---
[place] [address] Care Team Providers Care Bar Tender Name Role Phone Diya Gifford MD Primary Care Provider [phone] Reason for Referral * Consultation (Routine) - Closed Specialty Diagnoses / Procedures Referred By Ar salinas Referred To Contact Neurology Diagnoses Headache, chronic daily Vannesa Bunch APRN [address] [place] [address] [facility] [address] [place] [phone] Referral ID Status Reason Start Date Expiration Date V isits Requested Visits Authorized [id number] Closed Consult, Test & Treat 07/17/2023 07/16/2024 1 1 Encounter Details Date Type Department Care Team (Latest Contact Info) Description 07/17/2023 Transcribe Orders eD Incoming Referrals [phone] Vannesa Bunch APRN [address] [place], [place] [id number] Headache, chronic daily (Primary Dx) Social History Tobacco Use Types [...] as of this encounter Plan of Treatment Scheduled Referrals Name Type Priority Associated Diagnoses Orde r Schedule Referral to Neurology Outpatient Referral Routine Headache, chronic daily Ordered: 07/17/2023 documented as of this encounter Visit Diagnoses Diagnosis Headache, chronic daily- Primary Headache documented in this encounter Care Teams Bar Tender Relationship Specialty Start Date End Date Diya Gifford MD [address] [place] [address] PCP - General Family Medicine 08/18/19 documented as of this encounter
--- OUTSIDE RECORDS SUMMARY | 2024-02-23 17:21 | XMS_ITS | Encounter Summary ---
Author Organization [facility] Address [facility] [place] [address] Care Team Providers Care Core Finisher Name Role Phone Sly Schultz MD Primary Care Provider [phone] Encounter Details Date Type Department Care Team (Late st Contact Info) Description 02/28/2016 Ancillary Procedure [place] [address] Diya Gifford MD [address] [place], [place] [address] Social History Tobacco Use Types Packs/Day Years Used Date Smoking Tobacco: Never Assessed Sex and Gender Information Value Date Recorded Sex Assigned at Not on file Gender Identity Not on file Sexual Orientation Not on file documented as of this encounter Plan of Treatment Not on file documented as of this encounter Procedures Procedure Name Priority Date/Time Associated Diagnosis Comments FILM LIBRARY- STORAGE ONLY CT FACE Routine 02/28/2016 12:00 AM EDT documented in this encounter Results * Film Library-Storage Only CT Face (02/28/2016 12:00 AM EDT) Narrative [facility] - 08/19/2019 6:42 PM EST This exam is auto-finalizing. It's purpose is for storage only. Diya Gifford MD IMG FILM LIBRARY OR DERABLES [place], [place] documented in this encounter Visit Diagnoses Not on filedocumented in this encounter Care Teams Core Finisher Relationship Specialty Start Date End Date Sly Schulzt MD [address] [place] [address] [address] [place] [address] PCP - General 05/21/10 08/17/19 documented as of this encounter
--- OUTSIDE RECORDS SUMMARY | 2024-02-23 17:21 | XMS_ITS | Encounter Summary ---
Author Organization [facility] Address [facility] [place] [address] Care Team Providers Care Machine Tool Technology Instructor Name Role Phone Diya Gifford MD Primary Care Provider [phone] Reason for Referral * Diagnostic Test (Routine) - Closed Specialty Diagnoses / Procedures Referred By Ar salinas Referred To Contact Radiology Diagnoses Hx of cleft palate Oronasal fistula Procedures CT Face wo Contrast Mau Ochoa MD [facility] [place] [address] [facility] [place] [address] Referral ID Status Reason Start Date Expiration Date V isits Requested Visits Authorized [id number] Closed Specialty Service Requested 12/29/2019 06/26/2020 1 1 Encounter Details Date Type Department Care Team (Late st Contact Info) Description 11/22/2019 Orders [place] [address] Mau Ochoa MD [facility] [place] [address] Oronasal fistula (Primary Dx); Hx of cleft palate Social History Tobacco Use Types Packs/Day Years Used Date Smoking Tobacco: Never Smokeless Tobacco: Never Sex and Gender Information Value Date Recorded Sex Assigned at Not on file Gender Identity Not on file Sexual Orientation Not on file documented as of this encounter Plan of Treatment Not on file documented as of this encounter Results * CT Face wo [...] contact the number below. Electronically signed by: OLIVIA Negro [facility] ([phone]),at 01/10/2020 4:38 PM Mau Ochoa MD IMG CT ORDERABLES documented in this encounter Visit Diagnoses Diagnosis Oronasal fistula- Primary Cleft palate, unspecified Hx of cleft palate Personal history of (corrected) congenital malformations of eye, ear, face and neck Hx of cleft palate Personal history of (corrected) congenital malformations of eye, ear, face and neck Oronasal fistula Cleft palate, unspecified documented in this encounter Care Teams Machine Tool Technology Instructor Relationship Specialty Start Date End Date Diya Gifford MD [address] [place] [address] PCP - General Family Medicine 08/18/19 documented as of this encounter
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
--- OUTSIDE RECORDS SUMMARY | 2024-02-23 17:21 | XMS_ITS | Encounter Summary ---
[place] [address] Care Team Providers Care Lime Sludge Kiln Operator Name Role Phone Diya Gifford MD Primary Care Provider [phone] Encounter Details Date Type Department Care Team (Late st Contact Info) Description 10/14/2019 Orders [place] [address] Laly Dey, REEL STRIPPER Social History Tobacco Use Types Packs/Day Years [...] on filedocumented in this encounter Care Teams Lime Sludge Kiln Operator Relationship Specialty Start Date End Date Diya Gifford MD [address] [place] [address] PCP - General Family Medicine 08/18/19 documented as of this encounter
--- OUTSIDE RECORDS SUMMARY | 2024-02-23 17:21 | XMS_ITS ---
Author Organization Unknown Address [address] [place] [phone] Phone Care Team Providers Care Parts Administrator Name Role Phone EROS Aguilar Attending Unavailable RADHIKA Dhillon Primary Unavailable Results XR ELBOW LT 3V MIN* - Comple kiarra: 07/31/2021 12:08 LOINC: LEFT ELBOW - 3 VIEWS:Compari son is made with 02/17/19. No bone, joint or soft tissue abnormality is identified. Dictated by: JONNATHAN ROMERO MD Transcribed by: ZULEIMA 07/31/2112:43 D Saturday, July 31, 2021 11:30:55 AM [id number] Electronically Reviewed and Signed By: APRIL ROMERO MD 08/01/21 12:46 Copy for: [facility] IN[facility] Social History Type Status Start Date End Date Code Code Syst em Smoking History Never smoker (Never Smoked) 770086314 SNOMED CT Sex Female Medications Medication Start Date End Date Route Frequency Dose Code Code System Medication Instructions Home Meds Amitriptyline HCl 100MG Oral Tablet 07/19/2021 Unknown ORAL BEDTIME 100 MILLIGRAMS 254800 RxNorm TAKE 100 MILLIGRAMS ORAL BEDTIME Cyclobenzaprine 10MG Oral Tablet 07/19/2021 Unknown ORAL NEEDED THREE TIMES A DAY 10 MILLIGRAMS 604446 RxNorm TAKE 10 MILLIGRAMS ORAL NEEDED THREE TIMES A DAY Doxycycline 100MG Oral Capsule 07/19/2021 Unknown ORAL BEDTIME 100 MILLIGRAMS 0802162 RxNorm TAKE 100 MILLIGRAMS ORAL BEDTIME Gabapentin 800MG Oral Tablet 07/19/2021 Unknown ORAL BEDTIME 800 MILLIGRAMS 850664 RxNorm TAKE 800 MILLIGRAMS ORAL BEDTIME Loratadine 10MG Oral Tablet 07/19/2021 Unknown ORAL NEEDED DAILY 10 MILLIGRAMS 676123 RxNorm TAKE 10 MILLIGRAMS ORAL NEEDED DAILY Metoprolol Succinate 100MG Oral Tablet, Extended Release 07/19/2021 Unknown ORAL BEDTIME 100 MILLIGRAMS 236987 RxNorm TAKE 100 MILLIGRAMS ORAL BEDTIME Omeprazole 40MG Oral Capsule, Delayed Release 07/19/2021 Unknown ORAL BEDTIME 40 MILLIGRAMS 228575 RxNorm TAKE 40 MILLIGRAMS ORAL BEDTIME Percocet 5MG-325MG Oral Tablet 07/19/2021 Unknown ORAL NEEDED THREE TIMES A DAY 1 unit(s) 5200439 RxNorm TAKE 1 EACH ORAL NEEDED THREE TIMES A DAY SF 5000 Plus 1.1% Dental Cream 07/19/2021 Unknown DENTAL NEEDED 1 unit(s) 064932 RxNorm 1 EACH DENTAL NEEDED Venlafaxine HCl 150MG Oral Capsule, Extended Release 07/19/2021 Unknown ORAL BEDTIME 150 MILLIGRAMS 647784 RxNorm TAKE 150 MILLIGRAMS ORAL BEDTIME Venlafaxine HCl 37.5MG Oral Tablet 07/19/2021 Unknown ORAL BEDTIME 37.5 MILLIGRAMS 206780 RxNorm TAKE 37.5 MILLIGRAMS ORAL BEDTIME Voltaren Gel 1% Topical application Gel/Jelly 07/19/2021 Unknown TOPICA L APPLIC ATION TWICE A DAY 1 unit(s) 173554 RxNorm 1 EACH TOPICAL APPLICATION TWICE A DAY Zolpidem Tartrate 12.5MG Oral Tablet, Extended Release 07/19/2021 Unknown ORAL NEEDED AT BEDTIME 12.5 MILLIGRAMS 714875 RxNorm TAKE 12.5 MILLIGRAMS ORAL NEEDED AT BEDTIME diphenhydrAMINE HCl 25MG Oral Capsule 07/19/2021 Unknown ORAL DAILY 25 MILLIGRAMS 5279498 RxNorm TAKE 25 MILLIGRAMS ORAL DAILY hydrOXYzine HCl 25MG Oral Tablet 07/19/2021 Unknown ORAL TWICE A DAY 75 MILLIGRAMS 757088 RxNorm TAKE 75 MILLIGRAMS ORAL TWICE A DAY hydroCHLOROthia zide 12.5MG Oral Tablet 07/19/2021 Unknown ORAL BEDTIME 12.5 MILLIGRAMS 413647 RxNorm TAKE 12.5 MILLIGRAMS ORAL BEDTIME Percocet 5MG-325MG Oral Tablet 09/18/2022 Unknown ORAL NEEDED EVERY 4 HOURS 8115967 RxNorm TAKE 1-2 TABLET ORAL NEEDED EVERY 4 HOURS Flomax 0.4MG Oral Capsule 09/18/2022 Unknown ORAL DAILY 1 CAPSULE 723543 RxNorm TAKE 1 CAPSULE ORAL DAILY UNTIL STONE PASSES Ibuprofen 200MG Oral Tablet 09/18/2022 Unknown ORAL EVERY 6 HOURS 3 TABLET 441342 RxNorm TAKE 3 TABLET ORAL EVERY 6 HOURS NEEDED FOR PAIN UNTIL STONE PASSES Assessment You had the following problems:HYPERTENSIONPTSDSYNCOPECHEST PAINWEAKNESSURETEROLITHIASIS Hospital Discharge Instructions Should you have any questions prior to discharge, please contact a member of your healthcare team. If you have left the hospital and have any questions, please contact your primary care physician. Reason For Referral No Data Found Problems Problem Start Date Resolved Date Status Code Code System HYPERTENSION active 90226310 SNOMED- CT PTSD active 70418826 SNOMED-CT SYNCOPE active 565223722 SNOMED-CT CHEST PAIN active 25346925 SNOMED-CT WEAKNESS active 41502651 SNOMED-CT URETEROLITHIASIS active 59425459 SNO MED-CT MIGRAINE 07/18/2021 resolved 57853777 SNOMED-CT CARPAL TUNNEL 07/18/2021 resolved 15113676 SNOME D-CT CHRONIC PAIN 07/18/2021 resolved 72803857 SNOMED -CT TONSILLITIS 07/18/2021 resolved 14078011 SNOMED- CT TMJ SYNDROME 07/18/2021 resolved 299370546 SNOMED -CT FIBROMYALGIA 07/18/2021 resolved 235676288 SNOMED -CT 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 17873627 SNOMED -CT 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 94343988 SNOMED-CT ANXIETY 07/18/2021 resolved 56835181 SNOMED-CT DEPRESSION 07/18/2021 resolved 74963878 SNOMED-C T ACID REFLUX 07/18/2021 resolved 895452511 SNOMED- CT CHRONIC PAIN 07/18/2021 resolved 96720691 SNOMED -CT HYPERTENSION 07/18/2021 resolved 68152365 SNOMED -CT Allergies and Adverse Reactions Allergy Substance Reaction Severity Start Date Concern Status Code Code System SULFA (sulfonamide) Vomiting (SNOMED-CT: 718416280) Active 17851974 SNOMED-CT PENICILLIN G Hives (SNOMED-CT: 545172371) Moderate Active 7980 RxNorm SHELLFISH Anaphylaxis (SNOMED-CT: 49574029) Active 602282702 SNOMED-CT FISH PROTEIN Anaphylaxis (SNOMED-CT: 69597123) Active 39627440 SNOMED-CT TOPAMAX Active 507093 RxNorm Plan of Treatment MM SCREEN BILAT 07/02/2022 PRE-OP COVID-19 TESTING 08/13/2021 MM SCREEN BILAT 05/28/2021 Encounters Encounter Diagnosis Start Date Code Code Sys tem 07/31/2021 [id number] SNOMED-CT Personal Care Team Section Performer Name Performer Role Active Date Inactive Da te
--- OUTSIDE RECORDS SUMMARY | 2024-02-23 17:21 | XMS_ITS | Encounter Summary ---
Author Organization [facility] Address [facility] [place] [address] Care Team Providers Care Curb Setter Helper Name Role Phone Diya Gifford MD Primary Care Provider [phone] Reason for Visit * Reason Comments Follow Up Surgery s/p rhinoplasty 03/29 2 - post poned surgery with ENT - would like your thoughts on the procedure Encounter Details Date Type Department Care Team (Late st Contact Info) Description 04/16/2021 4:15 PM EDT Office [place] [address] Mau Ochoa MD [facility] [place] [address] Surgery follow-up Social History Tobacco Use Types [...] as of this encounter Progress Notes * Christiano Gaviota M - 04/16/2021 4:15 PM EDT Plastic Surgery Follow-up Note Mau Ochoa MD. Reason for visit: F/U status post procedure Date of surgery: 04/09/2020 Procedure(s): rhinoplasty for congenital nasal deformity Complications: None reported HPI: Patient reports that she is doing well overall. She has been seeing Dr. Lion from our ENT service regarding the nasal septal perforation that she had from a prior surgery elsewhere and that she is attempting to address this either subsequently with a button or a skin graft. She has been breathing otherwise well and is pleased with the appearance of the nose. Examination: Patient is alert, conversant, comfortable, ambulating Markedly improved symmetry of the nose with well-healed incision and excellent tip support. Impression: Marilin Allen is a 46 y.o. female who was seen today for follow-up after the above procedure. Please see the operative note for details. She is doing well. She will continue working withDr. Lion for management of the septal perforation which she did present with previously. She is healing quite well from her rhinoplasty she is very pleased as are we. She knows to contact me if she has any questions in the future. Plan: As needed Follow up: documented in this encounter Plan of Treatment Not on file documented as of this encounter Visit Diagnoses Diagnosis Surgery follow-up Follow-up examination, following unspecified surgery documented in this encounter Care Teams Curb Setter Helper Relationship Specialty Start Date End Date Diya Gifford MD [address] [place] [address] PCP - General Family Medicine 08/18/19 documented as of this encounter
--- OUTSIDE RECORDS SUMMARY | 2024-02-23 17:21 | XMS_ITS | Encounter Summary ---
Author Organization [facility] [place] [address] Care Team Providers Care Mining Detail Draftsperson Name Role Phone Diya Gifford MD Primary Care Provider [phone] Encounter Details Date Type Department Care Team (Late st Contact Info) Description 05/14/2022 10:45 AM EST Office Visit Dermatology [facility] [address] [place] [address] Luciano Parson MD [address] [facility] [place] [address] Prurigo; Skin tag Social History Tobacco Use Types Packs/Day Years Used Date Smoking Tobacco: Never Smokeless Tobacco: Never Alcohol Use Standard Drinks/Week Comments Yes 0 (1 standard drink = 0.6 oz pur e alcohol) Rare Sex and Gender Information Value Date Recorded Sex Assigned at Not on file Gender Identity Not on file Sexual Orientation Not on file documented as of this encounter Progress Notes * Luciano Parson MD - 05/14/2022 10:45 AM EST Images from the original note were not included. DEPARTMENT OF DERMATOLOGY Medical Dermatology Clinic Provider: Luciano Parson MD FAAD at Dermatology [facility] Patient's preferred name Marilin Preferred contact method for results []Phone: with detailed results? []Yes []No []myD-H []Letter PAST MEDICAL HISTORY (if blank, patient denies history) Melanoma -- Dysplastic nevi -- SCC -- BCC -- [place] [] cryotherapy [] efudex [] PDT [] Other Relevant Medications [] Immunosuppression [] Transplant [] Oncogenic medication [] Nicotinamide 500mg po bid Prurigo Other relevant history FAMILY HISTORY (if blank, patient denies history) Melanoma -- NMSC -- Other relevant history Lung Cancer SOCIAL HISTORY ?? History of Present Illness: Marilin Allen is 47 y.o. and here for the following: ?? 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 Tolerated ILK well with no complications. ?? Skin tags on the neck Medications: Reviewed in eD-H Allergies: Reviewed in eD-H Skin Examination Standby: Simone Victor MA Well developed, well-nourished in no apparent distress, alert and oriented to time, person, place and situation. Focused examination of the skin of the face significant for the following: Exam Findings/Assessment/Plan Prurigo lichenified 3x3mm pink papule on the left preauricular cheek. No recurrence on the left chin. Laboratory Results [id number]. Left preauricular cheek, skin shave biopsy: - Verrucoid epidermal hyperplasia with parakeratosis, vascular ectasia and subtle fibrosis ??(see discussion) Recurrence. Recommend repeat ILK Counseled: Benign, associated with picking/itching, and management by breaking itch/scratch cycle. Treatments include but are not limited to topical steroids, ILK, surgical removal and cryotherapy; discussed major risk of ILK including skin atrophy and major risks of excision or cryotherapy including pain, scar and infection. Answered all questions. Patient elects to proceed with injections ??? Total 1 treated with Kenalog 2.5mg/ml, total 0.2 ml after verbally discussing the disease and treatment options, Kenalog IL method, expected results/course and potential adverse effects, including pain, dyspigmentation, atrophy, and recurrence. Patient verbally agreed. Area prepped with alcohol. Blanching noted. Hemostasis achieved with drysol, as needed. Post-procedure pain 0/10. Patient tolerated well with no complications. Wound care instructions provided. Skin Tags Pedunculated flesh-colored papules on the flexural neck Benign, a/w age, obesity and diabetes and sites of friction, and treatment options for symptomatic lesions, including but not limited to OTC products, shave or scissor removal, cryotherapy, electrocautery, laser. Answered all questions. Patient elects to not treat clinically ?? Patient will try OTC products first such as tag away Follow-up: 6 weeks for re-evaluate prurigo post ILK. Return sooner as needed for suspicious lesion,new or worsening dermatitis. [] Recall placed [] Forwarded to product delivery specialist [x] Patient scheduled before exiting Scribe attestation: Simone Victor MA has performed the documentation for this encounter in the presence of and acting as a scribe for Luciano Parson MD FAAJenna. I performed the above scribed service and agree with the accuracy of the documentation in this encounter. Reviewed and signed by: Luciano Parson MD FAAD Dermatology [facility] documented in this encounter Plan of Treatment Not on file documented as of this encounter Visit Diagnoses Diagnosis Prurigo Skin tag Unspecified hypertrophic and atrophic condition of skin documented in this encounter Care Teams Mining Detail Draftsperson Relationship Specialty Start Date End Date Diya Gifford MD [address] [place] [address] PCP - General Family Medicine 08/18/19 documented as of this encounter
--- OUTSIDE RECORDS SUMMARY | 2024-02-23 17:21 | XMS_ITS | Encounter Summary ---
Author Organization [facility] [place] [address] Care Team Providers Care International Accountant Name Role Phone Diya Gifford MD Primary Care Provider [phone] Encounter Details Date Type Department Care Team (Late st Contact Info) Description 04/03/2020 Telephone [facility] [place] [id number] Amanda Pennington Social History Tobacco Use Types Packs/Day Years Used Date Smoking Tobacco: Never Smokeless Tobacco: Never Sex and Gender Information Value Date Recorded Sex Assigned at Not on file Gender Identity Not on file Sexual Orientation Not on file documented as of this encounter Miscellaneous Notes * Telephone Encounter - Amanda Bhatti - 04/03/2020 9:44 AM EDT 1. ASK: TRAVEL ???Have you travelled outside of [place] ([place], [place], [place], [place], [place], [place]) in the past 14 days??? 2. ASK: EXPOSURE Have you been in contact with anyone suspected or confirmed to have COVID-19 in the past 14 days??? 3. ASK: SYMPTOMS Do you have any new or worsening symptoms on this list that are not related to another medical condition? Fever or chills ?? Cough ?? Shortness of breath or difficulty breathing ?? Fatigue ?? Muscle or body aches ?? Headache ?? Loss of taste or smell ?? Sore throat ?? Congestion or runny nose ?? Nausea or vomiting ?? Diarrhea If 'Yes' to any of the questions above Transfer patient to the Covid-19 Hotline Number ([phone]) for further instructions. If 'No' to all of the questions above Is this the first test for Covid 19 Yes If no, please list date of previous test, result, and type of test (Molecular, Antigen, Antibody orunknown): Resides in congregate care setting No Employee or Household Member of Employee No Healthcare Worker No Schedule appointment: Give directions to testing facility. Please advise patient that all passengers in the vehicle must wear a mask and to please either leave their dogs at home or have them crated/behind a net. Telephone call placed/received to schedule Covid 19 testing with patient. Ordering provider: Mau Ochoa MD Testing Facility: [facility] Date of Testin04/07/2020 Time of Testin:15am Symptoms: No documented in this encounter Plan of Treatment Not on file documented as of this encounter Visit Diagnoses Not on filedocumented in this encounter Care Teams International Accountant Relationship Specialty Start Date End Date Diya Gifford MD [address] [place] [address] PCP - General Family Medicine 08/18/19 documented as of this encounter
--- OUTSIDE RECORDS SUMMARY | 2024-02-23 17:21 | XMS_ITS | Encounter Summary ---
Author Organization [facility] Address [facility] [place] [address] Care Team Providers Care Pc Support Specialist Name Role Phone Diya Gifford MD Primary Care Provider [phone] Encounter Details Date Type Department Care Team (Late st Contact Info) Description 10/22/2021 Ancillary [facility] [place] [address] Diya Gifford MD [address] [place], [place] [address] Social History Tobacco Use Types Packs/Day Years [...] Name Priority Date/Time Associated Diagnosis Comments FILM LIBRARY STORAGE ONLY MR SPINE Routine 10/22/2021 12:00 AM EDT documented in this encounter Results * Film Library- Storage Only MR Spine (10/22/2021 12:00 AM EDT) Narrative [facility] - 08/10/2023 3:23 PM EST This exam is auto-finalizing. It's purpose is for storage only. Diya Gifford MD IMG FILM LIBRARY OR DERABLES [place], [place] documented in this encounter Visit Diagnoses Not on filedocumented in this encounter Care Teams Pc Support Specialist Relationship Specialty Start Date End Date Diya Gifford MD [address] [place] [address] PCP - General Family Medicine 08/18/19 documented as of this encounter
--- OUTSIDE RECORDS SUMMARY | 2024-02-23 17:21 | XMS_ITS | Encounter Summary ---
Author Organization [facility] Address [facility] [place] [address] Care Team Providers Care Powdered Metal Supervisor Name Role Phone Diya Gifford MD Primary Care Provider [phone] Reason for Visit * Auth/Cert Specialty Diagnoses / Procedures Referred By Ar salinas Referred To Contact Diagnoses cleft nasal deformity Procedures PRO REBEKA NOSE/CLEFT LIP/TIP PRO REBEKA NOSE/CLEFT LIP/TIP, SEPTUM PRO REPAIR OF NASAL SEPTUM RHINOPLASTY FOR CONGENITAL NASAL DEFORMITY, COLUMELLAR LENGTHENING, TIP ONLY (WRVU 10.32) RHINOPLASTY FOR CONGENITAL NASAL DEFORMITY, COLUMELLAR LENGTHENING, TIP, SEPTUM, OSTEOTOMIES (WRVU 20.28) SEPTOPLASTY OR SMR, W/ OR W/O CARTILAGE SCORING, CONTOURING OR REPLACEMENT W/ GRAFT (WRVU 7.01) Referral ID Status Reason Start Date Expiration Date Visits Re quested Visits Authorized [id number] 1 1 Encounter Details Date Type Department Care Team (Latest Contact Info) Description 04/09/2020 10:23 AM EDT - 04/09/2020 3:23 PM EDT Hospital Encounter [place] [id number] Mau Ochoa MD [facility] [place] [address] Nasal septal perforation; Congenital cleft lip nasal deformity Discharge Disposition: Home Social History Tobacco Use [...] Sign Reading Time Taken Comments Blood Pressure 120/64 04/09/2020 2:58 PM EDT Pulse 110 04/09/2020 2:58 PM EDT Temperature 35.9 ??C (96.6 ??F) 04/09/2020 1:58 PM ED T Respiratory Rate 18 04/09/2020 2:58 PM EDT Oxygen Saturation 96% 04/09/2020 2:58 PM EDT Inhaled Oxygen Concentration - - Weight - - Height 152.4 cm (5') 04/09/2020 10:49 AM EDT Body Mass Index - - documented in this encounter Discharge Instructions * Discharge Instructions* Muriel Marcus, RN - 04/09/2020 11:41 AM EDT At 11:00 am you received 1000 mg of acetaminophen- Your next dose should not be taken before 8 hours have passed. Next dose not before- 7:00 pm today. You should not take more than a total of 3000 mg of acetaminophen in a 24 hour period. SCOPOLAMINE PATCH DISCHARGE INSTRUCTIONS You are wearing a scopolamine patch.This is a medication patch used to prevent and treat nausea andvomiting after surgery. The patch is located behind your RIGHT ear. Please follow these instructions while you are wearing the patch. Try not to touch the patch. ??? If you do touch the patch, wash your hands right away. Make sure to remove all traces of medication from your hands. ??? If the medication gets on your hands and then you touch your eyes, your vision may become blurry or your pupils may widen. These are both normal and temporary reactions; they will go away shortly. You may remove the patch as early as: TONIGHT, BUT must remove it no later than 11:40 AM on 04/11/2020. There will still be some active ingredients on the patch, so fold it in half (with the sticky sidestogether) and throw it in the trash. This will help prevent others from coming into contact with it. After removing the patch, carefully wash your hands and behind your ear (or wherever the patch was placed) with soap and water. ?? If you have not urinated in 6-8 hours after your surgery, remove the patch and call your surgeon. General Anesthesia Discharge Instructions Go home and rest. You may be sleepy for several hours. Take it easy as sudden position changes may cause nausea and/or dizziness. Use caution on stairs. Follow a light to regular diet as tolerated today. If nausea occurs, start with clear liquids, and progress slowly to a regular diet. Do not drive, operate machinery, drink alcoholic beverages or make any legal decisions after havinggeneral anesthesia. The medications given change your reaction time and alter your judgement. IV site -- slight redness is normal, you can use warm compresses. If tenderness and redness increases or foul drainage occurs, please contact your M.D. Patients who have had endotracheal tubes/LMA (tubes used by the anesthesia staff to ensure a safe airway during your operation) may have a sore throat. This is normal and cold liquids or soothing lozenges will help ease this discomfort. Narcotic pain medications can cause constipation, please ask the surgeons office what they recommend for prevention of this. Some non-pharmaceutical means of constipation prevention include increasing intake of fluids, eating more fruits and vegetables as well as fruit juices. If you are uncomfortable and/or unable to urinate within 8 hours of discharge and it is before 5 pm, call your physician. If it is after 5pm go to the closest emergency room or call the hospital keypunch operator at [phone] and ask for physician plate conditioner covering for your physician. Questions or problems after 5pm or on a weekend: Call the [facility] keypunch operator at and ask for the physician plate conditioner covering for your doctor. * Patient Instructions* Jenny Rollins MD - 04/09/2020 7:53 AM EDT What to Expect.... The healing process varies with each person. Pain (short term and fci) With any surgery there is some discomfort or pain. We recommend you take tylenol for pain. You may take 1000 mg every 6-8 hours as needed. Do not take more than 3000 mg in a 24 hour period. Be careful if you are taking tylenol and a narcotic medication, as some narcotics contain tylenol. To help with pain and swelling you should use ice and keep your head elevated as much as possible. Swelling Moderate bruising and swelling is normal in the first few weeks after surgery. The swelling will gradually go down, but it may remain for 3 to 6 months. To help with pain and swelling you should use ice and keep your head elevated as much as possible. Showering You may shower 48 hours following your surgery. Do not take a bath or use a hot tub until incisionsare completely healed. Incisions/Dressings Do not remove steri strip bandages. Apply bacitracin ointment daily to incision. Activity (???If it hurts, don???t do it?? ) Do not blow your nose until cleared by your surgeon. Keep your head elevated as much as possible. No heavy lifting or strenuous activity. Complications Call your doctor with the following signs of a problem: a temperature over 100.4 F or 38 C redness at the incision line that spreads away from the incision after the first 48 hours thick yellow, foul smelling drainage increasing pain that is not relieved by your pain medicine Contact your Doctor To make an appointment or for questions about scheduling, please contact our administrative officesat [phone] For clinical questions, please call our nurses at [phone] Both offices are open Thursday thru Thursday 8a - 5p. With emergencies after hours, call the hospital keypunch operator at [phone] and ask for the Plastic Surgery Resident plate conditioner. Future Appointments Date Time Provider Department Center 04/16/2020 9:30 AM Sandi Wong APRN [facility] [address] [place] [address] documented in this encounter Medications at Time [...] BY MOUTH TWICE A DAY 08/17/2019 Acidophilus-Pectin, [place] 25 million cell -100 mg Tablet TAKE [...] as needed. documented as of this encounter Progress Notes * Demetrius Grace RN - 04/09/2020 3:22 PM EDT Discharge instructions and medications reviewed with patient and escort. All questions answered andwritten copy sent home with patient. Patient ambulated to car for discharge accompanied by [facility] staff member. Reminded to elevate and ice nose area. Tylenol for pain * Nelly Gonzalez RN - 04/06/2020 2:56 PM EDT During this call the patient was questioned regarding travel outside of the [facility], fever, cough, SOB or other illness in the last 14 days. Patient also questioned regarding any exposure to a COVID positive person, a person awaiting results from testing or a person in quarantine. Patient denies any positive responses to the above questions for themselves or their escort for theday of procedure. Patient informed of procedure to be followed upon arrival to the [facility]. That being, COVID questions will be asked again, temperature will be taken, patient and caregiver/tier truck driver will be given a mask to wear the entire time they are in the [facility] building. COVID test completed: scheduled 04/07 at [facility] @ 1015 Result of test: Action taken: * Yessenia Prather RN - 04/03/2020 4:53 PM EDT During this call the patient was questioned regarding travel outside of [facility], fever, cough, SOB or other illness in the last 14 days. Patient also questioned regarding any exposure to aCOVID positive person, a person awaiting results from testing or a person in quarantine.Patient denies any positive responses to the above questions for themselves or their escort for the day of procedure. Patient informed of procedure to be followed upon arrival to the [facility]. That being, COVID questions will be asked again, temperature will be taken, patient and caregiver/tier truck driver will be given a mask to wear the entire time they are in the [facility] building. documented in this encounter H&P Notes * Jenny Rollins MD - 04/09/2020 11:00 AM EDT Plastic Surgery Preoperative H&P: Patient Name: Marilin Allen Patient : 1975 Today's Date: 04/09/2020 Marilin Allen is a 45 y.o. female with prior cleft lip/palate repair who presents for cleft rhinoplasty. No changes since last seen. Past Medical History: Diagnosis Date ??? Acute pharyngitis ??? Anxiety ??? Bilateral lower extremity edema ??? Chronic diarrhea ??? Chronic pain ??? Cystic acne ??? Depression ??? Fatty liver ??? Fibromyalgia syndrome ??? Headache ??? History of Lyme disease ??? Hypertension ??? Incomplete rotator cuff tear ??? Insomnia ??? Left carpal tunnel syndrome ??? Obesity ??? Opioid dependence ??? PTSD (post-traumatic stress disorder) ??? Seasonal allergies Past Surgical History: Procedure Laterality Date ??? CARPAL TUNNEL RELEASE Left 02/2019 ??? CLEFT PALATE REPAIR ??? ULNAR TUNNEL RELEASE Left 02/2019 History reviewed. No pertinent family history. Social History Socioeconomic History ??? Marital status: Spouse name: Not on file ??? Number of children: Not on file ??? Years of education: Not on file ??? Highest education level: Not on file Occupational History ??? Not on file Social Needs ??? Financial resource strain: Not on file ??? Food insecurity Worry: Not on file Inability: Not on file ??? Transportation needs Medical: Not on file Non-medical: Not on file Tobacco Use ??? Smoking status: Never Smoker ??? Smokeless tobacco: Never Used Substance and Sexual Activity ??? Alcohol use: Yes Comment: Rare ??? Drug use: Never ??? Sexual activity: Not on file Lifestyle ??? Physical activity Days per week: Not on file Minutes per session: Not on file ??? Stress: Not on file Relationships ??? Social connections Talks on phone: Not on file Gets together: Not on file Attends voodoo service: Not on file Active member of club or organization: Not on file Attends meetings of clubs or organizations: Not on file Relationship status: Not on file ??? Intimate partner violence Fear of current or ex partner: Not on file Emotionally abused: Not on file Physically abused: Not on file Forced sexual activity: Not on file Other Topics Concern ??? Not on file Social History Narrative ??? Not on file Allergies Allergen Reactions ??? Unclassified Drug Nausea And Vomiting Tylenol with codeine ??? Erythromycin Other reaction(s): Unknown ??? Shellfish Containing Products ??? Sulfa (Sulfonamide Antibiotics) ??? Topiramate Other reaction(s): blurred vision Review of systems: As per HPI, otherwise non-contributory. Exam: General: NAD, alert, oriented Resp: CTAB CV: normal rate, regular rhythm A/P: Marilin L Tiffany is a 45 y.o. female with prior cleft lip/palate repair who presents for cleft rhinoplasty. - Proceed to OR. The risks, benefits and indications were reviewed with the patient and there remains an indication for surgery. Consent signed. - Preoperative abx ordered. Jenny Rollins MD Plastic Surgery Resident P# [id number] documented in this encounter Miscellaneous Notes * Op Note - Mau Ochoa MD - 04/09/2020 3:23 PM EDT [facility] Operative Note Patient Name: Marilin Allen : [id number] MR#: [id number] Case Date: 04/09/2020 Surgeon: Surgeon(s) and Role: * Mau Ochoa MD - Primary * Jenny Rollins MD - Resident Preoperative diagnosis: cleft nasal deformity Postoperative diagnosis: cleft nasal deformity Procedure(s) (LRB): RHINOPLASTY FOR CONGENITAL NASAL DEFORMITY, COLUMELLAR LENGTHENING, TIP ONLY (WRVU 10.32) (Bilateral) ?? Anesthesia: General ?? Findings: scarred lower lateral cartilages released and repositioned. ?? Complications: none ?? Estimated Blood Loss: 5cc Specimens removed during surgery: None Fluids: 800 cc crystalloid ?? PRBCs: none (See Anesthesia Record/Report for Other Blood Products) Urine Output: (no urine output recorded) ?? Drains: none ?? Disposition: awakened from anesthesia, extubated and taken to the recovery room in a stable condition, having suffered no apparent untoward event. ?? Condition: doing well without problems HPI/Surgical Indications: Marilin Allen was seen today regarding hx cleft palate. She is well-appearing for today's visit. Pt had a nasal endoscopy prior to her visit today. We discussed that I will be able to have a better understanding of how to proceed after I am able to review the imaging from today. She may elect to proceed with the button with Dr. Lion. I informed her that the cleft rhinoplasty may be a difficult procedure as she has a prior hx of surgery to address the nasal septal perforation which compromises the tissue. I informed her that we can proceed with an open rhinoplasty to address some of the inconsistencies that she would like correct, However this procedure is much different than surgical interve ntion for the nasal septal perforation. I recommend initially proceeding with the button to determine if this will resolve some of the nasal discharge. She is extremely unhappy with the appearance ofher nose and would like to proceed with a cleft rhinoplasty to improve the structure and aestheticsof her nose. We had a comprehensive discussion regarding the indication and surgical approach. We re viewed the surgical technique and post-op recovery expectations carefully and reviewed the risks ofthe procedure including bleeding, scarring, infection, septal perforations healing problems, persistent deformity, asymmetry, contour irregularities, and need for future surgical revision and potential cost associated with as well as the high general need for revision in such surgeries as she has had this before. . She understood all of the above and wishes to proceed. All questions were answered in detail and to her satisfaction Procedure Description: Following the adequate induction of general endotracheal anesthesia and draped in usual sterile fashion. There were no problems nor complications with the induction of anesthesia. Afrin nasal pledgets were used for vasoconstriction and lidocaine 1% to the nares and the dorsum local anesthesia. A stairstep columellar midpoint incision was made to expose the lower lateral cartilages as well as in the lateral edges of the midline some region as well as the dorsum careful dissection and stasis was obtained connective tissue between the cartilages were for exposure of the area of the dorsal septum and the dorsal region of the nose . There has been significant scar tissue as a result ofher prior surgeries both as a young child and more recently. It appeared that these have been done in closed fashion. Utilizing the open approach several issues were identified. The lower lateral cartilage on the left appear to have been misplaced by evidence of a transection of the lower lateral cartilage and a previous surgery elsewhere. These 2 ends were identified. The upper lateral cartilagehad also been significantly displaced from the lower lip resulting in vestibular collapse. Therefore using a careful component separation approach all of the upper lateral cartilages were identified on the left and right as well as the position of the septum these were carefully . The transected right lower lateral cartilage was repaired using a 5-0 PDS suture careful dissection was taken down to the footplate of both the left and right lower lateral cartilages and carefully without any damage to the mucosa repositioning of the lower lateral cartilages to the septum and then to the upper lateral cartilages were then performed using a 5-0 PDS suture. At this point the upper lateral cartilages were then closed with a 5-0 PDS lateral cartilages with a 5-0 PDS with dorsal sutures to decrease the width of the nose in the boxing to as well as to improve the overall nasal symmetry. Nostril asymmetry w was much improved. The columellar incision and then a 6-0 Prolene was used to close the skin. A 5-0 plain suture was close the intranasal incisions. Mastisol and Steri-Strips were applied. The patient had an excellent overall result with a reductionof the dorsum and correction of the deformity. Steristrips and a dorsal splinting with Steri-Stripswere carefully placed on the dorsum of the nose region to assist with swelling' infraorbital nerve blocks were performed with Marcaine 1 cc bilaterally. The patient had an excellent aesthetic result at the conclusion of the case. The patient tolerated the anesthesia well and taken to the recovery room in stable condition. Attestation: Case Date: 04/09/2020 I was present for the entire procedure and performed all of the bull elements of this procedure. MAU OCHOA MD 04/10/2020 * Brief Op Note - Jenny Rollins MD - 04/09/2020 1:50 PM EDT Brief Operative Note Patient Name: Marilin Allen : [id number] MR#: [id number] Case Date: 04/09/2020 Surgeon: Surgeon(s) and Role: * Mau Ochoa MD - Primary * Jenny Rollins MD - Resident Preoperative diagnosis: cleft nasal deformity Postoperative diagnosis: cleft nasal deformity Procedure(s) (LRB): RHINOPLASTY FOR CONGENITAL NASAL DEFORMITY, COLUMELLAR LENGTHENING, TIP ONLY (WRVU 10.32) (Bilateral) Anesthesia: General Findings: scarred lower lateral cartilages released and repositioned. Complications: none Estimated Blood Loss: 5cc Specimens removed during surgery: None Fluids: 800 cc crystalloid PRBCs: none (See Anesthesia Record/Report for Other Blood Products) Urine Output: (no urine output recorded) Drains: none Disposition: awakened from anesthesia, extubated and taken to the recovery room in a stable condition, having suffered no apparent untoward event. Condition: doing well without problems (Please see the Surgical Encounter Summary for any Implant and Specimen details pertinent to this patient.) Infection Bundle used? N/A Post-Op Plan: - 1 week follow up for wound check and suture removal - Replace external nasal tape - No nose blowing - Ensure at least 1 appointment with attending surgeon within 1 month of surgery Future Appointments Date Time Provider Department Center 04/16/2020 9:30 AM Sandi Wong SENIOR MANAGER [employer] [facility] 4M [facility] documented in this encounter Plan of Treatment Not on file documented as of this encounter Procedures Procedure Name Priority Date/Time Associated Diagnosis Comments Rebeka Nose/Cleft Lip/Tip ([id number]) 04/09/2020 11:39 AM EDT Nasal septal perforation Congenital cleft lip nasal deformity RHINOPLASTY FOR CONGEN NASAL DEFORMITY, COLUMELLAR LENGTHEN, TIP ONLY Routine 04/09/2020 10:31 AM EDT Nasal septal perforation Congenital cleft lip nasal deformity documented in this encounter Visit Diagnoses Diagnosis Nasal septal perforation Other diseases of nasal cavity and sinuses 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 documented in this encounter Admitting Diagnoses Diagnosis Nasal septal perforation Other diseases of nasal cavity and sinuses 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 documented in this encounter Administered Medications Inactive Administered Medications - up to 3 most recent administrations Medication Order MAR Action Action Date Dose Rate Site acetaminophen (Tylenol) tablet 1,000 mg 1,000 mg, Oral, EVERY 6 HOURS SCHEDULED, First dose on Thu04/09/20 at 0730, Until Discontinued, Maximum dose of acetaminophen is 4000 mg from all sources in 24 hours., Routine Given 04/09/2020 11:01 AM EDT 1,000 mg HYDROmorphone (DILAUDID) injection 0.2-0.4 mg 0.2-0.4 mg, Intravenous, EVERY 5 MIN PRN, Starting on Thu04/09/20 at 1420, Until Thu04/09/20 at 1522, Pain, Give 0.2 mg every 5 minutes PRN for mild to moderate pain (1-5) Give 0.4 mg every 5 minutes PRN for moderate to severe pain (6-10). Hold for respiratory rate less than 10 per minute. Maximum dose 4 mg over one hour. If multiple pain medications are ordered, start with hydromorphone or morphine and use fentanyl for breakthrough pain., PACU Recovery, Routine Given 04/09/2020 2:31 PM EDT 0.4 mg scopolamine (TRANSDERM-SCOP) 1 mg over 3 days patch 1 dose, Starting on Thu04/09/20 at 1134, Until Thu04/09/20 at 1145, Muriel Marcus.: cabinet override Patch Applied 04/09/2020 11:45 AM EDT 1 patch Right Ear scopolamine (TRANSDERM-SCOP) 1 mg patch Patch Removal Transdermal, EVERY 24 HOURS, 1 dose, First dose on Thu04/10/20 at 1145, Remove scopolamine 1.5 mg patch, Recovery (Recovery-Hospital Unit) scopolamine (TRANSDERM-SCOP) 1 mg patch Patch Verification Transdermal, 2 TIMES DAILY, First dose on Thu04/09/20 at 2345, Until Discontinued, Verify scopolamine 1.5 mg patch., Recovery (Recovery-Hospital Unit) documented in this encounter Active and Recently Administered Medications Times are shown in EDT. Scheduled Medication Order 04/07/2020 04/08/2020 04/09/2020 acetaminophen (Tylenol) tablet 1,000 mg 1,000 mg, Oral, EVERY 6 HOURS SCHEDULED, First dose on Thu04/09/20 at 0730, Until Discontinued, Maximum dose of acetaminophen is 4000 mg from all sources in 24 hours., Routine 0730 (Due)1101 (Give n - Provider: Muriel Marcus RN) scopolamine (TRANSDERM-SCOP) 1 mg patch Patch Removal Transdermal, EVERY 24 HOURS, 1 dose, First dose on Thu04/10/20 at 1145, Remove scopolamine 1.5 mg patch, Recovery (Recovery-Hospital Unit) scopolamine (TRANSDERM-SCOP) 1 mg patch Patch Verification Transdermal, 2 TIMES DAILY, First dose on Thu04/09/20 at 2345, Until Discontinued, Verify scopolamine 1.5 mg patch., Recovery (Recovery-Hospital Unit) Continuous Medication Order 04/07/2020 04/08/2020 04/09/2020 lactated ringers infusion (CANCELED) 1,000 mL, at 100 mL/hr, Intravenous, CONTINUOUS, Starting on Thu04/09/20 at 1100, Until Thu04/09/20 at 1522, Day of Surgery (Day of Procedure) 1135 (New Bag - Prov ider: Pravin Witt CRNA)1405 (Stopped - Provider: Pravin Witt CRNA) PRN Medication Order 04/07/2020 04/08/2020 04/09/2020 bacitracin ointment (CANCELED) ONCE PRN, Starting on Thu04/09/20 at 1216, Until Thu04/09/20 at 1726, Intra-Operative (Intra-Procedure) 1216 (Given - Provid er: Mau Ochoa MD - Comment: On the field and used as needed) balanced salt (BSS) irrigation solution (CANCELED) ONCE PRN, Starting on Thu04/09/20 at 1216, Until 04/09/20 at 1726, Intra-Operative (Intra-Procedure), Routine 1216 (Given - Provid er: Mau Ochoa MD - Comment: On the field and used as needed for irrigation) HYDROmorphone (DILAUDID) injection 0.2-0.4 mg (CANCELED) 0.2-0.4 mg, Intravenous, EVERY 5 MIN PRN, Starting on Thu04/09/20 at 1420, Until Thu04/09/20 at 1522, Pain, Give 0.2 mg every 5 minutes PRN for mild to moderate pain (1-5) Give 0.4 mg every 5 minutes PRN for moderate to severe pain (6-10). Hold for respiratory rate less than 10 per minute. Maximum dose 4 mg over one hour. If multiple pain medications are ordered, start with hydromorphone or morphine and use fentanyl for breakthrough pain., PACU Recovery, Routine 1431 (Given - Provid er: Demetrius Grace RN) lidocaine-EPINEPHrine 1 %-1:100,000 injection (CANCELED) ONCE PRN, Starting on Thu04/09/20 at 1206, Until Thu04/09/20 at 1726, Intra-Operative (Intra-Procedure), Routine 1206 (Given - Provid er: Mau Ochoa MD) oxymetazoline (AFRIN) 0.05 % nasal spray (CANCELED) Administer over 3 Days, ONCE PRN, Starting on Thu04/09/20 at 1219, Until 04/09/20 at 1726, Intra-Operative (Intra-Procedure), Routine 1219 (Given - Provid er: Mau Ochoa MD - Comment: On the field and used to soak patties) No Frequency Medication Order 04/07/2020 04/08/2020 04/09/2020 scopolamine (TRANSDERM-SCOP) 1 mg over 3 days patch (COMPLETED) 1 dose, Starting on Thu04/09/20 at 1134, Until Thu04/09/20 at 1145, Muriel Marcus: cabinet override 1145 (Patch Applied - Provider: Muriel Marcus RN) documented in this encounter Care Teams Powdered Metal Supervisor Relationship Specialty Start Date End Date Diya Gifford MD [address] [place] [address] PCP - General Family Medicine 08/18/19 documented as of this encounter
--- OUTSIDE RECORDS SUMMARY | 2024-02-23 17:21 | XMS_ITS | Encounter Summary ---
Author Organization [facility] Address [facility] [place] [address] Care Team Providers Care Personal Banker Name Role Phone Diya Gifford MD Primary Care Provider [phone] Reason for Visit * Auth/Cert Specialty Diagnoses [...] Expiration Date Visits Re quested Visits Authorized [id number] 1 1 Encounter Details Date Type Department Care Team (Late st Contact Info) Description 04/09/2020 11:40 AM EDT Anesthesia Event [facility]patient [place] [address] Alejandra Otto MD [facility] [place] [address] Pravin Witt CRNA [facility] [place] [address] Anesthesia Record Procedure Summary Procedure Name Responsible Anesthesiologist Anesthesia Start Time Anesthesia Stop Time RHINOPLASTY FOR CONGENITAL NASAL DEFORMITY, COLUMELLAR LENGTHENING, TIP ONLY ([facility] 10.32) (Bilateral: Nose) Alejandra Otto MD 04/09/20 1140 04/09/20 1404 Events Date Time Event Comment 04/09/2020 1140 AN Verify 1140 Start 1140 An Start Data 1146 An Induction 1150 An Intubation 1153 Anesthesia Ready 1353 Extubation/LMA Out 1357 an stop data 1402 1404 Recovery or ICU Handoff Tamiko ent care was transferred to the destination unit staff after review of the patient's medical history, current anesthetic/surgical status and plan, according to the Provider Handoff Checklist. 1404 Stop Meds Name Total Midazolam 2 mg fentaNYL 100 mcg IV Lidocaine 60 mg Propofol 200 mg Rocuronium 50 mg Ondansetron 8 mg Dexamethasone 8 mg Neostigmine 3 mg Glycopyrrolate 0.4 mg Ketamine 10 mg/mL 90 mg Dexmedetomidine 20 mcg Propofol INF 480 mg ceFAZolin 2 g lactated ringers infusion 900 mL * Agents Name O2 Air N2O Sevoflurane (et) * Blood No blood administrations on file. Lines, Drains, and Airways Type Details Placement Removal (RETIRED) Peripheral IV Line - Single Lumen 04/09/20; 1128; median vein (underside of arm), left; [id number] catheter system; 24 gauge; 0; 04/09/20; 1521 04/09/20 1128 by Muriel Marcus RN 04/09/20 1521 by Demetrius Grace ETT Mask Ventilation: Ea sy (1); ETT Type: Cuffed, Oral, SUSAN; ETT Size: 7.5 mm; Indirect: Video; Notes: Asleep, Pre-O2, Stylette; Attempts: 1; Laryngoscopy Grade: 1; ETT Placement Verified By: Capnometry, Visual; Inserted by: Eduar; Removal Date: 04/09/20; Removal Time: 1353 04/09/20 1150 by Pravin Witt CRNA 04/09/20 1353 by Pravin Witt CRNA Incision 04/09/20; 1206; nose ; 02/24/22 (LDA cleanup utility RA#[id number]); 1715 (LDA cleanup utility RA#[id number]) 04/09/20 1206 by Mary Hagan RN 02/24/22 1715 by Blair Blake documented in this encounter Social History Tobacco [...] on file documented as of this encounter OR Notes * Anesthesia Postprocedure Evaluation - Alejandra Otto MD - 04/09/2020 3:58 PM EDT Department of Anesthesiology Post-procedure Note Patient: Marilin Allen Procedure Summary Date: 04/09/20 Room / Location: [facility] [place] [address] [place] [address] Anesthesia Start: 1140 Anesthesia Stop: 1404 Procedure: RHINOPLASTY FOR CONGENITAL NASAL DEFORMITY, COLUMELLAR LENGTHENING, TIP ONLY ([facility] 10.32) (Bilateral Nose) Diagnosis: Nasal septal perforation 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) Surgeon: Mau Ochoa MD Responsible Provider: Alejandra Otto MD Anesthesia Type: general ASA Status: 2 All Anesthesia Providers: Anesthesiologist: Alejandra Otto MD [employer] COUNSELOR: Pravin Witt CRNA Vitals Value Taken Time BP 120/64 04/09/20 1458 Temp 35.9 ??C (96.6 ??F) 04/09/20 1358 Pulse 110 04/09/20 1458 Resp 18 04/09/20 1458 SpO2 96 % 04/09/20 1458 Pain Level 4 04/09/20 1520 Patient Location: PACU/[facility] Level of Consciousness: Awake and Alert Pain Management: Satisfactory Analgesia PONV: None Cardiovascular Status: At Baseline and Hemodynamically Stable Respiratory Status: At Baseline and Room Air Postoperative Fluid Status: Intravascular EUvolemia Possible Anesthetic Complications: NONE apparent at time of evaluation Final Primary Anesthesia Type: General (The anesthetic type performed was the same as planned.) Comments: ALEJANDRA OTTO MD * Anesthesia Preprocedure Evaluation - Alejandra Otto MD - 04/09/2020 8:05 AM EDT Pre-Anesthesia Evaluation for: Marilin Allen a 45 y.o. female. Procedure(s): RHINOPLASTY FOR CONGENITAL NASAL DEFORMITY, COLUMELLAR LENGTHENING, TIP ONLY ([facility] 10.[facility]) RHINOPLASTY FOR CONGENITAL NASAL DEFORMITY, COLUMELLAR LENGTHENING, TIP, SEPTUM, OSTEOTOMIES ([facility] 20.28) SEPTOPLASTY OR SMR, W/ OR W/O CARTILAGE SCORING, CONTOURING OR REPLACEMENT W/ GRAFT ([facility] 7.01) Patient Active Problem List Diagnosis ??? Congenital cleft lip nasal deformity ??? Nasal septal perforation ??? Chronic pain disorder ??? Insomnia related to another mental disorder ??? Posttraumatic stress disorder ??? Hx of cleft palate ??? Oronasal fistula ??? Dysfunction of right eustachian tube ??? TMJ syndrome ??? Refractory obstruction of nasal airway ??? Unilateral complete cleft palate with cleft lip Past Medical History: Diagnosis Date ??? Acute [...] REPAIR ??? ULNAR TUNNEL RELEASE Left 02/2019 Social History Tobacco Use ??? Smoking status: Never Smoker ??? Smokeless tobacco: Never Used Substance Use Topics ??? Alcohol use: Not on file Social History Substance and Sexual Activity Drug Use Not on file Allergies Allergen Reactions ??? Unclassified Drug Nausea And Vomiting Tylenol with codeine ??? Erythromycin Other reaction(s): Unknown ??? Penicillins Hives Hives as a child, pt states she's had PCN since without problems. ??? Shellfish Containing Products ??? Sulfa (Sulfonamide Antibiotics) ??? Topiramate Other reaction(s): blurred vision Medications: MAR and/or home medications have been reviewed. Physical Exam: No data found. There is no height or weight on file to calculate BMI. Airway Assessment: Mallampati: II TM distance: >3 FB Neck ROM: full Cardiovascular Assessment: cardiovascular exam normal Pulmonary Assessment: pulmonary exam normal Dental Assessment: Misc Assessment: IV access: Peripheral line Anesthesia Plan: ASA 2 general, with a(n) intravenous induction Rhinoplasty GA/oralRAE Informed Consent: Anesthetic plan and risks discussed with patient. Plan discussed with NURSES' ASSOCIATION COUNSELOR. PAT Clinic Note documented in this encounter Plan of Treatment Not on file documented as of this encounter Visit Diagnoses Not on filedocumented in this encounter Administered Medications Inactive Administered Medications - up to 3 most recent administrations Medication Order MAR Action Action Date Dose Rate Site ceFAZolin (Ancef) 1 g in dextrose 5% 50 mL infusion PRN, Starting on Thu04/09/20 at 1200, Until Thu04/09/20 at 1406, Administer over 30 Minutes, Anesthesia Intra-op Given 04/09/2020 12:00 PM EDT 2 g dexamethasone (Decadron) injection PRN, Starting on Thu04/09/20 at 1156, Until Thu04/09/20 at 1406, Anesthesia Intra-op, Routine Given 04/09/2020 11:56 AM EDT 8 mg dexmedetomidine (PRECEDEX) injection PRN, Starting on Thu04/09/20 at 1157, Until Thu04/09/20 at 1406, Anesthesia Intra-op, Routine Given 04/09/2020 12:01 PM EDT 12 mcg Given 04/09/2020 11:57 AM EDT 8 mcg fentaNYL 50 mcg/mL multi-dose injection PRN, Starting on Thu04/09/20 at 1146, Until Thu04/09/20 at 1406, Anesthesia Intra-op, Routine Given 04/09/2020 12:29 PM EDT 75 mcg Given 04/09/2020 11:46 AM EDT 25 mcg glycopyrrolate (ROBINUL) multi-dose injection PRN, Starting on Thu04/09/20 at 1343, Until Thu04/09/20 at 1406, Anesthesia Intra-op, Routine Given 04/09/2020 1:43 PM EDT 0.4 mg ketamine (KETALAR) 10 mg/mL bolus injection (Anesthesia) PRN, Starting on Thu04/09/20 at 1203, Until Thu04/09/20 at 1406, Anesthesia Intra-op Given 04/09/2020 1:39 PM EDT 20 mg Given 04/09/2020 12:47 PM EDT 20 mg Given 04/09/2020 12:03 PM EDT 50 mg lactated ringers infusion 1,000 mL, at 100 mL/hr, Intravenous, CONTINUOUS, Starting on Thu04/09/20 at 1100, Until Thu04/09/20 at 1522, Day of Surgery (Day of Procedure) New Bag 04/09/2020 11:35 AM EDT lidocaine (PF) (XYLOCAINE) 100 mg/5 mL (2 %) injection PRN, Starting on Thu04/09/20 at 1145, Until Thu04/09/20 at 1406, Anesthesia Intra-op, Routine Given 04/09/2020 11:45 AM EDT 60 mg midazolam (PF) (VERSED) multi-dose injection PRN, Starting on Thu04/09/20 at 1140, Until Thu04/09/20 at 1406, Anesthesia Intra-op, Routine Given 04/09/2020 11:40 AM EDT 2 mg neostigmine (BLOXIVERZ) injection PRN, Starting on Thu04/09/20 at 1343, Until Thu04/09/20 at 1406, Anesthesia Intra-op, Routine Given 04/09/2020 1:43 PM EDT 3 mg ondansetron (ZOFRAN) injection PRN, Starting on Thu04/09/20 at 1156, Until Thu04/09/20 at 1406, Anesthesia Intra-op, Routine Given 04/09/2020 1:44 PM EDT 4 mg Given 04/09/2020 11:56 AM EDT 4 mg propofoL (Diprivan) 10 mg/mL bolus injection (Anesthesia) PRN, Starting on Thu04/09/20 at 1146, Until Thu04/09/20 at 1406, Anesthesia Intra-op Given 04/09/2020 11:46 AM EDT 200 mg propofoL (Diprivan) infusion CONTINUOUS PRN, Starting on Thu04/09/20 at 1149, Until Thu04/09/20 at 1406, Anesthesia Intra-op, Routine New Bag 04/09/2020 11:49 AM EDT 50 mcg/kg/min 24 mL/hr rocuronium (ZEMURON) multi-dose injection PRN, Starting on Thu04/09/20 at 1146, Until Thu04/09/20 at 1406, Anesthesia Intra-op, Routine Given 04/09/2020 11:48 AM EDT 40 mg Given 04/09/2020 11:46 AM EDT 10 mg documented in this encounter Care Teams Personal Banker Relationship Specialty Start Date End Date Diya Gifford MD [address] [place] [address] PCP - General Family Medicine 08/18/19 documented as of this encounter
--- OUTSIDE RECORDS SUMMARY | 2024-02-23 17:21 | XMS_ITS | Encounter Summary ---
Author Organization [facility] [place] [address] Care Team Providers Care Volunteer Recruiter Name Role Phone Diya Gifford MD Primary Care Provider Encounter Details Date Type Department Care Team (Late st Contact Info) Description 03/06/2020 Telephone [place] [phone] Kourtney Leos Social History Tobacco Use Types Packs/Day Years Used Date Smoking Tobacco: Never Smokeless Tobacco: Never Sex and Gender Information Value Date Recorded Sex Assigned at Not on file Gender Identity Not on file Sexual Orientation Not on file documented as of this encounter Miscellaneous Notes * Telephone Encounter - Kourtney Leos - 03/06/2020 8:18 AM EDT Called patient to schedule 3 month follow up appointment around 05/26/[address] Lion. Left voicemail for patient to call back to schedule. documented in this encounter Plan of Treatment Not on file documented as of this encounter Visit Diagnoses Not on filedocumented in this encounter Care Teams Volunteer Recruiter Relationship Specialty Start Date End Date Diya Gifford MD [address] [place] [address] PCP - General Family Medicine 08/18/19 documented as of this encounter
--- OUTSIDE RECORDS SUMMARY | 2024-02-23 17:21 | XMS_ITS | Encounter Summary ---
[place] [address] Care Team Providers Care Vegetable Picker Name Role Phone Diya Gifford MD Primary Care Provider [phone] Reason for Referral * Consultation (Urgent) - Duplicate Referral Specialty Diagnoses / Procedures Referred By Ar [facility] Referred To [facility] Diagnoses Other chronic pain Pain in left shoulder Cervicalgia Diya Gifford MD [address] [place] [address] [facility] [place] [address] Referral ID Status Reason Start Date Expiration Date Visits Requested Visits Authorized [id number] Duplicate Referral Consult, Test & Treat PCP Updated and/or Approved 07/16/2023 07/23/2024 6 6 Encounter Details Date Type Department Care Team (Late st Contact Info) Description 07/24/2023 Transcribe Orders eD Incoming Referrals [phone] Diya Gifford MD [address] [place] [address] Other chronic pain Social History Tobacco Use Types Packs/Day [...] Name Type Priority Associated Diagnoses Order Schedule Referral to Pain Management Outpatient Referral Urgent Other chronic pain Ordered: 07/24/2023 documented as of this encounter Visit Diagnoses Diagnosis Other chronic pain documented in this encounter Care Teams Vegetable Picker Relationship Specialty Start Date End Date Diya Gifford MD [address] [place] [address] PCP - General Family Medicine 08/18/19 documented as of this encounter
--- OUTSIDE RECORDS SUMMARY | 2024-02-23 17:21 | XMS_ITS | Encounter Summary ---
[place] [address] Care Team Providers Care Retail Sales Advisor Name Role Phone Diya Gifford MD Primary Care Provider [phone] Encounter Details Date Type Department Care Team (Latest Contact Info) Description 08/11/2023 Travel Social History Tobacco Use Types Packs/Day [...] on filedocumented in this encounter Care Teams Retail Sales Advisor Relationship Specialty Start Date End Date Diya Gifford MD [address] [place] [address] PCP - General Family Medicine 08/18/19 documented as of this encounter
--- OUTSIDE RECORDS SUMMARY | 2024-02-23 17:21 | XMS_ITS | Encounter Summary ---
Author Organization [facility] Address [facility] [place] [address] Care Team Providers Care Marketing Communication Manager Name Role Phone Diya Gifford MD Primary Care Provider [phone] Reason for Visit * Reason Comments Follow Up Surgery s/p rhinoplasty dos 04/09/20 Encounter Details Date Type Department Care Team (Late st Contact Info) Description 05/01/2020 2:30 PM EST Office Visit Plastic Surgery at [facility] [place] [address] Sandi Wong APRN [facility] [place] [address] Surgery follow-up Social History Tobacco Use Types [...] Progress Notes * Sandi Wong APRN - 05/01/2020 2:30 PM EST Plastic Surgery Follow-up Note Sandi Wong APRN Reason for visit: F/U status post procedure Date of surgery: 04/09/2020 Procedure(s): rhinoplasty for congenital nasal deformity (Ochoa) Complications: None reported HPI: Patient reports to clinic for follow up. She still feels her nose looks fat She overall is happy with her results. Continues to wear splinting tape. She wants to know if she can blow her nose yet. Examination: There were no vitals taken for this visit. Patient is alert, conversant, comfortable, ambulating Incision: CDI, healing well. Nares patent bilateral Nose appears symmetric and without deformity, with some edema No collection, no erythema, no evidence of cellulitis. Impression: Marilin Allen is a 45 y.o. female who was seen today for follow-up after the above procedure. Please see the operative note for details. She is doing well without complaints. Plan: Follow up: [address] Ochoa May blow nose in 1 week Continue to use tape to splint nose May use ice to help with swelling and edema Sleep with HOB elevated documented in this encounter Plan of Treatment Not on file documented as of this encounter Visit Diagnoses Diagnosis Surgery follow-up Follow-up examination, following unspecified surgery documented in this encounter Care Teams Marketing Communication Manager Relationship Specialty Start Date End Date Diya Gifford MD [address] [place] [id number] PCP - General Family Medicine 08/18/19 documented as of this encounter
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
--- OUTSIDE RECORDS SUMMARY | 2024-02-23 17:21 | XMS_ITS | Encounter Summary ---
Author Organization [facility] Address [facility] [place] [address] Care Team Providers Care [employer] Pilot Name Role Phone Diya Gifford MD Primary Care Provider [phone] Reason for Visit * Auth/Cert Specialty Diagnoses [...] Expiration Date Visits Re quested Visits Authorized [id number] 1 1 Encounter Details Date Type Department Care Team (Late st Contact Info) Description 04/09/2020 12:10 PM EDT - 04/09/2020 2:30 PM EDT Surgery Out[place] [id number] Mau Ochoa MD [facility] [place] [address] RHINOPLASTY FOR CONGENITAL NASAL DEFORMITY, COLUMELLAR LENGTHENING, TIP ONLY (WRVU 10.32) Social History Tobacco Use Types Packs/Day Years [...] Sign Reading Time Taken Comments Blood Pressure 113/59 04/09/2020 2:14 PM EDT Pulse 113 04/09/2020 2:14 PM EDT Temperature 35.9 ??C (96.6 ??F) 04/09/2020 1:58 PM ED T Respiratory Rate 18 04/09/2020 2:14 PM EDT Oxygen Saturation 99% 04/09/2020 2:14 PM EDT Inhaled Oxygen Concentration - - Weight - - Height 152.4 cm (5') 04/09/2020 10:49 AM EDT Body Mass Index - - documented in this encounter Discharge Instructions * Discharge Instructions* Muriel Marcus RN - 04/09/2020 11:41 AM EDT At [...] closest emergency room or call the hospital water plant pump operator at [phone] and ask for physician chemical production machine operator covering for your physician. Questions or problems after 5pm or on a weekend: Call the [facility] water plant pump operator at and ask for the physician chemical production machine operator covering for your doctor. * Patient Instructions* Jenny Rollins MD - 04/09/2020 7:53 AM EDT What to Expect.... The healing process varies with each person. Pain (short term and penitentiary) With any surgery there is some discomfort [...] about scheduling, please contact our administrative officesat [phone] For clinical questions, please call our nurses at [phone] Both offices are open Thursday thru Thursday 8a - 5p. With emergencies after hours, call the hospital water plant pump operator at [phone] and ask for the Plastic Surgery Resident chemical production machine operator. Future Appointments Date Time Provider Department Center 04/16/2020 9:30 AM Sandi Wong APRN [facility] PLAS [address] [place] [address] documented in this encounter Medications at Time [...] BY MOUTH TWICE A DAY 08/17/2019 Acidophilus-Pectin, [place] 25 million cell -100 mg Tablet TAKE [...] was questioned regarding travel outside of the [facility], fever, cough, SOB or other illness [...] again, temperature will be taken, patient and caregiver/tour driver will be given a mask to wear the entire time they are in the [facility] building. COVID test completed: scheduled 04/07 at [facility] @ 1015 Result of test: Action taken: * Yessenia Prather RN - 04/03/2020 4:53 PM EDT During this call the patient was questioned regarding travel outside of [facility], fever, cough, SOB or other illness [...] again, temperature will be taken, patient and caregiver/tour driver will be given a mask to [...] file Gets together: Not on file Attends adventist service: Not on file Active member of [...] Jenny Rollins MD Plastic Surgery Resident P# [id number] documented in this encounter Miscellaneous Notes * Op Note - Mau Ochoa MD - 04/09/2020 3:23 PM EDT [facility] Operative Note Patient Name: Marilin Allen : [id number] MR#: [id number] Case Date: 04/09/2020 Surgeon: Surgeon(s) and Role: [...] Operative Note Patient Name: Marilin Allen : [id number] MR#: [id number] Case Date: 04/09/2020 Surgeon: Surgeon(s) and Role: [...] Provider Department Center 04/16/2020 9:30 AM Sandi Wong, EMPLOYEE DEVELOPMENT SPECIALIST [facility] PL[facility] 4M [facility] documented in this encounter Plan of Treatment Not on file documented as of this encounter Procedures Procedure Name Priority Date/Time Associated Diagnosis Comments Rebeka Nose/Cleft Lip/Tip (23728) 04/09/2020 11:39 AM EDT Nasal septal perforation Congenital cleft lip nasal deformity RHINOPLASTY FOR CONGEN NASAL DEFORMITY, COLUMELLAR LENGTHEN, TIP ONLY Routine 04/09/2020 10:31 AM EDT Nasal septal perforation Congenital cleft lip nasal deformity documented in this encounter Visit Diagnoses Diagnosis Nasal septal perforation Other diseases of nasal cavity and sinuses 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 Nasal septal perforation Other diseases of nasal [...] Given 04/09/2020 11:01 AM EDT 1,000 mg bacitracin ointment ONCE PRN, Starting on Thu04/09/20 at 1216, Until Thu04/09/20 at 1726, Intra-Operative (Intra-Procedure) Given 04/09/2020 12:16 PM EDT 0.25 Tubes 19- Surgical Site balanced salt (BSS) irrigation solution ONCE PRN, Starting on Thu04/09/20 at 1216, Until Thu04/09/20 at 1726, Intra-Operative (Intra-Procedure), Routine Given 04/09/2020 12:16 PM EDT 1 Bottle 19- Surgical Site HYDROmorphone (DILAUDID) injection 0.2-0.4 mg 0.2-0.4 mg, [...] Given 04/09/2020 2:31 PM EDT 0.4 mg lidocaine-EPINEPHrine 1 %-1:100,000 injection ONCE PRN, Starting on Thu04/09/20 at 1206, Until Thu04/09/20 at 1726, Intra-Operative (Intra-Procedure), Routine Given 04/09/2020 12:06 PM EDT 3 mLs 19- Surgical Site oxymetazoline (AFRIN) 0.05 % nasal spray Administer over 3 Days, ONCE PRN, Starting on Thu04/09/20 at 1219, Until Thu04/09/20 at 1726, Intra-Operative (Intra-Procedure), Routine Given 04/09/2020 12:19 PM EDT 3 sprays scopolamine (TRANSDERM-SCOP) 1 mg over 3 days patch 1 dose, Starting on Thu04/09/20 at 1134, Until Thu04/09/20 at 1145, Muriel Marcus: cabinet override Patch Applied 04/09/2020 11:45 AM [...] at 1216, Until Thu04/09/20 at 1726, Intra-Operative (Intra-Procedure), Routine 1216 (Given [...] %-1:100,000 injection (CANCELED) ONCE PRN, Starting on 04/09/20 at 1206, Until 04/09/20 at 1726, Intra-Operative (Intra-Procedure), Routine 1206 (Given [...] Thu04/09/20 at 1145, Muriel Marcus.: cabinet override 1145 (Patch Applied - Provider: Muriel Marcus RN) documented in this encounter Care Teams [employer] Relationship Specialty Start Date End Date Diya Gifford MD [address] [place] [address] PCP - General Family Medicine 08/18/19 documented as of this encounter
--- OUTSIDE RECORDS SUMMARY | 2024-02-23 17:21 | XMS_ITS | Encounter Summary ---
[place] [address] Care Team Providers Care Sign Poster Name Role Phone Diya Gifford MD Primary Care Provider [phone] Encounter Details Date Type Department Care Team (Latest Contact Info) Description 04/23/2022 Travel Social History Tobacco Use Types Packs/Day [...] on filedocumented in this encounter Care Teams Sign Poster Relationship Specialty Start Date End Date Diya Gifford MD [address] [place] [address] PCP - General Family Medicine 08/18/19 documented as of this encounter
--- OUTSIDE RECORDS SUMMARY | 2024-02-23 17:21 | XMS_ITS ---
Author Organization Unknown Address [address] [place] [phone] Phone Care Team Providers Care Tectonophysicist Name Role Phone AMBREEN JORGENSEN Registered Nurse Unavailable IVAN White Attending Unavailable LINDA Ron [facility] Unavailable RADHIKA Dhillon Primary Unavailable UNLISTED PROVIDER - REQUESTED Xhandoff Un available Results TEST (URINE) QUALI TATIVE - Collect Date/Time: 08/04/2021 17:25 [facility] ID: [id number] [address] [place] [address], [address] LOINC: 2106-3 Test Value Unit Reference Range Code Code System Flag TEST NEGATIVE 2106-3 LOINC COMPREHENSIVE METABOLIC PANE L (CMP) - Collect Date/Time: 08/04/2021 17:25 [facility] ID: [id number] [address] [place] [address], [address] LOINC: 38279-3 Test Value Unit Reference Range Code Code System Flag GLUCOSE 80 mg/dL L=70 H=116 2345-7 LOINC BUN 10 mg/dL L=6 H=25 3094-0 LOINC CREATININE 0.92 mg/dL L=0.51 H=0.95 2160-0 LOINC SODIUM SERUM 140 mmol/L L=136 H=145 2951-2 LOINC POTASSIUM SERUM 4.2 mmol/L L=3.4 H=5.2 2823-3 LOINC CHLORIDE SERUM 104 mmol/L L=96 H=110 2075-0 LOINC CARBON DIOXIDE (CO2) 28 mmol/L L=22 H=34 2028-9 LOINC ANION GAP 7.9 mmol/L 92274-1 LOINC CALCIUM SERUM 8.3 mg/dL L=8.2 H=10.2 46975-8 LOINC BILIRUBIN TOTAL 0.5 mg/dL L=0.0 H=1.3 1975-2 LOINC ALK. PHOS. 86 U/L L=46 H=116 6768-6 LOINC SGOT (AST) 14 U/L L=15 H=37 1920-8 LOINC L SGPT (ALT) 23 U/L L=12 H=78 1742-6 LOINC TOTAL PROTEIN 6.9 gm/dL L=6.0 H=8.0 2885-2 LOINC ALBUMIN 3.4 gm/dL L=3.4 H=5.0 1751-7 LOINC AGE 46 years eGFR (non-Afr.Amer.) 65 mL/min 24507-2 LOINC eGFR (Afr-Tongan) 79 mL/min 30628-0 LOINC CBC W/ DIFFERENTIAL* - Colle ct Date/Time: 08/04/2021 17:25 [facility] ID: [id number] [address] [place] [address], [address] LOINC: 46932-0 Test Value Unit Reference Range Code Code System Flag WBC 15.60 th/cmm L=5.00 H=10.00 6690-2 LOINC H NEUT % 71.7 % L=40.0 H=80.0 LYMPH % 20.1 % L=10.0 H=50.0 MONO % 6.5 % L=2.0 H=12.0 16006-9 LOINC EOS % 0.9 % L=0.0 H=8.0 BASO % 0.3 % L=0.0 H=3.0 IG % 0.5 % L=0.0 H=1.1 2514-8 LOINC NRBC % 0.0 % L=0.0 H=0.0 88389-3 LOINC NEUT abs count 11.2 th/cmm L=1.6 H=8.4 751-8 LOINC H LYMPH abs count 3.1 th/cmm L=1.5 H=4.0 731-0 LOINC MONO abs count 1.0 th/cmm L=0.2 H=1.0 742-7 LOINC EOS abs count 0.1 th/cmm L=0.0 H=0.5 711-2 LOINC BASO abs count 0.0 th/cmm L=0.0 H=0.2 704-7 LOINC IG abs count 0.1 th/cmm L=0.0 H=0.1 19238-4 LOINC NRBC abs count 0.0 mil/cmm L=0.0 H=0.0 10336-8 LOINC RBC 4.82 mil/cmm L=3.90 H=5.40 789-8 LOINC HEMOGLOBIN 14.8 gm/dL L=12.0 H=16.0 718-7 LOINC HEMATOCRIT 46 % L=37 H=47 4544-3 LOINC MCV 95 fL L=82 H=92 787-2 LOINC H MCH 30.7 pg L=27.0 H=31.0 785-6 LOINC MCHC 32.4 % L=32.0 H=36.0 786-4 LOINC RDW-SD 46.6 fL L=39.0 H=49.0 788-0 LOINC PLATELET COUNT 314 th/cmm L=150 H=450 777-3 LOINC URINALYSIS WITH REFLEX CULT IF POSITIVE* - Collect Date/Time: 08/04/2021 17:25 [facility] ID: [id number] [address] [place], [place], [address] LOINC: 23486-8 Test Value Unit Reference Range Code Code System Flag COLLECTION MODE: CLEAN CATCH Color YELLOW yellow 5778-6 LOINC Appearance HAZY clear 5767-9 LOINC Glucose urine NEGATIVE negative mg/dl 05998-7 LOINC Bilirubin NEGATIVE negative 5770-3 LOINC Ketones NEGATIVE negative mg/dl 2514-8 LOINC Spec gravity 1.020 1.003 - 1.030 5811-5 LOINC pH urine 6.5 5.0 - 7.0 2756-5 LOINC Protein NEGATIVE negative mg/dl 68179-1 LOINC Urobilinogen 0.2 <or= 1 EU/dl 74493-5 LOINC Nitrite. NEGATIVE negative 5802-4 LOINC Blood LARGE negative 5794-3 LOINC A Leukocytes. TRACE negative A MICROSCOPIC INDICATED WBCs. 5-10 0-5 / hpf 73978-4 LOINC RBCs 10-25 0-5 / hpf 82301-0 LOINC Epith cells 10-25 0-5 / hpf 43529-6 LOINC Cell types squamous Crystals none none Bacteria minimal none Mucus present none 8247-9 LOINC Casts none none /lpf 23619-0 LOINC Other 86954-[address] ABD + PELVIS WO CONTRAST - Completed: 08/04/2021 15:24 LOINC: Radiation optimization: All CT scans at this facility use at least one of these dose optimization techniques: automated exposure control; mA and/or kV adjustment per patient size (includes targeted exams where dose is matched to clinical indication); or iterative reconstruction. CT SCAN ABDOMEN AND PELVIS WITHOUT IV CONTRAST Visualized lung bases are clear. No pleural effusions. There is no ascites. On this non-infused study there are no significant focal findings evident in the liver, gallbladder, pancreas, spleen, and adrenals. Abdominal aorta is not enlarged and there is no paraaortic adenopathy. No evidence of significant anterior abdominal wall hernia nor inguinal hernia. No bowel obstruction. Kidneys: Bilateral nephrolithiasis. There are multiple calculi in each kidney with average size 3-4 mm. No hydronephrosis evident on the left side. However, on the right side there is a culprit 4 mm calculus at the right ureterovesical junction with dilatation of the right collecting system above this level. Maximum diameter of the ipsilateral right ureter is 8 mm. No perinephric streaking. No calculi seen within the lumen of the urinary bladder. The bladder is not distended. Elsewhere in the pelvis appendix is not seen but there is no evidence of appendicitis nor diverticulitis. The uterus and ovaries appear unremarkable. No free fluid. No evidence of acute inflammatory process in either iliac fossa. Osseous: No significant osseous lesions. No fractures. IMPRESSION: 1. There is a 4 mm calculus in distal right ureter at the level of the ureterovesical junction with dilatation of the right ureter above this level. No other calculi seen in the right ureter. However, there is bilateral nephrolithiasis with multiple calculi in each kidney, these measuring 3-4 mm in size. Dictated by: DUTCH MATHIS MD Transcribed by: [facility] [place] 08/05/21/10:33 D Wednesday, August 04, 2021 4:03:50 PM [id number] Electronically Reviewed and Signed By: ASHLYN MATHIS MD 08/06/21 07:40 Copy for: 185 HEALTH INFORMATION MGMT DISCHARGED Social History Type Status Start Date End Date Code Code Syst em Smoking History Never smoker (Never Smoked) 934130544 SNOMED CT Sex Female Vital Signs Vital Sign Value Unit Tryon Value Tryon Unit Date/Time Recent/Initial? Code Code System Body Mass Index 35.15 kg/m2 08/04/2021 14:11 Initial 71031 -5 LOINC Systolic Blood Pressure 147 mm[Hg] 08/04/2021 14:11 Initial 8480- 6 LOINC Diastolic Blood Pressure 112 mm[Hg] 08/04/2021 14:11 Initial 8462- 4 LOINC Body Surface Area 1.86 m2 08/04/2021 14:11 Initial 3140- 1 LOINC Height 152.400 0 cm 60.00 in 08/04/2021 14:11 Initial 8302- 2 LOINC O2 Saturation 100 % 2021 14:11 Initial 99756 -5 LOINC Pulse 100.0 /min 08/04/2021 14:11 Initial 8867- 4 LOINC Respiration 19 /min 08/04/19 14:11 Initial 9279- 1 LOINC Temperature 36.7 Thi 98.1 F 08/04/19 14:11 Initial 8310- 5 LOINC Weight 81.65 kg 180.00 lbs 08/04/2021 14:11 Initial 55447 -7 [facility]ations Medication Start Date End Date Route Frequency Dose Code Code System Medication Instructions Home Meds Amitriptyline HCl 100MG Oral Tablet 07/19/2021 Unknown ORAL BEDTIME 100 MILLIGRAMS 494708 RxNorm TAKE 100 MILLIGRAMS ORAL BEDTIME Cyclobenzaprine 10MG Oral Tablet 07/19/2021 Unknown ORAL NEEDED THREE TIMES A DAY 10 MILLIGRAMS 876426 RxNorm TAKE 10 MILLIGRAMS ORAL NEEDED THREE TIMES A DAY Doxycycline 100MG Oral Capsule 07/19/2021 Unknown ORAL BEDTIME 100 MILLIGRAMS 4430088 RxNorm TAKE 100 MILLIGRAMS ORAL BEDTIME Gabapentin 800MG Oral Tablet 07/19/2021 Unknown ORAL BEDTIME 800 MILLIGRAMS 884098 RxNorm TAKE 800 MILLIGRAMS ORAL BEDTIME Loratadine 10MG Oral Tablet 07/19/2021 Unknown ORAL NEEDED DAILY 10 MILLIGRAMS 148046 RxNorm TAKE 10 MILLIGRAMS ORAL NEEDED DAILY Metoprolol Succinate 100MG Oral Tablet, Extended Release 07/19/2021 Unknown ORAL BEDTIME 100 MILLIGRAMS 842065 RxNorm TAKE 100 MILLIGRAMS ORAL BEDTIME Omeprazole 40MG Oral Capsule, Delayed Release 07/19/2021 Unknown ORAL BEDTIME 40 MILLIGRAMS 617738 RxNorm TAKE 40 MILLIGRAMS ORAL BEDTIME Percocet 5MG-325MG Oral Tablet 07/19/2021 Unknown ORAL NEEDED THREE TIMES A DAY 1 unit(s) 9791564 RxNorm TAKE 1 EACH ORAL NEEDED THREE TIMES A DAY SF 5000 Plus 1.1% Dental Cream 07/19/2021 Unknown DENTAL NEEDED 1 unit(s) 452480 RxNorm 1 EACH DENTAL NEEDED Venlafaxine HCl 150MG Oral Capsule, Extended Release 07/19/2021 Unknown ORAL BEDTIME 150 MILLIGRAMS 405367 RxNorm TAKE 150 MILLIGRAMS ORAL BEDTIME Venlafaxine HCl 37.5MG Oral Tablet 07/19/2021 Unknown ORAL BEDTIME 37.5 MILLIGRAMS 269055 RxNorm TAKE 37.5 MILLIGRAMS ORAL BEDTIME Voltaren Gel 1% Topical application Gel/Jelly 07/19/2021 Unknown TOPICA L APPLIC ATION TWICE A DAY 1 unit(s) 584535 RxNorm 1 EACH TOPICAL APPLICATION TWICE A DAY Zolpidem Tartrate 12.5MG Oral Tablet, Extended Release 07/19/2021 Unknown ORAL NEEDED AT BEDTIME 12.5 MILLIGRAMS 830693 RxNorm TAKE 12.5 MILLIGRAMS ORAL NEEDED AT BEDTIME diphenhydrAMINE HCl 25MG Oral Capsule 07/19/2021 Unknown ORAL DAILY 25 MILLIGRAMS 9368809 RxNorm TAKE 25 MILLIGRAMS ORAL DAILY hydrOXYzine HCl 25MG Oral Tablet 07/19/2021 Unknown ORAL TWICE A DAY 75 MILLIGRAMS 839093 RxNorm TAKE 75 MILLIGRAMS ORAL TWICE A DAY hydroCHLOROthia zide 12.5MG Oral Tablet 07/19/2021 Unknown ORAL BEDTIME 12.5 MILLIGRAMS 207143 RxNorm TAKE 12.5 MILLIGRAMS ORAL BEDTIME Percocet 5MG-325MG Oral Tablet 09/18/2022 Unknown ORAL NEEDED EVERY 4 HOURS 0232998 RxNorm TAKE 1-2 TABLET ORAL NEEDED EVERY 4 HOURS Flomax 0.4MG Oral Capsule 09/18/2022 Unknown ORAL DAILY 1 CAPSULE 556225 RxNorm TAKE 1 CAPSULE ORAL DAILY UNTIL STONE PASSES Ibuprofen 200MG Oral Tablet 09/18/2022 Unknown ORAL EVERY 6 HOURS 3 TABLET 419753 RxNorm TAKE 3 TABLET ORAL EVERY 6 [...] Date Status Code Code System HYPERTENSION active 95291305 SNOMED- CT PTSD active 74325667 SNOMED-CT SYNCOPE active 000627015 SNOMED-CT CHEST PAIN active 65644563 SNOMED-CT WEAKNESS active 63308402 SNOMED-CT URETEROLITHIASIS active 66311183 SNO MED-CT MIGRAINE 07/18/2021 resolved 37641399 SNOMED-CT CARPAL TUNNEL 07/18/2021 resolved 97410098 SNOME D-CT CHRONIC PAIN 07/18/2021 resolved 11519771 SNOMED -CT TONSILLITIS 07/18/2021 resolved 11045048 SNOMED- CT TMJ SYNDROME 07/18/2021 resolved 173279578 SNOMED -CT FIBROMYALGIA 07/18/2021 resolved 763106703 SNOMED -CT 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 81627108 SNOMED -CT 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 38830277 SNOMED-CT ANXIETY 07/18/2021 resolved 90150844 SNOMED-CT DEPRESSION 07/18/2021 resolved 53468279 SNOMED-C T ACID REFLUX 07/18/2021 resolved 322398346 SNOMED- CT CHRONIC PAIN 07/18/2021 resolved 90007857 SNOMED -CT HYPERTENSION 07/18/2021 resolved 48838230 SNOMED -CT Allergies and Adverse Reactions Allergy Substance Reaction Severity Start Date Concern Status Code Code System SULFA (sulfonamide) Vomiting (SNOMED-CT: 639585390) Active 94414558 SNOMED-CT PENICILLIN G Hives (SNOMED-CT: 598814621) Moderate Active 7980 RxNorm SHELLFISH Anaphylaxis (SNOMED-CT: 11296502) Active 787439413 SNOMED-CT FISH PROTEIN Anaphylaxis (SNOMED-CT: 03175787) Active 16146161 SNOMED-CT TOPAMAX Active 258274 RxNorm Plan of Treatment MM SCREEN BILAT 07/02/2022 PRE-OP COVID-19 TESTING 08/13/2021 MM SCREEN BILAT 05/28/2021 Encounters Encounter Diagnosis Start Date Code Code Sys tem Ureteric stone 08/04/2021 92675842 SNOMED-CT Personal Care Team Section Performer Name Performer Role Active Date Inactive Colin epstein
--- OUTSIDE RECORDS SUMMARY | 2024-02-23 17:21 | XMS_ITS | Encounter Summary ---
Author Organization [facility] Address [facility] [place] [address] Care Team Providers Care Energy Derivatives Trader Name Role Phone Diya Gifford MD Primary Care Provider [phone] Reason for Visit * Consultation (Routine) - Closed Specialty Diagnoses / Procedures Referred By Ar salinas Referred To Contact Otolaryngology Diagnoses Hx of cleft palate Oronasal fistula Nasal septal perforation Mau Ochoa MD [facility] [place] [address] Rebekah Lion MD [facility] [place] [address] Referral ID Status Reason Start Date Expiration Date V isits Requested Visits Authorized [id number] Closed Consult, Test & Treat 01/10/2020 01/09/2021 1 1 Encounter Details Date Type Department Care Team (Late st Contact Info) Description 02/24/2020 11:00 AM EDT Office Visit Otolaryngology at [place] [phone] Rebekah Lion MD [facility] [address] Nasal septal perforation Social History Tobacco Use Types Packs/Day Years Used Date Smoking Tobacco: Never Smokeless Tobacco: Never Sex and Gender Information Value Date Recorded Sex Assigned at Not on file Gender Identity Not on file Sexual Orientation Not on file documented as of this encounter Last Filed Vital Signs Vital Sign Reading Time Taken Comments Blood Pressure - - Pulse - - Temperature 36.7 ??C (98.1 ??F) 02/24/2020 10:43 AM E DT Respiratory Rate - - Oxygen Saturation - - Inhaled Oxygen Concentration - - Weight 91.2 kg (201 lb) 02/24/2020 10:43 AM EDT Height 152.4 cm (5') 02/24/2020 10:43 AM EDT Body Mass Index 39.26 02/24/2020 10:43 AM EDT documented in this encounter Progress Notes * Rebekah Lion MD - 02/24/2020 11:00 AM EDT [facility] Otolaryngology - Head and Neck Surgery Rebekah Lion MD 02/24/20 11:06 AM [place] [phone] Office Patient Name: Marilin Allen Date of : 1975 PCP: Diya Gifford MD Chief Complaint/ History of Present Illness: Marilin Allen is a 45 y.o. year old female who was seen today at the request of Mau Ochoa in consultation for septal perforation and cleft palate. Patient has a history of cleft lip and palate, has had several procedures throughout her life for this. She was most recently evaluated by Dr. Ochoafor revision surgery, who noticed a perforation in her septum. Patient states her biggest concerns are both a difficulty breathing through the right side of her nasal cavity. She also notes occasional buildup of dried mucus over the right side of her nasal cavity that will sometimes drain to the back of her nose and cause irritation as well. She has tried steroid nasal sprays in the past however this causes just more irritation. She also states that she has had the perforation repaired previously by another surgeon. Unclear if this was once larger than it is currently. No recurrent episodes of epistaxis. No fevers or chills. No sinus pressure or pain. Otherwise doing okay. 10 point Review of Systems was normal except for pertinent positives and negatives included in the History of Present Illness. Past Medical and Surgical History Patient Active Problem List Diagnosis Code ??? Hx of cleft palate Z87.730 ??? 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 Chronic pain disorder G89.4 ??? Dysfunction of right eustachian tube H69.81 ??? Insomnia related to another mental disorder F51.05 ??? Posttraumatic stress disorder F43.10 ??? 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 TMJ syndrome M26.629 ??? Unilateral complete cleft palate with cleft lip Q37.5 ??? Nasal septal perforation J34.89 Current Outpatient Medications on File Prior to [...] BY MOUTH TWICE A DAY ??? Acidophilus-Pectin, [place] 25 million cell -100 mg Tablet TAKE [...] 1 % Gel Apply topically as needed. No current facility-administered medications on file prior to visit. Allergies: Unclassified drug, Erythromycin, Penicillins, Shellfish containing products, Sulfa (sulfonamide antibiotics), and Topiramate Surgical History: Past Surgical History: Procedure Laterality Date ??? CARPAL TUNNEL RELEASE Left 02/2019 ??? CLEFT PALATE REPAIR ??? ULNAR TUNNEL RELEASE Left 02/2019 Family and Social History Family History: No family history on file. Social History: Lives [place] [facility] [id number] Social History Socioeconomic History ??? Marital status: [...] Substance and Sexual Activity ??? Alcohol use: Not on file ??? Drug use: Not on file ??? Sexual activity: Not on file Lifestyle ??? Physical activity Days per week: Not on file Minutes per session: Not on file ??? Stress: Not on file Relationships ??? Social connections Talks on phone: Not on file Gets together: Not on file Attends taoism service: Not on file Active member of [...] Social History Narrative ??? Not on file Physical Exam Temperature: 36.7 ??C (98.1 ??F) Heart Rate: Blood Pressure: Respiratory Rate: SpO2: General: Age appropriate, healthy appearing, well-groomed, independently mobile. Communicates easily, speech clear, voice is strong. Awake, alert, and oriented to person, place and time. Affect appropriate. Head and Face: Head is normocephalic, atraumatic. Facial resting tone symmetric. Eyes: Conjugate gaze, ocular motility intact bilaterally. PERRL. Neurologic: Cranial Nerves II-XII grossly intact and symmetric. Ears: External ear and ear canal are without deformity. Hearing is grossly normal. Nose: External nose is notable for nasal ala narrowing on the right side. Columella is deviated to the right as well. On anterior anoscopy there is a anterior perforation measuring about 5 x 12 mm insize. The remaining portion of the septum does deviate to the right. There is good tip support. Oral: There are no visible or palpable buccal, gingival, lingual, or palatal lesions. The floor of mouth is soft and flat. Dentition is in good repair. Oropharynx: Symmetric without tonsillar pathology. No other concerning lesions or masses Larynx: No stridor, no hoarseness. External laryngeal structures normal to palpation. Face and sinuses are non tender. Salivary glands are soft, non tender, without palpable masses. No temporomandibular joint grinding or locking. Neck: Symmetric. No scars, palpable masses, or crepitus. Midline trachea. Thyroid normal in size, non tender, no palpable mass. Lymphatic: no palpable cervical lymphadenopathy. Pulmonary: Breathing comfortably. Symmetric chest expansion without use of accessory muscles or retraction. Skin: Good skin turgor, no pallor, no icterus. Extremities: No gross deformities, no peripheral edema. Labs and Imaging Significant lab values are as follows: I reviewed the following imaging studies: Procedures Nasal endoscopy was performed. 0 degrees scope was used to examine the left and right nasal cavities. Again the septal perforation was noted and measured about 5 x 12 mm in size. The remaining portion of the septum is slightly deviated to the right as well. Floor of the nose is intact. Nasopharynx was otherwise unremarkable. ASSESSMENT & RECOMMENDATIONS Marilin Allen is a 45 y.o. female with cleft lip and palate and a septal perforation likely from prior surgical procedures. Recommendations: 1. We discussed her symptoms in relation to the septal perforation. Certainly 1 of her goals is to be able to breathe through the right side of her nasal cavity better and this will be addressed by Dr. Ochoa. In regards to the perforation though we did discuss the risk and surgical repair as she hashad this surgically repaired previously and still remains with the perforation. As her symptoms are most likely due to overall dryness we discussed using a saline gel to keep the area humidified for now. If this fails though a Silastic septal button is another option. She will meet with Dr. Ochoa today to discuss their surgical plans for the overall appearance of her nose, and we can plan for a septal button placement in the near future as well. Rebekah Lion MD Otolaryngology - Head and Neck Surgery 02/24/20 11:06 AM documented in this encounter Plan of Treatment Scheduled Referrals Name Type Priority Associated Diagnoses Orde r Schedule Referral to ENT Outpatient Referral Routine Hx of cleft palate Oronasal fistula Nasal septal perforation Ordered: 01/10/2020 documented as of this encounter Visit Diagnoses Diagnosis Nasal septal perforation Other diseases of nasal cavity and sinuses documented in this encounter Care Teams Energy Derivatives Trader Relationship Specialty Start Date End Date Diya Gifford MD [address] [address] PCP - General Family Medicine 08/18/19 documented as of this encounter
--- OUTSIDE RECORDS SUMMARY | 2024-02-23 17:21 | XMS_ITS | Encounter Summary ---
Author Organization [facility] Address [facility] Jenna aguila [place] [id number] Care Team Providers Care Community Health Navigator Name Role Phone Diya Gifford MD Primary Care Provider [phone] Reason for Visit * Reason Comments Skin Lesion * Consultation (Urgent) - Closed Specialty Diagnoses / Procedures Referred By Ar salinas Referred To Contact Dermatology Diagnoses Disorder of the skin and subcutaneous tissue, unspecified skin lesions on face, getting bigger Diya Gifford MD [address] [place] [address] [facility] Dermatology [address] [place] [address] Referral ID Status Reason Start Date Expiration Date V isits Requested Visits Authorized [id number] Closed Consult, Test & Treat Connection Center PCP Updated and/or Approved 12/28/2020 06/30/2021 6 6 Encounter Details Date Type Department Care Team (Late st Contact Info) Description 01/08/2021 4:00 PM EDT Office Visit Dermatology at [facility] [address] [place] [address] Luciano Parson MD [address] [facility] [place] [address] Neoplasm of uncertain behavior of skin of face; Neoplasm of uncertain behavior of skin of nose Social History Tobacco Use Types Packs/Day Years [...] Progress Notes * Luciano Parson MD - 01/08/2021 4:00 PM EDT Images from the original note were not included. 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 and here for the following: ??? Tender lesions on the left preauricular cheek, left chin and left nasal sidewall since mid to late 2019. Mild to moderate tenderness. No bleeding. Growing in size. Never been treated or biopsied. Medications: Reviewed in eD-H Allergies: Reviewed in eD-H Skin Examination Standby: So Finley CMA Well developed, well-nourished in no apparent distress, alert and oriented to time, person, place and situation. Focused examination of the skin of the face significant for the following: ??? 3 mm red papule with slight verrucous features on dermoscopy on the left nasal sidewall ??? Two verrucous 5-6 mm papules on the left sideburn and left chin Images Photo(s) taken by Cindy Parson MD. with patient's verbal permission for use for clinical and education purposes. Assessment/Plan Neoplasm of uncertain behavior, left nasal sidewall DDx: ISK over SCC or angioma Discussed differential diagnosis and management options including empiric therapy with cryotherapy or shave biopsy. Answered all questions. Patient elects cryotherapy trial ?? Total 1 treated with cryotherapy, 1 cycle at 5 seconds, after verbally discussing the disease and treatment options, cryotherapy method, expected results/course and potential adverse effects, including crusting, persistent erythema, scar, blister, pain, dyspigmentation, and recurrence. Patient verbally agreed. Patient tolerated well with no complications. Wound care instructions provided. If no resolution at next appointment in January 2021 or if scaling recurs after initial resolution, return to clinic for reevaluation; recommend shave biopsy. Neoplasms of uncertain behavior, left sideburn and chin. DDx: Wart versus ISK over SCC. Discussed differential diagnosis and management options including empiric therapy with cryotherapy or shave biopsy. Answered all questions. Patient elects cryotherapy trial. ?? Total 2 treated with cryotherapy, 1 cycle at 5 seconds for each, after verbally discussing the disease and treatment options, cryotherapy method, expected results/course and potential adverse effects, including crusting, persistent erythema, scar, blister, pain, dyspigmentation, and recurrence. P atient verbally agreed. Patient tolerated well with no complications. Wound care instructions provided. If no resolution at next appointment in January 2021 or if scaling recurs after initial resolution, return to clinic for reevaluation; recommend shave biopsy. Follow-up: Next appt Dr. Parson: 02/19/2021 or sooner as needed for worsening pain, bleeding or increased size. Scribe attestation: So Finley CMA has performed the documentation for this encounter in the presence of and acting as a scribe for Luciano Parson MD FAAD. I performed the above scribed service and agree with the accuracy of the documentation in this encounter. Reviewed and signed by: Luciano Parson MD FAAD Dermatology [facility] documented in this encounter Plan of Treatment Not on file documented as of this encounter Visit Diagnoses Diagnosis Neoplasm of uncertain behavior of skin of face Neoplasm of uncertain behavior of skin Neoplasm of uncertain behavior of skin of nose Neoplasm of uncertain behavior of skin documented in this encounter Care Teams Community Health Navigator Relationship Specialty Start Date End Date Diya Gifford MD [address] [place] [address] PCP - General Family Medicine 08/18/19 documented as of this encounter
--- OUTSIDE RECORDS SUMMARY | 2024-02-23 17:21 | XMS_ITS | Encounter Summary ---
Author Organization [facility] [place] [address] Care Team Providers Care Licensed Prosthetist/Orthotist Name Role Phone Diya Gifford MD Primary Care Provider Reason for Visit * Reason Onset Date Comments TeleHealth 10/14/2019 Encounter Details Date Type Department Care Team (Late st Contact Info) Description 10/14/2019 Telephone Plastic Surgery at [facility] [place] [id number] Laly Dey LNA TeleHealth Social History Tobacco Use Types Packs/Day Years Used Date Smoking Tobacco: Never Smokeless Tobacco: Never Sex and Gender Information Value Date Recorded Sex Assigned at Not on file Gender Identity Not on file Sexual Orientation Not on file documented as of this encounter Miscellaneous Notes * Telephone Encounter - Laly Dey LNA - 10/14/2019 2:58 PM EDT Called patient to review intake questions, med/allergies for upcoming tele health appointment with on 10/18/19. documented in this encounter Plan of Treatment Not on file documented as of this encounter Visit Diagnoses Not on filedocumented in this encounter Care Teams Licensed Prosthetist/Orthotist Relationship Specialty Start Date End Date Diya Gifford MD [address] [place] [address] PCP - General Family Medicine 08/18/19 documented as of this encounter
--- OUTSIDE RECORDS SUMMARY | 2024-02-23 17:21 | XMS_ITS | Encounter Summary ---
Author Organization [facility] Address [facility] [address] Care Team Providers Care Equipment Planner Name Role Phone Diya Gifford MD Primary Care Provider [phone] Reason for Visit * Reason Comments Follow-up cleft palate Encounter Details Date Type Department Care Team (Late st Contact Info) Description 02/24/2020 11:45 AM EDT Office [place] [address] Mau Ochoa MD [facility] [place] [address] Congenital cleft lip nasal deformity (Primary Dx); Nasal septal perforation Social History Tobacco Use Types Packs/Day Years Used Date Smoking Tobacco: Never Smokeless Tobacco: Never Sex and Gender Information Value Date Recorded Sex Assigned at Not on file Gender Identity Not on file Sexual Orientation Not on file documented as of this encounter Patient Instructions * Patient Instructions* Brandee Mason RN - 02/24/2020 11:45 AM EDT Preoperative Instructions You have been scheduled to have plastic surgery. The instructions below are specific to your procedure. You were also given a Perioperative Care Program brochure. This booklet provides a general overview for all procedures. Please review this brochure to help you prepare. If you are a smoker, we ask that you stop at least 2 months prior to your surgical date and remain nicotine free for at least a month after surgery. Smoking can impair healing and increase your chance of infection. Two Weeks prior to Surgery Do not take any Aspirin or aspirin containing products for the 2 weeks leading up to surgery. You may resume taking 48 hours after surgery. Do not take medications containing Ibuprofen. Do not take any anti-steroidal's such as Advil, Aleve, Celebrex, Daypro, Indocin, Midol, Motrin, Naproxen, Nuprinand Toradol. These medications increase your risk of bleeding. You may resume taking any of these medications 48 hours after surgery. Stop Vitamin E, Garlic supplements, Ginseng, Fish Oil tablets, Ginkgo and Ann's Wort and any other herbals. You may resume taking 48 hours after surgery. If you need medication for pain, you may take Tylenol or extra strength Tylenol during this two week period. One Week prior to Surgery Do not take any Aspirin or aspirin containing products for the 1 week leading up to surgery. You may resume taking 48 hours after surgery. Please call if you feel ill, have cold or fever, have a rash or breaks in the skin near your surgical site. Stay hydrated. Avoid alcohol and recreational drugs The Same Day Surgery Team will call you the business day before your surgery to give you instructions specific to your procedure and your surgical time. Generally, you will be asked not to eat any solids after midnight. You are allowed clear liquids (water, tasha efra, apple juice, black coffee andplain tea) until 2 hours prior to your surgery. Day of Surgery You will need a lokie driver. If you do not have a lokie driver, your surgery will be canceled. DO NOT wear any jewelry, makeup or artificial nails. Do wear comfortable, loose fitting clothes. Anesthesia will meet with you the morning of surgery. They will perform an assessment and review your history with you. Contact Information: During regular office hours (Thursday- Thursday, non-holiday 8:00 am- 5:00 pm) For an appointment or insurance questions For questions pertaining to your surgical date [phone] For nursing related questions [phone] On weekends, holidays or after office hours: Call and ask the photostat operator helper to page the Plastic Surgery Resident palliative care nurse practitioner. documented in this encounter Progress Notes * Oliva Barney - 02/24/2020 11:45 AM EDT Craniofacial Team: Plastic Surgery Follow-up Mau Ochoa MD PCP: Diya Gifford MD CC: Cleft Palate HPI: Marilin Allen was seen today regarding hx unilateral complete cleft lip and palate. Prior to her visit today she saw Jesusita Lion MD in ENT for a nasal endoscopy to evaluate nasal septal perforation. She reports that Dr. Lion found a small hole which she could put a button in. Pt states she is very unhappy with how her prior surgery turned out and she is very self conscious. She continues to experience difficulty breathing due to the narrowing of the right nostril and reports persistent nasal discharge. 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 x EXAM: There were no vitals taken for this visit. Cleft lip repair scar well healed Palate mobile Healed right unilateral cleft lip Significant septal perforation Vestibular stenosis EXAMINATION: CT FACE WO CONTRAST ?? CLINICAL HISTORY: Histroy of cleft lip and palate, evaluate for facial reconstruction and oronasal fistual repair ?? TECHNIQUE: CT face performed without intravenous contrast administration. ?? COMPARISON: CT head 02/28/2016 ?? FINDINGS: Stable right-sided cleft palate deformity which extends to the right side of the maxilla where there is a prosthetic tooth. The alveolar ridge at this location is fused. There is only partial osseous fusion hardware palate in its midportion. The left side of the hard palate appears to be normal. ?? Small amount of mucosal thickening in the inferior aspect of the left maxillary sinus. The remainder of the paranasal sinuses are clear. No abnormality of the orbits identified. ? IMPRESSION Stable right-sided cleft palate which does show a small area of osseous fusion in the midportion of the palate. ?? Thank you for letting us participate in the care of this patient. For questions regarding this report, please contact the number below. Impression: Marilin Allen was seen today regarding hx [...] this procedure is much different than surgical intervention for the nasal septal perforation. I recommend initially proceeding with the button to determine if this will resolve some of the nasal discharge. She is extremely unhappy with the appearance of her nose and would like to proceed with a cleft rhinoplasty to improve the structure and aesthetics of her nose. We had a comprehensive discussion regarding the indication and surgical approach. All questions were answered in detail and to her satisfaction. I reviewed perioperative expectations to include physical restrictions, pain management, and need for compression garments. Photos were obtained at today's visit with informed, signed consent. Surgical Grid: Surgeon: Don OSC Duration: 2 hours Timeframe: Elective Coordinated with: n/a Procedure: Cleft Rhinoplasty, possible cartilage graft in the ear CPT: 51604 Possible Codes-Cleft rhinoplasty Rhinoplasty 2nd to cleft lip: 40211 with septum or bone: 17730 Septoplasty: 91412 Surgical site: Nose Side: kylie Anesthesia: General Follow up: 7-10 days ISABELLA when JS in clinic THHF: No in person with ISABELLA PAT: H&P DOS/H&P with PCP Plan: 1. I will confer with Dr. Lion to discuss how to proceed 2. Schedule surgery. IOliva, have performed the documention for this encounter in the presence of and acting as a scribe for MAU OCHOA MD. I performed the services which were documented by the scribe, and I agree with the accuracy of the documentation in this encounter. MAU OCHOA MD. documented in this encounter Plan of Treatment Not on file documented as of this encounter Visit Diagnoses Diagnosis Congenital cleft lip nasal deformity- Primary Other congenital anomaly of nose Nasal septal perforation Other diseases of nasal cavity and sinuses documented in this encounter Care Teams Equipment Planner Relationship Specialty Start Date End Date Diya Gifford MD [address] [place] [address] PCP - General Family Medicine 08/18/19 documented as of this encounter
--- OUTSIDE RECORDS SUMMARY | 2024-02-23 17:21 | XMS_ITS | Encounter Summary ---
Author Organization [facility] [place] [address] Care Team Providers Care Strategic Buyer Name Role Phone Diya Gifford MD Primary Care Provider Encounter Details Date Type Department Care Team (Late st Contact Info) Description 06/15/2020 9:00 AM EST Office Visit [place] [address] Rebekah Lion MD [facility] [place] [address] Nasal septal perforation Social History Tobacco Use [...] - - Weight 91.2 kg (201 lb) 06/15/2020 8:48 AM EST Height 152.4 cm (5') 06/15/2020 8:48 AM EST Body Mass Index 39.26 06/15/2020 8:48 AM EST documented in this encounter Progress Notes * Rebekah Lion MD - 06/15/2020 9:00 AM EST [facility] Otolaryngology - Head and Neck Surgery Rebekah Lion MD 06/15/20 9:28 AM [place], [place] [address] Office Patient Name: Marilin Allen Date of : 1975 PCP: Diya Gifford MD Chief Complaint/History of Present Illness: Marilin Allen is a 45 y.o. year old seen in follow up. She has a history of cleft lip and palate, has had several procedures including recent rhinoplasty with Dr. Ochoa to correct areas over the nasal tip. She has had a known septal perforation and has had surgery to correct this previously. She ishere for possible septal button placement or to discuss repair. Still having some crusting in the nose. She has used saline sprays and gels in the past without improvement. No fevers or chills. Otherwise doing ok. 10 point Review of Systems was normal [...] lip Q37.5 ??? Nasal septal perforation J34.89 ??? Congenital cleft lip nasal deformity Q30.8, Q36.9 Current Outpatient Medications on File Prior to [...] BY MOUTH TWICE A DAY ??? Acidophilus-Pectin, Rawlins 25 million cell -100 mg Tablet TAKE [...] prior to visit. Allergies: Unclassified drug, Erythromycin, Shellfish containing products, Sulfa (sulfonamide antibiotics), and Topiramate Surgical History: Past Surgical History: Procedure Laterality Date ??? CARPAL TUNNEL RELEASE Left 02/2019 ??? CLEFT PALATE REPAIR ??? PRO REBEKA NOSE/CLEFT LIP/TIP Bilateral 04/09/2020 RHINOPLASTY FOR CONGENITAL NASAL DEFORMITY, COLUMELLAR LENGTHENING, TIP ONLY (WRVU 10.32) performedby Mau Ochoa MD at [facility] OSC ??? ULNAR TUNNEL RELEASE Left 02/2019 Family and Social History Family History: No family history on file. Social History: [place] in [place] [address] Social History Socioeconomic History ??? Marital status: [...] file Gets together: Not on file Attends catholic service: Not on file Active member of [...] ??? Not on file Physical Exam Temperature: Heart Rate: Blood Pressure: Respiratory Rate: SpO2: [...] without deformity. Hearing is grossly normal. Nose: Septum is midline. There is mild crusting over the right side of the perforation. The perforation does appear smaller in size today measuring about 5 x 10 mm in size. Oral: There are no visible or palpable buccal, gingival, lingual, or palatal lesions. The floor of mouth is soft and flat. Dentition is in good repair. Oropharynx: Symmetric without tonsillar pathology. No other concerning lesions or masses Larynx:No hoarseness or stridor. External laryngeal structures normal to palpation. Face [...] I reviewed the following imaging studies: Procedures ASSESSMENT & RECOMMENDATIONS Marilin Allen is a 45 y.o. with septal perforation and mild nasal crusting. She is not responded to humidification alone. Attempts at placing a septal button today were unsuccessful due to the smallsize of the perforation. Recommendations: 1. At this point we discussed the risks and benefits of septal perforation repair. She understands them and would like to proceed. We will schedule this at her convenience. Rebekah Lion MD Otolaryngology - Head and Neck Surgery 06/15/20 9:28 AM documented in this encounter Plan of Treatment Not on file documented as of this encounter Visit Diagnoses Diagnosis Nasal septal perforation Other diseases of nasal cavity and sinuses documented in this encounter Care Teams Strategic Buyer Relationship Specialty Start Date End Date Diya Gifford MD [facility] [address] [place] [address] PCP - General Family Medicine 08/18/19 documented as of this encounter
--- OUTSIDE RECORDS SUMMARY | 2024-02-23 17:21 | XMS_ITS | Encounter Summary ---
Author Organization [facility] Address [facility] [place] [address] Care Team Providers Care Movement Education Specialist Name Role Phone Sly Schultz MD Primary Care Provider [phone] Encounter Details Date Type Department Care Team (Late st Contact Info) Description 07/29/2019 Ancillary Procedure [place] [address] Diya Gifford MD [address] [place], [place] [address] Social History Tobacco Use Types Packs/Day Years [...] Diagnosis Comments FILM LIBRARY STORAGE ONLY MR SHOULDER Routine 07/29/2019 12:00 AM EST documented in this encounter Results * Film Library- Storage Only MR Shoulder (07/29/2019 12:00 AM EST) Narrative [facility] - 12/01/2019 1:44 PM EDT This exam is auto-finalizing. It's purpose is for storage only. Diya Gifford MD IMG FILM LIBRARY OR DERABLES [place], [place] documented in this encounter Visit Diagnoses Not on filedocumented in this encounter Care Teams Movement Education Specialist Relationship Specialty Start Date End Date Sly Schultz MD [address] [place] [address] [address] [place] [address] PCP - General 05/21/10 08/17/19 documented as of this encounter
--- OUTSIDE RECORDS SUMMARY | 2024-02-23 17:21 | XMS_ITS | Encounter Summary ---
Author Organization [facility] Address [facility] [place] [address] Care Team Providers Care Health Inspector Name Role Phone Diya Gifford MD Primary Care Provider [phone] Encounter Details Date Type Department Care Team (Late st Contact Info) Description 10/08/2021 Ancillary Procedure [facility] [place] [address] Diya Gifford MD [address] [place], [place] [address] Social History Tobacco Use Types Packs/Day Years [...] Associated Diagnosis Comments FILM LIBRARY STORAGE ONLY DX SPINE Routine 10/08/2021 12:00 AM EDT documented in this encounter Results * Film Library- Storage Only DX Spine (10/08/2021 12:00 AM EDT) Narrative [facility] - 08/10/2023 3:23 PM EST This exam is auto-finalizing. It's purpose is for storage only. Diya Gifford MD IMG FILM LIBRARY OR DERABLES [place], [place] documented in this encounter Visit Diagnoses Not on filedocumented in this encounter Care Teams Health Inspector Relationship Specialty Start Date End Date Diya Gifford MD [address] [place] [address] PCP - General Family Medicine 08/18/19 documented as of this encounter
--- OUTSIDE RECORDS SUMMARY | 2024-02-23 17:21 | XMS_ITS | Encounter Summary ---
[place] [address] Care Team Providers Care Marketing Forecaster Name Role Phone Diya Gifford MD Primary Care Provider [phone] Reason for Referral * Consultation (Urgent) - Authorized Specialty Diagnoses / Procedures Referred By Ar salinas Referred To Contact [facility] Diagnoses Other chronic pain Chronic left shoulder pain Chronic neck pain Pain- chronic neck pain/ [place] 2021 [place] [facility] pain mgmt options Diya Gifford MD [address] [place] [address] [facility] [place] [place] [address] Referral ID Status Reason Start Date Expiration Date Visits Requested Visits Authorized [id number] Authorized Consult, Test & Treat PCP Updated and/or Approved 07/16/2023 07/21/2024 6 6 Encounter Details Date Type Department Care Team (Latest Contact Info) Description 07/22/2023 Transcribe Orders eDH Incoming Referrals [phone] Diya Gifford MD [address] [place] [address] Other chronic pain; Chronic left shoulder pain; Chronic neck pain Social History Tobacco Use Types Packs/Day [...] Management Outpatient Referral Urgent Other chronic pain Chronic left shoulder pain Chronic neck pain Ordered: 07/22/2023 documented as of this encounter Visit Diagnoses Diagnosis Other chronic pain Chronic left shoulder pain Pain in joint, shoulder region Chronic neck pain Cervicalgia documented in this encounter Care Teams Marketing Forecaster Relationship Specialty Start Date End Date Diya Gifford MD [address] [place] [address] PCP - General Family Medicine 08/18/19 documented as of this encounter
--- OUTSIDE RECORDS SUMMARY | 2024-02-23 17:21 | XMS_ITS | Encounter Summary ---
Author Organization [facility] Address [facility] [place] [address] Care Team Providers Care Door Installer Name Role Phone Diya Gifford MD Primary Care Provider [phone] Reason for Visit * Reason Comments Follow Up Surgery s/p rhinoplasty Encounter Details Date Type Department Care Team (Late st Contact Info) Description 08/28/2020 2:30 PM EST Office [place] [address] Mau Ochoa MD [facility] [address] Nasal septal perforation Social History Tobacco Use [...] as of this encounter Progress Notes * Mau Ochoa MD - 08/28/2020 2:30 PM EST Plastic Surgery Follow-up Note Reason for visit: F/U status post procedure Date of surgery: 04/09/2020 Procedure(s): rhinoplasty for congenital nasal deformity (Don) Complications: None reported HPI: Patient reports she is doing well. Arrives unaccompanied for today's visit. Notes that her nose continues to appreciate her nose continuing to drip. Has seen Dr. Lion to discuss a septal perforation repair and plans to proceed with surgery in the near future. Overall very happy with the appearance of her nose. Examination: Patient is alert, conversant, comfortable, ambulating Incision: CDI, healing well. Nares patent bilateral Nose appears symmetric and without deformity, with some edema No collection, no erythema, no evidence of cellulitis. Impression: Marilin Allen is a 45 y.o. female who was seen today for follow-up after the above procedure. Please see the operative note for details. She has excellent results, I am very pleased withthe symmetry of her nose. Breathing issues have improved with her recent surgery. Continues to haveresolving swelling at the tip of her nose and assured that this may take up to a year to settle. Zachariah plan to see Marilin in 6 months to monitor her healing process. Photos were obtained with signed informed consent. Plan: Follow up: 6 months with me I, Ashlyn Sparrow, have preformed the documentation for this encounter in the presence of and acting as a scribe for MAU OCHOA MD. documented in this encounter Plan of Treatment Not on file documented as of this encounter Visit Diagnoses Diagnosis Nasal septal perforation Other diseases of nasal cavity and sinuses documented in this encounter Care Teams Door Installer Relationship Specialty Start Date End Date Diya Gifford MD [address] [place] [address] PCP - General Family Medicine 08/18/19 documented as of this encounter
--- OUTSIDE RECORDS SUMMARY | 2024-02-23 17:21 | XMS_ITS | Encounter Summary ---
Author Organization [facility] Address [facility] [place] [address] Care Team Providers Care Heat Pump Installer Name Role Phone Sly Schultz MD Primary Care Provider Encounter Details Date Type Department Care Team (Late st Contact Info) Description 05/05/2019 Ancillary Procedure [place] [address] [facility] [place] [address] Social History Tobacco Use Types Packs/Day Years [...] Diagnosis Comments FILM LIBRARY STORAGE ONLY DX SHOULDER Routine 05/05/2019 12:00 AM EST documented in this encounter Results * Film Library- Storage Only DX Shoulder (05/05/2019 12:00 AM EST) Narrative [facility] - 12/01/2019 3:17 PM EDT This exam is auto-finalizing. It's purpose is for storage only. Martin Toledo MD IMG FILM LIBRARY ORD ERABLES [place], [place] documented in this encounter Visit Diagnoses Not on filedocumented in this encounter Care Teams Heat Pump Installer Relationship Specialty Start Date End Date Sly Schultz MD [address] [place] [address] [address] [place] [address] PCP - General 05/21/10 08/17/19 documented as of this encounter
--- OUTSIDE RECORDS SUMMARY | 2024-02-23 17:21 | XMS_ITS | Encounter Summary ---
Author [facility] [place] [address] Care Team Providers Care Auto Repair Shop Manager Name Role Phone Diya Gifford MD Primary Care Provider [phone] Reason for Referral * Consultation (Routine) - Authorized Specialty Diagnoses / Procedures Referred By Ar salinas Referred To Contact [facility] Diagnoses Other chronic pain Chronic pain in left shoulder Chronic neck pain Neck w/left shoulder pain/no new imagingplease advise we will not take over medications FVE TPL Diya Gifford MD [address] [place] [address] [facility] [place] [address] Referral ID Status Reason Start Date Expiration Date Visits Requested Visits Authorized [id number] Authorized Consult, Test & Treat PCP Updated and/or Approved 04/23/2024 1 1 Encounter Details Date Type Department Care Team (Latest Contact Info) Description 04/24/2023 Transcribe Orders eDH Incoming Referrals [phone] Diya Gifford MD [address] [place] [address] Other chronic pain; Chronic pain in left shoulder; Chronic neck pain Social History Tobacco Use [...] Schedule Referral to Pain Management Outpatient Referral Routine Other chronic pain Chronic pain in left shoulder Chronic neck pain Ordered: 04/24/2023 documented as of this encounter Visit Diagnoses Diagnosis Other chronic pain Chronic pain in left shoulder Pain in joint, shoulder region Chronic neck pain Cervicalgia documented in this encounter Care Teams Auto Repair Shop Manager Relationship Specialty Start Date End Date Diya Gifford MD [address] [place] [address] PCP - General Family Medicine 08/18/19 documented as of this encounter
--- OUTSIDE RECORDS SUMMARY | 2024-02-23 17:21 | XMS_ITS | Encounter Summary ---
Author Organization [facility] [place] [address] Care Team Providers Care Funeral Director/Embalmer Name Role Phone Diya Gifford MD Primary Care Provider [phone] Encounter Details Date Type Department Care Team (Late st Contact Info) Description 04/23/2022 1:00 PM EDT Office Visit Dermatology [facility] [address] [place] [address] Luciano Parson [facility] [address] [facility] [place] [address] Prurigo Social History Tobacco Use Types Packs/Day Years [...] Progress Notes * Luciano Parson MD - 04/23/2022 1:00 PM EDT Images from the original note were not included. DEPARTMENT OF DERMATOLOGY Medical Dermatology Clinic Provider: Luciano Parson MD FAAD at Dermatology [facility] Patient's preferred name Marilin Preferred contact method [...] 47 y.o. and here for the following: ??? 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 Denies picking at them extensively but does admit to picking at them few timesa month. Medications: Reviewed in eD-H Allergies: Reviewed in eD-H Skin Examination Standby: Simone Victor MA Well developed, well-nourished in no apparent distress, alert and oriented to time, person, place and situation. Focused examination of the skin of the face significant for the following: Exam Findings/Assessment/Plan Prurigo lichenified 6x5 mm pink papule on the left preauricular cheek and a 5 mm slightly lichenified pink papule on the left chin. Laboratory Results [id number] A. Left preauricular cheek, skin shave biopsy: - Verrucoid epidermal hyperplasia with parakeratosis, vascular ectasia and subtle fibrosis ??(see discussion) ?? B. Left chin, skin shave biopsy: - Verrucoid epidermal hyperplasia associated with dense collection of histiocytes and??multinucleated giant cells ?? (see discussion) ?? DISCUSSION A. 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 B. The findings suggest sequela of a ruptured follicle or follicular cyst and associated features of prurigo. Recurrence. Recommend ILK Counseled: Benign, associated with picking/itching, and management by breaking itch/scratch cycle. Treatments include but are not limited to topical steroids, ILK, surgical removal and cryotherapy; discussed major risk of ILK including skin atrophy and major risks of excision or cryotherapy including pain, scar and infection. Answered all questions. Patient elects to proceed with injections ??? Total 2 treated with Kenalog 2.5mg/ml [Lot# [id number]/ Exp JUL 2023], total 0.3 ml after verballydiscussing the disease and treatment options, Kenalog IL method, expected results/course and potential adverse effects, including pain, dyspigmentation, atrophy, and recurrence. Patient verbally agreed. Area prepped with alcohol. Blanching noted. Hemostasis achieved with drysol, as needed. Post-procedure pain 0/10. Patient tolerated well with no complications. Wound care instructions provided. Follow-up: 3 weeks for re-evaluate prurigo post ILK. Return sooner as needed for suspicious lesion,new or worsening dermatitis. [] Recall placed [x] Forwarded to senior power scheduler [] Patient scheduled before exiting Scribe attestation: Simone Victor MA has performed the documentation for this encounter in the presence of and acting as a scribe for Luciano Parson MD FAAJenna. I performed the above scribed service and agree with the accuracy of the documentation in this encounter. Reviewed and signed by: Luciano Parson MD FAAD Dermatology [facility] documented in this encounter Plan of Treatment Not on file documented as of this encounter Visit Diagnoses Diagnosis Prurigo documented in this encounter Care Teams Funeral Director/Embalmer Relationship Specialty Start Date End Date Diya Gifford MD [address] [place] [address] PCP - General Family Medicine 08/18/19 documented as of this encounter
--- OUTSIDE RECORDS SUMMARY | 2024-02-23 17:21 | XMS_ITS | Clinical Summary ---
Author Organization [facility] Address [facility] [place] [address] Care Team Providers Care Hide Measuring Machine Operator Name Role Phone Diya Gifford MD Primary Care Provider Allergies Active Allergy Reactions Criticality Noted Date Comments Erythromycin 11/19/2017 Other reaction(s): Unknown Shellfish Containing Products 07/29/2010 Sulfa (Sulfonamide Antibiotics) 10/14/2019 Topiramate 11/19/2017 Other reaction(s): blurred vision Unclassified Drug Nausea And Vomiting High 8 Tylenol with codeine Medications Medication Sig Dispensed Refills Start Date End Date Status cetirizine (ZyrTEC) 10 mg Tablet Take 10 mg by mouth Daily. Active doxycycline (VIBRAMYCIN) 100 mg Capsule TAKE 1 CAPSULE BY MOUTH ONCE DAILY 09/07/2019 Active gabapentin (NEURONTIN) 800 mg Tablet TAKE ONE TABLET BY MOUTH FOUR TIMES DAILY 05/02/2019 Active hydroCHLOROthiazide (HYDRODIURIL) 12.5 mg Tablet 06/27/2019 Active hydrOXYzine (VISTARIL) 25 mg Capsule TAKE 1 CAPSULE BY MOUTH TWICE A DAY 08/17/2019 Active Acidophilus-Pectin, [place] 25 million cell -100 mg Tablet TAKE 1 TABLET BY MOUTH DAILY 08/11/2019 Active Introvale 0.15 mg-30 mcg (91) , 91 tablet dose pack, 3 months TAKE 1 TABLET BY MOUTH ONCE DAILY 08/11/2019 Active metoprolol succinate XL (Toprol-XL) 100 mg Tablet Sustained Release 24 hr Take 100 mg by mouth Daily. Active omeprazole (PriLOSEC) 20 mg Capsule, Delayed Release(E.C.) Take 20 mg by mouth Daily. Active ondansetron ODT (Zofran-ODT) 8 mg Tablet, Rapid Dissolve Take 8 mg by mouth Every 8 hours as needed. 08/01/2016 Active oxyCODONE-acetaminoph en (Percocet) 5-325 mg Tablet Take 2 tablets by mouth Every 8 hours as needed. 07/29/2010 Active venlafaxine (EFFEXOR-XR) 150 mg Capsule, Sust. Release 24 hr Take 75 mg by mouth Daily. Active zolpidem (AMBIEN CR) 12.5 mg Tablet, Multiphasic Release TK 1 T PO QD HS 08/25/2019 Active diclofenac (VOLTAREN) 1 % Gel Apply topically as needed. Active venlafaxine XR (Effexor-XR) 75 mg ER 24 hr capsule Take 75 mg by mouth daily. To be takes with the 150 mg daily 08/03/2023 Active traZODone (Desyrel) 50 mg tablet Take 50 mg by mouth nightly. 10/04/2021 Active montelukast (Singulair) 10 mg tablet Take 1 tablet by mouth nightly. 06/10/2023 Active lamoTRIgine (LaMICtal) 25 mg tablet Take 2 tablets by mouth nightly. 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 Dysfunction of right eustachian tube 04/24/2016 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 Refractory obstruction of nasal airway 6 Unilateral complete cleft palate with cleft lip 02/05/2016 Social History Tobacco Use Types Packs/Day Years Used Date Smoking Tobacco: Never Smokeless Tobacco: Never Alcohol Use Standard Drinks/Week Comments Yes 0 (1 standard drink = 0.6 oz pur e alcohol) Rare Sex and Gender Information Value Date Recorded Sex Assigned at Not on file Gender Identity Not on file Sexual Orientation Not on file Last Filed Vital Signs Vital Sign Reading Time Taken Comments Blood Pressure 153/92 08/11/2023 9:10 AM EST Pulse 80 08/11/2023 9:10 AM EST Temperature 35.9 ??C (96.6 ??F) 04/09/2020 1:58 PM ED T Respiratory Rate 18 04/09/2020 2:58 PM EDT Oxygen Saturation 99% 08/11/2023 9:10 AM EST Inhaled Oxygen Concentration - - Weight 90.7 kg (200 lb) 08/11/2023 9:10 AM EST Height 152.4 cm (5') 08/11/2023 9:10 AM EST Body Mass Index 39.06 08/11/2023 9:10 AM EST Plan of Treatment Health Maintenance Due Date Last Done Comments CT Colonography 1974 Colonoscopy 1974 Colorectal Cancer Screening 1974 FIT DNA 1974 FIT 1974 Sigmoidoscopy (10 year) with FIT yearly 1974 Sigmoidoscopy 1974 HIV screen 01/27/1992 Hepatitis C Screening 01/27/1992 Lipid Screening 01/27/1992 Hepatitis B vaccine (0-59 yrs) (1) 1993 Tdap adult 1993 Tetanus vaccine 1993 HPV test 01/27/2004 PAP Smear 01/27/2004 Breast Cancer Share Decision Needed 2014 Breast Cancer screening 2014 Diabetes Screening (HgbA1C or Glucose) 2014 Covid-19 Vaccine (1 - 2022-24 season) 2023 Zoster vaccine (1 of 2) 01/27/2024 Influenza (Flu) vaccine (1 o f 1 - Influenza standard series) 02/28/2024 Care Teams Hide Measuring Machine Operator Relationship Specialty Start Date End Date Diya Gifford MD [address] [place] [address] PCP - General Family Medicine 08/18/19
--- OUTSIDE RECORDS SUMMARY | 2024-02-23 17:21 | XMS_ITS | Encounter Summary ---
Author Organization [facility] [place] [address] Care Team Providers Care Datapower Developer Name Role Phone Diya Gifford MD Primary Care Provider [phone] Encounter Details Date Type Department Care Team (Late st Contact Info) Description 01/22/2021 Telephone Otolaryngology at [facility] [place] [id number] Mikki Rucker Social History Tobacco Use Types Packs/Day Years [...] encounter Miscellaneous Notes * Telephone Encounter - Mikki Rucker - 01/22/2021 1:12 PM EDT Jose Guadalupe, Patient is scheduled to have surgery on 04/04/2021 and the packet has been mailed to the verified address on file. Follow up appointment is as follows: F/u appt 1 week postop, thanks! Thank you!! documented in this encounter Plan of Treatment Not on file documented as of this encounter Visit Diagnoses Not on filedocumented in this encounter Care Teams Datapower Developer Relationship Specialty Start Date End Date Diya Gifford MD [address] [place] [address] PCP - General Family Medicine 08/18/19 documented as of this encounter
--- OUTSIDE RECORDS SUMMARY | 2024-02-23 17:21 | XMS_ITS | Encounter Summary ---
Author Organization [facility] Address [facility] [place] [address] Care Team Providers Care Full Stack Php Developer Name Role Phone Diya Gifford MD Primary Care Provider [phone] Reason for Visit * Reason Comments Cleft Palate * Consultation (Routine) - Closed Specialty Diagnoses / Procedures Referred By Ar t Referred To Contact Plastic Surgery Diagnoses Cleft palate, unspecified S/P MULTIPLE REPAIRS Diya Gifford MD [address] [place] [address] [facility] [address] [address] Referral ID Status Reason Start Date Expiration Date V isits Requested Visits Authorized [id number] Closed Consult, Test & Treat Connection Center PCP Updated and/or Approved 08/17/2019 02/15/2020 1 1 Encounter Details Date Type Department Care Team (Latest Contact Info) Description 10/18/2019 8:45 AM EDT TH Visit (TeleHealth) [place] [address] Mau Ochoa MD [facility] [place] [address] Hx of cleft palate; Oronasal fistula Social History Tobacco Use Types Packs/Day Years Used Date Smoking Tobacco: Never Smokeless Tobacco: Never Sex and Gender Information Value Date Recorded Sex Assigned at Not on file Gender Identity Not on file Sexual Orientation Not on file documented as of this encounter Progress Notes * Mau Ochoa MD - 10/18/2019 8:45 AM EDT Plastic Surgery Telemedicine Consultation: Craniofacial Clinic Mau Ochoa MD PCP: Diya Gifford MD CC: Cleft Palate HPI: Marilin Allen was seen today for a face to face telemedicine visit in regards to hx unilateral complete cleft lip and palate. The patient was unaccompanied for today's visit. She has received care regarding her cleft lip and palate by Dr. Juan Luis Celeste, Dr. Jeet Guan, and Dr Juliano Penny. She is being seen as part of a telemedicine visit at this point. She did have prior repair about the cleft nasal deformity as well as a cleft palate fistula. She feels that this may have opened up. Sheis interested in an opinion about the possible repair of this oronasal fistula. Past medical history: Cleft lip and palate Past surgical history: Status post repair of the cleft lip and palate, status post repair of the cleft nasal deformity and palatal fistula Family history: negative for clefting SH: negative for tobacco ROS: System Constitutional neg Eye neg ENT Hx Cleft Lip and palate CV neg Resp neg GI neg neg Skin neg Allergy neg Endocrine neg Neurologic neg Musculoskeletal neg Lymph neg Psych neg Y N All other systems reviewed and negative. x EXAM: There were no vitals taken for this visit. Examination was performed during the telemedicine visit today CT Face wo Contrast 02/28/16 1. Stable findings of unilateral cleft lip and palate 2. Stable narrowing of the right nasal passageway Impression: Marilin Allen was seen today via telemedicine regarding her hx cleft palate.. She has had prior surgery and is concerned that she may have developed a palatal fistula from her prior surgery elsewhere. She would like a second opinion regarding this. Her symptoms seem to support this andCT scan findings were inconclusive and as well these are several years old. I have reviewed them nonetheless and decision making would likely require another CT scan and the possibility of nasal endoscopy. I would like to have her evaluated in our craniofacial team visit and have her see our speechtherapist as well. I would like to plan for an in office visit once we have passed the point of the initial phase of COVID-19 and we can perform an examination and assess her needs more completely. Plan: 1. Follow-up in [facility] in approximately 2 months. DOCUMENTATION FOR TELEMEDICINE CONSULT This patient is under my care. I had a face to face encounter that meets the physician face to faceencounter requirements with this patient today, I performed the services in this encounter. MAU OCHOA MD. documented in this encounter Plan of Treatment Not on file documented as of this encounter Visit Diagnoses Diagnosis Hx of cleft palate Personal history of (corrected) congenital malformations of eye, ear, face and neck Oronasal fistula Cleft palate, unspecified documented in this encounter Care Teams Full Stack Php Developer Relationship Specialty Start Date End Date Diya Gifford MD [address] [place] [address] PCP - General Family Medicine 08/18/19 documented as of this encounter
--- OUTSIDE RECORDS SUMMARY | 2024-02-23 17:21 | XMS_ITS | Encounter Summary ---
Author Organization [facility] Address [facility] [place] [address] Care Team Providers Care Regional Facilities Manager Name Role Phone Diya Gifford MD Primary Care Provider [phone] Reason for Referral * Consultation (Routine) - Closed Specialty Diagnoses / Procedures Referred By Ar salinas Referred To Contact Otolaryngology Diagnoses Hx of cleft palate Oronasal fistula Nasal septal perforation Mau Ochoa MD [facility] [place] [address] Rebekah Lion MD [facility] [place] [address] Referral ID Status Reason Start Date Expiration Date V isits Requested Visits Authorized [id number] Closed Consult, Test & Treat 01/10/2020 01/09/2021 1 1 Reason for Visit * Reason Comments Follow-up cleft lip Encounter Details Date Type Department Care Team (Late st Contact Info) Description 01/10/2020 11:00 AM EDT Office [place] [address] aMu Ochoa MD [facility] [place] [address] Hx of cleft palate; Oronasal fistula; Nasal septal perforation Social History Tobacco Use Types Packs/Day Years Used Date Smoking Tobacco: Never Smokeless Tobacco: Never Sex and Gender Information Value Date Recorded Sex Assigned at Not on file Gender Identity Not on file Sexual Orientation Not on file documented as of this encounter Progress Notes * Oliva Barney - 01/10/2020 11:00 AM EDT Plastic Surgery Telemedicine Consultation: Craniofacial Clinic Mau Ochoa MD PCP: Diya Gifford MD CC: Cleft Palate HPI: Marilin Allen was seen today regarding hx unilateral complete cleft lip and palate. The patient was unaccompanied for today's visit. Pt had a CT scan prior to her visit today. She states that her last revision was approximately 4 years ago at which time they took a cartilage graft from the ear for her nasal repair. She feels that the area that impacts her the most is behind the left nostriland reports feeling a crater behind her nose. She notices a drip or drainage from the nose. She denies any prior problems with speech. Hx of braces as a child. Past medical history: Cleft lip and palate [...] for this visit. Cleft lip repair scar No evidence of a fistula Palate mobile Healed right unilateral cleft lip Probable septal perforation EXAMINATION: CT FACE WO CONTRAST ?? CLINICAL [...] cleft palate. She is well-appearing for today's visit.I will review these and communicate the results with her. On examination she demonstrates a healed right unilateral cleft lip. Her palate is mobile and well-healed. We discussed that she mayhave a septal perforation which is likely resulting in her pain and nasal discharge. I recommend proceeding with a nasal endoscopy to further evaluate the structure of the nose. Referral placed todayto Jesusita Lion MD in ENT to evaluate for possible septal perforation and consideration of repair. . Iwould like to see her for follow-up with the results of the nasal endoscopy. Plan: 1. Refer for nasal endoscopy and evaluation with Dr. Lion. 2. Follow-up same day as ENT evaluation Addendum: Review of her CT scan shows a significant nasal septal perforation. I am not sure whetherthis is from prior surgery elsewhere. I believe the nasal endoscopy would be most useful. We have placed a referral to Dr. Lion for evaluation. I, Oliva Barney, have performed the documention for this encounter [...] and neck Oronasal fistula Cleft palate, unspecified Nasal septal perforation Other diseases of nasal cavity and sinuses documented in this encounter Care Teams Regional Facilities Manager Relationship Specialty Start Date End Date Diya Gifford MD [address] [place] [address] PCP - General Family Medicine 08/18/19 documented as of this encounter
--- OUTSIDE RECORDS SUMMARY | 2024-02-23 17:21 | XMS_ITS | Encounter Summary ---
Author Organization [facility] Address [facility] [place] [address] Care Team Providers Care Matrix Drier Tender Name Role Phone Diya Gifford MD Primary Care Provider [phone] Encounter Details Date Type Department Care Team (Late st Contact Info) Description 04/10/2020 Notes Only Plastic Surgery at [facility] [place] [address] Arabella Oakley, RN Social History Tobacco Use Types Packs/Day Years Used Date Smoking Tobacco: Never Smokeless Tobacco: Never Alcohol Use Standard Drinks/Week Comments Yes 0 (1 standard drink = 0.6 oz pur e alcohol) Rare Sex and Gender Information Value Date Recorded Sex Assigned at Not on file Gender Identity Not on file Sexual Orientation Not on file documented as of this encounter Progress Notes * Arabella Oakley, RN - 04/10/2020 1:27 PM EDT TELEPHONE NOTE Date of call: 04/10/2020 Time of call: 1:28 PM Caller:Marilin Case Date: 04/09/2020 ?? Surgeon: Surgeon(s) and Role: * Mau Ochoa MD - Primary * Jenny Rollins MD - Resident ?? Preoperative diagnosis: cleft nasal deformity ?? Postoperative diagnosis: cleft nasal deformity ?? Procedure(s) (LRB): RHINOPLASTY FOR CONGENITAL NASAL DEFORMITY, COLUMELLAR LENGTHENING, TIP ONLY (WRVU 10.32) (Bilateral) Reason for call: Concerned about blurry vision Discussed with ; per Dr. Ochoa the blurry vision has nothing to do with her surgery, most likely related to the lubricant placed in both eyes for moisture during surgery. Plan: we discussed gently rinsing eyes with saline eye wash, which should help remove the lubricant. Caller agrees with plan: yes documented in this encounter Plan of Treatment Not on file documented as of this encounter Visit Diagnoses Not on filedocumented in this encounter Care Teams Matrix Drier Tender Relationship Specialty Start Date End Date Diya Gifford MD [address] [place] [id number] PCP - General Family Medicine 08/18/19 documented as of this encounter
--- OUTSIDE RECORDS SUMMARY | 2024-02-23 17:21 | XMS_ITS | Encounter Summary ---
Author Organization [facility] [place] [address] Care Team Providers Care Grinder Hand Name Role Phone Diya Gifford MD Primary Care Provider [phone] Encounter Details Date Type Department Care Team (Late st Contact Info) Description 02/19/2021 1:45 PM EDT Office Visit Dermatology [facility] [address] [place] [address] Luciano Parson MD [address] [facility] [place] [address] Neoplasm of uncertain behavior of skin of face Social History Tobacco Use Types Packs/Day Years [...] Progress Notes * Luciano Parson MD - 02/19/2021 1:45 PM EDT Images from the original note were not included. DEPARTMENT OF DERMATOLOGY Medical Dermatology Clinic Provider: Luciano Parson MD FAAD at Dermatology [facility] Patient's preferred name Marilin ?? PAST MEDICAL HISTORY ?? Melanoma ?? Dysplastic nevi ?? SCC ?? BCC ?? Other relevant history ?? FAMILY HISTORY ?? Melanoma ?? NMSC ?? Other relevant history ?? SOCIAL HISTORY ? 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 and here for the following: ?? 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 Mildto moderate tenderness. No bleeding. Growing in size. Never been biopsied. Medications: Reviewed in eD-H Allergies: Reviewed in eD-H Skin Examination Standby: Nelly Thomas POOJAErin Well developed, well-nourished in no apparent distress, alert and oriented to time, person, place and situation. Focused examination of the skin of the face, significant for the following: ??? 6 mm dull red papule on the left preauricular cheek (specimen A) ??? 6x4 mm dull red papule on the left chin (specimen B) ??? 3x4 mm dull red papule on the left nasal sidewall (speicmen C) Procedure / Biopsy Discussed with patient diagnostic options, including the risks and benefits of observation, empirictreatment, or biopsy - including but not limited to recurrence, cosmesis (scar, dyspigmentation, scar spread,keloid), pain, keloid/hypertrophic scar, bleeding, infection for biopsy. Answered all quest ions. Patient verbally understands, verbally consents to and elects biopsy. Images Photo(s) taken by Cindy Parson MD. with patient's verbal permission for use for clinical and education purposes. Figure A Figure B Figure C Procedure Time Out Performed: Name, , and site(s) confirmed with patient [x] Yes Blood Thinner? [x] Denies [] Yes Pacemaker or defribrillator? [x] Denies [] Yes Joint Replacement in the last 24 months? [x] Denies [] Yes Antibiotics prior to procedures? [x] Denies [] Yes Allergy to lidocaine or epinephrine? [x] Denies [] Yes or breast feeding? [x] Denies [] Yes Permission to convey results: [x] Call (H) and permission to leave voicemail [x] Permission to discuss results with sonMadan. Permission to call Missy Kumar for biopsyresults if patient is not responding. Procedure (s) A. [x] Shave B. [x] Shave C. [x] Shave Location (s) A. Left preauricular cheek B. Left chin C. Left nasal sidwall Pre-Operative Diagnosis A. Wart v ISK over SCC B. Wart v ISK over SCC C. ISK over SCC or angioma Anesthesia: 1% lidocaine [] NO epi [x] 1:100,000 epi Sterile Prep Alcohol Lesions A, B and C biopsied with shave technique using haydee blade. Wound edges gently featheredwith a 2 mm curette. Hemostasis achieved with [x] Drysol [] Monsels [] Elecrocautery. <1ml bloodloss. No complications. Specimen(s): Placed in formalin and sent to Pathology for histologic examination. Post-op care: Vaseline, [x] Bandaid [] Pressure Dressing Post-operative pain: 0/10 Assessment/Plan Neoplasms of Uncertain Behavior Discussed differential diagnoses as above, and management options including diagnostic biopsy and its risk for scar, pain, infection as well as biopsy wound care instructions. Discussed that pathology results will be available in approximately 1 week; and patient to contact clinic if result is not available in 2 weeks. Answered all questions. Patient elects biopsy, as above. ?? Wound care instructions provided including cleaning Vaseline or topical antibiotic once or twicea day, allowing soapy water to wash over wound daily, and an optional Band-Aid or bandage. Recommend sun protection after the wound is healed to mitigate long-term redness. Follow-up: pending pathology. Return sooner as needed for suspicious lesion, new or worsening dermatitis. [] Recall placed [] Forwarded to newborn photographer [] Patient scheduled before exiting Scribe attestation: Nelly Thomas [facility] has performed the documentation for this encounter in the presence of and acting as a scribe for MD CHAMP Valentin. I performed the above scribed service and agree with the accuracy of the documentation in this encounter. Reviewed and signed by: MD CHAMP Valentin Dermatology [facility] * Luciano Parson MD - 02/19/2021 1:45 PM EDT [id number] A. Left preauricular cheek, skin shave biopsy: - Verrucoid epidermal hyperplasia with parakeratosis, vascular ectasia and subtle fibrosis ??(see discussion) B. Left chin, skin shave biopsy: - Verrucoid epidermal hyperplasia associated with dense collection of histiocytes and??multinucleated giant cells ?? (see discussion) C. Left nasal sidewall, skin shave biopsy: - Portion of ??follicular infundibular cyst/milia ?? and associated vascular ectasia DISCUSSION A. 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 B. The findings suggest sequela of a ruptured follicle or follicular cyst and associated features of prurigo. A. PRURIGO/SCAR, LEFT PREAURICULAR CHEEK Benign but evidence of picking and trauma. Recommend ILK if recurs. B. PRURIGO SECONDARY TO RUPTURED FOLLICLE, LEFT CHINBenign but evidence of picking and trauma. Recommend ILK if recurs. C. CYST, LEFT NASAL SIDEWALL Benign. Return to clinic if recurs. Call (H) and permission to leave voicemail Permission to discuss results with Madan tay. Permission to call Missy Kumar for biopsy results if patient is not responding. * Fabienne Bhardwaj LPN - 02/19/2021 1:45 PM EDT Spoke with Marilin. Relayed her results and she will call if anything reoccurs. A. PRURIGO/SCAR, LEFT PREAURICULAR CHEEK Benign but evidence of picking and trauma. Recommend ILK if recurs. B. PRURIGO SECONDARY TO RUPTURED FOLLICLE, LEFT CHIN Benign but evidence of picking and trauma. Recommend ILK if recurs. C. CYST, LEFT NASAL SIDEWALL Benign. Return to clinic if recurs. Call (H) and permission to leave voicemail ??Permission to discuss results with Madan tay. Permission to call Missy Kumar for biopsy results if patient is not responding. documented in this encounter Plan of Treatment Scheduled Orders Name Type Priority Associated Diagnoses Orde r Schedule Pathology Order Update Pathology/Cytol ogy Routine Neoplasm of uncertain behavior of skin of face Ordered: 02/19/2021 documented as of this encounter Procedures Procedure Name Priority Date/Time Associated Diagnosis Comments SPECIMEN TO PATHOLOGY Routine 02/19/2021 4:40 PM EDT Neoplasm of uncertain behavior of skin of face SPECIMEN TO PATHOLOGY Routine 02/19/2021 4:39 PM EDT Neoplasm of uncertain behavior of skin of face SURGICAL PATHOLOGY REPORT Routine 02/19/2021 4:38 PM EDT SPECIMEN TO PATHOLOGY Routine 02/19/2021 4:38 PM EDT Neoplasm of uncertain behavior of skin of face documented in this encounter Results * Specimen to Pathology (02/19/2021 4:40 PM EDT) AP Specimen 02/19/2021 4:40 PM EDT 02/19/2021 4:40 PM EDT Narrative [facility] - 02/19/2021 4:40 PM EDT Specimen requisition ordered. ??Separate Pathology report to follow Luciano Parson MD PATHOLOGY/CYTOLOGY O RDERACARMEN Performing Organization Address [facility] Co de Phone Number [facility] [place] [address] * Specimen to Pathology (02/19/2021 4:39 PM EDT) AP Specimen 02/19/2021 4:39 PM EDT 02/19/2021 4:39 PM EDT Narrative [facility] - 02/19/2021 4:39 PM EDT Specimen requisition ordered. ??Separate Pathology report to follow Luciano Parson MD PATHOLOGY/CYTOLOGY O RDERABLES Performing Organization Address [facility] [place] [address] * Surgical Pathology Report (02/19/2021 4:38 PM EDT) Final Diagnosis [id number] ? Location: [facility] The signing pathologist has (i) examined the relevant preparation(s) for the specimen(s) and (ii) rendered or confirmed the diagnosis(es). . ?Surgical Pathology DIAGNOSIS A. Left preauricular cheek, skin shave biopsy: - Verrucoid epidermal hyperplasia with parakeratosis, vascular ectasia and subtle fibrosis ??(see discussion) B. Left chin, skin shave biopsy: - Verrucoid epidermal hyperplasia associated with dense collection of histiocytes and multinucleated giant cells ?? (see discussion) C. Left nasal sidewall, skin shave biopsy: - Portion of ??follicular infundibular cyst/milia ?? and associated vascular ectasia Electronically signed by: ?Callie Rosario MD Verified: ??02/25/2021 11:23 ??Dermatopatholo gist Performed at: ??-[facility] Dept. of Pathology, [place], [place] DISCUSSION A. 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 B. The findings suggest sequela of a ruptured follicle or follicular cyst and associated features of prurigo. ADDITIONAL STUDIES A-C. ??Multiple step-leveled sections were reviewed. B. SOX10 highlights back ground melanocytes and CK stain highlights epithelial cells. The histiocytes are highlighted by PU1. SPECIMEN(S) SUBMITTED A - Left preauricular cheek (specimen A), skin shave biopsy (1) B - left chin (specimen B), skin shave biopsy (1) C - left nasal sidewall ??(specimen C), skin shave biopsy (1) CLINICAL INFORMATION A - Wart versus ISK over SCC-6 mm dull red papule on the left preauricular cheek B - 6 x 4 mm dull red papule on the left chin. DX: Wart versus ISK over SCC C - DDX: ISK versus SCC or angioma-3 x 4 mm dull red papule on the left nasal sidewall SPECIMEN PROCESSING A - Labeled/Fixative : Left preauricular cheek, formalin. Quantity/Size: ??Single, 0.6 x 0.6 x 0.1 cm. Tissue Description: Baker-pink scaly papule. Sections/Process ing: Inked, bisected and entirely submitted in 1 cassette labeled A1. B - Labeled/Fixative : Left chin, formalin. Quantity/Size: ??Single, 0.8 x 0.5 x 0.15 cm. Tissue Description: Baker-pink irregularly pigmented scaly papule. Sections/Process ing: Inked, trisected and entirely submitted in 1 cassette labeled B1. . SPECIMEN PROCESSING C - Labeled/Fixative : Left nasal sidewall, formalin. Quantity/Size: ??Single, 0.5 x 0.3 x 0.1 cm. Tissue Description: Red-baker scaly papule. Sections/Process ing: Inked, bisected and entirely submitted in 1 cassette labeled C1. ??MLL 02/25/2021 11:23 AM EDT [facility] SPECIMEN FROM SKIN / Unknown 02/19/2021 4:38 PM EDT 02/19/2021 4:38 PM EDT SPECIMEN FROM SKIN / Unknown 02/19/2021 4:38 PM EDT 02/19/2021 4:38 PM EDT SPECIMEN FROM SKIN / Unknown 02/19/2021 4:38 PM EDT 02/19/2021 4:38 PM EDT Luciano Parson MD PATHOLOGY/CYTOLOGY O FRANKY Performing Organization Address [facility]/ZIP Co de Phone Number [facility] [place] [address] * Specimen to Pathology (02/19/2021 4:38 PM EDT) AP Specimen 02/19/2021 4:38 PM EDT 02/19/2021 4:38 PM EDT Narrative [facility] - 02/19/2021 4:38 PM EDT Specimen requisition ordered. ??Separate Pathology report to follow Luciano Parson MD PATHOLOGY/CYTOLOGY O FRANKY Performing Organization Address [facility]/ZIP Co de Phone Number [facility] [place] [address] documented in this encounter Visit Diagnoses Diagnosis Neoplasm of uncertain behavior of skin of face Neoplasm of uncertain behavior of skin documented in this encounter Care Teams Grinder Hand Relationship Specialty Start Date End Date Diya Gifford MD [address] [place] [address] PCP - General Family Medicine 08/18/19 documented as of this encounter
--- OUTSIDE RECORDS SUMMARY | 2024-02-23 17:21 | XMS_ITS ---
Author Organization Unknown Address [address] [place] [address] [phone] Phone Care Team Providers Care Computer Support Specialist Name Role Phone KATIE West Attending Unavailable RADHIKA Dhillon Primary Unavailable Results XR EXAM NECK SPINE 2-3 VW - Completed: 08/08/2021 14:10 LOINC: CERVICAL SPINE Two views. An AP and lateral view of the cervical spine was obtained. The odontoid cannot be evaluated on the AP view due to overlying structures. Comparison examination is 08/05/10. There is straightening of the normal cervical lordosis. Endplate osteophytes are seen at C5-6 and C6-C7. There is mild narrowing of the C6-C7 disc space. The bones are normally mineralized and appear intact. The prevertebral soft tissues are unremarkable. IMPRESSION: 1. Limited examination of the cervical spine. 2. Degenerative changes seen in the lower cervical spine. Dictated by: JONNATHAN ROMERO MD Transcribed by: [facility] 08/08/2114:08 D July 11:50:29 AM [id number] Electronically Reviewed and Signed By: APRIL ROMERO MD 08/08/21 14:45 Copy for: [address] [place] [address] INFORMATION MGMT XR SHOULDER 2+ VIEWS LT* - C ompleted: 08/08/2021 14:10 LOINC: LEFT SHOULDER Three views. Comparison 05/05/19. The acromioclavicular and glenohumeral joints are well maintained. The bones are intact and normally mineralized. The soft tissues are unremarkable. IMPRESSION: No acute abnormality. Dictated by: JONNATHAN ROMERO MD Transcribed by: [facility] 08/08/2112:19 D July 10:53:30 AM [id number] Electronically Reviewed and Signed By: APRIL ROMERO MD 08/08/21 14:45 Copy for: 185 [facility]ALTH INFORMATION MGMT Social History Type Status Start Date End Date Code Code Syst em Smoking History Never smoker (Never Smoked) 807463296 SNOMED CT Sex Female Medications Medication Start Date End Date Route Frequency Dose Code Code System Medication Instructions Home Meds Amitriptyline HCl 100MG Oral Tablet 07/19/2021 Unknown ORAL BEDTIME 100 MILLIGRAMS 189504 RxNorm TAKE 100 MILLIGRAMS ORAL BEDTIME Cyclobenzaprine 10MG Oral Tablet 07/19/2021 Unknown ORAL NEEDED THREE TIMES A DAY 10 MILLIGRAMS 571004 RxNorm TAKE 10 MILLIGRAMS ORAL NEEDED THREE TIMES A DAY Doxycycline 100MG Oral Capsule 07/19/2021 Unknown ORAL BEDTIME 100 MILLIGRAMS 8802362 RxNorm TAKE 100 MILLIGRAMS ORAL BEDTIME Gabapentin 800MG Oral Tablet 07/19/2021 Unknown ORAL BEDTIME 800 MILLIGRAMS 049745 RxNorm TAKE 800 MILLIGRAMS ORAL BEDTIME Loratadine 10MG Oral Tablet 07/19/2021 Unknown ORAL NEEDED DAILY 10 MILLIGRAMS 567577 RxNorm TAKE 10 MILLIGRAMS ORAL NEEDED DAILY Metoprolol Succinate 100MG Oral Tablet, Extended Release 07/19/2021 Unknown ORAL BEDTIME 100 MILLIGRAMS 999675 RxNorm TAKE 100 MILLIGRAMS ORAL BEDTIME Omeprazole 40MG Oral Capsule, Delayed Release 07/19/2021 Unknown ORAL BEDTIME 40 MILLIGRAMS 373353 RxNorm TAKE 40 MILLIGRAMS ORAL BEDTIME Percocet 5MG-325MG Oral Tablet 07/19/2021 Unknown ORAL NEEDED THREE TIMES A DAY 1 unit(s) 7342895 RxNorm TAKE 1 EACH ORAL NEEDED THREE TIMES A DAY SF 5000 Plus 1.1% Dental Cream 07/19/2021 Unknown DENTAL NEEDED 1 unit(s) 099511 RxNorm 1 EACH DENTAL NEEDED Venlafaxine HCl 150MG Oral Capsule, Extended Release 07/19/2021 Unknown ORAL BEDTIME 150 MILLIGRAMS 747514 RxNorm TAKE 150 MILLIGRAMS ORAL BEDTIME Venlafaxine HCl 37.5MG Oral Tablet 07/19/2021 Unknown ORAL BEDTIME 37.5 MILLIGRAMS 238674 RxNorm TAKE 37.5 MILLIGRAMS ORAL BEDTIME Voltaren Gel 1% Topical application Gel/Jelly 07/19/2021 Unknown TOPICA L APPLIC ATION TWICE A DAY 1 unit(s) 287487 RxNorm 1 EACH TOPICAL APPLICATION TWICE A DAY Zolpidem Tartrate 12.5MG Oral Tablet, Extended Release 07/19/2021 Unknown ORAL NEEDED AT BEDTIME 12.5 MILLIGRAMS 261392 RxNorm TAKE 12.5 MILLIGRAMS ORAL NEEDED AT BEDTIME diphenhydrAMINE HCl 25MG Oral Capsule 07/19/2021 Unknown ORAL DAILY 25 MILLIGRAMS 3034152 RxNorm TAKE 25 MILLIGRAMS ORAL DAILY hydrOXYzine HCl 25MG Oral Tablet 07/19/2021 Unknown ORAL TWICE A DAY 75 MILLIGRAMS 745969 RxNorm TAKE 75 MILLIGRAMS ORAL TWICE A DAY hydroCHLOROthia zide 12.5MG Oral Tablet 07/19/2021 Unknown ORAL BEDTIME 12.5 MILLIGRAMS 939565 RxNorm TAKE 12.5 MILLIGRAMS ORAL BEDTIME Percocet 5MG-325MG Oral Tablet 09/18/2022 Unknown ORAL NEEDED EVERY 4 HOURS 6204077 RxNorm TAKE 1-2 TABLET ORAL NEEDED EVERY 4 HOURS Flomax 0.4MG Oral Capsule 09/18/2022 Unknown ORAL DAILY 1 CAPSULE 581575 RxNorm TAKE 1 CAPSULE ORAL DAILY UNTIL STONE PASSES Ibuprofen 200MG Oral Tablet 09/18/2022 Unknown ORAL EVERY 6 HOURS 3 TABLET 187913 RxNorm TAKE 3 TABLET ORAL EVERY 6 [...] Date Status Code Code System HYPERTENSION active 27721266 SNOMED- CT PTSD active 12184675 SNOMED-CT SYNCOPE active 220441217 SNOMED-CT CHEST PAIN active 62996476 SNOMED-CT WEAKNESS active 32618203 SNOMED-CT URETEROLITHIASIS active 37694054 SNO MED-CT MIGRAINE 07/18/2021 resolved 64769573 SNOMED-CT CARPAL TUNNEL 07/18/2021 resolved 41234769 SNOME D-CT CHRONIC PAIN 07/18/2021 resolved 83029604 SNOMED -CT TONSILLITIS 07/18/2021 resolved 94032186 SNOMED- CT TMJ SYNDROME 07/18/2021 resolved 654098985 SNOMED -CT FIBROMYALGIA 07/18/2021 resolved 255376792 SNOMED -CT 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 76455514 SNOMED -CT 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 87808709 SNOMED-CT ANXIETY 07/18/2021 resolved 37409596 SNOMED-CT DEPRESSION 07/18/2021 resolved 14842954 SNOMED-C T ACID REFLUX 07/18/2021 resolved 837696186 SNOMED- CT CHRONIC PAIN 07/18/2021 resolved 57430382 SNOMED -CT HYPERTENSION 07/18/2021 resolved 26212420 SNOMED -CT Allergies and Adverse Reactions Allergy Substance Reaction Severity Start Date Concern Status Code Code System SULFA (sulfonamide) Vomiting (SNOMED-CT: 368836882) Active 79855596 SNOMED-CT PENICILLIN G Hives (SNOMED-CT: 504279308) Moderate Active 7980 RxNorm SHELLFISH Anaphylaxis (SNOMED-CT: 45173354) Active 830265012 SNOMED-CT FISH PROTEIN Anaphylaxis (SNOMED-CT: 47319456) Active 06260542 SNOMED-CT TOPAMAX Active 590020 RxNorm Plan of Treatment MM SCREEN BILAT 07/02/2022 PRE-OP COVID-19 TESTING 08/13/2021 MM SCREEN BILAT 05/28/2021 Encounters Encounter Diagnosis Start Date Code Code Sys tem Injury of shoulder and upper arm 08/08/2021 71926212 6 SNOMED-CT Personal Care Team Section Performer Name Performer Role Active Date Inactive Da te
--- OUTSIDE RECORDS SUMMARY | 2024-02-23 17:21 | XMS_ITS | Encounter Summary ---
Author Organization [facility] [place] [address] Care Team Providers Care Financial Underwriter Name Role Phone Diya Gifford MD Primary Care Provider [phone] Encounter Details Date Type Department Care Team (Late st Contact Info) Description 04/07/2020 10:15 AM EDT Public [facility] Public Health [facility] [place] [address] COVID-19; COVID-19 ruled out Social History Tobacco Use Types Packs/Day Years Used Date Smoking Tobacco: Never Smokeless Tobacco: Never Sex and Gender Information Value Date Recorded Sex Assigned at Not on file Gender Identity Not on file Sexual Orientation Not on file documented as of this encounter Plan of Treatment Not on file documented as of this encounter Procedures Procedure Name Priority Date/Time Associated Diagnosis Comments COVID-19 PCR STAT 04/07/2020 12:48 PM EDT COVID-19 ruled out documented in this encounter Results * COVID-19 PCR (04/07/2020 12:48 PM EDT) SARS-CoV-2 RNA Not Detected Not Detected [facility] Comment: This result should be interpreted in combination with the clinical observations, patient history and epidemiological information in making a final diagnosis. For testing of asymptomatic individuals, assay performance characteristics and clinical utility have not been evaluated. Testing for SARS-CoV-2 (Severe acute respiratory syndrome coronavirus 2, formerly known as 2019 novel coronavirus or 2019-nCoV) to aid in the diagnosis of COVID-19 is performed using the [employer] m SARS-CoV-2 Assay as authorized by the FDA Emergency Use Authorization (EUA). This EUA assay is intended for In-vitro Diagnostic (IVD) use with respiratory specimens such as nasopharyngeal swabs collected from individuals during the acute phase of infection. This assay is performed based on the instructions for use provided by [employer] and additional guidance provided by CDC and FDA. Testing is performed in the [facility] within the Department of Pathology and Laboratory Medicine at [facility], certified under the Clinical Laboratory Improvement Amendments of 1988 (CLIA), 42 U.S.C. 263a, to perform high complexity tests. Assay performance has been verified according to clinical laboratory regulatory requirements for use with specimens collected from individuals suspected of COVID-19. Test results are provided above. A result of ? Not Detected? indicates that the viral RNA target is not present above the limit of detection, but does not preclude SARS-CoV-2 infection. False negative results may occur if a specimen is improperly collected, transported or handled; if amplification inhibitors are present; or if inadequate numbers of viral particles are present in the specimen. When a diagnostic test is negative, the possibility of a false negative result should be considered in the context of a patient? s recent exposures and the presence of clinical signs and symptoms consistent with COVID-19. A result of ? Detected? indicates that RNA from SARS-CoV-2 was detected and the patient is infected. As required or requested by public health authorities, positive specimens may be sent for additional testing. Positive and negative predictive values for this test are highly dependent on disease prevalence. A result of ? Invalid? indicates that neither the viral RNA targets nor the internal control target was detected. An invalid result suggests the presence of inhibitors. Recollection and re-testing is recommended in the case of an invalid result. CDC COVID-19 criteria for testing on human specimens and clinical management guidance information are available at the CDC Coronavirus Disease 2019 (COVID-19) webpage under ? Information for Healthcare Professionals? (https://www.cdc.gov/coronavirus/2019-ncov/hcp/index.html) Additional information about this and other EUA tests can be found in provider and patient fact sheets at the following FDA website: https://www.fda.gov/medical-devices/pfgscrqpecz-ntopybf-5741-qncbk-54-kukfdnuqj- use-a nrmvdgxstvcza-astjoja-phqjovk/vjhwz-mkxcnricslz-urng SARS-CoV-2 RNA Source STACK MATCHER Swab [facility] Nasopharyngeal swab (specimen) 04/07/2020 12:48 PM EDT 04/07/2020 12:48 PM EDT Comment:Symptoms->Asymptomat ic Narrative Resulting Agency Comment Spec In Lab Mau Ochoa MD MOLECULAR ORDERABLES [facility] [place] [address] documented in this encounter Visit Diagnoses Diagnosis COVID-19 COVID-19 ruled out documented in this encounter Care Teams Financial Underwriter Relationship Specialty Start Date End Date Diya Gifford MD [address] [place] [address] PCP - General Family Medicine 08/18/19 documented as of this encounter
--- OUTSIDE RECORDS SUMMARY | 2024-02-23 17:21 | XMS_ITS | Encounter Summary ---
[place] [address] Care Team Providers Care Booth Operator Name Role Phone Diya Gifford MD Primary Care Provider [phone] Encounter Details Date Type Department Care Team (Latest Contact Info) Description 05/14/2022 Travel Social History Tobacco Use Types Packs/Day [...] on filedocumented in this encounter Care Teams Booth Operator Relationship Specialty Start Date End Date Diya Gifford MD [address] [place] [address] PCP - General Family Medicine 08/18/19 documented as of this encounter
--- OUTSIDE RECORDS SUMMARY | 2024-02-23 17:22 | XMS_ITS ---
Author Organization Unknown Address [address] [place] [address] [phone] Phone Care Team Providers Care Weights And Measures Sealer Name Role Phone KATIE West Attending Unavailable RADHIKA Dhillon Primary Unavailable Social History Type Status Start Date End Date Code Code Syst em Smoking History Never smoker (Never Smoked) 084742938 SNOMED CT Sex Female Medications Medication Start Date End Date Route Frequency Dose Code Code System Medication Instructions Home Meds Amitriptyline HCl 100MG Oral Tablet 07/19/2021 Unknown ORAL BEDTIME 100 MILLIGRAMS 822371 RxNorm TAKE 100 MILLIGRAMS ORAL BEDTIME Cyclobenzaprine 10MG Oral Tablet 07/19/2021 Unknown ORAL NEEDED THREE TIMES A DAY 10 MILLIGRAMS 761321 RxNorm TAKE 10 MILLIGRAMS ORAL NEEDED THREE TIMES A DAY Doxycycline 100MG Oral Capsule 07/19/2021 Unknown ORAL BEDTIME 100 MILLIGRAMS 2814749 RxNorm TAKE 100 MILLIGRAMS ORAL BEDTIME Gabapentin 800MG Oral Tablet 07/19/2021 Unknown ORAL BEDTIME 800 MILLIGRAMS 663655 RxNorm TAKE 800 MILLIGRAMS ORAL BEDTIME Loratadine 10MG Oral Tablet 07/19/2021 Unknown ORAL NEEDED DAILY 10 MILLIGRAMS 565017 RxNorm TAKE 10 MILLIGRAMS ORAL NEEDED DAILY Metoprolol Succinate 100MG Oral Tablet, Extended Release 07/19/2021 Unknown ORAL BEDTIME 100 MILLIGRAMS 353318 RxNorm TAKE 100 MILLIGRAMS ORAL BEDTIME Omeprazole 40MG Oral Capsule, Delayed Release 07/19/2021 Unknown ORAL BEDTIME 40 MILLIGRAMS 20020807 RxNorm TAKE 40 MILLIGRAMS ORAL BEDTIME Percocet 5MG-325MG Oral Tablet 07/19/2021 Unknown ORAL NEEDED THREE TIMES A DAY 1 unit(s) 5089205 RxNorm TAKE 1 EACH ORAL NEEDED THREE TIMES A DAY SF 5000 Plus 1.1% Dental Cream 07/19/2021 Unknown DENTAL NEEDED 1 unit(s) 650861 RxNorm 1 EACH DENTAL NEEDED Venlafaxine HCl 150MG Oral Capsule, Extended Release 07/19/2021 Unknown ORAL BEDTIME 150 MILLIGRAMS 715228 RxNorm TAKE 150 MILLIGRAMS ORAL BEDTIME Venlafaxine HCl 37.5MG Oral Tablet 07/19/2021 Unknown ORAL BEDTIME 37.5 MILLIGRAMS 939604 RxNorm TAKE 37.5 MILLIGRAMS ORAL BEDTIME Voltaren Gel 1% Topical application Gel/Jelly 07/19/2021 Unknown TOPICA L APPLIC ATION TWICE A DAY 1 unit(s) 379252 RxNorm 1 EACH TOPICAL APPLICATION TWICE A DAY Zolpidem Tartrate 12.5MG Oral Tablet, Extended Release 07/19/2021 Unknown ORAL NEEDED AT BEDTIME 12.5 MILLIGRAMS 231968 RxNorm TAKE 12.5 MILLIGRAMS ORAL NEEDED AT BEDTIME diphenhydrAMINE HCl 25MG Oral Capsule 07/19/2021 Unknown ORAL DAILY 25 MILLIGRAMS 9273597 RxNorm TAKE 25 MILLIGRAMS ORAL DAILY hydrOXYzine HCl 25MG Oral Tablet 07/19/2021 Unknown ORAL TWICE A DAY 75 MILLIGRAMS 985355 RxNorm TAKE 75 MILLIGRAMS ORAL TWICE A DAY hydroCHLOROthia zide 12.5MG Oral Tablet 07/19/2021 Unknown ORAL BEDTIME 12.5 MILLIGRAMS 828448 RxNorm TAKE 12.5 MILLIGRAMS ORAL BEDTIME Percocet 5MG-325MG Oral Tablet 09/18/2022 Unknown ORAL NEEDED EVERY 4 HOURS 5122699 RxNorm TAKE 1-2 TABLET ORAL NEEDED EVERY 4 HOURS Flomax 0.4MG Oral Capsule 09/18/2022 Unknown ORAL DAILY 1 CAPSULE 966626 RxNorm TAKE 1 CAPSULE ORAL DAILY UNTIL STONE PASSES Ibuprofen 200MG Oral Tablet 09/18/2022 Unknown ORAL EVERY 6 HOURS 3 TABLET 268424 RxNorm TAKE 3 TABLET ORAL EVERY 6 [...] Date Status Code Code System HYPERTENSION active 94899161 SNOMED- CT PTSD active 22647674 SNOMED-CT SYNCOPE active 293594512 SNOMED-CT CHEST PAIN active 12566118 SNOMED-CT WEAKNESS active 08165084 SNOMED-CT URETEROLITHIASIS active 88552820 SNO MED-CT MIGRAINE 07/18/2021 resolved 09190660 SNOMED-CT CARPAL TUNNEL 07/18/2021 resolved 87917651 SNOME D-CT CHRONIC PAIN 07/18/2021 resolved 56255171 SNOMED -CT TONSILLITIS 07/18/2021 resolved 57948381 SNOMED- CT TMJ SYNDROME 07/18/2021 resolved 151836567 SNOMED -CT FIBROMYALGIA 07/18/2021 resolved 982372888 SNOMED -CT 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 00088898 SNOMED -CT 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 65713479 SNOMED-CT ANXIETY 07/18/2021 resolved 15749901 SNOMED-CT DEPRESSION 07/18/2021 resolved 33706708 SNOMED-C T ACID REFLUX 07/18/2021 resolved 741858677 SNOMED- CT CHRONIC PAIN 07/18/2021 resolved 80282864 SNOMED -CT HYPERTENSION 07/18/2021 resolved 38428305 SNOMED -CT Allergies and Adverse Reactions Allergy Substance Reaction Severity Start Date Concern Status Code Code System SULFA (sulfonamide) Vomiting (SNOMED-CT: 257762444) Active 85401309 SNOMED-CT PENICILLIN G Hives (SNOMED-CT: 606205405) Moderate Active 7980 RxNorm SHELLFISH Anaphylaxis (SNOMED-CT: 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
--- OUTSIDE RECORDS SUMMARY | 2024-02-23 17:22 | XMS_ITS ---
Author Organization Unknown Address [address] [place] [address] [phone] Phone Care Team Providers Care Wire Strander Name Role Phone LOLI Heart Attending Unavailable RADHIKA Dhillon Primary Unavailable Social History Type Status Start Date End Date Code Code Syst em Smoking History Never smoker (Never Smoked) 681850820 SNOMED CT Sex Female Medications Medication Start Date End Date Route Frequency Dose Code Code System Medication Instructions Home Meds hydrOXYzine Pamoate 25MG Oral Capsule 05/12/2016 07/18/2021 ORAL TWICE A DAY 25 MILLIGRAMS 180341 RxNorm TAKE 25 MILLIGRAMS ORAL TWICE A DAY Amitriptyline 100MG Oral Tablet 05/12/2016 07/18/2021 ORAL EVERY EVENING 100 MILLIGRAMS 534462 RxNorm TAKE 100 MILLIGRAMS ORAL EVERY EVENING Famotidine 20MG Oral Tablet 01/11/2019 07/18/2021 ORAL TWICE A DAY 20 MILLIGRAMS 700377 RxNorm TAKE 20 MILLIGRAMS ORAL TWICE A DAY Gabapentin 800MG Oral Tablet 01/11/2019 07/18/2021 ORAL FOUR TIMES A DAY 800 MILLIGRAMS 341641 RxNorm TAKE 800 MILLIGRAMS ORAL FOUR TIMES A DAY Metoprolol Succinate 100MG Oral Tablet, Extended Release 01/11/2019 07/18/2021 ORAL DAILY 100 MILLIGRAMS 407350 RxNorm TAKE 100 MILLIGRAMS ORAL DAILY PERCOCET 5MG-325MG ORAL TABLET 01/11/2019 07/18/2021 ORAL THREE TIMES A DAY 1 TABLET RxNorm TAKE 1 TABLET ORAL THREE TIMES A DAY Amitriptyline HCl 100MG Oral Tablet 07/19/2021 Unknown ORAL BEDTIME 100 MILLIGRAMS 179899 RxNorm TAKE 100 MILLIGRAMS ORAL BEDTIME Cyclobenzapri ne 10MG Oral Tablet 07/19/2021 Unknown ORAL NEEDED THREE TIMES A DAY 10 MILLIGRAMS 893392 RxNorm TAKE 10 MILLIGRAMS ORAL NEEDED THREE TIMES A DAY Doxycycline 100MG Oral Capsule 07/19/2021 Unknown ORAL BEDTIME 100 MILLIGRAMS 8571942 RxNorm TAKE 100 MILLIGRAMS ORAL BEDTIME Gabapentin 800MG Oral Tablet 07/19/2021 Unknown ORAL BEDTIME 800 MILLIGRAMS 692167 RxNorm TAKE 800 MILLIGRAMS ORAL BEDTIME Loratadine 10MG Oral Tablet 07/19/2021 Unknown ORAL NEEDED DAILY 10 MILLIGRAMS 421840 RxNorm TAKE 10 MILLIGRAMS ORAL NEEDED DAILY Metoprolol Succinate 100MG Oral Tablet, Extended Release 07/19/2021 Unknown ORAL BEDTIME 100 MILLIGRAMS 554528 RxNorm TAKE 100 MILLIGRAMS ORAL BEDTIME Omeprazole 40MG Oral Capsule, Delayed Release 07/19/2021 Unknown ORAL BEDTIME 40 MILLIGRAMS 513287 RxNorm TAKE 40 MILLIGRAMS ORAL BEDTIME Percocet 5MG-325MG Oral Tablet 07/19/2021 Unknown ORAL NEEDED THREE TIMES A DAY 1 unit(s) 8583130 RxNorm TAKE 1 EACH ORAL NEEDED THREE TIMES A DAY SF 5000 Plus 1.1% Dental Cream 07/19/2021 Unknown DENTAL NEEDED 1 unit(s) 160282 RxNorm 1 EACH DENTAL NEEDED Venlafaxine HCl 150MG Oral Capsule, Extended Release 07/19/2021 Unknown ORAL BEDTIME 150 MILLIGRAMS 021757 RxNorm TAKE 150 MILLIGRAMS ORAL BEDTIME Venlafaxine HCl 37.5MG Oral Tablet 07/19/2021 Unknown ORAL BEDTIME 37.5 MILLIGRAMS 450102 RxNorm TAKE 37.5 MILLIGRAMS ORAL BEDTIME Voltaren Gel 1% Topical application Gel/Jelly 07/19/2021 Unknown TOPICA L APPLIC ATION TWICE A DAY 1 unit(s) 996787 RxNorm 1 EACH TOPICAL APPLICATION TWICE A DAY Zolpidem Tartrate 12.5MG Oral Tablet, Extended Release 07/19/2021 Unknown ORAL NEEDED AT BEDTIME 12.5 MILLIGRAMS 045467 RxNorm TAKE 12.5 MILLIGRAMS ORAL NEEDED AT BEDTIME diphenhydrAMI NE HCl 25MG Oral Capsule 07/19/2021 Unknown ORAL DAILY 25 MILLIGRAMS 9691057 RxNorm TAKE 25 MILLIGRAMS ORAL DAILY hydrOXYzine HCl 25MG Oral Tablet 07/19/2021 Unknown ORAL TWICE A DAY 75 MILLIGRAMS 543182 RxNorm TAKE 75 MILLIGRAMS ORAL TWICE A DAY hydroCHLOROth iazide 12.5MG Oral Tablet 07/19/2021 Unknown ORAL BEDTIME 12.5 MILLIGRAMS 061816 RxNorm TAKE 12.5 MILLIGRAMS ORAL BEDTIME Percocet 5MG-325MG Oral Tablet 09/18/2022 Unknown ORAL NEEDED EVERY 4 HOURS 6123078 RxNorm TAKE 1-2 TABLET ORAL NEEDED EVERY 4 HOURS Flomax 0.4MG Oral Capsule 09/18/2022 Unknown ORAL DAILY 1 CAPSULE 335807 RxNorm TAKE 1 CAPSULE ORAL DAILY UNTIL STONE PASSES Ibuprofen 200MG Oral Tablet 09/18/2022 Unknown ORAL EVERY 6 HOURS 3 TABLET 775586 RxNorm TAKE 3 TABLET ORAL EVERY 6 [...] Date Status Code Code System HYPERTENSION active 26465199 SNOMED- CT PTSD active 84840822 SNOMED-CT SYNCOPE active 343423299 SNOMED-CT CHEST PAIN active 35465005 SNOMED-CT WEAKNESS active 26381093 SNOMED-CT URETEROLITHIASIS active 97391990 SNO MED-CT MIGRAINE 07/18/2021 resolved 79692569 SNOMED-CT CARPAL TUNNEL 07/18/2021 resolved 94197687 SNOME D-CT CHRONIC PAIN 07/18/2021 resolved 51078056 SNOMED -CT TONSILLITIS 07/18/2021 resolved 90944287 SNOMED- CT TMJ SYNDROME 07/18/2021 resolved 913973184 SNOMED -CT FIBROMYALGIA 07/18/2021 resolved 147339886 SNOMED -CT 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 74135267 SNOMED -CT 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 81070416 SNOMED-CT ANXIETY 07/18/2021 resolved 48018728 SNOMED-CT DEPRESSION 07/18/2021 resolved 88955291 SNOMED-C T ACID REFLUX 07/18/2021 resolved 609058172 SNOMED- CT CHRONIC PAIN 07/18/2021 resolved 76428947 SNOMED -CT HYPERTENSION 07/18/2021 resolved 18520358 SNOMED -CT Allergies and Adverse Reactions Allergy Substance Reaction Severity Start Date Concern Status Code Code System SULFA (sulfonamide) Vomiting (SNOMED-CT: 368003697) Active 16752033 SNOMED-CT PENICILLIN G Hives (SNOMED-CT: 437479996) Moderate Active 7980 RxNorm SHELLFISH Anaphylaxis (SNOMED-CT: 02253466) Active 643368898 SNOMED-CT FISH PROTEIN Anaphylaxis (SNOMED-CT: 76862016) Active 59885053 SNOMED-CT TOPAMAX Active 179179 RxNorm Plan of Treatment MM SCREEN BILAT 07/02/2022 PRE-OP COVID-19 TESTING 08/13/2021 MM SCREEN BILAT 05/28/2021 Encounters Encounter Diagnosis Start Date Code Code Sys tem Syncope and collapse 07/18/2021 SNOMED- CT Personal Care Team Section Performer Name Performer Role Active Date Inactive Da te
--- OUTSIDE RECORDS SUMMARY | 2024-02-23 17:23 | XMS_ITS ---
Author Organization Unknown Address [address] [place] [phone] Phone Care Team Providers Care Environmental Control Administrator Name Role Phone JENNIFER FARMER Registered Nurse Unavailable ELA White Attending Unavailable RADHIKA Dhillon Primary Unavailable UNLISTED PROVIDER - REQUESTED Xhandoff Un available Results BASIC METABOLIC PANEL (BMP) - Collect Date/Time: 09/18/2022 05:05 [facility] ID: [id number] [address] [place], [place], [address] LOINC: 11810-0 Test Value Unit Reference Range Code Code System Flag GLUCOSE 114 mg/dL L=70 H=116 2345-7 LOINC BUN 11 mg/dL L=6 H=25 3094-0 LOINC CREATININE 1.08 mg/dL L=0.51 H=0.95 2160-0 LOINC H SODIUM SERUM 139 mmol/L L=136 H=145 2951-2 LOINC POTASSIUM SERUM 4.0 mmol/L L=3.4 H=5.2 2823-3 LOINC CHLORIDE SERUM 103 mmol/L L=96 H=110 2075-0 LOINC CARBON DIOXIDE (CO2) 28 mmol/L L=22 H=34 2028-9 LOINC ANION GAP 8.5 mmol/L 41107-0 LOINC CALCIUM SERUM 8.8 mg/dL L=8.2 H=10.2 32836-7 LOINC AGE 47 years eGFR (non-Afr.Amer.) 54 mL/min 23536-6 LOINC eGFR (Afr-Malaysian) 66 mL/min 85253-5 LOINC CBC W/ DIFFERENTIAL* - Colle ct Date/Time: 09/18/2022 05:05 [facility] ID: [id number] [address] [place], [place], [address] LOINC: 68384-1 Test Value Unit Reference Range Code Code System Flag WBC 10.47 th/cmm L=5.00 H=10.00 6690-2 LOINC H NEUT % 58.7 % L=40.0 H=80.0 LYMPH % 30.5 % L=10.0 H=50.0 MONO % 8.1 % L=2.0 H=12.0 94810-9 LOINC EOS % 1.5 % L=0.0 H=8.0 BASO % 0.6 % L=0.0 H=3.0 IG % 0.6 % L=0.0 H=1.1 2514-8 LOINC NRBC % 0.0 % L=0.0 H=0.0 81029-3 LOINC NEUT abs count 6.2 th/cmm L=1.6 H=8.4 751-8 LOINC LYMPH abs count 3.2 th/cmm L=1.5 H=4.0 731-0 LOINC MONO abs count 0.9 th/cmm L=0.2 H=1.0 742-7 LOINC EOS abs count 0.2 th/cmm L=0.0 H=0.5 711-2 LOINC BASO abs count 0.1 th/cmm L=0.0 H=0.2 704-7 LOINC IG abs count 0.1 th/cmm L=0.0 H=0.1 81933-7 LOINC NRBC abs count 0.0 mil/cmm L=0.0 H=0.0 10942-0 LOINC RBC 4.81 mil/cmm L=3.90 H=5.40 789-8 LOINC HEMOGLOBIN 14.8 gm/dL L=12.0 H=16.0 718-7 LOINC HEMATOCRIT 46 % L=37 H=47 4544-3 LOINC MCV 95 fL L=82 H=92 787-2 LOINC H MCH 30.8 pg L=27.0 H=31.0 785-6 LOINC MCHC 32.4 % L=32.0 H=36.0 786-4 LOINC RDW-SD 46.5 fL L=39.0 H=49.0 788-0 LOINC PLATELET COUNT 318 th/cmm L=150 H=450 777-3 LOINC URINALYSIS ROUTINE* - [facility] t Date/Time: 09/18/2022 05:03 [facility] ID: [id number] [address] [place], [place], [address] LOINC: Test Value Unit Reference Range Code Code System Flag COLLECTION MODE: CLEAN CATCH 69899-3 LOINC Color YELLOW yellow 5778-6 LOINC Appearance CLEAR clear 5767-9 LOINC Glucose urine NEGATIVE negative mg/dl 68207-8 LOINC Bilirubin NEGATIVE negative 5770-3 LOINC Ketones NEGATIVE negative mg/dl 2514-8 LOINC Spec gravity >=1.030 1.003 - 1.030 5811-5 LOINC pH urine 6.5 5.0 - 7.0 2756-5 LOINC Protein TRACE negative mg/dl 02764-8 LOINC Urobilinogen 0.2 <or= 1 EU/dl 13487-8 LOINC Nitrite NEGATIVE negative 5802-4 LOINC Blood SMALL negative 5794-3 LOINC A Leukocytes NEGATIVE negative 61037-3 LOINC MICROSCOPIC* INDICATED WBCs 0-5 0-5 / hpf 55739-6 LOINC RBCs 5-10 0-5 / hpf 38226-4 LOINC Epith cells 0-5 0-5 / hpf 68020-5 LOINC Cell types squamous Crystals none none Bacteria minimal none Mucus present none 8247-9 LOINC Casts none none /lpf 65125-6 LOINC Other 84165-7 LOINC Social History Type Status Start Date End Date Code Code Syst em Smoking History Never smoker (Never Smoked) 516636549 SNOMED CT Sex Female Vital Signs Vital Sign Value Unit Dolores Value Dolores Unit Date/Time Recent/Initial? Code Code System Body Mass Index 39.06 kg/m2 09/18/2022 04:47 Initial 96034 -5 LOINC Systolic Blood Pressure 158 mm[Hg] 09/18/2022 04:47 Initial 8480- 6 LOINC Diastolic Blood Pressure 110 mm[Hg] 09/18/2022 04:47 Initial 8462- 4 [facility] Body Surface Area 1.96 m2 09/18/2022 04:47 Initial 3140- 1 LOINC Height 152.400 0 cm 60.00 in 09/18/2022 04:47 Initial 8302- 2 INC O2 Saturation 99 % 2022 04:47 Initial 97242 -5 [facility] Pulse 92.0 /min 09/18/2022 04:47 Initial 8867- 4 LOINC Respiration 18 /min 09/19/19 04:47 Initial 9279- 1 INC Temperature 36.2 Thi 97.2 F 09/19/19 04:47 Initial 8310- 5 [facility] Weight 90.72 kg 200.00 lbs 09/18/2022 04:47 Initial 78622 -7 [facility] Medications Medication Start Date End Date Route Frequency Dose Code Code System Medication Instructions Home Meds Amitriptyline HCl 100MG Oral Tablet 07/19/2021 Unknown ORAL BEDTIME 100 MILLIGRAMS 686508 RxNorm TAKE 100 MILLIGRAMS ORAL BEDTIME Cyclobenzaprine 10MG Oral Tablet 07/19/2021 Unknown ORAL NEEDED THREE TIMES A DAY 10 MILLIGRAMS 100792 RxNorm TAKE 10 MILLIGRAMS ORAL NEEDED THREE TIMES A DAY Doxycycline 100MG Oral Capsule 07/19/2021 Unknown ORAL BEDTIME 100 MILLIGRAMS 0451001 RxNorm TAKE 100 MILLIGRAMS ORAL BEDTIME Gabapentin 800MG Oral Tablet 07/19/2021 Unknown ORAL BEDTIME 800 MILLIGRAMS 555640 RxNorm TAKE 800 MILLIGRAMS ORAL BEDTIME Loratadine 10MG Oral Tablet 07/19/2021 Unknown ORAL NEEDED DAILY 10 MILLIGRAMS 811971 RxNorm TAKE 10 MILLIGRAMS ORAL NEEDED DAILY Metoprolol Succinate 100MG Oral Tablet, Extended Release 07/19/2021 Unknown ORAL BEDTIME 100 MILLIGRAMS 155718 RxNorm TAKE 100 MILLIGRAMS ORAL BEDTIME Omeprazole 40MG Oral Capsule, Delayed Release 07/19/2021 Unknown ORAL BEDTIME 40 MILLIGRAMS 667424 RxNorm TAKE 40 MILLIGRAMS ORAL BEDTIME Percocet 5MG-325MG Oral Tablet 07/19/2021 Unknown ORAL NEEDED THREE TIMES A DAY 1 unit(s) 9083504 RxNorm TAKE 1 EACH ORAL NEEDED THREE TIMES A DAY SF 5000 Plus 1.1% Dental Cream 07/19/2021 Unknown DENTAL NEEDED 1 unit(s) 681111 RxNorm 1 EACH DENTAL NEEDED Venlafaxine HCl 150MG Oral Capsule, Extended Release 07/19/2021 Unknown ORAL BEDTIME 150 MILLIGRAMS 235678 RxNorm TAKE 150 MILLIGRAMS ORAL BEDTIME Venlafaxine HCl 37.5MG Oral Tablet 07/19/2021 Unknown ORAL BEDTIME 37.5 MILLIGRAMS 851008 RxNorm TAKE 37.5 MILLIGRAMS ORAL BEDTIME Voltaren Gel 1% Topical application Gel/Jelly 07/19/2021 Unknown TOPICA L APPLIC ATION TWICE A DAY 1 unit(s) 644919 RxNorm 1 EACH TOPICAL APPLICATION TWICE A DAY Zolpidem Tartrate 12.5MG Oral Tablet, Extended Release 07/19/2021 Unknown ORAL NEEDED AT BEDTIME 12.5 MILLIGRAMS 135659 RxNorm TAKE 12.5 MILLIGRAMS ORAL NEEDED AT BEDTIME diphenhydrAMINE HCl 25MG Oral Capsule 07/19/2021 Unknown ORAL DAILY 25 MILLIGRAMS 0688582 RxNorm TAKE 25 MILLIGRAMS ORAL DAILY hydrOXYzine HCl 25MG Oral Tablet 07/19/2021 Unknown ORAL TWICE A DAY 75 MILLIGRAMS 868598 RxNorm TAKE 75 MILLIGRAMS ORAL TWICE A DAY hydroCHLOROthia zide 12.5MG Oral Tablet 07/19/2021 Unknown ORAL BEDTIME 12.5 MILLIGRAMS 823665 RxNorm TAKE 12.5 MILLIGRAMS ORAL BEDTIME Percocet 5MG-325MG Oral Tablet 09/18/2022 Unknown ORAL NEEDED EVERY 4 HOURS 4587712 RxNorm TAKE 1-2 TABLET ORAL NEEDED EVERY 4 HOURS Flomax 0.4MG Oral Capsule 09/18/2022 Unknown ORAL DAILY 1 CAPSULE 935924 RxNorm TAKE 1 CAPSULE ORAL DAILY UNTIL STONE PASSES Ibuprofen 200MG Oral Tablet 09/18/2022 Unknown ORAL EVERY 6 HOURS 3 TABLET 495195 RxNorm TAKE 3 TABLET ORAL EVERY 6 [...] Date Status Code Code System HYPERTENSION active 88218254 SNOMED- CT PTSD active 59649242 SNOMED-CT SYNCOPE active 724867053 SNOMED-CT CHEST PAIN active 43134785 SNOMED-CT WEAKNESS active 01693652 SNOMED-CT URETEROLITHIASIS active 04225679 SNO MED-CT MIGRAINE 07/18/2021 resolved 71642561 SNOMED-CT CARPAL TUNNEL 07/18/2021 resolved 64434822 SNOME D-CT CHRONIC PAIN 07/18/2021 resolved 21702677 SNOMED -CT TONSILLITIS 07/18/2021 resolved 95464369 SNOMED- CT TMJ SYNDROME 07/18/2021 resolved 408378720 SNOMED -CT FIBROMYALGIA 07/18/2021 resolved 900850188 SNOMED -CT 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 55256774 SNOMED -CT 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 29131496 SNOMED-CT ANXIETY 07/18/2021 resolved 10657575 SNOMED-CT DEPRESSION 07/18/2021 resolved 82093976 SNOMED-C T ACID REFLUX 07/18/2021 resolved 873013902 SNOMED- CT CHRONIC PAIN 07/18/2021 resolved 87772381 SNOMED -CT HYPERTENSION 07/18/2021 resolved 75397093 SNOMED -CT Allergies and Adverse Reactions Allergy Substance Reaction Severity Start Date Concern Status Code Code System SULFA (sulfonamide) Vomiting (SNOMED-CT: 776616262) Active 56394344 SNOMED-CT PENICILLIN G Hives (SNOMED-CT: 281216825) Moderate Active 7980 RxNorm SHELLFISH Anaphylaxis (SNOMED-CT: 16116302) Active 849413539 SNOMED-CT FISH PROTEIN Anaphylaxis (SNOMED-CT: 03082152) Active 82560862 SNOMED-CT TOPAMAX Active 458474 RxNorm Plan of Treatment MM SCREEN BILAT 07/02/2022 PRE-OP COVID-19 TESTING 08/13/2021 MM SCREEN BILAT 05/28/2021 OUTPATIENT PLAN: Discharge Medications Medication Dosage Route Frequency Prescribing MD Special Instructions Percocet 5MG-325MG Oral Tablet ORAL NEEDED EVERY 4 HOURS ELA White TAKE 1-2 TABLET ORAL NEEDED EVERY 4 HOURS Flomax 0.4MG Oral Capsule 1 CAPSULE ORAL DAILY ELA White TAKE 1 CAPSULE ORAL DAILY UNTIL STONE PASSES Ibuprofen 200MG Oral Tablet ([id number]) 3 TABLET ORAL EVERY 6 HOURS ELA White TAKE 3 TABLET ORAL EVERY 6 HOURS NEEDED FOR PAIN UNTIL STONE PASSES Your prescription was printed. Follow up: Please see your primary or Doctor Quentin in 3-5 days if stone hasn't passed. Other Instructions: Increase fluids. Encounters Encounter Diagnosis Start Date Code Code Sys tem Calculus of ureter 09/18/2022 SNOMED-CT Personal Care Team Section Performer Name Performer Role Active Date Inactive Da te
--- OUTSIDE RECORDS SUMMARY | 2024-02-23 17:23 | XMS_ITS ---
Author Organization Unknown Address [address] [place] [phone] Phone Care Team Providers Care Fifth Hand Name Role Phone [facility] Heart Attending Unavailable RADHIKA Dhillon Primary Unavailable Results GRAM STAIN* - Collect Date/T herb: 07/16/2022 11:35 [facility] ID: [id number] [address] [place] [address], [id number] LOINC: 664-3 Test Value Unit Reference Range Code Code System Flag SOURCE- Other WBC s none seen [employer] No bacteria seen Social History Type Status Start Date End Date Code Code Syst em Smoking History Never smoker (Never Smoked) 699277092 SNOMED CT Sex Female Medications Medication Start Date End Date Route Frequency Dose Code Code System Medication Instructions Home Meds Amitriptyline HCl 100MG Oral Tablet 07/19/2021 Unknown ORAL BEDTIME 100 MILLIGRAMS 699828 RxNorm TAKE 100 MILLIGRAMS ORAL BEDTIME Cyclobenzaprine 10MG Oral Tablet 07/19/2021 Unknown ORAL NEEDED THREE TIMES A DAY 10 MILLIGRAMS 530885 RxNorm TAKE 10 MILLIGRAMS ORAL NEEDED THREE TIMES A DAY Doxycycline 100MG Oral Capsule 07/19/2021 Unknown ORAL BEDTIME 100 MILLIGRAMS 9743322 RxNorm TAKE 100 MILLIGRAMS ORAL BEDTIME Gabapentin 800MG Oral Tablet 07/19/2021 Unknown ORAL BEDTIME 800 MILLIGRAMS 800453 RxNorm TAKE 800 MILLIGRAMS ORAL BEDTIME Loratadine 10MG Oral Tablet 07/19/2021 Unknown ORAL NEEDED DAILY 10 MILLIGRAMS 243871 RxNorm TAKE 10 MILLIGRAMS ORAL NEEDED DAILY Metoprolol Succinate 100MG Oral Tablet, Extended Release 07/19/2021 Unknown ORAL BEDTIME 100 MILLIGRAMS 978482 RxNorm TAKE 100 MILLIGRAMS ORAL BEDTIME Omeprazole 40MG Oral Capsule, Delayed Release 07/19/2021 Unknown ORAL BEDTIME 40 MILLIGRAMS 629227 RxNorm TAKE 40 MILLIGRAMS ORAL BEDTIME Percocet 5MG-325MG Oral Tablet 07/19/2021 Unknown ORAL NEEDED THREE TIMES A DAY 1 unit(s) 7802101 RxNorm TAKE 1 EACH ORAL NEEDED THREE TIMES A DAY SF 5000 Plus 1.1% Dental Cream 07/19/2021 Unknown DENTAL NEEDED 1 unit(s) 811738 RxNorm 1 EACH DENTAL NEEDED Venlafaxine HCl 150MG Oral Capsule, Extended Release 07/19/2021 Unknown ORAL BEDTIME 150 MILLIGRAMS 307602 RxNorm TAKE 150 MILLIGRAMS ORAL BEDTIME Venlafaxine HCl 37.5MG Oral Tablet 07/19/2021 Unknown ORAL BEDTIME 37.5 MILLIGRAMS 770263 RxNorm TAKE 37.5 MILLIGRAMS ORAL BEDTIME Voltaren Gel 1% Topical application Gel/Jelly 07/19/2021 Unknown TOPICA L APPLIC ATION TWICE A DAY 1 unit(s) 708879 RxNorm 1 EACH TOPICAL APPLICATION TWICE A DAY Zolpidem Tartrate 12.5MG Oral Tablet, Extended Release 07/19/2021 Unknown ORAL NEEDED AT BEDTIME 12.5 MILLIGRAMS 202847 RxNorm TAKE 12.5 MILLIGRAMS ORAL NEEDED AT BEDTIME diphenhydrAMINE HCl 25MG Oral Capsule 07/19/2021 Unknown ORAL DAILY 25 MILLIGRAMS 6473442 RxNorm TAKE 25 MILLIGRAMS ORAL DAILY hydrOXYzine HCl 25MG Oral Tablet 07/19/2021 Unknown ORAL TWICE A DAY 75 MILLIGRAMS 620778 RxNorm TAKE 75 MILLIGRAMS ORAL TWICE A DAY hydroCHLOROthia zide 12.5MG Oral Tablet 07/19/2021 Unknown ORAL BEDTIME 12.5 MILLIGRAMS 435057 RxNorm TAKE 12.5 MILLIGRAMS ORAL BEDTIME Percocet 5MG-325MG Oral Tablet 09/18/2022 Unknown ORAL NEEDED EVERY 4 HOURS 5309096 RxNorm TAKE 1-2 TABLET ORAL NEEDED EVERY 4 HOURS Flomax 0.4MG Oral Capsule 09/18/2022 Unknown ORAL DAILY 1 CAPSULE 676685 RxNorm TAKE 1 CAPSULE ORAL DAILY UNTIL STONE PASSES Ibuprofen 200MG Oral Tablet 09/18/2022 Unknown ORAL EVERY 6 HOURS 3 TABLET 612910 RxNorm TAKE 3 TABLET ORAL EVERY 6 [...] Date Status Code Code System HYPERTENSION active 05724751 SNOMED- CT PTSD active 19257875 SNOMED-CT SYNCOPE active 557459628 SNOMED-CT CHEST PAIN active 39265749 SNOMED-CT WEAKNESS active 93362551 SNOMED-CT URETEROLITHIASIS active 27491029 SNO MED-CT MIGRAINE 07/18/2021 resolved 16599966 SNOMED-CT CARPAL TUNNEL 07/18/2021 resolved 04171157 SNOME D-CT CHRONIC PAIN 07/18/2021 resolved 43388822 SNOMED -CT TONSILLITIS 07/18/2021 resolved 49439382 SNOMED- CT TMJ SYNDROME 07/18/2021 resolved 939788898 SNOMED -CT FIBROMYALGIA 07/18/2021 resolved 871796361 SNOMED -CT 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 40803664 SNOMED -CT 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 13089119 SNOMED-CT ANXIETY 07/18/2021 resolved 55429767 SNOMED-CT DEPRESSION 07/18/2021 resolved 13008054 SNOMED-C T ACID REFLUX 07/18/2021 resolved 171386794 SNOMED- CT CHRONIC PAIN 07/18/2021 resolved 91076026 SNOMED -CT HYPERTENSION 07/18/2021 resolved 39002162 SNOMED -CT Allergies and Adverse Reactions Allergy Substance Reaction Severity Start Date Concern Status Code Code System SULFA (sulfonamide) Vomiting (SNOMED-CT: 496983153) Active 79121737 SNOMED-CT PENICILLIN G Hives (SNOMED-CT: 052824443) Moderate Active 7980 RxNorm SHELLFISH Anaphylaxis (SNOMED-CT: 82700281) Active 642548930 SNOMED-CT FISH PROTEIN Anaphylaxis (SNOMED-CT: 64116197) Active 59044819 SNOMED-CT TOPAMAX Active 733898 RxNorm Plan of Treatment MM SCREEN BILAT 07/02/2022 PRE-OP COVID-19 TESTING 08/13/2021 MM SCREEN BILAT 05/28/2021 Encounters Encounter Diagnosis Start Date Code Code Sys tem Encounter for general adult medical examination without abnormal findings 07/16/2022 SNOMED-CT Personal Care Team Section Performer Name Performer Role Active Date Inactive Da te
--- OUTSIDE RECORDS SUMMARY | 2024-02-23 17:23 | XMS_ITS ---
Author Organization Unknown Address [address] [place] [address] [phone] Phone Care Team Providers Care Data Storage Specialist Name Role Phone [facility] Attending Unavailable RADHIKA Dhillon Primary Unavailable Results MM SCREENING BILAT MAMMO W T LONA W CAD - Completed: 07/02/2022 10:15 LOINC: [place], [place] [address] PACS APPLICATION DEVELOPMENT CONSULTANT REPORT Patient Name: THONG HESTER MRN: Sex: : Age: [id number] F [id number] Account: Accession: Admit: StayType: [id number] 07/02/2022 O/P Ordered: Order ID: Submitted: Ordering Provider: 07/02/2022 09:51 [id number] [facility] ANTONIA AGUIAR Completed: Technologist: Resulted: 07/02/2022 10:15 KVK 07/02/2022 12:52 Study Description: MM SCREENING BILAT MAMMO W TRACY W CAD Study Reason: Screening TECHNIQUE: Bilateral full field digital CC and MLO mammographic images were obtained with 3D tomosynthesis and utilizing computer aided detection (CAD). COMPARISON: Prior mammograms were reviewed. FINDINGS: There has been no significant change in the appearance and distribution of the fibroglandular tissue. There are no CAD designations There are no spiculated masses nor malignant appearing microcalcification groups. There is no significant architectural distortion nor skin thickening-retraction. IMPRESSION: 1. No radiographic evidence of malignancy. BiRads Category: 1-negative BI-RADS Density Category A: Almost entirely Fatty Breast density Category C or D implies that the patient has dense breast tissue. Dense breast tissue can make it harder to find cancer on a mammogram. Dense breast tissue is also associated with an increased risk of breast cancer. This information about the result of the mammogram report was provided to the patient to raise their awareness. Use this report when you speak with the patient about their risks for breast cancer, which includes their family history. At that time, you may recommend additional screening tests (Ultrasound or MRI) as these tests may add significant information. A negative radiographic report should not delay biopsy if a dominant or clinically suspicious mass is present. Up to ten percent of cancers are not identified on mammography. A negative report may reinforce clinical impression. Adenosis and dense breasts may obscure an underlying neoplasm. False positive reports average 6 to 10%. Patient will receive a letter notifying them of these results. Report Digitally Signed by Vivek Costa on 07/02/2022 12:52 PM EST Social History Type Status Start Date End Date Code Code Syst em Smoking History Never smoker (Never Smoked) 588116352 SNOMED CT Sex Female Medications Medication Start Date End Date Route Frequency Dose Code Code System Medication Instructions Home Meds Amitriptyline HCl 100MG Oral Tablet 07/19/2021 Unknown ORAL BEDTIME 100 MILLIGRAMS 593915 RxNorm TAKE 100 MILLIGRAMS ORAL BEDTIME Cyclobenzaprine 10MG Oral Tablet 07/19/2021 Unknown ORAL NEEDED THREE TIMES A DAY 10 MILLIGRAMS 748179 RxNorm TAKE 10 MILLIGRAMS ORAL NEEDED THREE TIMES A DAY Doxycycline 100MG Oral Capsule 07/19/2021 Unknown ORAL BEDTIME 100 MILLIGRAMS 9283593 RxNorm TAKE 100 MILLIGRAMS ORAL BEDTIME Gabapentin 800MG Oral Tablet 07/19/2021 Unknown ORAL BEDTIME 800 MILLIGRAMS 175420 RxNorm TAKE 800 MILLIGRAMS ORAL BEDTIME Loratadine 10MG Oral Tablet 07/19/2021 Unknown ORAL NEEDED DAILY 10 MILLIGRAMS 776179 RxNorm TAKE 10 MILLIGRAMS ORAL NEEDED DAILY Metoprolol Succinate 100MG Oral Tablet, Extended Release 07/19/2021 Unknown ORAL BEDTIME 100 MILLIGRAMS 243548 RxNorm TAKE 100 MILLIGRAMS ORAL BEDTIME Omeprazole 40MG Oral Capsule, Delayed Release 07/19/2021 Unknown ORAL BEDTIME 40 MILLIGRAMS 967591 RxNorm TAKE 40 MILLIGRAMS ORAL BEDTIME Percocet 5MG-325MG Oral Tablet 07/19/2021 Unknown ORAL NEEDED THREE TIMES A DAY 1 unit(s) 1221653 RxNorm TAKE 1 EACH ORAL NEEDED THREE TIMES A DAY SF 5000 Plus 1.1% Dental Cream 07/19/2021 Unknown DENTAL NEEDED 1 unit(s) 856019 RxNorm 1 EACH DENTAL NEEDED Venlafaxine HCl 150MG Oral Capsule, Extended Release 07/19/2021 Unknown ORAL BEDTIME 150 MILLIGRAMS 862146 RxNorm TAKE 150 MILLIGRAMS ORAL BEDTIME Venlafaxine HCl 37.5MG Oral Tablet 07/19/2021 Unknown ORAL BEDTIME 37.5 MILLIGRAMS 714412 RxNorm TAKE 37.5 MILLIGRAMS ORAL BEDTIME Voltaren Gel 1% Topical application Gel/Jelly 07/19/2021 Unknown TOPICA L APPLIC ATION TWICE A DAY 1 unit(s) 446362 RxNorm 1 EACH TOPICAL APPLICATION TWICE A DAY Zolpidem Tartrate 12.5MG Oral Tablet, Extended Release 07/19/2021 Unknown ORAL NEEDED AT BEDTIME 12.5 MILLIGRAMS 692083 RxNorm TAKE 12.5 MILLIGRAMS ORAL NEEDED AT BEDTIME diphenhydrAMINE HCl 25MG Oral Capsule 07/19/2021 Unknown ORAL DAILY 25 MILLIGRAMS 5276112 RxNorm TAKE 25 MILLIGRAMS ORAL DAILY hydrOXYzine HCl 25MG Oral Tablet 07/19/2021 Unknown ORAL TWICE A DAY 75 MILLIGRAMS 335768 RxNorm TAKE 75 MILLIGRAMS ORAL TWICE A DAY hydroCHLOROthia zide 12.5MG Oral Tablet 07/19/2021 Unknown ORAL BEDTIME 12.5 MILLIGRAMS 138310 RxNorm TAKE 12.5 MILLIGRAMS ORAL BEDTIME Percocet 5MG-325MG Oral Tablet 09/18/2022 Unknown ORAL NEEDED EVERY 4 HOURS 9636034 RxNorm TAKE 1-2 TABLET ORAL NEEDED EVERY 4 HOURS Flomax 0.4MG Oral Capsule 09/18/2022 Unknown ORAL DAILY 1 CAPSULE 830956 RxNorm TAKE 1 CAPSULE ORAL DAILY UNTIL STONE PASSES Ibuprofen 200MG Oral Tablet 09/18/2022 Unknown ORAL EVERY 6 HOURS 3 TABLET 676079 RxNorm TAKE 3 TABLET ORAL EVERY 6 [...] Date Status Code Code System HYPERTENSION active 20353384 SNOMED- CT PTSD active 18766172 SNOMED-CT SYNCOPE active 990738045 SNOMED-CT CHEST PAIN active 25388197 SNOMED-CT WEAKNESS active 16222136 SNOMED-CT URETEROLITHIASIS active 44955592 SNO MED-CT MIGRAINE 07/18/2021 resolved 67576972 SNOMED-CT CARPAL TUNNEL 07/18/2021 resolved 52597952 SNOME D-CT CHRONIC PAIN 07/18/2021 resolved 40654207 SNOMED -CT TONSILLITIS 07/18/2021 resolved 92642751 SNOMED- CT TMJ SYNDROME 07/18/2021 resolved 843756551 SNOMED -CT FIBROMYALGIA 07/18/2021 resolved 540495238 SNOMED -CT 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 83789135 SNOMED -CT 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 98236094 SNOMED-CT ANXIETY 07/18/2021 resolved 89643823 SNOMED-CT DEPRESSION 07/18/2021 resolved 53885942 SNOMED-C T ACID REFLUX 07/18/2021 resolved 966974842 SNOMED- CT CHRONIC PAIN 07/18/2021 resolved 88312250 SNOMED -CT HYPERTENSION 07/18/2021 resolved 96381626 SNOMED -CT Allergies and Adverse Reactions Allergy Substance Reaction Severity Start Date Concern Status Code Code System SULFA (sulfonamide) Vomiting (SNOMED-CT: 641286357) Active 28087732 SNOMED-CT PENICILLIN G Hives (SNOMED-CT: 316149753) Moderate Active 7980 RxNorm SHELLFISH Anaphylaxis (SNOMED-CT: 71803862) Active 688110525 SNOMED-CT FISH PROTEIN Anaphylaxis (SNOMED-CT: 00630344) Active 40569167 SNOMED-CT TOPAMAX Active 223337 RxNorm Plan of Treatment MM SCREEN BILAT 07/02/2022 PRE-OP COVID-19 TESTING 08/13/2021 MM SCREEN BILAT 05/28/2021 Encounters Encounter Diagnosis Start Date Code Code Sys tem Encounter for screening mamm ogram for malignant neoplasm of breast 07/02/2022 SNOMED-CT Personal Care Team Section Performer Name Performer Role Active Date Inactive Colin epstein
[2024-02-23 23:21] LABS: FSH 1.1 mIU/mL (See Note)
== END 2024-02-23 17:17 | disposition home or self-care (01) ==
LOC: NCHCN 17:16
PROVIDERS: PCP Nurse Practitioner Psychiatric/Mental Health; Visit Provider Family Medicine
DX: R73.03 Prediabetes (principal); E53.9 Vitamin B deficiency, unspecified; E55.9 Vitamin D deficiency, unspecified; R94.6 Abnormal results of thyroid function studies; Z00.00 Encounter for general adult medical examination without abnormal findings
CPT/HCPCS: 80053; 80061; 82306; 82607; 82746; 83001; 83036; 84439; 84443

== ENCOUNTER 2024-04-22 21:53 | Outpatient (REF) | payer MEDICAID, SELFPAY ==
--- OUTSIDE RECORDS SUMMARY | 2024-04-22 21:55 | XMS_ITS | Continuity of Care Document ---
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 Name Role Phone Vannesa Bunch Primary Care Physician [phone] Encounter [facility] [id number] Date(s): 03/15/24 - 03/15/24 [facility] [address] [place] [address] Discharge Disposition: Home Allergies, Adverse Reactions, Alerts Substance Criticality Severity Reaction Reaction Severity Status codeine Low criticality Mild Acti ve erythromycin Low criticality Mild A ctive Claritin Low criticality Mild Acti ve Topamax Unable to assess criticality Unknown Active Sulfazine Unable to assess criticality Unknown Active shellfish Unable to assess criticality Unknown Active Assessment and Plan Future Appointments Medications acetaminophen 500 mg oral tablet 500 mg = 1 tab, Oral, every 4 hr, PRN as needed for pain, # 50 tab, 0 Refill(s) Start Date: 01/29/24 Status: Ordered atorvastatin 40 mg oral tablet TAKE ONE TABLET BY MOUTH EVERY DAY AT BEDTIME Start Date: 03/15/24 Status: Ordered busPIRone 5 mg oral tablet 5 mg = 1 tab, Oral, BID, # 90 tab, 0 Refill(s) Start Date: 01/29/24 Status: Ordered cyclobenzaprine 5 mg oral tablet 5 mg = 1 tab, Oral, PRN as needed for muscle spasm, # 30 tab, 0 Refill(s) Start Date: 01/29/24 Status: Ordered diclofenac 1% topical gel 1 lexi, Topical, QID, # 100 g, 0 Refill(s) Start Date: 01/29/24 Status: Ordered Diphenhist 25 mg oral capsule 25 mg = 1 cap, Oral, every 4 hr, PRN as needed for allergy symptoms, # 100 cap, 0 Refill(s) Start Date: 01/29/24 Status: Ordered Emgality Prefilled Pen 120 mg/mL subcutaneous solution 240 mg = 2 mL, Subcutaneous, every month, 0 Refill(s) Start Date: 01/29/24 Status: Ordered ergocalciferol 1.25 mg (50,000 intl units) oral capsule TAKE ONE CAPSULE BY MOUTH ONCE A WEEK FOR 12 WEEKS Start Date: 03/15/24 Status: Ordered estradiol 1 mg oral tablet TAKE ONE TABLET BY MOUTH EVERY DAY Start Date: 03/15/24 Status: Ordered ibuprofen 800 mg oral tablet 800 mg = 1 tab, Oral, TID, # 270 tab, 0 Refill(s) Start Date: 01/29/24 Status: Ordered lamoTRIgine 200 mg oral tablet 200 mg = 1 tab, Oral, Daily, # 60 tab, 0 Refill(s) Start Date: 01/29/24 Status: Ordered metoprolol succinate 100 mg oral capsule, extended release 100 mg = 1 cap, Oral, Daily, # 30 cap, 0 Refill(s) Start Date: 01/29/24 Status: Ordered montelukast 10 mg oral tablet 10 mg = 1 tab, Oral, Daily, 0 Refill(s) Start Date: 01/29/24 Status: Ordered omeprazole 40 mg oral delayed release capsule 40 mg = 1 cap, Oral, Daily, # 30 cap, 0 Refill(s) Start Date: 01/29/24 Status: Ordered oxyCODONE-acetaminophen 10 mg-325 mg oral tablet 2 tab, Oral, every 6 hr, PRN as needed for pain, 0 Refill(s) Start Date: 01/29/24 Status: Ordered progesterone 100 mg oral capsule TAKE ONE CAPSULE BY MOUTH EVERY DAY Start Date: 03/15/24 Status: Ordered Setlakin 0.15 mg-30 mcg oral tablet 1 tab, Oral, Daily, 0 Refill(s) Start Date: 01/29/24 Status: Ordered tranexamic acid 650 mg oral tablet 0 Refill(s) Start Date: 01/29/24 Status: Ordered traZODone 150 mg oral tablet 150 mg = 1 tab, Oral, every night at bedtime, # 30 tab, 0 Refill(s) Start Date: 01/29/24 Status: Ordered venlafaxine 150 mg oral capsule, extended release 150 mg = 1 cap, Oral, Daily, # 30 cap, 0 Refill(s) Start Date: 01/29/24 Status: Ordered venlafaxine 75 mg oral capsule, extended release 75 mg = 1 cap, Oral, Daily, # 30 cap, 0 Refill(s) Start Date: 01/29/24 Status: Ordered Vitamin B12 1,000 mcg =, Oral, Daily, 0 Refill(s) Start Date: 01/29/24 Status: Ordered zolpidem 5 mg oral tablet 5 mg = 1 tab, Oral, every night at bedtime, PRN as needed for insomnia, 0 Refill(s) Start Date: 01/29/24 Status: Ordered Problem List Condition Confirmation Course Effective Dates Status H ealth Status Informant Acne vulgaris Confirmed Active Anxiety disorder Confirmed Active Benign essential HTN Confirmed Active Cervical radiculopathy Confirmed Active Chronic pain Confirmed Active Cleft palate Confirmed Active Disorder of nasal sinus Confirmed Active Fatigue Confirmed Active Family history of cardiovascular disorder Confirmed Active Fibromyalgia Confirmed Active Insomnia Confirmed Active Kidney stones Confirmed Active Neck pain Confirmed Active Obesity Confirmed Active PTSD (post-traumatic stress disorder) Confirmed Active Prediabetes Confirmed Active Recurrent depressive disorder Confirmed Active Seasonal allergic rhinitis Confirmed Active Pain in joint of left shoulder Confirmed Active Sleep state misperception Confirmed Active Snoring Confirmed Active Steatosis of liver Confirmed Active Stress Confirmed Active Suicidal thoughts Confirmed Active Thyroid function test abnormal Confirmed Active Vitamin B deficiency Confirmed Active Vitamin D deficiency Confirmed Active Social History Social History Type Response Tobacco Never tobacco user T obacco Use:. Sex Female Sex Representation Female (finding) Patient Care team information Care Team Personnel Name: Vannesa Bunch APRN Position: No Access Member Role: Primary Care Physician Address: [address] Care Team Related Persons Name: BRITTA HESTER Insurance Providers Guarantor name: THONG LARABAR Health Plan Information #: 1 Payer: [facility] MEDICAID Member Number: NA Policy Number: NA
--- OUTSIDE RECORDS SUMMARY | 2024-04-22 21:55 | XMS_ITS ---
Author Organization Unknown Address [address] [place] [phone] Phone Care Team Providers Care Landscape Architecture Professor Name Role Phone AMBREEN JORGENSEN Registered Nurse Unavailable IVAN White Attending Unavailable LINDA Ron [facility] Unavailable RADHIKA Dhillon Primary Unavailable UNLISTED PROVIDER - REQUESTED Xhandoff Un available Results TEST (URINE) QUALI TATIVE - Collect Date/Time: 08/04/2021 17:25 [facility] ID: [id number] [address] [place] [address], [address] LOINC: 2106-3 Test Value Unit Reference Range Code Code System Flag TEST NEGATIVE 2106-3 LOINC COMPREHENSIVE METABOLIC PANE L (CMP) - Collect Date/Time: 08/04/2021 17:25 [facility] ID: [id number] [address] [place] [address], [address] LOINC: 40859-5 Test Value Unit Reference Range Code Code [...] H=34 2028-9 LOINC ANION GAP 7.9 mmol/L 57671-2 LOINC CALCIUM SERUM 8.3 mg/dL L=8.2 H=10.2 88086-4 LOINC BILIRUBIN TOTAL 0.5 mg/dL L=0.0 H=1.3 1975-2 LOINC ALK. PHOS. 86 U/L L=46 H=116 6768-6 LOINC SGOT (AST) 14 U/L L=15 H=37 1920-8 LOINC L SGPT (ALT) 23 U/L L=12 H=78 1742-6 LOINC TOTAL PROTEIN 6.9 gm/dL L=6.0 H=8.0 2885-2 LOINC ALBUMIN 3.4 gm/dL L=3.4 H=5.0 1751-7 LOINC AGE 46 years eGFR (non-Afr.Amer.) 65 mL/min 03924-9 LOINC eGFR (Afr-Canadian) 79 mL/min 81999-9 LOINC CBC W/ DIFFERENTIAL* - Colle ct Date/Time: 08/04/2021 17:25 [facility] ID: [id number] [address] [place] [address], [address] LOINC: 94358-0 Test Value Unit Reference Range Code Code System Flag WBC 15.60 th/cmm L=5.00 H=10.00 6690-2 LOINC H NEUT % 71.7 % L=40.0 H=80.0 LYMPH % 20.1 % L=10.0 H=50.0 MONO % 6.5 % L=2.0 H=12.0 29840-9 LOINC EOS % 0.9 % L=0.0 H=8.0 BASO % 0.3 % L=0.0 H=3.0 IG % 0.5 % L=0.0 H=1.1 2514-8 LOINC NRBC % 0.0 % L=0.0 H=0.0 78161-7 LOINC NEUT abs count 11.2 th/cmm L=1.6 H=8.4 751-8 LOINC H LYMPH abs count 3.1 th/cmm L=1.5 H=4.0 731-0 LOINC MONO abs count 1.0 th/cmm L=0.2 H=1.0 742-7 LOINC EOS abs count 0.1 th/cmm L=0.0 H=0.5 711-2 LOINC BASO abs count 0.0 th/cmm L=0.0 H=0.2 704-7 LOINC IG abs count 0.1 th/cmm L=0.0 H=0.1 70380-9 LOINC NRBC abs count 0.0 mil/cmm L=0.0 H=0.0 35852-5 LOINC RBC 4.82 mil/cmm L=3.90 H=5.40 789-8 [...] IF POSITIVE* - Collect Date/Time: 08/04/2021 17:25 [facility] ID: [id number] [address] [place], [place], [address] LOINC: 35502-5 Test Value Unit Reference Range Code Code System Flag COLLECTION MODE: CLEAN CATCH Color YELLOW yellow 5778-6 LOINC Appearance HAZY clear 5767-9 LOINC Glucose urine NEGATIVE negative mg/dl 89236-8 LOINC Bilirubin NEGATIVE negative 5770-3 LOINC Ketones NEGATIVE negative mg/dl 2514-8 LOINC Spec gravity 1.020 1.003 - 1.030 5811-5 LOINC pH urine 6.5 5.0 - 7.0 2756-5 LOINC Protein NEGATIVE negative mg/dl 03241-3 LOINC Urobilinogen 0.2 <or= 1 EU/dl 19894-9 LOINC Nitrite. NEGATIVE negative 5802-4 LOINC Blood LARGE negative 5794-3 LOINC A Leukocytes. TRACE negative A MICROSCOPIC INDICATED WBCs. 5-10 0-5 / hpf 28755-5 LOINC RBCs 10-25 0-5 / hpf 90579-3 LOINC Epith cells 10-25 0-5 / hpf 23676-4 LOINC Cell types squamous Crystals none none Bacteria minimal none Mucus present none 8247-9 LOINC Casts none none /lpf 35654-6 LOINC Other 71236-[address] ABD + PELVIS WO CONTRAST [...] Dictated by: DUTCH MATHIS MD Transcribed by: [facility] 08/05/21/10:33 D Wednesday, August 04, 2021 4:03:50 PM [id number] Electronically Reviewed and Signed By: ASHLYN MATHIS MD 08/06/21 07:40 Copy for: 185 HEALTH INFORMATION MGMT DISCHARGED Social History Type Status Start Date End Date Code Code Syst em Smoking History Never smoker (Never Smoked) 437858378 SNOMED CT Sex Female Vital Signs Vital Sign Value Unit Wirt Value Wirt Unit Date/Time Recent/Initial? Code Code System Body Mass Index 35.15 kg/m2 08/04/2021 14:11 Initial 30133 -5 LOINC Systolic Blood Pressure 147 mm[Hg] 08/04/2021 14:11 Initial 8480- 6 LOINC Diastolic Blood Pressure 112 mm[Hg] 08/04/2021 14:11 Initial 8462- 4 LOINC Body Surface Area 1.86 m2 08/04/2021 14:11 Initial 3140- 1 LOINC Height 152.400 0 cm 60.00 in 08/04/2021 14:11 Initial 8302- 2 LOINC O2 Saturation 100 % 2021 14:11 Initial 77343 -5 LOINC Pulse 100.0 /min 08/04/2021 14:11 Initial 8867- 4 LOINC Respiration 19 /min 08/04/19 14:11 Initial 9279- 1 LOINC Temperature 36.7 Thi 98.1 F 08/04/19 14:11 Initial 8310- 5 LOINC Weight 81.65 kg 180.00 lbs 08/04/2021 14:11 Initial 08674 -7 [facility] Medications Medication Start Date End Date Route Frequency Dose Code Code System Medication Instructions Home Meds Amitriptyline HCl 100MG Oral Tablet 07/19/2021 Unknown ORAL BEDTIME 100 MILLIGRAMS 333040 RxNorm TAKE 100 MILLIGRAMS ORAL BEDTIME Cyclobenzaprine 10MG Oral Tablet 07/19/2021 Unknown ORAL NEEDED THREE TIMES A DAY 10 MILLIGRAMS 724358 RxNorm TAKE 10 MILLIGRAMS ORAL NEEDED THREE TIMES A DAY Doxycycline 100MG Oral Capsule 07/19/2021 Unknown ORAL BEDTIME 100 MILLIGRAMS 4347362 RxNorm TAKE 100 MILLIGRAMS ORAL BEDTIME Gabapentin 800MG Oral Tablet 07/19/2021 Unknown ORAL BEDTIME 800 MILLIGRAMS 291564 RxNorm TAKE 800 MILLIGRAMS ORAL BEDTIME Loratadine 10MG Oral Tablet 07/19/2021 Unknown ORAL NEEDED DAILY 10 MILLIGRAMS 635380 RxNorm TAKE 10 MILLIGRAMS ORAL NEEDED DAILY Metoprolol Succinate 100MG Oral Tablet, Extended Release 07/19/2021 Unknown ORAL BEDTIME 100 MILLIGRAMS 673283 RxNorm TAKE 100 MILLIGRAMS ORAL BEDTIME Omeprazole 40MG Oral Capsule, Delayed Release 07/19/2021 Unknown ORAL BEDTIME 40 MILLIGRAMS 218850 RxNorm TAKE 40 MILLIGRAMS ORAL BEDTIME Percocet 5MG-325MG Oral Tablet 07/19/2021 Unknown ORAL NEEDED THREE TIMES A DAY 1 unit(s) 1491410 RxNorm TAKE 1 EACH ORAL NEEDED THREE TIMES A DAY SF 5000 Plus 1.1% Dental Cream 07/19/2021 04/19/20 24 DENTAL NEEDED 1 unit(s) 880439 RxNorm 1 EACH DENTAL NEEDED Venlafaxine HCl 150MG Oral Capsule, Extended Release 07/19/2021 Unknown ORAL BEDTIME 150 MILLIGRAMS 434916 RxNorm TAKE 150 MILLIGRAMS ORAL BEDTIME Venlafaxine HCl 37.5MG Oral Tablet 07/19/2021 04/19/20 24 ORAL BEDTIME 37.5 MILLIGRAMS 658609 RxNorm TAKE 37.5 MILLIGRAMS ORAL BEDTIME Voltaren Gel 1% Topical application Gel/Jelly 07/19/2021 Unknown TOPICA L APPLIC ATION TWICE A DAY 1 unit(s) 493790 RxNorm 1 EACH TOPICAL APPLICATION TWICE A DAY Zolpidem Tartrate 12.5MG Oral Tablet, Extended Release 07/19/2021 Unknown ORAL NEEDED AT BEDTIME 12.5 MILLIGRAMS 717408 RxNorm TAKE 12.5 MILLIGRAMS ORAL NEEDED AT BEDTIME diphenhydrAMINE HCl 25MG Oral Capsule 07/19/2021 Unknown ORAL DAILY 25 MILLIGRAMS 5231910 RxNorm TAKE 25 MILLIGRAMS ORAL DAILY hydrOXYzine HCl 25MG Oral Tablet 07/19/2021 04/19/20 24 ORAL TWICE A DAY 75 MILLIGRAMS 748107 RxNorm TAKE 75 MILLIGRAMS ORAL TWICE A DAY hydroCHLOROthia zide 12.5MG Oral Tablet 07/19/2021 04/19/20 24 ORAL BEDTIME 12.5 MILLIGRAMS 918604 RxNorm TAKE 12.5 MILLIGRAMS ORAL BEDTIME Percocet 5MG-325MG Oral Tablet 09/18/2022 Unknown ORAL NEEDED EVERY 4 HOURS 8948023 RxNorm TAKE 1-2 TABLET ORAL NEEDED EVERY 4 HOURS Flomax 0.4MG Oral Capsule 09/18/2022 Unknown ORAL DAILY 1 CAPSULE 950865 RxNorm TAKE 1 CAPSULE ORAL DAILY UNTIL STONE PASSES Ibuprofen 200MG Oral Tablet 09/18/2022 04/19/20 24 ORAL EVERY 6 HOURS 3 TABLET 225118 RxNorm TAKE 3 TABLET ORAL EVERY 6 HOURS NEEDED FOR PAIN UNTIL STONE PASSES Ondansetron 4MG Oral Tablet, Disintegrating 04/18/2024 Unknown ORAL NEEDED EVERY 4 HOURS 1 TABLET 435459 RxNorm TAKE 1 TABLET ORAL NEEDED EVERY 4 HOURS Cefpodoxime Proxetil 200MG Oral Tablet 04/18/2024 Unknown ORAL TWICE A DAY 1 TABLET 292752 RxNorm TAKE 1 TABLET ORAL TWICE A DAY Assessment You had the following problems:HYPERTENSIONPTSDSYNCOPECHEST PAINWEAKNESSURETEROLITHIASIS Hospital Discharge Instructions Should you have any questions prior to discharge, please contact a member of your healthcare team. If you have left the hospital and have any questions, please contact your primary care physician. Reason For Referral No Data Found Problems Problem Start Date Resolved Date Status Code Code System HYPERTENSION active 96622265 SNOMED- CT PTSD active 91456412 SNOMED-CT SYNCOPE active 347728266 SNOMED-CT CHEST PAIN active 18413471 SNOMED-CT WEAKNESS active 47846099 SNOMED-CT URETEROLITHIASIS active 68351414 SNO MED-CT MIGRAINE 07/18/2021 resolved 57141998 SNOMED-CT CARPAL TUNNEL 07/18/2021 resolved 53361718 SNOME D-CT CHRONIC PAIN 07/18/2021 resolved 33468750 SNOMED -CT TONSILLITIS 07/18/2021 resolved 90725802 SNOMED- CT TMJ SYNDROME 07/18/2021 resolved 089997564 SNOMED -CT FIBROMYALGIA 07/18/2021 resolved 814583353 SNOMED -CT 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 47807558 SNOMED -CT 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 41707386 SNOMED-CT ANXIETY 07/18/2021 resolved 24893061 SNOMED-CT DEPRESSION 07/18/2021 resolved 33916297 SNOMED-C T ACID REFLUX 07/18/2021 resolved 687439130 SNOMED- CT CHRONIC PAIN 07/18/2021 resolved 16813482 SNOMED -CT HYPERTENSION 07/18/2021 resolved 54169913 SNOMED -CT Allergies and Adverse Reactions Allergy Substance Reaction Severity Start Date Concern Status Code Code System SULFA (sulfonamide) Vomiting (SNOMED-CT: 368935080) Active 26579994 SNOMED-CT PENICILLIN G Hives (SNOMED-CT: 132750072) Moderate Active 7980 RxNorm SHELLFISH Anaphylaxis (SNOMED-CT: 14142260) Active 359381492 SNOMED-CT FISH PROTEIN Anaphylaxis (SNOMED-CT: 56454920) Active 84866682 SNOMED-CT TOPAMAX Active 915908 RxNorm Plan of Treatment MM SCREEN BILAT 07/02/2022 PRE-OP COVID-19 TESTING 08/13/2021 MM SCREEN BILAT 05/28/2021 Encounters Encounter Diagnosis Start Date Code Code Sys tem Ureteric stone 08/04/2021 98134912 SNOMED-CT Personal Care Team Section Performer Name Performer Role Active Date Inactive Colin epstein
--- OUTSIDE RECORDS SUMMARY | 2024-04-22 21:55 | XMS_ITS ---
Author Organization Unknown Address [address] [place] [address] [phone] Phone Care Team Providers [employer] Teacher Name Role Phone TESSA PABLO Registered Nurse Unavailable YONI RICCI Registered Nurse Unavailab le Unavailable Xwatchlist Unavailable LOLI Heart Attending Unavailable MAURO Maciel ER Unavailable RADHIKA Dhillon Primary Unavailable UNLISTED PROVIDER - REQUESTED Xhandoff Un available Results TROPONIN-I DAY 1* - Collect Date/Time: 07/19/2021 06:45 [facility] ID: [id number] [address] [place] [address], [address] LOINC: 98221-6 Test Value Unit Reference Range Code Code System Flag TROPONIN-I < 0.017 ng/mL L=0.000 H=0.060 08785-2 LOINC TROPONIN HIGH SENSITIVITY* - Collect Date/Time: 07/19/2021 06:45 [facility] ID: [id number] [address] [place] [address], 5[address] LOINC: 96566-9 Test Value Unit Reference Range Code Code System Flag TROPONIN HS 4.9 pg/mL L=0.0 H=60.4 Specimen seq. ADM. VJ RENO* - Lorin ect Date/Time: 07/18/2021 06:17 [facility] ID: [id number] [address] [place] [address], [id number] LOINC: 70275-3 Test Value Unit Reference Range Code Code System Flag Tier- INPATIENT/ED SARS COV2 RNA: NEGATIVE REFERENCE RAN GE: NEGAT 62604-6 LOINC TROPONIN-I* - Collect Date/T herb: 07/18/2021 05:30 [facility] ID: [id number] [address] [place] [address], [address] LOINC: 38532-4 Test Value Unit Reference Range Code Code System Flag TROPONIN-I < 0.017 ng/mL L=0.000 H=0.060 07610-6 LOINC Specimen seq. Random BASIC METABOLIC PANEL (BMP) - Collect Date/Time: 07/18/2021 05:30 [facility] ID: [id number] [address] [place] [address], [address] LOINC: 04527-2 Test Value Unit Reference Range Code Code System Flag GLUCOSE 101 mg/dL L=70 H=116 2345-7 LOINC BUN 13 mg/dL L=6 H=25 3094-0 LOINC CREATININE 1.08 mg/dL L=0.51 H=0.95 2160-0 LOINC H SODIUM SERUM 139 mmol/L L=136 H=145 2951-2 LOINC POTASSIUM SERUM 3.5 mmol/L L=3.4 H=5.2 2823-3 LOINC CHLORIDE SERUM 101 mmol/L L=96 H=110 2075-0 LOINC CARBON DIOXIDE (CO2) 28 mmol/L L=22 H=34 2028-9 LOINC ANION GAP 10.1 mmol/L 74179-9 LOINC CALCIUM SERUM 8.8 mg/dL L=8.2 H=10.2 63966-3 LOINC AGE 46 years eGFR (non-Afr.Amer.) 54 mL/min 94320-1 LOINC eGFR (Afr-Turkmen) 66 mL/min 55776-2 LOINC CBC W/ DIFFERENTIAL* - Colle ct Date/Time: 07/18/2021 05:30 [facility] ID: [id number] [address] [place] [address], [address] LOINC: 02682-1 Test Value Unit Reference Range Code Code System Flag WBC 9.90 th/cmm L=5.00 H=10.00 6690-2 LOINC NEUT % 71.3 % L=40.0 H=80.0 LYMPH % 19.6 % L=10.0 H=50.0 MONO % 6.7 % L=2.0 H=12.0 43814-2 LOINC EOS % 1.7 % L=0.0 H=8.0 BASO % 0.5 % L=0.0 H=3.0 IG % 0.2 % L=0.0 H=1.1 2514-8 LOINC NRBC % 0.0 % L=0.0 H=0.0 65873-5 LOINC NEUT abs count 7.1 th/cmm L=1.6 H=8.4 751-8 LOINC LYMPH abs count 1.9 th/cmm L=1.5 H=4.0 731-0 LOINC MONO abs count 0.7 th/cmm L=0.2 H=1.0 742-7 LOINC EOS abs count 0.2 th/cmm L=0.0 H=0.5 711-2 LOINC BASO abs count 0.1 th/cmm L=0.0 H=0.2 704-7 LOINC IG abs count 0.0 th/cmm L=0.0 H=0.1 83580-3 LOINC NRBC abs count 0.0 mil/cmm L=0.0 H=0.0 64992-5 LOINC RBC 4.87 mil/cmm L=3.90 H=5.40 789-8 LOINC HEMOGLOBIN 14.9 gm/dL L=12.0 H=16.0 718-7 LOINC HEMATOCRIT 46 % L=37 H=47 4544-3 LOINC MCV 94 fL L=82 H=92 787-2 LOINC H MCH 30.6 pg L=27.0 H=31.0 785-6 LOINC MCHC 32.6 % L=32.0 H=36.0 786-4 LOINC RDW-SD 46.1 fL L=39.0 H=49.0 788-0 LOINC PLATELET COUNT 297 th/cmm L=150 H=450 777-3 LOINC TROPONIN HIGH SENSITIVITY* - Collect Date/Time: 07/18/2021 05:30 [facility] ID: [id number] [address] [place] [address], [facility] LOINC: 22307-1 Test Value Unit Reference Range Code Code System Flag TROPONIN HS 5.6 pg/mL L=0.0 H=60.4 Specimen seq. Random D-DIMER - Collect Date/Time: 07/18/2021 05:30 [facility] ID: [id number] [address] [place] [address], [address] LOINC: 91545-2 Test Value Unit Reference Range Code Code System Flag D-DIMER 0.35 mg/L L=0.19 H=0.50 52858-5 LOINC MR BRAIN STEM WWO CONTRAST - Completed: 07/19/2021 17:51 LOINC: MRI SCAN OF THE BRAIN WITHOU T AND WITH IV CONTRAST: Multisequence MRI scan of the brain was performed with both pre and postcontrast infused sequences. There is no evidence of intracranial hemorrhage, mass effect, nor shift to the midline structures. No extra-axial fluid collections. Ventricles are not enlarged nor shifted. Expected flow voids are noted. No evidence of obvious vascular malformation nor aneurysm. No evidence of restricted diffusion on DWI to suggest recent infarct. There is no significant signal abnormality in the cerebellar hemispheres nor with the loreta, midbrain, and thalami. There are a few small foci of white matter signal abnormality in the anterior forceps white matter of both frontal lobes, the largest measuring 5 mm, not associated with a hemorrhage, surrounding edema, signal abnormality on diffusion imaging, nor enhancement following contrast injection. Pituitary gland is not enlarged. Cavernous sinuses unremarkable. No evidence of significant cerebellar tonsillar ectopia. No masses in the cerebellar pontine angles. No evidence of microhemorrhages. No ring enhancing lesions in the brain and no abnormal meningeal enhancement, focal nor diffuse. IMPRESSION: 1. There are a few small nonspecific foci of white matter signal abnormality in the anterior forceps white matter of both frontal lobes. Largest of these measures 4-5 mm and is located in the right frontal lobe. These may be related to chronic ischemic sequelae or other nonspecific findings. These do not exhibit surrounding edema, signal abnormality on diffusion imaging, and also do not exhibit enhancement following contrast injection. 2. Incidentally noted is fluid in the left maxillary sinus indicating acute sinusitis. Right maxillary sinus is clear, as are the other paranasal sinuses and ethmoid air cells. Also, no fluid evident in the mastoid air cells. Appropriate follow up would be repeat non-CT scan in six months. Findings discussed by phone with the hospitalist on 07/19/2021 at 3:30 p.m. Dictated by: DUTCH MATHIS MD Transcribed by: ML 07/20/2113:04 [id number] Electronically Reviewed and Signed By: ASHLYN MATHIS MD 07/20/21 13:32 Copy for: 185 HEALTH INFORMATION MGMT DISCHARGED XR CHEST 2V PA AND LATERAL - Completed: 07/18/2021 22:47 LOINC: PA AND LATERAL??CHEST:Leads overlie the chest. The heart size is normal. The lungs are clear. No infiltrate, effusion or pneumothorax is seen. IMPRESSION:Negative chest x-ray. Dictated by: CEO KATELYN KELLOGG MD Transcribed by: ZULEIMA 07/18/2110:59 D June 8:34:35 AM [id number] Electronically Reviewed and Signed By: KATELYN KELLOGG MD 07/18/21 11:23 Copy for: 185 HEALTH INFORMATION MGMT Social History Type Status Start Date End Date Code Code Syst em Smoking History Never smoker (Never Smoked) 695356578 SNOMED CT Sex Female Vital Signs Vital Sign Value Unit Ulysses Value Ulysses Unit Date/Time Recent/Initial? Code Code System Body Mass Index 35.15 kg/m2 07/18/2021 05:54 Initial 23157 -5 LOINC Systolic Blood Pressure 108 mm[Hg] 07/19/2021 16:06 Most Recent 8480- 6 LOINC Diastolic Blood Pressure 76 mm[Hg] 07/19/2021 16:06 Most Recent 8462- 4 LOINC Systolic Blood Pressure 154 mm[Hg] 07/18/2021 05:54 Initial 8480- 6 LOINC Diastolic Blood Pressure 108 mm[Hg] 07/18/2021 05:54 Initial 8462- 4 LOINC Body Surface Area 1.86 m2 07/18/2021 05:54 Initial 3140- 1 LOINC Height 152.400 0 cm 60.00 in 07/18/2021 05:54 Initial 8302- 2 LOINC O2 Saturation 99 % 2021 11:25 Most Recent 82600 -5 LOINC O2 Saturation 96 % 2021 05:54 Initial 08936 -5 LOINC Pulse 92.0 /min 07/19/2021 11:25 Most Recent 8867- 4 LOINC Pulse 102.0 /min 07/18/2021 05:54 Initial 8867- 4 LOINC Respiration 20 /min 07/19/19 11:25 Most Recent 9279- 1 LOINC Respiration 20 /min 07/18/19 05:54 Initial 9279- 1 LOINC Temperature 36.4 Thi 97.5 F 07/19/19 11:25 Most Recent 8310- 5 LOINC Temperature 37.3 Thi 99.1 F 07/18/19 05:54 Initial 8310- 5 LOINC Weight 81.65 kg 180.00 lbs 07/18/2021 05:54 Initial 95686 -7 [facility] Medications Medication Start Date End Date Route Frequency Dose Code Code System Medication Instructions Home Meds Metoprolol Succinate 100MG Oral Tablet, Extended Release 01/11/2019 07/18/2021 ORAL DAILY 100 MILLIGRAMS 705810 RxNorm TAKE 100 MILLIGRAMS ORAL DAILY PERCOCET 5MG-325MG ORAL TABLET 01/11/2019 07/18/2021 ORAL THREE TIMES A DAY 1 TABLET RxNorm TAKE 1 TABLET ORAL THREE TIMES A DAY Amitriptylin e HCl 100MG Oral Tablet 07/19/2021 Unknown ORAL BEDTIME 100 MILLIGRAMS 138928 RxNorm TAKE 100 MILLIGRAMS ORAL BEDTIME Cyclobenzapr ine 10MG Oral Tablet 07/19/2021 Unknown ORAL NEEDED THREE TIMES A DAY 10 MILLIGRAMS 547384 RxNorm TAKE 10 MILLIGRAMS ORAL NEEDED THREE TIMES A DAY Doxycycline 100MG Oral Capsule 07/19/2021 Unknown ORAL BEDTIME 100 MILLIGRAMS 3830116 RxNorm TAKE 100 MILLIGRAMS ORAL BEDTIME Gabapentin 800MG Oral Tablet 07/19/2021 Unknown ORAL BEDTIME 800 MILLIGRAMS 627319 RxNorm TAKE 800 MILLIGRAMS ORAL BEDTIME Loratadine 10MG Oral Tablet 07/19/2021 Unknown ORAL NEEDED DAILY 10 MILLIGRAMS 880476 RxNorm TAKE 10 MILLIGRAMS ORAL NEEDED DAILY Metoprolol Succinate 100MG Oral Tablet, Extended Release 07/19/2021 Unknown ORAL BEDTIME 100 MILLIGRAMS 528808 RxNorm TAKE 100 MILLIGRAMS ORAL BEDTIME Omeprazole 40MG Oral Capsule, Delayed Release 07/19/2021 Unknown ORAL BEDTIME 40 MILLIGRAMS 560325 RxNorm TAKE 40 MILLIGRAMS ORAL BEDTIME Percocet 5MG-325MG Oral Tablet 07/19/2021 Unknown ORAL NEEDED THREE TIMES A DAY 1 unit(s) 6142178 RxNorm TAKE 1 EACH ORAL NEEDED THREE TIMES A DAY SF 5000 Plus 1.1% Dental Cream 07/19/2021 04/19/2024 DENTAL NEEDED 1 unit(s) 315971 RxNorm 1 EACH DENTAL NEEDED Venlafaxine HCl 150MG Oral Capsule, Extended Release 07/19/2021 Unknown ORAL BEDTIME 150 MILLIGRAMS 842971 RxNorm TAKE 150 MILLIGRAMS ORAL BEDTIME Venlafaxine HCl 37.5MG Oral Tablet 07/19/2021 04/19/2024 ORAL BEDTIME 37.5 MILLIGRAMS 637129 RxNorm TAKE 37.5 MILLIGRAMS ORAL BEDTIME Voltaren Gel 1% Topical application Gel/Jelly 07/19/2021 Unknown TOPICA L APPLIC ATION TWICE A DAY 1 unit(s) 070584 RxNorm 1 EACH TOPICAL APPLICATION TWICE A DAY Zolpidem Tartrate 12.5MG Oral Tablet, Extended Release 07/19/2021 Unknown ORAL NEEDED AT BEDTIME 12.5 MILLIGRAMS 000476 RxNorm TAKE 12.5 MILLIGRAMS ORAL NEEDED AT BEDTIME diphenhydrAM INE HCl 25MG Oral Capsule 07/19/2021 Unknown ORAL DAILY 25 MILLIGRAMS 1101088 RxNorm TAKE 25 MILLIGRAMS ORAL DAILY hydrOXYzine HCl 25MG Oral Tablet 07/19/2021 04/19/2024 ORAL TWICE A DAY 75 MILLIGRAMS 751257 RxNorm TAKE 75 MILLIGRAMS ORAL TWICE A DAY hydroCHLOROt hiazide 12.5MG Oral Tablet 07/19/2021 04/19/2024 ORAL BEDTIME 12.5 MILLIGRAMS 870270 RxNorm TAKE 12.5 MILLIGRAMS ORAL BEDTIME Percocet 5MG-325MG Oral Tablet 09/18/2022 Unknown ORAL NEEDED EVERY 4 HOURS 7303429 RxNorm TAKE 1-2 TABLET ORAL NEEDED EVERY 4 HOURS Flomax 0.4MG Oral Capsule 09/18/2022 Unknown ORAL DAILY 1 CAPSULE 593309 RxNorm TAKE 1 CAPSULE ORAL DAILY UNTIL STONE PASSES Ibuprofen 200MG Oral Tablet 09/18/2022 04/19/2024 ORAL EVERY 6 HOURS 3 TABLET 499777 RxNorm TAKE 3 TABLET ORAL EVERY 6 HOURS NEEDED FOR PAIN UNTIL STONE PASSES Ondansetron 4MG Oral Tablet, Disintegrati ng 04/18/2024 Unknown ORAL NEEDED EVERY 4 HOURS 1 TABLET 906661 RxNorm TAKE 1 TABLET ORAL NEEDED EVERY 4 HOURS Cefpodoxime Proxetil 200MG Oral Tablet 04/18/2024 Unknown ORAL TWICE A DAY 1 TABLET 600066 RxNorm TAKE 1 TABLET ORAL TWICE A DAY Assessment You had the following problems:HYPERTENSIONPTSDSYNCOPECHEST PAINWEAKNESSURETEROLITHIASIS Hospital Discharge Instructions Should you have any questions prior to discharge, please contact a member of your healthcare team. If you have left the hospital and have any questions, please contact your primary care physician. Reason For Referral No Data Found Procedures Procedure Name Date Status Code Code Syste m Surgery on facial bone completed 81924644 SN OMEDCT Surgery on facial bone completed 13776930 SN OMEDCT Carpal tunnel release completed 30745304 SNO MEDCT Problems Problem Start Date Resolved Date Status Code Code System HYPERTENSION active 84671228 SNOMED- CT PTSD active 92958410 SNOMED-CT SYNCOPE active 661267924 SNOMED-CT CHEST PAIN active 31793844 SNOMED-CT WEAKNESS active 82803357 SNOMED-CT URETEROLITHIASIS active 45509514 SNO MED-CT MIGRAINE 07/18/2021 resolved 93050019 SNOMED-CT CARPAL TUNNEL 07/18/2021 resolved 02076589 SNOME D-CT CHRONIC PAIN 07/18/2021 resolved 77487884 SNOMED -CT TONSILLITIS 07/18/2021 resolved 28320045 SNOMED- CT TMJ SYNDROME 07/18/2021 resolved 742812443 SNOMED -CT FIBROMYALGIA 07/18/2021 resolved 113296543 SNOMED -CT 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 18216728 SNOMED -CT 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 88608224 SNOMED-CT ANXIETY 07/18/2021 resolved 72418498 SNOMED-CT DEPRESSION 07/18/2021 resolved 62539790 SNOMED-C T ACID REFLUX 07/18/2021 resolved 249985482 SNOMED- CT CHRONIC PAIN 07/18/2021 resolved 63404316 SNOMED -CT HYPERTENSION 07/18/2021 resolved 60076787 SNOMED -CT Allergies and Adverse Reactions Allergy Substance Reaction Severity Start Date Concern Status Code Code System SULFA (sulfonamide) Vomiting (SNOMED-CT: 466925853) Active 39532539 SNOMED-CT PENICILLIN G Hives (SNOMED-CT: 248781251) Moderate Active 7980 RxNorm SHELLFISH Anaphylaxis (SNOMED-CT: 97322433) Active 547095821 SNOMED-CT FISH PROTEIN Anaphylaxis (SNOMED-CT: 30982958) Active 21256157 SNOMED-CT TOPAMAX Active 428996 RxNorm Plan of Treatment MM SCREEN BILAT 07/02/2022 PRE-OP COVID-19 TESTING 08/13/2021 MM SCREEN BILAT 05/28/2021 Plan Discharge to home, no changes in medications. Recommended patient follow up regarding her MRI scan with neurology, she [facility] to do [facility] at [facility]. Recommended repeat in six months. Recommended outpatient cardiac stress test with family history of sudden though her cardiac monitoring and workup, including ECHO, were normal this visit. Recommended followup with her primary care provider in the next week who can help arrange necessary outpatient followup/testing. Medications given this visit: Ordered & Completed Meds Table Ordered Medication Start Date/Time Dosage Route Frequency Status ASPIRIN TABLET CHEWABLE: 81MG 07/18/2021 05:33 324 MG CHEW X1 completed ONDANSETRON INJ SDV: 4MG/2ML 07/18/2021 13:17 4 MG IV PUSH X1 completed ACETAMINOPHEN INJ SDV: 1000MG/100ML 07/18/2021 13:17 400 ml/hr IV PIGGYBACK X1 completed ACETAMINOPHEN INJ SDV: 1000MG/100ML 07/18/2021 17:16 400 ml/hr IV PIGGYBACK PRN Q6H active PANTOPRAZOLE TABLET: 40MG 07/18/2021 21:00 40 MG ORALLY BEDTIME active hydroCHLOROthiazide TABLET: 25MG 07/18/2021 21:00 25 MG ORALLY BEDTIME active ZOLPIDEM TABLET: 5MG 07/18/2021 21:00 10 MG ORALLY PRN BEDTIME active CYCLOBENZAPRINE TABLET: 10MG 07/18/2021 17:29 10 MG ORALLY PRN TID active METOPROLOL SUCCINATE TABLET ER: 50MG 07/18/2021 21:00 100 MG ORALLY BEDTIME active SODIUM CHLORIDE 0.9% FLUSH 10ML SYRINGE 07/18/2021 17:16 2 ML IV PUSH Q8H active ACETAMINOPHEN TABLET: 325MG 07/18/2021 17:16 650 MG ORALLY PRN Q4H active DOXYCYCLINE TABLET: 100MG 07/18/2021 21:00 100 MG ORALLY BEDTIME active GABAPENTIN CAPSULE: 400MG 07/18/2021 21:00 800 MG ORALLY BEDTIME active DiphenhydrAMINE CAP: 25MG 07/18/2021 17:29 25 MG ORALLY DAILY active OxyCODONE/ACETAMINOPHEN TAB: 5MG/325MG 07/18/2021 17:29 1 TAB ORALLY PRN TID active VENLAFAXINE XR CAPSULE: 37.5MG 07/18/2021 21:00 37.5 MG ORALLY BEDTIME active VENLAFAXINE XR CAPSULE: 75MG 07/18/2021 21:00 150 MG ORALLY BEDTIME active AMITRIPTYLINE TABLET: 25MG 07/18/2021 18:39 100 MG ORALLY BEDTIME active LORazepam TABLET: 0.5MG 07/18/2021 22:25 1 MG ORALLY PRN X1 active ONDANSETRON INJ SDV: 4MG/2ML 07/18/2021 17:16 4 MG IV PUSH PRN Q4H completed AMITRIPTYLINE TABLET: 10MG 07/18/2021 21:00 10 MG ORALLY BEDTIME completed HydrOXYzine HCL TABLET: 10MG 07/18/2021 20:00 75 MG ORALLY BID completed HydrOXYzine PAMOATE CAPSULE: 25MG 07/19/2021 07:50 75 MG ORALLY BID active LORazepam TABLET: 0.5MG 07/19/2021 11:26 1 MG ORALLY X1 completed Discharge Medications: No changes from admission. Discharge Medications hydroCHLOROthiazide 12.5MG Oral Tablet hydrOXYzine HCl 25MG Oral Tablet diphenhydrAMINE HCl 25MG Oral Capsule Zolpidem Tartrate 12.5MG Oral Tablet, Extended Release Voltaren Gel 1% Topical application Gel/Jelly Venlafaxine HCl 37.5MG Oral Tablet Venlafaxine HCl 150MG Oral Capsule, Extended Release SF 5000 Plus 1.1% Dental Cream Percocet 5MG-325MG Oral Tablet Omeprazole 40MG Oral Capsule, Delayed Release Metoprolol Succinate 100MG Oral Tablet, Extended Release Loratadine 10MG Oral Tablet Gabapentin 800MG Oral Tablet Doxycycline 100MG Oral Capsule Cyclobenzaprine 10MG Oral Tablet Amitriptyline HCl 100MG Oral Tablet Encounters Encounter Diagnosis Start Date Code Code Sys tem Syncope and collapse 07/18/2021 SNOMED- CT Personal Care Team Section Performer Name Performer Role Active Date Inactive Da te Discharge Summary Notes History and Physical Notes
--- OUTSIDE RECORDS SUMMARY | 2024-04-22 21:56 | XMS_ITS ---
Author Organization Unknown Address [address] [place] [address] [phone] Phone Care Team Providers Care Experimental Technician Name Role Phone KATIE West Attending Unavailable [...] Dictated by: JONNATHAN ROMERO MD Transcribed by: [facility] 08/08/2114:08 D July 11:50:29 AM [id number] Electronically Reviewed and Signed By: APRIL ROMERO MD 08/08/21 14:45 Copy for: [address] [place] [address] INFORMATION MGMT XR SHOULDER 2+ VIEWS LT* - C ompleted: 08/08/2021 14:10 LOINC: LEFT SHOULDER Three views. Comparison 05/05/19. The acromioclavicular and glenohumeral joints are well maintained. The bones are intact and normally mineralized. The soft tissues are unremarkable. IMPRESSION: No acute abnormality. Dictated by: JONNATHAN ROMERO MD Transcribed by: [facility] 08/08/2112:19 D July 10:53:30 AM [id number] Electronically Reviewed and Signed By: APRIL ROMERO MD 08/08/21 14:45 Copy for: 185 HEALTH INFORMATION MGMT Social History Type Status Start Date End Date Code Code Syst em Smoking History Never smoker (Never Smoked) 603683856 SNOMED CT Sex Female Medications Medication Start Date End Date Route Frequency Dose Code Code System Medication Instructions Home Meds Amitriptyline HCl 100MG Oral Tablet 07/19/2021 Unknown ORAL BEDTIME 100 MILLIGRAMS 817829 RxNorm TAKE 100 MILLIGRAMS ORAL BEDTIME Cyclobenzaprine 10MG Oral Tablet 07/19/2021 Unknown ORAL NEEDED THREE TIMES A DAY 10 MILLIGRAMS 964451 RxNorm TAKE 10 MILLIGRAMS ORAL NEEDED THREE TIMES A DAY Doxycycline 100MG Oral Capsule 07/19/2021 Unknown ORAL BEDTIME 100 MILLIGRAMS 4066618 RxNorm TAKE 100 MILLIGRAMS ORAL BEDTIME Gabapentin 800MG Oral Tablet 07/19/2021 Unknown ORAL BEDTIME 800 MILLIGRAMS 112627 RxNorm TAKE 800 MILLIGRAMS ORAL BEDTIME Loratadine 10MG Oral Tablet 07/19/2021 Unknown ORAL NEEDED DAILY 10 MILLIGRAMS 075454 RxNorm TAKE 10 MILLIGRAMS ORAL NEEDED DAILY Metoprolol Succinate 100MG Oral Tablet, Extended Release 07/19/2021 Unknown ORAL BEDTIME 100 MILLIGRAMS 175454 RxNorm TAKE 100 MILLIGRAMS ORAL BEDTIME Omeprazole 40MG Oral Capsule, Delayed Release 07/19/2021 Unknown ORAL BEDTIME 40 MILLIGRAMS 275461 RxNorm TAKE 40 MILLIGRAMS ORAL BEDTIME Percocet 5MG-325MG Oral Tablet 07/19/2021 Unknown ORAL NEEDED THREE TIMES A DAY 1 unit(s) 2442311 RxNorm TAKE 1 EACH ORAL NEEDED THREE TIMES A DAY SF 5000 Plus 1.1% Dental Cream 07/19/2021 04/19/20 24 DENTAL NEEDED 1 unit(s) 674340 RxNorm 1 EACH DENTAL NEEDED Venlafaxine HCl 150MG Oral Capsule, Extended Release 07/19/2021 Unknown ORAL BEDTIME 150 MILLIGRAMS 893413 RxNorm TAKE 150 MILLIGRAMS ORAL BEDTIME Venlafaxine HCl 37.5MG Oral Tablet 07/19/2021 04/19/20 24 ORAL BEDTIME 37.5 MILLIGRAMS 476864 RxNorm TAKE 37.5 MILLIGRAMS ORAL BEDTIME Voltaren Gel 1% Topical application Gel/Jelly 07/19/2021 Unknown TOPICA L APPLIC ATION TWICE A DAY 1 unit(s) 485981 RxNorm 1 EACH TOPICAL APPLICATION TWICE A DAY Zolpidem Tartrate 12.5MG Oral Tablet, Extended Release 07/19/2021 Unknown ORAL NEEDED AT BEDTIME 12.5 MILLIGRAMS 350895 RxNorm TAKE 12.5 MILLIGRAMS ORAL NEEDED AT BEDTIME diphenhydrAMINE HCl 25MG Oral Capsule 07/19/2021 Unknown ORAL DAILY 25 MILLIGRAMS 3586350 RxNorm TAKE 25 MILLIGRAMS ORAL DAILY hydrOXYzine HCl 25MG Oral Tablet 07/19/2021 04/19/20 24 ORAL TWICE A DAY 75 MILLIGRAMS 159488 RxNorm TAKE 75 MILLIGRAMS ORAL TWICE A DAY hydroCHLOROthia zide 12.5MG Oral Tablet 07/19/2021 04/19/20 24 ORAL BEDTIME 12.5 MILLIGRAMS 859593 RxNorm TAKE 12.5 MILLIGRAMS ORAL BEDTIME Percocet 5MG-325MG Oral Tablet 09/18/2022 Unknown ORAL NEEDED EVERY 4 HOURS 2673308 RxNorm TAKE 1-2 TABLET ORAL NEEDED EVERY 4 HOURS Flomax 0.4MG Oral Capsule 09/18/2022 Unknown ORAL DAILY 1 CAPSULE 102134 RxNorm TAKE 1 CAPSULE ORAL DAILY UNTIL STONE PASSES Ibuprofen 200MG Oral Tablet 09/18/2022 04/19/20 24 ORAL EVERY 6 HOURS 3 TABLET 518358 RxNorm TAKE 3 TABLET ORAL EVERY 6 HOURS NEEDED FOR PAIN UNTIL STONE PASSES Ondansetron 4MG Oral Tablet, Disintegrating 04/18/2024 Unknown ORAL NEEDED EVERY 4 HOURS 1 TABLET 249071 RxNorm TAKE 1 TABLET ORAL NEEDED EVERY 4 HOURS Cefpodoxime Proxetil 200MG Oral Tablet 04/18/2024 Unknown ORAL TWICE A DAY 1 TABLET 315362 RxNorm TAKE 1 TABLET ORAL TWICE A [...] Date Status Code Code System HYPERTENSION active 25155625 SNOMED- CT PTSD active 10792297 SNOMED-CT SYNCOPE active 109514324 SNOMED-CT CHEST PAIN active 89882639 SNOMED-CT WEAKNESS active 26193945 SNOMED-CT URETEROLITHIASIS active 99775735 SNO MED-CT MIGRAINE 07/18/2021 resolved 37207117 SNOMED-CT CARPAL TUNNEL 07/18/2021 resolved 39306969 SNOME D-CT CHRONIC PAIN 07/18/2021 resolved 14065534 SNOMED -CT TONSILLITIS 07/18/2021 resolved 66859536 SNOMED- CT TMJ SYNDROME 07/18/2021 resolved 327017810 SNOMED -CT FIBROMYALGIA 07/18/2021 resolved 504432631 SNOMED -CT 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 87680972 SNOMED -CT 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 00617137 SNOMED-CT ANXIETY 07/18/2021 resolved 19797002 SNOMED-CT DEPRESSION 07/18/2021 resolved 80190451 SNOMED-C T ACID REFLUX 07/18/2021 resolved 961127425 SNOMED- CT CHRONIC PAIN 07/18/2021 resolved 09750891 SNOMED -CT HYPERTENSION 07/18/2021 resolved 54083310 SNOMED -CT Allergies and Adverse Reactions Allergy Substance Reaction Severity Start Date Concern Status Code Code System SULFA (sulfonamide) Vomiting (SNOMED-CT: 290802036) Active 24349266 SNOMED-CT PENICILLIN G Hives (SNOMED-CT: 928289641) Moderate Active 7980 RxNorm SHELLFISH Anaphylaxis (SNOMED-CT: 49402136) Active 066935110 SNOMED-CT FISH PROTEIN Anaphylaxis (SNOMED-CT: 14688960) Active 54432620 SNOMED-CT TOPAMAX Active 442809 RxNorm Plan of Treatment MM SCREEN BILAT 07/02/2022 PRE-OP COVID-19 TESTING 08/13/2021 MM SCREEN BILAT 05/28/2021 Encounters Encounter Diagnosis Start Date Code Code Sys tem Injury of shoulder and upper arm 08/08/2021 94797903 6 SNOMED-CT Personal Care Team Section Performer Name Performer Role Active Date Inactive Da te
--- OUTSIDE RECORDS SUMMARY | 2024-04-22 21:56 | XMS_ITS ---
Author Organization Unknown Address [address] [place] [address] [phone] Phone Care Team Providers Care Apprentice Carpenter Name Role Phone EROS Aguilar Attending Unavailable RADHIKA Dhillon Primary Unavailable Results XR ELBOW LT 3V MIN* - Comple kiarra: 07/31/2021 12:08 LOINC: LEFT ELBOW - 3 VIEWS:Compari son is made with 02/17/19. No bone, joint or soft tissue abnormality is identified. Dictated by: JONNATHAN ROMERO MD Transcribed by: ZULEIMA 07/31/2112:43 D Saturday, July 31, 2021 11:30:55 AM [id number] Electronically Reviewed and Signed By: APRIL ROMERO MD 08/01/21 12:46 Copy for: 185 HEALTH INFORMATION MGMT Social History Type Status Start Date End Date Code Code Syst em Smoking History Never smoker (Never Smoked) [id number] SNOMED CT Sex Female Medications Medication Start Date End Date Route Frequency Dose Code Code System Medication Instructions Home Meds Amitriptyline HCl 100MG Oral Tablet 07/19/2021 Unknown ORAL BEDTIME 100 MILLIGRAMS 606807 RxNorm TAKE 100 MILLIGRAMS ORAL BEDTIME Cyclobenzaprine 10MG Oral Tablet 07/19/2021 Unknown ORAL NEEDED THREE TIMES A DAY 10 MILLIGRAMS 531767 RxNorm TAKE 10 MILLIGRAMS ORAL NEEDED THREE TIMES A DAY Doxycycline 100MG Oral Capsule 07/19/2021 Unknown ORAL BEDTIME 100 MILLIGRAMS 5954826 RxNorm TAKE 100 MILLIGRAMS ORAL BEDTIME Gabapentin 800MG Oral Tablet 07/19/2021 Unknown ORAL BEDTIME 800 MILLIGRAMS 691566 RxNorm TAKE 800 MILLIGRAMS ORAL BEDTIME Loratadine 10MG Oral Tablet 07/19/2021 Unknown ORAL NEEDED DAILY 10 MILLIGRAMS 138201 RxNorm TAKE 10 MILLIGRAMS ORAL NEEDED DAILY Metoprolol Succinate 100MG Oral Tablet, Extended Release 07/19/2021 Unknown ORAL BEDTIME 100 MILLIGRAMS 612498 RxNorm TAKE 100 MILLIGRAMS ORAL BEDTIME Omeprazole 40MG Oral Capsule, Delayed Release 07/19/2021 Unknown ORAL BEDTIME 40 MILLIGRAMS 393531 RxNorm TAKE 40 MILLIGRAMS ORAL BEDTIME Percocet 5MG-325MG Oral Tablet 07/19/2021 Unknown ORAL NEEDED THREE TIMES A DAY 1 unit(s) 3055984 RxNorm TAKE 1 EACH ORAL NEEDED THREE TIMES A DAY SF 5000 Plus 1.1% Dental Cream 07/19/2021 04/19/20 24 DENTAL NEEDED 1 unit(s) 869279 RxNorm 1 EACH DENTAL NEEDED Venlafaxine HCl 150MG Oral Capsule, Extended Release 07/19/2021 Unknown ORAL BEDTIME 150 MILLIGRAMS 732952 RxNorm TAKE 150 MILLIGRAMS ORAL BEDTIME Venlafaxine HCl 37.5MG Oral Tablet 07/19/2021 04/19/20 24 ORAL BEDTIME 37.5 MILLIGRAMS 175685 RxNorm TAKE 37.5 MILLIGRAMS ORAL BEDTIME Voltaren Gel 1% Topical application Gel/Jelly 07/19/2021 Unknown TOPICA L APPLIC ATION TWICE A DAY 1 unit(s) 818335 RxNorm 1 EACH TOPICAL APPLICATION TWICE A DAY Zolpidem Tartrate 12.5MG Oral Tablet, Extended Release 07/19/2021 Unknown ORAL NEEDED AT BEDTIME 12.5 MILLIGRAMS 466439 RxNorm TAKE 12.5 MILLIGRAMS ORAL NEEDED AT BEDTIME diphenhydrAMINE HCl 25MG Oral Capsule 07/19/2021 Unknown ORAL DAILY 25 MILLIGRAMS 1857328 RxNorm TAKE 25 MILLIGRAMS ORAL DAILY hydrOXYzine HCl 25MG Oral Tablet 07/19/2021 04/19/20 24 ORAL TWICE A DAY 75 MILLIGRAMS 150117 RxNorm TAKE 75 MILLIGRAMS ORAL TWICE A DAY hydroCHLOROthia zide 12.5MG Oral Tablet 07/19/2021 04/19/20 24 ORAL BEDTIME 12.5 MILLIGRAMS 585960 RxNorm TAKE 12.5 MILLIGRAMS ORAL BEDTIME Percocet 5MG-325MG Oral Tablet 09/18/2022 Unknown ORAL NEEDED EVERY 4 HOURS 3132654 RxNorm TAKE 1-2 TABLET ORAL NEEDED EVERY 4 HOURS Flomax 0.4MG Oral Capsule 09/18/2022 Unknown ORAL DAILY 1 CAPSULE 434835 RxNorm TAKE 1 CAPSULE ORAL DAILY UNTIL STONE PASSES Ibuprofen 200MG Oral Tablet 09/18/2022 04/19/20 24 ORAL EVERY 6 HOURS 3 TABLET 062154 RxNorm TAKE 3 TABLET ORAL EVERY 6 HOURS NEEDED FOR PAIN UNTIL STONE PASSES Ondansetron 4MG Oral Tablet, Disintegrating 04/18/2024 Unknown ORAL NEEDED EVERY 4 HOURS 1 TABLET 134749 RxNorm TAKE 1 TABLET ORAL NEEDED EVERY 4 HOURS Cefpodoxime Proxetil 200MG Oral Tablet 04/18/2024 Unknown ORAL TWICE A DAY 1 TABLET 347209 RxNorm TAKE 1 TABLET ORAL TWICE A [...] Date Status Code Code System HYPERTENSION active 83159567 SNOMED- CT PTSD active 22039333 SNOMED-CT SYNCOPE active 982051192 SNOMED-CT CHEST PAIN active 34222358 SNOMED-CT WEAKNESS active 25315730 SNOMED-CT URETEROLITHIASIS active 68216867 SNO MED-CT MIGRAINE 07/18/2021 resolved 67172319 SNOMED-CT CARPAL TUNNEL 07/18/2021 resolved 86764817 SNOME D-CT CHRONIC PAIN 07/18/2021 resolved 45608975 SNOMED -CT TONSILLITIS 07/18/2021 resolved 69584957 SNOMED- CT TMJ SYNDROME 07/18/2021 resolved 214731652 SNOMED -CT FIBROMYALGIA 07/18/2021 resolved 276853459 SNOMED -CT 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 25075384 SNOMED -CT 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 86573342 SNOMED-CT ANXIETY 07/18/2021 resolved 93438093 SNOMED-CT DEPRESSION 07/18/2021 resolved 59905693 SNOMED-C T ACID REFLUX 07/18/2021 resolved 123645639 SNOMED- CT CHRONIC PAIN 07/18/2021 resolved 80289213 SNOMED -CT HYPERTENSION 07/18/2021 resolved 21799798 SNOMED -CT Allergies and Adverse Reactions Allergy Substance Reaction Severity Start Date Concern Status Code Code System SULFA (sulfonamide) Vomiting (SNOMED-CT: 872495824) Active 30472497 SNOMED-CT PENICILLIN G Hives (SNOMED-CT: 698603013) Moderate Active 7980 RxNorm SHELLFISH Anaphylaxis (SNOMED-CT: 40730807) Active 667141311 SNOMED-CT FISH PROTEIN Anaphylaxis (SNOMED-CT: 81000592) Active 63468417 SNOMED-CT TOPAMAX Active 364246 RxNorm Plan of Treatment MM SCREEN BILAT 07/02/2022 PRE-OP COVID-19 TESTING 08/13/2021 MM SCREEN BILAT 05/28/2021 Encounters Encounter Diagnosis Start Date Code Code Sys tem 07/31/2021 [id number] SNOMED-CT Personal Care Team Section Performer Name Performer Role Active Date Inactive Colin epstein
--- OUTSIDE RECORDS SUMMARY | 2024-04-22 21:57 | XMS_ITS ---
Author Organization Unknown Address [address] [place] [address] [phone] Phone Care Team Providers Care Technician Test Systems Name Role Phone KATIE West Attending Unavailable RADHIKA Dhillon Primary Unavailable Social History Type Status Start Date End Date Code Code Syst em Smoking History Never smoker (Never Smoked) 623705231 SNOMED CT Sex Female Medications Medication Start Date End Date Route Frequency Dose Code Code System Medication Instructions Home Meds Amitriptyline HCl 100MG Oral Tablet 07/19/2021 Unknown ORAL BEDTIME 100 MILLIGRAMS 948979 RxNorm TAKE 100 MILLIGRAMS ORAL BEDTIME Cyclobenzaprine 10MG Oral Tablet 07/19/2021 Unknown ORAL NEEDED THREE TIMES A DAY 10 MILLIGRAMS 096952 RxNorm TAKE 10 MILLIGRAMS ORAL NEEDED THREE TIMES A DAY Doxycycline 100MG Oral Capsule 07/19/2021 Unknown ORAL BEDTIME 100 MILLIGRAMS 3722173 RxNorm TAKE 100 MILLIGRAMS ORAL BEDTIME Gabapentin 800MG Oral Tablet 07/19/2021 Unknown ORAL BEDTIME 800 MILLIGRAMS 215644 RxNorm TAKE 800 MILLIGRAMS ORAL BEDTIME Loratadine 10MG Oral Tablet 07/19/2021 Unknown ORAL NEEDED DAILY 10 MILLIGRAMS 678028 RxNorm TAKE 10 MILLIGRAMS ORAL NEEDED DAILY Metoprolol Succinate 100MG Oral Tablet, Extended Release 07/19/2021 Unknown ORAL BEDTIME 100 MILLIGRAMS 228025 RxNorm TAKE 100 MILLIGRAMS ORAL BEDTIME Omeprazole 40MG Oral Capsule, Delayed Release 07/19/2021 Unknown ORAL BEDTIME 40 MILLIGRAMS 20020807 RxNorm TAKE 40 MILLIGRAMS ORAL BEDTIME Percocet 5MG-325MG Oral Tablet 07/19/2021 Unknown ORAL NEEDED THREE TIMES A DAY 1 unit(s) 8377048 RxNorm TAKE 1 EACH ORAL NEEDED THREE TIMES A DAY SF 5000 Plus 1.1% Dental Cream 07/19/2021 04/19/20 24 DENTAL NEEDED 1 unit(s) 338131 RxNorm 1 EACH DENTAL NEEDED Venlafaxine HCl 150MG Oral Capsule, Extended Release 07/19/2021 Unknown ORAL BEDTIME 150 MILLIGRAMS 587290 RxNorm TAKE 150 MILLIGRAMS ORAL BEDTIME Venlafaxine HCl 37.5MG Oral Tablet 07/19/2021 04/19/20 24 ORAL BEDTIME 37.5 MILLIGRAMS 900397 RxNorm TAKE 37.5 MILLIGRAMS ORAL BEDTIME Voltaren Gel 1% Topical application Gel/Jelly 07/19/2021 Unknown TOPICA L APPLIC ATION TWICE A DAY 1 unit(s) 343244 RxNorm 1 EACH TOPICAL APPLICATION TWICE A DAY Zolpidem Tartrate 12.5MG Oral Tablet, Extended Release 07/19/2021 Unknown ORAL NEEDED AT BEDTIME 12.5 MILLIGRAMS 639459 RxNorm TAKE 12.5 MILLIGRAMS ORAL NEEDED AT BEDTIME diphenhydrAMINE HCl 25MG Oral Capsule 07/19/2021 Unknown ORAL DAILY 25 MILLIGRAMS 9146238 RxNorm TAKE 25 MILLIGRAMS ORAL DAILY hydrOXYzine HCl 25MG Oral Tablet 07/19/2021 04/19/20 24 ORAL TWICE A DAY 75 MILLIGRAMS 505245 RxNorm TAKE 75 MILLIGRAMS ORAL TWICE A DAY hydroCHLOROthia zide 12.5MG Oral Tablet 07/19/2021 04/19/20 24 ORAL BEDTIME 12.5 MILLIGRAMS 595231 RxNorm TAKE 12.5 MILLIGRAMS ORAL BEDTIME Percocet 5MG-325MG Oral Tablet 09/18/2022 Unknown ORAL NEEDED EVERY 4 HOURS 5687026 RxNorm TAKE 1-2 TABLET ORAL NEEDED EVERY 4 HOURS Flomax 0.4MG Oral Capsule 09/18/2022 Unknown ORAL DAILY 1 CAPSULE 513681 RxNorm TAKE 1 CAPSULE ORAL DAILY UNTIL STONE PASSES Ibuprofen 200MG Oral Tablet 09/18/2022 04/19/20 24 ORAL EVERY 6 HOURS 3 TABLET 557783 RxNorm TAKE 3 TABLET ORAL EVERY 6 HOURS NEEDED FOR PAIN UNTIL STONE PASSES Ondansetron 4MG Oral Tablet, Disintegrating 04/18/2024 Unknown ORAL NEEDED EVERY 4 HOURS 1 TABLET 577458 RxNorm TAKE 1 TABLET ORAL NEEDED EVERY 4 HOURS Cefpodoxime Proxetil 200MG Oral Tablet 04/18/2024 Unknown ORAL TWICE A DAY 1 TABLET 185107 RxNorm TAKE 1 TABLET ORAL TWICE A [...] Date Status Code Code System HYPERTENSION active 52024877 SNOMED- CT PTSD active 98789384 SNOMED-CT SYNCOPE active 992316546 SNOMED-CT CHEST PAIN active 89120018 SNOMED-CT WEAKNESS active 35692906 SNOMED-CT URETEROLITHIASIS active 71366290 SNO MED-CT MIGRAINE 07/18/2021 resolved 77927749 SNOMED-CT CARPAL TUNNEL 07/18/2021 resolved 13664614 SNOME D-CT CHRONIC PAIN 07/18/2021 resolved 31675820 SNOMED -CT TONSILLITIS 07/18/2021 resolved 06427981 SNOMED- CT TMJ SYNDROME 07/18/2021 resolved 471313794 SNOMED -CT FIBROMYALGIA 07/18/2021 resolved 682488427 SNOMED -CT 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 27311624 SNOMED -CT 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 10120159 SNOMED-CT ANXIETY 07/18/2021 resolved 29419861 SNOMED-CT DEPRESSION 07/18/2021 resolved 64710139 SNOMED-C T ACID REFLUX 07/18/2021 resolved 162375556 SNOMED- CT CHRONIC PAIN 07/18/2021 resolved 29632928 SNOMED -CT HYPERTENSION 07/18/2021 resolved 19158292 SNOMED -CT Allergies and Adverse Reactions Allergy Substance Reaction Severity Start Date Concern Status Code Code System SULFA (sulfonamide) Vomiting (SNOMED-CT: 168056038) Active 74254156 SNOMED-CT PENICILLIN G Hives (SNOMED-CT: 608565511) Moderate Active 7980 RxNorm SHELLFISH Anaphylaxis (SNOMED-CT: 14334155) Active 319995098 SNOMED-CT FISH PROTEIN Anaphylaxis (SNOMED-CT: 56187924) Active 04858207 SNOMED-CT TOPAMAX Active 473616 RxNorm Plan of Treatment MM SCREEN BILAT 07/02/2022 PRE-OP COVID-19 TESTING 08/13/2021 MM SCREEN BILAT 05/28/2021 Encounters Encounter Diagnosis Start Date Code Code Sys tem Tendinosis of right shoulder 09/10/2021 [id number] 42959 SNOMED-CT Personal Care Team Section Performer Name Performer Role Active Date Inactive Colin epstein
--- OUTSIDE RECORDS SUMMARY | 2024-04-22 21:57 | XMS_ITS ---
Author Organization Unknown Address [address] [place] [address] [phone] Phone Care Team Providers Care Repairer Welding Equipment Name Role Phone COSME Heart Attending Unavailable RADHIKA Dhillon Primary Unavailable Results MM SCREENING BILAT MAMMO W T LONA W CAD - Completed: 07/02/2022 10:15 LOINC: [place], [place] [address] PACS SCIENCE AND OPERATIONS OFFICER REPORT Patient Name: THONG HESTER MRN: Sex: : Age: [id number] F [id number] Account: Accession: Admit: StayType: [id number] 07/02/2022 O/P Ordered: Order ID: Submitted: Ordering Provider: 07/02/2022 09:[id number] [facility] ANTONIA AGUIAR Completed: Technologist: Resulted: 07/02/2022 [...] em Smoking History Never smoker (Never Smoked) 976405335 SNOMED CT Sex Female Medications Medication Start Date End Date Route Frequency Dose Code Code System Medication Instructions Home Meds Amitriptyline HCl 100MG Oral Tablet 07/19/2021 Unknown ORAL BEDTIME 100 MILLIGRAMS 982823 RxNorm TAKE 100 MILLIGRAMS ORAL BEDTIME Cyclobenzaprine 10MG Oral Tablet 07/19/2021 Unknown ORAL NEEDED THREE TIMES A DAY 10 MILLIGRAMS 352728 RxNorm TAKE 10 MILLIGRAMS ORAL NEEDED THREE TIMES A DAY Doxycycline 100MG Oral Capsule 07/19/2021 Unknown ORAL BEDTIME 100 MILLIGRAMS 6146135 RxNorm TAKE 100 MILLIGRAMS ORAL BEDTIME Gabapentin 800MG Oral Tablet 07/19/2021 Unknown ORAL BEDTIME 800 MILLIGRAMS 536396 RxNorm TAKE 800 MILLIGRAMS ORAL BEDTIME Loratadine 10MG Oral Tablet 07/19/2021 Unknown ORAL NEEDED DAILY 10 MILLIGRAMS 316414 RxNorm TAKE 10 MILLIGRAMS ORAL NEEDED DAILY Metoprolol Succinate 100MG Oral Tablet, Extended Release 07/19/2021 Unknown ORAL BEDTIME 100 MILLIGRAMS 036546 RxNorm TAKE 100 MILLIGRAMS ORAL BEDTIME Omeprazole 40MG Oral Capsule, Delayed Release 07/19/2021 Unknown ORAL BEDTIME 40 MILLIGRAMS 193279 RxNorm TAKE 40 MILLIGRAMS ORAL BEDTIME Percocet 5MG-325MG Oral Tablet 07/19/2021 Unknown ORAL NEEDED THREE TIMES A DAY 1 unit(s) 6128843 RxNorm TAKE 1 EACH ORAL NEEDED THREE TIMES A DAY SF 5000 Plus 1.1% Dental Cream 07/19/2021 04/19/20 24 DENTAL NEEDED 1 unit(s) 893926 RxNorm 1 EACH DENTAL NEEDED Venlafaxine HCl 150MG Oral Capsule, Extended Release 07/19/2021 Unknown ORAL BEDTIME 150 MILLIGRAMS 717850 RxNorm TAKE 150 MILLIGRAMS ORAL BEDTIME Venlafaxine HCl 37.5MG Oral Tablet 07/19/2021 04/19/20 24 ORAL BEDTIME 37.5 MILLIGRAMS 202007 RxNorm TAKE 37.5 MILLIGRAMS ORAL BEDTIME Voltaren Gel 1% Topical application Gel/Jelly 07/19/2021 Unknown TOPICA L APPLIC ATION TWICE A DAY 1 unit(s) 473411 RxNorm 1 EACH TOPICAL APPLICATION TWICE A DAY Zolpidem Tartrate 12.5MG Oral Tablet, Extended Release 07/19/2021 Unknown ORAL NEEDED AT BEDTIME 12.5 MILLIGRAMS 934297 RxNorm TAKE 12.5 MILLIGRAMS ORAL NEEDED AT BEDTIME diphenhydrAMINE HCl 25MG Oral Capsule 07/19/2021 Unknown ORAL DAILY 25 MILLIGRAMS 4837083 RxNorm TAKE 25 MILLIGRAMS ORAL DAILY hydrOXYzine HCl 25MG Oral Tablet 07/19/2021 04/19/20 24 ORAL TWICE A DAY 75 MILLIGRAMS 154131 RxNorm TAKE 75 MILLIGRAMS ORAL TWICE A DAY hydroCHLOROthia zide 12.5MG Oral Tablet 07/19/2021 04/19/20 24 ORAL BEDTIME 12.5 MILLIGRAMS 709742 RxNorm TAKE 12.5 MILLIGRAMS ORAL BEDTIME Percocet 5MG-325MG Oral Tablet 09/18/2022 Unknown ORAL NEEDED EVERY 4 HOURS 8645273 RxNorm TAKE 1-2 TABLET ORAL NEEDED EVERY 4 HOURS Flomax 0.4MG Oral Capsule 09/18/2022 Unknown ORAL DAILY 1 CAPSULE 490485 RxNorm TAKE 1 CAPSULE ORAL DAILY UNTIL STONE PASSES Ibuprofen 200MG Oral Tablet 09/18/2022 04/19/20 24 ORAL EVERY 6 HOURS 3 TABLET 128105 RxNorm TAKE 3 TABLET ORAL EVERY 6 HOURS NEEDED FOR PAIN UNTIL STONE PASSES Ondansetron 4MG Oral Tablet, Disintegrating 04/18/2024 Unknown ORAL NEEDED EVERY 4 HOURS 1 TABLET 744033 RxNorm TAKE 1 TABLET ORAL NEEDED EVERY 4 HOURS Cefpodoxime Proxetil 200MG Oral Tablet 04/18/2024 Unknown ORAL TWICE A DAY 1 TABLET 164342 RxNorm TAKE 1 TABLET ORAL TWICE A [...] Date Status Code Code System HYPERTENSION active 47443233 SNOMED- CT PTSD active 62451785 SNOMED-CT SYNCOPE active 279637449 SNOMED-CT CHEST PAIN active 47908186 SNOMED-CT WEAKNESS active 87406232 SNOMED-CT URETEROLITHIASIS active 16890722 SNO MED-CT MIGRAINE 07/18/2021 resolved 32832792 SNOMED-CT CARPAL TUNNEL 07/18/2021 resolved 59737176 SNOME D-CT CHRONIC PAIN 07/18/2021 resolved 91452261 SNOMED -CT TONSILLITIS 07/18/2021 resolved 90110103 SNOMED- CT TMJ SYNDROME 07/18/2021 resolved 752277435 SNOMED -CT FIBROMYALGIA 07/18/2021 resolved 561736693 SNOMED -CT 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 52709067 SNOMED -CT 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 26515677 SNOMED-CT ANXIETY 07/18/2021 resolved 21993941 SNOMED-CT DEPRESSION 07/18/2021 resolved 05061201 SNOMED-C T ACID REFLUX 07/18/2021 resolved 727889453 SNOMED- CT CHRONIC PAIN 07/18/2021 resolved 18450130 SNOMED -CT HYPERTENSION 07/18/2021 resolved 22158922 SNOMED -CT Allergies and Adverse Reactions Allergy Substance Reaction Severity Start Date Concern Status Code Code System SULFA (sulfonamide) Vomiting (SNOMED-CT: 070375150) Active 57027159 SNOMED-CT PENICILLIN G Hives (SNOMED-CT: 378747052) Moderate Active 7980 RxNorm SHELLFISH Anaphylaxis (SNOMED-CT: 25631419) Active 823769057 SNOMED-CT FISH PROTEIN Anaphylaxis (SNOMED-CT: 57645337) Active 08972274 SNOMED-CT TOPAMAX Active 386004 RxNorm Plan of Treatment MM SCREEN BILAT 07/02/2022 PRE-OP COVID-19 TESTING 08/13/2021 MM SCREEN BILAT 05/28/2021 Encounters Encounter Diagnosis Start Date Code Code Sys tem Encounter for screening mamm ogram for malignant neoplasm of breast 07/02/2022 SNOMED-CT Personal Care Team Section Performer Name Performer Role Active Date Inactive Da te
--- OUTSIDE RECORDS SUMMARY | 2024-04-22 21:57 | XMS_ITS ---
Author Organization Unknown Address [address] [place] [address] [phone] Phone Care Team Providers Care Asbestos Cement Sheet Supervisor Name Role Phone COSME Heart Attending Unavailable RADHIKA Dhillon Primary Unavailable Results GRAM STAIN* - Collect Date/T herb: 07/16/2022 11:35 [facility] ID: [id number] [address] [place], [place], [id number] LOINC: 664-3 Test Value Unit Reference Range Code Code System Flag SOURCE- Other WBC s none seen [employer] No bacteria seen Social History Type Status Start Date End Date Code Code Syst em Smoking History Never smoker (Never Smoked) 934747375 SNOMED CT Sex Female Medications Medication Start Date End Date Route Frequency Dose Code Code System Medication Instructions Home Meds Amitriptyline HCl 100MG Oral Tablet 07/19/2021 Unknown ORAL BEDTIME 100 MILLIGRAMS 570490 RxNorm TAKE 100 MILLIGRAMS ORAL BEDTIME Cyclobenzaprine 10MG Oral Tablet 07/19/2021 Unknown ORAL NEEDED THREE TIMES A DAY 10 MILLIGRAMS 604630 RxNorm TAKE 10 MILLIGRAMS ORAL NEEDED THREE TIMES A DAY Doxycycline 100MG Oral Capsule 07/19/2021 Unknown ORAL BEDTIME 100 MILLIGRAMS 0927274 RxNorm TAKE 100 MILLIGRAMS ORAL BEDTIME Gabapentin 800MG Oral Tablet 07/19/2021 Unknown ORAL BEDTIME 800 MILLIGRAMS 735337 RxNorm TAKE 800 MILLIGRAMS ORAL BEDTIME Loratadine 10MG Oral Tablet 07/19/2021 Unknown ORAL NEEDED DAILY 10 MILLIGRAMS 343763 RxNorm TAKE 10 MILLIGRAMS ORAL NEEDED DAILY Metoprolol Succinate 100MG Oral Tablet, Extended Release 07/19/2021 Unknown ORAL BEDTIME 100 MILLIGRAMS 881072 RxNorm TAKE 100 MILLIGRAMS ORAL BEDTIME Omeprazole 40MG Oral Capsule, Delayed Release 07/19/2021 Unknown ORAL BEDTIME 40 MILLIGRAMS 657771 RxNorm TAKE 40 MILLIGRAMS ORAL BEDTIME Percocet 5MG-325MG Oral Tablet 07/19/2021 Unknown ORAL NEEDED THREE TIMES A DAY 1 unit(s) 3132121 RxNorm TAKE 1 EACH ORAL NEEDED THREE TIMES A DAY SF 5000 Plus 1.1% Dental Cream 07/19/2021 04/19/20 24 DENTAL NEEDED 1 unit(s) 840999 RxNorm 1 EACH DENTAL NEEDED Venlafaxine HCl 150MG Oral Capsule, Extended Release 07/19/2021 Unknown ORAL BEDTIME 150 MILLIGRAMS 383193 RxNorm TAKE 150 MILLIGRAMS ORAL BEDTIME Venlafaxine HCl 37.5MG Oral Tablet 07/19/2021 04/19/20 24 ORAL BEDTIME 37.5 MILLIGRAMS 004687 RxNorm TAKE 37.5 MILLIGRAMS ORAL BEDTIME Voltaren Gel 1% Topical application Gel/Jelly 07/19/2021 Unknown TOPICA L APPLIC ATION TWICE A DAY 1 unit(s) 691858 RxNorm 1 EACH TOPICAL APPLICATION TWICE A DAY Zolpidem Tartrate 12.5MG Oral Tablet, Extended Release 07/19/2021 Unknown ORAL NEEDED AT BEDTIME 12.5 MILLIGRAMS 835826 RxNorm TAKE 12.5 MILLIGRAMS ORAL NEEDED AT BEDTIME diphenhydrAMINE HCl 25MG Oral Capsule 07/19/2021 Unknown ORAL DAILY 25 MILLIGRAMS 0500711 RxNorm TAKE 25 MILLIGRAMS ORAL DAILY hydrOXYzine HCl 25MG Oral Tablet 07/19/2021 04/19/20 24 ORAL TWICE A DAY 75 MILLIGRAMS 957074 RxNorm TAKE 75 MILLIGRAMS ORAL TWICE A DAY hydroCHLOROthia zide 12.5MG Oral Tablet 07/19/2021 04/19/20 24 ORAL BEDTIME 12.5 MILLIGRAMS 139109 RxNorm TAKE 12.5 MILLIGRAMS ORAL BEDTIME Percocet 5MG-325MG Oral Tablet 09/18/2022 Unknown ORAL NEEDED EVERY 4 HOURS 9166539 RxNorm TAKE 1-2 TABLET ORAL NEEDED EVERY 4 HOURS Flomax 0.4MG Oral Capsule 09/18/2022 Unknown ORAL DAILY 1 CAPSULE 177751 RxNorm TAKE 1 CAPSULE ORAL DAILY UNTIL STONE PASSES Ibuprofen 200MG Oral Tablet 09/18/2022 04/19/20 24 ORAL EVERY 6 HOURS 3 TABLET 242131 RxNorm TAKE 3 TABLET ORAL EVERY 6 HOURS NEEDED FOR PAIN UNTIL STONE PASSES Ondansetron 4MG Oral Tablet, Disintegrating 04/18/2024 Unknown ORAL NEEDED EVERY 4 HOURS 1 TABLET 241736 RxNorm TAKE 1 TABLET ORAL NEEDED EVERY 4 HOURS Cefpodoxime Proxetil 200MG Oral Tablet 04/18/2024 Unknown ORAL TWICE A DAY 1 TABLET 538327 RxNorm TAKE 1 TABLET ORAL TWICE A [...] Date Status Code Code System HYPERTENSION active 94295688 SNOMED- CT PTSD active 85215091 SNOMED-CT SYNCOPE active 604434535 SNOMED-CT CHEST PAIN active 55983693 SNOMED-CT WEAKNESS active 31085427 SNOMED-CT URETEROLITHIASIS active 13374889 SNO MED-CT MIGRAINE 07/18/2021 resolved 55655932 SNOMED-CT CARPAL TUNNEL 07/18/2021 resolved 43725901 SNOME D-CT CHRONIC PAIN 07/18/2021 resolved 47536895 SNOMED -CT TONSILLITIS 07/18/2021 resolved 69726504 SNOMED- CT TMJ SYNDROME 07/18/2021 resolved 491318522 SNOMED -CT FIBROMYALGIA 07/18/2021 resolved 495210009 SNOMED -CT 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 35490627 SNOMED -CT 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 65765378 SNOMED-CT ANXIETY 07/18/2021 resolved 85905587 SNOMED-CT DEPRESSION 07/18/2021 resolved 00809403 SNOMED-C T ACID REFLUX 07/18/2021 resolved 479754716 SNOMED- CT CHRONIC PAIN 07/18/2021 resolved 72023860 SNOMED -CT HYPERTENSION 07/18/2021 resolved 68727772 SNOMED -CT Allergies and Adverse Reactions Allergy Substance Reaction Severity Start Date Concern Status Code Code System SULFA (sulfonamide) Vomiting (SNOMED-CT: 128678813) Active 87736708 SNOMED-CT PENICILLIN G Hives (SNOMED-CT: 060634451) Moderate Active 7980 RxNorm SHELLFISH Anaphylaxis (SNOMED-CT: 90991760) Active 445537776 SNOMED-CT FISH PROTEIN Anaphylaxis (SNOMED-CT: 82331103) Active 89505124 SNOMED-CT TOPAMAX Active 339800 RxNorm Plan of Treatment MM SCREEN BILAT 07/02/2022 PRE-OP COVID-19 TESTING 08/13/2021 MM SCREEN BILAT 05/28/2021 Encounters Encounter Diagnosis Start Date Code Code Sys tem Encounter for general adult medical examination without abnormal findings 07/16/2022 SNOMED-CT Personal Care Team Section Performer Name Performer Role Active Date Inactive Da lucian
--- OUTSIDE RECORDS SUMMARY | 2024-04-22 21:57 | XMS_ITS ---
Author Organization Unknown Address [address] [place] [phone] Phone Care Team Providers Care Enlisted Advisor Name Role Phone [facility] Attending Unavailable RADHIKA Dhillon Primary Unavailable Social History Type Status Start Date End Date Code Code Syst em Smoking History Never smoker (Never Smoked) 870725025 SNOMED CT Sex Female Medications Medication Start Date End Date Route Frequency Dose Code Code System Medication Instructions Home Meds hydrOXYzine Pamoate 25MG Oral Capsule 05/12/2016 07/18/2021 ORAL TWICE A DAY 25 MILLIGRAMS 866055 RxNorm TAKE 25 MILLIGRAMS ORAL TWICE A DAY Amitriptyline 100MG Oral Tablet 05/12/2016 07/18/2021 ORAL EVERY EVENING 100 MILLIGRAMS 946760 RxNorm TAKE 100 MILLIGRAMS ORAL EVERY EVENING Famotidine 20MG Oral Tablet 01/11/2019 07/18/2021 ORAL TWICE A DAY 20 MILLIGRAMS 652191 RxNorm TAKE 20 MILLIGRAMS ORAL TWICE A DAY Gabapentin 800MG Oral Tablet 01/11/2019 07/18/2021 ORAL FOUR TIMES A DAY 800 MILLIGRAMS 076697 RxNorm TAKE 800 MILLIGRAMS ORAL FOUR TIMES A DAY Metoprolol Succinate 100MG Oral Tablet, Extended Release 01/11/2019 07/18/2021 ORAL DAILY 100 MILLIGRAMS 292572 RxNorm TAKE 100 MILLIGRAMS ORAL DAILY PERCOCET 5MG-325MG ORAL TABLET 01/11/2019 07/18/2021 ORAL THREE TIMES A DAY 1 TABLET RxNorm TAKE 1 TABLET ORAL THREE TIMES A DAY Amitriptyline HCl 100MG Oral Tablet 07/19/2021 Unknown ORAL BEDTIME 100 MILLIGRAMS 939215 RxNorm TAKE 100 MILLIGRAMS ORAL BEDTIME Cyclobenzapri ne 10MG Oral Tablet 07/19/2021 Unknown ORAL NEEDED THREE TIMES A DAY 10 MILLIGRAMS 169297 RxNorm TAKE 10 MILLIGRAMS ORAL NEEDED THREE TIMES A DAY Doxycycline 100MG Oral Capsule 07/19/2021 Unknown ORAL BEDTIME 100 MILLIGRAMS 8149205 RxNorm TAKE 100 MILLIGRAMS ORAL BEDTIME Gabapentin 800MG Oral Tablet 07/19/2021 Unknown ORAL BEDTIME 800 MILLIGRAMS 591626 RxNorm TAKE 800 MILLIGRAMS ORAL BEDTIME Loratadine 10MG Oral Tablet 07/19/2021 Unknown ORAL NEEDED DAILY 10 MILLIGRAMS 818024 RxNorm TAKE 10 MILLIGRAMS ORAL NEEDED DAILY Metoprolol Succinate 100MG Oral Tablet, Extended Release 07/19/2021 Unknown ORAL BEDTIME 100 MILLIGRAMS 940074 RxNorm TAKE 100 MILLIGRAMS ORAL BEDTIME Omeprazole 40MG Oral Capsule, Delayed Release 07/19/2021 Unknown ORAL BEDTIME 40 MILLIGRAMS 622241 RxNorm TAKE 40 MILLIGRAMS ORAL BEDTIME Percocet 5MG-325MG Oral Tablet 07/19/2021 Unknown ORAL NEEDED THREE TIMES A DAY 1 unit(s) 8548819 RxNorm TAKE 1 EACH ORAL NEEDED THREE TIMES A DAY SF 5000 Plus 1.1% Dental Cream 07/19/2021 04/19/2024 DENTAL NEEDED 1 unit(s) 561883 RxNorm 1 EACH DENTAL NEEDED Venlafaxine HCl 150MG Oral Capsule, Extended Release 07/19/2021 Unknown ORAL BEDTIME 150 MILLIGRAMS 846923 RxNorm TAKE 150 MILLIGRAMS ORAL BEDTIME Venlafaxine HCl 37.5MG Oral Tablet 07/19/2021 04/19/2024 ORAL BEDTIME 37.5 MILLIGRAMS 669698 RxNorm TAKE 37.5 MILLIGRAMS ORAL BEDTIME Voltaren Gel 1% Topical application Gel/Jelly 07/19/2021 Unknown TOPICA L APPLIC ATION TWICE A DAY 1 unit(s) 673217 RxNorm 1 EACH TOPICAL APPLICATION TWICE A DAY Zolpidem Tartrate 12.5MG Oral Tablet, Extended Release 07/19/2021 Unknown ORAL NEEDED AT BEDTIME 12.5 MILLIGRAMS 308408 RxNorm TAKE 12.5 MILLIGRAMS ORAL NEEDED AT BEDTIME diphenhydrAMI NE HCl 25MG Oral Capsule 07/19/2021 Unknown ORAL DAILY 25 MILLIGRAMS 8900861 RxNorm TAKE 25 MILLIGRAMS ORAL DAILY hydrOXYzine HCl 25MG Oral Tablet 07/19/2021 04/19/2024 ORAL TWICE A DAY 75 MILLIGRAMS 142045 RxNorm TAKE 75 MILLIGRAMS ORAL TWICE A DAY hydroCHLOROth iazide 12.5MG Oral Tablet 07/19/2021 04/19/2024 ORAL BEDTIME 12.5 MILLIGRAMS 303074 RxNorm TAKE 12.5 MILLIGRAMS ORAL BEDTIME Percocet 5MG-325MG Oral Tablet 09/18/2022 Unknown ORAL NEEDED EVERY 4 HOURS 0402646 RxNorm TAKE 1-2 TABLET ORAL NEEDED EVERY 4 HOURS Flomax 0.4MG Oral Capsule 09/18/2022 Unknown ORAL DAILY 1 CAPSULE 224615 RxNorm TAKE 1 CAPSULE ORAL DAILY UNTIL STONE PASSES Ibuprofen 200MG Oral Tablet 09/18/2022 04/19/2024 ORAL EVERY 6 HOURS 3 TABLET 726883 RxNorm TAKE 3 TABLET ORAL EVERY 6 HOURS NEEDED FOR PAIN UNTIL STONE PASSES Ondansetron 4MG Oral Tablet, Disintegratin g 04/18/2024 Unknown ORAL NEEDED EVERY 4 HOURS 1 TABLET 695685 RxNorm TAKE 1 TABLET ORAL NEEDED EVERY 4 HOURS Cefpodoxime Proxetil 200MG Oral Tablet 04/18/2024 Unknown ORAL TWICE A DAY 1 TABLET 933848 RxNorm TAKE 1 TABLET ORAL TWICE A [...] Date Status Code Code System HYPERTENSION active 70647348 SNOMED- CT PTSD active 54789110 SNOMED-CT SYNCOPE active 830579730 SNOMED-CT CHEST PAIN active 95900289 SNOMED-CT WEAKNESS active 22601808 SNOMED-CT URETEROLITHIASIS active 25862182 SNO MED-CT MIGRAINE 07/18/2021 resolved 84079403 SNOMED-CT CARPAL TUNNEL 07/18/2021 resolved 86177789 SNOME D-CT CHRONIC PAIN 07/18/2021 resolved 22764069 SNOMED -CT TONSILLITIS 07/18/2021 resolved 43658756 SNOMED- CT TMJ SYNDROME 07/18/2021 resolved 204127512 SNOMED -CT FIBROMYALGIA 07/18/2021 resolved 006850776 SNOMED -CT 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 92158100 SNOMED -CT 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 06279050 SNOMED-CT ANXIETY 07/18/2021 resolved 41564442 SNOMED-CT DEPRESSION 07/18/2021 resolved 78522236 SNOMED-C T ACID REFLUX 07/18/2021 resolved 615033446 SNOMED- CT CHRONIC PAIN 07/18/2021 resolved 21031610 SNOMED -CT HYPERTENSION 07/18/2021 resolved 37843442 SNOMED -CT Allergies and Adverse Reactions Allergy Substance Reaction Severity Start Date Concern Status Code Code System SULFA (sulfonamide) Vomiting (SNOMED-CT: 370975987) Active 92170654 SNOMED-CT PENICILLIN G Hives (SNOMED-CT: 997467821) Moderate Active 7980 RxNorm SHELLFISH Anaphylaxis (SNOMED-CT: 69467927) Active 176817687 SNOMED-CT FISH PROTEIN Anaphylaxis (SNOMED-CT: 01333300) Active 50181034 SNOMED-CT TOPAMAX Active 121839 RxNorm Plan of Treatment MM SCREEN BILAT 07/02/2022 PRE-OP COVID-19 TESTING 08/13/2021 MM SCREEN BILAT 05/28/2021 Encounters Encounter Diagnosis Start Date Code Code Sys tem Syncope and collapse 07/18/2021 SNOMED- CT Personal Care Team Section Performer Name Performer Role Active Date Inactive Da lucian
--- OUTSIDE RECORDS SUMMARY | 2024-04-22 21:58 | XMS_ITS ---
Author Organization Unknown Address [address] [place] [phone] Phone Care Team Providers Care Fisher Quahog Name Role Phone TESSA DOUGHERTY Registered Nurse Unavailable ERON White Attending Unavailable WILVER ORELLANA Unavailable RADHIKA Dhillon Primary Unavailable UNLISTED PROVIDER - REQUESTED Xhandoff Un available Results URINALYSIS WITH REFLEX CULT IF POSITIVE* - Collect Date/Time: 04/18/2024 18:54 [facility] ID: [id number] [address] [place], [place], [address] LOINC: 20981-1 Test Value Unit Reference Range Code Code System Flag COLLECTION MODE: CLEAN CATCH 71195-3 LOINC Color YELLOW yellow 5778-6 LOINC Appearance HAZY clear 5767-9 LOINC Glucose urine NEGATIVE negative mg/dl 91678-0 LOINC Bilirubin NEGATIVE negative 5770-3 LOINC Ketones NEGATIVE negative mg/dl 2514-8 LOINC Spec gravity 1.025 1.003 - 1.030 5811-5 LOINC pH urine 6.0 5.0 - 7.0 2756-5 LOINC Protein 30 negative mg/dl 80796-3 LOINC A Urobilinogen 1.0 <or= 1 EU/dl 72258-5 LOINC A Nitrite. NEGATIVE negative 5802-4 LOINC Blood LARGE negative 5794-3 LOINC A Leukocytes. SMALL negative A MICROSCOPIC INDICATED WBCs. 5-10 0-5 / hpf 70520-3 LOINC RBCs >100 0-5 / hpf 91290-8 LOINC Epith cells 0-5 0-5 / hpf 99175-8 LOINC Cell types squamous Crystals none none Bacteria minimal none Mucus none none 8247-9 LOINC Casts none none /lpf 72882-0 LOINC Other 72734-9 LOINC BASIC METABOLIC PANEL (BMP) - Collect Date/Time: 04/18/2024 18:54 [facility] ID: [id number] [address] [place], [place], [address] LOINC: 32991-3 Test Value Unit Reference Range Code Code System Flag GLUCOSE 130 mg/dL L=70 H=116 2345-7 LOINC H BUN 16 mg/dL L=6 H=25 3094-0 LOINC CREATININE 1.00 mg/dL L=0.51 H=0.95 2160-0 LOINC H SODIUM SERUM 135 mmol/L L=136 H=145 2951-2 LOINC L POTASSIUM SERUM 2.9 mmol/L L=3.4 H=5.2 2823-3 LOINC LL CHLORIDE SERUM 100 mmol/L L=96 H=110 2075-0 LOINC CARBON DIOXIDE (CO2) 26 mmol/L L=22 H=34 2028-9 LOINC ANION GAP 9.5 mmol/L 56382-0 LOINC CALCIUM SERUM 9.0 mg/dL L=8.2 H=10.2 34911-9 LOINC AGE 49 years eGFR (non-Afr.Amer.) 59 mL/min 62795-8 LOINC eGFR (Afr-Macanese) 71 mL/min 58151-7 LOINC CBC W/ DIFFERENTIAL* - Colle ct Date/Time: 04/18/2024 18:54 [facility] ID: [id number] [address] [place] [address], [address] LOINC: 14013-5 Test Value Unit Reference Range Code Code System Flag WBC 13.79 th/cmm L=5.00 H=10.00 6690-2 LOINC H NEUT % 61.3 % L=40.0 H=80.0 LYMPH % 28.9 % L=10.0 H=50.0 MONO % 7.9 % L=2.0 H=12.0 79142-1 LOINC EOS % 1.2 % L=0.0 H=8.0 BASO % 0.4 % L=0.0 H=3.0 IG % 0.3 % L=0.0 H=1.1 2514-8 LOINC NRBC % 0.0 % L=0.0 H=0.0 68473-9 LOINC NEUT abs count 8.5 th/cmm L=1.6 H=8.4 751-8 LOINC H LYMPH abs count 4.0 th/cmm L=1.5 H=4.0 731-0 LOINC MONO abs count 1.1 th/cmm L=0.2 H=1.0 742-7 LOINC H EOS abs count 0.2 th/cmm L=0.0 H=0.5 711-2 LOINC BASO abs count 0.1 th/cmm L=0.0 H=0.2 704-7 LOINC IG abs count 0.0 th/cmm L=0.0 H=0.1 13541-2 LOINC NRBC abs count 0.0 mil/cmm L=0.0 H=0.0 53748-8 LOINC RBC 4.63 mil/cmm L=3.90 H=5.40 789-8 LOINC HEMOGLOBIN 14.8 gm/dL L=12.0 H=16.0 718-7 LOINC HEMATOCRIT 44 % L=37 H=47 4544-3 LOINC MCV 96 fL L=82 H=92 787-2 LOINC H MCH 32.0 pg L=27.0 H=31.0 785-6 LOINC H MCHC 33.4 % L=32.0 H=36.0 786-4 LOINC RDW-SD 46.3 fL L=39.0 H=49.0 788-0 LOINC PLATELET COUNT 299 th/cmm L=150 H=450 777-[address] ABD PELVIS WO IV OR ORAL CONTRAST - Completed: 04/18/2024 19:27 LOINC: [facility] [place], [place] [address] RADIOLOG[facility] [employer] ARCHITECT REPORT Patient Name: THONG HESTER MRN: Sex: : Age: [id number] F [id number] 49 Account: Accession: Admit: StayType: [id number] 04/18/2024 E Ordered: Order ID: Submitted: Ordering Provider: 04/18/2024 19:07 [id number] LALI JULIETHGAY NAYLOR Completed: Technologist: Resulted: 04/18/2024 19:13 KVK 04/18/2024 19:44 EXAMINATION: CT ABD PELVIS WO IV OR ORAL CONTRAST CLINICAL HISTORY: Reason for Abdomen: Left Flank Pain Add'l Info: ? stones (as entered by ordering provider in the order requisition) TECHNIQUE: Helical CT of the abdomen and pelvis without intravenous contrast. Oral contrast was not administered. Multiplanar reformatted images were generated. COMPARISON: Abdomen/pelvis CT 08/04/2021 FINDINGS: The absence of intravenous contrast limits the evaluation of solid viscera and vasculature. Lower chest: There are coronary artery calcifications. Liver: Normal size and attenuation. Bile ducts: Limited evaluation of the intrahepatic bile ducts in the absence of IV contrast. No extrahepatic biliary dilatation. Gallbladder: No calcified stones. Normal caliber wall. Pancreas: Normal attenuation. Spleen: Normal size. Adrenals: Normal. Right kidney/ureter: No collecting system dilatation. Multiple sub-3 mm punctate nonobstructing renal calculi. Left kidney/ureter: There is a 2-3 mm distal ureteral calculus without hydroureteronephrosis. Multiple sub-3 mm punctate nonobstructing renal calculi. There is mild periureteral stranding. Urinary Bladder: Decompressed which limits evaluation. No calculus. Vasculature: No abdominal aortic aneurysm. Lymph Nodes: No enlarged lymph nodes. Bowel: Nondilated, no wall thickening. Normal appendix. Peritoneum and retroperitoneum: No free fluid or loculated fluid collection. No pneumoperitoneum. Abdominal wall: Normal. Reproductive organs: Normal contours of the uterus and adnexae. Osseous structures: No suspicious lesions. IMPRESSION: 1. Left 2-3 mm distal ureteral calculus without hydroureteronephrosis. However, there is mild periureteral stranding. Recommend correlation with urinalysis. 2. Multiple nonobstructing punctate renal calculus bilaterally. Preliminary report signed by: Daryn Woods MD at 04/18/2024 7:36 PM Thank you for letting us participate in the care of this patient. If you are a health care provider and have any questions regarding this report, please contact the number below. For patients who have questions please contact the health campground caretaker that requested your imaging first. Social History Type Status Start Date End Date Code Code Syst em Smoking History Never smoker (Never Smoked) [id number] SNOMED CT Sex Female Vital Signs Vital Sign Value Unit [place] Value [place] Unit Date/Time Recent/Initial? Code Code System Body Mass Index 29.95 kg/m2 04/18/2024 18:40 Initial 65490 -5 LOINC Systolic Blood Pressure 143 mm[Hg] 04/18/2024 21:03 Most Recent 8480- 6 LOINC Diastolic Blood Pressure 59 mm[Hg] 04/18/2024 21:03 Most Recent 8462- 4 LOINC Systolic Blood Pressure 166 mm[Hg] 04/18/2024 18:40 Initial 8480- 6 LOINC Diastolic Blood Pressure 97 mm[Hg] 04/18/2024 18:40 Initial 8462- 4 LOINC Body Surface Area 1.94 m2 04/18/2024 18:40 Initial 3140- 1 LOINC Height 165.100 0 cm 65.00 in 04/18/2024 18:40 Initial 8302- 2 LOINC O2 Saturation 97 % 2023 21:03 Most Recent 19290 -5 LOINC O2 Saturation 100 % 2023 18:40 Initial 33089 -5 LOINC Pulse 68.0 /min 04/18/2024 21:03 Most Recent 8867- 4 LOINC Pulse 116.0 /min 04/18/2024 18:40 Initial 8867- 4 [facility] Respiration 16 /min 04/18/20 21:03 Most Recent 9279- 1 [facility] Respiration 16 /min 04/18/20 18:40 Initial 9279- 1 [facility] Temperature 2.2 Thi 36.0 F 04/18/20 18:40 Initial 8310- 5 [facility] Weight 81.65 kg 180.00 lbs 04/18/2024 18:40 Initial 03120 -7 [facility] Medications Medication Start Date End Date Route Frequency Dose Code Code System Medication Instructions Home Meds Amitriptyline HCl 100MG Oral Tablet 07/19/2021 Unknown ORAL BEDTIME 100 MILLIGRAMS 579235 RxNorm TAKE 100 MILLIGRAMS ORAL BEDTIME Cyclobenzaprine 10MG Oral Tablet 07/19/2021 Unknown ORAL NEEDED THREE TIMES A DAY 10 MILLIGRAMS 599926 RxNorm TAKE 10 MILLIGRAMS ORAL NEEDED THREE TIMES A DAY Doxycycline 100MG Oral Capsule 07/19/2021 Unknown ORAL BEDTIME 100 MILLIGRAMS 6446830 RxNorm TAKE 100 MILLIGRAMS ORAL BEDTIME Gabapentin 800MG Oral Tablet 07/19/2021 Unknown ORAL BEDTIME 800 MILLIGRAMS 091943 RxNorm TAKE 800 MILLIGRAMS ORAL BEDTIME Loratadine 10MG Oral Tablet 07/19/2021 Unknown ORAL NEEDED DAILY 10 MILLIGRAMS 970304 RxNorm TAKE 10 MILLIGRAMS ORAL NEEDED DAILY Metoprolol Succinate 100MG Oral Tablet, Extended Release 07/19/2021 Unknown ORAL BEDTIME 100 MILLIGRAMS 472121 RxNorm TAKE 100 MILLIGRAMS ORAL BEDTIME Omeprazole 40MG Oral Capsule, Delayed Release 07/19/2021 Unknown ORAL BEDTIME 40 MILLIGRAMS 509003 RxNorm TAKE 40 MILLIGRAMS ORAL BEDTIME Percocet 5MG-325MG Oral Tablet 07/19/2021 Unknown ORAL NEEDED THREE TIMES A DAY 1 unit(s) 3639990 RxNorm TAKE 1 EACH ORAL NEEDED THREE TIMES A DAY SF 5000 Plus 1.1% Dental Cream 07/19/2021 04/19/20 DENTAL NEEDED 1 unit(s) 208952 RxNorm 1 EACH DENTAL NEEDED Venlafaxine HCl 150MG Oral Capsule, Extended Release 07/19/2021 Unknown ORAL BEDTIME 150 MILLIGRAMS 190283 RxNorm TAKE 150 MILLIGRAMS ORAL BEDTIME Venlafaxine HCl 37.5MG Oral Tablet 07/19/2021 04/19/20 24 ORAL BEDTIME 37.5 MILLIGRAMS 370779 RxNorm TAKE 37.5 MILLIGRAMS ORAL BEDTIME Voltaren Gel 1% Topical application Gel/Jelly 07/19/2021 Unknown TOPICA L APPLIC ATION TWICE A DAY 1 unit(s) 548064 RxNorm 1 EACH TOPICAL APPLICATION TWICE A DAY Zolpidem Tartrate 12.5MG Oral Tablet, Extended Release 07/19/2021 Unknown ORAL NEEDED AT BEDTIME 12.5 MILLIGRAMS 342656 RxNorm TAKE 12.5 MILLIGRAMS ORAL NEEDED AT BEDTIME diphenhydrAMINE HCl 25MG Oral Capsule 07/19/2021 Unknown ORAL DAILY 25 MILLIGRAMS 9865742 RxNorm TAKE 25 MILLIGRAMS ORAL DAILY hydrOXYzine HCl 25MG Oral Tablet 07/19/2021 04/19/20 24 ORAL TWICE A DAY 75 MILLIGRAMS 826444 RxNorm TAKE 75 MILLIGRAMS ORAL TWICE A DAY hydroCHLOROthia zide 12.5MG Oral Tablet 07/19/2021 04/19/20 24 ORAL BEDTIME 12.5 MILLIGRAMS 887790 RxNorm TAKE 12.5 MILLIGRAMS ORAL BEDTIME Percocet 5MG-325MG Oral Tablet 09/18/2022 Unknown ORAL NEEDED EVERY 4 HOURS 7574465 RxNorm TAKE 1-2 TABLET ORAL NEEDED EVERY 4 HOURS Flomax 0.4MG Oral Capsule 09/18/2022 Unknown ORAL DAILY 1 CAPSULE 677010 RxNorm TAKE 1 CAPSULE ORAL DAILY UNTIL STONE PASSES Ibuprofen 200MG Oral Tablet 09/18/2022 04/19/20 24 ORAL EVERY 6 HOURS 3 TABLET 977147 RxNorm TAKE 3 TABLET ORAL EVERY 6 HOURS NEEDED FOR PAIN UNTIL STONE PASSES Ondansetron 4MG Oral Tablet, Disintegrating 04/18/2024 Unknown ORAL NEEDED EVERY 4 HOURS 1 TABLET 782279 RxNorm TAKE 1 TABLET ORAL NEEDED EVERY 4 HOURS Cefpodoxime Proxetil 200MG Oral Tablet 04/18/2024 Unknown ORAL TWICE A DAY 1 TABLET 995927 RxNorm TAKE 1 TABLET ORAL TWICE A [...] Date Status Code Code System HYPERTENSION active 88215525 SNOMED- CT PTSD active 37965738 SNOMED-CT SYNCOPE active 095365415 SNOMED-CT CHEST PAIN active 69574617 SNOMED-CT WEAKNESS active 99973902 SNOMED-CT URETEROLITHIASIS active 86417954 SNO MED-CT MIGRAINE 07/18/2021 resolved 74851232 SNOMED-CT CARPAL TUNNEL 07/18/2021 resolved 00872715 SNOME D-CT CHRONIC PAIN 07/18/2021 resolved 65365917 SNOMED -CT TONSILLITIS 07/18/2021 resolved 02956101 SNOMED- CT TMJ SYNDROME 07/18/2021 resolved 163333937 SNOMED -CT FIBROMYALGIA 07/18/2021 resolved 407032281 SNOMED -CT 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 98843804 SNOMED -CT 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 66417856 SNOMED-CT ANXIETY 07/18/2021 resolved 59020811 SNOMED-CT DEPRESSION 07/18/2021 resolved 08081440 SNOMED-C T ACID REFLUX 07/18/2021 resolved 990306782 SNOMED- CT CHRONIC PAIN 07/18/2021 resolved 88096265 SNOMED -CT HYPERTENSION 07/18/2021 resolved 18924215 SNOMED -CT Allergies and Adverse Reactions Allergy Substance Reaction Severity Start Date Concern Status Code Code System SULFA (sulfonamide) Vomiting (SNOMED-CT: 070776584) Active 09672846 SNOMED-CT PENICILLIN G Hives (SNOMED-CT: 398009465) Moderate Active 7980 RxNorm SHELLFISH Anaphylaxis (SNOMED-CT: 59174519) Active 130608335 SNOMED-CT FISH PROTEIN Anaphylaxis (SNOMED-CT: 91866370) Active 14576660 SNOMED-CT TOPAMAX Active 935535 RxNorm Plan of Treatment MM SCREEN BILAT 07/02/2022 PRE-OP COVID-19 TESTING 08/13/2021 MM SCREEN BILAT 05/28/2021 Encounters Encounter Diagnosis Start Date Code Code Sys tem Calculus of kidney and ureter 04/18/2024 030126843 SNOMED-CT Personal Care Team Section Performer Name Performer Role Active Date Inactive Da te
--- OUTSIDE RECORDS SUMMARY | 2024-04-22 21:58 | XMS_ITS ---
Author Organization Unknown Address [address] [place] [phone] Phone Care Team Providers Care Radiology Specialist Name Role Phone JENNIFER FARMER Registered Nurse Unavailable EAL White Attending Unavailable RADHIKA Dhillon Primary Unavailable UNLISTED PROVIDER - REQUESTED Xhandoff Un available Results BASIC METABOLIC PANEL (BMP) - Collect Date/Time: 09/18/2022 05:05 [facility] ID: [id number] [address] [place], [place], [address] LOINC: 88933-8 Test Value Unit Reference Range Code Code [...] H=34 2028-9 LOINC ANION GAP 8.5 mmol/L 59361-3 LOINC CALCIUM SERUM 8.8 mg/dL L=8.2 H=10.2 10294-8 LOINC AGE 47 years eGFR (non-Afr.Amer.) 54 mL/min 18881-4 LOINC eGFR (Afr-Ethiopian) 66 mL/min 50793-7 LOINC CBC W/ DIFFERENTIAL* - Colle ct Date/Time: 09/18/2022 05:05 [facility] ID: [id number] [address] [place], [place], [address] LOINC: 40794-1 Test Value Unit Reference Range Code Code System Flag WBC 10.47 th/cmm L=5.00 H=10.00 6690-2 LOINC H NEUT % 58.7 % L=40.0 H=80.0 LYMPH % 30.5 % L=10.0 H=50.0 MONO % 8.1 % L=2.0 H=12.0 40478-6 LOINC EOS % 1.5 % L=0.0 H=8.0 BASO % 0.6 % L=0.0 H=3.0 IG % 0.6 % L=0.0 H=1.1 2514-8 LOINC NRBC % 0.0 % L=0.0 H=0.0 43111-3 LOINC NEUT abs count 6.2 th/cmm L=1.6 H=8.4 751-8 LOINC LYMPH abs count 3.2 th/cmm L=1.5 H=4.0 731-0 LOINC MONO abs count 0.9 th/cmm L=0.2 H=1.0 742-7 LOINC EOS abs count 0.2 th/cmm L=0.0 H=0.5 711-2 LOINC BASO abs count 0.1 th/cmm L=0.0 H=0.2 704-7 LOINC IG abs count 0.1 th/cmm L=0.0 H=0.1 62068-1 LOINC NRBC abs count 0.0 mil/cmm L=0.0 H=0.0 52413-4 LOINC RBC 4.81 mil/cmm L=3.90 H=5.40 789-8 LOINC HEMOGLOBIN 14.8 gm/dL L=12.0 H=16.0 718-7 LOINC HEMATOCRIT 46 % L=37 H=47 4544-3 LOINC MCV 95 fL L=82 H=92 787-2 LOINC H MCH 30.8 pg L=27.0 H=31.0 785-6 LOINC MCHC 32.4 % L=32.0 H=36.0 786-4 LOINC RDW-SD 46.5 fL L=39.0 H=49.0 788-0 LOINC PLATELET COUNT 318 th/cmm L=150 H=450 777-3 LOINC URINALYSIS ROUTINE* - [facility] t Date/Time: 09/18/2022 05:03 [facility] ID: [id number] [address] [place], [place], [address] LOINC: Test Value Unit Reference Range Code Code System Flag COLLECTION MODE: CLEAN CATCH 06938-8 LOINC Color YELLOW yellow 5778-6 LOINC Appearance CLEAR clear 5767-9 LOINC Glucose urine NEGATIVE negative mg/dl 10387-0 LOINC Bilirubin NEGATIVE negative 5770-3 LOINC Ketones NEGATIVE negative mg/dl 2514-8 LOINC Spec gravity >=1.030 1.003 - 1.030 5811-5 LOINC pH urine 6.5 5.0 - 7.0 2756-5 LOINC Protein TRACE negative mg/dl 54857-0 LOINC Urobilinogen 0.2 <or= 1 EU/dl 58832-4 LOINC Nitrite NEGATIVE negative 5802-4 LOINC Blood SMALL negative 5794-3 LOINC A Leukocytes NEGATIVE negative 59196-9 LOINC MICROSCOPIC* INDICATED WBCs 0-5 0-5 / hpf 44814-1 LOINC RBCs 5-10 0-5 / hpf 39720-0 LOINC Epith cells 0-5 0-5 / hpf 14923-4 LOINC Cell types squamous Crystals none none Bacteria minimal none Mucus present none 8247-9 LOINC Casts none none /lpf 06568-4 LOINC Other 77373-7 LOINC Social History Type Status Start Date End Date Code Code Syst em Smoking History Never smoker (Never Smoked) 516781287 SNOMED CT Sex Female Vital Signs Vital Sign Value Unit [place] Value [place] Unit Date/Time Recent/Initial? Code Code System Body Mass Index 39.06 kg/m2 09/18/2022 04:47 Initial 63776 -5 LOINC Systolic Blood Pressure 158 mm[Hg] 09/18/2022 04:47 Initial 8480- 6 LOINC Diastolic Blood Pressure 110 mm[Hg] 09/18/2022 04:47 Initial 8462- 4 [facility] Body Surface Area 1.96 m2 09/18/2022 04:47 Initial 3140- 1 LOINC Height 152.400 0 cm 60.00 in 09/18/2022 04:47 Initial 8302- 2 INC O2 Saturation 99 % 2022 04:47 Initial 58592 -5 [facility] Pulse 92.0 /min 09/18/2022 04:47 Initial 8867- 4 LOINC Respiration 18 /min 09/19/19 04:47 Initial 9279- 1 INC Temperature 36.2 Thi 97.2 F 09/19/19 04:47 Initial 8310- 5 [facility] Weight 90.72 kg 200.00 lbs 09/18/2022 04:47 Initial 44473 -7 [facility] Medications Medication Start Date End Date Route Frequency Dose Code Code System Medication Instructions Home Meds Amitriptyline HCl 100MG Oral Tablet 07/19/2021 Unknown ORAL BEDTIME 100 MILLIGRAMS 624799 RxNorm TAKE 100 MILLIGRAMS ORAL BEDTIME Cyclobenzaprine 10MG Oral Tablet 07/19/2021 Unknown ORAL NEEDED THREE TIMES A DAY 10 MILLIGRAMS 573801 RxNorm TAKE 10 MILLIGRAMS ORAL NEEDED THREE TIMES A DAY Doxycycline 100MG Oral Capsule 07/19/2021 Unknown ORAL BEDTIME 100 MILLIGRAMS 9604246 RxNorm TAKE 100 MILLIGRAMS ORAL BEDTIME Gabapentin 800MG Oral Tablet 07/19/2021 Unknown ORAL BEDTIME 800 MILLIGRAMS 985506 RxNorm TAKE 800 MILLIGRAMS ORAL BEDTIME Loratadine 10MG Oral Tablet 07/19/2021 Unknown ORAL NEEDED DAILY 10 MILLIGRAMS 470229 RxNorm TAKE 10 MILLIGRAMS ORAL NEEDED DAILY Metoprolol Succinate 100MG Oral Tablet, Extended Release 07/19/2021 Unknown ORAL BEDTIME 100 MILLIGRAMS 642835 RxNorm TAKE 100 MILLIGRAMS ORAL BEDTIME Omeprazole 40MG Oral Capsule, Delayed Release 07/19/2021 Unknown ORAL BEDTIME 40 MILLIGRAMS 520169 RxNorm TAKE 40 MILLIGRAMS ORAL BEDTIME Percocet 5MG-325MG Oral Tablet 07/19/2021 Unknown ORAL NEEDED THREE TIMES A DAY 1 unit(s) 7561042 RxNorm TAKE 1 EACH ORAL NEEDED THREE TIMES A DAY SF 5000 Plus 1.1% Dental Cream 07/19/2021 04/19/20 24 DENTAL NEEDED 1 unit(s) 974224 RxNorm 1 EACH DENTAL NEEDED Venlafaxine HCl 150MG Oral Capsule, Extended Release 07/19/2021 Unknown ORAL BEDTIME 150 MILLIGRAMS 318117 RxNorm TAKE 150 MILLIGRAMS ORAL BEDTIME Venlafaxine HCl 37.5MG Oral Tablet 07/19/2021 04/19/20 24 ORAL BEDTIME 37.5 MILLIGRAMS 387137 RxNorm TAKE 37.5 MILLIGRAMS ORAL BEDTIME Voltaren Gel 1% Topical application Gel/Jelly 07/19/2021 Unknown TOPICA L APPLIC ATION TWICE A DAY 1 unit(s) 571143 RxNorm 1 EACH TOPICAL APPLICATION TWICE A DAY Zolpidem Tartrate 12.5MG Oral Tablet, Extended Release 07/19/2021 Unknown ORAL NEEDED AT BEDTIME 12.5 MILLIGRAMS 600922 RxNorm TAKE 12.5 MILLIGRAMS ORAL NEEDED AT BEDTIME diphenhydrAMINE HCl 25MG Oral Capsule 07/19/2021 Unknown ORAL DAILY 25 MILLIGRAMS 0174934 RxNorm TAKE 25 MILLIGRAMS ORAL DAILY hydrOXYzine HCl 25MG Oral Tablet 07/19/2021 04/19/20 24 ORAL TWICE A DAY 75 MILLIGRAMS 005213 RxNorm TAKE 75 MILLIGRAMS ORAL TWICE A DAY hydroCHLOROthia zide 12.5MG Oral Tablet 07/19/2021 04/19/20 24 ORAL BEDTIME 12.5 MILLIGRAMS 861587 RxNorm TAKE 12.5 MILLIGRAMS ORAL BEDTIME Percocet 5MG-325MG Oral Tablet 09/18/2022 Unknown ORAL NEEDED EVERY 4 HOURS 9196543 RxNorm TAKE 1-2 TABLET ORAL NEEDED EVERY 4 HOURS Flomax 0.4MG Oral Capsule 09/18/2022 Unknown ORAL DAILY 1 CAPSULE 937600 RxNorm TAKE 1 CAPSULE ORAL DAILY UNTIL STONE PASSES Ibuprofen 200MG Oral Tablet 09/18/2022 04/19/20 24 ORAL EVERY 6 HOURS 3 TABLET 177485 RxNorm TAKE 3 TABLET ORAL EVERY 6 HOURS NEEDED FOR PAIN UNTIL STONE PASSES Ondansetron 4MG Oral Tablet, Disintegrating 04/18/2024 Unknown ORAL NEEDED EVERY 4 HOURS 1 TABLET 020380 RxNorm TAKE 1 TABLET ORAL NEEDED EVERY 4 HOURS Cefpodoxime Proxetil 200MG Oral Tablet 04/18/2024 Unknown ORAL TWICE A DAY 1 TABLET 001404 RxNorm TAKE 1 TABLET ORAL TWICE A [...] Date Status Code Code System HYPERTENSION active 75920024 SNOMED- CT PTSD active 56880157 SNOMED-CT SYNCOPE active 908220196 SNOMED-CT CHEST PAIN active 61511815 SNOMED-CT WEAKNESS active 18923259 SNOMED-CT URETEROLITHIASIS active 32820135 SNO MED-CT MIGRAINE 07/18/2021 resolved 01043120 SNOMED-CT CARPAL TUNNEL 07/18/2021 resolved 57701055 SNOME D-CT CHRONIC PAIN 07/18/2021 resolved 09896460 SNOMED -CT TONSILLITIS 07/18/2021 resolved 39489952 SNOMED- CT TMJ SYNDROME 07/18/2021 resolved 574187291 SNOMED -CT FIBROMYALGIA 07/18/2021 resolved 461279063 SNOMED -CT 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 12597667 SNOMED -CT 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 10592916 SNOMED-CT ANXIETY 07/18/2021 resolved 50672292 SNOMED-CT DEPRESSION 07/18/2021 resolved 46577276 SNOMED-C T ACID REFLUX 07/18/2021 resolved 645110425 SNOMED- CT CHRONIC PAIN 07/18/2021 resolved 28938384 SNOMED -CT HYPERTENSION 07/18/2021 resolved 22615085 SNOMED -CT Allergies and Adverse Reactions Allergy Substance Reaction Severity Start Date Concern Status Code Code System SULFA (sulfonamide) Vomiting (SNOMED-CT: 291197522) Active 25748613 SNOMED-CT PENICILLIN G Hives (SNOMED-CT: 771018503) Moderate Active 7980 RxNorm SHELLFISH Anaphylaxis (SNOMED-CT: 96747331) Active 487589342 SNOMED-CT FISH PROTEIN Anaphylaxis (SNOMED-CT: 09917115) Active 36928445 SNOMED-CT TOPAMAX Active 467439 RxNorm Plan of Treatment MM SCREEN BILAT [...] UNTIL STONE PASSES Ibuprofen 200MG Oral Tablet ([id number]-[id number]) 3 TABLET ORAL EVERY 6 HOURS ELA [...]
--- OUTSIDE RECORDS SUMMARY | 2024-04-22 21:58 | XMS_ITS ---
Author Organization Unknown Address [address] [place] [phone] Phone Care Team Providers Care Timber Repairer Name Role Phone LUDMILA LOZANO Registered Nurse Unavailable MAURO Maciel Attending Unavailable [facility] Unavailable RADHIKA Dhillon Primary Unavailable UNLISTED PROVIDER - REQUESTED Xhandoff Un available Results URINALYSIS WITH REFLEX CULT IF POSITIVE* - Collect Date/Time: 04/19/2024 13:10 [facility] ID: [id number] [address] [place], [place], [address] LOINC: 85718-8 Test Value Unit Reference Range Code Code System Flag COLLECTION MODE: CLEAN CATCH 18945-3 LOINC Color YELLOW yellow 5778-6 LOINC Appearance HAZY clear 5767-9 LOINC Glucose urine NEGATIVE negative mg/dl 80779-5 LOINC Bilirubin NEGATIVE negative 5770-3 LOINC Ketones NEGATIVE negative mg/dl 2514-8 LOINC Spec gravity 1.015 1.003 - 1.030 5811-5 LOINC pH urine 6.0 5.0 - 7.0 2756-5 LOINC Protein NEGATIVE negative mg/dl 27123-6 LOINC Urobilinogen 0.2 <or= 1 EU/dl 96764-4 LOINC Nitrite. NEGATIVE negative 5802-4 LOINC Blood MODERATE negative 5794-3 LOINC A Leukocytes. NEGATIVE negative MICROSCOPIC INDICATED WBCs. 0-5 0-5 / hpf 30413-7 LOINC RBCs 10-25 0-5 / hpf 58406-8 LOINC Epith cells 10-25 0-5 / hpf 97494-5 LOINC Cell types squamous Crystals none none Bacteria minimal none Mucus present none 8247-9 LOINC Casts none none /lpf 61487-7 LOINC Other 36665-0 LOINC HEPATIC FUNCTION PANEL - Col lect Date/Time: 04/19/2024 11:58 [facility] ID: [id number] [address] [place], [place], [id number] LOINC: 08186-4 Test Value Unit Reference Range Code Code System Flag ALBUMIN 3.3 gm/dL L=3.4 H=5.0 1751-7 LOINC L TOTAL PROTEIN 6.6 gm/dL L=6.0 H=8.0 2885-2 LOINC BILIRUBIN TOTAL 0.3 mg/dL L=0.0 H=1.3 1974-2 LOINC BILIRUBIN DIRECT 0.10 mg/dL L=0.00 H=0.50 1971-1 LOINC SGOT (AST) 22 U/L L=15 H=37 1920-8 LOINC SGPT (ALT) 26 U/L L=12 H=78 1742-6 LOINC ALK. PHOS. 90 U/L L=46 H=116 6768-6 LOINC BASIC METABOLIC PANEL (BMP) - Collect Date/Time: 04/19/2024 11:58 [facility] ID: [id number] [address] [place], [place], [address] LOINC: 24049-1 Test Value Unit Reference Range Code Code System Flag GLUCOSE 95 mg/dL L=70 H=116 2345-7 LOINC BUN 13 mg/dL L=6 H=25 3094-0 LOINC CREATININE 0.93 mg/dL L=0.51 H=0.95 2160-0 LOINC SODIUM SERUM 137 mmol/L L=136 H=145 2951-2 LOINC POTASSIUM SERUM 3.6 mmol/L L=3.4 H=5.2 2823-3 LOINC CHLORIDE SERUM 104 mmol/L L=96 H=110 2075-0 LOINC CARBON DIOXIDE (CO2) 26 mmol/L L=22 H=34 2028-9 LOINC ANION GAP 6.6 mmol/L 48023-6 LOINC CALCIUM SERUM 8.6 mg/dL L=8.2 H=10.2 49575-0 LOINC AGE 49 years eGFR (non-Afr.Amer.) 64 mL/min 66131-6 LOINC eGFR (Afr-Kenyan) 77 mL/min 82963-1 LOINC CBC W/ DIFFERENTIAL* - Colle ct Date/Time: 04/19/2024 11:58 [facility] ID: [id number] [address] [place], [place], [address] LOINC: 62637-8 Test Value Unit Reference Range Code Code System Flag WBC 9.41 th/cmm L=5.00 H=10.00 6690-2 LOINC NEUT % 65.2 % L=40.0 H=80.0 LYMPH % 25.3 % L=10.0 H=50.0 MONO % 7.4 % L=2.0 H=12.0 69297-9 LOINC EOS % 1.3 % L=0.0 H=8.0 BASO % 0.4 % L=0.0 H=3.0 IG % 0.4 % L=0.0 H=1.1 2514-8 LOINC NRBC % 0.0 % L=0.0 H=0.0 49888-6 LOINC NEUT abs count 6.1 th/cmm L=1.6 H=8.4 751-8 LOINC LYMPH abs count 2.4 th/cmm L=1.5 H=4.0 731-0 LOINC MONO abs count 0.7 th/cmm L=0.2 H=1.0 742-7 LOINC EOS abs count 0.1 th/cmm L=0.0 H=0.5 711-2 LOINC BASO abs count 0.0 th/cmm L=0.0 H=0.2 704-7 LOINC IG abs count 0.0 th/cmm L=0.0 H=0.1 45120-1 LOINC NRBC abs count 0.0 mil/cmm L=0.0 H=0.0 45285-3 LOINC RBC 4.20 mil/cmm L=3.90 H=5.40 789-8 LOINC HEMOGLOBIN 13.4 gm/dL L=12.0 H=16.0 718-7 LOINC HEMATOCRIT 40 % L=37 H=47 4544-3 LOINC MCV 96 fL L=82 H=92 787-2 LOINC H MCH 31.9 pg L=27.0 H=31.0 785-6 LOINC H MCHC 33.4 % L=32.0 H=36.0 786-4 LOINC RDW-SD 46.2 fL L=39.0 H=49.0 788-0 LOINC PLATELET COUNT 271 th/cmm L=150 H=450 777-3 LOINC XR ABDOMEN 1V - Completed: 1 12:00 LOINC: [facility] RADIOLOGY [place], [place] [address] RADIOLOGY CUTTING MACHINE TENDER DECORATIVE REPORT Patient Name: THONG HESTER MRN: Sex: : Age: [id number] F 1975 49 Account: Accession: Admit: StayType: [id number] 04/19/2024 E Ordered: Order ID: Submitted: Ordering Provider: 04/19/2024 11:26 [id number] FALGUNI BRUSH Completed: Technologist: Resulted: 04/19/2024 11:49 BISHOP 04/19/2024 12:04 EXAMINATION: XR ABDOMEN 1V CLINICAL HISTORY: Reason for Abdomen: Renal Colic Add'l Info: known left renal calculi (as entered by ordering provider in the order requisition) TECHNIQUE: Portable supine AP view of the abdomen. COMPARISON: CT abdomen and pelvis April 18, 2024 FINDINGS: Multiple punctate radiodensities project over the expected location of the renal shadows. These findings are favored represent the radiographic correlates of the renal calculi that are better seen by CT. Overlying fecal matter and bowel contents likely limited visualization for an additional renal calculi. 3 mm calcific density in the expected location of the distal left ureter is slightly the radiographic correlate of the distal ureteral calculus seen on CT from April 18, 2024. Multiple metallic sutures project over the right iliac bone. No dilated loops of bowel. IMPRESSION: 1. Multiple punctate bilateral renal calculi. 2. 3 mm left distal ureteral calculus is again seen. Thank you for letting us participate in the care of this patient. If you are a health care provider and have any questions regarding this report, please contact the number below. For patients who have questions please contact the health grounds caretaker that requested your imaging first. Social History Type Status Start Date End Date Code Code Syst em Smoking History Never smoker (Never Smoked) 014244487 SNOMED CT Sex Female Vital Signs Vital Sign Value Unit [place] Unit Date/Time Recent/Initial? Code Code System Body Mass Index 35.15 kg/m2 04/19/2024 10:59 Initial 39099 -5 LOINC Systolic Blood Pressure 131 mm[Hg] 04/19/2024 14:10 Most Recent 8480- 6 LOINC Diastolic Blood Pressure 63 mm[Hg] 04/19/2024 14:10 Most Recent 8462- 4 LOINC Systolic Blood Pressure 163 mm[Hg] 04/19/2024 10:59 Initial 8480- 6 LOINC Diastolic Blood Pressure 94 mm[Hg] 04/19/2024 10:59 Initial 8462- 4 LOINC Body Surface Area 1.86 m2 04/19/2024 10:59 Initial 3140- 1 LOINC Height 152.400 0 cm 60.00 in 04/19/2024 10:59 Initial 8302- 2 LOINC O2 Saturation 96 % 2023 14:10 Most Recent 67134 -5 LOINC O2 Saturation 100 % 2023 10:59 Initial 07279 -5 LOINC Pulse 81.0 /min 04/19/2024 14:10 Most Recent 8867- 4 LOINC Pulse 96.0 /min 04/19/2024 10:59 Initial 8867- 4 [facility] Respiration 16 /min 04/19/20 14:10 Most Recent 9279- 1 [facility] Respiration 15 /min 04/19/20 10:59 Initial 9279- 1 [facility] Temperature 36.8 Thi 98.2 F 04/19/20 10:59 Initial 8310- 5 [facility] Weight 81.65 kg 180.00 lbs 04/19/2024 10:59 Initial 42366 -7 [facility] Medications Medication Start Date End Date Route Frequency Dose Code Code System Medication Instructions Home Meds Amitriptyline HCl 100MG Oral Tablet 07/19/2021 Unknown ORAL BEDTIME 100 MILLIGRAMS 411216 RxNorm TAKE 100 MILLIGRAMS ORAL BEDTIME Cyclobenzaprine 10MG Oral Tablet 07/19/2021 Unknown ORAL NEEDED THREE TIMES A DAY 10 MILLIGRAMS 647703 RxNorm TAKE 10 MILLIGRAMS ORAL NEEDED THREE TIMES A DAY Doxycycline 100MG Oral Capsule 07/19/2021 Unknown ORAL BEDTIME 100 MILLIGRAMS 8805489 RxNorm TAKE 100 MILLIGRAMS ORAL BEDTIME Gabapentin 800MG Oral Tablet 07/19/2021 Unknown ORAL BEDTIME 800 MILLIGRAMS 109047 RxNorm TAKE 800 MILLIGRAMS ORAL BEDTIME Loratadine 10MG Oral Tablet 07/19/2021 Unknown ORAL NEEDED DAILY 10 MILLIGRAMS 327491 RxNorm TAKE 10 MILLIGRAMS ORAL NEEDED DAILY Metoprolol Succinate 100MG Oral Tablet, Extended Release 07/19/2021 Unknown ORAL BEDTIME 100 MILLIGRAMS 356165 RxNorm TAKE 100 MILLIGRAMS ORAL BEDTIME Omeprazole 40MG Oral Capsule, Delayed Release 07/19/2021 Unknown ORAL BEDTIME 40 MILLIGRAMS 996528 RxNorm TAKE 40 MILLIGRAMS ORAL BEDTIME Percocet 5MG-325MG Oral Tablet 07/19/2021 Unknown ORAL NEEDED THREE TIMES A DAY 1 unit(s) 2794084 RxNorm TAKE 1 EACH ORAL NEEDED THREE TIMES A DAY SF 5000 Plus 1.1% Dental Cream 07/19/2021 04/19/20 DENTAL NEEDED 1 unit(s) 082397 RxNorm 1 EACH DENTAL NEEDED Venlafaxine HCl 150MG Oral Capsule, Extended Release 07/19/2021 Unknown ORAL BEDTIME 150 MILLIGRAMS 637471 RxNorm TAKE 150 MILLIGRAMS ORAL BEDTIME Venlafaxine HCl 37.5MG Oral Tablet 07/19/2021 04/19/20 24 ORAL BEDTIME 37.5 MILLIGRAMS 420262 RxNorm TAKE 37.5 MILLIGRAMS ORAL BEDTIME Voltaren Gel 1% Topical application Gel/Jelly 07/19/2021 Unknown TOPICA L APPLIC ATION TWICE A DAY 1 unit(s) 772946 RxNorm 1 EACH TOPICAL APPLICATION TWICE A DAY Zolpidem Tartrate 12.5MG Oral Tablet, Extended Release 07/19/2021 Unknown ORAL NEEDED AT BEDTIME 12.5 MILLIGRAMS 313651 RxNorm TAKE 12.5 MILLIGRAMS ORAL NEEDED AT BEDTIME diphenhydrAMINE HCl 25MG Oral Capsule 07/19/2021 Unknown ORAL DAILY 25 MILLIGRAMS 3447421 RxNorm TAKE 25 MILLIGRAMS ORAL DAILY hydrOXYzine HCl 25MG Oral Tablet 07/19/2021 04/19/20 24 ORAL TWICE A DAY 75 MILLIGRAMS 627816 RxNorm TAKE 75 MILLIGRAMS ORAL TWICE A DAY hydroCHLOROthia zide 12.5MG Oral Tablet 07/19/2021 04/19/20 24 ORAL BEDTIME 12.5 MILLIGRAMS 802492 RxNorm TAKE 12.5 MILLIGRAMS ORAL BEDTIME Percocet 5MG-325MG Oral Tablet 09/18/2022 Unknown ORAL NEEDED EVERY 4 HOURS 1369320 RxNorm TAKE 1-2 TABLET ORAL NEEDED EVERY 4 HOURS Flomax 0.4MG Oral Capsule 09/18/2022 Unknown ORAL DAILY 1 CAPSULE 512924 RxNorm TAKE 1 CAPSULE ORAL DAILY UNTIL STONE PASSES Ibuprofen 200MG Oral Tablet 09/18/2022 04/19/20 24 ORAL EVERY 6 HOURS 3 TABLET 238827 RxNorm TAKE 3 TABLET ORAL EVERY 6 HOURS NEEDED FOR PAIN UNTIL STONE PASSES Ondansetron 4MG Oral Tablet, Disintegrating 04/18/2024 Unknown ORAL NEEDED EVERY 4 HOURS 1 TABLET 124739 RxNorm TAKE 1 TABLET ORAL NEEDED EVERY 4 HOURS Cefpodoxime Proxetil 200MG Oral Tablet 04/18/2024 Unknown ORAL TWICE A DAY 1 TABLET 050719 RxNorm TAKE 1 TABLET ORAL TWICE A [...] Date Status Code Code System HYPERTENSION active 84446834 SNOMED- CT PTSD active 54351653 SNOMED-CT SYNCOPE active 418502970 SNOMED-CT CHEST PAIN active 49270117 SNOMED-CT WEAKNESS active 84800931 SNOMED-CT URETEROLITHIASIS active 83093996 SNO MED-CT MIGRAINE 07/18/2021 resolved 32529968 SNOMED-CT CARPAL TUNNEL 07/18/2021 resolved 28445119 SNOME D-CT CHRONIC PAIN 07/18/2021 resolved 61654001 SNOMED -CT TONSILLITIS 07/18/2021 resolved 54341460 SNOMED- CT TMJ SYNDROME 07/18/2021 resolved 426506649 SNOMED -CT FIBROMYALGIA 07/18/2021 resolved 321514261 SNOMED -CT 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 25205891 SNOMED -CT 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 54766601 SNOMED-CT ANXIETY 07/18/2021 resolved 37362405 SNOMED-CT DEPRESSION 07/18/2021 resolved 77027125 SNOMED-C T ACID REFLUX 07/18/2021 resolved 456297438 SNOMED- CT CHRONIC PAIN 07/18/2021 resolved 89091522 SNOMED -CT HYPERTENSION 07/18/2021 resolved 57569351 SNOMED -CT Allergies and Adverse Reactions Allergy Substance Reaction Severity Start Date Concern Status Code Code System SULFA (sulfonamide) Vomiting (SNOMED-CT: 478669828) Active 73729757 SNOMED-CT PENICILLIN G Hives (SNOMED-CT: 402098617) Moderate Active 7980 RxNorm SHELLFISH Anaphylaxis (SNOMED-CT: 04852189) Active 981711302 SNOMED-CT FISH PROTEIN Anaphylaxis (SNOMED-CT: 95199829) Active 23987297 SNOMED-CT TOPAMAX Active 732663 RxNorm Plan of Treatment MM SCREEN BILAT 07/02/2022 PRE-OP COVID-19 TESTING 08/13/2021 MM SCREEN BILAT 05/28/2021 Personal Care Team Section Performer Name Performer Role Active Date Inactive Da te
--- OUTSIDE RECORDS SUMMARY | 2024-04-22 21:59 | XMS_ITS | Encounter Summary ---
Author Organization [facility] Address [address] [place] [address] Care Team Providers Care Mail Truck Driver Name Role Phone Diya Gifford MD Primary Care Provide r Dariana Juarez MD Unavailable [phone] Reason for Visit * Reason Onset Date Comments Appointment Related 10/07/2023 Encounter Details Date Type Department Care Team (Late st Contact Info) Description 10/07/2023 Telephone [facility] Interventional Pain [address] [facility] [place] [address] Hailee Caceres PA-C [address] [facility] [address] [place] [address] Appointment Related Social History Tobacco [...] Care Team (Late st Contact Info) Description 04/26/2024 9:15 EDT Office Visit [facility] Interventional Pain [address] [place] [address] Percy Molina MD [address] [facility] [address] [place] [address] 01/25/2026 12:00 EDT Office Visit [facility] Hematology & Oncology - [facility] [address], [place] [phone] Jorge Lim MD [address] [facility] [place] [phone] documented as of this encounter Visit Diagnoses Not on filedocumented in this encounter Care Teams Mail Truck Driver Relationship Specialty Start Date End Date Diya Gifford MD [address] [facility] [address] [place] [address] PCP - General 07/26/19 Dariana Juarez MD [address] [place] [address]-A [address] [place] [phone] Consulting Clinician Cardiovascular Disease 02/06/22 documented as of this encounter
--- OUTSIDE RECORDS SUMMARY | 2024-04-22 21:59 | XMS_ITS | Encounter Summary ---
Author Organization [facility] Address [address] [place] [address] Care Team Providers Care Assistant Reading Teacher Name Role Phone Diya Gifford MD Primary Care Provide r Dariana Juarez MD Unavailable [phone] Reason for Visit * Reason Comments Back Pain Encounter Details Date Type Department Care Team (Latest Contact Info) Description 01/15/2024 11:15 EDT Office Visit [facility] Interventional Pain [address] [facility] [place] [address] Hailee Caceres PA-C [address] [facility] [address] [place] [address] Cervical radiculopathy (Primary Dx) Social [...] Info) Description 04/26/2024 9:15 EDT Office Visit [facility] Interventional Pain [address] [facility] [place], [place] [id number] Percy Molina MD [address] [facility] [address] [place] [address] 01/25/2026 12:00 EDT Office Visit [facility] Hematology & Oncology - [facility] [address], [place] [address] Jorge Lim MD [address] [facility], [facility] [place], [address] [place] [address] documented as of this encounter Visit Diagnoses Diagnosis Cervical radiculopathy- Primary Brachial neuritis or radiculitis nos documented in this encounter Care Teams Assistant Reading Teacher Relationship Specialty Start Date End Date Diya Gifford MD [address] [place] [address] [address] [place] [address] PCP - General 07/26/19 Dariana Juarez MD [address] [place] [address] [phone] Consulting Clinician Cardiovascular Disease 02/06/22 documented as of this encounter
--- OUTSIDE RECORDS SUMMARY | 2024-04-22 21:59 | XMS_ITS | Encounter Summary ---
Author Organization [facility] Address [address] [place] [address] Care Team Providers Care Azure Developer Name Role Phone Diya Gifford MD Primary Care Provide r Dariana Juarez MD Unavailable [phone] Encounter Details Date Type Department Care Team (Late st Contact Info) Description 01/28/2023 Orders Only [facility] Cardiology Clinic [address] [place] [address] RN Encounter for loop [...] Info) Description 04/26/2024 9:15 EDT Office Visit [facility] Interventional Pain [address] [place] [address] Percy Molina MD [address] [place] [address] 01/25/2026 12:00 EDT Office Visit [facility] Hematology & Oncology - [facility] [address] [place], [place] [phone] Jorge Lim MD [address] [facility], [facility], [address] [place] [address] documented as of this encounter [...] device documented in this encounter Care Teams Azure Developer Relationship Specialty Start Date End Date Diya Gifford MD [address] [place] [address] [address] [place] [address] PCP - General 07/26/19 Dariana Juarez MD [address] [place] [address] [phone] Consulting Clinician Cardiovascular Disease 02/06/22 documented as of this encounter
--- OUTSIDE RECORDS SUMMARY | 2024-04-22 21:59 | XMS_ITS | Encounter Summary ---
Author Organization [facility] Address [address] [place] [address] Care Team Providers Care Lead Business Systems Analyst Name Role Phone Diya Gifford MD Primary Care Provide r Dariana Juarez MD Unavailable [phone] Encounter Details Date Type Department Care Team (Late st Contact Info) Description 10/30/2022 Orders Only [facility] [address] [place] [address] Gwendolyn Martinez MA Encounter for loop [...] Info) Description 04/26/2024 9:15 EDT Office Visit [facility] Interventional Pain [address] [place], [place] [phone] Percy Molina MD [address] [facility] [address] [place] [address] 01/25/2026 12:00 EDT Office Visit [facility] Hematology & Oncology - [facility] [address] [place], [place] [phone] Jorge Lim MD 111 [facility], [facility], Level [address] [place] [phone] documented as of this encounter Procedures Procedure [...] device documented in this encounter Care Teams Lead Business Systems Analyst Relationship Specialty Start Date End Date Diya Gifford MD [address] [place] [address] [address] [place] [address] PCP - General 07/26/19 Dariana Juarez MD [address] [place] [phone] Consulting Clinician Cardiovascular Disease 02/06/22 documented as of this encounter
--- OUTSIDE RECORDS SUMMARY | 2024-04-22 21:59 | XMS_ITS | Encounter Summary ---
Author Organization [facility] Address [address] [place] [address] Care Team Providers Care Team Automobile Assembler Name Role Phone Diya Gifford MD Primary Care Provide r Dariana Juarez MD Unavailable [phone] Encounter Details Date Type Department Care [...] Info) Description 04/26/2024 9:15 EDT Office Visit [facility] Interventional Pain [address] [place], [place] [phone] Percy Molina MD 62 [facility] [address] [place] [address] 01/25/2026 12:00 EDT Office Visit [email or web address] Hematology & Oncology - [facility] [address] [place], [place] [phone] Jorge Lim MD 111 [facility], [address] [place] [phone] documented as of this encounter Visit Diagnoses Not on filedocumented in this encounter Care Teams Team Automobile Assembler Relationship Specialty Start Date End Date Diya Gifford MD [address] [place] [phone] PCP - General 07/26/19 Dariana Juarez MD [address] [place] [address] [place] [address] Consulting Clinician Cardiovascular Disease 02/06/22 documented as of this encounter
--- OUTSIDE RECORDS SUMMARY | 2024-04-22 21:59 | XMS_ITS | Encounter Summary ---
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 Bleeding disorder ([facility]) Social History Tobacco Use Types Packs/Day Years [...] Info) Description 04/26/2024 9:15 EDT Office Visit [facility] Interventional Pain [address] [place] [address] Percy Molina MD [address] [place] [address] 01/25/2026 12:00 EDT Office Visit [facility] Hematology & Oncology - [facility] [address] [place] [address] Jorge Lim MD 111 [facility], Level [address] [place] [phone] documented as of this encounter Procedures Procedure Name Priority Date/Time Associated Diagnosis Comments MISCELLANEOUS TEST, MOSER Routine 08/10/2023 9:14 EST Bleeding disorder (HCC-CMS) MISCELLANEOUS TEST, MOSER Routine 08/10/2023 9:14 EST Bleeding disorder ([facility]) MISCELLANEOUS TEST, MOSER Routine 08/10/2023 9:14 EST Bleeding disorder ([facility]) documented in this encounter Results * MISCELLANEOUS TEST, MOSER (08/10/2023 9:14 EST) Pathologist [facility] Miscellaneous Test, [place] SEE NOTE 08/20/2023 15:23 EST [facility] Comment: Test ? Result ? [...] developed and its performance characteristics ?determined by [facility] in a manner consistent with CLIA ?requirements. This test has not been cleared or approved by ?the U.S. Food and Drug Administration. ?Test Performed by: ?[facility] ?[address] [place] [address] ?Store Sales Manager: Liban Aly M.D. Ph.D.; IA# [id number] Blood VENOUS BLOOD / Unknown Venipuncture / Unknown 08/10/2023 9:14 EST 08/10/2023 9:24 EST Jorge Lim MD CHEMISTRY & BLOOD GAS ORDERABLES Performing Organization Address [facility]/State/ZIP Co de Phone Number [facility] [address] [place] [address] * MISCELLANEOUS TEST, [place] (08/10/2023 9:14 EST) Miscellaneous Test, [place] SEE NOTE 08/26/2023 12:22 EST [facility] Comment: Test ? Result ?? Flag ??Unit ?RefValue Fibrinolysis Profile II ?SEE NOTE ??Not ReportedNot Reported ??Not Reported ?Testing is complete. Final report has been sent to the ?referring laboratory. ?Note: There may be a delay of up to 2 hours before ?report is available to view. ?Test Performed by: ?[facility] ?[address] ?[address] ?[place] [address] Blood VENOUS BLOOD / Unknown Venipuncture / Unknown 08/10/2023 9:14 EST 08/10/2023 9:20 EST Narrative [facility] - 08/26/2023 12:22 EST See scanned/supplementary report. Jorge Lim MD CHEMISTRY & BLOOD GAS ORDERABLES [facility] [address] [place] [address] * MISCELLANEOUS TEST, [place]Y (08/10/2023 9:14 EST) Miscellaneous Test, [place] SEE NOTE 08/12/2023 11:18 EST [facility] Comment: Test ?Result ?Flag ??Unit ??RefValue Platelet [...] developed and its performance characteristics ?determined by [facility] in a manner consistent with CLIA ?requirements. This test has not been cleared or approved by ?the U.S. Food and Drug Administration. ?Test Performed by: ?[facility] ?[address] [place] [address] ?Store Sales Manager: Liban Aly M.D. Ph.D.; CLIA# [id number] Blood VENOUS BLOOD / Unknown Venipuncture / Unknown 08/10/2023 9:14 EST 08/10/2023 9:24 EST Jorge Lim MD CHEMISTRY & BLOOD GAS ORDERABLES [facility] [address] [place] [address] documented in this encounter Visit Diagnoses Diagnosis Bleeding disorder (HCC-CMS) Unspecified hemorrhagic conditions documented in this encounter Care Teams Radio Interference Investigator Relationship Specialty Start Date End Date Diya Gifford MD [address] [place] [address] PCP - General 07/26/19 Dariana Juarez MD [address] [place] [address] [address] [place] [phone] Consulting Clinician Cardiovascular Disease 02/06/22 documented as of this encounter
--- OUTSIDE RECORDS SUMMARY | 2024-04-22 21:59 | XMS_ITS | Encounter Summary ---
Author Organization [facility] Address [address] [place] [address] Care Team Providers Care Critical Care Unit Nurse Name Role Phone Diya Gifford MD Primary Care Provide r Dariana Juarez MD Unavailable [phone] Encounter Details Date Type Department Care [...] Info) Description 04/26/2024 9:15 EDT Office Visit [facility] Interventional Pain [address] [place], [place] [phone] Percy Molina MD 62 [facility] [address] [place] [address] 01/25/2026 12:00 EDT Office Visit [facility] Hematology & Oncology - [facility] [address] [place], [place] [phone] Jorge Lim MD 111 [facility], [address] [place] [phone] documented as of this encounter Visit Diagnoses Not on filedocumented in this encounter Care Teams Critical Care Unit Nurse Relationship Specialty Start Date End Date Diya Gifford MD [address] [place] [phone] PCP - General 07/26/19 Dariana Juarez MD [address] [place] [address]A [address] [place] [address] Consulting Clinician Cardiovascular Disease 02/06/22 documented as of this encounter
--- OUTSIDE RECORDS SUMMARY | 2024-04-22 21:59 | XMS_ITS | Encounter Summary ---
Author Organization [facility] Address [address] [place] [address] Care Team Providers Care Rate Manager Name Role Phone Diya Gifford MD Primary Care Provide r Dariana Juarez MD Unavailable [phone] Encounter Details Date Type Department Care Team (Late st Contact Info) Description 03/05/2023 9:45 EDT Phlebotomy Only [facility] ED [facility] 2 Phlebotomy [address] [place], [place] [id number] [employer] Operator, [facility] Phlebotomy [facility]eding disorder ([facility]) Social History Tobacco Use Types Packs/Day [...] Info) Description 04/26/2024 9:15 EDT Office Visit [facility] Interventional Pain [address] [place], [place] [id number] Percy Molina MD [address] [place] [address] 01/25/2026 12:00 EDT Office Visit [facility] Hematology & Oncology - [facility] [address] [place], [place] [phone] Jorge Lim MD [address] [facility], Level [address] [place] [phone] documented as of this encounter Procedures Procedure Name Priority Date/Time Associated Diagnosis Comments VWF MULTIMERS, PLASMA Routine 03/05/2023 10:08 EDT Bleeding disorder ([facility]) COAG SPIN AND FREEZE Routine 03/05/2023 10:08 EDT Bleeding disorder ([facility]) VON WILLEBRAND FACTOR ACTIVITY Routine 03/05/2023 10:08 EDT Bleeding disorder ([facility]) COAG SPIN AND FREEZE Routine 03/05/2023 10:08 EDT Bleeding disorder ([facility]) FACTOR 10 ASSAY Routine 03/05/2023 10:08 EDT Bleeding disorder ([facility]) FACTOR 13 ANTIGEN Routine 03/05/2023 10: 08 EDT Bleeding disorder ([facility]) VON WILLEBRAND FACTOR MULTIMER PANEL Routine 03/05/2023 10:08 EDT Bleeding disorder ([facility]) PTT Routine 03/05/2023 10:08 EDT Bleeding disorder ([facility]) THROMBIN TIME Routine 03/05/2023 10:08 EDT Bleeding [...] 10:08 EDT) Hold Hold 03/05/2023 10:22 EDT [facility] Blood VENOUS BLOOD / Unknown Venipuncture / Unknown 03/05/2023 10:08 EDT 03/05/2023 10:13 EDT Jorge Lim MD HEMATOLOGY & PF4 ORDERABLES Performing Organization Address City/[facility]/ZIP Co de Phone Number [facility] [address] [place] [address] * (ABNORMAL) FACTOR 8 ASSAY (03/05/2023 10:08 EDT) Factor 8 Assay 203(H) 50 - 150 % 03/05/2023 12:30 EDT [facility] Blood VENOUS BLOOD / Unknown Venipuncture / Unknown 03/05/2023 10:08 EDT 03/05/2023 10:13 EDT Jorge Lim MD HEMATOLOGY & PF4 ORDERABLES Performing Organization Address [facility] Co de Phone Number [facility] [address] [place] [address] * (ABNORMAL) VON WILLEBRAND FACTOR ACTIVITY (03/05/2023 10:08 EDT) VWF Activity 184(H) 49 - 163 % 03/05/2023 12:30 EDT [facility] Comment:Rheumatoid factor le vels greater [...] HEMATOLOGY & PF4 ORDERABLES Performing Organization Address [facility]/ZIP Co de Phone Number [facility] [address] [place] [address] * (ABNORMAL) VWF ANTIGEN (03/05/2023 10:08 EDT) VWF Antigen 228(H) 50 - 185 % 03/05/2023 12:30 EDT [facility] Comment:The presence of Rheu matoid [...] HEMATOLOGY & PF4 ORDERABLES Performing Organization Address City/[facility]/ZIP Co de Phone Number [facility] [address] [place] [address] * VWF MULTIMERS, PLASMA (03/05/2023 10:08 EDT) von Willibrand Factor Multimer, P See interpretation 03/13/2023 12:06 EDT [facility] VWF Multimer Interpretation SEE NOTE 03/13/2023 12:06 EDT [facility] Comment: The distribution of plasma von Willebrand factor (VWF) multimers is normal. ADDITIONAL INFORMATION This test was developed and its performance characteristics determined by [facility] in a manner consistent with CLIA requirements. This test has not been cleared or approved by the U.S. Food and Drug Administration. Test Performed by: [facility] - [address] [address] [employer]: Lbian Aly M.D. Ph.D.; CLIA# [id number] Blood VENOUS BLOOD / Unknown Venipuncture / Unknown 03/05/2023 10:08 EDT 03/05/2023 10:13 EDT Jorge Lim MD HEMATOLOGY & PF4 ORDERABLES Performing Organization Address [facility]/ZIP Co de Phone Number [address] [address] * PLATELET FUNCTION ASSAY/ANALYSIS (03/05/2023 10:08 EDT) COL/EPI Cartridge 136 94 - 193 secs 03/05/2023 10:55 EDT [facility] Blood VENOUS BLOOD / Unknown Venipuncture / Unknown 03/05/2023 10:08 EDT 03/05/2023 10:13 EDT Narrative [facility] - 03/05/2023 10:55 EDT Platelet [...] HEMATOLOGY & PF4 ORDERABLES Performing Organization Address [facility] de Phone Number [facility] [address] [place] [address] * (ABNORMAL) FACTOR 11 ASSAY (03/05/2023 10:08 EDT) [facility] Signature Factor 11 Assay 163(H) 65 - 150 % 03/05/2023 12:30 EDT [facility] Blood VENOUS BLOOD / Unknown Venipuncture / Unknown 03/05/2023 10:08 EDT 03/05/2023 10:13 EDT Jorge Lim MD HEMATOLOGY & PF4 ORDERABLES Performing Organization Address City/[facility]/ZIP Co de Phone Number [facility] [address] [place] [address] * (ABNORMAL) FACTOR 10 ASSAY (03/05/2023 10:08 EDT) Factor 10 Assay 183(H) 77 - 131 % 03/05/2023 12:30 EDT [facility] Blood VENOUS BLOOD / Unknown Venipuncture / Unknown 03/05/2023 10:08 EDT 03/05/2023 10:13 EDT Jorge Lim MD HEMATOLOGY & PF4 ORDERABLES [facility] [address] [place] [address] * (ABNORMAL) FACTOR 9 ASSAY (03/05/2023 10:08 EDT) Factor 9 Assay 205(H) 65 - 150 % 03/05/2023 12:30 EDT [facility] Blood VENOUS BLOOD / Unknown Venipuncture / Unknown 03/05/2023 10:08 EDT 03/05/2023 10:13 EDT Jorge Lim MD HEMATOLOGY & PF4 ORDERABLES Performing Organization Address City/[facility] Co de Phone Number [facility] [address] [place] [address] * (ABNORMAL) FACTOR 7 ASSAY (03/05/2023 10:08 EDT) Factor 7 Assay 204(H) 50 - 129 % 03/05/2023 12:30 EDT [facility] Blood VENOUS BLOOD / Unknown Venipuncture / Unknown 03/05/2023 10:08 EDT 03/05/2023 10:13 EDT Jorge Lim MD HEMATOLOGY & PF4 ORDERABLES Performing Organization Address City/[facility] Co de Phone Number [facility] [address] [place] [address] * (ABNORMAL) FACTOR 5 ASSAY (03/05/2023 10:08 EDT) Factor 5 Assay 142(H) 62 - 139 % 03/05/2023 12:30 EDT [facility] Blood VENOUS BLOOD / Unknown Venipuncture / Unknown 03/05/2023 10:08 EDT 03/05/2023 10:13 EDT Jorge Lim MD HEMATOLOGY & PF4 ORDERABLES Performing Organization Address City/[facility]/ZIP Co de Phone Number [facility] [address] [place] [address] * (ABNORMAL) FACTOR 2 ASSAY (03/05/2023 10:08 EDT) Pathologist [facility] Factor 2 Assay 151(H) 79 - 131 % 03/05/2023 12:30 EDT [facility] Blood VENOUS BLOOD / Unknown Venipuncture / Unknown 03/05/2023 10:08 EDT 03/05/2023 10:13 EDT Jorge Lim MD HEMATOLOGY & PF4 ORDERABLES Performing Organization Address City/[facility]/ZIP Co de Phone Number [facility] [address] [place] [address] * FACTOR 13 ANTIGEN (03/05/2023 10:08 EDT) [facility] Factor 13 Antigen 129.5 57.1 - 168.5 % 03/05/2023 12:30 EDT [facility] Blood VENOUS BLOOD / Unknown Venipuncture / Unknown 03/05/2023 10:08 EDT 03/05/2023 10:13 EDT Jorge Lim MD HEMATOLOGY & PF4 ORDERABLES Performing Organization Address City/[facility] Co de Phone Number [facility] [address] [place] [address] * FIBRINOGEN (03/05/2023 10:08 EDT) [facility] Fibrinogen 369 171 - 384 mg/dL 03/05/2023 10:39 EDT [facility] Blood VENOUS BLOOD / Unknown Venipuncture / Unknown 03/05/2023 10:08 EDT 03/05/2023 10:13 EDT Jorge Lim MD HEMATOLOGY & PF4 ORDERABLES Performing Organization Address City/[facility] Co de Phone Number [facility] [address] [place] [address] * (ABNORMAL) COMPLETE BLOOD COUNT (03/05/2023 10:08 EDT) [facility] WBC 7.81 4.00 - 12.40 K/cmm 03/05/2023 10:30 EDT [facility] RBC 4.96 3.86 - 5.04 M/cmm 03/05/2023 10:30 EDT [facility] Hemoglobin 15.1 11.6 - 15.2 g/dL 03/05/2023 10:30 EDT [facility] HCT 45.1(H) 34.9 - 44.4 % 03/05/2023 10:30 EDT [facility] MCV 91 81 - 98 fL 03/05/2023 10:30 EDT [facility] MCH 30.4 26.7 - 33.3 pg 03/05/2023 10:30 T [facility] MCHC 33.5 32.1 - 35.9 g/dL 03/05/2023 10:30 EDT [facility] RDW-CV 13.1 <14.7 % 03/05/2023 10:30 EDT [facility] RDW-SD 43.1 <50.4 fl 03/05/2023 10:30 EDT [facility] PLT 319 141 - 377 K/cmm 03/05/2023 10:30 [facility] MPV 10.2 9.5 - 12.7 fL 03/05/2023 10:30 T [facility] Blood VENOUS BLOOD / Unknown Venipuncture / Unknown 03/05/2023 10:08 EDT 03/05/2023 10:21 EDT Jorge Lim MD HEMATOLOGY & PF4 ORDERABLES [facility] [address] [place] [address] * THROMBIN TIME (03/05/2023 10:08 EDT) Thrombin Time 12.4 10.3 - 16.9 secs 03/05/2023 12:30 T [facility] Blood VENOUS BLOOD / Unknown Venipuncture / Unknown 03/05/2023 10:08 EDT 03/05/2023 10:13 EDT Narrative [facility] - 03/05/2023 12:30 EDT Results will be prolonged in the presence of Heparin, direct thrombin inhibitors such as Dabigatran (Pradaxa), Hirudin (Refludan) and Argatroban (Novastan). Jorge Lim MD HEMATOLOGY & PF4 ORDERABLES Performing Organization Address City/[facility]/ZIP Co de Phone Number [facility] [address] [place] [address] * PTT (03/05/2023 10:08 EDT) PTT 26 26 - 37 secs 03/05/2023 10:41 EDT [facility] Blood VENOUS BLOOD / Unknown Venipuncture / Unknown 03/05/2023 10:08 EDT 03/05/2023 10:13 EDT Jorge Lim MD HEMATOLOGY & PF4 ORDERABLES Performing Organization Address [facility] Co de Phone Number [facility] [address] [place] [address] * PROTIME (03/05/2023 10:08 EDT) I.N.R. 0.9 0.9 - 1.1 Ratio 03/05/2023 10:39 EDT [facility] Pro Time 10.5 9.7 - 12.8 secs 03/05/2023 10:39 EDT [facility] Blood VENOUS BLOOD / Unknown Venipuncture / Unknown 03/05/2023 10:08 EDT 03/05/2023 10:13 EDT Narrative [facility] - 03/05/2023 10:39 EDT Moderate Intensity Coumadin INR = 2.0-3.0 Adjustments in anticoagulant therapy dose should be based on the INR and NOT on the Protime. Jorge Lim MD HEMATOLOGY & PF4 ORDERABLES Performing Organization Address [facility] Co de Phone Number [facility] [address] [place] [address] documented in this encounter Visit Diagnoses Diagnosis Bleeding disorder ([facility]) Unspecified hemorrhagic conditions documented in this encounter Care Teams Rate Manager Relationship Specialty Start Date End Date Diya Gifford MD [address] [place] [address] [address] [place] [address] PCP - General 07/26/19 Dariana Juarez MD [address] [place] [address] [phone] Consulting Clinician Cardiovascular Disease 02/06/22 documented as of this encounter
--- OUTSIDE RECORDS SUMMARY | 2024-04-22 21:59 | XMS_ITS | Encounter Summary ---
Author Organization [facility] Address [address] [place] [address] Care Team Providers Care Field Crop Farmer Name Role Phone Diya Gifford MD Primary Care Provide r Dariana Juarez MD Unavailable [phone] Reason for Visit * Reason Comments New Patient Visit * Referral (Routine) - Receiving Office to Obtain Authorization Specialty Diagnoses / Procedures [facility] Referred To Contact Hematology Diagnoses Encounter for screening for diseases of the blood and blood-forming organs and certain disorders involving the immune mechanism Diya Gifford MD [address] [place] [address] [facility] Ep2 Hem/Onc [address] [place] [address] Referral ID Status Reason Start Date Expiration Date Visits Requested Visits Authorized [id number] Receiving Office to Obtain Authorization 1 1 Encounter Details Date Type Department Care Team (Late st Contact Info) Description 03/05/2023 8:30 EDT Office Visit [facility] Hematology & Oncology - [address] [phone] Jorge Lim MD [address] [facility], [facility], [address] [place] [address] Bleeding disorder ([facility]) (Primary Dx) Social History Tobacco Use Types [...] DATA AND LABORATORY REVIEW Labs available from [facility] 9.6, INR 0.9; creatinine normal ASSESSMENT [...] aswell. We discussed the role of the [facility] hemophilia treatment center in her care. We [...] Info) Description 04/26/2024 9:15 EDT Office Visit [facility] Interventional Pain [address] [place] [address] Percy Molina MD [address] [facility] [address] [place] [address] 01/25/2026 12:00 EDT Office Visit [facility] Hematology & Oncology - [facility] [address] [place], [place] [phone] Jorge Lim MD [address] [facility], [facility], [address] [place] [address] documented as of this encounter Results * PLATELET FUNCTION ASSAY/ANALYSIS (03/05/2023 10:08 EDT) [facility] COL/EPI Cartridge 136 94 - 193 secs 03/05/2023 10:55 EDT [facility] Blood VENOUS BLOOD / Unknown Venipuncture / Unknown 03/05/2023 10:08 EDT 03/05/2023 10:13 EDT Narrative [facility] - 03/05/2023 10:55 EDT Platelet [...] PF4 ORDERABLES [facility] [address] [place] [address] * (ABNORMAL) FACTOR 11 ASSAY (03/05/2023 10:08 EDT) [facility] Factor 11 Assay 163(H) 65 - 150 % 03/05/2023 12:30 EDT [facility] Blood VENOUS BLOOD / Unknown Venipuncture / Unknown 03/05/2023 10:08 EDT 03/05/2023 10:13 EDT Jorge Lim MD HEMATOLOGY & PF4 ORDERABLES Performing Organization Address [facility] Co de Phone Number [facility] [address] [place] [address] * (ABNORMAL) FACTOR 10 ASSAY (03/05/2023 10:08 EDT) Factor 10 Assay 183(H) 77 - 131 % 03/05/2023 12:30 EDT [facility] Blood VENOUS BLOOD / Unknown Venipuncture / Unknown 03/05/2023 10:08 EDT 03/05/2023 10:13 EDT Jorge Lim MD HEMATOLOGY & PF4 ORDERABLES Performing Organization Address [facility] Co de Phone Number [facility] [address] [place] [address] * (ABNORMAL) FACTOR 9 ASSAY (03/05/2023 10:08 EDT) Factor 9 Assay 205(H) 65 - 150 % 03/05/2023 12:30 EDT [facility] Blood VENOUS BLOOD / Unknown Venipuncture / Unknown 03/05/2023 10:08 EDT 03/05/2023 10:13 EDT Jorge Lim MD HEMATOLOGY & PF4 ORDERABLES Performing Organization Address [facility] Co de Phone Number [facility] [address] [place] [address] * (ABNORMAL) FACTOR 7 ASSAY (03/05/2023 10:08 EDT) Factor 7 Assay 204(H) 50 - 129 % 03/05/2023 12:30 EDT [facility] Blood VENOUS BLOOD / Unknown Venipuncture / Unknown 03/05/2023 10:08 EDT 03/05/2023 10:13 EDT Jorge Lim MD HEMATOLOGY & PF4 ORDERABLES Performing Organization Address City/[facility]/ZIP Co de Phone Number [facility] [address] [place] [address] * (ABNORMAL) FACTOR 5 ASSAY (03/05/2023 10:08 EDT) Factor 5 Assay 142(H) 62 - 139 % 03/05/2023 12:30 EDT [facility] Blood VENOUS BLOOD / Unknown Venipuncture / Unknown 03/05/2023 10:08 EDT 03/05/2023 10:13 EDT Jorge Lim MD HEMATOLOGY & PF4 ORDERABLES Performing Organization Address City/[facility] Co de Phone Number [facility] [address] [place] [address] * (ABNORMAL) FACTOR 2 ASSAY (03/05/2023 10:08 EDT) Factor 2 Assay 151(H) 79 - 131 % 03/05/2023 12:30 EDT [facility] Blood VENOUS BLOOD / Unknown Venipuncture / Unknown 03/05/2023 10:08 EDT 03/05/2023 10:13 EDT Jorge Lim MD HEMATOLOGY & PF4 ORDERABLES Performing Organization Address City/[facility]/ZIP Co de Phone Number [facility] [address] [place] [address] * FACTOR 13 ANTIGEN (03/05/2023 10:08 EDT) Factor 13 Antigen 129.5 57.1 - 168.5 % 03/05/2023 12:30 EDT [facility] Blood VENOUS BLOOD / Unknown Venipuncture / Unknown 03/05/2023 10:08 EDT 03/05/2023 10:13 EDT Jorge Lim MD HEMATOLOGY & PF4 ORDERABLES Performing Organization Address City/[facility]/ZIP Co de Phone Number [facility] [address] [place] [address] * FIBRINOGEN (03/05/2023 10:08 EDT) Fibrinogen 369 171 - 384 mg/dL 03/05/2023 10:39 EDT [facility] Blood VENOUS BLOOD / Unknown Venipuncture / Unknown 03/05/2023 10:08 EDT 03/05/2023 10:13 EDT Jorge Lim MD HEMATOLOGY & PF4 ORDERABLES Performing Organization Address City/[facility] Co de Phone Number [facility] [address] [place] [address] * (ABNORMAL) COMPLETE BLOOD COUNT (03/05/2023 10:08 EDT) WBC 7.81 4.00 - 12.40 K/cmm 03/05/2023 10:30 EDT [facility] RBC 4.96 3.86 - 5.04 M/cmm 03/05/2023 10:30 EDT [facility] Hemoglobin 15.1 11.6 - 15.2 g/dL 03/05/2023 10:30 T [facility] HCT 45.1(H) 34.9 - 44.4 % 03/05/2023 10:30 EDT [facility] MCV 91 81 - 98 fL 03/05/2023 10:30 EDT [facility] MCH 30.4 26.7 - 33.3 pg 03/05/2023 10:30 EDT [facility] MCHC 33.5 32.1 - 35.9 g/dL 03/05/2023 10:30 EDT [facility] RDW-CV 13.1 <14.7 % 03/05/2023 10:30 EDT [facility] RDW-SD 43.1 <50.4 fl 03/05/2023 10:30 EDT [facility] PLT 319 141 - 377 K/cmm 03/05/2023 10:30 EDT [facility] MPV 10.2 9.5 - 12.7 fL 03/05/2023 10:30 EDT [facility] Blood VENOUS BLOOD / Unknown Venipuncture / Unknown 03/05/2023 10:08 EDT 03/05/2023 10:21 EDT Jorge Lim MD HEMATOLOGY & PF4 ORDERABLES [facility] [address] [place] [address] * THROMBIN TIME (03/05/2023 10:08 EDT) Thrombin Time 12.4 10.3 - 16.9 secs 03/05/2023 12:30 EDT [facility] Blood VENOUS BLOOD / Unknown Venipuncture / Unknown 03/05/2023 10:08 EDT 03/05/2023 10:13 EDT Narrative [facility] - 03/05/2023 12:30 EDT Results will be prolonged in the presence of Heparin, direct thrombin inhibitors such as Dabigatran (Pradaxa), Hirudin (Refludan) and Argatroban (Novastan). Jorge Lim MD HEMATOLOGY & PF4 ORDERABLES Performing Organization Address [facility] Co de Phone Number [facility] [address] [place] [address] * PTT (03/05/2023 10:08 EDT) PTT 26 26 - 37 secs 03/05/2023 10:41 EDT [facility] Blood VENOUS BLOOD / Unknown Venipuncture / Unknown 03/05/2023 10:08 EDT 03/05/2023 10:13 EDT Jorge Lim MD HEMATOLOGY & PF4 ORDERABLES Performing Organization Address City/[facility] Co de Phone Number [facility] [address] [place] [address] * PROTIME (03/05/2023 10:08 EDT) I.N.R. 0.9 0.9 - 1.1 Ratio 03/05/2023 10:39 EDT [facility] Pro Time 10.5 9.7 - 12.8 secs 03/05/2023 10:39 EDT [facility] Blood VENOUS BLOOD / Unknown Venipuncture / Unknown 03/05/2023 10:08 EDT 03/05/2023 10:13 EDT Narrative [facility] - 03/05/2023 10:39 EDT Moderate Intensity Coumadin INR = 2.0-3.0 Adjustments in anticoagulant therapy dose should be based on the INR and NOT on the Protime. Jorge Lim MD HEMATOLOGY & PF4 ORDERABLES [facility] [address] [place] [address] documented in this encounter Visit Diagnoses Diagnosis Bleeding disorder ([facility] Primary Unspecified hemorrhagic conditions documented in [...] 03/05/2023 documented in this encounter Care Teams Field Crop Farmer Relationship Specialty Start Date End Date Diya Gifford MD [address] [place] [address] [address] [place] [address] PCP - General 07/26/19 Dariana Juarez MD [address] [place] [address] [address] [place] [address] Consulting Clinician Cardiovascular Disease 02/06/22 documented as of this encounter
--- OUTSIDE RECORDS SUMMARY | 2024-04-22 21:59 | XMS_ITS | Clinical Summary ---
Author Organization [facility] Address [address] [place] [address] Care Team Providers Care Pierogi Maker Name Role Phone Diya Gifford MD Primary Care Provide r Dariana Juarez MD Unavailable [phone] Allergies Active Allergy Reactions Criticality Noted [...] spinal injection 9 Tablet 5 01/05/2024 Active atorvastatin (LIPITOR) 40 mg tablet Take 1 Tablet by mouth at bedtime. 02/25/2024 Active estradioL (ESTRACE) 1 mg tablet Take 1 Tablet by mouth daily. 02/23/2024 Active Active Problems Patient Care Coordination No te Formatting of this note migh t be different from the original. 12/04/21[place] [facility] VERBAL ROSA (PERM TO SPEAK) MOHAMUD HESTER (BANNER) Problem Noted Date Diagnosed Date Obesity 12/06/2020 [...] Encounters Date Type Department Care Team Description 03/04/2024 11:30 EDT Office Visit [facility] Interventional Pain [address] [place] [address] Percy Molina MD Cervical radiculopathy (Primary Dx) 02/23/2024 Lab Requisition [facility] Pathology & Laboratory Medicine - [address] [address] Outr Resulting Lab, Provider from Last 3 Months Medical History Medical [...] Sign Reading Time Taken Comments Blood Pressure 122/88 03/04/2024 1004 EDT Pulse 80 03/04/2024 1004 EDT Temperature 36.5 ??C (97.7 ??F) 10/26/2023 0812 EDT Respiratory Rate 16 03/04/2024 1004 EDT Oxygen Saturation 98% 03/04/2024 1004 EDT Inhaled Oxygen Concentration - - Weight 85.1 kg (187 lb 9.6 oz) 09/23/2023 0649 E DT Height 152.4 cm (5') 09/23/2023 0649 EDT Body Mass Index 36.64 09/23/2023 0649 EDT Plan of Treatment Upcoming Encounters Date Type Department Care Team (Late st Contact Info) Description 04/26/2024 9:15 EDT Office Visit [facility] Interventional Pain [address] [facility] [place] [address] Percy Molina MD [address] [facility] [address] [place] [address] 01/25/2026 12:00 EDT Office Visit [facility] Hematology & Oncology - [facility] [address] [place], [place] [phone] Jorge Lim MD [address] [facility], [address] [place] [phone] Health Maintenance Due Date Last Done Comments Hepatitis B Vaccine (1 of 3 - 19+ 3-dose series) 01/26 COVID-19 Vaccine ( season) 2024 Hepatitis C Screen Completed 12/16/2021 Medical Devices Implanted Type Area Furniture Shampooer Device Identifier Shelf Expiration Date Model / Serial / Lot Bone Bone Right: Hip Dental Dental Bilateral: Mouth Explanted Type Area Furniture Shampooer Device Identifier Shelf Expiration Date Model / Serial / Lot System Reveal Linq Ii - [id number] Implanted:Qty: 1 on 05/08/2022 by Seferino Chambers MD at [facility] Explanted:Qty: 1 on 09/23/2023 by Seferino Chambers MD Pacemaker N/A: Chest [employer] 07/09/2023 [id number] / [id number] / Procedures Procedure Name Priority Date/Time Associated Diagnosis Comments FSH Routine 02/23/2024 10:30 EDT HEPATITIS C AB W REFLEX TO HCV RNA BY PCR Routine 12/16/2021 11:00 EDT from Last 3 Months or Most Recently Relevant to Health Maintenance Results * FSH (02/23/2024 10:30 EDT) FSH 1.1 See Note mIU/mL 02/23/2024 23:16 EDT [facility] Blood VENOUS BLOOD / Unknown 02/23/2024 10:30 EDT 02/23/2024 21:48 EDT Narrative [facility] - 02/23/2024 23:16 EDT NOTE: Female FSH Reference Ranges (Menstruating): PHYSIOLOGICAL STATUS ? REFERENCE RANGE ? Follicular (-12 to -4 days): ?? 2.5 - 10.2 mIU/mL Midcycle (-3 to +2 days): ?3.4 - 33.4 mIU/mL Luteal (+4 to +12 days): ? 1.5 - 9.1 mIU/mL Postmenopausal: ?23.0 - 116.3 mIU/mL Reference Ranges for pediatric non-menstruating female patients have not been established. Provider Outr Resulting Lab CHEMISTRY & BLOOD GAS ORDERABLES [facility] [address] [place] [address] * HEPATITIS C AB W REFLEX TO HCV RNA BY PCR (12/16/2021 11:00 EDT) Hep C Antibody Negative Negative 12/17/2021 10:10 EDT [facility] Blood VENOUS BLOOD / Unknown 12/16/2021 11:00 EDT 12/16/2021 21:15 EDT Provider Outr Resulting Lab CHEMISTRY & BLOOD GAS ORDERABLES [facility] [address] [place] [address] from Last 3 Months or Most Recently Relevant to Health Maintenance Advance Directives For more information, please contact: [phone] * Full Code (Latest Code Status on [...] Made the Decision? Default/Not Discussed Care Teams Pierogi Maker Relationship Specialty Start Date End Date Diya Gifford MD [address] [place] [id number] PCP - General 07/26/19 Dariana Juarez MD [address] [place] [address] [address] [place] [phone] Consulting Clinician Cardiovascular Disease 02/06/22
--- OUTSIDE RECORDS SUMMARY | 2024-04-22 21:59 | XMS_ITS | Encounter Summary ---
Author Organization [facility] Address [address] [place] [address] Care Team Providers Care Astronomy Instructor Name Role Phone Diya Gifford MD Primary Care Provide r Dariana Juarez MD Unavailable [phone] Reason for Visit * Auth/Cert (Routine) Specialty Diagnoses / Procedures Referred By [facility] Referred To Contact Diagnoses Syncope, unspecified syncope type Syncope, unspecified syncope type [R55] Procedures NM REMOVAL SUBCUTANEOUS CARDIAC RHYTHM MONITOR REMOVAL, CARDIAC RHYTHM MONITORING DEVICE, SUBCUTANEOUS Referral ID Status Reason Start Date Expiration Date Visits Re quested Visits Authorized [id number] 1 1 Encounter Details Date Type Department Care Team (Latest Contact Info) Description 09/23/2023 6:02 EDT - 09/23/2023 8:57 EDT Hospital Encounter [facility] Operating Room [address] [place] [address] Seferino Chambers MD [address] [place] [address] [address] [place] [phone] Syncope, unspecified syncope type (Primary Dx) Discharge [...] not included. Discharge Instructions for Patients with cartridge feeder explants Wound Care: If derma-minor was used, [...] DEVICE, SUBCUTANEOUS Operative Note Date: 09/23/2023 [place] [facility]: Marilin Allen, : 1975, Diagnosis [...] (Active) Wound 09/23/23 Incision Chest (Active) Staff: Document Preparer Microfilming: Poly Khan RN Relief Document Preparer Microfilming: Rinku Yost RN Scrub Person: Sandi Harry [...] blunt and sharp dissection, th e device (Lookery Reveal LINQII) was accessed without problems and explanted. Manual pressure washeld for 5 minutes for hemostasis. The incision was then closed with a single horizontal suture using 4-0 Biosyn suture material. The skin was then closed with Dermabond skin glue. 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 CPT 71542. Complications: None; patient tolerated the procedure well. Disposition: PACU - hemodynamically stable. Condition: stable Specimens:None Implants: none Seferino Chambers MD documented in this encounter Miscellaneous Notes * Brief Op Note - Seferino Chambers MD - 09/23/2023 0834 EDT Date: 09/23/2023 [place] [facility] [place] Name: Marilin Allen, : 1975, Diagnosis [...] (Active) Wound 09/23/23 Incision Chest (Active) Staff: Document Preparer Microfilming: Poly Khan RN Scrub Person: Sandi Harry [...] Info) Description 04/26/2024 9:15 EDT Office Visit [facility] Interventional Pain [address] [place], [place] [phone] Percy Molina MD [address] [place] [address] 01/25/2026 12:00 EDT Office Visit [facility] Hematology & Oncology - [facility] [address] [place], [place] [phone] Jorge Lim MD [address] [facility], [facility], [address] [place] [address] documented as of this encounter Procedures Procedure Name Priority Date/Time Associated Diagnosis Comments REMOVAL, CARDIAC RHYTHM MONITORING DEVICE, SUBCUTANEOUS 09/23/2023 7:46 EDT Syncope, unspecified syncope type Special Needs 08/17- contacted Lookery documented in this encounter Visit Diagnoses Diagnosis [...] 09/23/2023 documented in this encounter Care Teams Astronomy Instructor Relationship Specialty Start Date End Date Diya Gifford MD [address] [place] [address] PCP - General 07/26/19 Dariana Juarez MD [address] [place] [address] [address] [place] [address] Consulting Clinician Cardiovascular Disease 02/06/22 documented as of this encounter
--- OUTSIDE RECORDS SUMMARY | 2024-04-22 21:59 | XMS_ITS | Encounter Summary ---
Author Organization [facility] Address [address] [place] [address] Care Team Providers Care Hog Confinement System Manager Name Role Phone Diya Gifford MD Primary Care Provide r Dariana Juarez MD Unavailable [phone] Encounter Details Date Type Department Care Team (Late st Contact Info) Description 01/28/2023 Orders Only [facility] [address] [place] [address] RN Encounter for loop [...] Info) Description 04/26/2024 9:15 EDT Office Visit [facility] Interventional Pain [address] [place] [address] Percy Molina MD [address] [place] [address] 01/25/2026 12:00 EDT Office Visit [facility] Hematology & Oncology - [facility] [address] [place], [place] [phone] Jorge Lim MD [address] [facility], [address] [place] [address] documented as of this encounter [...] device documented in this encounter Care Teams Hog Confinement System Manager Relationship Specialty Start Date End Date Diya Gifford MD [address] [place] [address] PCP - General 07/26/19 Dariana Juarez MD [address] [place] [address] [address] Consulting Clinician Cardiovascular Disease 02/06/22 documented as of this encounter
--- OUTSIDE RECORDS SUMMARY | 2024-04-22 21:59 | XMS_ITS | Referral Summary ---
Author Organization [facility] Address [address] [place] [address] Care Team Providers Care Licensed Optician Name Role Phone Diya Gifford MD Primary Care Provide r Dariana Juarez MD Unavailable [phone] Encounters Date Type Department Care Team Description 03/04/2024 11:30 EDT Office Visit [facility] Interventional Pain [address] [place], [place] [phone] Percy Molina MD Cervical radiculopathy (Primary Dx) 02/23/2024 Lab Requisition [facility] Pathology & Laboratory Medicine - Main [place] [address] [place] [address] Outr Resulting Lab, Provider from Last 3 Months Allergies Active Allergy [...] t be different from the original. 12/04/21- [facility] MGP VERBAL ROSA (PERM TO SPEAK) MOHAMUD HESTER (SONS) Problem Noted Date Diagnosed Date [...] Info) Description 04/26/2024 9:15 EDT Office Visit [facility] Interventional Pain 62 [facility] [place], [place] [phone] Percy Molina MD 62 [facility] [address] [place] [address] 01/25/2026 12:00 EDT Office Visit [facility] Hematology & Oncology - [facility] [address] [place] [address] Jorge Lim MD 111 [facility], Level 2 [place] [phone] Medical Devices Implanted Type Area Sweet Potato Disintegrator Device Identifier Shelf Expiration Date Model / Serial / Lot Bone Bone Right: Hip Dental Dental Bilateral: Mouth Explanted Type Area Sweet Potato Disintegrator Device Identifier Shelf Expiration Date Model / Serial / Lot System Reveal Linq Ii - [id number] Implanted:Qty: 1 on 05/08/2022 by Seferino Chambers MD at [facility] Explanted:Qty: 1 on 09/23/2023 by Seferino Chambers MD Pacemaker N/A: Chest [employer] 07/09/2023 [id number] / [id number] / Procedures Procedure Name Priority Date/Time Associated Diagnosis Comments FSH Routine 02/23/2024 10:30 EDT HEPATITIS C AB W REFLEX TO HCV RNA BY PCR Routine 12/16/2021 11:00 EDT from Last 3 Months or Most Recently Relevant to Health Maintenance Results * FSH (02/23/2024 10:30 EDT) FSH 1.1 See Note mIU/mL 02/23/2024 23:16 EDT [facility] Blood VENOUS BLOOD / Unknown 02/23/2024 10:30 EDT 02/23/2024 21:48 EDT Narrative [facility] - 02/23/2024 23:16 EDT NOTE: [...] Resulting Lab CHEMISTRY & BLOOD GAS ORDERABLES [facility] [address] [place] [address] * HEPATITIS C AB W REFLEX TO HCV RNA BY PCR (12/16/2021 11:00 EDT) Hep C Antibody Negative Negative 12/17/2021 10:10 EDT [facility] Blood VENOUS BLOOD / Unknown 12/16/2021 11:00 EDT 12/16/2021 21:15 EDT Provider Outr Resulting Lab CHEMISTRY & BLOOD GAS ORDERABLES [facility] [address] [place] [address] from Last 3 Months or Most Recently Relevant to Health Maintenance Advance Directives For more information, please contact: [phone] * Full Code (Latest Code Status on [...] Made the Decision? Default/Not Discussed Care Teams Licensed Optician Relationship Specialty Start Date End Date Diya Gifford MD [address] [place] [address] PCP - General 07/26/19 Dariana Juarez MD [address] [place] [address] [address] [place] [phone] Consulting Clinician Cardiovascular Disease 02/06/22
--- OUTSIDE RECORDS SUMMARY | 2024-04-22 21:59 | XMS_ITS | Encounter Summary ---
Author Organization [facility] Address [address] [place] [address] Care Team Providers Care Supervisor Poultry Processing Name Role Phone Diya Gifford MD Primary Care Provide r Dariana Juarez MD Unavailable [phone] Reason for Visit * Auth/Cert (Routine) Specialty Diagnoses / Procedures Referred By [facility] Referred To Contact Diagnoses Syncope, unspecified syncope type Syncope, unspecified syncope type [R55] Procedures NC REMOVAL SUBCUTANEOUS CARDIAC RHYTHM MONITOR REMOVAL, CARDIAC RHYTHM MONITORING DEVICE, SUBCUTANEOUS Referral ID Status Reason Start Date Expiration Date Visits Re quested Visits Authorized [id number] 1 1 Encounter Details Date Type Department Care Team (Late st Contact Info) Description 09/23/2023 7:30 EDT - 09/23/2023 8:35 EDT Surgery [facility] [place] Room [address] [place] [phone] Seferino Chambers MD [address] [place] [address] [address] [place] [address] REMOVAL, CARDIAC RHYTHM MONITORING DEVICE, SUBCUTANEOUS [13961 (CPT??)] Surgery Details Date/Time Status Location OR Service Patient Class Case Cl ass Case Type Trauma Case? 09/23/23 0730 Posted [facility] [place] 02 Cardiovascular Ho spital Outpatient [...] not included. Discharge Instructions for Patients with monitoring analyst explants Wound Care: If derma-minor was used, [...] DEVICE, SUBCUTANEOUS Operative Note Date: 09/23/2023 Location: [facility] [place] Name: Marilin Allen, : 1975, Diagnosis [...] (Active) Wound 09/23/23 Incision Chest (Active) Staff: Math And Science Instructor: Poly Khan RN Relief Math And Science Instructor: Rinku Yost RN Scrub Person: Sandi Harry [...] explantation of a Medtronic Reveal LINQ implanted electronic device monitor. CPT 40164. Complications: None; patient tolerated the procedure well. Disposition: PACU - hemodynamically stable. Condition: stable Specimens:None Implants: none Seferino Chambers MD documented in this encounter Miscellaneous Notes * Brief Op Note - Seferino Chambers MD - 09/23/2023 0834 EDT Date: 09/23/2023 Location: [facility] [place] Name: Marilin Allen, : 1975, Diagnosis [...] (Active) Wound 09/23/23 Incision Chest (Active) Staff: Math And Science Instructor: Poly Khan RN Scrub Person: Sandi Harry [...] Office Visit [facility] Interventional Pain 62 [facility] [place] [address] Percy Molina MD 62 [facility] [address] [place] [address] 01/25/2026 12:00 EDT Office Visit [facility] Hematology & Oncology - [facility] [address] [place], [place] [phone] Jorge Lim MD 111 [facility], [facility], [address] [place] [phone] documented as of this encounter Procedures Procedure Name Priority Date/Time Associated Diagnosis Comments REMOVAL, CARDIAC RHYTHM MONITORING DEVICE, SUBCUTANEOUS 09/23/2023 7:46 EDT Syncope, unspecified syncope type Special Needs 08/17- contacted [employer] documented in this encounter Visit Diagnoses Diagnosis [...] 09/23/2023 documented in this encounter Care Teams Supervisor Poultry Processing Relationship Specialty Start Date End Date Diya Gifford MD [address] [place] [address] [address] [place] [address] PCP - General 07/26/19 Dariana Juarez MD [address] [place] [address] [address] [place] [address] Consulting Clinician Cardiovascular Disease 02/06/22 documented as of this encounter
--- OUTSIDE RECORDS SUMMARY | 2024-04-22 21:59 | XMS_ITS | Encounter Summary ---
Author Organization [facility] Address [address] [place] [address] Care Team Providers Care Public Relations Supervisor Name Role Phone Diya Gifford MD Primary Care Provide r Dariana Juarez MD Unavailable [phone] Reason for Visit * Reason Onset Date Comments Follow-up 07/01/2023 Encounter Details Date Type Department Care Team (Late st Contact Info) Description 07/01/2023 Telephone [facility] Cancer Center Hematology & Oncology - [facility] [address] [place] [address] Missy Harris RN [address] [place] [address] Follow-up Social History Tobacco Use Types Packs/Day [...] could have the TXA script sent to [facility] instead of [facility] and replied that is possible. A new script has been sent to [facility] in [place]. HAP created for future spi nal injection. Marilin has no further questions and verbalized understanding. documented in this encounter Plan of Treatment Upcoming Encounters Date Type Department Care Team (Late st Contact Info) Description 04/26/2024 9:15 EDT Office Visit [facility] Interventional Pain [address] [place] [address] Percy Molina MD 62 [facility] [address] [place] [address] 01/25/2026 12:00 EDT Office Visit [facility] Cancer Center Hematology & Oncology - [facility] [address] [place], [place] [phone] Jorge Lim MD 111 [facility] 2 [place] [address] documented as of this encounter Visit Diagnoses Not on filedocumented in this encounter Discontinued Medications Medication Sig Discontinue Reason Start Date End Da te tranexamic acid 650 mg tablet Take 2 tablets three times a day on day of spinal injection; take 1 tablet 3 times a day on day after spinal injection Reorder 06/30/2023 07/01/2023 documented as of this encounter Care Teams Public Relations Supervisor Relationship Specialty Start Date End Date Diya Gifford MD [address] [place] [address] [address] [place] [address] PCP - General 07/26/19 Dariana Juarez MD [address] [place] [address] [address] [place] [phone] Consulting Clinician Cardiovascular Disease 02/06/22 documented as of this encounter
--- OUTSIDE RECORDS SUMMARY | 2024-04-22 21:59 | XMS_ITS | Encounter Summary ---
Author Organization [facility] Address [address] [place] [address] Care Team Providers Care Rig Superintendent Name Role Phone Diya Gifford MD Primary Care Provide r Dariana Juarez MD Unavailable [phone] Encounter Details Date Type Department Care Team (Late st Contact Info) Description 07/01/2023 Orders Only [facility] Cancer Center Hematology & Oncology - [facility] [address] [place] [address] Missy Harris, RN [address] [place] [address] Bleeding disorder (HCC-CMS) (Primary Dx) Social History [...] Info) Description 04/26/2024 9:15 EDT Office Visit [facility] Interventional Pain [address] [place] [address] Percy Molina MD [address] [place] [address] 01/25/2026 12:00 EDT Office Visit [facility] Hematology & Oncology - [facility] [address] [place] [address] Jorge Lim MD 111 [facility], [address] [place] [address] documented as of this encounter Results * MISCELLANEOUS TEST, LEVINE (08/10/2023 9:14 EST) [facility] Miscellaneous Test, [place] SEE NOTE 08/20/2023 15:23 EST [facility] Comment: Test ? Result ? [...] developed and its performance characteristics ?determined by [facility] in a manner consistent with CLIA ?requirements. This test has not been cleared or approved by ?the U.S. Food and Drug Administration. ?Test Performed by: ?[facility] ?[address] [place] [address] ?Supervisor Pigment Making: Liban Aly M.D. Ph.D.; CLIA# [id number] Blood VENOUS BLOOD / Unknown Venipuncture / Unknown 08/10/2023 9:14 EST 08/10/2023 9:24 EST Jorge Lim MD CHEMISTRY & BLOOD GAS ORDERABLES Performing Organization Address City/[facility]/ZIP Co de Phone Number [facility] [address] [place] [address] * MISCELLANEOUS TEST, MANASSAS (08/10/2023 9:14 EST) Pathologist [facility] Miscellaneous Test, [place] SEE NOTE 08/26/2023 12:22 EST [facility] Comment: Test ? Result ?? Flag ??Unit ?RefValue Fibrinolysis Profile II ?SEE NOTE ??Not ReportedNot Reported ??Not Reported ?Testing is complete. Final report has been sent to the ?referring laboratory. ?Note: There may be a delay of up to 2 hours before ?report is available to view. ?Test Performed by: ?[facility] ?[address] ?[address] ?[place] [address] Blood VENOUS BLOOD / Unknown Venipuncture / Unknown 08/10/2023 9:14 EST 08/10/2023 9:20 EST Narrative [facility] - 08/26/2023 12:22 EST See scanned/supplementary report. Jorge Lim MD CHEMISTRY & BLOOD GAS ORDERABLES Performing Organization Address City/[facility]/ZIP Co de Phone Number [facility] [address] [place] [address] documented in this encounter Visit Diagnoses Diagnosis Bleeding disorder ([facility])- Primary Unspecified hemorrhagic conditions documented in this encounter Care Teams Rig Superintendent Relationship Specialty Start Date End Date Diya Gifford MD [address] [facility] [address] [place], [place] [address] PCP - General 07/26/19 Dariana Juarez MD [address] [place] [phone] Consulting Clinician Cardiovascular Disease 02/06/22 documented as of this encounter
--- OUTSIDE RECORDS SUMMARY | 2024-04-22 21:59 | XMS_ITS | Encounter Summary ---
Author Organization [facility] Address [address] [place] [address] Care Team Providers Care Natural Gas Inspector Name Role Phone Diya Gifford MD Primary Care Provide r Dariana Jaurez MD Unavailable [phone] Reason for Visit * Reason Onset Date Comments Follow-up 07/08/2023 Encounter Details Date Type Department Care Team (Late st Contact Info) Description 07/08/2023 Telephone [facility] Cancer Center Hematology & Oncology - Main [place] [address] [place] [address] Missy Harris RN [address] [place] [address] Follow-up Social History Tobacco Use Types Packs/Day [...] Telephone Encounter - Missy Harris, RN - 07/08/2023 1228 EST Spoke to Marilin to let her know that her labs need to be drawn on a Thursday, Thursday or Thursday. She verbalized understanding and plans to get them drawn sometime next week. documented in this encounter Plan of Treatment Upcoming Encounters Date Type Department Care Team (Late st Contact Info) Description 04/26/2024 9:[address] [facility] Interventional Pain 62 [facility] [place], [place] [phone] Percy Molina MD 62 [facility] [address] [place] [address] 01/25/2026 12:00 EDT Office Visit [facility] Hematology & Oncology - [facility] [address] [place], [place] [phone] Jorge Lim MD 111 [facility], [address] [place] [address] documented as of this encounter Visit Diagnoses Not on filedocumented in this encounter Care Teams Natural Gas Inspector Relationship Specialty Start Date End Date Diya Gifford MD [address] [place] [address] [address] [place], [place] [address] PCP - General 07/26/19 Dariana Juarez MD [address] [place] [address] [address] [place] [phone] Consulting Clinician Cardiovascular Disease 02/06/22 documented as of this encounter
--- OUTSIDE RECORDS SUMMARY | 2024-04-22 21:59 | XMS_ITS | Encounter Summary ---
Author Organization [facility] Address [address] [place] [address] Care Team Providers Care Legislators Name Role Phone Diya Gifford MD Primary Care Provide r Dariana Juarez MD Unavailable [phone] Reason for Visit * Reason Comments Shoulder Pain Left * Consult (Routine) - Authorization Not Required Specialty Diagnoses / Procedures [facility] Referred To Contact Pain Medicine Diagnoses Other chronic pain Diya Gifford MD 4 [facility] [address] [place] [address] [facility] [address] [place] [address] Referral ID Status Reason Start Date Expiration Date Visits Requested Visits Authorized [id number] Authorization Not Required 1 1 Encounter Details Date Type Department Care Team (Latest Contact Info) Description 10/14/2023 14:[address] [facility] Interventional Pain [address] [place] [address] Hailee Caceres PA-C 62 [facility] [address] [place] [address] Radicular pain of upper extremity [...] EDT [facility] Outpatient PAIN Consult Patient Name: [...] was getting injections at [facility]. She was then told that she had [...] flex 5/5 5/5 Finger abd 5/5 5/5 Motor Vehicle Assembly Supervisor 5/5 5/5 Assessment and Plan Encounter Diagnoses [...] questions. Hailee Caceres PA-C Interventional Pain Medicine [facility] 10/14/23 I spent a total [...] [facility] 62 [place] [address] Percy Molina MD 62 [facility] [address] [place] [address] 01/25/2026 12:00 EDT Office Visit [facility] Cancer Center Hematology & Oncology - [facility] [address] [place], [place] [phone] Jorge Lim MD 111 [facility], [facility], [address] 2 [place] [phone] documented as of this encounter Visit Diagnoses Diagnosis Radicular pain of upper extremity- Primary Cervical radiculopathy Brachial neuritis or radiculitis nos documented in this encounter Care Teams Legislators Relationship Specialty Start Date End Date Diya Gifford MD [address] [place] [address] PCP - General 07/26/19 Dariana Juarez MD [address] [place] [address] [address] [place] [phone] Consulting Clinician Cardiovascular Disease 02/06/22 documented as of this encounter
--- OUTSIDE RECORDS SUMMARY | 2024-04-22 21:59 | XMS_ITS | Encounter Summary ---
Author Organization [facility] Address [address] [place] [address] Care Team Providers Care Bank Messenger Name Role Phone Diya Gifford MD Primary Care Provide r Dariana Juarez MD Unavailable [phone] Encounter Details Date Type Department Care Team (Late st Contact Info) Description 12/01/2022 Orders Only [facility] [address] [place] [address] Gwendolyn Martinez MA Encounter for loop [...] Info) Description 04/26/2024 9:15 EDT Office Visit [facility] Interventional Pain [address] [place], [place] [phone] Percy Molina MD 62 [facility] [address] [place] [address] 01/25/2026 12:00 EDT Office Visit [facility] Cancer Center Hematology & Oncology - [facility] [address] [place], [place] [phone] Jorge Lim MD 111 [facility], [facility], [address] [place] [phone] documented as of this encounter Procedures Procedure [...] device documented in this encounter Care Teams Bank Messenger Relationship Specialty Start Date End Date Diya Gifford MD [address] [place] [address] [address] [place] [address] PCP - General 07/26/19 Dariana Juarez MD [address] [place] [phone] Consulting Clinician Cardiovascular Disease 02/06/22 documented as of this encounter
--- OUTSIDE RECORDS SUMMARY | 2024-04-22 21:59 | XMS_ITS | Encounter Summary ---
Author Organization [facility] Address [address] [place] [address] Care Team Providers Care Mixed Livestock Farmer Name Role Phone Diya Gifford MD Primary Care Provide r Dariana Juarez MD Unavailable [phone] Encounter Details Date Type Department Care Team (Late st Contact Info) Description 02/23/2024 Lab Requisition [facility] Pathology & Laboratory Medicine - [facility] [address] [place] [address] Outr Resulting Lab, Provider Social History Tobacco [...] [facility] Interventional Pain [address] [place] [address] Percy Molina MD [address] [facility] [address] [place] [address] 01/25/2026 12:00 EDT Office Visit [facility] [place] Hematology & Oncology - [facility] [address] [place], [place] [phone] Jorge Lim MD 111 [facility], [address] [place] [address] documented as of this encounter Procedures Procedure Name Priority Date/Time Associated Diagnosis Comments FSH Routine 02/23/2024 10:30 EDT documented in this encounter Results * FSH (02/23/2024 10:30 EDT) FSH 1.1 See Note mIU/mL 02/23/2024 23:16 EDT [facility] Blood VENOUS BLOOD / Unknown 02/23/2024 10:30 EDT 02/23/2024 21:48 EDT Narrative [facility] - 02/23/2024 23:16 EDT NOTE: [...] Resulting Lab CHEMISTRY & BLOOD GAS ORDERABLES [facility] [address] [place], [place] [phone] documented in this encounter Visit Diagnoses Not on filedocumented in this encounter Care Teams Mixed Livestock Farmer Relationship Specialty Start Date End Date Diya Gifford MD [address] [place] [address] [address] [place] [address] PCP - General 07/26/19 Dariana Juarez MD [address] [place] [address] [address] [place] [phone] Consulting Clinician Cardiovascular Disease 02/06/22 documented as of this encounter
--- OUTSIDE RECORDS SUMMARY | 2024-04-22 21:59 | XMS_ITS | Encounter Summary ---
Author Organization [facility] Address [address] [place] [address] Care Team Providers Care Mental Health Tech Name Role Phone Diya Gifford MD Primary Care Provide r Dariana Juarez MD Unavailable [phone] Reason for Visit * Reason Comments Follow-up Follow up Encounter Details Date Type Department Care Team (Latest Contact Info) Description 03/04/2024 11:30 EDT Office Visit [facility] Interventional Pain 62 [facility] [place] [address] Percy Molina MD 62 [facility] [address] [place] [address] Cervical radiculopathy (Primary Dx) Social [...] EDT Pulse 80 03/04/2024 1004 EDT Temperature - - Respiratory Rate 16 03/04/2024 1004 EDT Oxygen [...] as of this encounter Progress Notes * Max Brice MA - 03/04/2024 1130 EDT Follow up With Dr. Molina * Percy Molina MD - 03/04/2024 1130 EDT [facility] Outpatient Pain Follow Up Patient Name: Marilin Allen : 1975 Date of Service: 03/11/2024 Primary Care Provider: Diya Gifford Chief complaint: Chief Complaint Patient presents with Follow-up Follow up History of Present Illness/Pain complaint: Marilin Allen is a 49 y.o. female with a past medical history of cleft palate ( s/p multiple surgeries ) , TMJ, depression, PTSD seen today for evaluation of a chief complaint of neck and left shoulder /scapular pain. Rated as severe. As stated previously, Location of Pain/ Radicular pattern: Pain is [...] was getting injections at [facility]. She was then told that she had bleeding issues . She followed up with hematologywho did not discover any bleeding disorder. However, patient has a prescription for TXA. This pain has had a negative impact on the patients quality of life as she has not been able to complete her daily activities. Prior interventional pain procedures and response include: 01/15/24: C7-T1 DARREN - no benefit 10/26/23 with Ruffin: C7T1 DARREN - > 50% improvement x3 months She reports that she was getting cervical epidurals every 3 months at the [facility]. She reports that she always had > 50% relief and significant improvement in functioning. However, the last procedure (performed by me) did not help Conservative treatment Physical therapy: She has been [...] Outpatient Medications Marked as Taking for the 03/04/24 encounter (Office Visit) with Percy Molina MD Medication Sig Dispense Refill amitriptyline (ELAVIL) 100 mg tablet 1 Tablet daily. atorvastatin (LIPITOR) 40 mg tablet Take 1 Tablet by mouth at bedtime. cyanocobalamin (VITAMIN B-12) 500 mcg tablet Take 1 Tablet by mouth daily. diclofenac sodium gel Apply topically 2 times daily. doxycycline (VIBRAMYCIN) 100 mg capsule Take by mouth daily. estradioL (ESTRACE) 1 mg tablet Take 1 Tablet by mouth daily. fexofenadine (ZACHARY) 60 mg [...] day after spinal injection 9 Tablet 5 traZODone (DESYREL) 50 mg tablet venlafaxine (EFFEXOR-XR) 150 mg XR capsule Take 75 mg by mouth daily. zolpidem (AMBIEN) 5 mg tablet Take 1 Tablet by mouth at bedtime. Past Medical History: Diagnosis Date Cleft palate [...] on file Social Determinants of Health Financial Strain: Not on file Food Insecurity: Not on file Transportation Needs: Not on file Physical Activity: Not on file Housing Stability: Not on file Family History Problem Relation Age of Onset *Other(comment) Father Cancer Sister Review of Systems A 10 point review of system was performed and reviewed. Pertinent positives have been included in HPI and past medical history. All others negative. Physical Examination Vitals: Blood pressure 122/88, pulse 80, resp. rate 16, SpO2 98%. General: Pleasant, cooperative, mood and affect are [...] flex 5/5 5/5 Finger abd 5/5 5/5 Repair Cameraman 5/5 5/5 Assessment and Plan Encounter Diagnoses Name Primary? Cervical radiculopathy Yes We talked about the fact that I'm not sure why she has had such significant improvement with these procedures and then she suddenly did not. Because her response has been so consistent, I'm hesitant to changed the plan because one procedure was not as helpful. Therefore, I'm going to repeat the procedure, but if she does not have the same response as previously, I'll consider a different plan.Shemight do better with a C6C7 approach. Interventional Plan: Recommend proceeding with cervical epidural [...] proceed. Non- Interventional Plan: Continue at home exercises, if she does well with this next procedure I would recommend she have a PT review her routine to see if she should be progressing Thank you for the consultation, please call with any questions. Jesse VALLE documented in this encounter Plan of Treatment Upcoming Encounters Date Type Department Care Team (Late st Contact Info) Description 04/26/2024 9:15 EDT Office Visit [facility] Interventional Pain [address] [facility] [place] [address] Percy Molina MD 62 [facility] [address] [place] [address] 01/25/2026 12:00 EDT Office Visit [facility] Cancer Center Hematology & Oncology - [address] [address] Jorge Lim MD 111 [facility], [facility], Level 2 [place] [address] documented as of this encounter Visit Diagnoses Diagnosis Cervical radiculopathy- Primary Brachial neuritis or radiculitis nos documented in this encounter Historical Medications * This list may reflect changes made after this encounter. Medication Sig Dispensed Refills Start Date End Date estradioL (ESTRACE) 1 mg tablet Take 1 Tablet by mouth daily. 02/23/2024 atorvastatin (LIPITOR) 40 mg tablet Take 1 Tablet by mouth at bedtime. 02/25/2024 added in this encounter Care Teams Mental Health Tech Relationship Specialty Start Date End Date Diya Gifford MD [address] [place] [address] PCP - General 07/26/19 Dariana Juarez MD [address] [place] [address] [phone] Consulting Clinician Cardiovascular Disease 02/06/22 documented as of this encounter
--- OUTSIDE RECORDS SUMMARY | 2024-04-22 21:59 | XMS_ITS | Encounter Summary ---
Author Organization [facility] Address [address] [place] [address] Care Team Providers Care Dental Hygiene Instructor Name Role Phone Diya Gifford MD Primary Care Provide r Dariana Juarez MD Unavailable [phone] Reason for Visit * Reason Comments Follow-up Implant - medtronic Encounter Details Date Type Department Care Team (Late st Contact Info) Description 01/28/2023 9:00 EDT Office Visit [facility] [address] [place], [place] [address] Dariana Juarez MD 111 [facility] 1 [place] [address] Syncope, unspecified syncope type (Primary [...] Dariana Juarez MD - 01/28/2023 09 EDT [facility] Office Visit Subjective: Chief Complaint(s): Follow-up [...] prodrome. Went to the emergency room at [facility] was admitted for monitoring. Echocardiogram at [...] . ECG with normal QTc. TTE from [facility] was normal. Stress test was normal. Month-long hospital monitor did not catch any syncopal episodes, so [...] Info) Description 04/26/2024 9:15 EDT Office Visit [facility] Interventional Pain 62 [facility] [place], [place] [phone] Percy Molina MD [address] [facility] [address] [place] [address] 01/25/2026 12:00 EDT Office Visit [facility] [place] [facility]ematology & Oncology - [facility] [address] [place], [place] [phone] Jorge Lim MD 111 [facility], [address] 2 [place] [phone] documented as of this encounter Visit Diagnoses Diagnosis Syncope, unspecified syncope type- Primary documented in this encounter Care Teams Dental Hygiene Instructor Relationship Specialty Start Date End Date Diya Gifford MD [address] [place] [address] [address] [place], [place] [phone] PCP - General 07/26/19 Dariana Juarez MD [address] [place] [address]- [address] [place] [phone] Consulting Clinician Cardiovascular Disease 02/06/22 documented as of this encounter
--- OUTSIDE RECORDS SUMMARY | 2024-04-22 21:59 | XMS_ITS | Encounter Summary ---
Author Organization [facility] Address [address] [place] [address] Care Team Providers Care Health Care Marketing Manager Name Role Phone Diya Gifford MD Primary Care Provide r Dariana Juarez MD Unavailable [phone] Encounter Details Date Type Department Care Team (Late st Contact Info) Description 02/27/2023 Orders Only [facility] Cardiology Clinic [address] [place] [address] Gwendolyn Martinez MA Encounter for loop [...] Info) Description 04/26/2024 9:15 EDT Office Visit [facility] Interventional Pain [address] [place], [place] [phone] Percy Molina MD 62 [facility] [address] [place] [address] 01/25/2026 12:00 EDT Office Visit [facility] Cancer Center Hematology & Oncology - [facility] [address] [place], [place] [phone] Jorge Lim MD 111 [facility], [address] 2 [place] [address] documented as of this encounter Visit Diagnoses Diagnosis Encounter for loop recorder check- Primary Fitting and adjustment of other cardiac device documented in this encounter Orders Imaging Orders Without Results Count Last Order ed Date First Ordered Date CARDIAC IMPLANT CHECK - REMOTE MONITOR 1 documented in this encounter Care Teams Health Care Marketing Manager Relationship Specialty Start Date End Date Diya Gifford MD [address] [place] [address] [address] [place] [address] PCP - General 07/26/19 Dariana Juarez MD [address] [place] [address]- [address] [place] [phone] Consulting Clinician Cardiovascular Disease 02/06/22 documented as of this encounter
--- OUTSIDE RECORDS SUMMARY | 2024-04-22 21:59 | XMS_ITS | Encounter Summary ---
Author Organization [facility] Address [address] [place] [address] Care Team Providers Care Automobile Body Repair Supervisor Name Role Phone Diya Gifford MD Primary Care Provide r Dariana Juarez MD Unavailable [phone] Encounter Details Date Type Department Care Team (Latest Contact Info) Description 10/26/2023 7:59 EDT - 10/26/2023 23:59 EDT Hospital Encounter [facility] Pain Clinic Xray [address] [place], [place] [phone] Discharge Disposition: Home or Self Care Social [...] Info) Description 04/26/2024 9:15 EDT Office Visit [facility] Interventional Pain [address] [place], [place] [phone] Percy Molina MD 62 [facility] [address] [place] [address] 01/25/2026 12:00 EDT Office Visit [facility] Center Hematology & Oncology - [facility] [address] [place], [place] [phone] Jorge Lim MD 111 [facility], [facility], Level 2 [place] [address] documented as of this encounter [...] on filedocumented in this encounter Care Teams Automobile Body Repair Supervisor Relationship Specialty Start Date End Date Diya Gifford MD [address] [place] [address] [address] [place], [place] [phone] PCP - General 07/26/19 Dariana Juarez MD [address] [place] [address] [place] [phone] Consulting Clinician Cardiovascular Disease 02/06/22 documented as of this encounter
--- OUTSIDE RECORDS SUMMARY | 2024-04-22 21:59 | XMS_ITS | Encounter Summary ---
Author Organization [facility] Address [address] [place] [address] Care Team Providers Care Engineering Drafter Name Role Phone Diya Gifford MD Primary Care Provide r Dariana Juarez MD Unavailable [phone] Reason for Visit * Reason Comments Neck Pain * Prior Authorization (Routine) - Authorization Not Required Specialty Diagnoses / Procedures [facility] Referred To Contact Pain Medicine Diagnoses Radiculopathy, cervical region cervical epidural C7-T1 Procedures KS NJX DX/THER SBST INTRLMNR CRV/THRC W/IMG GDN PAIN CLINIC PROCEDURE [facility] Clinic 62 [facility] [place] [address] Rubi Ruffin MD 62 [facility] [address] [place] [phone] Referral ID Status Reason Start Date Expiration Date Visits Requested Visits Authorized [id number] Authorization Not Required 1 1 Encounter Details Date Type Department Care Team (Latest Contact Info) Description 01/15/2024 11:15 EDT Office Visit [facility] Interventional Pain 62 [facility] [place] [address] Percy Molina MD 62 [facility] [address] [place] [address] Cervical radiculopathy (Primary Dx) Social History [...] 11:15 EDT [facility] [address] [address] Patient Instructions You have had your cervical [...] Allen : 1975 Date of Service: 01/15/24 Loop Puller: Percy Molina MD Interval History: Patient presents [...] Info) Description 04/26/2024 9:15 EDT Office Visit [facility] Interventional Pain [address] [place], [place] [phone] Percy Molina MD 62 [facility] [address] [place] [address] 01/25/2026 12:00 EDT Office Visit [facility] Cancer Center Hematology & Oncology - [facility] [address] [place], [place] [address] Jorge Lim MD 111 [facility], [address] 2 [place] [address] documented as of this encounter Visit Diagnoses [...] mL documented in this encounter Care Teams Engineering Drafter Relationship Specialty Start Date End Date Diya Gifford MD [address] [place] [address] PCP - General 07/26/19 Dariana Juarez MD [address] [place] [address]- [address] [place] [phone] Consulting Clinician Cardiovascular Disease 02/06/22 documented as of this encounter
--- OUTSIDE RECORDS SUMMARY | 2024-04-22 21:59 | XMS_ITS | Encounter Summary ---
Author Organization [facility] Address [address] [place] [address] Care Team Providers Care Warehouse Worker 2Nd Shift Name Role Phone Diya Gifford MD Primary Care Provide r Dariana Juarez MD Unavailable [phone] Reason for Visit * Reason Onset Date Comments Follow-up 08/12/2023 Reveal loop deandre rder Encounter Details Date Type Department Care Team (Late st Contact Info) Description 08/12/2023 Telephone [facility] [address] [place] [address] RN Follow-up (Reveal [...] Miscellaneous Notes * Telephone Encounter - Carmen Wya RN - 09/09/2023 1544 EDT No PA [...] Reveal loop recorder implanted 08/18 has reached GRADE SETTER 04/20. No information received since 05/21. ? Is it appropriate to arrange scheduling for explant next available? To Dano Victoria and Dr. Juarez documented in this encounter Plan of Treatment Upcoming Encounters Date Type Department Care Team (Late st Contact Info) Description 04/26/2024 9:15 EDT Office Visit [facility] Interventional Pain [address] [place] [address] Percy Molina MD [address] [place] [address] [address] [place] [address] 01/25/2026 12:00 EDT Office Visit [facility] Cancer Center Hematology & Oncology - [address] [place], [place] [address] Jorge Lim MD 111 [facility], [address] 2 [place] [phone] documented as of this encounter Visit Diagnoses Not on filedocumented in this encounter Care Teams Warehouse Worker 2Nd Shift Relationship Specialty Start Date End Date Diya Gifford MD [address] [place] [address] [address] [place] [address] PCP - General 07/26/19 Dariana Juarez MD [address] [place] [address] [address] [place] [phone] Consulting Clinician Cardiovascular Disease 02/06/22 documented as of this encounter
--- OUTSIDE RECORDS SUMMARY | 2024-04-22 21:59 | XMS_ITS | Encounter Summary ---
Author Organization [facility] Address [address] [place] [address] Care Team Providers Care Take Away Worker Name Role Phone Diya Gifford MD Primary Care Provide r Dariana Juarez MD Unavailable [phone] Encounter Details Date Type Department Care Team (Latest Contact Info) Description 01/15/2024 11:15 EDT - 01/15/2024 23:59 EDT Hospital Encounter [facility] Pain Clinic Xray [address] [place] [address] Discharge Disposition: Home or Self [...] Info) Description 04/26/2024 9:15 EDT Office Visit [facility] Interventional Pain [address] [place], [place] [phone] Percy Molina MD 62 [facility] [address] [place] [address] 01/25/2026 12:00 EDT Office Visit [facility] Cancer Center Hematology & Oncology - [facility] [address] [place], [place] [phone] Jorge Lim MD 111 [facility], [facility], Level [address] [place] [phone] documented as of this encounter Procedures Procedure [...] in this encounter Care Teams Take Away Worker Relationship Specialty Start Date End Date Diya Gifford MD [address] [place] [address] [address] [place], [place] [address] PCP - General 07/26/19 Dariana Juarez MD [address] [place] [address]A [address] [place] [address] Consulting Clinician Cardiovascular Disease 02/06/22 documented as of this encounter
--- OUTSIDE RECORDS SUMMARY | 2024-04-22 21:59 | XMS_ITS | Encounter Summary ---
Author Organization [facility] Address [address] [place] [address] Care Team Providers Care Joint Cutter Machine Name Role Phone Diya Gifford MD Primary Care Provide r Dariana Juarez MD Unavailable [phone] Reason for Visit * Reason Onset Date Comments Appointment Related 11/03/2023 Encounter Details Date Type Department Care Team (Late st Contact Info) Description 11/03/2023 Telephone Health system - [facility] Interventional Pain [address] [facility] [place] [address] Rubi Ruffin MD [address] [place] [address] [address] [place] [address] Appointment Related Social History Tobacco [...] Telephone Encounter - Conchis Simmons - 11/03/2023 9023 EDT Left message on VM letting patient know due to provider schedule change the appointment on 03/07 has been cancelled. A new appointment has been made for 03/08 @ 10am. Left call back number for patient to confirm appointment documented in this encounter Plan of Treatment Upcoming Encounters Date Type Department Care Team (Late st Contact Info) Description 04/26/2024 9:15 EDT Office Visit [facility] Interventional Pain [address] [facility] [place] [address] Percy Molina MD 62 [facility] [address] [place] [address] 01/25/2026 12:00 EDT Office Visit [facility] Cancer Center Hematology & Oncology - [address] [phone] Jorge Lim MD 111 [facility], Level 2 [place] [address] documented as of this encounter Visit Diagnoses Not on filedocumented in this encounter Care Teams Joint Cutter Machine Relationship Specialty Start Date End Date Diya Gifford MD [address] [place] [address] [address] [place] [address] PCP - General 07/26/19 Dariana Juarez MD [address] [place] [address]- [address] [place] [address] Consulting Clinician Cardiovascular Disease 02/06/22 documented as of this encounter
--- OUTSIDE RECORDS SUMMARY | 2024-04-22 21:59 | XMS_ITS | Encounter Summary ---
Author Organization [facility] Address [address] [place] [address] Care Team Providers Care Help Desk Coordinator Name Role Phone Diya Gifford MD Primary Care Provide r Dariana Juarez MD Unavailable [phone] Reason for Visit * Reason Onset Date Comments Follow-up 08/04/2023 Encounter Details Date Type Department Care Team (Late st Contact Info) Description 08/04/2023 Telephone [facility] Cancer Center Hematology & Oncology - [facility] [address] [place] [address] Missy Harris RN [address] [place] [address] Follow-up Social History Tobacco Use Types Packs/Day [...] Info) Description 04/26/2024 9:15 EDT Office Visit [facility] Interventional Pain 62 [facility] [place], [place] [phone] Percy Molina MD [address] [facility] [address] [place] [address] 01/25/2026 12:00 EDT Office Visit [facility] Center Hematology & Oncology - [facility] [address] [place], [place] [phone] Jorge Lim MD 111 [facility], [address] [place] [phone] documented as of this encounter Visit Diagnoses Not on filedocumented in this encounter Care Teams Help Desk Coordinator Relationship Specialty Start Date End Date Diya Gifford MD [address] [place] [address] [address] [place], [place] [address] PCP - General 07/26/19 Dariana Juarez MD [address] [place] [address] [address] [place] [phone] Consulting Clinician Cardiovascular Disease 02/06/22 documented as of this encounter
--- OUTSIDE RECORDS SUMMARY | 2024-04-22 21:59 | XMS_ITS | Encounter Summary ---
Author Organization [facility] Address [address] [place] [address] Care Team Providers Care Chemical Treatment Operator Name Role Phone Diya Gifford MD Primary Care Provide r Dariana Juarez MD Unavailable [phone] Reason for Visit * Reason Comments Follow-up Encounter Details Date Type Department Care Team (Late st Contact Info) Description 06/30/2023 14:10 EST Telemedicine [facility] Cancer Center Hematology & Oncology - [facility] [address] [place], [place] [phone] Jorge Lim MD [address] [place] [address], [address] [place] [address] Bleeding disorder (HCC-CMS) (Primary Dx) [...] Home Patient location state: Visit Location State: [place] The location of the provider: Office Provider location state: Visit Location State: [place] The following people and their roles were present for today's visit: Appointment Provider: Jorge Lim MD Chris Elaine Holmes, MD Chris Elaine Holmes, MD Chris Elaine Holmes, MD documented in this encounter Plan of Treatment Upcoming Encounters Date Type Department Care Team (Late st Contact Info) Description 04/26/2024 9:15 EDT Office Visit [facility] Interventional Pain 62 [facility] [place], [place] [phone] Percy Molina MD 62 [facility] [address] [place] [address] 01/25/2026 12:00 EDT Office Visit [facility] Hematology & Oncology - [address] [phone] Jorge Lim MD [address] [place] [address], [address] [place] [phone] documented as of this encounter Visit Diagnoses Diagnosis Bleeding disorder (HCC-CMS)- Primary Unspecified hemorrhagic conditions documented in this encounter Care Teams Chemical Treatment Operator Relationship Specialty Start Date End Date Diya Gifford MD [address] [place] [address] [address] [place], [place] [address] PCP - General 07/26/19 Dariana Juarez MD [address] [place] [address] [address] [place] [address] Consulting Clinician Cardiovascular Disease 02/06/22 documented as of this encounter
--- OUTSIDE RECORDS SUMMARY | 2024-04-22 21:59 | XMS_ITS | Encounter Summary ---
Author Organization [facility] Address [address] [place] [address] Care Team Providers Care Nurse Practitioner Hospitalist Name Role Phone Diya Gifford MD Primary Care Provide r Dariana Juarez MD Unavailable [phone] Reason for Visit * Reason Onset Date Comments Follow-up 04/22/2023 Carelink Transmi tter Encounter Details Date Type Department Care Team (Late st Contact Info) Description 04/22/2023 Telephone [facility] Cardiology Clinic [address] [place] [address] RN Follow-up (Carelink [...] Encounter - Carmen Way, RN - 04/22/2023 6957 EDT Carelink remote transmitter is disconnected no [...] Info) Description 04/26/2024 9:15 EDT Office Visit [facility] Interventional Pain 62 [facility] [place] [address] Percy Molina MD 62 [facility] [address] [place] [address] 01/25/2026 12:00 EDT Office Visit [facility] Cancer Center Hematology & Oncology - [address] [phone] Jorge Lim MD 111 [facility], [address] [place] [address] documented as of this encounter Visit Diagnoses Not on filedocumented in this encounter Care Teams Nurse Practitioner Hospitalist Relationship Specialty Start Date End Date Diya Gifford MD [address] [place] [address] [address] [place], [place] [phone] PCP - General 07/26/19 Dariana Juarez MD [address] [place] [address]-A [facility] 2-1 [place] [phone] Consulting Clinician Cardiovascular Disease 02/06/22 documented as of this encounter
--- OUTSIDE RECORDS SUMMARY | 2024-04-22 21:59 | XMS_ITS | Encounter Summary ---
Author Organization [facility] Address [address] [place] [address] Care Team Providers Care Yarn Texture Machine Operator Name Role Phone Diya Gifford MD Primary Care Provide r Dariana Juarez MD Unavailable [phone] Reason for Referral * Prior Authorization (Routine/Next Available) - Authorization Not Required Specialty Diagnoses / Procedures [facility] Referred To Contact Diagnoses Bleeding disorder ([facility]) Procedures CHG FIBRINOLYSINS/COAGULOPATH Y SCREEN INTERP&REPOR CHG ELECTRON MICROSCOPY DIAGNOSTIC Jorge Lim MD 111 [facility] 2 [place] [address] [facility] Ep2 Hem/Onc [address] [place] [address] Referral ID Status Reason Start Date Expiration Date Visits Requested Visits Authorized [id number] Authorization Not Required Specialty Services Required 06/30/2023 1 1 Question Answer Reason for Request: Platelet Transmission Electron Microscopy Study/Moser/Test ID:[email or web address]/CPT codes: 77211, 30577 Comments The purpose of this request is to inform precertification staff that the requested service needs to be reviewed for prior-authorization. This is not a genetic test. [email or web address] * Prior Authorization (Routine/Next Available) - Authorization Not Required Specialty Diagnoses / Procedures Referred By Contac t Referred To Contact Diagnoses Bleeding disorder ([facility]) Procedures CHG EUGLOBULIN LYSIS CHG FIBRIN DGRADJ SPLT PRODUXS AGGLUJ SLIDE SEMIQUAN CHG FIBRIN DGRADJ PRODUCTS D-DIMER QUANTITATIVE CHG FBRNLYC FACTORS&INHIBITORS ALPHA-2 ANTIPLASMIN CHG FBRNLYC FACTORS&INHIBITORS PLSMNG ACTIVATOR CHG FBRNLYC FACTORS&INHIBITRS PLSMNG XCPT AGIC Jorge Kinney MD 111 [facility], [facility], [facility] 2 [place] [address] [facility] Ep2 Hem/Onc [address] [place] [address] Referral ID Status Reason Start Date Expiration Date Visits Requested Visits Authorized [id number] Authorization Not Required Specialty Services Required 06/30/2023 1 1 Question Answer Reason for Request: Fibrinolysis Evaluation/Moser/Test ID: [id number]/[id number] codes: 99659, 63458, 19556, 39752, 24289 (x2), 26090 Comments The purpose of this request is to inform precertification staff that the requested service needs to be reviewed for prior-authorization. Not a genetic test [email or web address] Encounter Details Date Type Department Care Team (Late st Contact Info) Description 06/30/2023 Orders Only [facility] Cancer Center Hematology & Oncology - [address] [address] Missy Harris, TATUM [address] [place] [address] Bleeding disorder ([facility]) (Primary Dx) Social History Tobacco Use Types [...] Info) Description 04/26/2024 9:15 EDT Office Visit [facility] Interventional Pain 62 [facility] [place] [address] Percy Molina MD 62 [facility] [address] [place] [address] 01/25/2026 12:00 EDT Office Visit [facility] Cancer Center Hematology & Oncology - [address] [address] Jorge Lim MD [address] [place] [address], Level 2 [place] [address] Scheduled Referrals Name Type Priority [...] * MISCELLANEOUS TEST, ABNER (08/10/2023 9:14 EST) Miscellaneous Test, [place] SEE NOTE 08/12/2023 11:18 EST [facility] Comment: Test ?Result ?Flag ??Unit ??RefValue [...] and its performance characteristics ?determined by [facility] in a manner consistent with CLIA ?requirements. This test has not been cleared or approved by ?the U.S. Food and Drug Administration. ?Test Performed by: ?[facility] ?[address] [place] [address] ?Cotton Candy Maker: Liban Aly M.D. Ph.D.; CLIA# [id number] Blood VENOUS BLOOD / Unknown Venipuncture / Unknown 08/10/2023 9:14 EST 08/10/2023 9:24 EST Jorge Lim MD CHEMISTRY & BLOOD GAS ORDERABLES [facility] [address] [place] [address] documented in this encounter Visit Diagnoses Diagnosis Bleeding disorder (HCC-CMS)- Primary Unspecified hemorrhagic conditions documented in this encounter Care Teams Yarn Texture Machine Operator Relationship Specialty Start Date End Date Diya Gifford MD [address] [place] [address] PCP - General 07/26/19 Dariana Juarez MD [address] [place] [address] [address] [place] [address] Consulting Clinician Cardiovascular Disease 02/06/22 documented as of this encounter
--- OUTSIDE RECORDS SUMMARY | 2024-04-22 21:59 | XMS_ITS | Encounter Summary ---
Author Organization [facility] Address [address] [place] [address] Care Team Providers Care Oracle Ebs Architect Name Role Phone Diya Gifford MD Primary Care Provide r Dariana Juarez MD Unavailable [phone] Reason for Visit * Reason Comments Neck Pain Cervical epidural C7 T1 * Prior Authorization (Routine) - Authorization Not Required Specialty Diagnoses / Procedures [facility] Referred To Contact Pain Medicine Diagnoses Radiculopathy, site unspecified Radiculopathy, cervical region cervical epidural C7-T1 /pa pending Procedures NV NJX DX/THER SBST INTRLMNR CRV/THRC W/IMG GDN PAIN CLINIC PROCEDURE [facility] Clinic 62 [facility] [place] [address] Rubi Ruffin MD 62 [facility] [address] [place] [address] Referral ID Status Reason Start Date Expiration Date Visits Requested Visits Authorized [id number] Authorization Not Required 1 1 Encounter Details Date Type Department Care Team (Latest Contact Info) Description 10/26/2023 8:45 EDT Office Visit [facility] Interventional Pain [address] [facility] [place] [address] Rubi Ruffin MD 62 [facility] [address] [place] [phone] Cervical radiculopathy (Primary Dx) Social History Tobacco [...] 8:45 EDT [facility] [address] [phone] Patient Instructions You have had your cervical [...] Management Rooming Note Does patient have a Manager Diversity? yes Is patient NPO? (Solids since midnight [...] Allen : 1975 Date of Service: 10/26/23 Regional Liaison: Rubi Ruffin MD Interval History: Patient presents [...] reviewed with the patient, provider, nurse/MA, and radiology receptionist in the room prior to local anesthetic [...] Info) Description 04/26/2024 9:15 EDT Office Visit [facility] Interventional Pain 62 [facility] [place] [address] Percy Molina MD 62 [facility] [address] [place] [address] 01/25/2026 12:00 EDT Office Visit [facility] Cancer Center Hematology & Oncology - [facility] [address] [place], [place] [phone] Jorge Lim MD 111 [facility], Level 2 [place] [phone] documented as of this encounter Visit Diagnoses Diagnosis Cervical radiculopathy- Primary Brachial neuritis or radiculitis nos documented in this encounter Administered Medications Inactive Administered Medications - up to 3 most recent administrations Medication Order MAR Action Action Date Dose Rate Site Iohexol (OMNIPAQUE 180) injection 1 mL 1 mL, neural-axial, NOW X1, 1 dose, On Thu10/26/23 [...] 10/10/2023 added in this encounter Care Teams Oracle Ebs Architect Relationship Specialty Start Date End Date Diya Gifford MD [address] [place] [address] [address] [place] [address] PCP - General 07/26/19 Dariana Juarez MD [address] [place] [address] [address] [place] [phone] Consulting Clinician Cardiovascular Disease 02/06/22 documented as of this encounter
--- OUTSIDE RECORDS SUMMARY | 2024-04-22 22:00 | XMS_ITS | Encounter Summary ---
Author Organization [facility] Address [address] [place] [address] Care Team Providers Care Site Superintendent Name Role Phone Diya Gifford MD Primary Care Provide r Dariana Juarez MD Unavailable [phone] Reason for Visit * Reason Comments Hypertension Encounter Details Date Type Department Care Team (Late st Contact Info) Description 02/07/2022 10:00 EDT Office Visit [facility] Cardiology Clinic [address] [place] [address] Dariana Juarez MD 111 [facility] 1 [place] [address] Syncope and collapse (Primary Dx) [...] Dariana Juarez MD - 02/07/2022 1000 EDT [facility] Cardiology Office Visit Subjective: Chief Complaint(s): Hypertension [...] she lost strength in her entire body. [facility] is set to have a neurology appointment on . Cardiac History She notes these episodes started in July 2021 she has had 4 total. The original episode occurred at around 2 AM when she got up in the middle of the night-she syncopized at that time without prodrome. Went to the emergency room at [facility] was admitted for monitoring. Echocardiogram at [...] [facility] Interventional Pain [address] [place] [address] Percy Molina MD [address] [facility] [address] [place] [address] 01/25/2026 12:00 EDT Office Visit [facility] Cancer Center Hematology & Oncology - [facility] [address] [place], [place] [phone] Jorge Lim MD 111 [facility], [facility], Level 2 [place] [phone] documented as of this encounter Visit Diagnoses Diagnosis Syncope and collapse- Primary documented in this encounter Historical Medications * This list may reflect changes made after this encounter. Medication Sig Dispensed Refills Start Date End Date cyanocobalamin (VITAMIN B-12) 500 mcg tablet Take 1 Tablet by mouth daily. added in this encounter Care Teams Site Superintendent Relationship Specialty Start Date End Date Diya Gifford MD [address] [place] [address] [address] [place] [address] PCP - General 07/26/19 Dariana Juarez MD [address] [place] [address] [address] [place] [phone] Consulting Clinician Cardiovascular Disease 02/06/22 documented as of this encounter
--- OUTSIDE RECORDS SUMMARY | 2024-04-22 22:00 | XMS_ITS | Encounter Summary ---
Author Organization [facility] Address [address] [place] [address] Care Team Providers Care Account Review Specialist Name Role Phone Diya Gifford MD Primary Care Provide r Dariana Juarez MD Unavailable [phone] Reason for Visit * Reason Comments Pacemaker/Device Check Medtronic Encounter Details Date Type Department Care Team (Late st Contact Info) Description 07/01/2022 14:00 EST Office Visit [facility] Cardiology Clinic [address] [place] [address] Dano Victoria, CLOSET ORGANIZER 130 [facility] [address] [address] Syncope, unspecified syncope type (Primary [...] ofher Medtronic loop recorder inserted for syncope. [facility] Cardiology ILR Visit Reconciling Clerk: Medtronic Device Type: Implantable loop recorder Service: [...] Inder Edouard - 07/01/2022 1400 EST 07/03/2022- [facility] to schedule 6 month device check * Inder Edouard - 07/01/2022 1400 EST Scheduled 01/06/2023 @1430 documented in this encounter Plan of Treatment Upcoming Encounters Date Type Department Care Team (Late st Contact Info) Description 04/26/2024 9:15 EDT Office Visit [facility] Interventional Pain [address] [place], [place] [phone] Percy Molina MD 62 [facility] [address] [place] [address] 01/25/2026 12:00 EDT Office Visit [facility] Cancer Center Hematology & Oncology - [facility] [address] [place], [place] [phone] Jorge Lim MD 111 [facility], Level 2 [place] [phone] documented as of this encounter Visit Diagnoses Diagnosis Syncope, unspecified syncope type- Primary documented in this encounter Care Teams Account Review Specialist Relationship Specialty Start Date End Date Diya Gifford MD 4 [facility] [address] [place], [place] [address] PCP - General 07/26/19 Dariana Juarez MD [address] [place] [address] [address] [place] [phone] Consulting Clinician Cardiovascular Disease 02/06/22 documented as of this encounter
--- OUTSIDE RECORDS SUMMARY | 2024-04-22 22:00 | XMS_ITS | Encounter Summary ---
Author Organization [facility] Address [address] [place] [address] Care Team Providers Care Cw Operator Name Role Phone Diya Gifford MD Primary Care Provide r Dariana Juarez MD Unavailable [phone] Reason for Referral * Office Procedure (Routine/Next Available) - Authorization Not Required Specialty Diagnoses / Procedures Referred By Ar salinas Referred To Contact Neurology Diagnoses Syncope, unspecified syncope type Procedures EEG Lobito Hogue MD [address] [address] [facility]eg [address] [place] [address] Referral ID Status Reason Start Date Expiration Date Visits Requested Visits Authorized [id number] Authorization Not Required 02/13/2022 1 1 Reason for Visit * Reason Comments New Patient Visit * Consult, Test and Treat (Routine) - Receiving Office to Obtain Authorization Specialty Diagnoses / Procedures Referred By Ar salinas Referred To Contact Neurology Diagnoses Other abnormal findings on diagnostic imaging of central nervous system Syncope and collapse Procedures CONSULT NEUROLOGY Diya Gifford MD [address] [place] [address] [address] [place] [address] [facility] [address] [place] [address] Referral ID Status Reason Start Date Expiration Date Visits Requested Visits Authorized [id number] Receiving Office to Obtain Authorization 1 1 Encounter Details Date Type Department Care Team (Late st Contact Info) Description 02/13/2022 16:00 EDT Office Visit [facility] Neurology Clinic [address] [place] [address] Loibto Hogue MD [address] [facility] [address] [place] [address] Syncope, unspecified syncope [...] Lobito Hogue MD - 02/13/2022 1600 EDT [facility] Neurology Clinic PATIENT NAME: Marilin Allen PATIENT : 1975 PCP: Diya Gifford DATE [...] called 911, EMT's transported the patient to [facility]. The patient got an MRI brain revealing [...] touch. Cerebellar testing revealed no dysmetria on [id number]. Tremor was absent. ASSESSMENT: Syncope PLAN: 1) I believe the patient may benefit from longer cardiac monitoring, but I will leave the decision to the bell neck hammerer who has more knowledge to make that decision, because I am not a bell neck hammerer. 2) Routine EEG. If the routine EEG [...] Description 04/26/2024 9:[address] [facility] Interventional Pain 62 [facility] [place] [address] Percy Molina MD 62 [facility] [address] [place] [address] 01/25/2026 12:00 EDT Office Visit [facility] Cancer Center Hematology & Oncology - [facility] [address] [place], [place] [phone] Jorge Lim MD 111 [facility], [facility], Level 2 [place] [address] documented as of this encounter Results * EEG (03/07/2022 7:00 EDT) Narrative [facility] NEUROLOGY - 03/07/2022 7:00 EDT Mark Donaldson MD ? 03/11/2022 13:48 [facility] Neurophysiology lab Electroencephalogram report Patient: Marilin Allen : 1975 ?? Date of service: 03/07/22 Referring Physician: Lobito Hogue MD ? Study Number: Clinical Indication: A 47-year-old woman with episodes [...] Donaldson MD Lobito Hogue MD NEUROLOGY ORDERABLES [facility] NEUROLOGY documented in this encounter Visit Diagnoses Diagnosis Syncope, unspecified syncope type- Primary Syncope, unspecified syncope type documented in this encounter Care Teams Cw Operator Relationship Specialty Start Date End Date Diya Gifford MD [address] [place] [address] PCP - General 07/26/19 Dariana Juarez MD [address] [place] [address]A [address] [place] [phone] Consulting Clinician Cardiovascular Disease 02/06/22 documented as of this encounter
--- OUTSIDE RECORDS SUMMARY | 2024-04-22 22:00 | XMS_ITS | Encounter Summary ---
Author Organization [facility] Address [address] [place] [address] Care Team Providers Care Star Route Mail Driver Name Role Phone Diya Gifford MD Primary Care Provide r Reason for Referral * Cardiology (Routine/Next Available) - Specialty Report Received Specialty Diagnoses / Procedures Referred By [facility] Referred To Contact Nuclear Medicine Diagnoses Syncope, unspecified syncope type Procedures NM CARD SPECT NUCLEAR STRESS Dariana Juarez MD [address] [place] [phone] [facility] Referral ID Status Reason Start Date Expiration Date V isits Requested Visits Authorized [id number] Specialty Report Received 12/03/2021 1 1 Reason for Visit * Cardiology (Routine/Next Available) - Specialty Report Received Specialty Diagnoses / Procedures Referred By [facility] Referred To Contact Nuclear Medicine Diagnoses Syncope, unspecified syncope type Procedures NM CARD SPECT NUCLEAR STRESS Dariana Juarez MD [address] [place] [phone] [facility] Referral ID Status Reason Start Date Expiration Date V isits Requested Visits Authorized [id number] Specialty Report Received 12/03/2021 1 1 Encounter Details Date Type Department Care Team (Latest Contact Info) Description 12/25/2021 7:12 EDT - 12/25/2021 7:13 EDT Hospital Encounter [facility] Nuclear Medicine [address] [place] [address] Syncope, unspecified syncope type Discharge Disposition: Home [...] Info) Description 04/26/2024 9:15 EDT Office Visit [facility] Interventional Pain [address] [place] [address] Percy Molina MD [address] [place] [address] 01/25/2026 12:00 EDT Office Visit [facility] Cancer Center Hematology & Oncology - [facility] [address] [place] [address] Jorge Lim MD 111 [facility], [facility], Level 2 [place] [address] documented as of this encounter [...] Has happened 4 times. Was admitted to [facility] after first episode- work up negative, echo normal, EKG negative. Also reports some increased weakness and SOB over the past couple months. Pt currently wearing [employer] monitor- states she was celled Thursday at [...] millicuries documented in this encounter Care Teams Star Route Mail Driver Relationship Specialty Start Date End Date Diya Gifford MD [address] [place] [address] [address] [place] [address] PCP - General 07/26/19 documented as of this encounter
--- OUTSIDE RECORDS SUMMARY | 2024-04-22 22:00 | XMS_ITS | Encounter Summary ---
Author Organization [facility] Address [address] [place] [address] Care Team Providers Care Ink Jet Operator Name Role Phone Diya Gifford MD Primary Care Provide r Dariana Juarez MD Unavailable [phone] Reason for Referral * (Routine/Next Available) - Authorization Not Required Specialty Diagnoses / Procedures Referred By Contac t Referred To Contact Diagnoses Encounter for loop recorder check Procedures CARDIAC IMPLANT CHECK - REMOTE MONITOR Dano Victoria NP [address] [facility] [address] [place] [address] [facility] Referral ID Status Reason Start Date Expiration Date Visits Requested Visits Authorized [id number] Authorization Not Required 2 18 18 * (Routine/Next Available) - Authorization Not Required Specialty Diagnoses / Procedures Referred By Contac t Referred To Contact Diagnoses Encounter for loop recorder check Procedures CARDIAC IMPLANT CHECK - IN CLINIC Dano Victoria NP [address] [facility] [address] [place] [address] [facility] Referral ID Status Reason Start Date Expiration Date Visits Requested Visits Authorized [id number] Authorization Not Required 2 18 18 Encounter Details Date Type Department Care Team (Late st Contact Info) Description 05/19/2022 Orders Only [facility] Cardiology Clinic [address] [place] [phone] Jeet Rodriguez RN Encounter for loop recorder check (Primary [...] Info) Description 04/26/2024 9:15 EDT Office Visit [facility] Interventional Pain 62 [place] [address] Percy Molina MD 62 [facility] [address] [place] [address] 01/25/2026 12:00 EDT Office Visit [email or web address] Cancer Center Hematology & Oncology - [address] [address] Jorge Lim MD [address] [place] [address], [address] 2 [place] [address] Scheduled Orders Name Type Priority Associated Diagnoses [...] device documented in this encounter Care Teams Ink Jet Operator Relationship Specialty Start Date End Date Diya Gifford MD [address] [place] [phone] PCP - General 07/26/19 Dariana Juarez MD [address] [place] [address]-A [address] [place] [address] Consulting Clinician Cardiovascular Disease 02/06/22 documented as of this encounter
--- OUTSIDE RECORDS SUMMARY | 2024-04-22 22:00 | XMS_ITS | Encounter Summary ---
Author Organization [facility] Address [address] [place] [address] Care Team Providers Care Structural Engineering Project Manager Name Role Phone Diya Gifford MD Primary Care Provide r Encounter Details Date Type Department Care Team (Late st Contact Info) Description 12/03/2021 Orders Only [facility] [place] [address] [place] [address] Campbell Mccallum Social History Tobacco Use Types [...] Info) Description 04/26/2024 9:15 EDT Office Visit [facility] Interventional Pain [address] [place] [address] Percy Molina MD 62 [facility] [address] [place] [address] 01/25/2026 12:00 EDT Office Visit [facility] Hematology & Oncology - [facility] [address] [place], [place] [phone] Jorge Lim MD 111 [facility], Level 2 [place] [phone] documented as of this encounter Visit Diagnoses Not on filedocumented in this encounter Care Teams Structural Engineering Project Manager Relationship Specialty Start Date End Date Diya Gifford MD [address] [place] [address] [address] [place], [place] [address] PCP - General 07/26/19 documented as of this encounter
--- OUTSIDE RECORDS SUMMARY | 2024-04-22 22:00 | XMS_ITS | Encounter Summary ---
Author Organization [facility] Address [address] [place] [address] Care Team Providers Care Bridal Service Sales And Management Name Role Phone Diya Gifford MD Primary Care Provide r Reason for Referral * Cardiology (Routine/Next Available) - Authorization Not Required Specialty Diagnoses / Procedures [facility] Referred To Contact Diagnoses Syncope, unspecified syncope type Procedures CARDIAC EVENT MONITOR Dariana Juarez MD [address] [place] [phone] [facility] [place] Referral ID Status Reason Start Date Expiration Date Visits Requested Visits Authorized [id number] Authorization Not Required 12/03/2021 1 1 * Cardiology (Routine/Next Available) - Specialty Report Received Specialty Diagnoses / Procedures [facility] Referred To Contact Nuclear Medicine Diagnoses Syncope, unspecified syncope type Procedures NM CARD SPECT NUCLEAR STRESS Dariana Juarez MD [address] [place] [phone] [facility] [place] Referral ID Status Reason Start Date Expiration Date V isits Requested Visits Authorized [id number] Specialty Report Received 12/03/2021 1 1 Reason for Visit * Reason Comments Follow-up * Cardiology (Routine) - Authorization Not Required Specialty Diagnoses / Procedures Referred By Contac t Referred To Contact Cardiology Diagnoses Syncope Family history of coronary artery disease Diya Gifford MD [address] [place] [address] [address] [place] [address] [facility] [address] [place] [address] Referral ID Status Reason Start Date Expiration Date Visits Requested Visits Authorized [id number] Authorization Not Required 1 1 Encounter Details Date Type Department Care Team (Late st Contact Info) Description 12/03/2021 8:30 EDT Office Visit [facility] [place] Cardiology Clinic [address] [place] [phone] Dariana Juarez MD [address] [place] [address] 1 [place] [address] Syncope, unspecified syncope type (Primary [...] Dariana Juarez MD - 12/03/2021 0830 EDT [facility] [place] Cardiology Office Visit Subjective: [...] prodrome. Went to the emergency room at [facility] was admitted for monitoring. Echocardiogram at [...] episode was last week at her son's [employer] competition. She was getting up from a [...] her to abstain from driving. TTE from [facility] was normal. - [employer] cardiac monitoring - [...] after appropriate skin prep per guidelines from senior scrum master. Pt demonstrated pushing event button to activate after application. Pt verbalizes understanding of documenting events after pushing the event button. Reviewed troubleshooting the device as well as how to contact the senior scrum master help line with questions/concerns. Reviewed charging and use of phone/device as well as how to change out the monitor on the monitor strips. Recommended reading through the accompanying manual as well. Pt verbalizes understanding of these items as well as removal and how to mail it back to the senior scrum master. documented in this encounter Plan of Treatment Upcoming Encounters Date Type Department Care Team (Late st Contact Info) Description 04/26/2024 9:15 EDT Office Visit [facility] Interventional Pain [address] [place] [address] Percy Molina MD 62 [facility] [address] [place] [address] 01/25/2026 12:00 EDT Office Visit [facility] Hematology & Oncology - [facility] [address] [place], [place] [phone] Jorge Lim MD 111 [facility], Level 2 [place] [phone] documented as of this encounter Procedures Procedure [...] Has happened 4 times. Was admitted to [facility] after first episode- work up negative, echo normal, EKG negative. Also reports some increased weakness and SOB over the past couple months. Pt currently wearing [employer] monitor- states she was celled Thursday at [...] EDT) 12/03/2021 23:5 1 EDT Scan 2 Dock Operations Supervisor PROCEDURE/MINOR ROGELIO GICAL ORDERABLES * CARDIAC EVENT [...] 12-LEAD (12/03/2021 8:34 EDT) 12/03/2021 8:34 EDT [facility] - 12/03/2021 23:45 EDT ? CVC ? Test Date: ?2021-12-03 Pat Name: ? THONG HESTER ? Department: ? Room: ? Gender: ? Female ? Tower Supervisor: ?? [place] : ?1975 ? Requested By: ZITA West Order Number: [id number] ? Son VALLE: ?? JHOAN FRANKLIN MD ? Measurements Intervals ?[place] ? Rate: ? 80 ? P: ?44 MN: ? 148 ?QRS: ?28 QRSD: ? 76 [...] Name: THONG HESTER Department: Room: Gender: Female Tower Supervisor: [place] : 1975 Requested By: ZITA West Order Number: [id number] Son MD: JHOAN FRANKLIN MD Measurements Intervals [place] Rate: 80 P: 44 MN: 148 QRS: 28 QRSD: 76 T: 33 QT: 394 QTc: 454 Interpretive Statements Normal sinus rhythm Compared to ECG 09/23/2021 10:39:28 No significant changes I reviewed the tracing and have either agreed or edited the findings inthis report. Electronically Signed On 12-03-2021 23:45:42 EDT by JHOAN ANAYA. Dariana Juarez MD CARDIAC ECG ORDERABL ES [facility] documented in this encounter Visit Diagnoses Diagnosis [...] documented as of this encounter Care Teams Bridal Service Sales And Management Relationship Specialty Start Date End Date Diya Gifford MD [address] [place] [address] PCP - General 07/26/19 documented as of this encounter
--- OUTSIDE RECORDS SUMMARY | 2024-04-22 22:00 | XMS_ITS | Encounter Summary ---
Author Organization [facility] Address [address] [place] [address] Care Team Providers Care Spring Layer Name Role Phone Diya Gifford MD Primary Care Provide r Dariana Juarez MD Unavailable [phone] Encounter Details Date Type Department Care Team (Late st Contact Info) Description 12/16/2021 Lab Requisition [facility] Pathology & Laboratory Medicine - [facility] [address] [place] [address] Outr Resulting Lab, Provider Social History Tobacco [...] [facility] Inter[facility] Pain [address] [place], [place] [phone] Percy Molina MD [address] [place] [address] 01/25/2026 12:00 EDT Office Visit [facility] Hematology & Oncology - [facility] [address] [place], [place] [phone] Jorge Lim MD 111 [facility], [address] [place] [phone] documented as of this encounter Procedures Procedure Name Priority Date/Time Associated Diagnosis Comments HEPATITIS C AB W REFLEX TO HCV RNA BY PCR Routine 12/16/2021 11:00 EDT documented in this encounter Results * HEPATITIS C AB W REFLEX TO HCV RNA BY PCR (12/16/2021 11:00 EDT) Hep C Antibody Negative Negative 12/17/2021 10:10 EDT [facility] Blood VENOUS BLOOD / Unknown 12/16/2021 11:00 EDT 12/16/2021 21:15 EDT Provider Outr Resulting Lab CHEMISTRY & BLOOD GAS ORDERABLES [facility] [address] [place] [address] documented in this encounter Visit Diagnoses Not on filedocumented in this encounter Care Teams Spring Layer Relationship Specialty Start Date End Date Diya Gifford MD 4 [facility] [address] [place], [place] [phone] PCP - General 07/26/19 Dariana Juarez MD [address] [place] [address] [phone] Consulting Clinician Cardiovascular Disease 02/06/22 documented as of this encounter
--- OUTSIDE RECORDS SUMMARY | 2024-04-22 22:00 | XMS_ITS | Encounter Summary ---
Author Organization [facility] Address [address] [place] [address] Care Team Providers Care Brick Chimney Supervisor Name Role Phone Diya Gifford MD Primary Care Provide r aDriana Juarez MD Unavailable [phone] Reason for Visit * Reason Onset Date Comments Other 06/25/2022 Wound re check Encounter Details Date Type Department Care Team (Late st Contact Info) Description 06/25/2022 Telephone [facility] - [facility] Cardiology Clinic [address] [place] [address] Dano Victoria, VETERINARY POULTRY INSPECTOR 130 [facility] [address] [address] Other (Wound re check) Social [...] Info) Description 04/26/2024 9:15 EDT Office Visit [facility] Interventional Pain [address] [place], [place] [phone] Percy Molina MD 62 [facility] [address] [place] [address] 01/25/2026 12:00 EDT Office Visit [facility] Hematology & Oncology - [facility] [address] [place] [address] Jorge Lim MD 111 [facility], [address] [place] [phone] documented as of this encounter Visit Diagnoses Not on filedocumented in this encounter Care Teams Brick Chimney Supervisor Relationship Specialty Start Date End Date Diya Gifford MD 4 [facility] [address] [place], [place] [address] PCP - General 07/26/19 Dariana Juarez MD [address] [place] [address] [address] [place] [phone] Consulting Clinician Cardiovascular Disease 02/06/22 documented as of this encounter
--- OUTSIDE RECORDS SUMMARY | 2024-04-22 22:00 | XMS_ITS | Encounter Summary ---
Author Organization [facility] Address [address] [place] [address] Care Team Providers Care Head Automatic Sawyer Name Role Phone Diya Gifford MD Primary Care Provide r Dariana Juarez MD Unavailable [phone] Reason for Visit * Auth/Cert Specialty Diagnoses / Procedures Referred By rA salinas Referred To Contact Diagnoses Syncope and collapse Syncope and collapse [R55] Procedures [place] INSERTION SUBQ CARDIAC RHYTHM MONITOR W/PRGRMG INSERTION, ENVIRONMENTAL SCIENTISTS, SUBCUTANEOUS, WITH PROGRAMMING Referral ID Status Reason Start Date Expiration Date Visits Re quested Visits Authorized [id number] 1 1 Encounter Details Date Type Department Care Team (Latest Contact Info) Description 05/08/2022 12:01 EST - 05/08/2022 23:59 [facility] Hospital Encounter Health system Operating Room [address] [place] [address] Seferino Chambers MD [address] [place] [address] [address] [place] [address] Syncope, unspecified syncope type (Primary [...] be sent through Care Everywhere. * Implantable Account Contact Associate: Post-op (Faroese) documented in this encounter Medications [...] Code Departure Means Destination Home or Self Intermediate documented in this encounter Nursing Notes * Luis Boyce, RN - 05/08/2022 0039 EST Pt very overwhelmed with procedure and the continued work-up. Costumed Character Entertainer from [facility] explained how to set up device at [...] Chambers MD - 05/08/2022 1400 EST INSERTION, ENVIRONMENTAL SCIENTISTS, SUBCUTANEOUS, WITH PROGRAMMING Operative Note Date: 05/08/2022 [place] [facility] [place] Name: Marilin Allen, : 1975, Diagnosis Pre-Op Diagnosis Codes: * Syncope and collapse [R55] Post-op Diagnosis * Syncope and collapse [R55] Procedures * INSERTION, ENVIRONMENTAL SCIENTISTS, SUBCUTANEOUS, WITH PROGRAMMING Surgeons * Seferino Chambers [...] No. ICM SYSTEM REVEAL LINQ II - [id number] Implanted [id number] Staff: Motion Picture Equipment Machinist: Corinne Conrad RN Scrub Person: Keshawn Felix [...] covered with Dermabond skin glue. Implanted hardware: [employer]unche[employer]onic Reveal LINQ2 ICM, model number [id number] Sensing sensitivity: 0.035 mV [place] zone: Above 182 bpm, 16 beats. Bradycardia zone: Below 30 bpm, 4 beats. Asystole pauses: 3 seconds. Symptom episodes: 3 x 10 minutes. Summary: Successful implantation of a subcutaneously injected Reveal LINQ2 coach device. CPT 43234 Complications: None; patient tolerated the procedure well. [...] - 05/08/2022 1449 EST Date: 05/08/2022 [place] [facility] [place] Name: Marilin Allen, : 1975, Diagnosis Pre-Op Diagnosis Codes: * Syncope and collapse [R55] Post-op Diagnosis * Syncope and collapse [R55] Procedures * INSERTION, ENVIRONMENTAL SCIENTISTS, SUBCUTANEOUS, WITH PROGRAMMING Surgeons * Seferino Chambers [...] No. ICM SYSTEM REVEAL LINQ II - [id number] Implanted [id number] Staff: Motion Picture Equipment Machinist: Corinne Conrad RN Scrub Person: Keshawn Felix [...] Info) Description 04/26/2024 9:15 EDT Office Visit [facility] Interventional Pain 62 [facility] [place] [address] Percy Molina MD 62 [facility] [address] [place] [address] 01/25/2026 12:00 EDT Office Visit [facility] Hematology & Oncology - [facility] [address] [place], [place] [address] Jorge Lim MD 111 [facility], Level [address] [place] [address] documented as of this encounter Procedures Procedure Name Priority Date/Time Associated Diagnosis Comments ECG REPORT - SCANNED 05/12/2022 13:18 EST INSERTION, ENVIRONMENTAL SCIENTISTS, SUBCUTANEOUS, WITH PROGRAMMING 05/08/2022 13:50 EST Syncope and collapse Special Needs SF documented in this encounter Results * ECG REPORT - SCANNED (05/12/2022 13:18 EST) 05/12/2022 13:1 8 EST Scan 2 Stem Setter PROCEDURE/MINOR ROGELIO GICAL ORDERABLES documented in this [...] 05/08/2022 documented in this encounter Care Teams Head Automatic Sawyer Relationship Specialty Start Date End Date Diya Gifford MD [address] [address] PCP - General 07/26/19 Dariana Juarez MD [address] [place] [address] Consulting Clinician Cardiovascular Disease 02/06/22 documented as of this encounter
--- OUTSIDE RECORDS SUMMARY | 2024-04-22 22:00 | XMS_ITS | Encounter Summary ---
Author Organization [facility] Address [address] [place] [address] Care Team Providers Care Freight Engineer Name Role Phone Diya Gifford MD Primary Care Provide r Reason for Referral * Cardiology (Routine/Next Available) - Authorization Not Required Specialty Diagnoses / Procedures Referred By Contac brad Referred To Contact Diagnoses Syncope and collapse Palpitations Procedures HOLTER MONITOR - 48 Diya Gifford MD 4 [employer] [address] [place] [address] [facility] [place] Referral ID Status Reason Start Date Expiration Date Visits Requested Visits Authorized [id number] Authorization Not Required 11/04/2021 1 1 Encounter Details Date Type Department Care Team (Latest Contact Info) Description 11/04/2021 Transcribe Orders [facility] Admitting [address] [place] [address] Diya Gifford MD 4 [employer] [address] [place] [address] Syncope and collapse (Primary Dx); [...] Description 04/26/2024 9:15 EDT Office Visit [facility] Interventional Pain 62 [facility] [place] [address] Percy Molina MD 62 [facility] [address] [place] [address] 01/25/2026 12:00 EDT Office Visit [facility] Hematology & Oncology - [facility] [address] [place], [place] [address] Jorge Lim MD 111 [facility], Level 2 [place] [address] documented as of this encounter [...] Palpitations documented in this encounter Care Teams Freight Engineer Relationship Specialty Start Date End Date Diya Gifford MD 4 [facility] [address] [place] [address] PCP - General 07/26/19 documented as of this encounter
--- OUTSIDE RECORDS SUMMARY | 2024-04-22 22:00 | XMS_ITS | Encounter Summary ---
Author Organization [facility] Address [address] [place] [address] Care Team Providers Care Associate Store Leader Name Role Phone Diya Gifford MD Primary Care Provide r Reason for Visit * Reason Comments Pain Pain Pain Encounter Details Date Type Department Care Team (Late st Contact Info) Description 10/31/2021 9:30 EDT Office Visit [facility] Orthopedics & Spine Medicine [address] [place] [address] Zina Thompson PA-C [address] [facility] [address] [place] [address] Left cervical radiculopathy (Primary Dx); Cervical pain [...] injection. 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 Plan: 1. C6-7 DARREN at [facility] spine to [place] 2. Follow-up 3 to 6 weeks after injection This document was produced using [employer] dictation. Please excuse any grammatical or verbal errors. documented in this encounter Plan of Treatment Upcoming Encounters Date Type Department Care Team (Late st Contact Info) Description 04/26/2024 9:15 EDT Office Visit [facility] Interventional Pain [address] [place], [place] [phone] Percy Molina MD [address] [facility] [address] [place] [phone] 01/25/2026 12:00 EDT Office Visit [facility] Hematology & Oncology - [facility] [address] [place], [place] [address] Jorge Lim MD 111 [facility], [facility], Level 2 [place] [phone] documented as of this encounter Visit Diagnoses [...] 03/05/2023 added in this encounter Care Teams Associate Store Leader Relationship Specialty Start Date End Date Diya Gifford MD [address] [place] [address] PCP - General 07/26/19 documented as of this encounter
--- OUTSIDE RECORDS SUMMARY | 2024-04-22 22:00 | XMS_ITS | Encounter Summary ---
Author Organization Health system Address [address] [place] [address] Care Team Providers Care Land Management Forester Name Role Phone Diya Gifford MD Primary Care Provide r Dariana Juarez MD Unavailable [phone] Reason for Visit * Reason Onset Date Comments Appointment Related 05/16/2022 Encounter Details Date Type Department Care Team (Late st Contact Info) Description 05/16/2022 Telephone [facility] Cardiology Clinic [address] [place] [address] Dariana Juarez MD 111 [facility] 1 [place] [address] Appointment Related Social History Tobacco [...] Info) Description 04/26/2024 9:15 EDT Office Visit [facility] Interventional Pain 62 [facility] [place] [address] Percy Molina MD 62 [facility] [address] [place] [address] 01/25/2026 12:00 EDT Office Visit [facility] Center Hematology & Oncology - [facility] [address] [place], [place] [phone] Jorge Lim MD 111 [facility], Level [address] [place] [address] documented as of this encounter Visit Diagnoses Not on filedocumented in this encounter Care Teams Land Management Forester Relationship Specialty Start Date End Date Diya Gifford MD [address] [place] [address] [address] [place], [place] [address] PCP - General 07/26/19 Dariana Juarez MD [address] [place] [address]-[facility] [address] [place] [address] Consulting Clinician Cardiovascular Disease 02/06/22 documented as of this encounter
--- OUTSIDE RECORDS SUMMARY | 2024-04-22 22:00 | XMS_ITS | Encounter Summary ---
Author Organization [facility] Address [address] [place] [address] Care Team Providers Care Mobile Product Manager Name Role Phone Diya Gifford MD Primary Care Provide r Reason for Referral * Radiology Services (Routine/Next Available) - Closed Specialty Diagnoses / Procedures Referred By Ar salinas Referred To Contact Radiology Diagnoses Cervical pain Left arm pain Procedures MR CERVICAL SPINE WO CONTRAST Zina Thompson PA-C [address] [address] [facility] Referral ID Status Reason Start Date Expiration Date Visits Re quested Visits Authorized [id number] Closed 10/08/2021 1 1 Reason for Visit * Radiology Services (Routine/Next Available) - Closed Specialty Diagnoses / Procedures Referred By Ar salinas Referred To Contact Radiology Diagnoses Cervical pain Left arm pain Procedures MR CERVICAL SPINE WO CONTRAST Zina Thompson PA-C [address] [address] [facility] Referral ID Status Reason Start Date Expiration Date Visits Re quested Visits Authorized [id number] Closed 10/08/2021 1 1 Encounter Details Date Type Department Care Team (Latest Contact Info) Description 10/22/2021 5:59 EDT - 10/22/2021 23:59 EDT Hospital Encounter [facility] MRI [address] [place] [address] Cervical pain; Left arm pain Discharge Disposition: [...] [facility] Interventional Pain [address] [place] [address] Percy Molina MD [address] [place] [address] 01/25/2026 12:00 EDT Office Visit [facility] Center Hematology & Oncology - [facility] [address] [place], [place] [phone] Jorge Lim MD 111 [facility], [facility], [address] [place] [phone] documented as of this encounter Procedures Procedure [...] the cervical spine wasperformed without contrast. COMPARISON: [facility] 10/08/2021. FINDINGS: There is straightening of the [...] severe left foraminal stenosis. Zina Thompson PA-C [facility] ORDERABLES documented in this encounter Visit Diagnoses Diagnosis Cervical pain Cervicalgia Left arm pain Pain in limb documented in this encounter Care Teams Mobile Product Manager Relationship Specialty Start Date End Date Diya Gifford MD [address] [address] PCP - General 07/26/19 documented as of this encounter
--- OUTSIDE RECORDS SUMMARY | 2024-04-22 22:00 | XMS_ITS | Encounter Summary ---
Author Organization [facility] Address [address] [place] [address] Care Team Providers Care Pipe Processor Name Role Phone Diya Gifford MD Primary Care Provide r Dariana Juarez MD Unavailable [phone] Reason for Visit * Reason Comments Other Wound check Encounter Details Date Type Department Care Team (Late st Contact Info) Description 06/16/2022 11:[address] [facility] - [facility] Cardiology Clinic [address] [place] [address] Nurse, [facility] Syncope, unspecified syncope type (Primary [...] Note - Dinora Way RN - 06/16/2022 1118 ESTAddended by: DINORA WAY on: 06/16/2022 11:42 Modules accepted: Level of Service documented in this encounter Plan of Treatment Upcoming Encounters Date Type Department Care Team (Late st Contact Info) Description 04/26/2024 9:15 EDT Office Visit [facility] Interventional Pain [address] [place] [address] Percy Molina MD [address] [facility] [address] [place] [address] 01/25/2026 12:00 EDT Office Visit [email or web address] Hematology & Oncology - Main [address] [phone] Jorge Lim MD 111 [facility], [facility], [facility] 2 [place] [phone] documented as of this encounter Visit Diagnoses Diagnosis Syncope, unspecified syncope type- Primary documented in this encounter Care Teams Pipe Processor Relationship Specialty Start Date End Date Diya Gifford MD [address] [place] [id number] PCP - General 07/26/19 Dariana Juarez MD [address] [place] [address] [address] [place] [phone] Consulting Clinician Cardiovascular Disease 02/06/22 documented as of this encounter
--- OUTSIDE RECORDS SUMMARY | 2024-04-22 22:00 | XMS_ITS | Encounter Summary ---
Author Organization [facility] Address [address] [place] [address] Care Team Providers Care Risk Engineer Name Role Phone Diya Gifford MD Primary Care Provide r Dariana Juarez MD Unavailable [phone] Encounter Details Date Type Department Care Team (Late st Contact Info) Description 12/16/2021 Lab Requisition [facility] Pathology & Laboratory Medicine - [facility] [address] [place] [address] Outr Resulting Lab, Provider Social History Tobacco [...] [facility] Interventional Pain [address] [place] [address] Percy Molina MD [address] [facility] [address] [place] [address] 01/25/2026 12:00 EDT Office Visit [facility] Center Hematology & Oncology - [facility] [address] [place], [place] [phone] Jorge Lim MD 111 [facility], Level 2 [place] [phone] documented as of this encounter Procedures Procedure Name Priority Date/Time Associated Diagnosis Comments HIV 1/2 ANTIGEN AND ANTIBODY, 4TH GENERATION Routine 12/16/2021 11:00 EDT documented in this encounter Results * HIV 1/2 ANTIGEN AND ANTIBODY, 4TH GENERATION (12/16/2021 11:00 EDT) Pathologist [facility] HIV 1 and 2 Antibody/p24 Antigen, 4th Generation Negative Negative 12/17/2021 10:27 EDT [facility] Comment:If acute HIV-1 infec tion is suspected in a high risk patient, submit plasma specimen for HIV-1 RNA quantitation test. Blood VENOUS BLOOD / Unknown 12/16/2021 11:00 EDT 12/16/2021 21:15 EDT Narrative [facility] - 12/17/2021 10:27 EDT Fourth Generation assay performed on the Siemens Centaur XPT. Provider Outr Resulting Lab IMMUNOLOGY A ND SEROLOGY ORDERABLES [facility] [address] [place] [address] documented in this encounter Visit Diagnoses Not on filedocumented in this encounter Care Teams Risk Engineer Relationship Specialty Start Date End Date Diya Gifford MD 4 [facility] [address] [place], [place] [address] PCP - General 07/26/19 Dariana Juarez MD [address] [place] [address] [address] [place] [phone] Consulting Clinician Cardiovascular Disease 02/06/22 documented as of this encounter
--- OUTSIDE RECORDS SUMMARY | 2024-04-22 22:00 | XMS_ITS | Encounter Summary ---
Author Organization [facility] Address [address] [place] [address] Care Team Providers Care Landcare Facilitator Name Role Phone Diya Gifford MD Primary Care Provide r Dariana Juarez MD Unavailable [phone] Encounter Details Date Type Department Care Team (Late st Contact Info) Description 09/01/2022 Orders Only [facility] Cardiology Clinic [address] [place] [address] Gwendolyn Martinez MA Encounter for loop [...] [facility] Interventional Pain [address] [place], [place] [phone] Percy Molina MD [address] [place] [address] 01/25/2026 12:00 EDT Office Visit [facility] Center Hematology & Oncology - [facility] [address] [place], [place] [phone] Jorge Lim MD 111 [facility], [facility], Level 2 [place] [phone] documented as of this encounter Procedures Procedure [...] device documented in this encounter Care Teams Landcare Facilitator Relationship Specialty Start Date End Date Diya Gifford MD [address] [place] [address] [address] [place] [address] PCP - General 07/26/19 Dariana Juarez MD [address] [place] [address] [phone] Consulting Clinician Cardiovascular Disease 02/06/22 documented as of this encounter
--- OUTSIDE RECORDS SUMMARY | 2024-04-22 22:00 | XMS_ITS | Encounter Summary ---
Author Organization [facility] Address [address] [place] [address] Care Team Providers Care Retail Shift Manager Name Role Phone Diya Gifford MD Primary Care Provide r Dariana Juarez MD Unavailable [phone] Reason for Visit * (Routine/Next Available) - Authorization Not Required Specialty Diagnoses / Procedures Referred By Ar salinas Referred To Contact Diagnoses Encounter for loop recorder check Procedures CARDIAC IMPLANT CHECK - IN CLINIC Dano Victoria, JUAN [address] [facility] [address] [place] [address] [facility] Referral ID Status Reason Start Date Expiration Date Visits Requested Visits Authorized [id number] Authorization Not Required 2 18 18 Encounter Details Date Type Department Care Team (Latest Contact Info) Description 07/01/2022 14:00 EST Ancillary Procedure [facility] Cardiology Clinic [address] [place] [address] Encounter for loop recorder check [...] [facility] Interventional Pain [address] [place] [address] Percy Molina MD 62 [facility] [address] [place] [address] 01/25/2026 12:00 EDT Office Visit [facility] Cancer Center Hematology & Oncology - [facility] [address] [place], [place] [phone] Jorge Lim MD 111 [facility], [facility], Level [address] [place] [address] documented as of this encounter Visit Diagnoses Diagnosis Encounter for loop recorder check Fitting and adjustment of other cardiac device documented in this encounter Orders Imaging Orders Without Results Count Last Order ed Date First Ordered Date CARDIAC IMPLANT CHECK - IN CLINIC 1 023 documented in this encounter Care Teams Retail Shift Manager Relationship Specialty Start Date End Date Diya Gifford MD [address] [place] [address] [address] [place], [place] [address] PCP - General 07/26/19 Dariana Juarez MD [address] [place] [address] [address] [place] [phone] Consulting Clinician Cardiovascular Disease 02/06/22 documented as of this encounter
--- OUTSIDE RECORDS SUMMARY | 2024-04-22 22:00 | XMS_ITS | Encounter Summary ---
Author Organization [facility] Address [address] [place] [address] Care Team Providers Care Precision Devices Inspector/Tester Name Role Phone Diya Gifford MD Primary Care Provide r Reason for Visit * Cardiology (Routine/Next Available) - Authorization Not Required Specialty Diagnoses / Procedures Referred By Contshala salinas Referred To Contact Diagnoses Syncope, unspecified syncope type Palpitations Procedures HOLTER MONITOR SCAN - 48 Diya Gifford MD 4 [facility] [address] [place] [address] Referral ID Status Reason Start Date Expiration Date Visits Requested Visits Authorized [id number] Authorization Not Required 11/18/2021 1 1 Encounter Details Date Type Department Care Team (Latest Contact Info) Description 11/18/2021 10:23 EDT - 11/18/2021 23:59 EDT Hospital Encounter [facility] [address] [place] [address] Syncope, unspecified syncope type; Palpitations Discharge Disposition: [...] Code Departure Means Destination Home or Self Longterm documented in this encounter Plan of Treatment Upcoming Encounters Date Type Department Care Team (Late st Contact Info) Description 04/26/2024 9:15 EDT Office Visit [facility] Interventional Pain [address] [place], [place] [phone] Percy Molina MD [address] [place] [address] 01/25/2026 12:00 EDT Office Visit [facility] Center Hematology & Oncology - [facility] [address] [place], [place] [phone] Jorge Lim MD 111 [facility], [facility], Level 2 [place] [address] documented as of this encounter [...] Palpitations documented in this encounter Care Teams Precision Devices Inspector/Tester Relationship Specialty Start Date End Date Diya Gifford MD 4 [facility] [address] [place] [address] PCP - General 07/26/19 documented as of this encounter
--- OUTSIDE RECORDS SUMMARY | 2024-04-22 22:00 | XMS_ITS | Encounter Summary ---
Author Organization [facility] Address [address] [place] [address] Care Team Providers Care Motor Pool Driver Name Role Phone Diya Gifford MD Primary Care Provide r Reason for Referral * Cardiology (Routine/Next Available) - Authorization Not Required Specialty Diagnoses / Procedures Referred By Ar salinas Referred To Contact Diagnoses Syncope and collapse Palpitations Procedures HOLTER MONITOR - 48 Diya Gifford MD 4 [facility] [address] [place] [address] [facility] Referral ID Status Reason Start Date Expiration Date Visits Requested Visits Authorized [id number] Authorization Not Required 11/04/2021 1 1 Reason for Visit * Cardiology (Routine/Next Available) - Authorization Not Required Specialty Diagnoses / Procedures Referred By Ar salinas Referred To Contact Diagnoses Syncope and collapse Palpitations Procedures HOLTER MONITOR - 48 Diya Gifford MD 4 [facility] [address] [place] [address] [facility] Referral ID Status Reason Start Date Expiration Date Visits Requested Visits Authorized [id number] Authorization Not Required 11/04/2021 1 1 Encounter Details Date Type Department Care Team (Latest Contact Info) Description 11/14/2021 8:52 EDT - 11/14/2021 23:59 EDT Hospital Encounter [facility] Non-Invasive Cardiology [address] [place] [address] Syncope and collapse; Palpitations Discharge Disposition: Home [...] Health [facility] Interventional Pain 62 [facility] [place], [place] [phone] Percy Molina MD [address] [facility] [address] [place] [phone] 01/25/2026 12:00 EDT Office Visit [facility] Hematology & Oncology - [facility] [address] [place], [place] [address] Jorge Lim MD [address] [facility], Level [address] [place] [phone] documented as of this encounter Procedures Procedure [...] Palpitations documented in this encounter Care Teams Motor Pool Driver Relationship Specialty Start Date End Date Diya Gifford MD 4 [facility] [address] [place] [address] PCP - General 07/26/19 documented as of this encounter
--- OUTSIDE RECORDS SUMMARY | 2024-04-22 22:00 | XMS_ITS | Encounter Summary ---
Author Organization [facility] Address [address] [place] [address] Care Team Providers Care Radio Electrician Name Role Phone Diya Gifford MD Primary Care Provide r Dariana Juarez MD Unavailable [phone] Reason for Visit * Reason Comments Follow-up Wound check SP Valente perkins implant Encounter Details Date Type Department Care Team (Late st Contact Info) Description 05/16/2022 13:30 EST Nurse Only [facility] Cardiology Clinic [address] [place] [address] Nurse, [facility] Syncope and collapse (Primary Dx) [...] Visit [facility] Interventional Pain [address] [place] [address] Percy Molina MD 62 [facility] [address] [place] [address] 01/25/2026 12:00 EDT Office Visit [facility] Hematology & Oncology - [facility] [address] [place] [address] Jorge Lim MD [address] [place] [address], [facility], Level [address] [place] [address] documented as of this encounter Visit Diagnoses Diagnosis Syncope and collapse- Primary documented in this encounter Care Teams Radio Electrician Relationship Specialty Start Date End Date Diya Gifford MD [address] [place] [address] PCP - General 07/26/19 Dariana Juarez MD [address] [place] [address] [address] [place] [phone] Consulting Clinician Cardiovascular Disease 02/06/22 documented as of this encounter
--- OUTSIDE RECORDS SUMMARY | 2024-04-22 22:00 | XMS_ITS | Encounter Summary ---
Author Organization [facility] Address [address] [place] [address] Care Team Providers Care Collet Driller Name Role Phone Diya Gifford MD Primary Care Provide r Dariana Juarez MD Unavailable [phone] Encounter Details Date Type Department Care [...] Info) Description 04/26/2024 9:15 EDT Office Visit [facility] Interventional Pain [address] [place], [place] [phone] Percy Molina MD 62 [facility] [address] [place] [address] 01/25/2026 12:00 EDT Office Visit [facility] Cancer Center Hematology & Oncology - [facility] [address] [place], [place] [phone] Jorge Lim MD 111 [facility], Level 2 [place] [address] documented as of this encounter Visit Diagnoses Not on filedocumented in this encounter Care Teams Collet Driller Relationship Specialty Start Date End Date Diya Gifford MD [address] [place] [address] [address] [place], [place] [address] PCP - General 07/26/19 Dariana Juarez MD [address] [place] [address] [address] [place] [phone] Consulting Clinician Cardiovascular Disease 02/06/22 documented as of this encounter
--- OUTSIDE RECORDS SUMMARY | 2024-04-22 22:00 | XMS_ITS | Encounter Summary ---
Author Organization [facility] Address [address] [place] [address] Care Team Providers Care Home Visits Nurse Name Role Phone Diya Gifford MD Primary Care Provide r Dariana Juarez MD Unavailable [phone] Encounter Details Date Type Department Care [...] [facility] Interventional Pain [address] [place], [place] [phone] Percy Molina MD [address] [facility] [address] [place] [address] 01/25/2026 12:00 EDT Office Visit [facility] Center Hematology & Oncology - [facility] [address] [place], [place] [phone] Jorge Lim MD 111 [facility], Level [address] [place] [address] documented as of this encounter Visit Diagnoses Not on filedocumented in this encounter Care Teams Home Visits Nurse Relationship Specialty Start Date End Date Diya Gifford MD [address] [place] [address] [address] [place], [place] [address] PCP - General 07/26/19 Dariana Juarez MD [address] [place] [address] [address] [place] [phone] Consulting Clinician Cardiovascular Disease 02/06/22 documented as of this encounter
--- OUTSIDE RECORDS SUMMARY | 2024-04-22 22:00 | XMS_ITS | Encounter Summary ---
Author Organization [facility] Address [address] [place] [address] Care Team Providers Care Calculation Clerk Name Role Phone Diya Gifford MD Primary Care Provide r Dariana Juarez MD Unavailable [phone] Encounter Details Date Type Department Care Team (Late st Contact Info) Description 09/30/2022 Orders Only [facility] Cardiology Clinic [address] [place] [address] Gwendolyn Martinez MA Encounter for loop [...] Info) Description 04/26/2024 9:15 EDT Office Visit [facility] Interventional Pain [address] [place], [place] [phone] Percy Molina MD [address] [place] [address] 01/25/2026 12:00 EDT Office Visit [facility] Center Hematology & Oncology - [facility] [address] [place], [place] [phone] Jorge Lim MD 111 [facility], [facility], Level 2 [place] [phone] documented as of this encounter Procedures Procedure [...] device documented in this encounter Care Teams Calculation Clerk Relationship Specialty Start Date End Date Diya Gifford MD [address] [place] [address] PCP - General 07/26/19 Dariana Juarez MD [address] [place] [phone] Consulting Clinician Cardiovascular Disease 02/06/22 documented as of this encounter
--- OUTSIDE RECORDS SUMMARY | 2024-04-22 22:00 | XMS_ITS | Encounter Summary ---
Author Organization [facility] Address [address] [place] [address] Care Team Providers Care Overhauler Helper Name Role Phone Diya Gifford MD Primary Care Provide r Dariana Juarez MD Unavailable [phone] Encounter Details Date Type Department Care Team (Late st Contact Info) Description 12/17/2021 Lab Requisition [facility] Pathology & Laboratory Medicine - [facility] [address] [place] [address] Outr Resulting Lab, Provider Social History Tobacco [...] Info) Description 04/26/2024 9:15 EDT Office Visit [facility] Interventional Pain [address] [place] [address] Percy Molina MD [address] [place] [address] 01/25/2026 12:00 EDT Office Visit [facility] Hematology & Oncology - [facility] [address] [place], [place] [phone] Jorge Lim MD 111 [facility], Level 2 [place] [phone] documented as of this encounter Procedures Procedure Name Priority Date/Time Associated Diagnosis Comments FOLATE Routine 12/16/2021 11:00 EDT documented in this encounter Results * FOLATE (12/16/2021 11:00 EDT) Folate 10.6 See Note ng/mL 12/17/2021 19:01 EDT [facility] Comment: Reference Ranges for Folate: Deficient: ?< 3.4 ng/mL Indeterminate: ??3.4 - 5.4 ng/mL Normal: ? > 5.4 ng/mL The results of this assay can be falsely elevated due to the consumption of Biotin. Blood VENOUS BLOOD / Unknown 12/16/2021 11:00 EDT 12/17/2021 17:23 EDT Provider Outr Resulting Lab CHEMISTRY & BLOOD GAS ORDERABLES [facility] [address] [place] [address] documented in this encounter Visit Diagnoses Not on filedocumented in this encounter Care Teams Overhauler Helper Relationship Specialty Start Date End Date Diya Gifford MD 4 [facility] [address] [place], [place] [address] PCP - General 07/26/19 Dariana Juarez MD [address] [place] [phone] Consulting Clinician Cardiovascular Disease 02/06/22 documented as of this encounter
--- OUTSIDE RECORDS SUMMARY | 2024-04-22 22:00 | XMS_ITS | Encounter Summary ---
Author Organization [facility] Address [address] [place] [address] Care Team Providers Care Duplicating Machine Servicer Name Role Phone Diya Gifford MD Primary Care Provide r Reason for Visit * Cardiology (Routine/Next Available) - Authorization Not Required Specialty Diagnoses / Procedures Referred By [facility] salinas Referred To Contact Diagnoses Syncope, unspecified syncope type Procedures CARDIAC EVENT MONITOR Dariana Juarez MD 111 [facility] 1 [place] [address] [facility] Referral ID Status Reason Start Date Expiration Date Visits Requested Visits Authorized [id number] Authorization Not Required 12/03/2021 1 1 Encounter Details Date Type Department Care Team (Latest Contact Info) Description 12/03/2021 9:00 EDT Ancillary Procedure [facility] Cardiology Clinic [address] [place] [address] Syncope, unspecified syncope type Social History Tobacco [...] Info) Description 04/26/2024 9:15 EDT Office Visit [facility] Interventional Pain [address] [place] [address] Percy Molina MD 62 [facility] [address] [place] [address] 01/25/2026 12:00 EDT Office Visit [facility] Cancer Center Hematology & Oncology - [facility] [address] [place], [place] [address] Jorge Lim MD 111 [facility], [address] [place] [phone] documented as of this encounter Procedures Procedure Name Priority Date/Time Associated Diagnosis Comments 30 DAY NO EXPERIENCE Routine 12/03/2021 9:41 EDT Syncope, unspecified syncope [...] type documented in this encounter Care Teams Duplicating Machine Servicer Relationship Specialty Start Date End Date Diya Gifford MD 4 [facility] [address] [place] [address] PCP - General 07/26/19 documented as of this encounter
--- OUTSIDE RECORDS SUMMARY | 2024-04-22 22:00 | XMS_ITS | Encounter Summary ---
Author Organization [facility] Address [address] [place] [address] Care Team Providers Care Clothes Designer Name Role Phone Diya Gifford MD Primary Care Provide r Dariana Juarez MD Unavailable [phone] Reason for Visit * Reason Comments Follow-up Syncope and collapse Encounter Details Date Type Department Care Team (Late st Contact Info) Description 03/19/2022 14:00 EDT Office Visit [facility] Cardiology Clinic [address] [place], [place] [address] Dariana Juarez MD 111 [facility] 1 [place] [address] Syncope and collapse (Primary Dx) [...] Dariana Juarez MD - 03/19/2022 1400 EDT [facility] Cardiology Office Visit Subjective: Chief Complaint(s): Follow-up [...] prodrome. Went to the emergency room at [facility] was admitted for monitoring. Echocardiogram at [...] her to abstain from driving. TTE from [facility] was normal. She had no syncopal [...] Visit [facility] Interventional Pain [address] [place] [address] Percy Molina MD [address] [facility] [address] [place] [address] 01/25/2026 12:00 EDT Office Visit [facility] Cancer Center Hematology & Oncology - [facility] [address] [place], [place] [phone] Jorge Lim MD 111 [facility], [facility], Level 2 [place] [address] documented as of this encounter [...] documented as of this encounter Care Teams Clothes Designer Relationship Specialty Start Date End Date Diya Gifford MD [address] [place] [address] [address] [place] [address] PCP - General 07/26/19 Dariana Juarez MD [address] [place] [address] [address] [place] [address] Consulting Clinician Cardiovascular Disease 02/06/22 documented as of this encounter
--- OUTSIDE RECORDS SUMMARY | 2024-04-22 22:00 | XMS_ITS | Encounter Summary ---
Author Organization [facility] Address [address] [place] [address] Care Team Providers Care Process Tank Tender Name Role Phone Diya Gifford MD [...] Description 04/26/2024 9:15 EDT Office Visit [facility] Interventional Pain [address] [place] [address] Percy Molina MD 62 [facility] [address] [place] [address] 01/25/2026 12:00 EDT Office Visit [facility] Cancer Center Hematology & Oncology - [facility] [address] [place], [place] [phone] Jorge Lim MD 111 [facility], Level 2 [place] [phone] documented as of this encounter Visit Diagnoses Not on filedocumented in this encounter Care Teams Process Tank Tender Relationship Specialty Start Date End Date Diya Gifford MD [address] [place] [address] [address] [place], [place] [address] PCP - General 07/26/19 documented as of this encounter
--- OUTSIDE RECORDS SUMMARY | 2024-04-22 22:00 | XMS_ITS | Encounter Summary ---
Author Organization [facility] Address [address] [place] [address] Care Team Providers Care Motor Express Clerk Name Role Phone Diya Gifford MD [...] Medical Center Interventional Pain [address] [place] [address] Percy Molina MD 62 [facility] [address] [place] [address] 01/25/2026 12:00 EDT Office Visit [facility] Cancer Center Hematology & Oncology - [facility] [address] [place], [place] [address] Jorge Lim MD 111 [facility], Level 2 [place] [phone] documented as of this encounter Visit Diagnoses Not on filedocumented in this encounter Care Teams Motor Express Clerk Relationship Specialty Start Date End Date Diya Gifford MD [address] [place] [address] [address] [place], [place] [address] PCP - General 07/26/19 documented as of this encounter
--- OUTSIDE RECORDS SUMMARY | 2024-04-22 22:00 | XMS_ITS | Encounter Summary ---
Author Organization [facility] Address [address] [place] [address] Care Team Providers Care Coke Crane Operator Name Role Phone Diya Gifford MD Primary Care Provide r Dariana Juarez MD Unavailable [phone] Reason for Visit * Reason Onset Date Comments Follow-up 03/19/2022 Reveal Implant Encounter Details Date Type Department Care Team (Late st Contact Info) Description 03/19/2022 Telephone [facility] Cardiology Clinic [address] [place] [address] Kathy Mcgee, TATUM [address] [place] [address] [address] [place] [address] Follow-up (Reveal Implant) Social History [...] 1502 EDT Per patient will need Reveal qimqytz-JR-Pvuktcr/collapse. documented in this encounter Plan of Treatment Upcoming Encounters Date Type Department Care Team (Late st Contact Info) Description 04/26/2024 9:15 EDT Office Visit [facility] Interventional Pain 62 [facility] [place], [place] [phone] Percy Molina MD 62 [facility] [address] [place] [address] 01/25/2026 12:00 EDT Office Visit [facility] Cancer Center Hematology & Oncology - [facility] [address] [place] [address] Jorge Lim MD 111 [facility], Level 2 [place] [phone] documented as of this encounter Visit Diagnoses Not on filedocumented in this encounter Care Teams Coke Crane Operator Relationship Specialty Start Date End Date Diya Gifford MD [address] [place] [phone] PCP - General 07/26/19 Dariana Juarez MD [address] [place] [address]-[address] [place] [address] Consulting Clinician Cardiovascular Disease 02/06/22 documented as of this encounter
--- OUTSIDE RECORDS SUMMARY | 2024-04-22 22:00 | XMS_ITS | Encounter Summary ---
Author Organization [facility] Address [address] [place] [address] Care Team Providers Care Investment Advisor Name Role Phone Diya Gifford MD Primary Care Provide r Dariana Juarez MD Unavailable [phone] Encounter Details Date Type Department Care Team (Mary Contact Info) Description 08/01/2022 Orders Only [facility] Cardiology Clinic [address] [place] [address] Gwendolyn Martinez MA Social History Tobacco [...] Care Team (Mary james Contact Info) Description 04/26/2024 9:15 EDT Office Visit [facility] Interventional Pain [address] [place], [place] [phone] Percy Molina MD 62 [facility] [address] [place] [address] 01/25/2026 12:00 EDT Office Visit [facility] Cancer Center Hematology & Oncology - [facility] [address] [place], [place] [phone] Jorge Lim MD 111 [facility], Level [address] [place] [phone] documented as of this encounter Visit Diagnoses Not on filedocumented in this encounter Care Teams Investment Advisor Relationship Specialty Start Date End Date Diya Gifford MD [address] [place] [address] PCP - General 07/26/19 Dariana Juarez MD [address] [place] [address] [address] [place] [address] Consulting Clinician Cardiovascular Disease 02/06/22 documented as of this encounter
--- OUTSIDE RECORDS SUMMARY | 2024-04-22 22:00 | XMS_ITS | Encounter Summary ---
Author Organization [facility] Address [address] [place] [address] Care Team Providers Care Log Driver Name Role Phone Diya Gifford MD Primary Care Provide r Reason for Visit * Cardiology (Routine/Next Available) - Specialty Report Received Specialty Diagnoses / Procedures Referred By Ar salinas Referred To Contact Nuclear Medicine Diagnoses Syncope, unspecified syncope type Procedures NM CARD SPECT NUCLEAR STRESS Dariana Juarez MD 111 [facility] 1 [place] [address] [facility] Referral ID Status Reason Start Date Expiration Date V isits Requested Visits Authorized [id number] Specialty Report Received 12/03/2021 1 1 Encounter Details Date Type Department Care Team (Latest Contact Info) Description 12/25/2021 7:14 EDT - 12/25/2021 23:59 EDT Hospital Encounter [facility] - [facility] Non-Invasive Cardiology [address] [place] [address] Discharge Disposition: Home or Self Care Social [...] or Self Penitentiary documented in this encounter Plan of Treatment Upcoming Encounters Date Type Department Care Team (Late st Contact Info) Description 04/26/2024 9:15 EDT [facility] Interventional Pain 62 [facility] [place] [address] Percy Molina MD 62 [facility] [address] [place] [address] 01/25/2026 12:00 EDT Office Visit [facility] Cancer Center Hematology & Oncology - [facility] [address] [place], [place] [address] Jorge Lim MD 111 [facility], Level [address] [place] [phone] documented as of this encounter Procedures Procedure [...] mg documented in this encounter Care Teams Log Driver Relationship Specialty Start Date End Date Diya Gifford MD 4 [facility] [address] [place] [address] PCP - General 07/26/19 documented as of this encounter
--- OUTSIDE RECORDS SUMMARY | 2024-04-22 22:00 | XMS_ITS | Encounter Summary ---
Author Organization [facility] Address [address] [place] [address] Care Team Providers Care District Associate Judge Name Role Phone Diya Gifford MD Primary Care Provide r Dariana Juarez MD Unavailable [phone] Reason for Referral * Office Procedure (Routine/Next Available) - Authorization Not Required Specialty Diagnoses / Procedures Referred By Contac t Referred To Contact Neurology Diagnoses Syncope, unspecified syncope type Procedures EEG Lobito Hogue MD [address] [facility] [address] [facility] [address] [place] [address] Referral ID Status Reason Start Date Expiration Date Visits Requested Visits Authorized [id number] Authorization Not Required 02/13/2022 1 1 Reason for Visit * Office Procedure (Routine/Next Available) - Authorization Not Required Specialty Diagnoses / Procedures Referred By Contac t Referred To Contact Neurology Diagnoses Syncope, unspecified syncope type Procedures EEG Lobito Hogue MD [address] [place] [address] [facility] [address] [place] [address] Referral ID Status Reason Start Date Expiration Date Visits Requested Visits Authorized [id number] Authorization Not Required 02/13/2022 1 1 Encounter Details Date Type Department Care Team (Latest Contact Info) Description 03/07/2022 6:33 EDT - 03/07/2022 23:59 EDT Hospital Encounter [facility] EEG [address] [place] [address] Syncope, unspecified syncope type Discharge Disposition: Home [...] MD - 03/07/2022 0700 EDTAssociated Order(s): EEG [facility] Neurophysiology lab Electroencephalogram report Patient: Marilin Allen [...] Office Visit [facility] Interventional Pain [address] [place] [address] Percy Molina MD 62 [facility] [address] [place] [address] 01/25/2026 12:00 EDT Office Visit [facility] Cancer Center Hematology & Oncology - [facility] [address] [place], [place] [phone] Jorge Lim MD 111 [facility], [address] 2 [place] [phone] documented as of this encounter Procedures Procedure Name Priority Date/Time Associated Diagnosis Comments EEG Routine 03/07/2022 7:00 EDT Syncope, unspecified syncope type documented in this encounter Results * EEG (03/07/2022 7:00 EDT) Narrative [facility] NEUROLOGY - 03/07/2022 7:00 EDT Mark Donaldson MD ? 03/11/2022 13:48 [facility] Neurophysiology lab Electroencephalogram report Patient: Marilin Allen [...] Donaldson MD Lobito Hogue MD NEUROLOGY ORDERABLES [facility] NEUROLOGY documented in this encounter Visit Diagnoses Diagnosis Syncope, unspecified syncope type documented in this encounter Care Teams District Associate Judge Relationship Specialty Start Date End Date Diya Gifford MD [address] [place] [address] [address] [place] [address] PCP - General 07/26/19 Dariana Juarez MD [address] [place] [address]-[address] [place] [phone] Consulting Clinician Cardiovascular Disease 02/06/22 documented as of this encounter
--- OUTSIDE RECORDS SUMMARY | 2024-04-22 22:00 | XMS_ITS | Encounter Summary ---
Author Organization [facility] Address [address] [place] [address] Care Team Providers Care Crime Scene Photographer Name Role Phone Diya iGfford MD Primary Care Provide r Dariana Juarez MD Unavailable [phone] Reason for Visit * Auth/Cert Specialty Diagnoses / Procedures Referred By Ar salinas Referred To Contact Diagnoses Syncope and collapse Syncope and collapse [R55] Procedures MD INSERTION SUBQ CARDIAC RHYTHM MONITOR W/PRGRMG INSERTION, NUCLEAR DESIGN ENGINEER, SUBCUTANEOUS, WITH PROGRAMMING Referral ID Status Reason Start Date Expiration Date Visits Re quested Visits Authorized [id number] 1 1 Encounter Details Date Type Department Care Team (Late st Contact Info) Description 05/08/2022 13:45 EST - 05/08/2022 14:45 EST Surgery [facility] - [facility] Operating Room [address] [place] [address] Seferino Chambers MD [address] [place] [address]-A [address] [place] [phone] INSERTION, NUCLEAR DESIGN ENGINEER, SUBCUTANEOUS, WITH PROGRAMMING [76708 (CPT??)] Surgery Details Date/Time Status Location OR Service Patient Class Case Cl ass Case Type Trauma Case? 05/08/22 1345 Posted [facility] OR OR [address] [place] [address] Outpatient Surgery H - Elective Panel 1 Procedure LRB Anes Op Region Wound Class Comments INSERTION, NUCLEAR DESIGN ENGINEER, SUBCUTANEOUS, WITH PROGRAMMING N/A Local (Nurse-Monitored) Class [...] be sent through Care Everywhere. * Implantable Content Analyst: Post-op (Hungarian) documented in this encounter Medications at Time [...] Code Departure Means Destination Home or Self Group Home documented in this encounter Nursing Notes * Luis Boyce RN - 05/08/2022 1546 EST Pt very overwhelmed with procedure and the continued work-up. Franchise Sales Manager from [employer] explained how to set up device at [...] Chambers MD - 05/08/2022 1400 EST INSERTION, NUCLEAR DESIGN ENGINEER, SUBCUTANEOUS, WITH PROGRAMMING Operative Note Date: 05/08/2022 Location: [facility] OR Name: Marilin Allen, : 1975, Diagnosis Pre-Op Diagnosis Codes: * Syncope and collapse [R55] Post-op Diagnosis * Syncope and collapse [R55] Procedures * INSERTION, NUCLEAR DESIGN ENGINEER, SUBCUTANEOUS, WITH PROGRAMMING Surgeons * Seferino Chambers [...] No. ICM SYSTEM REVEAL LINQ II - [id number] Implanted [id number] Staff: Supplier Engineer: Corinne Conrad RN Scrub Person: Keshawn Felix [...] covered with Dermabond skin glue. Implanted hardware: [employer] Reveal LINQ2 ICM, model number [id number] Sensing sensitivity: 0.035 mV [place] zone: Above 182 bpm, 16 beats. Bradycardia zone: Below 30 bpm, 4 beats. Asystole pauses: 3 seconds. Symptom episodes: 3 x 10 minutes. Summary: Successful implantation of a subcutaneously injected Reveal LINQ2 hearing therapy director device. CPT 26411 Complications: None; patient tolerated the procedure well. [...] Note - Seferino Chambers MD - 05/08/2022 1829 EST Date: 05/08/2022 Location: [facility] OR Name: Marilin Allen, : 1975, Diagnosis Pre-Op Diagnosis Codes: * Syncope and collapse [R55] Post-op Diagnosis * Syncope and collapse [R55] Procedures * INSERTION, NUCLEAR DESIGN ENGINEER, SUBCUTANEOUS, WITH PROGRAMMING Surgeons * Seferino Chambers [...] No. ICM SYSTEM REVEAL LINQ II - [id number] Implanted [id number] Staff: Supplier Engineer: Corinne Conrad RN Scrub Person: Keshawn Felix [...] Info) Description 04/26/2024 9:15 EDT Office Visit [facility] Interventional Pain [address] [facility] [place] [address] Percy Molina MD 62 [facility] [address] [place] [address] 01/25/2026 12:00 EDT Office Visit [facility] Cancer Center Hematology & Oncology - [address] [phone] Jorge Lim MD [address] [place] [address], Level 2 [place] [address] documented as of this encounter Procedures Procedure Name Priority Date/Time Associated Diagnosis Comments ECG REPORT - SCANNED 05/12/2022 13:18 EST INSERTION, NUCLEAR DESIGN ENGINEER, SUBCUTANEOUS, WITH PROGRAMMING 05/08/2022 13:50 EST Syncope and collapse Special Needs SF documented in this encounter Results * ECG REPORT - SCANNED (05/12/2022 13:18 EST) 05/12/2022 13:1 8 EST Scan 2 Billet Heater Operator PROCEDURE/MINOR ROGELIO GICAL ORDERABLES documented in this [...] 05/08/2022 documented in this encounter Care Teams Crime Scene Photographer Relationship Specialty Start Date End Date Diya Gifford MD [address] [place] [address] [address] [place], [place] [address] PCP - General 07/26/19 Dariana Juarez MD [address] [place] [address] 2-[address] [place] [phone] Consulting Clinician Cardiovascular Disease 02/06/22 documented as of this encounter
--- OUTSIDE RECORDS SUMMARY | 2024-04-22 22:01 | XMS_ITS | Encounter Summary ---
Author Organization [facility] Address [address] [place] [address] Care Team Providers Care Insurance And Financial Services Agent Name Role Phone Diya Gifford MD Primary Care Provide r Reason for Referral * Cardiology (Routine/Next Available) - Receiving Office to Obtain Authorization Specialty Diagnoses / Procedures Referred By Ar salinas Referred To Contact Diagnoses Arrhythmia Procedures EKG 12-LEAD Dariana Juarez MD [address] [place] [phone] Referral ID Status Reason Start Date Expiration Date Visits Requested Visits Authorized [id number] Receiving Office to Obtain Authorization 09/23/2021 1 1 Reason for Visit * Cardiology (Routine/Next Available) - Receiving Office to Obtain Authorization Specialty Diagnoses / Procedures Referred By Ar salinas Referred To Contact Diagnoses Arrhythmia Procedures EKG 12-LEAD Dariana Juarez MD [address] [place] [phone] Referral ID Status Reason Start Date Expiration Date Visits Requested Visits Authorized [id number] Receiving Office to Obtain Authorization 09/23/2021 1 1 Encounter Details Date Type Department Care Team (Latest Contact Info) Description 09/23/2021 10:28 EDT - 09/23/2021 23:59 EDT Hospital Encounter [facility] Non-Invasive Cardiology - [address] [address] Arrhythmia Discharge Disposition: Home or Self Care [...] Office Visit [facility] Interventional Pain 62 [facility] [place] [address] Percy Molina MD 62 [facility] [address] [place] [address] 01/25/2026 12:00 EDT Office Visit [facility] Center Hematology & Oncology - [facility] [address] [place], [place] [phone] Jorge Lim MD 111 [facility] 2 [place] [address] documented as of this encounter Procedures Procedure Name Priority Date/Time Associated Diagnosis Comments ECG REPORT - SCANNED 09/25/2021 11:20 EDT EKG 12-LEAD Routine 09/23/2021 10:39 EDT Arrhythmia documented in this encounter Results * ECG REPORT - SCANNED (09/25/2021 11:20 EDT) 09/25/2021 11:2 0 EDT Scan 2 Meteorology Instructor PROCEDURE/MINOR ROGELIO GICAL ORDERABLES * EKG 12-LEAD (09/23/2021 10:39 EDT) 09/23/2021 10:3 9 EDT Narrative [facility] EKG - 09/25/2021 11:15 EDT ? [facility] ? Test Date: ?2021-09-23 Pat Name: ? THONG HESTER ? Department: ?? [id number] ? Room: ? Gender: ? Female ? Curtain Framer: ?? : ?1975 ? Requested By: ZITA DEWITT Jenna Order Number: [id number] ? Reading MD: ?? JONAH ANDERSEN SA MD ? Measurements Intervals ?Mason ? Rate: ? 93 ? P: ?65 AL: ? 141 ?QRS: ?55 QRSD: ? 86 [...] Jonah Muñoz Sa, MD - 09/25/2021 [facility] Test Date: 2021-09-23 Pat Name: THONG HESTER Department: [id number] Room: Gender: Female Curtain Framer: : 1975 Requested By: ZITA West Order Number: [id number] Reading MD: JONAH HUSAIN Measurements Intervals Mason Rate: 93 P: 65 AL: 141 QRS: 55 QRSD: 86 T: 49 QT: 350 QTc: 437 Interpretive Statements SINUS RHYTHM Automated Interpretation. Provider Interpretation to follow. No previous ECG available for comparison I reviewed the tracing and have either agreed or edited the findings inthis report. Electronically Signed On 09-25-2021 11:15:54 EDT by JONAH CANSECO SA, MD. Dariana Juarez MD CARDIAC ECG ORDERABL ES [facility] EKG documented in this encounter Visit Diagnoses Diagnosis Arrhythmia Cardiac dysrhythmia, unspecified documented in this encounter Care Teams Insurance And Financial Services Agent Relationship Specialty Start Date End Date Diya Gifford MD [address] [place] [place] [address] [address] [place] [address] PCP - General 07/26/19 documented as of this encounter
--- OUTSIDE RECORDS SUMMARY | 2024-04-22 22:01 | XMS_ITS | Encounter Summary ---
Author Organization [facility] Address [address] [place] [address] Care Team Providers Care Field Kiln Burner Name Role Phone Diya Gifford MD Primary Care Provide r Reason for Referral * Radiology Services (Routine) - Specialty Report Received Specialty Diagnoses / Procedures Referred By Ar salinas Referred To Contact Diagnoses Neck pain Procedures XR CERVICAL SPINE 4-5 VIEWS Mike Coker MD [address] [place] [address] [place] [address] Referral ID Status Reason Start Date Expiration Date V isits Requested Visits Authorized [id number] Specialty Report Received 01/27/2020 1 1 Encounter Details Date Type Department Care Team (Late st Contact Info) Description 01/27/2020 Orders Only [facility] Spine Program - [address] [facility] [place] [address] Mike Coker MD [address] [place] [address] Neck pain (Primary Dx) Social History [...] [facility] Interventional Pain [address] [facility] [place] [address] Percy Molina MD [address] [facility] [address] [place] [address] 01/25/2026 12:00 EDT Office Visit [facility] Hematology & Oncology - [facility] [address] [place], [place] [phone] Jorge Lim MD 111 [facility], Level 2 [place] [phone] documented as of this encounter Results * [...] Cervicalgia documented in this encounter Care Teams Field Kiln Burner Relationship Specialty Start Date End Date Diya Gifford MD [address] [place] [address] PCP - General 07/26/19 documented as of this encounter
--- OUTSIDE RECORDS SUMMARY | 2024-04-22 22:01 | XMS_ITS | Encounter Summary ---
Author Organization [facility] Address [address] [place] [address] Care Team Providers Care Applications Programmer Analyst Name Role Phone Diya Gifford MD Primary Care Provide r Reason for Referral * Radiology Services (Routine) - Closed Specialty Diagnoses / Procedures Referred By Ar salinas Referred To Contact Radiology Diagnoses Left shoulder pain Procedures MR SHOULDER WO CONTRAST LEFT Mau Rocha MD [address] [place] [address] Referral ID Status Reason Start Date Expiration Date Visits Re quested Visits Authorized [id number] Closed 05/05/2019 08/03/2019 1 1 Reason for Visit * Radiology Services (Routine) - Closed Specialty Diagnoses / Procedures Referred By Ar salinas Referred To Contact Radiology Diagnoses Left shoulder pain Procedures MR SHOULDER WO CONTRAST LEFT Mau Rocha MD [address] [place] [address] Referral ID Status Reason Start Date Expiration Date Visits Re quested Visits Authorized [id number] Closed 05/05/2019 08/03/2019 1 1 Encounter Details Date Type Department Care Team (Latest Contact Info) Description 07/29/2019 11:57 EST - 07/29/2019 23:59 EST Hospital Encounter [facility] [address] [place] [address] Left shoulder pain Discharge Disposition: Home or [...] Office Visit [facility] Interventional Pain 62 [facility] [place], [place] [phone] Percy Molina MD 62 [facility] [address] [place] [phone] 01/25/2026 12:00 EDT Office Visit [facility] Cancer Center Hematology & Oncology - [facility] [address] [place], [place] [phone] Jorge Lim MD 111 [facility], [facility], Level 2 [place] [phone] documented as of this encounter Procedures Procedure [...] region documented in this encounter Care Teams Applications Programmer Analyst Relationship Specialty Start Date End Date Diya Gifford MD [address] [address] PCP - General 07/26/19 documented as of this encounter
--- OUTSIDE RECORDS SUMMARY | 2024-04-22 22:01 | XMS_ITS | Encounter Summary ---
Author Organization [facility] Address [address] [place] [address] Care Team Providers Care Hand Bander Name Role Phone Unavailable Primary Care Provider Unavailabl e Encounter Details Date Type Department Care Team (Late st Contact Info) Description 10/13/2007 Before PRISM Converted Visit (Maple) [facility] - Maple conversion [address] [place] [address] Ruby Hall, PA-C 111 [facility], Level 5 [place] [phone] Social History Tobacco Use Types Packs/Day Years [...] them. She has also noticed some soft, belt builder hair on the cheeks and is concerned [...] Erin Hall PA-C - DD Job ID: [id number] Doc ID: [id number] cc: SYL Saucedo - Ruby Hall PA-C - dd Job ID: [id number] Doc ID: [id number] cc: SYL Sauecdo documented in this encounter Plan of Treatment Upcoming Encounters Date Type Department Care Team (Late st Contact Info) Description 04/26/2024 9:15 EDT Office Visit [facility] Interventional Pain 62 [place] [address] Percy Molina MD 62 [facility] [address] [place] [address] 01/25/2026 12:00 EDT Office Visit [facility] On[facility] - [address] [phone] Jorge Lim MD [address] [place] [address] Level 2 [place] [phone] documented as of this encounter Visit Diagnoses Not on filedocumented in this encounter
--- OUTSIDE RECORDS SUMMARY | 2024-04-22 22:01 | XMS_ITS | Encounter Summary ---
Author Organization [facility] Address [address] [place] [address] Care Team Providers Care Svp Digital Sales Food & Cooking Name Role Phone Diya Gifford MD Primary Care Provide r Dariana Juarez MD Unavailable [phone] Encounter Details Date Type Department Care Team (Late st Contact Info) Description 02/02/2020 Lab Requisition [facility] Pathology & Laboratory Medicine - [facility] [address] [place] [address] Liban Lewis MD [address] [place] [id number] Encounter for screening for malignant neoplasm of [...] Visit [facility] Interventional Pain [address] [place] [address] Percy Molina MD [address] [place] [address] 01/25/2026 12:00 EDT Office Visit [facility] Cancer Center Hematology & Oncology - [facility] [address] [place], [place] [phone] Jorge Lim MD 111 [facility], [facility], Level 2 [place] [address] documented as of this encounter Procedures Procedure Name Priority Date/Time Associated Diagnosis Comments PAP TEST Today 02/02/2020 17:22 EDT HPV DNA DETECTION WITH GENOTYPING, PCR Today 02/02/2020 17:22 EDT documented in this encounter Results * HUMAN PAPILLOMAVIRUS (HPV) DETECTION-HIGH RISK TYPES (02/02/2020 17:22 EDT) HPV other High Risk types, PCR Negative Negative 02/16/2020 8:30 EDT [facility] Comment:No E6 or E7 mRNA is detected from HPV types 16,18,31,33,35,39,45,51,52,56,58,59,66, and 68 by securities counselor mediated amplification. Papanicolaou smear specimen (specimen) CERVIX UTERI STRUCTURE / Unknown 02/02/2020 17:22 EDT 02/14/2020 13:02 EDT Liban Lewis MD MICROBIOLOGY - GENER AL ORDERABLES [facility] [address] [place] [address] * PAP TEST (02/02/2020 17:22 EDT) Specimens A. Cervix and/or Endocervix , ThinPrep Imaging System with Manual Evaluation 02/16/2020 8:30 EDT [facility] Specimen Adequacy Satisfactory for Evaluation - transformation zone component present 02/16/2020 8:30 EDT [facility] General Categorization Negative for intraepithelial lesion or malignancy 02/16/2020 8:30 EDT [facility] Attestation . 02/16/2020 8:30 EDT [facility] at 0830 Clinical History NONE 02/16/20 8:30 EDT [facility] HPV The result for the Human Papillomavirus (HPV) Detection-High Risk Types is Negative. No E6 or E7 mRNA is detected from HPV types 16,18,31,33,35,39 ,45,51,52,56,58,5 9,66, and 68 by securities counselor mediated amplification.Estrellita ting was performed on specimen [id number] and was resulted on 02/16/2020 0829 EDT by CHELLY, LAB INSTRUMENT RESULTS IN 02/16/2020 8:30 EDT [facility] Scanned Images 02/16/2020 8:30 EDT [facility] Papanicolaou smear specimen (specimen) CERVIX UTERI STRUCTURE / Unknown 02/02/2020 17:22 EDT 02/03/2020 9:45 EDT Liban Lewis MD PATHOLOGY ORDERABLES [facility] [address] [place] [address] documented in this encounter Visit Diagnoses Diagnosis Encounter for screening for malignant neoplasm of cervix Screening for malignant neoplasm of the cervix Encounter for screening for human papillomavirus (HPV) Special screening examination for human papillomavirus (HPV) documented in this encounter Care Teams Svp Digital Sales Food & Cooking Relationship Specialty Start Date End Date Diya Gifford MD [address] [place] [phone] PCP - General 07/26/19 Dariana Juarez MD [address] [place] [address] [address] [place] [address] Consulting Clinician Cardiovascular Disease 02/06/22 documented as of this encounter
--- OUTSIDE RECORDS SUMMARY | 2024-04-22 22:01 | XMS_ITS | Encounter Summary ---
Author Organization [facility] Address [address] [place] [address] Care Team Providers Care Cad Technician Name Role Phone Diya Gifford MD Primary Care Provide r Encounter Details Date Type Department Care Team (Late st Contact Info) Description 01/11/2020 Orders Only [facility] Hand & Upper Extremity Program - [address] [phone] Susan Mistry PA-C [address] [place] [address] Left shoulder pain, unspecified chronicity [...] [facility] Inter[facility] [address] [place], [place] [phone] Percy Molina MD 62 [facility] [address] [place] [address] 01/25/2026 12:00 EDT Office Visit [facility] Cancer Center Hematology & Oncology - [facility] [address] [place], [place] [phone] Jorge Lim MD 111 [facility], [address] [place] [phone] documented as of this encounter Visit Diagnoses Diagnosis Left shoulder pain, unspecified chronicity- Primary documented in this encounter Care Teams Cad Technician Relationship Specialty Start Date End Date Diya Gifford MD 4 [facility] [address] [place], [place] [address] PCP - General 07/26/19 documented as of this encounter
--- OUTSIDE RECORDS SUMMARY | 2024-04-22 22:01 | XMS_ITS | Encounter Summary ---
Author Organization [facility] Address [address] [place] [address] Care Team Providers Care Software Development Coordinator Name Role Phone Diya Gifford MD Primary Care Provide r Reason for Referral * Radiology Services (Routine) - Specialty Report Received Specialty Diagnoses / Procedures Referred By Abeac t Referred To Contact Diagnoses Neck pain Procedures XR CERVICAL SPINE 4-5 VIEWS Mike Coker MD [address] [place] [address] Referral ID Status Reason Start Date Expiration Date V isits Requested Visits Authorized [id number] Specialty Report Received 01/27/2020 1 1 Reason for Visit * Radiology Services (Routine) - Specialty Report Received Specialty Diagnoses / Procedures Referred By Ar salinas Referred To Contact Diagnoses Neck pain Procedures XR CERVICAL SPINE 4-5 VIEWS Mike Coker MD [address] [place] [address] Referral ID Status Reason Start Date Expiration Date V isits Requested Visits Authorized [id number] Specialty Report Received 01/27/2020 1 1 Encounter Details Date Type Department Care Team (Latest Contact Info) Description 01/31/2020 12:04 EDT - 01/31/2020 23:59 EDT Hospital Encounter [facility] Xray [address] [place] [address] Neck pain Discharge Disposition: Home or Self [...] Description 04/26/2024 9:15 EDT Office Visit [facility] Interventional Pain 62 [facility] [place], [place] [phone] Percy Molina MD 62 [facility] [address] [place] [address] 01/25/2026 12:00 EDT Office Visit [facility] Cancer Center Hematology & Oncology - [address] [phone] Jorge Lim MD [address] [place] [address], [address] 2 [place] [phone] documented as of this encounter Procedures Procedure [...] Cervicalgia documented in this encounter Care Teams Software Development Coordinator Relationship Specialty Start Date End Date Diya Gifford MD [address] [place] [address] PCP - General 07/26/19 documented as of this encounter
--- OUTSIDE RECORDS SUMMARY | 2024-04-22 22:01 | XMS_ITS | Encounter Summary ---
Author Organization [facility] Address [address] [place] [address] Care Team Providers Care Electrical Electronics Engineers Name Role Phone Diya Gifford MD Primary Care Provide r Reason for Visit * Reason Comments Pain * Consult (Routine) - Closed Specialty Diagnoses / Procedures Referred By Ar salinas Referred To Contact Orthopedic Surgery Diagnoses Left shoulder pain Diya Gifford MD [address] [place] [address] [facility] Ortho [place] [address] Referral ID Status Reason Start Date Expiration Date Visits Re quested Visits Authorized [id number] Closed 1 1 Encounter Details Date Type Department Care Team (Late st Contact Info) Description 01/31/2020 11:30 EDT Office Visit [facility] Spine Program [place] [address] Mike Coker MD 192 [facility] [place] [address] Neck pain of over 3 [...] Coker MD - 01/31/[address] [facility] SPINE PROGRAM CONSULTATION - 01/31/2020 PROBLEM [...] is considering surgery to be done at [facility] over the next several months, but [...] provider stephanie Coker MD / Dictation ID: [id number] cc: Diya Gifford MD, [facility], [address] [place] [address] Mau Rocha MD, [facility], [address] [place] [phone] Martin [place] MD, [facility], [address] [place] [address] documented in this encounter Plan of Treatment Upcoming Encounters Date Type Department Care Team (Late st Contact Info) Description 04/26/2024 9:15 EDT Office Visit [facility] Interventional Pain [address] [place] [address] Percy Molina MD 62 [facility] [address] [place] [address] 01/25/2026 12:00 EDT Office Visit [facility] Cancer Center Hematology & Oncology - [facility] [address] [place] [address] Jorge Lim MD 111 [facility], Level 2 [place] [address] documented as of this encounter Visit Diagnoses Diagnosis Neck pain of over 3 months duration- Primary documented in this encounter Care Teams Electrical Electronics Engineers Relationship Specialty Start Date End Date Diya Gifford MD 4 [facility] [address] [place] [address] PCP - General 07/26/19 documented as of this encounter
--- OUTSIDE RECORDS SUMMARY | 2024-04-22 22:01 | XMS_ITS | Encounter Summary ---
Author Organization [facility] Address [address] [place] [address] Care Team Providers Care Bessemer Regulator Name Role Phone Juan Luis Moore MD Primary Care Provider [phone] Encounter Details Date Type Department Care Team (Latest Contact Info) Description 08/01/2016 11:18 EST - 08/01/2016 20:25 EST Hospital Encounter [facility] Perioperative Services- [facility] [address] [place] [address] Juliano Penny MD [address] [place] [address] [address] [place] [address] Refractory obstruction of nasal airway [...] depressive disorder, single episode, unspecified-F32.9[ICD-10-CM] Z79.899 Other fpc (current) drug therapy-Z79.899[ICD-10-CM] documented in this encounter [...] Notes * Juliano Penny MD - 08/01/2016 7249 EST The preoperative history and physical which [...] patient stated she accepts those risks. [facility] consent forms were reviewed and I believe that informed consent was given; we will go ahead with the surgery as planned. 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 PROCEDURE: 1. Secondary septorhinoplasty through an open approach, CPT = 39298. 2. Composite graft from left ear to nose of conchal skin and cartilage, CPT = 70593. 3. Repair nasal vestibular stenosis (CPT = 93231) 4. In-fracture of the left inferior turbinate. (CPT = 60583) ANESTHESIA: General endotracheal. INDICATIONS: Marilin Allen is [...] left inferior turbinate was in-fractured with a Belknap elevator. Hemostasis was established with electrocautery. A [...] / Juliano Penny MD, FACS cn Confirmation: [id number] Dictation ID: [id number] cc: Portillo Moore MD documented in this [...] BRIEF OPERATIVE NOTE Surgeon: Calos Penny MD Artificial Limb Maker: Portillo Lester MD Pre-Op Diagnosis: Nasal obstruction, [...] [facility] Interventional Pain [address] [place] [address] Percy Molina MD 62 [facility] [address] [place] [address] 01/25/2026 12:00 EDT Office Visit [facility] Hematology & Oncology - [facility] [address] [place], [place] [phone] Jorge Lim MD 111 [facility], Level 2 [place] [phone] documented as of this encounter Procedures Procedure Name Priority Date/Time Associated Diagnosis Comments TEST, URINE STAT 08/01/2016 11:45 EST documented in this encounter Results * TEST, URINE (08/01/2016 11:45 EST) Result- Test, Ur Neg Neg 08/01/2016 12:11 EST [facility] Comment: NOTE: False negative results may occur in women who are beyond 5-8 weeks gestation. Diagnosis of should be based on a correlation of test results with typical clinical signs and symptoms. Urine specimen (specimen) URINE / Unknown 08/01/2016 11:45 EST 08/01/2016 12:05 EST Juliano Penny MD URINALYSIS ORDERABLE S [facility] [address] [place] [address] documented in this encounter Visit Diagnoses Diagnosis [...] on Thu08/01/16 at 1745, Until Thu08/01/16 at 222, Routine, Recovery (only) lactated ringers (LR) infusion [...] 180 (Given - Provid er: Mercy Colindres RN)1820 (Given - Provider: Mercy Colindres RN)185 (Given - Provider: Mercy Colidnres RN) haloperidol lactate (HALDOL) injection 1 mg 1 mg, intravenous, EVERY 6 HOURS PRN, Starting on Thu08/01/16 at 1951, Until Thu08/01/16 at 2228, nausea 1954 (Given - Provid er: Mercy Colindres RN) [...] 1951, Until Thu08/01/16 at 2228, Nausea, Routine 1955 (Given - Provid er: Mercy Colindres RN) [...] 08/2016 documented in this encounter Care Teams Bessemer Regulator Relationship Specialty Start Date End Date Juan Luis Moore MD PCP - General 02/04/16 07/25/19 documented as of this encounter
--- OUTSIDE RECORDS SUMMARY | 2024-04-22 22:01 | XMS_ITS | Encounter Summary ---
Author Organization [facility] Address [address] [place] [address] Care Team Providers Care Molecular Biology Professor Name Role Phone Diya Gifford MD Primary Care Provide r Reason for Visit * (Routine/Next Available) - Receiving Office to Obtain Authorization Specialty Diagnoses / Procedures Referred By Ar salinas Referred To Contact Procedures MR OUTSIDE IMAGES NEURO Imaging, External Referral ID Status Reason Start Date Expiration Date Visits Requested Visits Authorized [id number] Receiving Office to Obtain Authorization 08/02/2021 1 1 Encounter Details Date Type Department Care Team (Latest Contact Info) Description 07/19/2021 - 07/19/2021 23:59 EST Hospital Encounter [facility] Secondary Reads [place] Discharge Disposition: Home or [...] Info) Description 04/26/2024 9:15 EDT Office Visit [facility] Interventional Pain [address] [place], [place] [phone] Percy Molina MD 62 [facility] [address] [place] [address] 01/25/2026 12:00 EDT Office Visit [facility] Hematology & Oncology - [facility] [address] [place], [place] [phone] Jorge Lim MD 111 [facility], Level 2 [place] [phone] documented as of this encounter Procedures Procedure [...] on filedocumented in this encounter Care Teams Molecular Biology Professor Relationship Specialty Start Date End Date Diya Gifford MD [address] [place] [address] [address] [place], [place] [address] PCP - General 07/26/19 documented as of this encounter
--- OUTSIDE RECORDS SUMMARY | 2024-04-22 22:01 | XMS_ITS | Encounter Summary ---
Author Organization [facility] Address [address] [place] [address] Care Team Providers Care Network Associate Name Role Phone Diya Gifford MD Primary Care Provide r Encounter Details Date Type Department Care Team (Late st Contact Info) Description 09/23/2021 Transcribe Orders [facility] Non-Invasive Cardiology - [address] [address] Dariana Juarez MD [address] [place] [address] 1 [place] [address] Social History Tobacco Use Types [...] Info) Description 04/26/2024 9:15 EDT Office Visit [facility] Interventional Pain [address] [place], [place] [phone] Percy Molina MD 62 [facility] [address] [place] [address] 01/25/2026 12:00 EDT Office Visit [facility] Cancer Center Hematology & Oncology - [facility] [address] [place], [place] [phone] Jorge Lim MD 111 [facility], Level [address] [place] [phone] documented as of this encounter Visit Diagnoses Not on filedocumented in this encounter Care Teams Network Associate Relationship Specialty Start Date End Date Diya Gifford MD [address] [place] [address] [address] [place], [place] [address] PCP - General 07/26/19 documented as of this encounter
--- OUTSIDE RECORDS SUMMARY | 2024-04-22 22:01 | XMS_ITS | Encounter Summary ---
Author Organization [facility] Address [address] [place] [address] Care Team Providers Care Human Resources Manager Name Role Phone Juan Luis Moore MD Primary Care Provider [phone] Reason for Visit * Reason Comments Follow-up sx 08/01/16 Encounter Details Date Type Department Care Team (Late st Contact Info) Description 08/18/2016 11:15 EST Office Visit [facility] Plastic, Reconstructive & Cosmetic Surgery - [address], [address] [place] [address] Juliano Penny MD [address] [place] [address] Surgical wound infection, initial encounter (Primary [...] Notes * Juliano Penny MD - 08/18/2016 1110 EST SUBJECTIVE: Marilin Allen returns in followup [...] [facility] Interventional Pain 62 [facility] [place], [place] [phone] Percy Molina MD 62 [facility] [address] [place] [address] 01/25/2026 12:00 EDT Office Visit [facility] Cancer Center Hematology & Oncology - [facility] [address] [place], [place] [phone] Jorge Lim MD 111 [facility], Level 2 [place] [phone] documented as of this encounter Visit Diagnoses Diagnosis Surgical wound infection, initial encounter- Primary documented in this encounter Care Teams Human Resources Manager Relationship Specialty Start Date End Date Juan Luis Moore MD PCP - General 02/04/16 07/25/19 documented as of this encounter
--- OUTSIDE RECORDS SUMMARY | 2024-04-22 22:01 | XMS_ITS | Encounter Summary ---
Author Organization [facility] Address [address] [place] [address] Care Team Providers Care Credit Director Name Role Phone Dangelo Reynolds MD Primary Care Provider Un available Encounter Details Date Type Department Care Team (Latest Contact Info) Description 08/14/2014 15:05 EST - 08/14/2014 23:59 EST Hospital Encounter [address] [address] Unknown, Provider, Discharge Disposition: Home or Self [...] Code Departure Means Destination Home or Self Jail documented in this encounter Plan of Treatment Upcoming Encounters Date Type Department Care Team (Late st Contact Info) Description 04/26/2024 9:[address] [facility] Interventional Pain [address] [place] [address] Percy Molina MD 62 [facility] [address] [place] [address] 01/25/2026 12:00 EDT Office Visit [facility] Cancer Center Hematology & Oncology - [facility] [address] [place], [place] [phone] Jorge Lim MD 111 [facility], Level 2 [place] [phone] documented as of this encounter Visit Diagnoses Not on filedocumented in this encounter Care Teams Credit Director Relationship Specialty Start Date End Date Dangelo Reynolds MD PCP - General 07/29/10 02/03/16 documented as of this encounter
--- OUTSIDE RECORDS SUMMARY | 2024-04-22 22:01 | XMS_ITS | Encounter Summary ---
Author Organization [facility] Address [address] [place] [address] Care Team Providers Care Voice Engineer Name Role Phone Diya Gifford MD Primary Care Provide r Reason for Referral * Cardiology (Routine/Next Available) - Receiving Office to Obtain Authorization Specialty Diagnoses / Procedures Referred By Ar salinas Referred To Contact Diagnoses Arrhythmia Procedures EKG 12-LEAD Dariana Juarez MD [address] [place] [phone] Referral ID Status Reason Start Date Expiration Date Visits Requested Visits Authorized [id number] Receiving Office to Obtain Authorization 09/23/2021 1 1 Encounter Details Date Type Department Care Team (Late st Contact Info) Description 09/23/2021 Transcribe Orders [facility] Non-Invasive Cardiology - [address] [phone] Dariana Juarez MD [address] [place] [phone] Arrhythmia (Primary Dx) Social History Tobacco [...] [facility] Interventional Pain [address] [facility] [place] [address] Percy Molina MD [address] [facility] [address] [place] [address] 01/25/2026 12:00 EDT Office Visit [facility] Hematology & Oncology - [address] [address] Jorge Lim MD [address] [facility], Level 2 [place] [phone] documented as of this encounter Results * EKG 12-LEAD (09/23/2021 10:39 EDT) 09/23/2021 10:3 9 EDT Narrative [facility] EKG - 09/25/2021 11:15 EDT ? The ? Test Date: ?2021-09-23 Pat Name: ? THONG HESTER ? Department: ?? [id number] ? Room: ? Gender: ? Female ? Truck Sales Representative: ?? : ?1975 ? Requested By: ZITA West Order Number: [id number] ? Reading MD: ?? JONAH ANDERSEN SA MD ? Measurements Intervals ?[place] ? Rate: ? 93 ? P: ?65 [place]: ? 141 ?QRS: ?55 QRSD: ? 86 [...] Jonah Muñoz Sa, MD - 09/25/2021 The Test Date: 2021-09-23 Pat Name: THONG HESTER Department: [id number] Room: Gender: Female Truck Sales Representative: : 1975 Requested By: ZITA West Order Number: [id number] Reading MD: JONAH HUSAIN Measurements Intervals [place] Rate: 93 P: 65 [place]: 141 QRS: 55 QRSD: 86 T: 49 QT: 350 QTc: 437 Interpretive Statements SINUS RHYTHM Automated Interpretation. Provider Interpretation to follow. No previous ECG available for comparison I reviewed the tracing and have either agreed or edited the findings inthis report. Electronically Signed On 09-25-2021 11:15:54 EDT by JONAH CANSECO SA, MD. Dariana Juarez MD CARDIAC ECG ORDERABL ES [facility] EKG documented in this encounter Visit Diagnoses Diagnosis Arrhythmia Cardiac dysrhythmia, unspecified Arrhythmia- Primary Cardiac dysrhythmia, unspecified documented in this encounter Care Teams Voice Engineer Relationship Specialty Start Date End Date Diya Gifford MD [address] [facility] [address] [place] [address] PCP - General 07/26/19 documented as of this encounter
--- OUTSIDE RECORDS SUMMARY | 2024-04-22 22:01 | XMS_ITS | Encounter Summary ---
Author Organization [facility] Address [address] [place] [address] Care Team Providers Care Machine Cementer Name Role Phone Diya Gifford MD Primary Care Provide r Reason for Referral * Radiology Services (Routine/Next Available) - Closed Specialty Diagnoses / Procedures Referred By Ar salinas Referred To Contact Radiology Diagnoses Cervical pain Left arm pain Procedures MR CERVICAL SPINE WO CONTRAST Zina Thompson PA-C [address] [facility] [address] [place] [address] [facility] Referral ID Status Reason Start Date Expiration Date Visits Re quested Visits Authorized [id number] Closed 10/08/2021 1 1 Reason for Visit * Reason Comments Neck Pain New Patient Visit * Referral (Routine) - Authorization Not Required Specialty Diagnoses / Procedures Referred By Ar salinas Referred To Contact Orthopedic Surgery Diagnoses Cervicalgia Pain in left shoulder Elle Kelly PA [address] [place] [address] [facility] [place] [place] [facility] [address] [place] [address] Referral ID Status Reason Start Date Expiration Date Visits Requested Visits Authorized [id number] Authorization Not Required 1 1 Encounter Details Date Type Department Care Team (Late st Contact Info) Description 10/08/2021 14:15 EDT Office Visit [facility] - [facility] Spine Medicine [address] [place] [address] Zina Thompson PA-C [address] [facility] [address] [place] [address] Cervical pain (Primary Dx); Left [...] Zina Thompson PA-C - 10/08/2021 1415 EDT [facility] Orthopedic Spine [phone] Medical Decision Making Marilin is a pleasant [...] has [facility], but does not feel like they have been helping her much, only applying warm compresses and a TENS unit. Referral was placed to PT at [facility]. She did ask about pain management. [...] shoulder pain. She was being evaluated at [facility] for a suspected shoulder issue but [...] flex 4/5 4/5 Finger abd 5/5 5/5 Cotton Ginner 5/5 5/5 Reflexes: Right Left Biceps C5-6 1/4 1/4 BR C5-6 1/4 1/4 Triceps C7-8 0/4 0/4 Motta???s neg + Sprulings: Not tested CC: Primary Care Provider: Diya Gifford 4 [facility] [address] [facility] [address] Referring Provider: RICKY Murillo DICTATION WAS USED FOR NOTE COMPLETION. PLEASE EXCUSE ALL MISSPELLINGS AND PUNCTUATION ERRORS. Zina Thompson PA-C 10/08/21 [facility] Orthopedic Spine and Neurosurgery documented in this encounter Plan of Treatment Upcoming Encounters Date Type Department Care Team (Late st Contact Info) Description 04/26/2024 9:15 EDT Office Visit [facility] Interventional Pain [address] [facility] [place] [address] Percy Molina MD [address] [facility] [address] [place] [address] 01/25/2026 12:00 EDT Office Visit [facility] Hematology & Oncology - [facility] [address] [place] [address] Jorge Lim MD 111 [facility], [facility], Level 2 [place] [address] documented as of this encounter Results * [...] foraminal stenosis. Zina Thompson PA-C Alejo MRI ORDERABLES * XR CERVICAL SPINE 4-5 VIEWS (10/08/2021 [...] lower cervical facet arthrosis ispresent. Rebekah Paulson NP IMG DIAGNOSTIC IMAGI NG ORDERABLES documented in [...] 22 added in this encounter Care Teams Machine Cementer Relationship Specialty Start Date End Date Diya Gifford MD [address] [place] [phone] PCP - General 07/26/19 documented as of this encounter
--- OUTSIDE RECORDS SUMMARY | 2024-04-22 22:01 | XMS_ITS | Encounter Summary ---
Author Organization [facility] Address [address] [place] [address] Care Team Providers Care Tooling Inspector Name Role Phone Juan Luis Moore MD Primary Care Provider [phone] Encounter Details Date Type Department Care Team (Late st Contact Info) Description 02/14/2016 Results Only [facility] [phone] Liban Lewis MD [address] [place] [phone] Social History Tobacco Use Types Packs/Day Years [...] Description 04/26/2024 9:15 EDT Office Visit [facility] Interventional Pain [address] [place] [address] Percy Molina MD [address] [facility] [address] [place] [address] 01/25/2026 12:00 EDT Office Visit [facility] Hematology & Oncology - [facility] [address] [place], [place] [phone] Jorge Lim MD 111 [facility] 2 [place] [phone] documented as of this encounter Procedures Procedure [...] ? THONG HESTER ? Accession #: ? [id number] ? : ? 1975 (Age: 41) ??F ?Collect Date: ? 02/14/2016 ? Location: ? [facility] ? Receive Date: ? 02/18/2016 ? Provider: LIBAN LEWIS MD Copy to: ? Final Report SPECIMEN ADEQUACY ? Satisfactory for Evaluation - transformation zone component present GENERAL CATEGORIZATION ? Epithelial Cell Abnormality INTERPRETATION ? Squamous Cell Abnormality - Atypical squamous cells, undetermined significance (ASC-US). EDUCATIONAL NOTES/RECOMMENDAT IONS ? [facility] recommends following ASCCP's 2012 Updated Consensus [...] types 16,18,31,33,35, 39,45,51,52,56,58 ,59,66, and 68 by developing machine tender mediated amplification. Comments Document reviewed and electronically signed by: ? System Interface ? Report date: 02/27/2016 By the signature above, the attending physician certifies that he/she has personally conducted a gross and/or microscopic examination of the described specimens and rendered or confirmed the above diagnosis. End of Report [facility] 02/14/2016 02/18/2016 Liban Lewis MD PATHOLOGY ORDERABLES [facility] [address] [place] [address] documented in this encounter Visit Diagnoses Not on filedocumented in this encounter Care Teams Tooling Inspector Relationship Specialty Start Date End Date Juan Luis Moore MD PCP - General 02/04/16 07/25/19 documented as of this encounter
--- OUTSIDE RECORDS SUMMARY | 2024-04-22 22:01 | XMS_ITS | Encounter Summary ---
Author Organization [facility] Address [address] [place] [address] Care Team Providers Care Raymond Mill Operator Name Role Phone Diya Gifford MD [...] [facility] [place] Interventional Pain [address] [place] [address] Percy Molina MD [address] [place] [address] [address] [place] [address] 01/25/2026 12:00 EDT Office Visit [facility] Cancer Center Hematology & Oncology - [facility] [address] [place], [place] [address] Jorge Lim MD 111 [facility], Level [address] [place] [phone] documented as of this encounter Visit Diagnoses Not on filedocumented in this encounter Care Teams Raymond Mill Operator Relationship Specialty Start Date End Date Diya Gifford MD [address] [place] [address] [address] [place], [place] [address] PCP - General 07/26/19 documented as of this encounter
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
--- OUTSIDE RECORDS SUMMARY | 2024-04-22 22:01 | XMS_ITS | Encounter Summary ---
Author Organization [facility] Address [address] [place] [address] Care Team Providers Care Shelver Name Role Phone Juan Luis Moore MD Primary Care Provider [phone] Encounter Details Date Type Department Care Team (Late st Contact Info) Description 06/09/2017 Results Only [facility] [phone] Liban Lewis MD [address] [place] [phone] Social History Tobacco Use Types Packs/Day Years [...] Info) Description 04/26/2024 9:15 EDT Office Visit [facility] Interventional Pain [address] [place] [address] Percy Molina MD 62 [facility] [address] [place] [address] 01/25/2026 12:00 EDT Office Visit [facility] Hematology & Oncology - [facility] [place] [address] [place] [address] Jorge Lim MD [address] [place] [address] [address] [place] [phone] documented as of this encounter Procedures Procedure [...] ? THONG HESTER ? Accession #: ? [id number] ? : ? 1975 (Age: 42) ??F ?Collect Date: ? 06/09/2017 ? Location: ? [facility] ? Receive Date: ? 06/10/2017 ? Provider: LIBAN ELWIS MD Copy to: ? Final Report SPECIMEN [...] Document reviewed and electronically signed by: ? MAGDALENA Eubanks(ASCP) ? Report ??Date: 06/19/2017 13:57 HPV with Pap Test ? Date Ordered: ? 06/19/2017 ? Status: ?? Signed Out ?Date Complete: ? 06/24/2017 ? By: ??System Interface ? Date Reported: ? 06/24/2017 ? Interpretation RESULT: Negative for HPV. No E6 or E7 mRNA is detected from HPV types 16,18,31,33,35, 39,45,51,52,56,58, 59,66, and 68 by footwear factory worker mediated amplification. Comments Document reviewed and electronically signed by: ? System Interface ? Report date: 06/24/2017 By the signature above, the attending physician certifies that he/she has personally conducted a gross and/or microscopic examination of the described specimens and rendered or confirmed the above diagnosis. End of Report [facility] 06/09/2017 06/10/2017 Liban Lewis MD PATHOLOGY ORDERABLES Performing Organization Address City/State/[facility] Co de Phone Number [facility] [address] [place] [address] documented in this encounter Visit Diagnoses Not on filedocumented in this encounter Care Teams Shelver Relationship Specialty Start Date End Date Juan Luis Moore MD PCP - General 02/04/16 07/25/19 documented as of this encounter
--- OUTSIDE RECORDS SUMMARY | 2024-04-22 22:01 | XMS_ITS | Encounter Summary ---
Author Organization [facility] Address [address] [place] [address] Care Team Providers Care Director Of Sales And Marketing Name Role Phone Juan Luis Moore MD Primary Care Provider [phone] Reason for Referral * Consult (Routine) - Closed Specialty Diagnoses / Procedures Referred By Ar salinas Referred To Contact Otolaryngology Diagnoses Right chronic serous otitis media Unilateral complete cleft palate with cleft lip Juliano Penny MD [address] [place] [phone] [facility] [address] [place] [address] Referral ID Status Reason Start Date Expiration Date V isits Requested Visits Authorized [id number] Closed Specialty Services Required 02/05/2016 1 1 Question Answer Reason for Request: chronic otitis * Surgery (Routine/Next Available) - Closed Specialty Diagnoses / Procedures Referred By Ar salinas Referred To Contact Plastic Surgery Diagnoses 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 Procedures MD EAR CARTILAGE GRAFT TO FACE MD REBEKA NOSE/CLEFT LIP/TIP,SEPTUM Juliano Penny MD [address] [place] [address] [place] [phone] Juliano Penny MD [address] [place] [address] [place] [phone] Referral ID Status Reason Start Date Expiration Date V isits Requested Visits Authorized Closed Specialty Services Required 02/05/2016 1 1 Question Answer Reason for Request: OR Comments OR Scheduling: Procedure: Ear Cartilage Graft 13089 and Septo-rhinoplasty 11968, Anesthesia = General duration = 3 hr, Location = [facility] OR / Outpatient f/u = [...] W/INTERP&POSTPROC DIFF WORK STATION Juliano Penny MD [address] [place] [address] [place] [phone] Referral ID Status Reason Start Date Expiration Date Visits Re quested Visits Authorized [id number] Closed 02/05/2016 1 1 Reason for Visit * Reason Comments Cleft Lip and/or Palate * Consult (Routine) - Closed Specialty Diagnoses / Procedures Referred By Ar salinas Referred To Contact Plastic Surgery Diagnoses Cleft palate, unspecified Juan Luis Moore MD [address] [address] Juliano Penny MD [address] [place] [address] [place] [phone] Referral ID Status Reason Start Date Expiration Date Visits Re quested Visits Authorized [id number] Closed 12/18/2015 1 1 Encounter Details Date Type Department Care Team ([facility] st Contact Info) Description 02/05/2016 9:00 EDT Office Visit [facility] Plastic, Reconstructive & Cosmetic Surgery - [address], [address] [place] [address] Juliano Penny MD [address] [facility] [address] [place] [phone] Unilateral complete cleft palate with cleft [...] nose * Juliano Penny MD - 02/05/2016 0954 EDT Marilin Allen is a 41 y.o. [...] this patient; 25 minutes was spent in [id number] counseling and coordination of care. Juliano Penny Jr., MD FACS lamp cleaner and Pediatrics Division of Plastic Surgery [facility] documented in this encounter Plan of Treatment Upcoming Encounters Date Type Department Care Team (Late st Contact Info) Description 04/26/2024 9:15 EDT Office Visit [facility] Interventional Pain [address] [place], [place] [phone] Percy Molina MD 62 [facility] [address] [place] [address] 01/25/2026 12:00 EDT Office Visit [facility] Hematology & Oncology - [facility] [address] [place], [place] [address] Jorge Lim MD 111 [facility], Level 2 [place] [phone] Scheduled Orders Name Type Priority Associated Diagnoses [...] 03/19/2022 added in this encounter Care Teams Director Of Sales And Marketing Relationship Specialty Start Date End Date Juan Luis Moore MD PCP - General 02/04/16 07/25/19 documented as of this encounter
--- OUTSIDE RECORDS SUMMARY | 2024-04-22 22:01 | XMS_ITS | Encounter Summary ---
Author Organization [facility] Address [address] [place] [address] Care Team Providers Care Embedded Systems Engineer Name Role Phone Dangelo Reynolds MD Primary Care Provider Un available Encounter Details Date Type Department Care Team (Late st Contact Info) Description 07/19/2013 Results Only [facility] Laboratory Services - [facility] [address] [place], [place] [address] Marleen Head, [address] [place], [place] [phone] Social History Tobacco Use Types Packs/Day Years Used Date Smoking Tobacco: Never Assessed Sex and Gender Information Value Date Recorded Sex Assigned at Female 09/21/2023 8:38 EDT Gender Identity Female 06/08/2019 10:16 EST Sexual Orientation Not on file documented as of this encounter Plan of Treatment Upcoming Encounters Date Type Department Care Team (Late st Contact Info) Description 04/26/2024 9:15 EDT Office Visit [facility] Interventional Pain [address] [facility] [place] [address] Percy Molina MD [address] [facility] [address] [place] [address] 01/25/2026 12:00 EDT Office Visit [facility] Cancer Center Hematology & Oncology - [facility] [address] [place], [place] [phone] Jorge Lim MD [address] [place] [address] [address] [place] [address] documented as of this encounter [...] ? THONG HESTER ? Accession #: ? [id number] ? : ? 1975 (Age: 38) ??F ?Collect Date: ? 07/19/2013 ? Location: ? [facility] ? Receive Date: ? 07/21/2013 ? Provider: MARLEEN HEAD [facility] Copy to: ? Final Report SPECIMEN [...] 33,35,39,45,51,52, 56,58,59,66, and 68 is detected by respiratory therapy instructor mediated amplification. High and intermediate risk HPV [...] of Report DOUGLAS ALEMAN 07/19/2013 07/21/2013 Marleen Ashly CNAriadne PATHOLOGY ORDERABLES Performing Organization Address City/State/[facility] Co de Phone Number [facility] [address] [place] [address] documented in this encounter Visit Diagnoses Not on filedocumented in this encounter Care Teams Embedded Systems Engineer Relationship Specialty Start Date End Date Dangelo Reynolds MD PCP - General 07/29/10 02/03/16 documented as of this encounter
--- OUTSIDE RECORDS SUMMARY | 2024-04-22 22:01 | XMS_ITS | Encounter Summary ---
Author Organization [facility] Address [address] [place] [address] Care Team Providers Care Geologist Petroleum Name Role Phone Juan Luis Moore MD Primary Care Provider [phone] Reason for Visit * (Routine) - Receiving Office to Obtain Authorization Specialty Diagnoses / Procedures Referred By Ar salinas Referred To Contact Procedures XR OUTSIDE IMAGES SANDI Unknown, ProviderMD Referral ID Status Reason Start Date Expiration Date Visits Requested Visits Authorized [id number] Receiving Office to Obtain Authorization 11/16/2019 1 1 Encounter Details Date Type Department Care Team (Late st Contact Info) Description 05/05/2019 Hospital Encounter [facility] Radiology - Main [place] [address] [place] [address] Social History Tobacco Use Types [...] [facility] [address] [place] [address] Percy Molina MD [address] [facility] [address] [place] [address] 01/25/2026 12:00 EDT [facility] On[facility] - [facility] [address] [place], [place] [phone] Jorge Lim MD [address] [facility], Level 2 [place] [phone] documented as of this encounter Procedures Procedure Name Priority Date/Time Associated Diagnosis Comments XR OUTSIDE IMAGES MSK Routine 11/16/2019 11:58 EDT documented in this encounter Results * XR OUTSIDE IMAGES MSK (11/16/2019 11:58 EDT) Narrative CHARISSA - 11/16/2019 11:58 EDT This is a non-reportable exam. Physician Fa_General IMG OTHER IMAGIN G ORDERABLES Performing Organization Address City/State/[facility] Co de Phone Number CASTRO documented in this encounter Visit Diagnoses Not on filedocumented in this encounter Care Teams Geologist Petroleum Relationship Specialty Start Date End Date Juan Luis Moore MD PCP - General 02/04/16 07/25/19 documented as of this encounter
--- OUTSIDE RECORDS SUMMARY | 2024-04-22 22:01 | XMS_ITS | Encounter Summary ---
Author Organization [facility] Address [address] [place] [address] Care Team Providers Care Yard Switcher Name Role Phone Dangelo Reynolds MD Primary Care Provider Un available Encounter Details Date Type Department Care Team (Late st Contact Info) Description 02/05/2015 Results Only [facility]- PRISM [phone] Liban Lewis MD [address] [place] [address] Social History Tobacco Use Types Packs/Day Years [...] Description 04/26/2024 9:[address] [facility] Interventional Pain 62 [facility] [place] [address] Percy Molina MD 62 [facility] [address] [place] [address] 01/25/2026 12:00 EDT Office Visit [facility] Hematology & Oncology - [facility] [address] [place], [place] [phone] Jorge Lim MD 111 [facility] 2 [place] [phone] documented as of this encounter Procedures Procedure [...] ? THONG HESTER ? Accession #: ? [id number] ? : ? 1975 (Age: 40) ??F ?Collect Date: ? 02/05/2015 ? Location: ? [facility] ? Receive Date: ? 02/07/2015 ? Provider: LIBAN LEWIS MD Copy to: ? Final Report SPECIMEN ADEQUACY ? Satisfactory for Evaluation - transformation zone component present GENERAL CATEGORIZATION ? Epithelial Cell Abnormality INTERPRETATION ? Squamous Cell Abnormality - Atypical squamous cells, undetermined significance (ASC-US). EDUCATIONAL NOTES/RECOMMENDAT IONS ? [facility] recommends following ASCCP's 2012 Updated Consensus Guidelines [...] types 16,18,31,33,35, 39,45,51,52,56,58 ,59,66, and 68 by dental front office assistant mediated amplification. Comments Document reviewed and electronically signed by: ? System Interface ? Report date: 02/15/2015 By the signature above, the attending physician certifies that he/she has personally conducted a gross and/or microscopic examination of the described specimens and rendered or confirmed the above diagnosis. End of Report [facility] 02/05/2015 02/07/2015 Liban Lewis MD PATHOLOGY ORDERABLES [facility] [address] [place] [address] documented in this encounter Visit Diagnoses Not on filedocumented in this encounter Care Teams Yard Switcher Relationship Specialty Start Date End Date Dangelo Reynolds MD PCP - General 07/29/10 02/03/16 documented as of this encounter
--- OUTSIDE RECORDS SUMMARY | 2024-04-22 22:01 | XMS_ITS | Encounter Summary ---
Author Organization [facility] Address [address] [place] [address] Care Team Providers Care Technical Advisor Name Role Phone Juan Luis Moore MD Primary Care Provider [phone] Encounter Details Date Type Department Care Team (Late st Contact Info) Description 02/29/2016 Results Only Imaging [facility] Plastic, Reconstructive & Cosmetic Surgery - [address], [address] [place], [place] [phone] Juliano Penny MD 354 [facility] [address] [place] [address] Social History Tobacco Use Types Packs/Day [...] Info) Description 04/26/2024 9:15 EDT Office Visit [facility] Interventional Pain 62 [facility] [place] [address] Percy Molina MD 62 [facility] [address] [place] [address] 01/25/2026 12:00 EDT Office Visit [facility] [place] Hematology & Oncology - Main [place] [address] [place] [address] Jorge Lim MD [address] [place] [address], Level 2 [place] [phone] Pending Results Name Type Priority Associated Diagnoses Date /Time OUTSIDE IMAGES - CT NEURO Imaging 02/29/2016 10:28 EDT documented as of this encounter Visit Diagnoses Not on filedocumented in this encounter Care Teams Technical Advisor Relationship Specialty Start Date End Date Juan Luis Moore MD PCP - General 02/04/16 07/25/19 documented as of this encounter
--- OUTSIDE RECORDS SUMMARY | 2024-04-22 22:01 | XMS_ITS | Encounter Summary ---
Author Organization [facility] Address [address] [place] [address] Care Team Providers Care Principal Software Architect Name Role Phone Juan Luis Moore MD Primary Care Provider [phone] Reason for Visit * Reason Comments Post-OP Follow Up Encounter Details Date Type Department Care Team (Late st Contact Info) Description 08/07/2016 11:00 EST Office Visit [facility] Plastic, Reconstructive & Cosmetic Surgery - [address], [address] [place] [address] Cindy Hudson PA-C [address] [place] [phone] Status post nasal surgery (Primary Dx) [...] of this encounter Progress Notes * Juliano Pneny MD - 08/07/2016 1100 EST SUBJECTIVE: Marilin [...] Office Visit [facility] Interventional Pain [address] [place] [address] Percy Molina MD 62 [facility] [address] [place] [address] 01/25/2026 12:00 EDT Office Visit [facility] Hematology & Oncology - [address] [phone] Jorge iLm MD 111 [facility], Level 2 [place] [phone] documented as of this encounter Visit Diagnoses Diagnosis Status post nasal surgery- Primary documented in this encounter Care Teams Principal Software Architect Relationship Specialty Start Date End Date Juan Luis Moore MD PCP - General 02/04/16 07/25/19 documented as of this encounter
--- OUTSIDE RECORDS SUMMARY | 2024-04-22 22:01 | XMS_ITS | Encounter Summary ---
Author Organization [facility] Address [address] [place] [address] Care Team Providers Care Production Counter Name Role Phone Juan Luis Moore MD Primary Care Provider [phone] Reason for Visit * Reason Comments Follow-up Encounter Details Date Type Department Care Team (Late st Contact Info) Description 08/26/2016 15:15 EST Office Visit [facility] Plastic, Reconstructive & Cosmetic Surgery - [address], [address] [place], [place] [phone] Juliano Penny MD [address] [place] [phone] Status post nasal surgery (Primary Dx) [...] Notes * Juliano Penny MD - 08/26/2016 1519 EST SUBJECTIVE: Marilin Allen returns in followup [...] Info) Description 04/26/2024 9:15 EDT Office Visit [facility] Interventional Pain 62 [facility] [place] [address] Percy Molina MD 62 [facility] [address] [place] [address] 01/25/2026 12:00 EDT Office Visit [facility] Hematology & Oncology - [address] [phone] Jorge Lim MD [address] [place] [address], Level 2 [place] [address] documented as of this encounter Visit Diagnoses Diagnosis Status post nasal surgery- Primary documented in this encounter Care Teams Production Counter Relationship Specialty Start Date End Date Juan Luis Moore MD PCP - General 02/04/16 07/25/19 documented as of this encounter
--- OUTSIDE RECORDS SUMMARY | 2024-04-22 22:01 | XMS_ITS | Encounter Summary ---
Author Organization [facility] Address [address] [place] [address] Care Team Providers Care Cigarette Inspector Name Role Phone Unavailable Primary Care Provider Unavailabl e Encounter Details Date Type Department Care Team (Late st Contact Info) Description 04/08/2006 Before PRISM Converted Visit ([facility]) [facility] - Maple conversion [address] [place] [address] Jeet Guan MD Social History Tobacco Use Types Packs/Day Years Used Date Smoking Tobacco: Never Assessed Sex and Gender Information Value Date Recorded Sex Assigned at Female 09/21/2023 8:38 EDT Gender Identity Female 06/08/2019 10:16 EST Sexual Orientation Not on file documented as of this encounter Progress Notes * Jeet Gaun MD - 07/03/2009 0604 EST DIVISION OF [...] Guan MD A - chr Job ID: [id number] Document ID: [id number] cc: Dangelo Reynolds MD documented in this encounter Plan of Treatment Upcoming Encounters Date Type Department Care Team (Late st Contact Info) Description 04/26/2024 9:15 EDT Office Visit [facility] Interventional Pain 62 [facility] [place] [address] Percy Molina MD 62 [facility] [address] [place] [address] 01/25/2026 12:00 EDT Office Visit [facility] Hematology & Oncology - [facility] [address] [place], [place] [phone] Jorge Lim MD 111 [facility], Level 2 [place] [phone] documented as of this encounter Visit Diagnoses Not on filedocumented in this encounter
--- OUTSIDE RECORDS SUMMARY | 2024-04-22 22:01 | XMS_ITS | Encounter Summary ---
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 In that note, Dr. Celeste described removing [...] Signed by Jeet Guan MD 04/27/2006 16:16 ADaLefty Kam MD Jeet Guan MD - Jeet Guan MD A - [facility] Job ID: [id number] Document ID: [id number] cc: Ray Brice, ENRICO Reynolds MD documented in this encounter Plan of Treatment Upcoming Encounters Date Type Department Care Team (Late st Contact Info) Description 04/26/2024 9:15 EDT Office Visit [facility] Interventional Pain 62 [place] [address] Percy Molina MD 62 [facility] [address] [place] [phone] 01/25/2026 12:00 EDT Office Visit [facility] Hematology & Oncology - [facility] [address] [place], [place] [address] Jorge Lim MD 111 [facility] 2 [place] [phone] documented as of this encounter Visit Diagnoses Not on filedocumented in this encounter
--- OUTSIDE RECORDS SUMMARY | 2024-04-22 22:01 | XMS_ITS | Encounter Summary ---
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 This was done at [facility], but a copy was in our [...] Description 04/26/2024 9:[address] [facility] Interventional Pain [address] [place], [place] [phone] Percy Molina MD [address] [facility] [address] [place] [address] 01/25/2026 12:00 EDT Office Visit [facility] Hematology & Oncology - [facility] [address] [place], [place] [phone] Jorge Lim MD 111 [facility], Level 2 [place] [phone] documented as of this encounter Visit Diagnoses [...] 05/09/2022 added in this encounter Care Teams Lacquer Sprayer Relationship Specialty Start Date End Date Juan Luis Moore MD PCP - General 02/04/16 07/25/19 documented as of this encounter
--- OUTSIDE RECORDS SUMMARY | 2024-04-22 22:01 | XMS_ITS | Encounter Summary ---
Author Organization [facility] Address [address] [place] [address] Care Team Providers Care Mica Paster Name Role Phone Dangelo Reynolds MD Primary Care Provider Un available Encounter Details Date Type Department Care Team (Late st Contact Info) Description 08/14/2014 Results Only [facility] Laboratory Services - [facility] ([facility] [address] [place], [place] [address] Marleen Head, [address] [place], [place] [phone] Social History Tobacco Use Types Packs/Day Years Used Date Smoking Tobacco: Never Assessed Sex and Gender Information Value Date Recorded Sex Assigned at Female 09/21/2023 8:38 EDT Gender Identity Female 06/08/2019 10:16 EST Sexual Orientation Not on file documented as of this encounter Plan of Treatment Upcoming Encounters Date Type Department Care Team (Late st Contact Info) Description 04/26/2024 9:15 EDT Office Visit [facility] Interventional Pain 62 [facility] [place] [address] Percy Molina MD 62 [facility] [address] [place] [address] 01/25/2026 12:00 EDT [facility] H[facility] & Oncology - [facility] [address] [place], [place] [phone] Jorge Lim MD [address] [place] [address] 2 [place] [address] documented as of this encounter [...] ng unformatted reports. Name: ? THONG HESTER Adriane ? Accession #: ? [id number] ? : ? 1975 (Age: 39) ??F ?Collect Date: ? 08/14/2014 ? Location: ? [facility] ? Receive Date: ? 08/16/2014 ? Provider: MARLEEN HEAD [facility] Copy to: ? Final Report SPECIMEN ADEQUACY ? Satisfactory for Evaluation - transformation zone component present GENERAL CATEGORIZATION ? Epithelial Cell Abnormality INTERPRETATION ? 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 EDUCATIONAL NOTES/RECOMMENDATI ONS ? [facility] recommends following ASCCP's 2012 Updated Consensus [...] 33,35,39,45,51,52, 56,58,59,66, and 68 is detected by secondary connector armature mediated amplification. High and intermediate risk HPV [...] confirmed the above diagnosis. End of Report [facility] 08/14/2014 08/16/2014 Marleen Head [facility] PATHOLOGY ORDERABLES [facility] [address] [place] [address] documented in this encounter Visit Diagnoses Not on filedocumented in this encounter Care Teams Mica Paster Relationship Specialty Start Date End Date Dangelo Reynolds MD PCP - General 07/29/10 02/03/16 documented as of this encounter
--- OUTSIDE RECORDS SUMMARY | 2024-04-22 22:01 | XMS_ITS | Encounter Summary ---
Author Organization [facility] Address [address] [place] [address] Care Team Providers Care Network Support Analyst Name Role Phone Diya Gifford MD Primary Care Provide r Encounter Details Date Type Department Care Team (Late st Contact Info) Description 12/06/2020 Abstract [facility] Dermatology [address] [place] [address], [place] [address] Molly Singer MD 111 [facility], [facility] 5 [place] [address] Social History Tobacco Use Types [...] referral to dermatology. Referral was sent from [facility] for skin lesion of the face. documented in this encounter Plan of Treatment Upcoming Encounters Date Type Department Care Team (Late st Contact Info) Description 04/26/2024 9:15 EDT Office Visit [facility] Interventional Pain [address] [place], [place] [phone] Percy Molina MD [address] [place] [address] 01/25/2026 12:00 EDT Office Visit [facility] [place] Hematology & Oncology - [facility] [address] [place], [place] [phone] Jorge Lim MD [address] [facility], [facility], Level 2 [place] [phone] documented as of this encounter Visit Diagnoses [...] 03/19/2022 added in this encounter Care Teams Network Support Analyst Relationship Specialty Start Date End Date Diya Gifford MD 4 [facility] [address] [place] [address] PCP - General 07/26/19 documented as of this encounter
--- OUTSIDE RECORDS SUMMARY | 2024-04-22 22:01 | XMS_ITS | Encounter Summary ---
Author Organization [facility] Address [address] [place] [address] Care Team Providers Care Property Economist Name Role Phone Dangelo Reynolds MD Primary Care Provider Un available Encounter Details Date Type Department Care Team (Latest Contact Info) Description 04/16/2011 14:40 EDT - 04/16/2011 23:59 EDT Hospital Encounter [facility] Neurophysiology - [facility] [address] [place] [address] Unknown, Provider, Nader Funez MD Emg, MD [...] Code Departure Means Destination Home or Self Prison documented in this encounter Procedure Notes * Nader Funez MD - 04/18/2011 2238 EDT NEUROLOGICAL HEALTHCARE SERVICES ELECTRODIAGNOSTIC MEDICINE CONSULTATION SERVICE DATE: 04/16/2011 Dangelo Reynolds MD [address] Reynolds: Thank you for your [...] P - MS Job ID: Doc ID: [id number] Ext Doc ID: [id number] cc: Dangelo Reynolds MD * Lead Fire Protection Engineer, Scan - 04/18/2011 0944 EDTAssociated Order(s): ORDERS - SCANNED * Lead Fire Protection Engineer, Scan - 04/18/2011 0942 EDTAssociated Order(s): ELECTROMYOGRAM - SCANNED * Lead Fire Protection Engineer, Scan - 04/16/2011 1445 EDTAssociated Order(s): ORDERS - SCANNED documented in this encounter Plan of Treatment Upcoming Encounters Date Type Department Care Team (Late st Contact Info) Description 04/26/2024 9:15 EDT Office Visit [facility] Interventional Pain [address] [place] [address] Percy Molina MD 62 [facility] [address] [place] [address] 01/25/2026 12:00 EDT Office Visit [facility] Hematology & Oncology - [facility] [address] [place], [place] [phone] Jorge Lim MD 111 [facility], [facility], Level [address] [place] [phone] documented as of this encounter Procedures Procedure Name Priority Date/Time Associated Diagnosis Comments ORDERS - SCANNED 04/18/2011 9:44 EDT ELECTROMYOGRAM - SCANNED 04/18/2011 9:42 EDT ORDERS - SCANNED 04/16/2011 14:4 5 EDT documented in this encounter Results * ORDERS - SCANNED (04/18/2011 9:44 EDT) 04/18/2011 9:44 EDT Narrative Transcriptions Lead Fire Protection Engineer, Scan - 04/18/2011 9:44 EDT Scan Lead Fire Protection Engineer ADMISSION ORDERABLES * ELECTROMYOGRAM - SCANNED (04/18/2011 9:42 EDT) 04/18/2011 9:42 EDT Narrative Transcriptions Lead Fire Protection Engineer, Scan - 04/18/2011 9:42 EDT Scan Lead Fire Protection Engineer PROCEDURE/MINOR SURG ICAL ORDERABLES * ORDERS - SCANNED (04/16/2011 14:45 EDT) 04/16/2011 14:4 5 EDT Narrative Transcriptions Lead Fire Protection Engineer, Scan - 04/16/2011 14:45 EDT Scan Lead Fire Protection Engineer ADMISSION ORDERABLES documented in this encounter Visit Diagnoses Not on filedocumented in this encounter Care Teams Property Economist Relationship Specialty Start Date End Date Dangelo Reynolds MD PCP - General 07/29/10 02/03/16 documented as of this encounter
--- OUTSIDE RECORDS SUMMARY | 2024-04-22 22:01 | XMS_ITS | Encounter Summary ---
Author Organization [facility] Address [address] [place] [address] Care Team Providers Care Extrusion Process Operator Name Role Phone Dangelo Reynolds MD Primary Care Provider Un available Encounter Details Date Type Department Care Team (Late st Contact Info) Description 01/03/2013 Results Only [facility] Laboratory Services - [facility] ([facility]) [address] [place], [place] [address] Marleen Head, [address] [place], [place] [phone] Social History Tobacco Use Types Packs/Day Years [...] Description 04/26/2024 9:[address] [facility] Interventional Pain 62 [facility] [place] [address] Percy Molina MD [address] [facility] [address] [place] [address] 01/25/2026 12:00 EDT Office Visit [facility] Hematology & Oncology - [facility] [address] [place], [place] [phone] Jorge Lim MD [address] [place] [address] 2 [place] [address] documented as of this encounter [...] when reading/interpreti ng unformatted reports. Name: ? HESTERTHONG Adriane ? Accession #: ? [id number] ? : ? 1975 (Age: 37) ??F ?Collect Date: ? 01/03/2013 ? Location: ? [facility] ? Receive Date: ? 01/05/2013 ? Provider: MARLEEN HEAD [facility] Copy to: ? Final Report SPECIMEN ADEQUACY ? Satisfactory for Evaluation - transformation zone component present GENERAL CATEGORIZATION ? Epithelial Cell Abnormality INTERPRETATION ? 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 EDUCATIONAL NOTES/RECOMMENDATI ONS ? [facility] recommends following ASCCP's 2012 Updated Consensus [...] 33,35,39,45,51,52, 56,58,59,66, and 68 is detected by rn charge mediated amplification. High and intermediate risk HPV [...] confirmed the above diagnosis. End of Report [facility] 01/03/2013 01/05/2013 Marleen Head [facility] PATHOLOGY ORDERABLES [facility] [address] [place] [address] documented in this encounter Visit Diagnoses Not on filedocumented in this encounter Care Teams Extrusion Process Operator Relationship Specialty Start Date End Date Dangelo Reynolds MD PCP - General 07/29/10 02/03/16 documented as of this encounter
--- OUTSIDE RECORDS SUMMARY | 2024-04-22 22:01 | XMS_ITS | Encounter Summary ---
Author Organization [facility] Address [address] [place] [address] Care Team Providers Care Wine Fermenter Name Role Phone Diya Gifford MD Primary Care Provide r Dariana Juarez MD Unavailable [phone] Encounter Details Date Type Department Care Team (Late st Contact Info) Description 06/20/2021 Lab Requisition [facility] Pathology & Laboratory Medicine - [facility] [address] [place], [place] [id number] Outr Resulting Lab, Provider Social History Tobacco [...] [facility] Interventional Pain [address] [place] [address] Percy Molina MD [address] [facility] [address] [place] [address] 01/25/2026 12:00 EDT Office Visit [facility] Center Hematology & Oncology - [facility] [address] [place], [place] [address] Jorge Lim MD 111 [facility], [facility], Level 2 [place] [phone] documented as of this encounter Procedures Procedure Name Priority Date/Time Associated Diagnosis Comments ZZCOVID-19 TEST [facility] PCR Today 06/19/2021 17:20 EST COVID-19 TESTING Routine 06/19/2021 17:2 0 EST documented in this encounter Results * COVID-19 TEST [facility] PCR (06/19/2021 17:20 EST) Swab 06/19/2021 17:2 0 EST 06/20/2021 18:58 EST Provider Outr Resulting Lab MICROBIOLOGY - GENERAL ORDERABLES [facility] [address] [place] [address] * COVID-19 TESTING (06/19/2021 17:20 EST) COVID-19 rt-PCR Result Negative Negative 06/21/2021 13:51 EST [facility] Comment: This test has not been FDA cleared or approved. This test has been authorized by FDA under an EUA for use by authorized laboratories. This test has been authorized only for detection of nucleic acid from 2019-nCoV, not for any other viruses or pathogens. [...] was performed using the letitia SARS-CoV-2 assay ([employer] on the Letitia 6800 System Performing Lab Letitia 6800 [facility] 06/21/2021 13:51 EST [facility] Swab 06/19/2021 17:2 0 EST 06/20/2021 18:58 EST Provider Outr Resulting Lab MICROBIOLOGY - GENERAL ORDERABLES [facility] [address] [place] [address] documented in this encounter Visit Diagnoses Not on filedocumented in this encounter Care Teams Wine Fermenter Relationship Specialty Start Date End Date Diya Gifford MD [address] [place] [address] PCP - General 07/26/19 Dariana Juarez MD [address] [place] [address]- [address] [place] [phone] Consulting Clinician Cardiovascular Disease 02/06/22 documented as of this encounter
--- OUTSIDE RECORDS SUMMARY | 2024-04-22 22:01 | XMS_ITS | Encounter Summary ---
Author Organization [facility] Address [address] [place] [address] Care Team Providers Care Director Of Knowledge Management Name Role Phone Diya Gifford MD Primary Care Provide r Encounter Details Date Type Department Care Team (Latest Contact Info) Description 09/23/2021 9:57 EDT - 09/23/2021 10:27 EDT Hospital Encounter [facility] Non[facility] Cardiology - [facility] [address] [place] [address] Discharge Disposition: Home or Self Care Social [...] Info) Description 04/26/2024 9:15 EDT Office Visit [facility] Interventional Pain [address] [place] [address] Percy Molina MD [address] [facility] [address] [place] [address] 01/25/2026 12:00 EDT Office Visit [facility] Cancer Center Hematology & Oncology - [address] [phone] Jorge Lim MD [address] [facility], [facility], [address] [place] [phone] documented as of this encounter Visit Diagnoses Not on filedocumented in this encounter Care Teams Director Of Knowledge Management Relationship Specialty Start Date End Date Diya Gifford MD [address] [facility] [address] [place], [place] [phone] PCP - General 07/26/19 documented as of this encounter
--- OUTSIDE RECORDS SUMMARY | 2024-04-22 22:01 | XMS_ITS | Encounter Summary ---
Author Organization [facility] Address [address] [place] [address] Care Team Providers Care Byproducts Supervisor Name Role Phone Diya Gifford MD Primary Care Provide r Encounter Details Date Type Department Care Team (Late st Contact Info) Description 01/31/2020 Orders Only [facility] Spine Program - [address] [place] [address] Mike Coker MD [address] [facility] [place] [address] Neck pain (Primary Dx) Social [...] Info) Description 04/26/2024 9:15 EDT Office Visit [facility] Interventional Pain [address] [place], [place] [phone] Percy Molina MD [address] [facility] [address] [place] [address] 01/25/2026 12:00 EDT Office Visit [facility] Cancer Center Hematology & Oncology - [facility] [address] [place], [place] [phone] Jorge Lim MD 111 [facility], [address] [place] [phone] documented as of this encounter Visit Diagnoses Diagnosis Neck pain- Primary Cervicalgia documented in this encounter Care Teams Byproducts Supervisor Relationship Specialty Start Date End Date Diya Gifford MD [address] [place] [address] [address] [place] [address] PCP - General 07/26/19 documented as of this encounter
--- OUTSIDE RECORDS SUMMARY | 2024-04-22 22:01 | XMS_ITS | Encounter Summary ---
Author Organization [facility] Address [address] [place] [address] Care Team Providers Care Bottle Capper Name Role Phone Juan Luis Moore MD Primary Care Provider [phone] Reason for Visit * Reason Comments Pre-op Exam Encounter Details Date Type Department Care Team (Late st Contact Info) Description 07/08/2016 13:00 EST Office Visit [facility] Plastic, Reconstructive & Cosmetic Surgery - [address], [address] [place], [place] [phone] Juliano Penny MD [address] [place] [address] [place] [phone] Unilateral complete cleft palate with cleft [...] patient stated she accepts those risks. [facility] consent forms were reviewed and I [...] this patient; 20 minutes was spent in [id number] counseling and coordination of care. Juliano Penny Jr., MD FACS assistant city attorney and Pediatrics Division of Plastic Surgery [facility] documented in this encounter Plan of Treatment Upcoming Encounters Date Type Department Care Team (Late st Contact Info) Description 04/26/2024 9:[address] 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
--- OUTSIDE RECORDS SUMMARY | 2024-04-22 22:01 | XMS_ITS | Encounter Summary ---
Author Organization [facility] Address [address] [place] [address] Care Team Providers Care Letter Of Credit Clerk Name Role Phone Unavailable Primary Care Provider Unavailabl e Encounter Details Date Type Department Care Team (Latest Contact Info) Description 04/17/2006 10:56 EDT - 04/17/2006 11:59 EDT Hospital Encounter [facility] [address] [place], [place] [address] Jeet Guan MD Discharge Disposition: Auto Discharge [...] [facility] Interventional Pain [address] [facility] [place], [place] [phone] Percy Molina MD 62 [facility] [address] [place] [address] 01/25/2026 12:00 EDT Office Visit [facility] Hematology & Oncology - [facility] [address] [place], [place] [phone] Jorge Lim MD 111 [facility] 2 [place] [phone] documented as of this encounter Visit Diagnoses Not on filedocumented in this encounter
--- OUTSIDE RECORDS SUMMARY | 2024-04-22 22:01 | XMS_ITS | Encounter Summary ---
Author Organization [facility] Address [address] [place] [address] Care Team Providers Care Leverman Name Role Phone Unavailable Primary Care Provider Unavailabl e Encounter Details Date Type Department Care Team (Late st Contact Info) Description 10/13/2007 9:40 EDT Hospital Encounter [address] [address] Ruby Hall, PAAbbyC [address] [place] [address], [address] [place] [phone] Social History Tobacco Use Types Packs/Day Years [...] Visit [facility] Interventional Pain [address] [place], [place] [phone] Percy Molina MD [address] [place] [address] 01/25/2026 12:00 EDT Office Visit [facility] Center Hematology & Oncology - [facility] [address] [place], [place] [phone] Jorge Lim MD 111 [facility], [facility], [address] [place] [phone] Pending Results Name Type Priority Associated Diagnoses [...] 07/04/2009 18:4 6 EST 07/10/2009 14:36 EST [facility] [place] [facility] CNM MICROBIOLOGY - GENER AL ORDERABLES [facility] [address] [place] [address] * CYTOPATHOLOGY (07/04/2009 0:00 EST) Pathology Report: [...] reviewed and electronically signed by: ? Keshawn Foreman MD ? Report Date: ??07/10/2009 10:31 ? End of Report ? DOUGLAS ALEMAN 07/04/2009 07/06/2009 [facility] [place] [facility] CNM PATHOLOGY ORDERABLES Performing Organization Address City/State/[facility] Co de Phone Number [facility] [address] [place] [address] documented in this encounter Visit Diagnoses Not on filedocumented in this encounter
--- OUTSIDE RECORDS SUMMARY | 2024-04-22 22:01 | XMS_ITS | Encounter Summary ---
Author Organization [facility] Address [address] [place] [address] Care Team Providers Care Cap Coverer Name Role Phone Dangelo [place] MD Primary Care Provider Un available Encounter Details Date Type Department Care Team (Latest Contact Info) Description 02/05/2015 8:50 EDT - 02/05/2015 23:59 EDT Hospital Encounter [address] [address] Unknown, Provider, Discharge Disposition: Home or Self [...] Info) Description 04/26/2024 9:15 EDT Office Visit [facility] Interventional Pain 62 [place] [address] Percy Molina MD 62 [facility] [address] [place] [address] 01/25/2026 12:00 EDT Office Visit [facility] Cancer Center Hematology & Oncology - [facility] [address] [place], [place] [phone] Jorge Lim MD 111 [facility], [address] 2 [place] [phone] documented as of this encounter Visit Diagnoses Not on filedocumented in this encounter Care Teams Cap Coverer Relationship Specialty Start Date End Date Dangelo [place] MD PCP - General 07/29/10 02/03/16 documented as of this encounter
--- OUTSIDE RECORDS SUMMARY | 2024-04-22 22:02 | XMS_ITS | Encounter Summary ---
Author Organization [place] [address] Care Team Providers Care It Network Engineer Name Role Phone Diya Gifford MD Primary Care Provider [phone] Encounter Details Date Type Department Care Team (Late st Contact Info) Description 04/19/2024 Interpretation Only [facility] in [facility] [address] [place] [address] Cori Hawley PA [address] [place] [address] Social History Tobacco Use Types Packs/Day Years [...] Name Priority Date/Time Associated Diagnosis Comments XR ABDOMEN 1 VIEW STAT 04/19/2024 12: 00 PM EDT documented in this encounter Results * XR Abdomen 1 view (Generic) (04/19/2024 12:00 PM EDT) PT CLASS E RAD ADMITDTTM [id number] RAD PT RAD MD INFO [id number]^LAROW^ CORI^S RAD EXAM DESC XABD1^XR ABDOMEN 1V^RIS RAD WORKSTATION ID [id number] RAD Anatomical Region Laterality Modality Abdomen N/A Radiographic [place] ging Impressions 04/19/2024 12:04 PM EDT 1. ??Multiple punctate bilateral renal calculi. 2. ??3 mm left distal ureteral calculus is again seen. Thank you for letting us participate in the care of this patient. ??If you are a health care provider and have any questions regarding this report, please contact the number below. ??For patients who have questions please contact the health memory care director that requested your imaging first. ? Narrative 04/19/2024 12:04 PM EDT EXAMINATION: XR ABDOMEN 1V CLINICAL HISTORY: ??Reason for Abdomen: ??Renal Colic ??Add'l Info: known left renal calculi (as entered by ordering provider in the order requisition) TECHNIQUE: Portable supine AP view of the abdomen. COMPARISON: CT abdomen and pelvis April 18, 2024 FINDINGS: Multiple punctate radiodensities project over the expected location of the renal shadows. ??These findings are favored represent the radiographic correlates of the renal calculi that are better seen by CT. ??Overlying fecal matter and bowel contents likely limited visualization for an additional renal calculi. 3 mm calcific density in the expected location of the distal left ureter is slightly the radiographic correlate of the distal ureteral calculus seen on CT from April 18, 2024. Multiple metallic sutures project over the right iliac bone. No dilated loops of bowel. Procedure Note Nelly Murcia MD - 04/19/2024 EXAMINATION: XR ABDOMEN 1V CLINICAL HISTORY: Reason for Abdomen: Renal Colic Add'l Info: knownleft renal calculi (as entered by ordering provider in the order requisition) TECHNIQUE: Portable supine AP view of the abdomen. COMPARISON: CT abdomen and pelvis April 18, 2024 FINDINGS: Multiple punctate radiodensities project over the expected location of therenal shadows. These findings are favored represent the radiographic correlatesof the renal calculi that are better seen by CT. Overlying fecal matter andbowel contents likely limited visualization for an additional renal calculi. 3 mm calcific density in the expected location of the distal left ureteris slightly the radiographic correlate of the distal ureteral calculus seenon CT from April 18, 2024. Multiple metallic sutures project over the right iliac bone. No dilated loops of bowel. IMPRESSION 1. Multiple punctate bilateral renal calculi. 2. 3 mm left distal ureteral calculus is again seen. Thank you for letting us participate in the care of this patient. If youare a health care provider and have any questions regarding this report,please contact the number below. For patients who have questions please contactthe health memory care director that requested your imaging first. Cori GARCÍA IMG DX ORDERABLES documented in this encounter Visit Diagnoses Not on filedocumented in this encounter Care Teams It Network Engineer Relationship Specialty Start Date End Date Diya Gifford MD [address] [place] [address] PCP - General Family Medicine 08/18/19 documented as of this encounter
--- OUTSIDE RECORDS SUMMARY | 2024-04-22 22:02 | XMS_ITS | Encounter Summary ---
Author Organization [facility] Address [facility] [place] [address] Care Team Providers Care Lead Software Developer Name Role Phone Diya Gifford MD Primary Care Provider [phone] Reason for Visit * Auth/Cert Specialty Diagnoses [...] Expiration Date Visits Re quested Visits Authorized [id number] 1 1 Encounter Details Date Type Department Care Team (Late st Contact Info) Description 04/09/2020 12:10 PM EDT - 04/09/2020 2:30 PM EDT Surgery [place] [phone] Mau Ochoa MD [facility] [place] [address] RHINOPLASTY FOR CONGENITAL NASAL DEFORMITY, COLUMELLAR LENGTHENING, [...] closest emergency room or call the hospital audio/visual operator at [phone] and ask for physician tenon machine operator covering for your physician. Questions or problems after 5pm or on a weekend: Call the [facility] audio/visual operator at and ask for the physician tenon machine operator covering for your doctor. * Patient Instructions* Jenny Rollins MD - 04/09/2020 7:53 AM EDT What to Expect.... The healing process varies with each person. Pain (short term and buttermaker) With any surgery there is some discomfort [...] about scheduling, please contact our administrative officesat [phone] For clinical questions, please call our nurses at [phone] Both offices are open Thursday thru Thursday 8a - 5p. With emergencies after hours, call the hospital audio/visual operator at [phone] and ask for the Plastic Surgery Resident tenon machine operator. Future Appointments Date Time Provider Department Center 04/16/2020 9:30 AM Sandi Wong APRN [facility] [address] [place] [address] documented in this encounter Medications at Time [...] BY MOUTH TWICE A DAY 08/17/2019 Acidophilus-Pectin, Nicut 25 million cell -100 mg Tablet TAKE [...] was questioned regarding travel outside of the [facility], fever, cough, SOB or other illness in [...] again, temperature will be taken, patient and caregiver/sanitation truck driver will be given a mask to wear the entire time they are in the [facility] building. COVID test completed: scheduled 04/07 at [facility] @ 1015 Result of test: Action taken: * Yessenia Prather RN - 04/03/2020 4:53 PM EDT During this call the patient was questioned regarding travel outside of [facility], fever, cough, SOB or other illness in [...] again, temperature will be taken, patient and caregiver/sanitation truck driver will be given a mask [...] file Gets together: Not on file Attends taoist service: Not on file Active member of [...] Jenny Rollins MD Plastic Surgery Resident P# [id number] documented in this encounter Miscellaneous Notes * Op Note - Mau Ochoa MD - 04/09/2020 3:23 PM EDT [facility] Operative Note Patient Name: Marilin Allen : [id number] MR#: [id number] Case Date: 04/09/2020 Surgeon: Surgeon(s) and Role: [...] Operative Note Patient Name: Marilin Allen : [id number] MR#: [id number] Case Date: 04/09/2020 Surgeon: Surgeon(s) and Role: [...] Department Center 04/16/2020 9:30 AM Sandi Wong, BRAND SALES CONSULTANT [facility] 4M [facility] documented in this encounter Plan of Treatment Not on file documented as of this encounter Procedures Procedure Name Priority Date/Time Associated Diagnosis Comments Rebeka Nose/Cleft Lip/Tip (24143) 04/09/2020 11:39 AM EDT Nasal septal perforation [...] RN) documented in this encounter Care Teams Lead Software Developer Relationship Specialty Start Date End Date Diya Gifford MD [address] [place] [address] PCP - General Family Medicine 08/18/19 documented as of this encounter
--- OUTSIDE RECORDS SUMMARY | 2024-04-22 22:02 | XMS_ITS | Encounter Summary ---
Author Organization [facility] [place] [address] Care Team Providers Care Sample Builder Name Role Phone Diya Gifford MD Primary Care Provider [phone] Reason for Referral * Diagnostic Test (Routine) - Closed Specialty Diagnoses / Procedures Referred By Ar salinas Referred To Contact Radiology Diagnoses Hx of cleft palate Oronasal fistula Procedures CT Face wo Contrast Mau Ochoa MD [facility] [place] [address] [facility] [place] [address] Referral ID Status Reason Start Date Expiration Date V isits Requested Visits Authorized [id number] Closed Specialty Service Requested 12/29/2019 06/26/2020 1 1 Encounter Details Date Type Department Care Team (Late st Contact Info) Description 11/22/2019 Orders [place] [address] Mau Ochoa MD [facility] [place] [address] Oronasal fistula (Primary Dx); Hx of cleft [...] report, please contact the number below. ? Electronically signed by: OLIVIA Negro [facility] ([phone]), at 01/10/2020 4:38 PM Narrative 01/10/2020 4:38 PM EDT EXAMINATION: CT [...] number below. Electronically signed by: OLIVIA Negro [facility] ([phone]),at 01/10/2020 4:38 PM Mau Ochoa MD IMG [...] unspecified documented in this encounter Care Teams Sample Builder Relationship Specialty Start Date End Date Diya Gifford MD [address] [place] [address] PCP - General Family Medicine 08/18/19 documented as of this encounter
--- OUTSIDE RECORDS SUMMARY | 2024-04-22 22:02 | XMS_ITS | Clinical Summary ---
Author Organization [facility] Address [facility] [place] [address] Care Team Providers Care Senior Solutions Architect Name Role Phone Diya Gifford MD [...] MOUTH TWICE A DAY 08/17/2019 Active Acidophilus-Pectin, Yell 25 million cell -100 mg Tablet TAKE [...] complete cleft palate with cleft lip 02/05/2016 Encounters Date Type Department Care Team Description 04/19/2024 Interpretation Only [facility] in [address] [phone] Cori Hawley PA 04/18/2024 Interpretation Only [facility] in [address] [phone] Nilton Moore MD from Last 3 Months Social History Tobacco Use Types Packs/Day Years [...] Hepatitis B vaccine (0-59 yrs) (1) 1993 Tetanus/Diphtheria/Pertussis Vaccines (1 - Tdap) 01/26 HPV test 01/27/2004 PAP Smear 01/27/2004 Breast Cancer Share Decision Needed 2014 Breast Cancer screening 2014 Diabetes Screening (HgbA1C or Glucose) 2014 Zoster vaccine (1 of 2) 01/27/2024 Covid-19 Vaccine (1 - 2022- season) 2024 Influenza (Flu) vaccine (1 o f 1 - Influenza standard series) 02/28/2024 Procedures Procedure Name Priority Date/Time Associated Diagnosis Comments XR ABDOMEN 1 VIEW STAT 04/19/2024 12: [address] ABDOMEN AND PELVIS WO CONTRAST STAT 04/18/2024 7:27 PM EDT from Last 3 Months Results * XR Abdomen 1 view (Generic) (04/19/2024 12:00 PM EDT) PT CLASS E [facility] ADMITDTTM [id number] [facility] PT [facility] INFO [id number]^LAROW^ CORI^S [facility] EXAM DESC XABD1^XR ABDOMEN 1V^RIS [facility] WORKSTATION ID [id number] [facility] Anatomical Region Laterality Modality Abdomen N/A Radiographic [...] who have questions please contact the health nursing care attendant that requested your imaging first. ? Electronically signed by: Nelly Murcia MD, [facility] ([phone]), at 04/19/2024 12:04 PM Narrative 04/19/2024 12:04 PM EDT EXAMINATION: XR [...] patients who have questions please contactthe health nursing care attendant that requested your imaging first. Electronically signed by: Nelly Murcia MD, [facility]([phone]), at 04/19/2024 12:04 PM Cori GARCÍA IMG DX ORDERABLES * CT Abdomen & Pelvis wo Contrast (04/18/2024 7:27 PM EDT) PT CLASS E RAD ADMITDTTM [id number] RAD PT RAD INFO [id number]^URIEL SHAW^NILTON RAD EXAM DESC CTAPWO^CT ABD PELVIS WO IV OR ORAL CONTRAST^RIS RAD WORKSTATION ID [id number] RAD Anatomical Region Laterality Modality Abdomen, Pelvis Computed Tomogra phy Impressions 04/18/2024 7:44 PM EDT 1. ??Left 2-3 mm distal ureteral calculus without hydroureteronephrosis. However, there is mild periureteral stranding. ??Recommend correlation with urinalysis. 2. ??Multiple nonobstructing punctate renal calculus bilaterally. Preliminary report signed by: Daryn Woods MD at 04/18/2024 7:36 PM Thank you for letting us participate in the care of this patient. ??If you are a health care provider and have any questions regarding this report, please contact the number below. ??For patients who have questions please contact the health nursing care attendant that requested your imaging first. ? Electronically signed by: Nelly Murcia MD, [facility] ([phone]), at 04/18/2024 7:44 PM Narrative 04/18/2024 7:44 PM EDT EXAMINATION: CT ABD PELVIS WO IV OR ORAL CONTRAST CLINICAL HISTORY: ??Reason for Abdomen: ??Left Flank Pain ??Add'l Info: ? stones (as entered by ordering [...] ducts in the absence of IV contrast. ??No extrahepatic biliary dilatation. Gallbladder: No calcified stones. [...] lymph nodes. Bowel: Nondilated, no wall thickening. ?Normal appendix. Peritoneum and retroperitoneum: No free fluid or loculated fluid collection. No pneumoperitoneum. Abdominal wall: Normal. Reproductive organs: Normal contours of the uterus and adnexae. Osseous structures: No suspicious lesions. Procedure Note Nelly Murcia MD - 04/18/2024 EXAMINATION: CT ABD PELVIS WO IV OR ORAL CONTRAST CLINICAL HISTORY: Reason for Abdomen: Left Flank Pain Add'l Info: ?stones (as entered by ordering provider in the order requisition) TECHNIQUE: Helical CT of the abdomen and pelvis without intravenouscontrast. Oral contrast was not administered. Multiplanar reformatted images were generated. COMPARISON: Abdomen/pelvis CT 08/04/2021 FINDINGS: The absence of intravenous contrast limits the evaluation of solid visceraand vasculature. Lower chest: There are coronary artery calcifications. Liver: Normal size and attenuation. Bile ducts: Limited evaluation of the intrahepatic bile ducts in theabsence of IV contrast. No extrahepatic biliary dilatation. Gallbladder: No calcified stones. Normal caliber wall. Pancreas: Normal attenuation. Spleen: Normal size. Adrenals: Normal. Right kidney/ureter: No collecting system dilatation. Multiple sub-3 mmpunctate nonobstructing renal calculi. Left kidney/ureter: There is a 2-3 mm distal ureteral calculus without hydroureteronephrosis. Multiple sub-3 mm punctate nonobstructing renalcalculi. There is mild periureteral stranding. Urinary Bladder: Decompressed which limits evaluation. No calculus. Vasculature: No abdominal aortic aneurysm. Lymph Nodes: No enlarged lymph nodes. Bowel: Nondilated, no wall thickening. Normal appendix. Peritoneum and retroperitoneum: No free fluid or loculated fluidcollection. No pneumoperitoneum. Abdominal wall: Normal. Reproductive organs: Normal contours of the uterus and adnexae. Osseous structures: No suspicious lesions. IMPRESSION 1. Left 2-3 mm distal ureteral calculus without hydroureteronephrosis. However, there is mild periureteral stranding. Recommend correlationwith urinalysis. 2. Multiple nonobstructing punctate renal calculus bilaterally. Preliminary report signed by: Daryn Woods MD at 47:36 PM Thank you for letting us participate in the care of this patient. If youare a health care provider and have any questions regarding this report,please contact the number below. For patients who have questions please contactthe health nursing care attendant that requested your imaging first. Nilton Moore MD IMG CT ORDERABLES from Last 3 Months Care Teams Senior Solutions Architect Relationship Specialty Start Date End Date Diya Gifford MD [address] [place] [address] PCP - General Family Medicine 08/18/19
--- OUTSIDE RECORDS SUMMARY | 2024-04-22 22:02 | XMS_ITS | Encounter Summary ---
Author Organization [facility] Address [facility] [place] [address] Care Team Providers Care Energy Risk Management Analyst Name Role Phone Sly Schultz MD Primary Care Provider [phone] Encounter Details Date Type Department Care Team (Late st Contact Info) Description 02/28/2016 Ancillary Procedure Radiology Library at [facility] [place] [address] Diya Gifford MD [address] [place], [place] [address] Social History Tobacco Use Types Packs/Day Years [...] CT Face (02/28/2016 12:00 AM EDT) Narrative [facility] - 08/19/2019 6:42 PM EST This exam is auto-finalizing. It's purpose is for storage only. Diya Gifford MD IMG FILM LIBRARY OR DERABLES [place], [place] documented in this encounter Visit Diagnoses Not on filedocumented in this encounter Care Teams Energy Risk Management Analyst Relationship Specialty Start Date End Date Sly Schultz MD NPI: [id number] [place] [address] [address] [place] [address] PCP - General 05/21/10 08/17/19 documented as of this encounter
--- OUTSIDE RECORDS SUMMARY | 2024-04-22 22:02 | XMS_ITS | Encounter Summary ---
[place] [address] Care Team Providers Care Fingernail Former Name Role Phone Diya Gifford MD Primary Care Provider [phone] Reason for Referral * Consultation (Urgent) - Authorized Specialty Diagnoses / Procedures Referred By Ar salinas Referred To Contact [facility] Diagnoses Other chronic pain Chronic left shoulder pain Chronic neck pain Pain- chronic neck pain/ MRI 2021 @ [facility]/? pain mgmt options Diya Gifford MD [address] [place] [address] [facility] [place] [address] Referral ID Status Reason Start Date Expiration Date Visits Requested Visits Authorized [id number] Authorized Consult, Test & Treat PCP Updated and/or Approved 07/16/2023 07/21/2024 6 6 Encounter Details Date Type Department Care Team (Latest Contact Info) Description 07/22/2023 Transcribe Orders eDH Incoming Referrals [phone] Diya Gifford MD [address] [place] [address] Other chronic pain; Chronic left [...] Cervicalgia documented in this encounter Care Teams Fingernail Former Relationship Specialty Start Date End Date Diya Gifford MD [address] [place] [address] PCP - General Family Medicine 08/18/19 documented as of this encounter
--- OUTSIDE RECORDS SUMMARY | 2024-04-22 22:02 | XMS_ITS | Encounter Summary ---
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 Mau Ochoa MD [facility] [place] [address] Rebekah Lion MD [facility] [place] [address] Referral ID Status Reason Start Date Expiration Date V isits Requested Visits Authorized [id number] Closed Consult, Test & Treat 01/10/2020 01/09/2021 1 1 Encounter Details Date Type Department Care Team (Late st Contact Info) Description 02/24/2020 11:00 AM EDT Office Visit Otolaryngology at [place] [phone] Rebekah Lion MD [facility] [place] [address] Nasal septal perforation Social History Tobacco Use [...] Lion MD - 02/24/2020 11:00 AM EDT [facility] Otolaryngology - Head and Neck Surgery Rebekah Lion MD 02/24/20 11:06 AM [place] [id number] Office Patient Name: Marilin Allen Date of [...] BY MOUTH TWICE A DAY ??? Acidophilus-Pectin, Cache 25 million cell -100 mg Tablet TAKE [...] history on file. Social History: Lives in [facility] [address] Social History Socioeconomic History ??? Marital status: [...] file Gets together: Not on file Attends sikhism service: Not on file Active member of [...] sinuses documented in this encounter Care Teams Renal Dietitian Relationship Specialty Start Date End Date Diya Gifford MD [address] [address] PCP - General Family Medicine 08/18/19 documented as of this encounter
--- OUTSIDE RECORDS SUMMARY | 2024-04-22 22:02 | XMS_ITS | Encounter Summary ---
Author Organization [facility] Address [facility] [place] [address] Care Team Providers Care Brick Chimney Supervisor Name Role Phone Diya Gifford MD Primary Care Provider [phone] Reason for Visit * Reason Comments Skin Lesion * Consultation (Urgent) - Closed Specialty Diagnoses / Procedures Referred By Ar salinas Referred To Contact Dermatology Diagnoses Disorder of the skin and subcutaneous tissue, unspecified skin lesions on face, getting bigger Diya Gifford MD [address] [place] [address] [facility] Dermatology [address] [place] [address] Referral ID Status Reason Start Date Expiration Date V isits Requested Visits Authorized [id number] Closed Consult, Test & Treat [facility] PCP Updated and/or Approved 12/28/2020 06/30/2021 6 6 Encounter Details Date Type Department Care Team (Late st Contact Info) Description 01/08/2021 4:00 PM EDT Office Visit Dermatology at [facility] [address] [place] [address] Luciano Parson MD [address] [facility] [address] Neoplasm of uncertain behavior of skin of [...] Luciano Parson MD FAAD at Dermatology at [facility] Patient's preferred name Marilin PAST MEDICAL [...] skin documented in this encounter Care Teams Brick Chimney Supervisor Relationship Specialty Start Date End Date Diya Gifford MD [address] [place] [address] PCP - General Family Medicine 08/18/19 documented as of this encounter
--- OUTSIDE RECORDS SUMMARY | 2024-04-22 22:02 | XMS_ITS | Encounter Summary ---
Author Organization [facility] [place] [address] Care Team Providers Care Rn Acute Name Role Phone Diya Gifford MD Primary Care Provider [phone] Encounter Details Date Type Department Care Team (Late st Contact Info) Description 04/18/2024 Interpretation Only [facility] in [address] [address] Nilton Moore MD [address] [place] [address] [id number] Social History Tobacco Use Types Packs/Day Years [...] Name Priority Date/Time Associated Diagnosis Comments CT ABDOMEN AND PELVIS WO CONTRAST STAT 04/18/2024 7:27 PM EDT documented in this encounter Results * CT Abdomen & Pelvis wo Contrast (04/18/2024 7:27 PM EDT) PT CLASS E RAD ADMITDTTM [id number] RAD PT RAD INFO [id number]^URIEL SHAW^NILTON RAD EXAM DESC CTAPWO^CT ABD PELVIS WO IV OR ORAL CONTRAST^RIS RAD WORKSTATION ID [id number] RAD Anatomical Region Laterality Modality Abdomen, Pelvis [...] who have questions please contact the health home care coordinator that requested your imaging first. ? Narrative 04/18/2024 7:44 PM EDT EXAMINATION: CT [...] patients who have questions please contactthe health home care coordinator that requested your imaging first. Nilton Moore MD IMG CT ORDERABLES documented in this encounter Visit Diagnoses Not on filedocumented in this encounter Care Teams Rn Acute Relationship Specialty Start Date End Date Diya Gifford MD [address] [place] [address] PCP - General Family Medicine 08/18/19 documented as of this encounter
--- OUTSIDE RECORDS SUMMARY | 2024-04-22 22:02 | XMS_ITS | Encounter Summary ---
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 Mau Ochoa MD [facility] [place] [address] Rebekah Lion MD [facility] [place] [address] Referral ID Status Reason Start Date Expiration Date V isits Requested Visits Authorized [id number] Closed Consult, Test & Treat 01/10/2020 01/09/2021 1 1 Reason for Visit * Reason Comments Follow-up cleft lip Encounter Details Date Type Department Care Team (Late st Contact Info) Description 01/10/2020 11:00 AM EDT Office [place] [address] Mau Ochoa MD [facility] [place] [address] Hx of cleft palate; Oronasal fistula; Nasal [...] sinuses documented in this encounter Care Teams Director Consumer Relationship Specialty Start Date End Date Diya Gifford MD [address] [place] [address] PCP - General Family Medicine 08/18/19 documented as of this encounter
--- OUTSIDE RECORDS SUMMARY | 2024-04-22 22:02 | XMS_ITS | Encounter Summary ---
Author Organization [facility] Address [facility] [place] [address] Care Team Providers Care Enterer Name Role Phone Diya Gifford MD Primary Care Provider Encounter Details Date Type Department Care Team (Late st Contact Info) Description 10/22/2021 Ancillary Procedure Radiology Library at [facility] [place] [address] Diya Gifford MD [address] [place], [place] [address] Social History Tobacco Use Types Packs/Day Years [...] MR Spine (10/22/2021 12:00 AM EDT) Narrative [facility] - 08/10/2023 3:23 PM EST This exam is auto-finalizing. It's purpose is for storage only. Diya Gifford MD IMG FILM LIBRARY OR DERABLES [facility] [place], [place] documented in this encounter Visit Diagnoses Not on filedocumented in this encounter Care Teams Enterer Relationship Specialty Start Date End Date Diya Gifford MD [address] [place] [address] PCP - General Family Medicine 08/18/19 documented as of this encounter
--- OUTSIDE RECORDS SUMMARY | 2024-04-22 22:02 | XMS_ITS | Encounter Summary ---
[place] [address] Care Team Providers Care Mixing Operator Name Role Phone Jonathan Gifford MD Primary Care Provider [phone] Reason for Referral * Consultation (Routine) - Closed Specialty Diagnoses / Procedures Referred By Contshala t Referred To [facility] Diagnoses Cervicalgia Radiculitis of left cervical region Incomplete tear of left rotator cuff, unspecified whether traumatic Chronic pain syndrome Martin Toledo MD [facility] [address] PHYSICAL MEDICINE [place] [address] [facility] [place] [address] Referral ID Status Reason Start Date Expiration Date V isits Requested Visits Authorized [id number] Closed Consult, Test & Treat 12/19/2019 12/18/2020 [...] radiculopathy / MRI & XR (shoulder) @ [facility] *schedule with Jonathan Pyle MD [address] [place] [address] [address] [facility] [place] [address] Referral ID Status Reason Start Date Expiration Date Visits Re quested Visits Authorized [id number] Closed 11/23/2019 11/22/2020 1 1 Encounter Details Date Type Department Care Team (Late st Contact Info) Description 12/19/2019 2:00 PM EDT Office Visit [place] [address] Martin Toledo MD [facility] [address] PHYSICAL MEDICINE [place] [address] Cervicalgia; Radiculitis of left cervical region; Incomplete [...] Subjective: Marilin Allen is a 44 y.o. [id number] female who presents for Physical Medicine and [...] the patient was going to see a business operations specialist for evaluation of possible radiculopathy. Outside [...] BY MOUTH TWICE A DAY ??? Acidophilus-Pectin, [place] 25 million cell -100 mg Tablet TAKE [...] left wrist. Imaging: MRI of left shoulder, [facility], 07/29/2019: Small partial tear of [...] syndrome documented in this encounter Care Teams Mixing Operator Relationship Specialty Start Date End Date Jonathan Gifford MD [address] [place] [address] PCP - General Family Medicine 08/18/19 documented as of this encounter
--- OUTSIDE RECORDS SUMMARY | 2024-04-22 22:02 | XMS_ITS | Encounter Summary ---
Author Organization [facility] Address [facility] [place] [address] Care Team Providers Care Resawyer Name Role Phone Diya Gifford MD Primary Care Provider [phone] Reason for Visit * Auth/Cert Specialty Diagnoses [...] Expiration Date Visits Re quested Visits Authorized [id number] 1 1 Encounter Details Date Type Department Care Team (Latest Contact Info) Description 04/09/2020 10:23 AM EDT - 04/09/2020 3:23 PM EDT Hospital Encounter [place] [phone] Mau Ochoa MD [facility] [place] [address] Nasal septal perforation; Congenital cleft lip nasal [...] closest emergency room or call the hospital technical operator at [phone] and ask for physician regional liaison covering for your physician. Questions or problems after 5pm or on a weekend: Call the [facility] technical operator at and ask for the physician regional liaison covering for your doctor. * Patient Instructions* Jenny Rollins MD - 04/09/2020 7:53 AM EDT What to Expect.... The healing process varies with each person. Pain (short term and continuous churn buttermaker) With any surgery there is some [...] about scheduling, please contact our administrative officesat [phone] For clinical questions, please call our nurses at [phone] Both offices are open Thursday thru Thursday 8a - 5p. With emergencies after hours, call the hospital technical operator at [phone] and ask for the Plastic Surgery Resident regional liaison. Future Appointments Date Time Provider Department Center 04/16/2020 9:30 AM Sandi Wong APRN [facility] [address] [place] [address] documented in this encounter Medications at Time [...] BY MOUTH TWICE A DAY 08/17/2019 Acidophilus-Pectin, [place] 25 million cell -100 mg Tablet TAKE [...] was questioned regarding travel outside of the [facility], fever, cough, SOB or other illness in [...] again, temperature will be taken, patient and caregiver/sales route driver will be given a mask to wear the entire time they are in the [facility] building. COVID test completed: scheduled 04/07 at [facility] @ 1015 Result of test: Action taken: * Yessenia Prather RN - 04/03/2020 4:53 PM EDT During this call the patient was questioned regarding travel outside of [facility], fever, cough, SOB or other illness in [...] again, temperature will be taken, patient and caregiver/sales route driver will be given a mask to [...] file Gets together: Not on file Attends mormonism service: Not on file Active member of [...] Jenny Rollins MD Plastic Surgery Resident P# [id number] documented in this encounter Miscellaneous Notes * Op Note - Mau Ochoa MD - 04/09/2020 3:23 PM EDT [facility] Operative Note Patient Name: Marilin Allen : [id number] MR#: [id number] Case Date: 04/09/2020 Surgeon: Surgeon(s) and Role: [...] Operative Note Patient Name: Marilin Allen : [id number] MR#: [id number] Case Date: 04/09/2020 Surgeon: Surgeon(s) and Role: [...] Department Center 04/16/2020 9:30 AM Sandi Wong SVP [employer] [facility] 4M [facility] documented in this encounter Plan of Treatment Not on file documented as of this encounter Procedures Procedure Name Priority Date/Time Associated Diagnosis Comments Rebeka Nose/Cleft Lip/Tip ([id number]) 04/09/2020 11:39 AM EDT Nasal septal perforation [...] RN) documented in this encounter Care Teams Resawyer Relationship Specialty Start Date End Date Diya Gifford MD [address] [place] [address] PCP - General Family Medicine 08/18/19 documented as of this encounter
--- OUTSIDE RECORDS SUMMARY | 2024-04-22 22:02 | XMS_ITS | Encounter Summary ---
Author [facility] [place] [address] Care Team Providers Care Fiberglass Ski Maker Name Role Phone Diya Gifford MD Primary Care Provider Reason for Visit * Reason Onset Date Comments TeleHealth 10/14/2019 Encounter Details Date Type Department Care Team (Late st Contact Info) Description 10/14/2019 Telephone Plastic Surgery at [facility] [place] [phone] Laly Dey LNA TeleHealth Social History Tobacco [...] on filedocumented in this encounter Care Teams Fiberglass Ski Maker Relationship Specialty Start Date End Date Diya Gifford MD [address] [place] [address] PCP - General Family Medicine 08/18/19 documented as of this encounter
--- OUTSIDE RECORDS SUMMARY | 2024-04-22 22:02 | XMS_ITS | Encounter Summary ---
Author Organization [facility] [place] [address] Care Team Providers Care Water Quality Specialist Name Role Phone Diya Gifford MD Primary Care Provider [phone] [phone] Encounter Details Date Type Department Care Team (Late st Contact Info) Description 04/03/2020 Telephone [facility] [place] [address] Amanda Pennington Social History Tobacco Use Types [...] ASK: TRAVEL ???Have you travelled outside of [place] ([place], [place], [place], [place], [place], [place]) in the past 14 days??? 2. ASK: [...] Transfer patient to the Covid-19 Hotline Number ([phone]) for further instructions. If 'No' to all [...] Ordering provider: Mau Ochoa MD [facility] Date of Testin04/07/2020 Time of Testin:15am Symptoms: No documented in this encounter Plan of Treatment Not on file documented as of this encounter Visit Diagnoses Not on filedocumented in this encounter Care Teams Water Quality Specialist Relationship Specialty Start Date End Date Diya Gifford MD [address] [place] [address] PCP - General Family Medicine 08/18/19 documented as of this encounter
--- OUTSIDE RECORDS SUMMARY | 2024-04-22 22:02 | XMS_ITS | Encounter Summary ---
Author Organization [facility] [place] [address] Care Team Providers Care Asset Coordinator Name Role Phone Diya Gifford MD Primary Care Provider [phone] Encounter Details Date Type Department Care Team (Late st Contact Info) Description 05/14/2022 10:45 AM EST Office Visit Dermatology [facility] [address] [place] [address] Luciano Parson MD [address] [facility] [place] [address] Prurigo; Skin tag Social History Tobacco Use [...] Provider: Luciano Parson MD FAAD at Dermatology [facility] Patient's preferred name Marilin Preferred contact method [...] recurrence on the left chin. Laboratory Results [id number] A. Left preauricular cheek, skin shave biopsy: [...] dermatitis. [] Recall placed [] Forwarded to cardiovascular surgeon [x] Patient scheduled before exiting Scribe attestation: Simone Victor MA has performed the documentation for this encounter in the presence of and acting as a scribe for Luciano Parson MD FAAJenna. I performed the above scribed service and agree with the accuracy of the documentation in this encounter. Reviewed and signed by: Luciano Parson MD FAAD Dermatology [facility] documented in this encounter Plan of Treatment Not on file documented as of this encounter Visit Diagnoses Diagnosis Prurigo Skin tag Unspecified hypertrophic and atrophic condition of skin documented in this encounter Care Teams Asset Coordinator Relationship Specialty Start Date End Date Diya Gifford MD [address] [place] [address] PCP - General Family Medicine 08/18/19 documented as of this encounter
--- OUTSIDE RECORDS SUMMARY | 2024-04-22 22:02 | XMS_ITS | Encounter Summary ---
Author Organization [facility] Address [facility] [place] [address] Care Team Providers Care Ladies Underwear Operator Name Role Phone Diya Gifford MD Primary Care Provider [phone] Reason for Visit * Reason Comments Follow-up cleft palate Encounter Details Date Type Department Care Team (Late st Contact Info) Description 02/24/2020 11:45 AM EDT Office [place] [address] Mau Ochoa MD [facility] [place] [address] Congenital cleft lip nasal deformity (Primary Dx); [...] Day of Surgery You will need a hook up driver. If you do not have a hook up driver, your surgery will be canceled. DO NOT wear any jewelry, makeup or artificial nails. Do wear comfortable, loose fitting clothes. Anesthesia will meet with you the morning of surgery. They will perform an assessment and review your history with you. Contact Information: During regular office hours (Thursday- Thursday, non-holiday 8:00 am- 5:00 pm) For an appointment or insurance questions [phone] For questions pertaining to your surgical date [phone] For nursing related questions [phone] On weekends, holidays or after office hours: Call [phone] and ask the train operator to page the Plastic Surgery Resident readiness paraprofessional. documented in this encounter Progress Notes * [...] possible cartilage graft in the ear CPT: 08856 Possible Codes-Cleft rhinoplasty Rhinoplasty 2nd to cleft lip: 07035 with septum or bone: 08779 Septoplasty: 46137 Surgical site: Nose Side: kylie Anesthesia: General Follow up: 7-10 days ISABELLA when JS in clinic THHF: No in person with ISABELLA PAT: H&P DOS/H&P with PCP Plan: 1. I will confer with Dr. Lion to discuss how to proceed 2. Schedule surgery. IOliva, have performed the documention for this encounter in the presence of and acting as a scribe for MUA OCHOA MD. I performed the services which [...] sinuses documented in this encounter Care Teams Ladies Underwear Operator Relationship Specialty Start Date End Date Diya Gifford MD [address] [place] [address] PCP - General Family Medicine 08/18/19 documented as of this encounter
--- OUTSIDE RECORDS SUMMARY | 2024-04-22 22:02 | XMS_ITS | Encounter Summary ---
Author Organization [facility]enna [facility] [place] [address] Care Team Providers Care Crystal Report Developer Name Role Phone Diya Gifford MD Primary Care Provider [phone] [phone] Encounter Details Date Type Department Care Team (Late st Contact Info) Description 01/22/2021 Telephone Otolaryngology at [facility] [place] [address] Mikki Rucker Social History Tobacco Use Types [...] on filedocumented in this encounter Care Teams Crystal Report Developer Relationship Specialty Start Date End Date Diya Gifford MD [address] [place] [address] PCP - General Family Medicine 08/18/19 documented as of this encounter
--- OUTSIDE RECORDS SUMMARY | 2024-04-22 22:02 | XMS_ITS | Encounter Summary ---
Author Organization [facility] Address [facility] [place] [address] Care Team Providers Care Cutting Machine Operator Helper Name Role Phone Diya Gifford MD Primary Care Provider [phone] Encounter Details Date Type Department Care Team (Late st Contact Info) Description 10/08/2021 Ancillary Procedure Radiology Library at [facility] [place] [address] Diya Gifford MD [address] [place], [place] [address] Social History Tobacco Use Types Packs/Day Years [...] DX Spine (10/08/2021 12:00 AM EDT) Narrative [facility] - 08/10/2023 3:23 PM EST This exam is auto-finalizing. It's purpose is for storage only. Diya Gifford MD IMG FILM LIBRARY OR DERABLES [facility] [place] documented in this encounter Visit Diagnoses Not on filedocumented in this encounter Care Teams Cutting Machine Operator Helper Relationship Specialty Start Date End Date Diya Gifford MD [address] [place] [address] PCP - General Family Medicine 08/18/19 documented as of this encounter
--- OUTSIDE RECORDS SUMMARY | 2024-04-22 22:02 | XMS_ITS | Encounter Summary ---
Author Organization [facility] Address [facility] [place] [address] Care Team Providers Care Utilization Management Manager Name Role Phone Diya Gifford MD Primary Care Provider [phone] Reason for Visit * Reason Comments Follow Up Surgery s/p rhinoplasty dos 04/09/20 Encounter Details Date Type Department Care Team (Late st Contact Info) Description 05/01/2020 2:30 PM EST Office Visit Plastic Surgery at [facility] [place] [address] Sandi Wong [place] [facility] [place] [address] Surgery follow-up Social History Tobacco Use Types [...] surgery documented in this encounter Care Teams Utilization Management Manager Relationship Specialty Start Date End Date Diya Gifford MD [address] [place] [address] PCP - General Family Medicine 08/18/19 documented as of this encounter
--- OUTSIDE RECORDS SUMMARY | 2024-04-22 22:02 | XMS_ITS | Encounter Summary ---
[place] [address] Care Team Providers Care Bale Piler Name Role Phone Diya Gifford MD Primary Care Provider [phone] Reason for Referral * Consultation (Routine) - Closed Specialty Diagnoses / Procedures Referred By Ar salinas Referred To Contact Neurology Diagnoses Headache, chronic daily Vannesa Bunch APRN [address] [place] [address] [facility] Neurology [address] [place] [phone] Referral ID Status Reason Start Date Expiration Date V isits Requested Visits Authorized [id number] Closed Consult, Test & Treat 07/17/2023 07/16/2024 1 1 Encounter Details Date Type Department Care Team (Latest Contact Info) Description 07/17/2023 Transcribe Orders eD Incoming Referrals [phone] Vannesa Bunch APRN [address] [place], [place] [id number] Headache, chronic daily (Primary Dx) Social History [...] Headache documented in this encounter Care Teams Bale Piler Relationship Specialty Start Date End Date Diya Gifford MD [address] [place] [address] PCP - General Family Medicine 08/18/19 documented as of this encounter
--- OUTSIDE RECORDS SUMMARY | 2024-04-22 22:02 | XMS_ITS | Encounter Summary ---
Author Organization [place] [address] Care Team Providers Care Final Assembly Inspector Name Role Phone Diya Gifford MD Primary Care Provider [phone] Encounter Details Date Type Department Care Team (Late st Contact Info) Description 02/19/2021 1:45 PM EDT Office Visit Dermatology [facility] [address] [place] [address] Luciano Parson MD [address] [facility] [place] [address] Neoplasm of uncertain behavior of skin of [...] Provider: Luciano Parson MD FAAD at Dermatology [facility] Patient's preferred name Marilin ?? PAST MEDICAL [...] dermatitis. [] Recall placed [] Forwarded to seasonal delivery driver [] Patient scheduled before exiting Scribe attestation: Nelly Thomas [facility] has performed the documentation for this encounter in the presence of and acting as a scribe for MD CHAMP Valentin. I performed the above scribed service and agree with the accuracy of the documentation in this encounter. Reviewed and signed by: MD CHAMP Valentin Dermatology [facility] * Luciano Parson MD - 02/19/2021 1:45 PM EDT [id number] A. Left preauricular cheek, skin shave biopsy: [...] PM EDT 02/19/2021 4:40 PM EDT Narrative [facility] - 02/19/2021 4:40 PM EDT Specimen requisition ordered. ??Separate Pathology report to follow Luciano Parson MD PATHOLOGY/CYTOLOGY O RDERACARMEN Performing Organization Address [facility] Co de Phone Number [facility] [place] [place] [address] * Specimen to Pathology (02/19/2021 4:39 PM EDT) AP Specimen 02/19/2021 4:39 PM EDT 02/19/2021 4:39 PM EDT Narrative [facility] - 02/19/2021 4:39 PM EDT Specimen requisition ordered. ??Separate Pathology report to follow Luciano Parson MD PATHOLOGY/CYTOLOGY O RDERABLES Performing Organization Address [facility] [place] [address] * Surgical Pathology Report (02/19/2021 4:38 PM EDT) Final Diagnosis [id number] ? Location: [facility] The signing pathologist has [...] Verified: ??02/25/2021 11:23 ??Dermatopatholo gist Performed at: ??-[facility] Dept. of [place]ology, [place], [place] DISCUSSION A. The findings could represent [...] labeled C1. ??MLL 02/25/2021 11:23 AM EDT [facility] SPECIMEN FROM SKIN / Unknown 02/19/2021 4:38 PM EDT 02/19/2021 4:38 PM EDT SPECIMEN FROM SKIN / Unknown 02/19/2021 4:38 PM EDT 02/19/2021 4:38 PM EDT SPECIMEN FROM SKIN / Unknown 02/19/2021 4:38 PM EDT 02/19/2021 4:38 PM EDT Luciano Parson MD PATHOLOGY/CYTOLOGY O FRANKY Performing Organization Address [facility]/ZIP Co de Phone Number [facility] [place] [place] [address] * Specimen to Pathology (02/19/2021 4:38 PM EDT) AP Specimen 02/19/2021 4:38 PM EDT 02/19/2021 4:38 PM EDT Narrative [facility] - 02/19/2021 4:38 PM EDT Specimen requisition ordered. ??Separate Pathology report to follow Luciano Parson MD PATHOLOGY/CYTOLOGY O FRANKY Performing Organization Address [facility]/ZIP Co de Phone Number [facility] [place] [address] documented in this encounter Visit Diagnoses Diagnosis Neoplasm of uncertain behavior of skin of face Neoplasm of uncertain behavior of skin documented in this encounter Care Teams Final Assembly Inspector Relationship Specialty Start Date End Date Diya Gifford MD [address] [place] [address] PCP - General Family Medicine 08/18/19 documented as of this encounter
--- OUTSIDE RECORDS SUMMARY | 2024-04-22 22:02 | XMS_ITS | Encounter Summary ---
Author Organization [facility] Address [facility] [place] [address] Care Team Providers Care Broker Assistant Name Role Phone Diya Gifford MD Primary Care Provider [phone] Reason for Visit * Reason Comments Follow Up Surgery s/p rhinoplasty 03/29 2 - post poned surgery with ENT - would like your thoughts on the procedure Encounter Details Date Type Department Care Team (Late st Contact Info) Description 04/16/2021 4:15 PM EDT Office [place] [address] Mau Ochoa MD [facility] [place] [address] Surgery follow-up Social History Tobacco Use Types [...] surgery documented in this encounter Care Teams Broker Assistant Relationship Specialty Start Date End Date Diya Gifford MD [address] [place] [address] PCP - General Family Medicine 08/18/19 documented as of this encounter
--- OUTSIDE RECORDS SUMMARY | 2024-04-22 22:02 | XMS_ITS | Encounter Summary ---
Author Organization [facility] Address [address] [place] [address] Care Team Providers Care In Service Coordinator Name Role Phone Dangelo Reynolds MD Primary Care Provider Un available Juan Luis Moore MD Primary Care Provider [phone] Diya Gifford MD Primary Care Provide r Dariana Juarez MD Unavailable [phone] Encounter Details Date Type Department Care Team (Late st Contact Info) Description 05/08/2003 Before PRISM Converted Visit (Maple) [facility] - [facility] conversion [address], [place] [phone] Luis Knight MD [address] [place] [address] Social History Tobacco Use Types Packs/Day Years Used Date Smoking Tobacco: Never Assessed Sex and Gender Information Value Date Recorded Sex Assigned at Female 09/21/2023 8:38 EDT Gender Identity Female 06/08/2019 10:16 EST Sexual Orientation Not on file documented as of this encounter Plan of Treatment Upcoming Encounters Date Type Department Care Team (Late st Contact Info) Description 04/26/2024 9:15 EDT Office Visit [facility] Interventional Pain [address] [place] [address] Percy Molina MD [address] [place] [address] [address] [place] [address] 01/25/2026 12:00 EDT Office Visit [facility] Cancer Center Hematology & Oncology - [facility] [address], [place] [address] Jorge Lim MD [address] [facility], [facility], Level [address] [place] [address] documented as of this encounter Procedures Procedure Name Priority Date/Time Associated Diagnosis Comments RAD ULTRASOUND Routine 05/08/2003 14:30 EST documented in this encounter Results * RAD ULTRASOUND (05/08/2003 14:30 EST) Anatomical Region Laterality Modality Other 05/08/2003 14:3 0 EST Narrative 02/26/2009 2:27 EDT [id number],CLEFT LIP/PALATE Please refer to the separate [facility] report. Procedure Note Kendrick Guan MD - 02/26/2009 [id number],CLEFT LIP/PALATE Please refer to the separate [facility] report. Luis Knight MD IMG US ORDERABLE S documented in this encounter Visit Diagnoses Not on filedocumented in this encounter Care Teams In Service Coordinator Relationship Specialty Start Date End Date Dangelo Reynolds MD PCP - General 07/29/10 02/03/16 Juan Luis Moore MD PCP - General 02/04/16 07/25/19 Diya Gifford MD [address] [place] [address] [address] [place], [place] [address] PCP - General 07/26/19 Dariana Juarez MD [address] [place] [address] [address] [place] [phone] Consulting Clinician Cardiovascular Disease 02/06/22 documented as of this encounter
--- OUTSIDE RECORDS SUMMARY | 2024-04-22 22:02 | XMS_ITS | Encounter Summary ---
Author Organization [facility] [place] [address] Care Team Providers Care Knobber Name Role Phone Diya Gifford MD Primary Care Provider Encounter Details Date Type Department Care Team (Late st Contact Info) Description 03/06/2020 Tele[place] [address] Kourtney Leos Social History Tobacco Use Types [...] on filedocumented in this encounter Care Teams Knobber Relationship Specialty Start Date End Date Diya Gifford MD [address] [place] [address] PCP - General Family Medicine 08/18/19 documented as of this encounter
--- OUTSIDE RECORDS SUMMARY | 2024-04-22 22:02 | XMS_ITS | Encounter Summary ---
[place] [address] Care Team Providers Care Nurse Unit Manager Name Role Phone Diya Gifford MD Primary Care Provider [phone] Encounter Details Date Type Department Care Team [...] filedocumented in this encounter Care Teams Nurse Unit Manager Relationship Specialty Start Date End Date Diya Gifford MD [address] [place] [address] PCP - General Family Medicine 08/18/19 documented as of this encounter
--- OUTSIDE RECORDS SUMMARY | 2024-04-22 22:02 | XMS_ITS | Encounter Summary ---
Author Organization [facility] Address [address] [place] [address] Care Team Providers Care Facing Baster Name Role Phone Unavailable Primary Care Provider Unavailabl e Encounter Details Date Type Department Care Team (Latest Contact Info) Description 08/17/2000 6:10 EST - 08/18/2000 11:59 EST Hospital Encounter [facility] General Surgery Unit [address] [place], [place] [address] Evelin Roa MD Laub, Juliano Rush MD [address] [facility] [address] [place] [address] Discharge Disposition: Home or Self [...] Info) Description 04/26/2024 9:15 EDT Office Visit [facility] Interventional Pain [address] [place] [address] Percy Molina MD [address] [facility] [address] [place] [address] 01/25/2026 12:00 EDT Office Visit [facility] Cancer Center Hematology & Oncology - [facility] [address] [place] [address] Jorge Lim MD [address] [place] [address] [address] [place] [address] documented as of this encounter [...] ? THONG HESTER ? Accession #: ? [id number] ? : ? 1975 (Age: 25) ??F [...] Roa MD PATHOLOGY ORDERABLES DOUGLAS ALEMAN [address] [place] [address] documented in this encounter Visit Diagnoses Not on filedocumented in this encounter
--- OUTSIDE RECORDS SUMMARY | 2024-04-22 22:02 | XMS_ITS | Encounter Summary ---
Author Organization [facility] [place] [address] Care Team Providers Care Generator Switchboard Operator Name Role Phone Diya Gifford MD Primary Care Provider [phone] Encounter Details Date Type Department Care Team (Late st Contact Info) Description 04/23/2022 1:00 PM EDT Office Visit Dermatology [facility] [address] [place] [address] Luciano Parson MD [address] [facility] [address] [place] Social History Tobacco Use Types Packs/Day [...] Provider: Luciano Parson MD FAAD at Dermatology [facility] Patient's preferred name Marilin Preferred [...] papule on the left chin. Laboratory Results [id number] A. Left preauricular cheek, skin shave biopsy: [...] Total 2 treated with Kenalog 2.5mg/ml [Lot# [id number]/ Exp JUL 2023], total 0.3 ml after [...] dermatitis. [] Recall placed [x] Forwarded to excelsior machine feeder [] Patient scheduled before exiting Scribe attestation: Simone Victor MA has performed the documentation for this encounter in the presence of and acting as a scribe for Luciano Parson MD FAAJenna. I performed the above scribed service and agree with the accuracy of the documentation in this encounter. Reviewed and signed by: Luciano Parson MD FAAD Dermatology [facility] documented in this encounter Plan of Treatment Not on file documented as of this encounter Visit Diagnoses Diagnosis Prurigo documented in this encounter Care Teams Generator Switchboard Operator Relationship Specialty Start Date End Date Diya Gifford MD [address] [place] [address] PCP - General Family Medicine 08/18/19 documented as of this encounter
--- OUTSIDE RECORDS SUMMARY | 2024-04-22 22:02 | XMS_ITS | Encounter Summary ---
Author Organization [facility] Address [facility] [place] [address] Care Team Providers Care Screw Machine Operator Swiss Type Name Role Phone Sly Schultz MD Primary Care Provider [phone] Encounter Details Date Type Department Care Team (Late st Contact Info) Description 05/05/2019 Ancillary Procedure Radiology Library at [facility] [place] [address] Martin Toledo MD [facility] [place] [address] Social History Tobacco Use Types Packs/Day Years [...] DX Shoulder (05/05/2019 12:00 AM EST) Narrative [facility] - 12/01/2019 3:17 PM EDT This exam is auto-finalizing. It's purpose is for storage only. Martin Toledo MD IMG FILM LIBRARY ORD ERABLES [place] documented in this encounter Visit Diagnoses Not on filedocumented in this encounter Care Teams Screw Machine Operator Swiss Type Relationship Specialty Start Date End Date Sly Schultz MD [address] [place] [address] [address] [place] [address] PCP - General 05/21/10 08/17/19 documented as of this encounter
--- OUTSIDE RECORDS SUMMARY | 2024-04-22 22:02 | XMS_ITS | Encounter Summary ---
[place] [address] Care Team Providers Care Fixture Builder Name Role Phone Diya Gifford MD Primary Care Provider [phone] Encounter Details Date Type Department Care Team [...] on filedocumented in this encounter Care Teams Fixture Builder Relationship Specialty Start Date End Date Dyia Gifford MD [address] [place] [address] PCP - General Family Medicine 08/18/19 documented as of this encounter
--- OUTSIDE RECORDS SUMMARY | 2024-04-22 22:02 | XMS_ITS | Encounter Summary ---
Author Organization [facility] Address [facility] [place] [address] Care Team Providers Care Tin Roofer Name Role Phone Diya Gifford MD Primary Care Provider [phone] Encounter Details Date Type Department Care Team (Late st Contact Info) Description 04/10/2020 Notes Only Plastic Surgery at [facility] [place] [address] Arabella Oakley, RN Social History Tobacco Use [...] on filedocumented in this encounter Care Teams Tin Roofer Relationship Specialty Start Date End Date Diya Gifford MD [address] [place] [address] PCP - General Family Medicine 08/18/19 documented as of this encounter
--- OUTSIDE RECORDS SUMMARY | 2024-04-22 22:02 | XMS_ITS | Encounter Summary ---
Author Organization [facility] Address [facility] [place] [address] Care Team Providers Care Non Destructive Evaluation Specialist Name Role Phone Diya Gifford MD Primary Care Provider [phone] Reason for Visit * Reason Comments Follow Up Surgery s/p cleft rhinoplast y Encounter Details Date Type Department Care Team (Late st Contact Info) Description 04/16/2020 9:30 AM EDT Office Visit Plastic Surgery at [facility] [place] [address] Sandi Wong APRN [facility] [place] [address] Surgery follow-up Social History Tobacco Use Types [...] surgery documented in this encounter Care Teams Non Destructive Evaluation Specialist Relationship Specialty Start Date End Date Diya Gifford MD [address] [place] [address] PCP - General Family Medicine 08/18/19 documented as of this encounter
--- OUTSIDE RECORDS SUMMARY | 2024-04-22 22:02 | XMS_ITS | Encounter Summary ---
Author Organization [facility] Address [facility] [place] [address] Care Team Providers Care Ambulance Dispatcher Name Role Phone Diya Gifford MD Primary Care Provider [phone] Reason for Visit * Reason Comments Follow Up Surgery s/p rhinoplasty Encounter Details Date Type Department Care Team (Late st Contact Info) Description 08/28/2020 2:30 PM EST Office [place] [address] Mau Ochoa MD [facility] [place] [address] Nasal septal perforation Social History Tobacco Use [...] sinuses documented in this encounter Care Teams Ambulance Dispatcher Relationship Specialty Start Date End Date Diya Gifford MD [address] [place] [address] PCP - General Family Medicine 08/18/19 documented as of this encounter
--- OUTSIDE RECORDS SUMMARY | 2024-04-22 22:02 | XMS_ITS | Encounter Summary ---
Author Organization [facility] [place] [address] Care Team Providers Care Field Human Resources Manager Name Role Phone Diya Gifford MD Primary Care Provider [phone] [phone] Encounter Details Date Type Department Care Team (Late st Contact Info) Description 04/07/2020 10:15 AM EDT [facility] [place] [address] COVID-19; COVID-19 ruled out Social History Tobacco [...] EDT) SARS-CoV-2 RNA Not Detected Not Detected [facility] Comment: This result should be [...] diagnosis of COVID-19 is performed using the [employer] m SARS-CoV-2 Assay as authorized by the FDA Emergency Use Authorization (EUA). This EUA assay is intended for In-vitro Diagnostic (IVD) use with respiratory specimens such as nasopharyngeal swabs collected from individuals during the acute phase of infection. This assay is performed based on the instructions for use provided by [employer] and additional guidance provided by CDC and FDA. Testing is performed in the Clinical Genomics and Advanced Technology Laboratory within the Department of Pathology and Laboratory Medicine at [facility], certified under the Clinical Laboratory Improvement Amendments [...] fact sheets at the following FDA website: https://www.fda.gov/medical-devices/ubogcmulykp-xategtd-7856-djuup-88-mdjedyhbd- use-a cmccejsrnoltw-rqxrgmg-jxjdhex/qxhvu-qbtdgbpkbhg-pqpj SARS-CoV-2 RNA Source SUPPLY CHAIN DESIGN MANAGER Swab [facility] Nasopharyngeal swab (specimen) 04/07/2020 12:48 PM EDT 04/07/2020 12:48 PM EDT Comment:Symptoms->Asymptomat ic Narrative Resulting Agency Comment Spec In Lab Mau Ochoa MD MOLECULAR ORDERABLES [facility] [place] [address] documented in this encounter Visit Diagnoses Diagnosis COVID-19 COVID-19 ruled out documented in this encounter Care Teams Field Human Resources Manager Relationship Specialty Start Date End Date Diya Gifford MD [address] [place] [address] PCP - General Family Medicine 08/18/19 documented as of this encounter
--- OUTSIDE RECORDS SUMMARY | 2024-04-22 22:02 | XMS_ITS | Encounter Summary ---
Author Organization [facility] [place] [address] Care Team Providers Care Cover Inspector Name Role Phone Diya Gifford MD Primary Care Provider [phone] Encounter Details Date Type Department Care Team (Late st Contact Info) Description 04/09/2021 Telephone [place] [address] Theodora Kelly Social History Tobacco Use Types [...] on filedocumented in this encounter Care Teams Cover Inspector Relationship Specialty Start Date End Date Diya Gifford MD [address] [place] [address] PCP - General Family Medicine 08/18/19 documented as of this encounter
--- OUTSIDE RECORDS SUMMARY | 2024-04-22 22:02 | XMS_ITS | Encounter Summary ---
Author Organization [facility] [place] [address] Care Team Providers Care Military Personnel Specialist Name Role Phone Diya Gifford MD Primary Care Provider Encounter Details Date Type Department Care Team (Late st Contact Info) Description 06/15/2020 9:00 AM EST Office Visit [place] [address] Rebekah Lion MD [facility] [place] [address] Nasal septal perforation Social History Tobacco Use [...] Lion MD - 06/15/2020 9:00 AM EST [facility] Otolaryngology - Head and Neck Surgery Rebekah Lion MD 06/15/20 9:28 AM [place], [place] [address] Office Patient Name: Marilin Allen Date of [...] BY MOUTH TWICE A DAY ??? Acidophilus-Pectin, [place] 25 million cell -100 mg Tablet TAKE [...] (WRVU 10.32) performedby Mau Ochoa MD at [facility] ??? ULNAR TUNNEL RELEASE Left 02/2019 Family and Social History Family History: No family history on file. Social History: Lives in [place] [address] Social History Socioeconomic History ??? Marital status: [...] file Gets together: Not on file Attends restoration service: Not on file Active member of [...] sinuses documented in this encounter Care Teams Military Personnel Specialist Relationship Specialty Start Date End Date Diya Gifford MD [facility] [address] [place] [address] PCP - General Family Medicine 08/18/19 documented as of this encounter
--- OUTSIDE RECORDS SUMMARY | 2024-04-22 22:02 | XMS_ITS | Encounter Summary ---
[place] [address] Care Team Providers Care Wood Borer Name Role Phone Diya Gifford MD Primary Care Provider [phone] Encounter Details Date Type Department Care Team (Late st Contact Info) Description 10/14/2019 Orders [place] [address] Laly Dey, [employer]ANT MANAGER Social History Tobacco Use Types Packs/Day Years [...] on filedocumented in this encounter Care Teams Wood Borer Relationship Specialty Start Date End Date Diya Gifford MD [address] [place] [address] PCP - General Family Medicine 08/18/19 documented as of this encounter
--- OUTSIDE RECORDS SUMMARY | 2024-04-22 22:02 | XMS_ITS | Encounter Summary ---
Author Organization [facility] Address [address] [place] [address] Care Team Providers Care Marketing Program Coordinator Name Role Phone Unavailable Primary Care Provider Unavailabl e Encounter Details Date Type Department Care Team (Late st Contact Info) Description 10/31/2003 9:58 EDT Hospital Encounter [facility] - Other [address] [place] [address] Tisha Sosa MD [address] [place] [address] Social History Tobacco Use Types Packs/Day Years [...] Info) Description 04/26/2024 9:15 EDT Office Visit [facility] Interventional Pain [address] [place] [address] Percy Molina MD [address] [facility] [address] [place] [address] 01/25/2026 12:00 EDT Office Visit [facility] Hematology & Oncology - [facility] [address], [place] [phone] Jorge Lim MD [address] [facility], [address] [place] [address] documented as of this encounter Procedures Procedure Name Priority Date/Time Associated Diagnosis Comments CYTOPATHOLOGY Routine 10/31/2003 0:00 EDT documented in this encounter Results * CYTOPATHOLOGY (10/31/2003 0:00 EDT) Pathology Report: CYTOPATHOLOGY REPORT Reports generated via electronic interface contain original data; however they are lacking the format of the original report. Caution should be taken when reading/interpreti ng unformatted reports. Name: ? BIJU HESTERDA ? Accession #: ? [id number] : ? 1975 (Age: 28) ??F ?Collect [...] ALEMAN 10/31/2003 11/01/2003 Tisha Sosa MD PATHOLOGY ORD[facility] [address] [place] [address] documented in this encounter Visit Diagnoses Not on filedocumented in this encounter
--- OUTSIDE RECORDS SUMMARY | 2024-04-22 22:02 | XMS_ITS | Encounter Summary ---
Author Organization [facility] Address [facility] [place] [address] Care Team Providers Care Meat Counter Clerk Name Role Phone Diya Gifford MD Primary Care Provider [phone] Reason for Visit * Auth/Cert Specialty Diagnoses [...] Expiration Date Visits Re quested Visits Authorized [id number] 1 1 Encounter Details Date Type Department Care Team (Late st Contact Info) Description 04/09/2020 11:40 AM EDT Anesthesia Event [place] [address] Alejandra Otto MD [facility] [place] [address] Pravin Witt CRNA [facility] [place] [address] Anesthesia Record Procedure Summary Procedure Name Responsible [...] 1128; median vein (underside of arm), left; kosi-wpp-mtwfka catheter system; 24 gauge; 0; 04/09/20; 1521 [...] Procedure Summary Date: 04/09/20 [place] / [place] [facility] [place] [address] [place] [address] Anesthesia Start: 1140 Anesthesia Stop: 1404 Procedure: RHINOPLASTY FOR CONGENITAL NASAL DEFORMITY, COLUMELLAR LENGTHENING, TIP ONLY (WRVU 10.32) (Bilateral Nose) Diagnosis: Nasal septal perforation 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) Surgeon: Mau Ochoa MD Responsible Provider: Alejandra Otto MD Anesthesia Type: general ASA Status: 2 All Anesthesia Providers: Anesthesiologist: Alejandra Otto MD SERVICE MEMBER: Pravin Witt CRNA Vitals Value Taken Time BP 120/64 04/09/20 1458 Temp 35.9 ??C (96.6 ??F) 04/09/20 1358 Pulse 110 04/09/20 1458 Resp 18 04/09/20 1458 SpO2 96 % 04/09/20 1458 Pain Level 4 04/09/20 1520 Patient Location: PACU/[facility] Level of Consciousness: Awake and Alert Pain [...] CONGENITAL NASAL DEFORMITY, COLUMELLAR LENGTHENING, TIP ONLY ([facility] 10.[facility]) RHINOPLASTY FOR CONGENITAL NASAL DEFORMITY, COLUMELLAR LENGTHENING, TIP, SEPTUM, OSTEOTOMIES ([facility] 20.28) SEPTOPLASTY OR SMR, W/ OR W/O CARTILAGE SCORING, CONTOURING OR REPLACEMENT W/ GRAFT ([facility] 7.01) Patient Active Problem List Diagnosis ??? [...] risks discussed with patient. Plan discussed with SERVICE MEMBER. PAT Clinic Note documented in this encounter [...] mg documented in this encounter Care Teams Meat Counter Clerk Relationship Specialty Start Date End Date Diya Gifford MD [address] [place] [address] PCP - General Family Medicine 08/18/19 documented as of this encounter
--- OUTSIDE RECORDS SUMMARY | 2024-04-22 22:02 | XMS_ITS | Encounter Summary ---
[place] [address] Care Team Providers Care Mixing Pan Tender Name Role Phone Diya Gifford MD Primary Care Provider [phone] Reason for Referral * Consultation (Urgent) - Duplicate Referral Specialty Diagnoses / Procedures Referred By Ar salinas Referred To Contact [facility] Center Diagnoses Other chronic pain Pain in left shoulder Cervicalgia Diya Gifford MD [address] [place] [address] [facility] [place] [address] Referral ID Status Reason Start Date Expiration Date Visits Requested Visits Authorized [id number] Duplicate Referral Consult, Test & Treat PCP Updated and/or Approved 07/16/2023 07/23/2024 6 6 Encounter Details Date Type Department Care Team (Late st Contact Info) Description 07/24/2023 Transcribe Orders eD Incoming Referrals [phone] Diya Gifford MD [address] [place] [address] Other chronic pain Social History [...] pain documented in this encounter Care Teams Mixing Pan Tender Relationship Specialty Start Date End Date Diya Gifford MD [address] [place] [address] PCP - General Family Medicine 08/18/19 documented as of this encounter
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
--- OUTSIDE RECORDS SUMMARY | 2024-04-22 22:02 | XMS_ITS | Encounter Summary ---
Author Organization [facility] Address [address] [place] [address] Care Team Providers Care Beauty Culturist Apprentice Name Role Phone Unavailable Primary Care Provider Unavailabl e Encounter Details Date Type Department Care Team (Latest Contact Info) Description 04/08/2006 9:13 EDT - 04/08/2006 11:59 EDT Hospital Encounter [facility] [address], [place] [address] Jeet Guan MD Discharge Disposition: Auto Discharge [...] [facility] Interventional Pain [address] [facility] [place], [place] [phone] Percy Molina MD [address] [facility] [address] [place] [address] 01/25/2026 12:00 EDT Office Visit [facility] Hematology & Oncology - [facility] [address], [place] [phone] Jorge Lim MD [address] [facility] [address] [place] [address] documented as of this encounter Visit Diagnoses Not on filedocumented in this encounter
--- OUTSIDE RECORDS SUMMARY | 2024-04-22 22:02 | XMS_ITS | Encounter Summary ---
Author Organization [facility] [place] [address] Care Team Providers Care Marine Equipment Sales Engineer Name Role Phone Diya Gifford MD Primary Care Provider [phone] Reason for Referral * Consultation (Routine) - Authorized Specialty Diagnoses / Procedures Referred By Ar salinas Referred To Contact [facility] Diagnoses Other chronic pain Chronic pain in left shoulder Chronic neck pain Neck w/left shoulder pain/no new imagingplease advise we will not take over medications FVE TPL Diya Gifford MD [address] [place] [address] [facility] [place] [address] Referral ID Status Reason Start Date Expiration Date Visits Requested Visits Authorized [id number] Authorized Consult, Test & Treat PCP Updated and/or Approved 04/23/2024 1 1 Encounter Details Date Type Department Care Team (Latest Contact Info) Description 04/24/2023 Transcribe Orders eDH Incoming Referrals [phone] Diya Gifford MD [address] [place] [address] Other chronic pain; Chronic pain [...] Cervicalgia documented in this encounter Care Teams Marine Equipment Sales Engineer Relationship Specialty Start Date End Date Diya Gifford MD [address] [place] [address] PCP - General Family Medicine 08/18/19 documented as of this encounter
--- OUTSIDE RECORDS SUMMARY | 2024-04-22 22:02 | XMS_ITS | Encounter Summary ---
Author Organization [facility] Address [facility] [place] [address] Care Team Providers Care Director State Pharmacy Name Role Phone Diya Gifford MD Primary Care Provider [phone] Reason for Visit * Reason Comments Cleft Palate * Consultation (Routine) - Closed Specialty Diagnoses / Procedures Referred By Ar t Referred To Contact Plastic Surgery Diagnoses Cleft palate, unspecified S/P MULTIPLE REPAIRS Diya Gifford MD [address] [place] [address] [facility] Surg [address] [address] Referral ID Status Reason Start Date Expiration Date V isits Requested Visits Authorized [id number] Closed Consult, Test & Treat Connection Center PCP Updated and/or Approved 08/17/2019 02/15/2020 1 1 Encounter Details Date Type Department Care Team (Latest Contact Info) Description 10/18/2019 8:45 AM EDT TH Visit (TeleHealth) [place] [address] Mau Ochoa MD [facility] [place] [address] Hx of cleft palate; Oronasal fistula Social [...] needs more completely. Plan: 1. Follow-up in [facility] in approximately 2 months. DOCUMENTATION FOR TELEMEDICINE [...] unspecified documented in this encounter Care Teams Director State Pharmacy Relationship Specialty Start Date End Date Diya Gifford MD [address] [place] [address] PCP - General Family Medicine 08/18/19 documented as of this encounter
--- OUTSIDE RECORDS SUMMARY | 2024-04-22 22:02 | XMS_ITS | Encounter Summary ---
Author Organization [facility] Address [facility] [place] [address] Care Team Providers Care Insurance Agency Owner Name Role Phone Sly Schultz MD Primary Care Provider [phone] Encounter Details Date Type Department Care Team (Late st Contact Info) Description 07/29/2019 Ancillary Procedure Radiology Library at [facility] [place] [address] Diya Gifford MD [address] [place], [place] [id number] Social History Tobacco Use Types Packs/Day Years [...] MR Shoulder (07/29/2019 12:00 AM EST) Narrative [facility] - 12/01/2019 1:44 PM EDT This exam is auto-finalizing. It's purpose is for storage only. Diya Gifford MD IMG FILM LIBRARY OR DERABLES [place], [place] documented in this encounter Visit Diagnoses Not on filedocumented in this encounter Care Teams Insurance Agency Owner Relationship Specialty Start Date End Date Sly Schultz MD [address] [address] [address] [place] [address] PCP - General 05/21/10 08/17/19 documented as of this encounter
--- OUTSIDE RECORDS SUMMARY | 2024-04-22 22:02 | XMS_ITS | Encounter Summary ---
Author Organization [facility] [place] [address] Care Team Providers Care Labor Crew Supervisor Name Role Phone Diya Gifford MD Primary Care Provider [phone] Reason for Referral * Diagnostic Test (Routine) - Closed Specialty Diagnoses / Procedures Referred By Ar salinas Referred To Contact Radiology Diagnoses Hx of cleft palate Oronasal fistula Procedures CT Face wo Contrast Mau Ochoa MD [facility] [place] [address] [facility] [place] [address] Referral ID Status Reason Start Date Expiration Date V isits Requested Visits Authorized [id number] Closed Specialty Service Requested 12/29/2019 06/26/2020 1 1 Reason for Visit * Diagnostic Test (Routine) - Closed Specialty Diagnoses / Procedures Referred By Ar salinas Referred To Contact Radiology Diagnoses Hx of cleft palate Oronasal fistula Procedures CT Face wo Contrast Mau Ochoa MD [facility] [place] [address] [facility] [place] [address] Referral ID Status Reason Start Date Expiration Date V isits Requested Visits Authorized [id number] Closed Specialty Service Requested 12/29/2019 06/26/2020 1 1 Encounter Details Date Type Department Care Team (Latest Contact Info) Description 01/10/2020 8:51 AM EDT - 01/10/2020 11:59 PM EDT Hospital [place] [address] Mau Ochoa MD [facility] [place] [address] Hx of cleft palate; Oronasal fistula Discharge [...] BY MOUTH TWICE A DAY 08/17/2019 Acidophilus-Pectin, Alfarata 25 million cell -100 mg Tablet TAKE [...] below. Electronically signed by: Maria G [facility] ([phone]),at 01/10/2020 4:38 PM Mau Ochoa MD IMG CT ORDERABLES documented in this encounter Visit Diagnoses Diagnosis Hx of cleft palate Personal history of (corrected) congenital malformations of eye, ear, face and neck Oronasal fistula Cleft palate, unspecified documented in this encounter Care Teams Labor Crew Supervisor Relationship Specialty Start Date End Date Diya Gifford MD [address] [place] [address] PCP - General Family Medicine 08/18/19 documented as of this encounter
--- OUTSIDE RECORDS SUMMARY | 2024-04-22 22:02 | XMS_ITS | Encounter Summary ---
[place] [address] Care Team Providers Care Lithostripper Name Role Phone Diya Gifford MD Primary Care Provider [phone] Encounter Details Date Type Department Care Team [...] on filedocumented in this encounter Care Teams Lithostripper Relationship Specialty Start Date End Date Diya Gifford MD [address] [place] [address] PCP - General Family Medicine 08/18/19 documented as of this encounter
[2024-04-22 22:16] LABS: Anion Gap 4.9 mmol/L (3-11); BUN 17 mg/dL (7-18); CO2 29.1 mmol/L (21.0-32.0); CREATININE 1.2 mg/dL (0.55-1.02); Calcium 9.8 mg/dL (8.5-10.1); Chloride 106 mmol/L (98-107); Estimated GFR 55.15 (mL/min/1.73m2); Glucose 95 mg/dL (74-106); Potassium 5.3 mmol/L (3.5-5.1); Sodium 140 mmol/L (136-145)
== END 2024-04-22 21:54 | disposition home or self-care (01) ==
LOC: NCHCN 21:53
PROVIDERS: PCP Nurse Practitioner Psychiatric/Mental Health; Visit Provider Family Medicine
DX: N20.0 Calculus of kidney (principal)
CPT/HCPCS: 80048

== ENCOUNTER 2024-09-02 15:41 | Outpatient (REF) | payer MEDICAID, SELFPAY ==
[2024-09-02 21:35] LABS: Abs Immature Grans 0.01 10^3/uL (0.0-0.06); Absolute Basophil Count 0.04 10^3/uL (0.0-0.2); Absolute Eosinophil Count 0.13 10^3/uL (0.0-0.7); Absolute Lymphocyte Count 2.17 10^3/uL (1.2-3.4); Absolute Monocyte Count 0.45 10^3/uL (0.1-0.8); Absolute Neutrophil Count 4.38 10^3/uL (1.2-6.7); Basophils % 0.6 %; Eosinophils % 1.8 %; HCT 42.2 % (36.0-46.0); HGB 13.7 g/dL (11.2-15.7); Immature Grans % 0.1 %; Lymphocytes % 30.2 %; MCH 31.5 pg (27.0-33.0); MCHC 32.5 % (32.0-36.0); MCV 97 fL (80-95); MPV 10.8 fL (8.0-11.0); Monocytes % 6.3 %; Platelet Count 323 10^3/uL (130-400); RBC 4.35 10^6/uL (3.93-5.22); RDW-SD 43.4 fL; WBC 7.18 10^3/uL (4.4-10.8)
[2024-09-02 21:47] LABS: ALT 25 U/L (14-59); AST 22 U/L (15-37); Albumin 3.5 g/dL (3.4-5.0); Alkaline Phosphatase 65 U/L (46-116); Anion Gap 7.5 mmol/L (3-11); BUN 8 mg/dL (7-18); Bilirubin, Total 0.2 mg/dL (0.2-1.0); CO2 26.5 mmol/L (21.0-32.0); CREATININE 1.1 mg/dL (0.55-1.02); Chloride 107 mmol/L (98-107); Estimated GFR 61.22 (mL/min/1.73m2); Glucose 124 mg/dL (74-106); Potassium 4.4 mmol/L (3.5-5.1); Sodium 141 mmol/L (136-145); Total Protein 6.8 g/dL (6.4-8.2)
[2024-09-02 22:11] LABS: Mono Screening Negative (Negative)
[2024-09-06 11:13] LABS: CMV Ab, IgG Positive (Negative); CMV Ab, IgM Negative (Negative)
== END 2024-09-02 15:42 | disposition home or self-care (01) ==
LOC: NCHCN 15:41
PROVIDERS: PCP Family Medicine; Visit Provider Family Medicine
DX: J02.9 Acute pharyngitis, unspecified (principal)
CPT/HCPCS: 80053; 85025; 86308; 86644; 86645

== ENCOUNTER 2024-10-27 12:21 | Outpatient (REF) | payer MEDICAID, SELFPAY | END 2024-10-27 12:22 | disposition home or self-care (01) | LOC: NCHCN 12:21 | PROVIDERS: PCP Family Medicine; Visit Provider Family Medicine | DX: R30.0 Dysuria (principal); R82.89 Other abnormal findings on cytological and histological examination of urine | CPT/HCPCS: 87086 ==